=== PATIENT | male | born 1955 | race Caucasian/White ===

== ENCOUNTER 2020-05-07 15:10 | Inpatient (IN) | payer MEDICARE, MEDICAID, SELFPAY ==
--- NOTE | ~2020-05-07 | XR_ITS ---
EXAMINATION: XR chest 1V portable INDICATION: Diabetic foot ulcer, fever TECHNIQUE: Portable AP chest at 1725 hours COMPARISON: 10/14/2009 FINDINGS: The lungs are free of acute opacities. There is no pleural effusion or pneumothorax. The ca rdiomediastinal silhouette is normal. IMPRESSION: 1. No acute cardiopulmonary abnormality. Reviewed, dictated and finalized at location A.
--- NOTE | ~2020-05-07 | US_ITS ---
US arterial ankle brachial ind INDICATION: Diabetic foot wound. Peripheral arterial disease. TECHNIQUE: Segmental pressures and plethysmographic and Doppler waveforms of the brachial and lower e xtremity arteries were obtained. COMPARISON: 06/16/2017 FINDINGS: Right and left brachial artery pressures of 124 mm Hg and 140 mm Hg, respectively, are concordant (no rmal difference <= 30 mmHg). The right ankle-brachial index (ROSIE) is 1.21 (normal >= 0.9-1.0). The right great toe-brachial index (TBI) is 0.6 (normal >= 0.60). The left ROSIE is 1.05. The left TBI is 0.6. IMPRESSION: 1. Normal ankle-brachial indices. Reviewed, dictated and finalized at location A.
--- NOTE | ~2020-05-07 | XR_ITS ---
EXAMINATION: XR foot LT min 3V DATE: 05/07/2020 17:33 INDICATION: Left foot pain and ulceration TECHNIQUE: Dorsoplantar, lateral, and 2 oblique views of the left foot were obtained. COMPARISON: None. FINDINGS: A soft tissue ulceration is seen at the plantar aspect of the foot near the fourth and fift h metatarsophalangeal joints. There is a moderate amount of associated soft tissue gas which tracks p roximally in the dorsal/lateral aspect of the foot. There is osteopenia in the medial head of the fif th metatarsal. There also appears to be subtle osteopenia involving the medial base of the fifth prox imal phalanx, the lateral base of the fourth proximal phalanx, and the lateral head of the fourth met atarsal. No fracture is identified. Calcified atherosclerosis is noted. There are dorsal and plantar calcaneal enthesophytes. IMPRESSION: 1. Plantar soft tissue ulceration with soft tissue gas tracking proximally in the lateral foot and fi ndings suggestive of osteomyelitis involving the heads of the fourth and fifth metatarsals and bases of the fourth and fifth proximal phalanges. Reviewed, dictated and finalized at location A. IMPRESSION: 1. Plantar soft tissue ulceration with soft tissue gas tracking proximally in t he lateral foot and findings suggestive of osteomyelitis involving the heads of the fourth and fifth metatarsals and bases of the fourth and fifth proximal ph alanges.
--- NOTE | ~2020-05-07 | MR_ITS ---
EXAMINATION: MR foot LT wo/w con DATE: 05/08/2020 13:48 INDICATION: Left foot osteomyelitis. TECHNIQUE: Magnetic resonance imaging (MRI) of the left foot was performed without and with 18 mL Mul tiHance intravenous contrast. Sequences included sagittal STIR FSE and T1-weighted FSE and short-axis and long-axis T1-weighted FSE and T2-weighted FS FSE. Postcontrast sequences included short-axis and long-axis T1-weighted FS FSE. COMPARISON: Left foot radiographs 06/06/2020 FINDINGS: Bone alignment is normal. No fracture. There is mild osteoarthritis of first metatarsophala ngeal joint and some of the interphalangeal joints and midfoot joints. There is no decreased T1-weigh colin signal intensity in the bone marrow to suggest osteomyelitis. Lisfranc ligament is intact. There is widespread edema in the left foot soft tissues. There is soft tissue gas involving the third, four th, and fifth rays. There is widespread edema of the musculature, likely some combination of subacute denervation and myositis. There is widespread mild fatty atrophy of the musculature. There is an ulc er plantar to the heads of second and third metatarsals. IMPRESSION: 1. No evidence of osteomyelitis. 2. Cellulitis of the foot. Soft tissue gas may be from the plantar ulcer. Necrotizing fasciitis canno t be excluded. Reviewed, dictated and finalized at location A. IMPRESSION: 1. No evidence of osteomyelitis. 2. Cellulitis of the foot. Soft tissue gas may be from the plantar ulcer. Necro tizing fasciitis cannot be excluded.
[2020-05-07 15:16] VITALS: BP 127/61; PULSE 128; RESP 18; TEMP 37.9; O2SAT 98
[2020-05-07 15:28] LABS: Glucose Point of Care 433 (65-105)
[2020-05-07 15:50] LABS: Basophils Percent Auto 0.3 % (0.2-1.2); Eosinophils Percent Auto 0.1 % (0-4.4); Hematocrit 42.2 % (42.0-52.0); Hemoglobin 14.6 g/dL (14.0-18.0); Immature Granulocyte Percent A 2.1 % (0-0.5); Lymphocytes Absolute Auto 0.71 K/mm3 (0.9-3.2); Lymphocytes Percent Auto 4.9 % (18.3-44.2); Mean Corpuscular HGB Conc 34.6 g/dl (32-36); Mean Corpuscular Hemoglobin 29.9 pg (26-34); Mean Corpuscular Volume 86.3 fl (80-100); Mean Platelet Volume 11.6 fl (7.4-10.4); Monocytes Absolute Auto 0.8 K/mm3 (0.1-0.6); Monocytes Percent Auto 5.5 % (2.6-8.5); Neutrophils Absolute Auto 12.7 K/mm3 (1.3-6.7); Neutrophils Percent Auto 87.1 % (45.5-73.1); Platelet Count Result 155 k/mm3 (150-375); Red Blood Count 4.89 M/mm3 (4.6-6.20); Red Cell Distribution Width 12.5 % (11.5-14.5); White Blood Count 14.6 K/mm3 (4.5-10.0)
[2020-05-07 15:59] LABS: INR 1.1; Prothrombin Time 14.1 Seconds (11.1-14.7)
[2020-05-07 16:00] LABS: Partial Thromboplastin Time 30.9 SECONDS (22.3-36.8)
[2020-05-07 16:07] LABS: Lactic Acid Reflex 3.1 mmol/L (0.7-2.1)
[2020-05-07 16:11] LABS: Alanine Aminotransferase 14 U/L (4-50); Albumin Level 3.9 g/dL (3.5-5.1); Alkaline Phosphatase 108 U/L (38-126); Anion Gap 12 mmol/L (8-16); Aspartate Amino Transferase 16 U/L (17-59); Blood Urea Nitrogen 14 mg/dL (9-20); Calcium 9.3 mg/dL (8.4-10.2); Carbon Dioxide 26 mmol/L (22-30); Chloride 93 mmol/L (98-107); Estimated CRCL calculation 68 ml/min; Estimated Glomerular Filt Rate > 60; Glucose 496 mg/dL (75-110); Potassium 4.1 mmol/L (3.4-5.0); Sodium 131 mmol/L (137-145)
--- NOTE | 2020-05-07 16:35 | ECG_ITS ---
Measurements Intervals [place] Rate: 107 P: 23 SD: 151 QRS: 49 QRSD: 104 T: 17 QT: 314 QTc: 419 Interpretive Statements SINUS TACHYCARDIA NONSPECIFIC T-WAVE ABNORMALITY- INFERIOR LEADS BASELINE ARTIFACT- III, AVR, AVL, AVF ABNORMAL ECG Electronically Signed On 05-07-2020 17:46:19 CDT by Jesús Gomez D.O.
[2020-05-07 16:43] LABS: CRP 37.6 mg/dL (<1.0)
[2020-05-07 16:55] VITALS: BP 116/66; PULSE 112; RESP 19; O2SAT 98
[2020-05-07 17:12] LABS: Magnesium 1.8 mg/dL (1.6-2.3); Phosphorus 2.6 mg/dL (2.5-4.5)
[2020-05-07 17:16] LABS: Beta-Hydroxybutyrate/Acetoacetate 0.11 mmol/L (0.02-0.27)
[2020-05-07] MEDS: LACTATED RINGERS 1,000 ML 999 ML IV CONT (17:59)
[2020-05-07] MEDS: SODIUM CHLORIDE 0.9% IV 1,000 ML 999 ML IV CONT (17:59)
--- NOTE | 2020-05-07 18:23 | PCRCNOTE ---
Addendum entered by Nell Kim, [employer] 05/07/20 18:25: SEAN SUMNER NOTIFIED OF REFUSAL Original Note: PT. REFUSED ABG FIORELLA SUMNER NOTIFIED.
--- NOTE | 2020-05-07 18:31 | ED.GENADULT ---
HPI - General Adult General Chief complaint: Wound/Laceration <Yvan Walton PA-C - Last Filed: 05/07/20 18:40> Stated complaint: foot wound x 2 months/non compliant <Yvan Walton PA-C - Last Filed: 05/07/20 18:40> Time Seen by Provider: 05/07/20 16:34 <Yvan Walton PA-C - Last Filed: 05/07/20 18:40> Source: patient <Yvan Walton PA-C - Last Filed: 05/07/20 18:40> Mode of arrival: ambulatory <Yvan Walton PA-C - Last Filed: 05/07/20 18:40> Limitations: no limitations <Yvan Walton PA-C - Last Filed: 05/07/20 18:40> History of Present Illness HPI narrative: Patient is a 64-year-old male who presents to emergency department for evaluation of infection to the left foot patient notes ulceration to the forefoot that he has been managing himself with history of noncompliance with his diabetes hypertension has not seen primary care in 3 years patient notes aching pain worse with weightbearing and activity no subjective fever with chills sweats. Denies any vomiting diarrhea URI symptoms <Yvan Walton PA-C - Last Filed: 05/07/20 18:40> Related Data Home medications: Home Medications Medication Instructions Recorded Confirmed No Home Medications 05/08/20 05/08/20 <Yvan Walton PA-C - Last Filed: 05/07/20 18:40> Allergies/adverse reactions: Allergies Allergy/AdvReac Type Severity Reaction Status Date / Time Dust Allergy Mild Uncoded 10/31/17 11:40 <Yvan Walton PA-C - Last Filed: 05/07/20 18:40> Review of Systems Review of Systems: All systems reviewed & are unremarkable except as noted in HPI and below <Yvan Walton PA-C - Last Filed: 05/07/20 18:40> [facility] Past Medical History Medical History: Medical History (Updated 05/08/20 @ 16:57 by Lety Figueroa PA-C) Chronic constipation Diabetes mellitus Diabetic peripheral neuropathy Hypertension Impotence Noncompliance with medication regimen Peripheral artery disease <BENJA Montalvo Last Filed: 05/07/20 18:40> Surgical History Surgical History: Surgical History H/O arthroscopy of right knee <Yvan Walton PA-C - Last Filed: 05/07/20 18:40> Family History Family History: Family History (Updated 05/08/20 @ 09:53 by Mel Machado DO) Father , age 62 Myocardial infarct Lung disease Mother , age 73 Lung disease Sibling , age 67 Lung disease <Yvan Walton PA-C - Last Filed: 05/07/20 18:40> Social History Social History: Social History (Updated 05/08/20 @ 10:05 by Mel Machado DO) Social History: The patient currently lives at home with his significant other. 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 He has since not been working. Smoking status: Never smoker Second hand tobacco smoke exposure: Yes Alcohol intake: current Drinks per week: 3 Alcohol use details: The patient reports that he used to be a very heavy drinker drinking approximately 10 beers and 10 shots in 1 day. He has since became a social drinker. Specifically since the beginning of COVID- he occasionally has 1-3 beers while out with his significant other. Substance use: never Substance use type: does not use Living arrangements: with family Additional living arrangements comments: He currently lives with his significant other in [place], [place]. he is not Occupation/Education: retired Additional occupation/education comments: see above Gender identity (if verbalized by the patient): Male Spiritual care concerns: No Agree to blood products: Yes <Yvan Walton PA-C - Last Filed: 05/07/20 18:40> Exam Narrative: Exam Narrative: GENERAL: Well-appearing, well-nourished, and in no acute distress. HEAD: Normocephalic,
[2020-05-07 18:47] LABS: Reflex Lactic Acid Yes or No Add Lactic
[2020-05-07 18:48] LABS: Glucose Point of Care 347 (65-105)
[2020-05-07] MEDS: INSULIN HUMAN REGULAR (*BKC) 100 UNITS/ML 8 UNITS IV PUSH (18:56)
[2020-05-07 18:58] VITALS: BP 95/59; PULSE 104; RESP 18; O2SAT 97
[2020-05-07 19:13] VITALS: BP 95/59; PULSE 103; RESP 20; O2SAT 97
[2020-05-07 19:22] LABS: Lactic Acid 1.7 mmol/L (0.7-2.1)
[2020-05-07 19:36] VITALS: BP 96/68; PULSE 100; RESP 18; O2SAT 98
[2020-05-07 19:57] VITALS: BMI 29.7
[2020-05-07 19:58] VITALS: BP 117/58; PULSE 94; RESP 18; TEMP 36.6; O2SAT 98
--- NOTE | 2020-05-07 20:10 | ADMGEN ---
This patient, Rhett Spann, was admitted to Medical Room 340-01. Patient/family oriented to hospital policies and general routines including ID bracelet, bed and alarms, visiting hours, pain management, procedures, bathroom and other care routines, personal items, smoking policy, room service/diet, and visiting hours. Valuables list has been completed. Information on how to activate the Rapid Response Team has been discussed. Patient/Family are encouraged to report perceived risks to care and to ask questions if they do not understand what they are told or what they should do.
[2020-05-07] MEDS: LACTATED RINGERS 1,000 ML 100 ML IV CONT (20:57)
[2020-05-07 21:29] LABS: Glucose Point of Care 266 (65-105)
[2020-05-07] MEDS: HYDROcodone/acetaminophen (*CRX) 7.5-325 MG TABLET 1 TAB PO (21:47)
[2020-05-07] MEDS: FAMOTIDINE 20 MG/2 ML VIAL IV PUSH (21:49)
[2020-05-07 23:22] LABS: Add Urine Microscopic? YES; Appearance Urine Clear (Clear); Bacteria Urine Trace /hpf; Bilirubin Urine Negative (Negative); Blood Urine Negative (Negative); Color Urine Yellow (Yellow); Glucose Urine UA 3+ mg/dL (Negative); Ketones Urine Negative (Negative); Leukocyte Esterase Ur Negative LEU/UL (Negative); Nitrate Urine Negative (Negative); Protein Urine Negative (Negative); RBC Urine 0-2 /hpf (0-2); WBC Urine 0-3 /hpf
[2020-05-07 23:26] LABS: Specific Grav Ur 1.036 (1.001-1.035)
[2020-05-07 23:35] LABS: Glucose Point of Care 275 (65-105)
[2020-05-08] MEDS: INSULIN GLARGINE (*BKC) 100 UNITS/ML 10 UNITS SUB-Q (02:00)
[2020-05-08 02:14] LABS: SARS-CoV-2 RNA PCR Negative
[2020-05-08] MEDS: ONDANSETRON INJ 4 MG/2 ML VIAL IV PUSH ×2 (02:48→09:33)
[2020-05-08 05:28] VITALS: BP 129/69; PULSE 87; RESP 18; TEMP 36.1; O2SAT 97
[2020-05-08 05:57] LABS: Estimated CRCL calculation 68 ml/min; Estimated Glomerular Filt Rate > 60
[2020-05-08 08:00] LABS: Glucose Point of Care 215 (65-105)
[2020-05-08] MEDS: FAMOTIDINE 20 MG/2 ML VIAL IV PUSH ×2 (08:45→20:19)
[2020-05-08 08:52] LABS: Basophils Absolute Auto 0.1 K/mm3 (0.0-0.1); Basophils Percent Auto 0.4 % (0.2-1.2); Eosinophils Absolute Auto 0.1 K/mm3 (0-0.3); Eosinophils Percent Auto 0.5 % (0-4.4); Hematocrit 35.8 % (42.0-52.0); Hemoglobin 12.8 g/dL (14.0-18.0); Immature Granulocyte Absolute 0.17 K/mm3 (0.00-0.031); Immature Granulocyte Percent A 1.1 % (0-0.5); Lymphocytes Absolute Auto 0.67 K/mm3 (0.9-3.2); Lymphocytes Percent Auto 4.5 % (18.3-44.2); Mean Corpuscular HGB Conc 35.8 g/dl (32-36); Mean Corpuscular Hemoglobin 30.8 pg (26-34); Mean Corpuscular Volume 86.1 fl (80-100); Mean Platelet Volume 10.9 fl (7.4-10.4); Monocytes Absolute Auto 1.2 K/mm3 (0.1-0.6); Neutrophils Absolute Auto 12.7 K/mm3 (1.3-6.7); Neutrophils Percent Auto 85.5 % (45.5-73.1); Platelet Count Result 144 k/mm3 (150-375); Red Blood Count 4.16 M/mm3 (4.6-6.20); Red Cell Distribution Width 12.4 % (11.5-14.5); White Blood Count 14.9 K/mm3 (4.5-10.0)
[2020-05-08 08:55] VITALS: PULSE 88; RESP 18; O2SAT 98
--- NOTE | 2020-05-08 08:59 | PM.CNOR ---
Assessment and Plan Assessment and plan (1) Acute osteomyelitis of left foot: Code(s): M86.172 - Other acute osteomyelitis, left ankle and foot Status: Acute Assessment and Plan: 64-year-old male with a 3 month history of a left plantar diabetic foot ulcer over the 4th metatarsal head. Plantar ulcer with probing to bone. Surrounding tissue with redness, warmth, swelling which extends to the dorsal forefoot. Ecchymosis noted over the dorsal for foot as well. Patient does not have a primary care physician, does not see a jig worker and does not wear custom orthotics for depth shoes. He has not been managing his diabetes for approximately 3 years. He denies a history of diabetic foot ulcers or previous surgical intervention for diabetic foot ulcers. He has had no prior treatment for the ulcer. Radiographs of the left foot reveal a plantar soft tissue ulceration with soft tissue gas tracking proximally in the lateral foot and findings suggestive of osteomyelitis involving the heads of the fourth and fifth metatarsals and bases of the fourth and fifth proximal phalanges. Patient to remain NPO at this time for further discussion with Dr. Cotton. Will obtain hemoglobin A1c and a diabetic nurse educator consult in the interim. Dressing was placed. Patient to have dressing changes daily in the interim. Nursing notified to keep the wound covered. Elevate the left lower extremity on pillows. Patient may be weight-bearing on heel with a postop shoe. Walker for balance. (2) Acute hyperglycemia: Code(s): R73.9 - Hyperglycemia, unspecified Status: Acute Assessment and Plan: Patient would benefit from a diabetic nurse educator. We will obtain hemoglobin A1c. Patient will need close diabetic control for optimal healing. (3) Sepsis: Code(s): A41.9 - Sepsis, unspecified organism Status: Acute Assessment and Plan: Continue IV antibiotics under the direction of the medicine team. History of Present Illness HPI Consult date: 05/08/20 Requesting physician: Yvan Walton PA-C Consult reason: other (Left DFU ) Chief complaint: Osteomyelitis left foot, hyperglycemia, sepsis Narrative: 64-year-old male admitted from the emergency room for a left plantar diabetic foot ulcer. Patient reports a 3 month history of a left plantar diabetic foot ulcer which he has been self treating. He has not seen his primary care physician in 3 years. He does not have a jig worker that he sees regularly. He does not wear custom orthotics for depth shoes. He does not take anything for his diabetes. He does not take any medications at all. He reports gradual increase in swelling and pain to the left foot which prompted his arrival to the emergency room. Radiographs from the ED revealed a plantar soft tissue ulceration with soft tissue gas tracking proximally in the lateral foot and findings suggestive of osteomyelitis involving the heads of the fourth and fifth metatarsals and bases of the fourth and fifth proximal phalanges. Orthopedic consultation requested by the emergency room physician. Review of Systems Constitutional: Constitutional: Reports as per HPI, Denies chills, Denies fatigue and Denies weakness ENT: Reports Normal hearing present and Denies nasal discharge Cardiovascular: Cardiovascular: Denies chest pain, Reports pedal edema ( Left lower extremity) and Denies lightheadedness Respiratory: Respiratory: Denies cough, Denies dyspnea and Denies wheezing Gastrointestinal: Gastrointestinal: Denies abdominal pain, Denies diarrhea, Reports nausea and Reports vomiting Genitourinary: Genitourinary: Denies dysuria and Denies urinary frequency Musculoskeletal: Musculoskeletal: Reports as per HPI Integumentary/Breasts: Skin/Breast: Reports as per HPI, Reports erythema and Reports unusual bruising ( dorsal foot) Neurologic: Reports abnormal gait ( antalgic left lower extremity) and Reports numbness ( numb
[2020-05-08 09:02] LABS: Alanine Aminotransferase 9 U/L (4-50); Albumin Level 3.2 g/dL (3.5-5.1); Alkaline Phosphatase 88 U/L (38-126); Anion Gap 7 mmol/L (8-16); Aspartate Amino Transferase 12 U/L (17-59); Bilirubin,Total 1.3 mg/dL (0.2-1.3); Blood Urea Nitrogen 14 mg/dL (9-20); Calcium 8.5 mg/dL (8.4-10.2); Carbon Dioxide 26 mmol/L (22-30); Chloride 99 mmol/L (98-107); Estimated CRCL calculation 75 ml/min; Estimated Glomerular Filt Rate > 60; Glucose 232 mg/dL (75-110); Magnesium 1.7 mg/dL (1.6-2.3); Potassium 4.5 mmol/L (3.4-5.0); Sodium 132 mmol/L (137-145)
[2020-05-08 09:26] LABS: Hemoglobin A1C 8.9 % (<5.7)
[2020-05-08] MEDS: SODIUM CHLORIDE 0.9% IV 1,000 ML 100 ML IV CONT (09:33)
--- NOTE | 2020-05-08 09:45 | PM.IMHP ---
H&P: HPI History of Present Illness Date/Time: 05/08/20 06:00 Chief complaint: left foot wound Narrative: Rhett Spann is a 64 year old male with a past medical history of type 2 diabetes mellitus, diabetic peripheral neuropathy, peripheral artery disease and non adherence to medical regimen who presented to the ER with 3 months of a left foot wound. The patient reports that 3 months ago he noticed a small area vomit foot that seemed to be like clear blister. Few days later he developed an area next to it that appear to be a blood blister. Have TURP about a week he pop the blisters and started applying antibiotic ointment. However , instead of getting better the wound continue to get deeper and was developing more drainage. Over the last 5 weeks he has noticed increased swelling and pain in his foot. Five weeks ago he started developing vomiting, chills and generalized fatigue. He reports that over the last 2 weeks his chills and vomiting have improved. However the pain in his foot has worsened and he has developed swelling in the foot with discoloration in his lateral foot. He reports that the pain is a 7/10 in intensity and is unrelieved despite elevation of the foot. The pain is worse with stepping of the foot or with hitting the foot he reports the pain is unbearable at those times. He reports that his feet are always stinging and burning. He has to sleep with his feet hanging off the into the bed to get any relief. He has longstanding history of diabetes for approximately 21 years. About 3 years ago he threw away all of his diabetic medications and has not seen a physician since that time. He reports that he has otherwise healthy and active. He reports that he is enjoying his life. he used to be on Byetta for his diabetes. He has had peripheral neuropathy for many years. In the past he was on Neurontin for his peripheral neuropathy but did not seem to help at that time. Over the recent months he has been using some of his girlfriend's Neurontin. He has been taking 2 of her Neurontin tablets twice a day with improvement in his pain. His girlfriend was running out of Neurontin so he quit taking it for a couple of months and restarted the Neurontin again over the last 3 or 4 days due to his worsening pain. He reports that the Neurontin actually does improve his discomfort now. He also reports peripheral neuropathy in his hands up to his wrists. He has noticed decreased vision. He reports now that he is receiving some insulin in his sugars are going down his vision has improved. He went to an eye doctor about 3 months ago and was told he had some irregularities in the vessels of his eyes. He has a longstanding history of impotence. He denies a history of kidney disease. On arrival to the ER it sounds as if the patient was having rigors. His temperature at that time was 100.3. He denies any chest pain, palpitations or shortness of breath. He reports resolution of his prior nausea and vomiting. He has had a history of chronic constipation and will only have a bowel movement every 7-10 days. He reports that he has tried MiraLax and stool softeners in the past with only minimal relief in his symptoms. He takes was sounds as if the a [id number]-srevlvf Dulcolax and will eventually have a large hard bowel movement. He has never had a colonoscopy. he has multiple teeth that are broken at the gum line and frequently become painful. He reports that he will pull teeth out on his own if they become bad enough. He has several teeth in his mouth that are uncomfortable at this time. he has a history of claudication with ultrasound Dopplers of his lower extremities in June 2017 which demonstrated evidence of bilateral peripheral artery disease left greater than right. Review of Systems Review of Systems: Narrative: 12 systems were reviewed with pertinent positives and negatives per HPI. Except as documented in the HPI, all other systems were r
--- NOTE | 2020-05-08 10:53 | PM.IMPN ---
Progress Note: A&P Assessment and Plan (1) Acute osteomyelitis of left foot: Code(s): M86.172 - Other acute osteomyelitis, left ankle and foot Status: Acute Assessment and Plan: Patient presents with diabetic wound to left foot that began 3 months ago. Orthopedic surgery and infectious disease following - appreciate recommendations. Continue IV Zosyn today. (2) Sepsis: Qualifiers: Sepsis type: sepsis due to unspecified organism Sepsis acute organ dysfunction status: unspecified Qualified Code(s): A41.9 - Sepsis, unspecified organism Code(s): A41.9 - Sepsis, unspecified organism Status: Acute Assessment and Plan: Evident on arrival by leukocytosis, fever and tachycardia. Suspected source is skin, see above. Wound and blood cultures pending. Monitor vital signs and urine output. Continue IV Zosyn. (3) Uncontrolled diabetes mellitus: Qualifiers: Diabetes mellitus type: type 2 Glycemic state: with hyperglycemia Qualified Code(s): E11.65 - Type 2 diabetes mellitus with hyperglycemia Code(s): E11.65 - Type 2 diabetes mellitus with hyperglycemia Status: Acute Assessment and Plan: Patient is historically noncompliant, has not seen a doctor in years and quit taking diabetes medications 3 years ago. Hgb A1c is 8.9%. He has been started on metformin in addition to a basal-bolus insulin regimen for now. Appreciate Diabetes Education consult. Continue to monitor with Accu-Cheks and cover sliding scale insulin. Increase Lantus for this evening. (4) Chronic constipation: Code(s): K59.09 - Other constipation Status: Acute Assessment and Plan: Patient has been started on BID MiraLax and FiberCon. (5) Insomnia: Qualifiers: Insomnia type: unspecified Qualified Code(s): G47.00 - Insomnia, unspecified Code(s): G47.00 - Insomnia, unspecified Status: Acute Assessment and Plan: Melatonin. Subjective Date/time seen: 05/08/20 10:45 Interval history: Mr. Spann is a 64yo M with uncontrolled DM admitted for left foot diabetic ulcer. He reports his pain is controlled at rest but sometimes gets shooting pain with movement. He denies chest pain or shortness of breath. He denies nausea, vomiting, or abdominal pain. Review of Systems Review of Systems: Narrative: Twelve systems were reviewed with pertinent positives and negatives as per HPI. Exam Narrative: Exam Narrative: General: Male resting supine in bed in no acute distress. HEENT: Normocephalic, EOMI, oral mucosa moist. Cardiovascular: Rate and rhythm are regular. Respiratory: Lungs clear to auscultation all barrientos. Non-labored breathing. Abdomen: Soft, non-tender, non-distended, bowel sounds present. Extremities: Peripheral pulses intact. 1+ swelling to left lower extremity. Dressing to left foot is clean/dry/intact and just seen by ortho this morning so not removed for my exam. Neuro: No focal neurological deficits. Speech is clear. Objective Data Vital Signs Vital Signs: Last Vital Signs Temp 97.5 F L 05/08/20 14:00 Pulse 92 05/08/20 14:00 Resp 20 05/08/20 14:00 BP 120/69 05/08/20 14:00 Pulse Ox 100 05/08/20 14:00 Intake/Output Intake/Output: Intake & Output 05/05/20 05/06/20 05/07/20 05/08/20 23:59 23:59 23:59 23:59 Intake Total 1100 1816 Output Total 425 Balance 1100 1391 Meds/Results Medications: Active Medications Generic Name Dose Route Start Last Admin Trade Name Freq PRN Reason Stop Dose Admin Calcium Polycarbophil 1,250 mg 05/08/20 17:00 Fiber Con PO BID KAYCE Enoxaparin Sodium 40 mg 05/08/20 10:30 Lovenox SUB-Q DAILY KAYCE Famo
[2020-05-08 11:30] LABS: Glucose Point of Care 193 (65-105)
[2020-05-08] MEDS: GABAPENTIN 300 MG CAPSULE PO ×2 (13:52→17:15)
[2020-05-08] MEDS: ENOXAPARIN 40 MG/0.4 ML SYRINGE SUB-Q (13:52)
[2020-05-08 14:00] VITALS: BP 120/69; PULSE 92; RESP 20; TEMP 36.4; O2SAT 100
--- NOTE | 2020-05-08 14:04 | WPDINFPN2 ---
Progress Note: A&P Assessment and Plan (1) Acute osteomyelitis of left foot: Code(s): M86.172 - Other acute osteomyelitis, left ankle and foot Status: Acute Assessment and Plan: Acute OM of L 4th and 5th MTs. DM, poor control. ASPVD. REC Arterial dopplers set up. MRI just done for correlation with exam and plain films. PipTazo #1. Will need extended IV therapy and probably surgical resection also. Glycemic control. Subjective Date/time seen: 05/08/20 14:04 Objective Data Vital Signs Vital Signs: Vital Signs - 24 hr 05/07/20 15:16 05/07/20 16:55 05/07/20 18:58 Temperature 37.9 C H Pulse Rate 128 H 112 H 104 H Respiratory Rate 18 19 18 Blood Pressure 127/61 116/66 95/59 L Pulse Oximetry 98 98 97 05/07/20 19:13 05/07/20 19:36 05/07/20 19:58 Temperature 36.6 C Pulse Rate 103 H 100 94 Respiratory Rate 20 18 18 Blood Pressure 95/59 L 96/68 L 117/58 L Pulse Oximetry 97 98 98 05/08/20 05:28 05/08/20 08:55 Temperature 36.1 C L Pulse Rate 87 88 Respiratory Rate 18 18 Blood Pressure 129/69 Pulse Oximetry 97 98 Intake/Output Intake/Output: Intake & Output 05/05/20 05/06/20 05/07/20 05/08/20 23:59 23:59 23:59 23:59 Intake Total 1100 1866 Output Total 425 Balance 1100 1441 Meds/Results Medications: Active Medications Generic Name Dose Route Start Last Admin Trade Name Freq PRN Reason Stop Dose Admin Calcium Polycarbophil 1,250 mg 05/08/20 17:00 Fiber Con PO BID KAYCE Enoxaparin Sodium 40 mg 05/08/20 10:30 05/08/20 13:52 Lovenox SUB-Q 40 mg DAILY KAYCE Administration Famotidine 20 mg 05/07/20 21:00 05/08/20 08:45 Pepcid Iv IV PUSH 20 mg Q12HR KAYCE Administration Gabapentin 300 mg 05/08/20 13:00 05/08/20 13:52 Neurontin PO 300 mg TID KAYCE Administration Piperacillin/Tazobactam/Dextrose 3.375 gm in 50 mls @ 100 mls/hr 05/08/20 00:00 05/08/20 12:10 Zosyn 3.375 Gm/D5w 50ml Pm IVPB Infused Q6HR KAYCE Infusion Acetaminophen 1,000 mg in 100 mls @ 400 mls/hr 05/07/20 18:38 05/08/20 09:50 Ofirmev 1,000 Mg Ivpb IVPB 05/08/20 18:39 Infused Q6H PRN Infusion Mild Pain (1-3) or Fever Vancomycin HCl 1,500 mg in 500 mls @ 333.333 mls/hr 05/08/20 13:00 05/08/20 13:52 Vancomycin 1,500 Mg/D5w 500 Ml IVPB 250 mls/hr Q18H KAYCE Administration Sodium Chloride 1,000 mls @ 100 mls/hr 05/08/20 09:20 05/08/20 12:40 Normal Saline Iv IV CONT 0 mls/hr .Q10H KAYCE Infusion Insulin Aspart 3 - 6 units 05/08/20 12:00 05/08/20 11:37 Novolog SUB-Q Not Given Q6HR [facility] Protocol Insulin Glargine 10 units 05/08/20 21:00 Lantus SUB-Q HS KAYCE Melatonin 5 mg 05/08/20 21:00 Melatonin PO HS [facility] Metformin HCl 500 mg 05/09/20 08:00 Glucophage PO DAILY@0800 [facility] Ondansetron HCl 4 mg 05/07/20 18:38 05/08/20 09:33 Zofran Inj IV PUSH 4 mg Q4H PRN Administration Nausea Polyethylene Glycol 17 gm 05/08/20 17:00 Miralax PO BID [facility] Radiology Results: ITS Impressions Foot X-Ray 05/07/20 17:42 IMPRESSION: 1. Plantar soft tissue ulceration with soft tissue gas tracking proximally in the lateral foot and findings suggestive of osteomyelitis involving the heads of the fourth and fifth metatarsals and bases of the fourth and fifth proximal phalanges. Chest X-Ray 05/07/20 17:47 IMPRESSION: 1. No acute cardiopulmonary abnormality. Labs Labs: Laboratory Results - last 24 hr 05/07/20 05/07/20 05/07/20 15:25 15:31 15:31 WBC RBC Hgb Hct MCV MCH MCHC RDW Plt Count MPV Immature Gran % (Auto) Neut % (Auto) Lymph % (Auto) [place] % (Auto) Eos % (Auto) Baso % (Auto) Lymph # (Auto) [place] # (Auto) Eos # (Auto) Baso # (Auto) Abs Immat Gran (auto) Absolute Neuts (auto) Absolute Nucleated RBC Nucleated RBC % % Immature Plt Fraction PT INR APTT
[2020-05-08 14:53] LABS: Glucose Point of Care 188 (65-105)
--- NOTE | 2020-05-08 15:52 | CONS_ITS ---
DATE OF CONSULTATION: 05/08/2020 REASON FOR CONSULTATION: Osteomyelitis, left foot and toes. HISTORY OF PRESENT ILLNESS: A 64-year-old male with diabetes since about the age of 20. In the last several years, he has not taken his diabetic medications and does not follow his Accu-Cheks. He provides no particular reason for not doing so. He did have arterial Dopplers or at least ankle arm indices performed some 3 years ago, which were abnormal. He was asked to see his primary physician, but apparently did not do so. He has diminished sensation over his feet at baseline. About 3 months prior to admission, he noted a blood blister over the plantar aspect of the left foot area of the 4th metatarsal head. He popped this open about 3 days later. Since then, he has had a progressive ulcer in the same area. He was applying Neosporin underneath the Band-Aid. There was pain in the lateral aspect of the foot and presented to the emergency room last evening and has been started on piperacillin tazobactam today. Consultation requested. Vancomycin has also been given. He was hyperglycemic on arrival. He has had no previous foot or toe surgeries and knows of no major trauma. He knows of no other vascular compromise except as noted above. No symptoms on the right foot. He does have calluses. He does not customarily see a elevator dispatcher. He was febrile earlier, but no rigors nor night sweats. There has been no nausea or vomiting. ALLERGIES: NO KNOWN DRUG ALLERGY. HABITS: Never smoked. He is a social drinker, though formally drank to excess. No illicit drugs. PRESENT MEDICATIONS: List reviewed. No immunosuppressants. PAST MEDICAL HISTORY: In addition to the above, peripheral neuropathy, chronic constipation, hypertension, ED, arthroscopic knee surgery on the right. REVIEW OF SYSTEMS: Poor dentition, not actively seeing a dentist. Hyperglycemia, constipation, declining eyesight. 14-point review otherwise negative. FAMILY HISTORY: Cancer associated with smoking in multiple family members. No diabetes in primary relatives. SOCIAL HISTORY: He is , has a live-in girlfriend. 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 He is planning on not returning to work. PHYSICAL EXAMINATION: GENERAL: This is a middle-aged male who appears his actual age. No acute distress. VITAL SIGNS: T-max 37.9, 88, 18, 129/69. SKIN: No generalized rash. Warm and dry. EENT: The pupils are equal, round, and reactive to light. No conjunctival injection. Poor dentition. Otherwise, oropharynx, oral mucosa normal. No paranasal sinus erythema, edema or tenderness. NECK: No masses, thyromegaly or meningismus. LUNGS: Clear to auscultation and percussion. BACK: No CVAT. CHEST: Equal expansion. Normal AP diameter. CARDIAC: Regular rate and rhythm without murmur or gallop. Popliteal pulses are 2+. Dorsalis pedis on the left is 1+, posterior tibial not palpable. ABDOMEN: He has no abdominal bruits. Abdomen is soft, not nontender. No organomegaly, masses, or distention. He has normal bowel sounds. EXTREMITIES: On the right, no clubbing, cyanosis, or edema. No muscle wasting. No venous varicosities. On the left, he has red purplish discoloration over the dorsum of the foot, lateral aspect, and he has a deep ulcer 1 cm in diameter with surrounding callus. No purulence. No odor. No areas of necrosis. LABORATORY DATA: Blood cultures, no growth after short incubation. Wound culture is in process. This was a superficial swab of the ulcer, gram stain, many mixed bacterial marya. White blood cell count 14.6 initially, now 14.9; hemoglobin 12.8; platelets are 144. His differential shows a mild left shift. Prothrombin time normal. He has hyponatremia, glucose initially 496
[2020-05-08 17:03] LABS: Glucose Point of Care 242 (65-105)
[2020-05-08] MEDS: calcium polycarbophiL 625 MG TABLET 1250 MG PO (17:15)
[2020-05-08] MEDS: polyethylene glycoL 3350 17 GM POWD.PACK PO (17:16)
[2020-05-08] MEDS: INSULIN ASPART (*BKC) 100 UNITS/ML SUB-Q (17:19)
[2020-05-08 19:27] VITALS: BP 143/78; PULSE 112; RESP 20; TEMP 37.2; O2SAT 98
[2020-05-08] MEDS: MELATONIN 5 MG TABLET PO (20:19)
[2020-05-08] MEDS: INSULIN GLARGINE (*BKC) 100 UNITS/ML 15 UNITS SUB-Q (20:31)
[2020-05-08] MEDS: HYDROcodone/acetaminophen (*CRX) 5-325 MG TABLET 1 TAB PO (20:48)
[2020-05-08 22:26] LABS: Glucose Point of Care 260 (65-105)
[2020-05-09] MEDS: INSULIN ASPART (*BKC) 100 UNITS/ML SUB-Q ×4 (00:23→11:33)
[2020-05-09] MEDS: SODIUM CHLORIDE 0.9% IV 1,000 ML 100 ML IV CONT (00:30)
[2020-05-09 00:47] LABS: Glucose Point of Care 222 (65-105)
[2020-05-09 05:40] LABS: Basophils Percent Auto 0.3 % (0.2-1.2); Eosinophils Absolute Auto 0.1 K/mm3 (0-0.3); Eosinophils Percent Auto 0.4 % (0-4.4); Hematocrit 35.1 % (42.0-52.0); Hemoglobin 12.1 g/dL (14.0-18.0); Immature Granulocyte Absolute 0.32 K/mm3 (0.00-0.031); Lymphocytes Absolute Auto 0.82 K/mm3 (0.9-3.2); Lymphocytes Percent Auto 5.1 % (18.3-44.2); Mean Corpuscular HGB Conc 34.5 g/dl (32-36); Mean Corpuscular Hemoglobin 29.4 pg (26-34); Mean Corpuscular Volume 85.2 fl (80-100); Mean Platelet Volume 11.6 fl (7.4-10.4); Monocytes Absolute Auto 1.4 K/mm3 (0.1-0.6); Monocytes Percent Auto 8.5 % (2.6-8.5); Neutrophils Absolute Auto 13.4 K/mm3 (1.3-6.7); Neutrophils Percent Auto 83.7 % (45.5-73.1); Platelet Count Result 158 k/mm3 (150-375); Red Blood Count 4.12 M/mm3 (4.6-6.20); Red Cell Distribution Width 12.4 % (11.5-14.5)
[2020-05-09 05:54] VITALS: BP 112/60; PULSE 100; RESP 16; TEMP 36.8; O2SAT 98
[2020-05-09 06:00] LABS: Anion Gap 9 mmol/L (8-16); Blood Urea Nitrogen 13 mg/dL (9-20); Calcium 8.6 mg/dL (8.4-10.2); Carbon Dioxide 23 mmol/L (22-30); Chloride 99 mmol/L (98-107); Estimated CRCL calculation 75 ml/min; Estimated Glomerular Filt Rate > 60; Glucose 225 mg/dL (75-110); Magnesium 1.7 mg/dL (1.6-2.3); Potassium 3.8 mmol/L (3.4-5.0); Sodium 131 mmol/L (137-145)
[2020-05-09 06:18] LABS: Glucose Point of Care 203 (65-105)
[2020-05-09] MEDS: ENOXAPARIN 40 MG/0.4 ML SYRINGE SUB-Q (08:37)
[2020-05-09] MEDS: FAMOTIDINE 20 MG/2 ML VIAL IV PUSH ×2 (08:37→20:00)
[2020-05-09] MEDS: GABAPENTIN 300 MG CAPSULE PO ×3 (08:37→16:31)
[2020-05-09] MEDS: polyethylene glycoL 3350 17 GM POWD.PACK PO ×2 (08:37→16:32)
[2020-05-09] MEDS: HYDROcodone/acetaminophen (*CRX) 5-325 MG TABLET 1 TAB PO (08:54)
[2020-05-09 09:40] VITALS: BMI 29.7
[2020-05-09] MEDS: calcium polycarbophiL 625 MG TABLET 1250 MG PO ×2 (10:29→16:32)
--- NOTE | 2020-05-09 10:38 | PM.PNORT ---
Progress Note: A&P Assessment and Plan (1) Cellulitis of left foot: Code(s): L03.116 - Cellulitis of left lower limb Status: Acute Assessment and Plan: MRI reviewed left foot. No evidence of osteomyelitis on imaging. Ulcer does probe to the plantar 4th metatarsal. Cultures showing strep B. planned continue with IV antibiotics and follow progress. If continues to improve may only require superficial ulcer debridement. If he does not show signs of improvement may require debridement or resection metatarsal bone. Patient on the OR schedule for Tuesday depending on progress over the weekend. Appreciate Infectious Disease. 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: Code(s): E08.621 - Diabetes mellitus due to underlying condition with foot ulcer; L97.509 - Non-pressure chronic ulcer of other part of unspecified foot with unspecified severity Status: Acute Assessment and Plan: Continue with daily dressing changes and wound packing with Nu Gauze Subjective Subjective Date/Time Seen: 05/09/20 10:38 No new complaints, mri lt foot yesterday Exam Const: General: comfortable and no acute distress HENMT: Mouth: Yes moist mucous membranes Eyes: General: appearance normal, both eyes and all related structures Sclera: sclerae normal Pupils: Equal, round and reactive pupils present Neck: Neck: supple and no JVD Resp: Effort & Inspection: normal respiratory effort Auscultation: clear to auscultation bilaterally Cardio: Rate: regular rate Rhythm: regular rhythm GI: Inspection: non-distended GI Palp: Yes Soft to palpation and No Tenderness to palpation present (GI) Skin: Other: Left plantar diabetic foot ulcer over the 4th metatarsal head measures 1.0 cm in width x 1.6 cm in length with 1.4 cm in depth which probes to the metatarsal head. Necrotic tissue at the base of the ulcer. Callus surrounding ulceration. No drainage noted. Surrounding tissue with redness, warmth, swelling. Swelling extends to the dorsal aspect of the foot. Erythema and ecchymosis to the dorsal lateral aspect of the left foot as well. Erythema more consolidated. No active drainage Neuro: General: No gait normal ( Antalgic left lower extremity.) Cognition (Neuro): normal cognition Sensory Exam: No normal sensation Other: Patient is insensate from toes to the baker of the left lower extremity. Sensation intact to the right ankle, midfoot and forefoot. Extrem: Right lower extremity: normal to inspection, full ROM, normal capillary refill and foot ( No ulcers noted.) Left lower extremity: lower leg, ankle ( positive ankle dorsiflexion/ plantar flexion) and foot Psych: Mental Status: mental status grossly normal Affect: normal affect Objective Data Vital Signs Vital Signs: Vital Signs - 24 hr 05/08/20 14:00 05/08/20 19:27 05/09/20 05:54 Temperature 97.5 F L 99 F 98.3 F Pulse Rate 92 112 H 100 Respiratory Rate 20 20 16 Blood Pressure 120/69 143/78 H 112/60 Pulse Oximetry 100 98 98 Intake/Output Intake/Output: Intake & Output 05/06/20 05/07/20 05/08/20 05/09/20 23:59 23:59 23:59 23:59 Intake Total 1100 2896 2580 Output Total 925 625 Balance 1100 1971 1954 Meds/Results Medications: Active Medications Generic Name Dose Route Start Last Admin Trade Name Freq PRN Reason Stop Dose Admin Hydrocodone Bitart/Acetaminophen 1 tab 05/08/20 20:38 05/09/20 08:54 [place] 5-325 Mg PO 1 tab Q4H PRN Administration Pain Rated 4-6 Calcium Polycarbophil 1,250 mg 05/08/20 17:00 05/09/20 10:29 Fiber Con PO 1,250 mg BID KAYCE Administration Enoxaparin Sodium 40 mg 05/08/20 10:30 05/09/20 08:37 Lovenox SUB-Q 40 mg DAILY KAYCE Administration Famotidine 20 mg 05/07/20 21:00 05/09/20 08:37 Pepcid Iv IV PUSH 20 mg Q12HR KAYCE Administration Gabapentin 300 mg 05/08/20 13:00 05/09/20 08:37 Neurontin PO 300 mg TID SC
--- NOTE | 2020-05-09 11:17 | PM.IMPN ---
Progress Note: A&P Assessment and Plan (1) Acute osteomyelitis of left foot: Code(s): M86.172 - Other acute osteomyelitis, left ankle and foot Status: Acute Assessment and Plan: Patient presents with diabetic wound to left plantar 4th and 5th metatarsals that began 3 months ago. Orthopedic surgery and infectious disease following - appreciate recommendations. Continue IV Zosyn today. Anticipate need for long-term antibiotics per Dr Moore's recommendations. Noted Dr Cotton's plan to monitor his progress over the weekend and keep his slot on the OR schedule for Tuesday in the event he does not make much improvement; may require debridement or resection of bone pending progress. (2) Sepsis: Qualifiers: Sepsis acute organ dysfunction status: unspecified Sepsis type: sepsis due to unspecified organism Qualified Code(s): A41.9 - Sepsis, unspecified organism Code(s): A41.9 - Sepsis, unspecified organism Status: Acute Assessment and Plan: Evident on arrival by leukocytosis, fever and tachycardia. Suspected source is skin, see above. Wound culture growing Group B Strep. Blood cultures are pending with no growth to date. Monitor vital signs and urine output. Continue IV Zosyn. (3) Uncontrolled diabetes mellitus: Qualifiers: Diabetes mellitus type: type 2 Glycemic state: with hyperglycemia Qualified Code(s): E11.65 - Type 2 diabetes mellitus with hyperglycemia Code(s): E11.65 - Type 2 diabetes mellitus with hyperglycemia Status: Acute Assessment and Plan: Patient is historically noncompliant, has not seen a doctor in years and quit taking diabetes medications 3 years ago. Hgb A1c is 8.9%. He has been started on metformin. Seen by DM educator today. Lantus will be too expensive for him. We will start him on Novolin 70/30 which he can get cheaper at [facility]; start this regimen and monitor response. Continue to monitor with Accu-Cheks and cover sliding scale insulin. (4) Chronic constipation: Code(s): K59.09 - Other constipation Status: Acute Assessment and Plan: Patient has been started on BID MiraLax and FiberCon. (5) Insomnia: Qualifiers: Insomnia type: unspecified Qualified Code(s): G47.00 - Insomnia, unspecified Code(s): G47.00 - Insomnia, unspecified Status: Acute Assessment and Plan: Melatonin. Subjective Date/time seen: 05/09/20 1045 Interval history: Mr. Spann is a 64yo M with uncontrolled DM admitted for left foot diabetic ulcer. He reports his pain is controlled at present while he is resting, some shooting pain to left leg/foot with movement. Otherwise offers no complaints at time of my encounter. I am notified by nursing later this afternoon that he had a brief episode of diaphoresis and shortness of breath that resolved quickly, during which his vital signs were normal. Review of Systems Review of Systems: Narrative: Twelve systems were reviewed with pertinent positives and negatives as per HPI. Exam Narrative: Exam Narrative: General: Male resting supine in bed in no acute distress. HEENT: Normocephalic, EOMI, oral mucosa moist. Cardiovascular: Rate and rhythm are regular. Respiratory: Lungs clear to auscultation all barrientos. Non-labored breathing. Abdomen: Soft, non-tender, non-distended, bowel sounds present. Extremities: Peripheral pulses intact. 1+ swelling to left lower extremity. Dressing to left foot is clean/dry/intact. Neuro: No focal neurological deficits. Speech is clear. Objective Data Vital Signs Vital Signs: Last Vital Signs Temp 98.3 F 05/09/20 15:03 Pulse 97 05/09/20 15:03 Resp 18 05/09/20 15:03 BP 112/76
[2020-05-09 11:55] LABS: Glucose Point of Care 162 (65-105)
--- NOTE | 2020-05-09 14:31 | WPDINFPN2 ---
Progress Note: A&P Assessment and Plan (1) Acute osteomyelitis of left foot: Code(s): M86.172 - Other acute osteomyelitis, left ankle and foot Status: Acute Assessment and Plan: 1. Acute OM of L 4th and 5th MTs clinically, although MRI more suggestive of severe soft tissue infection. In terms of his choice and duration of antibiotic therapy, the distinction is less important 2. DM, poor control. 3. ASPVD, with borderline normal ROSIE on left. REC PipTazo #2, 6 weeks anticipated through 06/17. Glycemic control. Possible surgical debridement in 3 days Subjective Date/time seen: 05/09/20 14:31 Interval history: no complaints, other than episode of diaphoresis overnight Exam Narrative: Exam Narrative: afebrile Const: General: no acute distress Resp: Effort & Inspection: normal respiratory effort Auscultation: clear to auscultation bilaterally Cardio: Rate: regular rate Rhythm: regular rhythm Heart sounds: no gallops and no murmurs GI: Inspection: non-distended GI Palp: Yes Soft to palpation and No Tenderness to palpation present (GI) Skin: General skin exam: normal color Extrem: General: edema Objective Data Vital Signs Vital Signs: Vital Signs - 24 hr 05/08/20 19:27 05/09/20 05:54 Temperature 37.2 C 36.8 C Pulse Rate 112 H 100 Respiratory Rate 20 16 Blood Pressure 143/78 H 112/60 Pulse Oximetry 98 98 Intake/Output Intake/Output: Intake & Output 05/06/20 05/07/20 05/08/20 05/09/20 23:59 23:59 23:59 23:59 Intake Total 1100 2896 2630 Output Total 925 923 Balance 1100 1971 2004 Meds/Results Medications: Active Medications Generic Name Dose Route Start Last Admin Trade Name Freq PRN Reason Stop Dose Admin Hydrocodone Bitart/Acetaminophen 1 tab 05/08/20 20:38 05/09/20 08:54 [place] 5-325 Mg PO 1 tab Q4H PRN Administration Pain Rated 4-6 Calcium Polycarbophil 1,250 mg 05/08/20 17:00 05/09/20 10:29 Fiber Con PO 1,250 mg BID KAYCE Administration Enoxaparin Sodium 40 mg 05/08/20 10:30 05/09/20 08:37 Lovenox SUB-Q 40 mg DAILY KAYCE Administration Famotidine 20 mg 05/07/20 21:00 05/09/20 08:37 Pepcid Iv IV PUSH 20 mg Q12HR KAYCE Administration Gabapentin 300 mg 05/08/20 13:00 05/09/20 13:23 Neurontin PO 300 mg TID KAYCE Administration Piperacillin/Tazobactam/Dextrose 3.375 gm in 50 mls @ 100 mls/hr 05/08/20 00:00 05/09/20 12:15 Zosyn 3.375 Gm/D5w 50ml Pm IVPB Infused Q6HR KAYCE Infusion Insulin Aspart 3 - 6 units 05/09/20 08:20 05/09/20 11:32 Novolog SUB-Q Not Given TIDWM [facility] Protocol Insulin Aspart 5 units 05/09/20 08:20 05/09/20 11:33 Novolog SUB-Q 5 units TIDWM KAYCE Administration Insulin Glargine 15 units 05/08/20 21:00 05/08/20 20:31 Lantus SUB-Q 15 units HS KAYCE Administration Melatonin 5 mg 05/08/20 21:00 05/08/20 20:19 Melatonin PO 5 mg HS KAYCE Administration Metformin HCl 500 mg 05/09/20 17:00 Glucophage PO BIDWM KAYCE Ondansetron HCl 4 mg 05/07/20 18:38 05/08/20 09:33 Zofran Inj IV PUSH 4 mg Q4H PRN Administration Nausea Polyethylene Glycol 17 gm 05/08/20 17:00 05/09/20 08:37 Miralax PO 17 gm BID KAYCE Administration Radiology Results: ITS Impressions Foot X-Ray 05/07/20 17:42 IMPRESSION: 1. Plantar soft tissue ulceration with soft tissue gas tracking proximally in the lateral foot and findings suggestive of osteomyelitis involving the heads of the fourth and fifth metatarsals and bases of the fourth and fifth proximal phalanges. Chest X-Ray 05/07/20 17:47 IMPRESSION: 1. No acute cardiopulmonary abnormality. Foot MRI 05/08/20 14:02 IMPRESSION: 1. No evidence of osteomyelitis. 2. Cellulitis of the foot. Soft tissue gas may be from the plantar ulcer. Necrotizing fasciitis cannot be excluded. Ankle Brachial Index 05/08/20 15:50 IMPRESSION: 1. Normal ankle-brachial indices.
[2020-05-09 15:03] VITALS: BP 112/76; PULSE 97; RESP 18; TEMP 36.8; O2SAT 94
[2020-05-09 16:03] VITALS: TEMP 37.9
[2020-05-09 16:31] VITALS: TEMP 37.9
[2020-05-09] MEDS: ACETAMINOPHEN 325 MG TABLET 650 MG PO (16:31)
[2020-05-09] MEDS: metFORMIN HCL 500 MG TABLET PO (16:32)
[2020-05-09 17:05] LABS: Glucose Point of Care 108 (65-105)
[2020-05-09 17:16] VITALS: TEMP 37.2
[2020-05-09] MEDS: ONDANSETRON INJ 4 MG/2 ML VIAL IV PUSH (17:53)
[2020-05-09] MEDS: MELATONIN 5 MG TABLET PO (20:00)
[2020-05-09 20:41] VITALS: BP 105/64; PULSE 99; RESP 16; TEMP 36.8; O2SAT 98
[2020-05-09 23:47] LABS: Glucose Point of Care 111 (65-105)
[2020-05-10 05:14] VITALS: BP 121/69; PULSE 97; RESP 16; TEMP 36.7; O2SAT 94
[2020-05-10] MEDS: INSULIN HUMAN ISOPHAN/REGULAR 70/30 (*BKC) 100 UNITS/ML 10 UNITS SUB-Q ×2 (05:34→16:57)
[2020-05-10 05:46] LABS: Basophils Absolute Auto 0.1 K/mm3 (0.0-0.1); Basophils Percent Auto 0.6 % (0.2-1.2); Eosinophils Percent Auto 0.3 % (0-4.4); Hematocrit 33.4 % (42.0-52.0); Hemoglobin 11.6 g/dL (14.0-18.0); Immature Granulocyte Absolute 0.14 K/mm3 (0.00-0.031); Lymphocytes Absolute Auto 0.89 K/mm3 (0.9-3.2); Lymphocytes Percent Auto 6.3 % (18.3-44.2); Mean Corpuscular HGB Conc 34.7 g/dl (32-36); Mean Corpuscular Hemoglobin 30.2 pg (26-34); Mean Platelet Volume 11.5 fl (7.4-10.4); Monocytes Percent Auto 6.7 % (2.6-8.5); Neutrophils Absolute Auto 12.1 K/mm3 (1.3-6.7); Neutrophils Percent Auto 85.1 % (45.5-73.1); Platelet Count Result 159 k/mm3 (150-375); Red Blood Count 3.84 M/mm3 (4.6-6.20); Red Cell Distribution Width 12.9 % (11.5-14.5); White Blood Count 14.2 K/mm3 (4.5-10.0)
[2020-05-10 06:02] LABS: Anion Gap 11 mmol/L (8-16); Blood Urea Nitrogen 17 mg/dL (9-20); Calcium 8.8 mg/dL (8.4-10.2); Carbon Dioxide 24 mmol/L (22-30); Chloride 97 mmol/L (98-107); Estimated CRCL calculation 68 ml/min; Estimated Glomerular Filt Rate > 60; Glucose 132 mg/dL (75-110); Magnesium 1.9 mg/dL (1.6-2.3); Potassium 4.2 mmol/L (3.4-5.0); Sodium 132 mmol/L (137-145)
[2020-05-10 08:06] LABS: Glucose Point of Care 178 (65-105)
[2020-05-10 08:17] LABS: Glucose Point of Care 120 (65-105)
[2020-05-10] MEDS: HYDROcodone/acetaminophen (*CRX) 5-325 MG TABLET 1 TAB PO ×2 (09:26→20:30)
[2020-05-10] MEDS: metFORMIN HCL 500 MG TABLET PO ×2 (09:26→16:56)
[2020-05-10] MEDS: calcium polycarbophiL 625 MG TABLET 1250 MG PO ×2 (09:26→16:56)
[2020-05-10] MEDS: FAMOTIDINE 20 MG/2 ML VIAL IV PUSH ×2 (09:27→20:30)
[2020-05-10] MEDS: GABAPENTIN 300 MG CAPSULE PO ×3 (09:27→16:56)
[2020-05-10] MEDS: ENOXAPARIN 40 MG/0.4 ML SYRINGE SUB-Q (09:27)
[2020-05-10] MEDS: polyethylene glycoL 3350 17 GM POWD.PACK PO ×2 (09:27→16:57)
--- NOTE | 2020-05-10 12:31 | PM.IMPN ---
Progress Note: A&P Assessment and Plan (1) Acute osteomyelitis of left foot: Code(s): M86.172 - Other acute osteomyelitis, left ankle and foot Status: Acute Assessment and Plan: Patient presents with diabetic wound to left plantar 4th and 5th metatarsals that began 3 months ago. Orthopedic surgery and infectious disease following - appreciate recommendations. Continue IV Zosyn today. Anticipate need for long-term antibiotics per Dr Moore's recommendations. Noted Dr Cotton's plan to monitor his progress over the weekend and keep his slot on the OR schedule for Tuesday in the event he does not make much improvement; may require debridement or resection of bone pending progress. (2) Sepsis: Qualifiers: Sepsis acute organ dysfunction status: unspecified Sepsis type: sepsis due to unspecified organism Qualified Code(s): A41.9 - Sepsis, unspecified organism Code(s): A41.9 - Sepsis, unspecified organism Status: Acute Assessment and Plan: Evident on arrival by leukocytosis, fever and tachycardia. Suspected source is skin, see above. Wound culture growing Group B Strep. Blood cultures are pending with no growth to date. Monitor vital signs and urine output. Continue IV Zosyn. (3) Uncontrolled diabetes mellitus: Qualifiers: Diabetes mellitus type: type 2 Glycemic state: with hyperglycemia Qualified Code(s): E11.65 - Type 2 diabetes mellitus with hyperglycemia Code(s): E11.65 - Type 2 diabetes mellitus with hyperglycemia Status: Acute Assessment and Plan: Patient is historically noncompliant, has not seen a doctor in years and quit taking diabetes medications 3 years ago. Hgb A1c is 8.9%. He has been started on metformin. Seen by DM educator today. Lantus will be too expensive for him. We have started Novolin 70/30 which he can get cheaper at [facility]. Blood sugars are better controlled today, not eating much though. Continue to monitor with Accu-Cheks and cover sliding scale insulin. (4) Chronic constipation: Code(s): K59.09 - Other constipation Status: Acute Assessment and Plan: Patient has been started on BID MiraLax and FiberCon. (5) Insomnia: Qualifiers: Insomnia type: unspecified Qualified Code(s): G47.00 - Insomnia, unspecified Code(s): G47.00 - Insomnia, unspecified Status: Acute Assessment and Plan: Melatonin. Subjective Date/time seen: 05/10/20 12:00 Interval history: Mr. Spann is a 64yo M with uncontrolled DM admitted for left foot diabetic ulcer. He is experiencing worse pain to left leg and foot today. He slept okay. Denies chest pain or shortness of breath. He is tolerating some oral intake nausea or vomiting but has a poor appetite, not eating very much. Review of Systems Review of Systems: Narrative: Twelve systems were reviewed with pertinent positives and negatives as per HPI. Exam Narrative: Exam Narrative: General: Male resting supine in bed in no acute distress. HEENT: Normocephalic, EOMI, oral mucosa moist. Cardiovascular: Rate and rhythm are regular. Respiratory: Lungs clear to auscultation all barrientos. Non-labored breathing. Abdomen: Soft, non-tender, non-distended, bowel sounds present. Extremities: Peripheral pulses intact. 1+ swelling to left lower extremity. Left foot: Wound to plantar aspect over 4th and 5th metatarsals, dorsum of foot over 4th and 5th metatarsals is erythematous and violaceous, left 4th toe is dusky purple, entire left foot is markedly edematous and painful to touch. Neuro: No focal neurological deficits. Speech is clear. Objective Data Vital Signs Vital Signs: Last Vital Signs Temp 97.7 F 05/10/20 14
[2020-05-10 12:35] LABS: Glucose Point of Care 176 (65-105)
[2020-05-10 14:00] VITALS: BP 116/74; PULSE 86; RESP 14; TEMP 36.5; O2SAT 97
[2020-05-10 16:32] LABS: Glucose Point of Care 149 (65-105)
[2020-05-10 17:49] LABS: SARS-CoV-2 RNA PCR Negative
[2020-05-10] MEDS: MELATONIN 5 MG TABLET PO (20:30)
[2020-05-10 20:51] VITALS: BP 128/70; PULSE 94; RESP 16; TEMP 37.4; O2SAT 100
[2020-05-11 01:26] LABS: Glucose Point of Care 144 (65-105)
[2020-05-11] MEDS: INSULIN HUMAN ISOPHAN/REGULAR 70/30 (*BKC) 100 UNITS/ML 10 UNITS SUB-Q (05:56)
[2020-05-11 06:00] VITALS: BP 124/77; PULSE 89; RESP 16; TEMP 37.3; O2SAT 96
[2020-05-11] MEDS: HYDROcodone/acetaminophen (*CRX) 5-325 MG TABLET 1 TAB PO ×4 (06:16→20:14)
[2020-05-11 06:26] LABS: Glucose Point of Care 127 (65-105)
[2020-05-11 06:35] LABS: Basophils Percent Auto 0.3 % (0.2-1.2); Eosinophils Absolute Auto 0.1 K/mm3 (0-0.3); Eosinophils Percent Auto 0.6 % (0-4.4); Hematocrit 32.5 % (42.0-52.0); Hemoglobin 11.5 g/dL (14.0-18.0); Immature Granulocyte Absolute 0.05 K/mm3 (0.00-0.031); Immature Granulocyte Percent A 0.5 % (0-0.5); Lymphocytes Absolute Auto 0.85 K/mm3 (0.9-3.2); Lymphocytes Percent Auto 8.4 % (18.3-44.2); Mean Corpuscular HGB Conc 35.4 g/dl (32-36); Mean Corpuscular Volume 84.9 fl (80-100); Mean Platelet Volume 10.8 fl (7.4-10.4); Monocytes Absolute Auto 0.9 K/mm3 (0.1-0.6); Monocytes Percent Auto 9.1 % (2.6-8.5); Neutrophils Absolute Auto 8.2 K/mm3 (1.3-6.7); Neutrophils Percent Auto 81.1 % (45.5-73.1); Platelet Count Result 187 k/mm3 (150-375); Red Blood Count 3.83 M/mm3 (4.6-6.20); White Blood Count 10.1 K/mm3 (4.5-10.0)
[2020-05-11 06:46] LABS: Anion Gap 9 mmol/L (8-16); Blood Urea Nitrogen 16 mg/dL (9-20); Carbon Dioxide 28 mmol/L (22-30); Chloride 96 mmol/L (98-107); Estimated CRCL calculation 84 ml/min; Estimated Glomerular Filt Rate > 60; Glucose 127 mg/dL (75-110); Magnesium 1.9 mg/dL (1.6-2.3); Potassium 3.7 mmol/L (3.4-5.0); Sodium 133 mmol/L (137-145)
[2020-05-11] MEDS: GABAPENTIN 300 MG CAPSULE PO ×3 (08:37→16:44)
[2020-05-11] MEDS: polyethylene glycoL 3350 17 GM POWD.PACK PO ×2 (08:37→16:45)
[2020-05-11] MEDS: calcium polycarbophiL 625 MG TABLET 1250 MG PO ×2 (08:37→16:44)
[2020-05-11] MEDS: metFORMIN HCL 500 MG TABLET PO ×2 (08:38→16:45)
[2020-05-11] MEDS: ENOXAPARIN 40 MG/0.4 ML SYRINGE SUB-Q (08:38)
[2020-05-11] MEDS: FAMOTIDINE 20 MG/2 ML VIAL IV PUSH ×2 (08:38→20:15)
--- NOTE | 2020-05-11 12:33 | PM.IMPN ---
Progress Note: A&P Assessment and Plan (1) Acute osteomyelitis of left foot: Code(s): M86.172 - Other acute osteomyelitis, left ankle and foot Status: Acute Assessment and Plan: Patient presents with diabetic wound to left plantar 4th and 5th metatarsals that began 3 months ago. Orthopedic surgery and infectious disease following - appreciate recommendations. Continue IV Zosyn today. Anticipate need for long-term antibiotics per Dr Moore's recommendations. Noted Dr Cotton's plan to monitor his progress over the weekend and keep his slot on the OR schedule for tomorrow in the event he does not make much improvement; may require debridement or resection of bone pending his progress. (2) Sepsis: Qualifiers: Sepsis acute organ dysfunction status: unspecified Sepsis type: sepsis due to unspecified organism Qualified Code(s): A41.9 - Sepsis, unspecified organism Code(s): A41.9 - Sepsis, unspecified organism Status: Acute Assessment and Plan: Evident on arrival by leukocytosis, fever and tachycardia. Suspected source is skin, see above. Wound culture growing Group B Strep. Blood cultures are pending with no growth to date. Monitor vital signs and urine output. Continue IV Zosyn. (3) Uncontrolled diabetes mellitus: Qualifiers: Diabetes mellitus type: type 2 Glycemic state: with hyperglycemia Qualified Code(s): E11.65 - Type 2 diabetes mellitus with hyperglycemia Code(s): E11.65 - Type 2 diabetes mellitus with hyperglycemia Status: Acute Assessment and Plan: Patient is historically noncompliant, has not seen a doctor in years and quit taking diabetes medications 3 years ago. Hgb A1c is 8.9%. He has been started on metformin. Seen by DM educator. Lantus will be too expensive for him. We have started Novolin 70/30 which he can get cheaper at [facility]. Blood sugars are better controlled now, not eating much though. Continue to monitor with Accu-Cheks and cover sliding scale insulin. (4) Chronic constipation: Code(s): K59.09 - Other constipation Status: Acute Assessment and Plan: Patient has been started on BID MiraLax and FiberCon. (5) Insomnia: Qualifiers: Insomnia type: unspecified Qualified Code(s): G47.00 - Insomnia, unspecified Code(s): G47.00 - Insomnia, unspecified Status: Acute Assessment and Plan: Melatonin. Subjective Date/time seen: 05/11/20 1045 Interval history: Mr. Spann is a 64yo M with uncontrolled DM admitted for left foot diabetic ulcer. No events overnight. L foot pain with movement. Sleeping a lot. Tolerated some breakfast this morning without nausea, vomiting, or abdominal pain. Poor appetite. Denies chest pain or shortness of breath. Review of Systems Review of Systems: Narrative: Twelve systems were reviewed with pertinent positives and negatives as per HPI. Exam Narrative: Exam Narrative: General: Male resting supine in bed in no acute distress. HEENT: Normocephalic, EOMI, oral mucosa moist. Cardiovascular: Rate and rhythm are regular. Respiratory: Lungs clear to auscultation all barrientos. Non-labored breathing. Abdomen: Soft, non-tender, non-distended, bowel sounds present. Extremities: Peripheral pulses intact. 1+ swelling to left lower extremity below the knee. Left foot: Wound to plantar aspect over 4th and 5th metatarsals, dorsum of foot over 4th and 5th metatarsals is erythematous and violaceous, left 4th toe is dusky purple, entire left foot is markedly edematous and painful to touch. Neuro: No focal neurological deficits. Speech is clear. Objective Data Vital Signs Vital Signs: Last Vital Signs Temp 99.1 F 05/11/20 06:00
--- NOTE | 2020-05-11 13:00 | PM.PNORT ---
Progress Note: A&P Additional Plan S/P LEFT FOOT ULCER AND TYPE 2 DM. WILL MOST LIKELY WILL REQUIRE DEBRIDEMENT. WILL DISCUSS WITH DR BETANCOURT. NPO AFTER 12 AM. Time Spent With Patient Time with patient: 15 - 25 minutes Subjective Subjective Date/Time Seen: 05/11/20 13:00 LEFT FOOT PLANTAR ULCER AND DORAL CELLULITIS. NO FEVER OR CHILLS. NO CALF PAIN Exam Extrem: Other: LEFT FOOT DORSAL ULCER WITH NO ERYTHEMA OR DRAINAGE. DORSUM OF FOOT WITH CELLULITIS AND BLISTERING. SEROUS DISCHARGE NOTICED. NO PURULENCE. 4TH DIGIT WITH SOME DISCOLORATION. SENSATION INTACT. DP 1+ Objective Data Vital Signs Vital Signs: Vital Signs - 24 hr 05/10/20 14:00 05/10/20 20:51 05/11/20 06:00 Temperature 36.5 C 37.4 C 37.3 C Pulse Rate 86 94 89 Respiratory Rate 14 16 16 Blood Pressure 116/74 128/70 124/77 Pulse Oximetry 97 100 96 Intake/Output Intake/Output: Intake & Output 05/08/20 05/09/20 05/10/20 05/11/20 23:59 23:59 23:59 23:59 Intake Total 2896 2920 1140 170 Output Total 925 875 650 350 Balance 1971 2045 490 -180 Meds/Results Medications: Active Medications Generic Name Dose Route Start Last Admin Trade Name Freq PRN Reason Stop Dose Admin Acetaminophen 650 mg 05/09/20 16:13 05/09/20 16:31 Tylenol Tablet PO 650 mg Q4H PRN Administration Mild Pain (1-3) or Fever Hydrocodone Bitart/Acetaminophen 1 tab 05/08/20 20:38 05/11/20 12:26 [place] 5-325 Mg PO 1 tab Q4H PRN Administration Pain Rated 4-6 Calcium Polycarbophil 1,250 mg 05/08/20 17:00 05/11/20 08:37 Fiber Con PO 1,250 mg BID KAYCE Administration Enoxaparin Sodium 40 mg 05/08/20 10:30 05/11/20 08:38 Lovenox SUB-Q 40 mg DAILY KAYCE Administration Famotidine 20 mg 05/07/20 21:00 05/11/20 08:38 Pepcid Iv IV PUSH 20 mg Q12HR KAYCE Administration Gabapentin 300 mg 05/08/20 13:00 05/11/20 12:22 Neurontin PO 300 mg TID KAYCE Administration Piperacillin/Tazobactam/Dextrose 3.375 gm in 50 mls @ 100 mls/hr 05/08/20 00:00 05/11/20 12:21 Zosyn 3.375 Gm/D5w 50ml Pm IVPB 100 mls/hr Q6HR KAYCE Administration Insulin Aspart 3 - 6 units 05/09/20 08:20 05/11/20 12:21 Novolog SUB-Q Not Given TIDWM [facility] Protocol Insulin Human Isoph/Insulin Regular 10 units 05/09/20 16:30 05/11/20 05:56 SUB-Q 10 units BIDAC KAYCE Administration Melatonin 5 mg 05/08/20 21:00 05/10/20 20:30 Melatonin PO 5 mg HS KAYCE Administration Metformin HCl 500 mg 05/09/20 17:00 05/11/20 08:38 Glucophage PO 500 mg BIDWM KAYCE Administration Ondansetron HCl 4 mg 05/07/20 18:38 05/09/20 17:53 Zofran Inj IV PUSH 4 mg Q4H PRN Administration Nausea Polyethylene Glycol 17 gm 05/08/20 17:00 05/11/20 08:37 Miralax PO 17 gm BID KAYCE Administration Radiology Results: ITS Impressions Foot X-Ray 05/07/20 17:42 IMPRESSION: 1. Plantar soft tissue ulceration with soft tissue gas tracking proximally in the lateral foot and findings suggestive of osteomyelitis involving the heads of the fourth and fifth metatarsals and bases of the fourth and fifth proximal phalanges. Chest X-Ray 05/07/20 17:47 IMPRESSION: 1. No acute cardiopulmonary abnormality. Foot MRI 05/08/20 14:02 IMPRESSION: 1. No evidence of osteomyelitis. 2. Cellulitis of the foot. Soft tissue gas may be from the plantar ulcer. Necrotizing fasciitis cannot be excluded. Ankle Brachial Index 05/08/20 15:50 IMPRESSION: 1. Normal ankle-brachial indices. Labs Labs: Laboratory Results - last 24 hr 05/10/20 05/10/20 05/10/20 09:38 16:23 20:35 WBC RBC Hgb Hct MCV MCH MCHC RDW Plt Count MPV Immature Gran % (Auto) Neut % (Auto) Lymph % (Auto) Christian % (Auto) Eos % (Auto) Baso % (Auto) Lymph # (Auto) Christian # (Auto) Eos # (Auto) Baso # (Auto) Abs Immat Gran (auto) Absolute Neuts (auto) Absolute Nu
[2020-05-11 14:00] VITALS: BP 126/75; PULSE 79; RESP 18; TEMP 37.2; O2SAT 97
[2020-05-11 14:08] LABS: Glucose Point of Care 178 (65-105)
[2020-05-11 17:18] LABS: Glucose Point of Care 115 (65-105)
[2020-05-11 19:32] VITALS: BP 137/78; PULSE 90; RESP 16; TEMP 37.5; O2SAT 98
[2020-05-11 22:19] LABS: Glucose Point of Care 191 (65-105)
[2020-05-11] MEDS: MELATONIN 5 MG TABLET PO (22:57)
[2020-05-11] MEDS: MORPHINE SULFATE (*CRX) 2 MG/ML INJ IV PUSH (22:58)
[2020-05-12] VITALS (13 sets, daily range): BP systolic 101–144; BP diastolic 56–77; PULSE 70–91; RESP 15–20; TEMP 35.8–37.4; O2SAT 91–100
[2020-05-12] MEDS: MORPHINE SULFATE (*CRX) 2 MG/ML INJ IV PUSH (05:28)
[2020-05-12 06:03] LABS: Glucose Point of Care 173 (65-105)
[2020-05-12 06:03] LABS: Basophils Absolute Auto 0.1 K/mm3 (0.0-0.1); Basophils Percent Auto 0.5 % (0.2-1.2); Eosinophils Absolute Auto 0.1 K/mm3 (0-0.3); Eosinophils Percent Auto 0.9 % (0-4.4); Hematocrit 34.9 % (42.0-52.0); Hemoglobin 11.9 g/dL (14.0-18.0); Immature Granulocyte Absolute 0.07 K/mm3 (0.00-0.031); Immature Granulocyte Percent A 0.7 % (0-0.5); Lymphocytes Percent Auto 11.3 % (18.3-44.2); Mean Corpuscular HGB Conc 34.1 g/dl (32-36); Mean Corpuscular Hemoglobin 29.5 pg (26-34); Mean Corpuscular Volume 86.6 fl (80-100); Mean Platelet Volume 10.9 fl (7.4-10.4); Monocytes Absolute Auto 1.3 K/mm3 (0.1-0.6); Monocytes Percent Auto 12.4 % (2.6-8.5); Neutrophils Absolute Auto 7.9 K/mm3 (1.3-6.7); Neutrophils Percent Auto 74.2 % (45.5-73.1); Platelet Count Result 201 k/mm3 (150-375); Red Blood Count 4.03 M/mm3 (4.6-6.20); Red Cell Distribution Width 13.2 % (11.5-14.5); White Blood Count 10.6 K/mm3 (4.5-10.0)
[2020-05-12 06:17] LABS: Alanine Aminotransferase 20 U/L (4-50); Albumin Level 2.9 g/dL (3.5-5.1); Alkaline Phosphatase 131 U/L (38-126); Anion Gap 8 mmol/L (8-16); Aspartate Amino Transferase 29 U/L (17-59); Bilirubin,Total 0.7 mg/dL (0.2-1.3); Blood Urea Nitrogen 12 mg/dL (9-20); Carbon Dioxide 31 mmol/L (22-30); Chloride 93 mmol/L (98-107); Estimated CRCL calculation 75 ml/min; Estimated Glomerular Filt Rate > 60; Glucose 179 mg/dL (75-110); Magnesium 1.9 mg/dL (1.6-2.3); Potassium 3.9 mmol/L (3.4-5.0); Sodium 132 mmol/L (137-145)
--- NOTE | 2020-05-12 07:19 | WPDHPUPDATE1 ---
History and Physical Update Update Date/Time: 05/12/20 07:19 History and Physical has been reviewed, including an updated exam of the patient. There are NO changes in the patient's condition. COVID test negative. Risks, benefits, and alternatives have been discussed and questions answered. Patient agrees to proceed with procedure. Plan: Debridement left diabetic foot ulcer, excision osteomyelitis.
--- NOTE | 2020-05-12 08:08 | PM.IMPN ---
Progress Note: A&P Assessment and Plan (1) Acute osteomyelitis of left foot: Code(s): M86.172 - Other acute osteomyelitis, left ankle and foot Status: Acute Assessment and Plan: Patient presents with diabetic wound to left plantar 4th and 5th metatarsals that began 3 months ago. Orthopedic surgery and infectious disease following - appreciate recommendations. Continue IV Zosyn today. Anticipate need for long-term antibiotics per Dr Moore's recommendations. Noted Dr Cotton's plan for OR today for likely debridement of this wound. (2) Sepsis: Qualifiers: Sepsis acute organ dysfunction status: unspecified Sepsis type: sepsis due to unspecified organism Qualified Code(s): A41.9 - Sepsis, unspecified organism Code(s): A41.9 - Sepsis, unspecified organism Status: Acute Assessment and Plan: Evident on arrival by leukocytosis, fever and tachycardia. Suspected source is skin, see above. Wound culture growing Group B Strep. Blood cultures are pending with no growth to date. Monitor vital signs and urine output. Continue IV Zosyn. (3) Uncontrolled diabetes mellitus: Qualifiers: Diabetes mellitus type: type 2 Glycemic state: with hyperglycemia Qualified Code(s): E11.65 - Type 2 diabetes mellitus with hyperglycemia Code(s): E11.65 - Type 2 diabetes mellitus with hyperglycemia Status: Acute Assessment and Plan: Patient is historically noncompliant, has not seen a doctor in years and quit taking diabetes medications 3 years ago. Hgb A1c is 8.9%. He has been started on metformin. Seen by DM educator. Lantus will be too expensive for him. We have started Novolin 70/30 which he can get cheaper at [facility]. Blood sugars are better controlled now. Continue to monitor with Accu-Cheks, will hold off on SSI for now since he is not eating much. (4) Chronic constipation: Code(s): K59.09 - Other constipation Status: Acute Assessment and Plan: Patient has been started on BID MiraLax and FiberCon. (5) Insomnia: Qualifiers: Insomnia type: unspecified Qualified Code(s): G47.00 - Insomnia, unspecified Code(s): G47.00 - Insomnia, unspecified Status: Acute Assessment and Plan: Melatonin. Subjective Date/time seen: 05/12/20 08:00 Interval history: Mr. Spann is a 64yo M with uncontrolled DM admitted for left foot diabetic ulcer. No events overnight. L foot pain with movement. He is seen in follow up just prior to going to the OR with Dr Cotton this morning. He feels nervous but otherwise offers no complaints. Denies chest pain, shortness of breath, nausea, or vomiting. Review of Systems Review of Systems: Narrative: Twelve systems were reviewed with pertinent positives and negatives as per HPI. Exam Narrative: Exam Narrative: General: Male resting sitting up on edge of bed in no acute distress. HEENT: Normocephalic, EOMI, oral mucosa moist. Cardiovascular: Rate and rhythm are regular. Respiratory: Lungs clear to auscultation all barrientos. Non-labored breathing. Abdomen: Soft, non-tender, non-distended, bowel sounds present. Extremities: Peripheral pulses intact. 1+ swelling to left lower extremity below the knee. Left foot: Wound to plantar aspect over 4th and 5th metatarsals, dorsum of foot over 4th and 5th metatarsals is erythematous and violaceous draining serous fluid, left 4th toe is dusky purple, entire left foot is markedly edematous and painful to touch. Neuro: No focal neurological deficits. Speech is clear. Objective Data Vital Signs Vital Signs: Last Vital Signs Temp 96.8 F L 05/12/20 13:10 Pulse 70 05/12/20 13:10 Resp 18 05/12/20 13:10 BP 142/72 H 05/12/20
--- NOTE | 2020-05-12 08:24 | WPDANESEPPF ---
Anes - Initial Pre Proc Eval Procedure: Operation Date: 05/12/20 09:30 Proposed Procedures p Excision Osteomyelitis Left Foot, Debridement Left Diabetic Foot Ulcer(Left) - Liam Cotton MD Date/Time: 05/12/20 08:24 Surgeon: SARABJIT Fernandez Pre Op Diagnosis: left foot wound Patient Data Age: 64 Gender: M Height: 5 ft 10 in Weight: 94.2 kg Last Vital Signs Temp 36.6 C 05/12/20 05:36 Pulse 91 05/12/20 05:36 Resp 20 05/12/20 05:36 BP 127/72 05/12/20 05:36 Pulse Ox 98 05/12/20 05:36 Allergies Allergy/AdvReac Type Severity Reaction Status Date / Time Dust Allergy Mild Uncoded 10/31/17 11:40 Home Medications Medication Instructions Recorded Confirmed Type No Home Medications 05/08/20 05/08/20 History Laboratory Tests 05/11/20 05/11/20 05/11/20 12:20 16:38 22:16 WBC RBC Hgb Hct MCV MCH MCHC RDW Plt Count MPV Immature Gran % (Auto) Neut % (Auto) Lymph % (Auto) [place] % (Auto) Eos % (Auto) Baso % (Auto) Lymph # (Auto) [place] # (Auto) Eos # (Auto) Baso # (Auto) Abs Immat Gran (auto) Absolute Neuts (auto) Absolute Nucleated RBC Nucleated RBC % Sodium Potassium Chloride Carbon Dioxide Anion Gap BUN Creatinine Estim Creat Clear Calc Estimated GFR Glucose POC Capillary Glucose 178 mg/dl H mg/dl 115 mg/dl H mg/dl 191 mg/dl H mg/dl (65-105) (65-105) (65-105) Calcium Magnesium Total Bilirubin AST ALT Alkaline Phosphatase Total Protein Albumin 05/12/20 05/12/20 05/12/20 05:12 05:12 05:35 WBC 10.6 K/mm3 H K/mm3 (4.5-10.0) RBC 4.03 M/mm3 L M/mm3 (4.6-6.20) Hgb 11.9 g/dL L g/dL (14.0-18.0) Hct 34.9 % L % (42.0-52.0) MCV 86.6 fl fl (80-100) MCH 29.5 pg pg (26-34) MCHC 34.1 g/dl g/dl (32-36) RDW 13.2 % % (11.5-14.5) Plt Count 201 k/mm3 k/mm3 (150-375) MPV 10.9 fl H fl (7.4-10.4) Immature Gran % (Auto) 0.7 % H % (0-0.5) Neut % (Auto) 74.2 % H % (45.5-73.1) Lymph % (Auto) 11.3 % L % (18.3-44.2) Divide % (Auto) 12.4 % H % (2.6-8.5) Eos % (Auto) 0.9 % % (0-4.4) Baso % (Auto) 0.5 % % (0.2-1.2) Lymph # (Auto) 1.20 K/mm3 K/mm3 (0.9-3.2) Divide # (Auto) 1.3 K/mm3 H K/mm3 (0.1-0.6) Eos # (Auto) 0.1 K/mm3 K/mm3 (0-0.3) Baso # (Auto) 0.1 K/mm3 K/mm3 (0.0-0.1) Abs Immat Gran (auto) 0.07 K/mm3 H K/mm3 (0.00-0.031) Absolute Neuts (auto) 7.9 K/mm3 H K/mm3 (1.3-6.7) Absolute Nucleated RBC 0.0 K/mm3 K/mm3 (0.0-0.012) Nucleated RBC % 0.0 % % (0.0-0.2) Sodium 132 mmol/L L mmol/L (137-145) Potassium 3.9 mmol/L mmol/L (3.4-5.0) Chloride 93 mmol/L L mmol/L (98-107) Carbon Dioxide 31 mmol/L H mmol/L (22-30) Anion Gap 8 mmol/L mmol/L (8-16) BUN 12 mg/dL mg/dL (9-20) Creatinine 0.90 mg/dL mg/dL (0.7-1.3) Estim Creat Clear Calc 75 ml/min ml/min Estimated GFR > 60 (59 - ) Glucose 179 mg/dL H mg/dL (75-110) POC Capillary Glucose 173 mg/dl H mg/dl (65-105) Calcium 8.0 mg/dL L mg/dL (8.4-10.2) Magnesium 1.9 mg/dL mg/dL (1.6-2.3) Total Bilirubin 0.7 mg/dL mg/dL (0.2-1.3) AST 29 U/L U/L (17-59) ALT 20 U/L U/L (4-50) Alkaline
[2020-05-12] MEDS: LACTATED RINGERS 1,000 ML 30 ML IV CONT (08:25)
[2020-05-12] MEDS: MORPHINE SULFATE INJ (*CRX) 10 MG/ML AMP 2 MG IV PUSH (08:32)
--- NOTE | 2020-05-12 08:49 | SUR.PREOP ---
[id number] GREBING HERE TO SEE PATIENT, DRESSING REMOVED AND REPLACE BY DR. BETANCOURT
--- NOTE | 2020-05-12 10:13 | PM.PROC ---
Procedure Note - Detailed Date of procedure: 05/12/20 Pre-op diagnosis: left foot wound Left diabetic foot ulcer, cellulitis Post-op diagnosis: other ( left diabetic foot ulcer with dorsal necrotizing fasciitis) Procedure performed: incision and debridement of necrotizing fasciitis left foot. Debridement left diabetic foot ulcer Description of procedure: Indications: Patient is a 64-year-old gentleman with uncontrolled diabetes and peripheral neuropathy as well as mild arterial disease of the lower extremities who was admitted with diabetic foot ulcer and left foot cellulitis. Culture from the diabetic foot ulcer positive for group B strep pansensitive to antibiotic. Patient has been on intravenous Zosyn since admission. MRI of the left foot showed soft tissue infection and cellulitis but no osteomyelitis. Left foot noted to have increased swelling and necrotic appearing skin as well as discoloration of the 4th toe. Patient brought to the operating room for debridement of suspected worsening infection left foot. What was done: Patient identified in the preoperative holding. Informed consent given. Operative extremity marked. Patient receiving intravenous antibiotics. Patient brought to the operating room where underwent general anesthetic by anesthesia team. Positioned supine on operating room table. Time-out performed confirming the patient, site of the surgery and the plan. Left foot prepped and draped usual sterile surgical fashion using Betadine prep solution. Dorsal longitudinal incision was made from the base of the 4th toe proximally along the 4th ray. Purulent drainage noted in the subdermal area. Necrotic fascia deep to this extending over the medial and lateral mid and forefoot. Fifteen blade knife used to sharply excise the necrotic fascia and tissue. Extensor tendons to the 4th and 5th toes were also involved and sharply excised. Debridement was followed into the 4th and 5th intermetatarsal space where the intermetatarsal ligament and tissue were necrotic. This was all sharply excised. Any loose tissue was removed with a rongeur. the skin was noted to be dusky but did not appear infected. Was decided to leave the skin as a soft tissue covering. The wound was thoroughly irrigated with antibiotic solution. Vancomycin powder was spread over the soft tissue and wound was packed with a Betadine-soaked gauze. Plantar diabetic foot ulcer beneath the 4th metatarsal head measured approximately 1 cm x 1 cm. Fifteen blade knife was used to sharply excise skin, subcutaneous tissue, muscle from the ulcer area. This was noted to communicate with the intermetatarsal space. Any remaining necrotic tissue was sharply excised. Wound was thoroughly irrigated with antibiotic solution and vancomycin powder was packed into the soft tissue. Incision was then closed with 0 Prolene interrupted suture. Local anesthetic, 0.5% Marcaine plain injected into the ankle area. Sterile dressing applied. The patient was then woken from anesthesia, extubated and taken to the recovery room in stable condition. All sponge, needle, instrument counts were correct at the end of the case. Implants: None Anesthesia: GLMA Surgeon: Liam Cotton MD Business Banking Representative: 1st licensed nursing assistant Estimated blood loss (mL): 50 Tourniquet time (min): 0 Drains: No Packing: Yes ( Betadine gauze packing to the dorsal foot wound) Pathology: other ( deep fascial culture of purulence material) Complications: No immediate complications Condition: critical Disposition: PACU Findings: necrotic tissue along the fascial planes dorsal foot extending to the transverse tarsal level from the 4th ray. Extending laterally around the 5th metatarsal. Extending medially across the dorsum of the 2nd metatarsal neck. Cloudy nichole purulent discharge fluid consistent with necrotizing fasciitis. Dorsal infection tracking to the 4 to 5 intermetatarsal space communicating with the plantar foot ulcer. Necrotic tissue
[2020-05-12 10:19] LABS: Glucose Point of Care 181 (65-105)
--- NOTE | 2020-05-12 11:18 | PC.NURSE ---
Pt returned from OR.
[2020-05-12] MEDS: polyethylene glycoL 3350 17 GM POWD.PACK PO (11:32)
[2020-05-12] MEDS: calcium polycarbophiL 625 MG TABLET 1250 MG PO ×2 (11:32→17:14)
[2020-05-12] MEDS: metFORMIN HCL 500 MG TABLET PO ×2 (11:32→17:14)
[2020-05-12] MEDS: FAMOTIDINE 20 MG/2 ML VIAL IV PUSH ×2 (11:33→20:08)
[2020-05-12] MEDS: HYDROcodone/acetaminophen (*CRX) 5-325 MG TABLET 1 TAB PO ×2 (11:40→18:08)
[2020-05-12] MEDS: KCL 20MEQ/0.9% SOD CHL 1,000 ML 80 ML IV CONT (12:10)
[2020-05-12] MEDS: ENOXAPARIN 40 MG/0.4 ML SYRINGE SUB-Q (12:13)
[2020-05-12] MEDS: GABAPENTIN 300 MG CAPSULE PO ×2 (12:13→17:14)
[2020-05-12] MEDS: ONDANSETRON INJ 4 MG/2 ML VIAL IV PUSH (12:28)
[2020-05-12 13:28] LABS: Glucose Point of Care 205 (65-105)
--- NOTE | 2020-05-12 14:14 | WPDINFPN2 ---
Progress Note: A&P Assessment and Plan (1) Acute osteomyelitis of left foot: Code(s): M86.172 - Other acute osteomyelitis, left ankle and foot Status: Acute Assessment and Plan: 1. Acute OM of L 4th and 5th MTs clinically, although MRI more suggestive of severe soft tissue infection. 2. Necrotizing fasciitis of foot, POD # 0 3. DM, poor control. 3. ASPVD, with borderline normal ROSIE on left. REC PipTazo #5, continue. He has no financial coverage for IV or oral antibiotics as an outpatient. Thus will plan on short term IV therapy here, followed by a relatively inexpensive med such as Augmentin after discharge. Glycemic control. Subjective Date/time seen: 05/12/20 14:14 Interval history: no complaints Exam Narrative: Exam Narrative: afebrile Const: General: no acute distress Eyes: General: appearance normal, both eyes and all related structures Resp: Effort & Inspection: normal respiratory effort Auscultation: clear to auscultation bilaterally Cardio: Rate: regular rate Rhythm: regular rhythm Heart sounds: no gallops and no murmurs GI: Inspection: non-distended GI Palp: Yes Soft to palpation and No Tenderness to palpation present (GI) Skin: General skin exam: no rashes or lesions noted Other: cyanotic L 4th toe, OR dressing not removed Objective Data Vital Signs Vital Signs: Vital Signs - 24 hr 05/11/20 19:32 05/12/20 05:36 05/12/20 08:28 Temperature 37.5 C 36.6 C 37.4 C Pulse Rate 90 91 79 Respiratory Rate 16 20 18 Blood Pressure 137/78 127/72 132/73 Pulse Oximetry 98 98 98 05/12/20 10:01 05/12/20 10:10 05/12/20 10:15 Temperature 36.8 C Pulse Rate 82 82 78 Respiratory Rate 16 18 15 Blood Pressure 105/67 101/68 111/70 Pulse Oximetry 95 97 99 05/12/20 10:30 05/12/20 10:45 05/12/20 10:55 Temperature Pulse Rate 79 77 76 Respiratory Rate 16 16 16 Blood Pressure 121/69 110/70 117/70 Pulse Oximetry 91 98 99 05/12/20 11:25 05/12/20 11:40 05/12/20 12:10 Temperature 36.3 C L 35.8 C L 36.0 C L Pulse Rate 73 71 72 Respiratory Rate 16 18 18 Blood Pressure 141/68 H 144/71 H 143/77 H Pulse Oximetry 96 100 100 05/12/20 13:10 Temperature 36.0 C L Pulse Rate 70 Respiratory Rate 18 Blood Pressure 142/72 H Pulse Oximetry 98 Intake/Output Intake/Output: Intake & Output 05/09/20 05/10/20 05/11/20 05/12/20 23:59 23:59 23:59 23:59 Intake Total 2920 1140 840 300 Output Total 875 650 851 900 Balance 5808 156 -65 -730 Meds/Results Medications: Active Medications Generic Name Dose Route Start Last Admin Trade Name Freq PRN Reason Stop Dose Admin Acetaminophen 650 mg 05/09/20 16:13 05/09/20 16:31 Tylenol Tablet PO 650 mg Q4H PRN Administration Mild Pain (1-3) or Fever Hydrocodone Bitart/Acetaminophen 1 tab 05/08/20 20:38 05/12/20 11:40 [place] 5-325 Mg PO 1 tab Q4H PRN Administration Pain Rated 4-6 Calcium Polycarbophil 1,250 mg 05/08/20 17:00 05/12/20 11:32 Fiber Con PO 1,250 mg BID KAYCE Administration Docusate Sodium 100 mg 05/12/20 17:00 Colace Capsule PO BID KAYCE Enoxaparin Sodium 40 mg 05/08/20 10:30 05/12/20 12:13 Lovenox SUB-Q 40 mg DAILY KAYCE Administration Famotidine 20 mg 05/07/20 21:00 05/12/20 11:33 Pepcid Iv IV PUSH 20 mg Q12HR KAYCE Administration Gabapentin 300 mg 05/08/20 13:00 05/12/20 12:13 Neurontin PO 300 mg TID KAYCE Administration Piperacillin/Tazobactam/Dextrose 3.375 gm in 50 mls @ 100 mls/hr 05/08/20 00:00 05/12/20 11:57 Zosyn 3.375 Gm/D5w 50ml Pm IVPB Infused Q6HR KAYCE Infusion Potassium Chloride/Sodium Chloride 1,000 mls @ 80 mls/hr 05/12/20 12:00 05/12/20 12:10 Kcl 20 Meq/Ns IV CONT 80 mls/hr .[id number] KAYCE Administration Insulin Human Isoph/Insulin Regular 10 units 05/09/20 16:30 05/11/20 16:41 SUB-Q Not Given BIDAC [facility] Magnesium Hydroxide 30 ml 05/12/20 10:59 Milk Of Magnesia PO BID PRN Constipation
[2020-05-12 17:07] LABS: Glucose Point of Care 187 (65-105)
[2020-05-12] MEDS: INSULIN HUMAN ISOPHAN/REGULAR 70/30 (*BKC) 100 UNITS/ML 10 UNITS SUB-Q (17:14)
[2020-05-12] MEDS: MELATONIN 5 MG TABLET PO (20:08)
[2020-05-12 21:00] LABS: Glucose Point of Care 203 (65-105)
[2020-05-13 01:38] VITALS: BP 133/71; PULSE 71; RESP 16; TEMP 36.1; O2SAT 99
[2020-05-13 04:29] VITALS: BP 122/66; PULSE 69; RESP 16; TEMP 36.7; O2SAT 98
[2020-05-13] MEDS: MORPHINE SULFATE (*CRX) 2 MG/ML INJ IV PUSH ×3 (04:40→15:39)
[2020-05-13 05:41] LABS: Basophils Percent Auto 0.3 % (0.2-1.2); Eosinophils Absolute Auto 0.1 K/mm3 (0-0.3); Eosinophils Percent Auto 0.5 % (0-4.4); Hematocrit 39.9 % (42.0-52.0); Hemoglobin 13.5 g/dL (14.0-18.0); Immature Granulocyte Absolute 0.09 K/mm3 (0.00-0.031); Immature Granulocyte Percent A 0.9 % (0-0.5); Lymphocytes Absolute Auto 1.32 K/mm3 (0.9-3.2); Lymphocytes Percent Auto 13.1 % (18.3-44.2); Mean Corpuscular HGB Conc 33.8 g/dl (32-36); Mean Corpuscular Hemoglobin 29.9 pg (26-34); Mean Corpuscular Volume 88.5 fl (80-100); Mean Platelet Volume 10.8 fl (7.4-10.4); Monocytes Percent Auto 9.6 % (2.6-8.5); Neutrophils Absolute Auto 7.6 K/mm3 (1.3-6.7); Neutrophils Percent Auto 75.6 % (45.5-73.1); Platelet Count Result 224 k/mm3 (150-375); Red Blood Count 4.51 M/mm3 (4.6-6.20)
[2020-05-13 05:53] LABS: Anion Gap 5 mmol/L (8-16); Blood Urea Nitrogen 15 mg/dL (9-20); Calcium 8.7 mg/dL (8.4-10.2); Carbon Dioxide 32 mmol/L (22-30); Chloride 97 mmol/L (98-107); Estimated CRCL calculation 75 ml/min; Estimated Glomerular Filt Rate > 60; Glucose 191 mg/dL (75-110); Magnesium 2.2 mg/dL (1.6-2.3); Potassium 4.1 mmol/L (3.4-5.0); Sodium 134 mmol/L (137-145)
[2020-05-13] MEDS: INSULIN HUMAN ISOPHAN/REGULAR 70/30 (*BKC) 100 UNITS/ML 10 UNITS SUB-Q ×2 (06:04→17:45)
[2020-05-13 08:06] LABS: Glucose Point of Care 176 (65-105)
--- NOTE | 2020-05-13 08:21 | PM.PNORT ---
Progress Note: A&P Assessment and Plan (1) Necrotizing fasciitis of ankle and foot: Code(s): M72.6 - Necrotizing fasciitis Status: Acute Assessment and Plan: postop day 1 left foot debridement from necrotizing fasciitis. Discussed operative findings with the patient and concern for loss of limb. Intraoperative cultures pending. Dressing changed today with plan for wound VAC dressing to the left foot. Will hopefully allow foot and wound bed to stabilize and granulate. Will most likely need further debridement of any non viable skin and most likely 4th toe or 4th ray. Will need soft tissue reconstruction once stable. 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: Qualifiers: Diabetic foot ulcer location: other Laterality: left Non-pressure ulcer stage: with necrosis of muscle Qualified Code(s): E08.621 - Diabetes mellitus due to underlying condition with foot ulcer; L97.523 - Non-pressure chronic ulcer of other part of left foot with necrosis of muscle Code(s): E08.621 - Diabetes mellitus due to underlying condition with foot ulcer; L97.509 - Non-pressure chronic ulcer of other part of unspecified foot with unspecified severity Status: Acute (3) Cellulitis of left foot: Code(s): L03.116 - Cellulitis of left lower limb Status: Acute Subjective Subjective Date/Time Seen: 05/13/20 08:21 Patient awake and alert. Mild left foot pain. Denies fever or chills, nausea or vomiting. Eating breakfast. Exam Const: General: healthy appearing; No in distress or confusion Orientation/consciousness: patient oriented x3 and No confusion HENMT: Head: normal to inspection, normocephalic and atraumatic Eyes: Conjunctivae: conjunctivae normal Sclera: sclerae normal Resp: Effort & Inspection: normal respiratory effort and no audible wheezes Neuro: General: patient oriented x3 and No confusion Extrem: Other: He left foot dressing saturated with Betadine/ serosanguineous drainage. Hallux, 2nd, 3rd and 5th toes with good capillary refill. Fourth toe dusky with sluggish to absent refill. No extension of erythema, ecchymosis or skin changes above the ankle. Leg and knee benign. Psych: Affect: normal affect Objective Data Vital Signs Vital Signs: Vital Signs - 24 hr 05/12/20 08:28 05/12/20 10:01 05/12/20 10:10 Temperature 99.4 F 98.3 F Pulse Rate 79 82 82 Respiratory Rate 18 16 18 Blood Pressure 132/73 105/67 101/68 Pulse Oximetry 98 95 97 05/12/20 10:15 05/12/20 10:30 05/12/20 10:45 Temperature Pulse Rate 78 79 77 Respiratory Rate 15 16 16 Blood Pressure 111/70 121/69 110/70 Pulse Oximetry 99 91 98 05/12/20 10:55 05/12/20 11:25 05/12/20 11:40 Temperature 97.3 F L 96.5 F L Pulse Rate 76 73 71 Respiratory Rate 16 16 18 Blood Pressure 117/70 141/68 H 144/71 H Pulse Oximetry 99 96 100 05/12/20 12:10 05/12/20 13:10 05/12/20 19:26 Temperature 96.8 F L 96.8 F L 97.5 F L Pulse Rate 72 70 77 Respiratory Rate 18 18 16 Blood Pressure 143/77 H 142/72 H 120/56 L Pulse Oximetry 100 98 99 05/13/20 01:38 05/13/20 04:29 Temperature 97 F L 98.1 F Pulse Rate 71 69 Respiratory Rate 16 16 Blood Pressure 133/71 122/66 Pulse Oximetry 99 98 Intake/Output Intake/Output: Intake & Output 05/10/20 05/11/20 05/12/20 05/13/20 23:59 23:59 23:59 23:59 Intake Total 7535 654 2019 550 Output Total 409 362 4217 1300 Balance 512 -52 -275 -336 Meds/Results Medications: Active Medications Generic Name Dose Route Start Last Admin Trade Name Freq PRN Reason Stop Dose Admin Acetaminophen 650 mg 05/09/20 16:13 05/09/20 16:31 Tylenol Tablet PO 650 mg Q4H PRN Administration Mild Pain (1-3) or Fever Hydrocodone Bitart/Acetaminophen 1 tab 05/08/20 20:38 05/12/20 18:08 [place] 5-325 Mg PO 1 tab Q4H PRN Administration Pain Rated 4-6 Calcium Polycarbophil 1,250 mg 05/08/20 17:00 05/12
[2020-05-13] MEDS: calcium polycarbophiL 625 MG TABLET 1250 MG PO ×2 (08:24→17:44)
[2020-05-13] MEDS: ENOXAPARIN 40 MG/0.4 ML SYRINGE SUB-Q (08:24)
[2020-05-13] MEDS: metFORMIN HCL 500 MG TABLET PO ×2 (08:24→17:44)
[2020-05-13] MEDS: GABAPENTIN 300 MG CAPSULE PO ×3 (08:24→17:44)
[2020-05-13] MEDS: FAMOTIDINE 20 MG/2 ML VIAL IV PUSH ×2 (08:25→20:52)
[2020-05-13 09:16] VITALS: BP 134/73; PULSE 83; RESP 18; TEMP 36.4; O2SAT 99
--- NOTE | 2020-05-13 12:46 | WPDINFPN2 ---
Progress Note: A&P Assessment and Plan (1) Acute osteomyelitis of left foot: Code(s): M86.172 - Other acute osteomyelitis, left ankle and foot Status: Acute Assessment and Plan: 1. Acute OM of L 4th and 5th MTs clinically, though not by operative findings. 2. Necrotizing fasciitis of foot, POD # 1. Preop wound culture noted. 3. DM, poor control. 3. ASPVD, with borderline normal ROSIE on left. REC PipTazo #6, continue. Recheck CRp to help define length of IV therapy Subjective Date/time seen: 05/13/20 12:46 Interval history: no complaints Exam Narrative: Exam Narrative: afebrile Const: General: no acute distress Resp: Auscultation: clear to auscultation bilaterally Extrem: Other: foot dressed, erythema over baker is less marked Objective Data Vital Signs Vital Signs: Vital Signs - 24 hr 05/12/20 13:10 05/12/20 19:26 05/13/20 01:38 Temperature 36.0 C L 36.4 C L 36.1 C L Pulse Rate 70 77 71 Respiratory Rate 18 16 16 Blood Pressure 142/72 H 120/56 L 133/71 Pulse Oximetry 98 99 99 05/13/20 04:29 05/13/20 09:16 Temperature 36.7 C 36.4 C L Pulse Rate 69 83 Respiratory Rate 16 18 Blood Pressure 122/66 134/73 Pulse Oximetry 98 99 Intake/Output Intake/Output: Intake & Output 05/10/20 05/11/20 05/12/20 05/13/20 23:59 23:59 23:59 23:59 Intake Total 9708 272 5918 830 Output Total 638 238 2239 2300 Balance 949 -11 -653 -6099 Meds/Results Medications: Active Medications Generic Name Dose Route Start Last Admin Trade Name Freq PRN Reason Stop Dose Admin Acetaminophen 650 mg 05/09/20 16:13 05/09/20 16:31 Tylenol Tablet PO 650 mg Q4H PRN Administration Mild Pain (1-3) or Fever Hydrocodone Bitart/Acetaminophen 1 tab 05/08/20 20:38 05/12/20 18:08 [place] 5-325 Mg PO 1 tab Q4H PRN Administration Pain Rated 4-6 Calcium Polycarbophil 1,250 mg 05/08/20 17:00 05/13/20 08:24 Fiber Con PO 1,250 mg BID KAYCE Administration Docusate Sodium 100 mg 05/13/20 11:25 Colace Capsule PO BID PRN Constipation Enoxaparin Sodium 40 mg 05/08/20 10:30 05/13/20 08:24 Lovenox SUB-Q 40 mg DAILY KAYCE Administration Famotidine 20 mg 05/07/20 21:00 05/13/20 08:25 Pepcid Iv IV PUSH 20 mg Q12HR KAYCE Administration Gabapentin 300 mg 05/08/20 13:00 05/13/20 12:32 Neurontin PO 300 mg TID KAYCE Administration Piperacillin/Tazobactam/Dextrose 3.375 gm in 50 mls @ 100 mls/hr 05/08/20 00:00 05/13/20 12:13 Zosyn 3.375 Gm/D5w 50ml Pm IVPB Infused Q6HR KAYCE Infusion Insulin Human Isoph/Insulin Regular 10 units 05/09/20 16:30 05/13/20 06:04 SUB-Q 10 units BIDAC KAYCE Administration Magnesium Hydroxide 30 ml 05/12/20 10:59 Milk Of Magnesia PO BID PRN Constipation Melatonin 5 mg 05/08/20 21:00 05/12/20 20:08 Melatonin PO 5 mg HS KAYEC Administration Metformin HCl 500 mg 05/09/20 17:00 05/13/20 08:24 Glucophage PO 500 mg BIDWM KAYCE Administration Morphine Sulfate 2 mg 05/11/20 14:42 05/13/20 11:38 Morphine Sulfate Inj (*Crx) IV PUSH 2 mg Q4H PRN Administration Pain Rated 7-10 Ondansetron HCl 4 mg 05/07/20 18:38 05/12/20 12:28 Zofran Inj IV PUSH 4 mg Q4H PRN Administration Nausea Polyethylene Glycol 17 gm 05/13/20 11:25 Miralax PO BID PRN Constipation Radiology Results: ITS Impressions Foot X-Ray 05/07/20 17:42 IMPRESSION: 1. Plantar soft tissue ulceration with soft tissue gas tracking proximally in the lateral foot and findings suggestive of osteomyelitis involving the heads of the fourth and fifth metatarsals and bases of the fourth and fifth proximal phalanges. Chest X-Ray 05/07/20 17:47 IMPRESSION: 1. No acute cardiopulmonary abnormality. Foot MRI 05/08/20 14:02 IMPRESSION: 1. No evidence of osteomyelitis. 2. Cellulitis of the foot. Soft tissue gas may be from the plantar ulcer. Necrotizing fasciiti
[2020-05-13 12:49] LABS: Glucose Point of Care 177 (65-105)
[2020-05-13 13:47] VITALS: BP 120/69; PULSE 86; RESP 18; TEMP 36.6; O2SAT 99
[2020-05-13] MEDS: HYDROcodone/acetaminophen (*CRX) 5-325 MG TABLET 1 TAB PO ×2 (14:14→20:52)
--- NOTE | 2020-05-13 15:43 | PM.IMPN ---
Progress Note: A&P Assessment and Plan (1) Acute osteomyelitis of left foot: Code(s): M86.172 - Other acute osteomyelitis, left ankle and foot Status: Acute Assessment and Plan: -----s/p incision and debridement of necrotizing fasciitis day 1. patient is doing well although does have some pain on exam. Currently on Zosyn in the plan is to have continue a few more days with this. Patient is unable to afford IV antibiotics outpatient, infectious disease on board and I appreciate his further recommendations. Per patient, he plans to get a wound VAC to the area (2) Sepsis: Qualifiers: Sepsis acute organ dysfunction status: unspecified Sepsis type: sepsis due to unspecified organism Qualified Code(s): A41.9 - Sepsis, unspecified organism Code(s): A41.9 - Sepsis, unspecified organism Status: Acute Assessment and Plan: ------ resolved.Evident on arrival by leukocytosis, fever and tachycardia. Secondary to osteomyelitis. Wound cultures growing group B strep, Staph aureus, and prevotella bivia. New cx from surgery have been sent. (3) Uncontrolled diabetes mellitus: Qualifiers: Diabetes mellitus type: type 2 Glycemic state: with hyperglycemia Qualified Code(s): E11.65 - Type 2 diabetes mellitus with hyperglycemia Code(s): E11.65 - Type 2 diabetes mellitus with hyperglycemia Status: Acute Assessment and Plan: -----Patient is historically noncompliant, has not seen a doctor in years and quit taking diabetes medications 3 years ago. Hgb A1c is 8.9%. He has been started on metformin and humulin 70/30 at 10u BID. Pt is doing well withthis and has been seen by DM educator. (4) Chronic constipation: Code(s): K59.09 - Other constipation Status: Acute Assessment and Plan: ------Patient has been started on BID MiraLax and FiberCon. Last BM 2 days ago. (5) Insomnia: Qualifiers: Insomnia type: unspecified Qualified Code(s): G47.00 - Insomnia, unspecified Code(s): G47.00 - Insomnia, unspecified Status: Acute Assessment and Plan: -----Continue Melatonin. Time Spent With Patient Time with patient: 25 - 35 minutes Subjective Date/time seen: 05/13/20 15:43 Interval history: Pt is a 64-year-old male here for osteomyelitis. Patient was seen today and really wants to go home. he has some pain in his foot after surgery but overall doing okay. Pt denies nausea, vomiting, fevers, chills, constipation, diarrhea, chest pain, sob, or abdominal pain. Review of Systems Review of Systems: All systems reviewed & are unremarkable except as noted in HPI and below Exam Narrative: Exam Narrative: General: Well developed well nourished patient in NAD HEENT: normocephalic Neck: supple Neuro: Alert and oriented x4 CV:RRR Resp:CTA Abd: Soft, non distended. No pain to palpation. Positive bowel sounds Extremities: Left leg bandaged which was not removed since he had just been seen prior and they plan to put a wound VAC on him. sensation intact Objective Data Vital Signs Vital Signs: Vital Signs - 24 hr 05/12/20 19:26 05/13/20 01:38 05/13/20 04:29 Temperature 97.5 F L 97 F L 98.1 F Pulse Rate 77 71 69 Respiratory Rate 16 16 16 Blood Pressure 120/56 L 133/71 122/66 Pulse Oximetry 99 99 98 05/13/20 09:16 05/13/20 13:47 Temperature 97.5 F L 97.9 F Pulse Rate 83 86 Respiratory Rate 18 18 Blood Pressure 134/73 120/69 Pulse Oximetry 99 99 Intake/Output Intake/Output: Intake & Output 05/10/20 05/11/20 05/12/20 05/13/20 23:59 23:59 23:59 23:59 Intake Total 4600 637 9331 1070 Output Total 479 938 4771 2650 Balance 913 -11 -658 -1580 Meds/Results Medications: Active Medications Generic Name Dose Route Start Last Admin Trade Name Freq PRN Reason Stop Dose Admin Acetaminophen 650 mg 05/09/20 16:13 05/09/20 16:31 Tylenol Tablet PO 650 mg Q4H PRN
[2020-05-13 17:59] LABS: Glucose Point of Care 224 (65-105)
[2020-05-13 20:17] VITALS: BP 140/74; PULSE 79; RESP 15; TEMP 36.8; O2SAT 98
[2020-05-13] MEDS: MELATONIN 5 MG TABLET PO (20:52)
[2020-05-13 21:03] LABS: Glucose Point of Care 149 (65-105)
[2020-05-14] MEDS: HYDROcodone/acetaminophen (*CRX) 5-325 MG TABLET 1 TAB PO ×3 (05:30→17:04)
[2020-05-14] MEDS: INSULIN HUMAN ISOPHAN/REGULAR 70/30 (*BKC) 100 UNITS/ML 10 UNITS SUB-Q ×2 (05:36→17:01)
[2020-05-14 05:55] LABS: Hematocrit 38.1 % (42.0-52.0); Hemoglobin 12.9 g/dL (14.0-18.0); Mean Corpuscular HGB Conc 33.9 g/dl (32-36); Mean Corpuscular Volume 88.6 fl (80-100); Mean Platelet Volume 10.4 fl (7.4-10.4); Platelet Count Result 243 k/mm3 (150-375); Red Cell Distribution Width 13.2 % (11.5-14.5); White Blood Count 9.3 K/mm3 (4.5-10.0)
[2020-05-14 06:11] LABS: Alanine Aminotransferase 26 U/L (4-50); Albumin Level 2.7 g/dL (3.5-5.1); Alkaline Phosphatase 91 U/L (38-126); Anion Gap 5 mmol/L (8-16); Aspartate Amino Transferase 41 U/L (17-59); Bilirubin,Total 0.6 mg/dL (0.2-1.3); Blood Urea Nitrogen 12 mg/dL (9-20); CRP 7.6 mg/dL (<1.0); Calcium 8.3 mg/dL (8.4-10.2); Carbon Dioxide 34 mmol/L (22-30); Chloride 96 mmol/L (98-107); Estimated CRCL calculation 68 ml/min; Estimated Glomerular Filt Rate > 60; Glucose 149 mg/dL (75-110); Potassium 4.2 mmol/L (3.4-5.0); Sodium 135 mmol/L (137-145)
[2020-05-14 06:34] VITALS: BP 145/75; PULSE 69; RESP 16; TEMP 36.6; O2SAT 98
[2020-05-14 06:42] LABS: Glucose Point of Care 138 (65-105)
--- NOTE | 2020-05-14 08:19 | PM.PNORT ---
Progress Note: A&P Assessment and Plan (1) Necrotizing fasciitis of ankle and foot: Code(s): M72.6 - Necrotizing fasciitis Status: Acute Assessment and Plan: postop day 2 left foot debridement from necrotizing fasciitis. wound VAC dressing to the left foot. Will hopefully allow foot and wound bed to stabilize and granulate. Will most likely need further debridement of any non viable skin and most likely 4th toe or 4th ray. Will need soft tissue reconstruction once stable. 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 No new complaint. Wound VAC placed yesterday. Exam Const: General: healthy appearing; No in distress or confusion Orientation/consciousness: patient oriented x3 and No confusion HENMT: Head: normal to inspection, normocephalic and atraumatic Eyes: Conjunctivae: conjunctivae normal Sclera: sclerae normal Resp: Effort & Inspection: normal respiratory effort and no audible wheezes Neuro: General: patient oriented x3 and No confusion Extrem: Other: left foot Wound VAC in place. Hallux, 2nd, 3rd and 5th toes with good capillary refill. Fourth toe dusky with sluggish to absent refill worse than yesterday. No extension of erythema, ecchymosis or skin changes above the ankle. Leg and knee benign. Psych: Affect: normal affect Objective Data Vital Signs Vital Signs: Vital Signs - 24 hr 05/13/20 09:16 05/13/20 13:47 05/13/20 20:17 Temperature 97.5 F L 97.9 F 98.3 F Pulse Rate 83 86 79 Respiratory Rate 18 18 15 Blood Pressure 134/73 120/69 140/74 Pulse Oximetry 99 99 98 05/14/20 06:34 Temperature 97.8 F Pulse Rate 69 Respiratory Rate 16 Blood Pressure 145/75 H Pulse Oximetry 98 Intake/Output Intake/Output: Intake & Output 05/11/20 05/12/20 05/13/20 05/14/20 23:59 23:59 23:59 23:59 Intake Total 840 1242 1670 100 Output Total 851 1900 9840 [address] [place] [address] -658 -980 -1175 Meds/Results Medications: Active Medications Generic Name Dose Route Start Last Admin Trade Name Freq PRN Reason Stop Dose Admin Acetaminophen 650 mg 05/09/20 16:13 05/09/20 16:31 Tylenol Tablet PO 650 mg Q4H PRN Administration Mild Pain (1-3) or Fever Hydrocodone Bitart/Acetaminophen 1 tab 05/08/20 20:38 05/14/20 05:30 [place] 5-325 Mg PO 1 tab Q4H PRN Administration Pain Rated 4-6 Calcium Polycarbophil 1,250 mg 05/08/20 17:00 05/13/20 17:44 Fiber Con PO 1,250 mg BID KAYCE Administration Docusate Sodium 100 mg 05/13/20 11:25 Colace Capsule PO BID PRN Constipation Enoxaparin Sodium 40 mg 05/08/20 10:30 05/13/20 08:24 Lovenox SUB-Q 40 mg DAILY KAYCE Administration Famotidine 20 mg 05/07/20 21:00 05/13/20 20:52 Pepcid Iv IV PUSH 20 mg Q12HR KAYCE Administration Gabapentin 300 mg 05/08/20 13:00 05/13/20 17:44 Neurontin PO 300 mg TID KAYCE Administration Piperacillin/Tazobactam/Dextrose 3.375 gm in 50 mls @ 100 mls/hr 05/08/20 00:00 05/14/20 06:06 Zosyn 3.375 Gm/D5w 50ml Pm IVPB Infused Q6HR KAYCE Infusion Insulin Human Isoph/Insulin Regular 10 units 05/09/20 16:30 05/14/20 05:36 SUB-Q 10 units BIDAC KAYCE Administration Magnesium Hydroxide 30 ml 0
[2020-05-14 08:48] LABS: Glucose Point of Care 135 (65-105)
[2020-05-14] MEDS: FAMOTIDINE 20 MG/2 ML VIAL IV PUSH ×2 (08:53→20:28)
[2020-05-14] MEDS: calcium polycarbophiL 625 MG TABLET 1250 MG PO ×2 (08:53→17:02)
[2020-05-14] MEDS: ENOXAPARIN 40 MG/0.4 ML SYRINGE SUB-Q (08:53)
[2020-05-14] MEDS: metFORMIN HCL 500 MG TABLET PO ×2 (08:53→17:02)
[2020-05-14] MEDS: GABAPENTIN 300 MG CAPSULE PO ×3 (08:53→17:02)
[2020-05-14] MEDS: MORPHINE SULFATE (*CRX) 2 MG/ML INJ IV PUSH ×3 (09:00→20:28)
[2020-05-14 09:05] VITALS: RESP 16; O2SAT 98
--- NOTE | 2020-05-14 11:16 | PCNWS ---
Weekly nutritional screen. Patient is tolerating current diet with adequate intake. No weight loss reported. No nutritional needs at this time.
--- NOTE | 2020-05-14 12:16 | PM.IMPN ---
Progress Note: A&P Assessment and Plan (1) Acute osteomyelitis of left foot: Code(s): M86.172 - Other acute osteomyelitis, left ankle and foot Status: Acute Assessment and Plan: -----s/p debridement of necrotizing fasciitis day 2. patient is doing well although does have some pain on exam. Currently on Zosyn in the plan is to have continue a few more days with this. Patient is unable to afford IV antibiotics outpatient, infectious disease on board and I appreciate his further recommendations. Wound vac intact but I suspect he will need further debridement. 3rd toe is purple with some black at the dorsal aspect--will need to watch closely. (2) Sepsis: Qualifiers: Sepsis acute organ dysfunction status: unspecified Sepsis type: sepsis due to unspecified organism Qualified Code(s): A41.9 - Sepsis, unspecified organism Code(s): A41.9 - Sepsis, unspecified organism Status: Acute Assessment and Plan: ------ resolved.Evident on arrival by leukocytosis, fever and tachycardia. Secondary to osteomyelitis. Wound cultures growing group B strep, Staph aureus, and prevotella bivia. New cx from surgery have been sent and so far growing group b strep. (3) Uncontrolled diabetes mellitus: Qualifiers: Diabetes mellitus type: type 2 Glycemic state: with hyperglycemia Qualified Code(s): E11.65 - Type 2 diabetes mellitus with hyperglycemia Code(s): E11.65 - Type 2 diabetes mellitus with hyperglycemia Status: Acute Assessment and Plan: -----Last glucose 135. Patient is historically noncompliant, has not seen a doctor in years and quit taking diabetes medications 3 years ago. Hgb A1c is 8.9%. He has been started on metformin and humulin 70/30 at 10u BID. Pt is doing well witht his and has been seen by DM educator. (4) Chronic constipation: Code(s): K59.09 - Other constipation Status: Acute Assessment and Plan: ------Patient has been started on BID MiraLax and FiberCon. Last BM today (5) Insomnia: Qualifiers: Insomnia type: unspecified Qualified Code(s): G47.00 - Insomnia, unspecified Code(s): G47.00 - Insomnia, unspecified Status: Acute Assessment and Plan: -----Continue Melatonin. Subjective Date/time seen: 05/14/20 12:16 Interval history: Pt is a 64-year-old male here for osteomyelitis. Patient was seen today and states his pain is better if he is still. Pt denies nausea, vomiting, fevers, chills, constipation, diarrhea, chest pain, sob, or abdominal pain. He had a small BM today. He had questions about his wound vac and f/u which i defered to Dr. Logan. We did discuss his diabetes treatment plan and how important good control is for healing. Exam Narrative: Exam Narrative: General: Well developed well nourished patient in NAD HEENT: normocephalic Neck: supple Neuro: Alert and oriented x4 CV:RRR Resp:CTA Abd: Soft, non distended. No pain to palpation. Positive bowel sounds Extremities: Left foot with wound vac intact. Some extensive brusing and dark purple 3rd toe. Objective Data Vital Signs Vital Signs: Vital Signs - 24 hr 05/13/20 13:47 05/13/20 20:17 05/14/20 06:34 Temperature 97.9 F 98.3 F 97.8 F Pulse Rate 86 79 69 Respiratory Rate 18 15 16 Blood Pressure 120/69 140/74 145/75 H Pulse Oximetry 99 98 98 05/14/20 09:05 Temperature Pulse Rate Respiratory Rate 16 Blood Pressure Pulse Oximetry 98 Intake/Output Intake/Output: Intake & Output 05/11/20 05/12/20 05/13/20 05/14/20 23:59 23:59 23:59 23:59 Intake Total 840 1242 1670 460 Output Total 851 1900 2650 1275 [facility]11 -658 -980 -815 Meds/Results Medications: Active Medications Generic Name Dose Route Start Last Admin Trade Name Freq PRN Reason Stop Dose Admin Acetaminophen 650 mg 05/09/20 16:13 05/09/20 16:31 Tylenol Tablet PO 650 mg Q4H PRN Administration
[2020-05-14 12:38] LABS: Glucose Point of Care 202 (65-105)
--- NOTE | 2020-05-14 12:55 | WPDINFPN2 ---
Progress Note: A&P Assessment and Plan (1) Acute osteomyelitis of left foot: Code(s): M86.172 - Other acute osteomyelitis, left ankle and foot Status: Acute Assessment and Plan: 1. Acute OM of L 4th and 5th MTs clinically, though not by operative findings. 2. Necrotizing fasciitis of foot, POD #2. Due to Grp B Strep., Prevotella, and YAHIR. 3. DM, poor control. 3. ASPVD, with borderline normal ROSIE on left. REC PipTazo #7, continue. CRP declining, I would continue inpatient IV therapy for another 2-4 days, guided by exam and repeat CRP in 2 days. He has no insurance benefits for outpatient medication including IV. Subjective Date/time seen: 05/14/20 12:55 Interval history: offers no new complaints, sleepy Exam Narrative: Exam Narrative: afebrile Const: General: no acute distress Resp: Effort & Inspection: normal respiratory effort Auscultation: clear to auscultation bilaterally Cardio: Rate: regular rate Rhythm: regular rhythm Skin: General skin exam: normal color and no rashes or lesions noted Extrem: Other: vac on. Cyanotic 4th toe. Ecchymosis dorsal foot Objective Data Vital Signs Vital Signs: Vital Signs - 24 hr 05/13/20 13:47 05/13/20 20:17 05/14/20 06:34 Temperature 36.6 C 36.8 C 36.6 C Pulse Rate 86 79 69 Respiratory Rate 18 15 16 Blood Pressure 120/69 140/74 145/75 H Pulse Oximetry 99 98 98 05/14/20 09:05 Temperature Pulse Rate Respiratory Rate 16 Blood Pressure Pulse Oximetry 98 Intake/Output Intake/Output: Intake & Output 05/11/20 05/12/20 05/13/20 05/14/20 23:59 23:59 23:59 23:59 Intake Total 840 1242 1670 460 Output Total 851 3920 7443 2649 [facility]11 -658 -980 -815 Meds/Results Medications: Active Medications Generic Name Dose Route Start Last Admin Trade Name Freq PRN Reason Stop Dose Admin Acetaminophen 650 mg 05/09/20 16:13 05/09/20 16:31 Tylenol Tablet PO 650 mg Q4H PRN Administration Mild Pain (1-3) or Fever Hydrocodone Bitart/Acetaminophen 1 tab 05/08/20 20:38 05/14/20 10:51 [place] 5-325 Mg PO 1 tab Q4H PRN Administration Pain Rated 4-6 Calcium Polycarbophil 1,250 mg 05/08/20 17:00 05/14/20 08:53 Fiber Con PO 1,250 mg BID KAYCE Administration Docusate Sodium 100 mg 05/13/20 11:25 Colace Capsule PO BID PRN Constipation Enoxaparin Sodium 40 mg 05/08/20 10:30 05/14/20 08:53 Lovenox SUB-Q 40 mg DAILY KAYCE Administration Famotidine 20 mg 05/07/20 21:00 05/14/20 08:53 Pepcid Iv IV PUSH 20 mg Q12HR KAYCE Administration Gabapentin 300 mg 05/08/20 13:00 05/14/20 12:29 Neurontin PO 300 mg TID KAYCE Administration Piperacillin/Tazobactam/Dextrose 3.375 gm in 50 mls @ 100 mls/hr 05/08/20 00:00 05/14/20 11:14 Zosyn 3.375 Gm/D5w 50ml Pm IVPB 100 mls/hr Q6HR KAYCE Administration Insulin Human Isoph/Insulin Regular 10 units 05/09/20 16:30 05/14/20 05:36 SUB-Q 10 units BIDAC KAYCE Administration Magnesium Hydroxide 30 ml 05/12/20 10:59 Milk Of Magnesia PO BID PRN Constipation Melatonin 5 mg 05/08/20 21:00 05/13/20 20:52 Melatonin PO 5 mg HS KAYCE Administration Metformin HCl 500 mg 05/09/20 17:00 05/14/20 08:53 Glucophage PO 500 mg BIDWM KAYCE Administration Morphine Sulfate 2 mg 05/11/20 14:42 05/14/20 09:00 Morphine Sulfate Inj (*Crx) IV PUSH 2 mg Q4H PRN Administration Pain Rated 7-10 Ondansetron HCl 4 mg 05/07/20 18:38 05/12/20 12:28 Zofran Inj IV PUSH 4 mg Q4H PRN Administration Nausea Polyethylene Glycol 17 gm 05/13/20 11:25 Miralax PO BID PRN Constipation Radiology Results: ITS Impressions Foot X-Ray 05/07/20 17:42 IMPRESSION: 1. Plantar soft tissue ulceration with soft tissue gas tracking proximally in the lateral foot and findings suggestive of osteomyelitis involving the heads of the fourth and fifth metatarsals and bases of the fourth and fif
[2020-05-14 14:00] VITALS: BP 143/70; PULSE 70; RESP 16; TEMP 36.7; O2SAT 99
[2020-05-14 16:55] LABS: Glucose Point of Care 133 (65-105)
[2020-05-14 20:24] VITALS: BP 138/69; PULSE 79; RESP 12; TEMP 36.9; O2SAT 100
[2020-05-14] MEDS: MELATONIN 5 MG TABLET PO (20:28)
[2020-05-14 21:13] LABS: Glucose Point of Care 149 (65-105)
[2020-05-15] MEDS: HYDROcodone/acetaminophen (*CRX) 5-325 MG TABLET 1 TAB PO ×3 (01:03→16:21)
[2020-05-15] MEDS: MORPHINE SULFATE (*CRX) 2 MG/ML INJ IV PUSH ×2 (03:41→20:40)
[2020-05-15] MEDS: INSULIN HUMAN ISOPHAN/REGULAR 70/30 (*BKC) 100 UNITS/ML 10 UNITS SUB-Q ×2 (05:46→16:27)
[2020-05-15 05:48] LABS: Glucose Point of Care 190 (65-105)
[2020-05-15 06:22] LABS: Hematocrit 36.4 % (42.0-52.0); Hemoglobin 12.2 g/dL (14.0-18.0); Mean Corpuscular HGB Conc 33.5 g/dl (32-36); Mean Corpuscular Hemoglobin 29.5 pg (26-34); Mean Corpuscular Volume 88.1 fl (80-100); Mean Platelet Volume 10.2 fl (7.4-10.4); Platelet Count Result 251 k/mm3 (150-375); Red Blood Count 4.13 M/mm3 (4.6-6.20); Red Cell Distribution Width 12.8 % (11.5-14.5); White Blood Count 11.5 K/mm3 (4.5-10.0)
[2020-05-15] MEDS: GABAPENTIN 300 MG CAPSULE PO ×3 (08:42→16:22)
[2020-05-15] MEDS: metFORMIN HCL 500 MG TABLET PO ×2 (08:42→16:22)
[2020-05-15] MEDS: calcium polycarbophiL 625 MG TABLET 1250 MG PO ×2 (08:42→16:22)
[2020-05-15] MEDS: ENOXAPARIN 40 MG/0.4 ML SYRINGE SUB-Q (08:42)
[2020-05-15 08:43] VITALS: RESP 16; O2SAT 99
[2020-05-15] MEDS: FAMOTIDINE 20 MG/2 ML VIAL IV PUSH ×2 (08:43→20:41)
--- NOTE | 2020-05-15 11:02 | PM.IMPN ---
Progress Note: A&P Assessment and Plan (1) Acute osteomyelitis of left foot: Code(s): M86.172 - Other acute osteomyelitis, left ankle and foot Status: Acute Assessment and Plan: -----s/p debridement of necrotizing fasciitis day 3. patient is doing well although does have some pain on exam. Currently on Zosyn and the plan is to continue a few more days with this. Patient is unable to afford IV antibiotics outpatient, infectious disease on board and I appreciate his further recommendations. Wound vac intact but I suspect he will need further debridement. 3rd toe is purple with some black at the dorsal aspect--will need to watch closely. Pt wanting to leave AMA today, advised him of the risks of that. (2) Sepsis: Qualifiers: Sepsis acute organ dysfunction status: unspecified Sepsis type: sepsis due to unspecified organism Qualified Code(s): A41.9 - Sepsis, unspecified organism Code(s): A41.9 - Sepsis, unspecified organism Status: Acute Assessment and Plan: ------ resolved.Evident on arrival by leukocytosis, fever and tachycardia. Secondary to osteomyelitis. Wound cultures growing group B strep, Staph aureus, and prevotella bivia. New cx from surgery have been sent and so far growing group b strep. (3) Uncontrolled diabetes mellitus: Qualifiers: Diabetes mellitus type: type 2 Glycemic state: with hyperglycemia Qualified Code(s): E11.65 - Type 2 diabetes mellitus with hyperglycemia Code(s): E11.65 - Type 2 diabetes mellitus with hyperglycemia Status: Acute Assessment and Plan: -----Last glucose 190. Patient is historically noncompliant, has not seen a doctor in years and quit taking diabetes medications 3 years ago. Hgb A1c is 8.9%. He has been started on metformin and humulin 70/30 at 10u BID. Pt is doing well with this and has been seen by DM educator. (4) Chronic constipation: Code(s): K59.09 - Other constipation Status: Acute Assessment and Plan: ------Patient has been started on BID MiraLax and FiberCon now PRN as he was having too many stools prior. (5) Insomnia: Qualifiers: Insomnia type: unspecified Qualified Code(s): G47.00 - Insomnia, unspecified Code(s): G47.00 - Insomnia, unspecified Status: Acute Assessment and Plan: -----Continue Melatonin. Subjective Date/time seen: 05/15/20 11:02 Interval history: Pt is a 64-year-old male here for osteomyelitis. Patient was seen today and states he is doing okay. He discloses to me that his girlfriend has left him and that he needs to get home to his cat and house. I explained to him about the severity of his illness and that he cannot go home due to his infection and need for IV antibiotics. He talked about leaving AMA in which I told him he may lose his foot, or worse, and he understands this. Pt denies nausea, vomiting, fevers, chills, constipation, diarrhea, chest pain, sob, or abdominal pain. Exam Narrative: Exam Narrative: General: Well developed well nourished patient in NAD HEENT: normocephalic Neck: supple Neuro: Alert and oriented x4 CV:RRR Resp:CTA Abd: Soft, non distended. No pain to palpation. Positive bowel sounds Extremities: Left foot with wound vac intact. Some extensive brusing, necrosis and dark purple 3rd toe. Objective Data Vital Signs Vital Signs: Vital Signs - 24 hr 05/14/20 14:00 05/14/20 20:24 Temperature 98.0 F 98.5 F Pulse Rate 70 79 Respiratory Rate 16 12 Blood Pressure 143/70 H 138/69 Pulse Oximetry 99 100 Intake/Output Intake/Output: Intake & Output 05/12/20 05/13/20 05/14/20 05/15/20 23:59 23:59 23:59 23:59 Intake Total 1242 1670 1600 340 Output Total 1900 5750 2705 1600 [facility] -658 -980 [phone] -1260 Meds/Results Medications: Active Medications Generic Name Dose Route Start Last Admin Trade Name Freq PRN Reason Stop Dose Admin Acetami
[2020-05-15 12:14] LABS: Glucose Point of Care 213 (65-105)
--- NOTE | 2020-05-15 13:27 | PM.PNORT ---
Progress Note: A&P Assessment and Plan (1) Necrotizing fasciitis of ankle and foot: Code(s): M72.6 - Necrotizing fasciitis Status: Acute Assessment and Plan: POD #3: left foot debridement from necrotizing fasciitis Continue WOUND VAC at this time. Continue IV antibiotics. NWPatricia LLE. Plan for change to wound VAC tomorrow. Hopeful for foot/wound bed to stabilize and granulate. Will likely need further debridement and 4th ray amputation in the near future by Dr. Cotton. Future need for soft tissue reconstruction pending stabilization of current infection/wound. 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 Wants to leave today, advised against given current situation with his foot. No other complaints. Review of Systems Review of Systems: All systems reviewed & are unremarkable except as noted in HPI and below Constitutional: Constitutional: Reports as per HPI Cardiovascular: Cardiovascular: Reports as per HPI, Denies chest pain and Denies lightheadedness Respiratory: Respiratory: Denies cough, Denies dyspnea and Denies wheezing Musculoskeletal: Musculoskeletal: Reports arthralgias (left foot ), Reports joint swelling (left foot ), Reports numbness (b/l feet ) and Reports tingling (b/l feet ) Exam Const: General: healthy appearing; No in distress or confusion Orientation/consciousness: patient oriented x3 and No confusion HENMT: Head: normal to inspection, normocephalic and atraumatic Eyes: Conjunctivae: conjunctivae normal Sclera: sclerae normal Resp: Effort & Inspection: normal respiratory effort and no audible wheezes Neuro: General: patient oriented x3 and No confusion Extrem: Other: left foot Wound VAC in place. Hallux, 2nd, 3rd and 5th toes with good capillary refill. Fourth toe remains dusky with sluggish to absent refill, continued to worsen from previous exam. No extension of erythema, ecchymosis or skin changes above the ankle. Leg and knee benign. Psych: Affect: normal affect Objective Data Vital Signs Vital Signs: Vital Signs - 24 hr 05/14/20 14:00 05/14/20 20:24 05/15/20 08:43 Temperature 36.7 C 36.9 C Pulse Rate 70 79 Respiratory Rate 16 12 16 Blood Pressure 143/70 H 138/69 Pulse Oximetry 99 100 99 Intake/Output Intake/Output: Intake & Output 05/12/20 05/13/20 05/14/20 05/15/20 23:59 23:59 23:59 23:59 Intake Total 1242 1670 1600 340 Output Total 1900 2650 3475 1600 [facility], [place] 658 -980 -1875 -1260 Meds/Results Medications: Active Medications Generic Name Dose Route Start Last Admin Trade Name Freq PRN Reason Stop Dose Admin Acetaminophen 650 mg 05/09/20 16:13 05/09/20 16:31 Tylenol Tablet PO 650 mg Q4H PRN Administration Mild Pain (1-3) or Fever Hydrocodone Bitart/Acetaminophen 1 tab 05/08/20 20:38 05/15/20 08:43 [place] 5-325 Mg PO 1 tab Q4H PRN Administration Pain Rated 4-6 Calcium Polycarbophil 1,250 mg 05/08/20 17:00 05/15/20 08:42 Fiber Con PO 1,250 mg BID KAYCE Administration Docusate Sodium 100 mg 05/13/20 11:25 Colace Capsule PO BID PRN Constipation Enoxaparin Sodium 40 mg 05/08/20 10:30 05/15/20 08:42 Lovenox SUB-Q 40 mg
--- NOTE | 2020-05-15 14:07 | PC.NURSE ---
On 05/15/20, the student, [ Catherine Guzman], provided care and [email or web address] on this [facility]. I have reviewed the student's documentation and agree with the findings.
[2020-05-15 16:27] LABS: Glucose Point of Care 153 (65-105)
[2020-05-15 20:27] VITALS: BP 146/81; PULSE 74; RESP 12; TEMP 37.2; O2SAT 98
[2020-05-15] MEDS: MELATONIN 5 MG TABLET PO (20:41)
[2020-05-15 21:43] LABS: Glucose Point of Care 173 (65-105)
[2020-05-16 05:15] VITALS: BP 116/77; PULSE 73; RESP 12; TEMP 37.9; O2SAT 98
[2020-05-16] MEDS: HYDROcodone/acetaminophen (*CRX) 5-325 MG TABLET 1 TAB PO ×2 (05:28→15:29)
[2020-05-16] MEDS: INSULIN HUMAN ISOPHAN/REGULAR 70/30 (*BKC) 100 UNITS/ML 10 UNITS SUB-Q ×2 (05:34→17:22)
[2020-05-16 05:49] LABS: Glucose Point of Care 188 (65-105)
[2020-05-16 06:41] LABS: Basophils Percent Auto 0.4 % (0.2-1.2); Eosinophils Absolute Auto 0.2 K/mm3 (0-0.3); Eosinophils Percent Auto 1.5 % (0-4.4); Hematocrit 39.9 % (42.0-52.0); Hemoglobin 13.4 g/dL (14.0-18.0); Immature Granulocyte Absolute 0.08 K/mm3 (0.00-0.031); Immature Granulocyte Percent A 0.7 % (0-0.5); Lymphocytes Absolute Auto 1.33 K/mm3 (0.9-3.2); Lymphocytes Percent Auto 12.2 % (18.3-44.2); Mean Corpuscular HGB Conc 33.6 g/dl (32-36); Mean Corpuscular Volume 86.4 fl (80-100); Mean Platelet Volume 9.6 fl (7.4-10.4); Monocytes Absolute Auto 0.7 K/mm3 (0.1-0.6); Monocytes Percent Auto 6.8 % (2.6-8.5); Neutrophils Absolute Auto 8.5 K/mm3 (1.3-6.7); Neutrophils Percent Auto 78.4 % (45.5-73.1); Platelet Count Result 283 k/mm3 (150-375); Red Blood Count 4.62 M/mm3 (4.6-6.20); Red Cell Distribution Width 12.7 % (11.5-14.5); White Blood Count 10.9 K/mm3 (4.5-10.0)
[2020-05-16 06:50] VITALS: TEMP 36.9
[2020-05-16 07:59] LABS: Glucose Point of Care 170 (65-105)
[2020-05-16 08:15] LABS: Anion Gap 8 mmol/L (8-16); Carbon Dioxide 31 mmol/L (22-30); Chloride 95 mmol/L (98-107); Estimated CRCL calculation 62 ml/min; Estimated Glomerular Filt Rate > 60; Potassium 4.4 mmol/L (3.4-5.0); Sodium 134 mmol/L (137-145)
[2020-05-16] MEDS: ENOXAPARIN 40 MG/0.4 ML SYRINGE SUB-Q (08:59)
[2020-05-16] MEDS: calcium polycarbophiL 625 MG TABLET 1250 MG PO ×2 (08:59→17:16)
[2020-05-16] MEDS: metFORMIN HCL 500 MG TABLET PO ×2 (08:59→17:16)
[2020-05-16] MEDS: GABAPENTIN 300 MG CAPSULE PO ×3 (08:59→17:16)
[2020-05-16] MEDS: FAMOTIDINE 20 MG/2 ML VIAL IV PUSH ×2 (08:59→20:03)
[2020-05-16 10:06] LABS: Blood Urea Nitrogen 11 mg/dL (9-20); Calcium 8.9 mg/dL (8.4-10.2); Glucose 189 mg/dL (75-110)
[2020-05-16 10:53] LABS: CRP 11.9 mg/dL (<1.0)
--- NOTE | 2020-05-16 10:53 | PM.IMPN ---
Progress Note: A&P Assessment and Plan (1) Acute osteomyelitis of left foot: Code(s): M86.172 - Other acute osteomyelitis, left ankle and foot Status: Acute Assessment and Plan: -----s/p debridement of necrotizing fasciitis day 4. The patient had a fever overnight and white blood cell count is up. Blood cultures were drawn today and I will ask Ortho their thoughts on this. At this time, continue Zosyn and the plan is to continue a few more days with this. Patient is unable to afford IV antibiotics outpatient, infectious disease on board and I appreciate his further recommendations. Wound vac intact but I suspect he will need further debridement. 4th toe is purple with some black at the dorsal aspect--will need to watch closely. (2) Sepsis: Qualifiers: Sepsis acute organ dysfunction status: unspecified Sepsis type: sepsis due to unspecified organism Qualified Code(s): A41.9 - Sepsis, unspecified organism Code(s): A41.9 - Sepsis, unspecified organism Status: Acute Assessment and Plan: ------ resolved.Evident on arrival by leukocytosis, fever and tachycardia. Secondary to osteomyelitis. Wound cultures growing group B strep, Staph aureus, and prevotella bivia. New cx from surgery have been sent and so far growing group b strep and peptostreptococcus. (3) Uncontrolled diabetes mellitus: Qualifiers: Diabetes mellitus type: type 2 Glycemic state: with hyperglycemia Qualified Code(s): E11.65 - Type 2 diabetes mellitus with hyperglycemia Code(s): E11.65 - Type 2 diabetes mellitus with hyperglycemia Status: Acute Assessment and Plan: -----Last glucose 170. Patient is historically noncompliant, has not seen a doctor in years and quit taking diabetes medications 3 years ago. Hgb A1c is 8.9%. He has been started on metformin and humulin 70/30 at 10u BID. Pt is doing well with this and has been seen by DM educator. (4) Chronic constipation: Code(s): K59.09 - Other constipation Status: Acute Assessment and Plan: ------Patient has been started on BID MiraLax and FiberCon now PRN as he was having too many stools prior. (5) Insomnia: Qualifiers: Insomnia type: unspecified Qualified Code(s): G47.00 - Insomnia, unspecified Code(s): G47.00 - Insomnia, unspecified Status: Acute Assessment and Plan: -----Continue Melatonin. Subjective Date/time seen: 05/16/20 10:53 Interval history: Pt is a 64-year-old male here for osteomyelitis. Patient was seen today and states he did not sleep very well because he is going through a lot and he had some pain. He continues to have bowel movements and thinks they are a little soft. He had a fever overnight but no chills. Pt denies nausea, vomiting, chest pain, sob, or abdominal pain. Exam Narrative: Exam Narrative: General: Well developed well nourished patient in NAD HEENT: normocephalic Neck: supple Neuro: Alert and oriented x4 CV:RRR Resp:CTA Abd: Soft, non distended. No pain to palpation. Positive bowel sounds Extremities: Left foot with wound vac intact. Some extensive brusing, necrosis and dark purple 4th toe. Objective Data Vital Signs Vital Signs: Vital Signs - 24 hr 05/15/20 20:27 05/16/20 05:15 05/16/20 06:50 Temperature 99 F 100.3 F H 98.5 F Pulse Rate 74 73 Respiratory Rate 12 12 Blood Pressure 146/81 H 116/77 Pulse Oximetry 98 98 Intake/Output Intake/Output: Intake & Output 05/13/20 05/14/20 05/15/20 05/16/20 23:59 23:59 23:59 23:59 Intake Total 1670 1600 2570 790 Output Total 2650 3475 1051 1775 Balance -980 -1875 -2430 -985 Meds/Results Medications: Active Medications Generic Name Dose Route Start Last Admin Trade Name Freq PRN Reason Stop Dose Admin Acetaminophen 650 mg 05/09/20 16:13 05/09/20 16:31 Tylenol Tablet PO 650 mg Q4H PRN Administration Mild Pain (1-3) o
[2020-05-16 11:39] LABS: Glucose Point of Care 206 (65-105)
[2020-05-16] MEDS: MORPHINE SULFATE (*CRX) 2 MG/ML INJ IV PUSH ×2 (11:54→20:04)
--- NOTE | 2020-05-16 13:07 | PM.PNORT ---
Progress Note: A&P Assessment and Plan (1) Necrotizing fasciitis of ankle and foot: Code(s): M72.6 - Necrotizing fasciitis Status: Acute Assessment and Plan: POD #4: left foot debridement from necrotizing fasciitis Wound VAC dressing change today. Fourth ray remains dusky in appearance. Stable in comparison to yesterday. Discussed need for further conservative treatment with wound VAC at this time pending stabilization of the wound to allow it to declare itself. Patient aware of potential need for 4th ray amputation further debridement. Continue wound VAC dressing at this time. Plan for wound VAC change on Tuesday. Continue IV antibiotics per medicine team. Nonweightbearing of the left lower extremity. Elevated on pillows. We will continue monitor. 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 (3) Cellulitis of left foot: Code(s): L03.116 - Cellulitis of left lower limb Status: Acute Subjective Subjective Date/Time Seen: 05/16/20 13:07 Continued complaints of left foot pain. Concerns about future of foot and extensiveness of wound care/prolonged outcome. No other complaints. Review of Systems Review of Systems: All systems reviewed & are unremarkable except as noted in HPI and below Constitutional: Constitutional: Reports as per HPI, Reports difficulty sleeping, Reports fever(s) and Reports night sweats Cardiovascular: Cardiovascular: Reports as per HPI, Denies chest pain and Denies lightheadedness Respiratory: Respiratory: Denies cough, Denies dyspnea and Denies wheezing Musculoskeletal: Musculoskeletal: Reports arthralgias (left foot ), Reports joint swelling (left foot ), Reports numbness (b/l feet ) and Reports tingling (b/l feet ) Psychiatric: Psychiatric: Reports anxiety Objective Data Vital Signs Vital Signs: Vital Signs - 24 hr 05/15/20 20:27 05/16/20 05:15 05/16/20 06:50 Temperature 37.2 C 37.9 C H 36.9 C Pulse Rate 74 73 Respiratory Rate 12 12 Blood Pressure 146/81 H 116/77 Pulse Oximetry 98 98 Intake/Output Intake/Output: Intake & Output 05/13/20 05/14/20 05/15/20 05/16/20 23:59 23:59 23:59 23:59 Intake Total 1670 1600 2570 840 Output Total 2650 3059 1001 3205 [facility] -980 -1875 -2430 -1285 Meds/Results Medications: Active Medications Generic Name Dose Route Start Last Admin Trade Name Freq PRN Reason Stop Dose Admin Acetaminophen 650 mg 05/09/20 16:13 05/09/20 16:31 Tylenol Tablet PO 650 mg Q4H PRN Administration Mild Pain (1-3) or Fever Hydrocodone Bitart/Acetaminophen 1 tab 05/08/20 20:38 05/16/20 05:28 [place] 5-325 Mg PO 1 tab Q4H PRN Administration Pain Rated 4-6 Calcium Polycarbophil 1,250 mg 05/08/20 17:00 05/16/20 08:59 Fiber Con PO 1,250 mg BID KAYCE Administration Docusate Sodium 100 mg 05/13/20 11:25 Colace Capsule PO BID PRN Constipation Enoxaparin Sodium 40 mg 05/08/20 10:30 05/16/20 08:59 Lovenox SUB-Q 40 mg DAILY KAYCE Administration Famotidine 20 mg 05/07/20 21:00 05/16/20 08:59 Pepcid Iv IV PUSH 20 mg Q12HR KAYCE Administration Gabapentin 300 mg 05/08/20 13:00 05/16/20 12:15 Neurontin PO 300 mg TID KAYCE Administration Piperacillin/Tazobactam/Dextrose 3.375 gm in 50 mls @ 100
[2020-05-16 15:47] VITALS: BP 131/69; PULSE 100; RESP 18; TEMP 36.2; O2SAT 100
--- NOTE | 2020-05-16 15:59 | WPDINFPN2 ---
Progress Note: A&P Assessment and Plan (1) Acute osteomyelitis of left foot: Code(s): M86.172 - Other acute osteomyelitis, left ankle and foot Status: Acute Assessment and Plan: 1. Acute OM of L 4th and 5th MTs clinically, though not by operative findings. 2. Necrotizing fasciitis of foot, POD #4. Due to Grp B Strep., Prevotella, and YAHIR. 3. DM, poor control. 3. ASPVD, with borderline normal ROSIE on left. REC PipTazo #9, continue. CRP back up, and due to this result and his exam, I would not switch to po until at least AM 10/. He has no insurance benefits for outpatient medication including po/IV. Subjective Date/time seen: 05/16/20 15:59 Interval history: no new complaints Exam Narrative: Exam Narrative: afebrile Const: General: no acute distress Eyes: General: appearance normal, both eyes and all related structures Resp: Effort & Inspection: normal respiratory effort Auscultation: clear to auscultation bilaterally Cardio: Rate: regular rate Rhythm: regular rhythm Heart sounds: no murmurs Skin: General skin exam: no rashes or lesions noted Extrem: Other: 4th toe still cyanotic. Mild erythema over dorsal foot. Non tender. Objective Data Vital Signs Vital Signs: Vital Signs - 24 hr 05/15/20 20:27 05/16/20 05:15 05/16/20 06:50 Temperature 37.2 C 37.9 C H 36.9 C Pulse Rate 74 73 Respiratory Rate 12 12 Blood Pressure 146/81 H 116/77 Pulse Oximetry 98 98 05/16/20 15:47 Temperature 36.2 C L Pulse Rate 100 Respiratory Rate 18 Blood Pressure 131/69 Pulse Oximetry 100 Intake/Output Intake/Output: Intake & Output 05/13/20 05/14/20 05/15/20 05/16/20 23:59 23:59 23:59 23:59 Intake Total 1670 1600 2570 840 Output Total 2650 7963 0330 5136 Balance -980 -1875 -2430 -1285 Meds/Results Medications: Active Medications Generic Name Dose Route Start Last Admin Trade Name Freq PRN Reason Stop Dose Admin Acetaminophen 650 mg 05/09/20 16:13 05/09/20 16:31 Tylenol Tablet PO 650 mg Q4H PRN Administration Mild Pain (1-3) or Fever Hydrocodone Bitart/Acetaminophen 1 tab 05/08/20 20:38 05/16/20 15:29 [place] 5-325 Mg PO 1 tab Q4H PRN Administration Pain Rated 4-6 Calcium Polycarbophil 1,250 mg 05/08/20 17:00 05/16/20 08:59 Fiber Con PO 1,250 mg BID KAYCE Administration Docusate Sodium 100 mg 05/13/20 11:25 Colace Capsule PO BID PRN Constipation Enoxaparin Sodium 40 mg 05/08/20 10:30 05/16/20 08:59 Lovenox SUB-Q 40 mg DAILY KAYCE Administration Famotidine 20 mg 05/07/20 21:00 05/16/20 08:59 Pepcid Iv IV PUSH 20 mg Q12HR KAYCE Administration Gabapentin 300 mg 05/08/20 13:00 05/16/20 12:15 Neurontin PO 300 mg TID KAYCE Administration Piperacillin/Tazobactam/Dextrose 3.375 gm in 50 mls @ 100 mls/hr 05/08/20 00:00 05/16/20 12:46 Zosyn 3.375 Gm/D5w 50ml Pm IVPB Infused Q6HR [facility] Infusion Insulin Human Isoph/Insulin Regular 10 units 05/09/20 16:30 05/16/20 05:34 SUB-Q 10 units BIDAC KAYCE Administration Magnesium Hydroxide 30 ml 05/12/20 10:59 Milk Of Magnesia PO BID PRN Constipation Melatonin 5 mg 05/08/20 21:00 05/15/20 20:41 Melatonin PO 5 mg HS KAYCE Administration Metformin HCl 500 mg 05/09/20 17:00 05/16/20 08:59 Glucophage PO 500 mg BIDWM KAYCE Administration Morphine Sulfate 2 mg 05/11/20 14:42 05/16/20 11:54 Morphine Sulfate Inj (*Crx) IV PUSH 2 mg Q4H PRN Administration Pain Rated 7-10 Ondansetron HCl 4 mg 05/07/20 18:38 05/12/20 12:28 Zofran Inj IV PUSH 4 mg Q4H PRN Administration Nausea Polyethylene Glycol 17 gm 05/13/20 11:25 Miralax PO BID PRN Constipation Radiology Results: ITS Impressions Foot X-Ray 05/07/20 17:42 IMPRESSION: 1. Plantar soft tissue ulceration with soft tissue gas tracking proximally in the lateral foot and findings suggestive of osteomyelitis involving
[2020-05-16 16:30] LABS: Glucose Point of Care 172 (65-105)
[2020-05-16 20:03] LABS: Glucose Point of Care 200 (65-105)
[2020-05-16] MEDS: MELATONIN 5 MG TABLET PO (20:03)
[2020-05-16 20:54] VITALS: BP 119/64; PULSE 80; RESP 16; TEMP 36.5; O2SAT 97
[2020-05-17] MEDS: HYDROcodone/acetaminophen (*CRX) 5-325 MG TABLET 1 TAB PO
[2020-05-17] MEDS: INSULIN HUMAN ISOPHAN/REGULAR 70/30 (*BKC) 100 UNITS/ML 10 UNITS SUB-Q ×2 (05:44→18:32)
[2020-05-17 05:50] LABS: Glucose Point of Care 156 (65-105)
[2020-05-17] MEDS: MORPHINE SULFATE (*CRX) 2 MG/ML INJ IV PUSH ×2 (05:50→10:06)
[2020-05-17 06:13] LABS: Basophils Absolute Auto 0.1 K/mm3 (0.0-0.1); Basophils Percent Auto 0.7 % (0.2-1.2); Eosinophils Absolute Auto 0.2 K/mm3 (0-0.3); Hematocrit 42.1 % (42.0-52.0); Hemoglobin 14.3 g/dL (14.0-18.0); Immature Granulocyte Absolute 0.07 K/mm3 (0.00-0.031); Immature Granulocyte Percent A 0.7 % (0-0.5); Lymphocytes Absolute Auto 1.81 K/mm3 (0.9-3.2); Lymphocytes Percent Auto 18.1 % (18.3-44.2); Mean Corpuscular Volume 88.3 fl (80-100); Mean Platelet Volume 10.4 fl (7.4-10.4); Monocytes Absolute Auto 0.7 K/mm3 (0.1-0.6); Monocytes Percent Auto 7.4 % (2.6-8.5); Neutrophils Absolute Auto 7.1 K/mm3 (1.3-6.7); Neutrophils Percent Auto 71.1 % (45.5-73.1); Platelet Count Result 280 k/mm3 (150-375); Red Blood Count 4.77 M/mm3 (4.6-6.20); Red Cell Distribution Width 12.6 % (11.5-14.5)
[2020-05-17 06:23] LABS: Alanine Aminotransferase 29 U/L (4-50); Albumin Level 3.2 g/dL (3.5-5.1); Alkaline Phosphatase 93 U/L (38-126); Anion Gap 7 mmol/L (8-16); Aspartate Amino Transferase 31 U/L (17-59); Bilirubin,Total 0.6 mg/dL (0.2-1.3); Blood Urea Nitrogen 14 mg/dL (9-20); CRP 7.4 mg/dL (<1.0); Carbon Dioxide 28 mmol/L (22-30); Chloride 98 mmol/L (98-107); Estimated CRCL calculation 68 ml/min; Estimated Glomerular Filt Rate > 60; Glucose 177 mg/dL (75-110); Potassium 4.3 mmol/L (3.4-5.0); Sodium 133 mmol/L (137-145)
[2020-05-17 07:55] LABS: Glucose Point of Care 145 (65-105)
[2020-05-17 08:00] VITALS: PULSE 80; RESP 16; O2SAT 97
[2020-05-17] MEDS: calcium polycarbophiL 625 MG TABLET 1250 MG PO ×2 (09:59→18:37)
[2020-05-17] MEDS: metFORMIN HCL 500 MG TABLET PO ×2 (09:59→18:36)
[2020-05-17] MEDS: ENOXAPARIN 40 MG/0.4 ML SYRINGE SUB-Q (10:09)
[2020-05-17] MEDS: FAMOTIDINE 20 MG/2 ML VIAL IV PUSH ×2 (10:10→20:38)
[2020-05-17] MEDS: GABAPENTIN 300 MG CAPSULE PO ×3 (10:26→18:37)
--- NOTE | 2020-05-17 12:53 | PM.PNORT ---
Progress Note: A&P Assessment and Plan (1) Necrotizing fasciitis of ankle and foot: Code(s): M72.6 - Necrotizing fasciitis Status: Acute Assessment and Plan: Postoperative day 5. Left foot debridement. Wound VAC dressing yesterday. No new changes with the foot. Fourth toe still with venous stasis and poor arterial flow. Continued pain. We will try to adjust pain Medication regimen. plan for wound VAC dressing change 05/19. Plan for continued IV antibiotics until then. 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 Worse with movement. Exam Const: General: healthy appearing; No in distress or confusion Orientation/consciousness: patient oriented x3 and No confusion HENMT: Head: normal to inspection, normocephalic and atraumatic Eyes: Conjunctivae: conjunctivae normal Sclera: sclerae normal Resp: Effort & Inspection: normal respiratory effort and no audible wheezes Neuro: General: patient oriented x3 and No confusion Extrem: Other: left foot Wound VAC in place. Hallux, 2nd, 3rd and 5th toes with good capillary refill. Fourth toe remains dusky with sluggish to absent refill, continued to worsen from previous exam. No extension of erythema, ecchymosis or skin changes above the ankle. Leg and knee benign. Psych: Affect: normal affect Objective Data Vital Signs Vital Signs: Vital Signs - 24 hr 05/16/20 15:47 05/16/20 20:54 Temperature 97.2 F L 97.7 F Pulse Rate 100 80 Respiratory Rate 18 16 Blood Pressure 131/69 119/64 Pulse Oximetry 100 97 Intake/Output Intake/Output: Intake & Output 09/30/20 10/01/20 10/02/20 10/03/20 23:59 23:59 23:59 23:59 Intake Total 1600 2570 1680 440 Output Total 8454 4745 9893 25 Balance -5619 -9707 -9338 415 Meds/Results Medications: Active Medications Generic Name Dose Route Start Last Admin Trade Name Freq PRN Reason Stop Dose Admin Acetaminophen 650 mg 05/09/20 16:13 05/09/20 16:31 Tylenol Tablet PO 650 mg Q4H PRN Administration Mild Pain (1-3) or Fever Hydrocodone Bitart/Acetaminophen 1 tab 05/08/20 20:38 05/17/20 00:00 [place] 5-325 Mg PO 1 tab Q4H PRN Administration Pain Rated 4-6 Calcium Polycarbophil 1,250 mg 05/08/20 17:00 05/17/20 09:59 Fiber Con PO 1,250 mg BID KAYCE Administration Docusate Sodium 100 mg 05/13/20 11:25 Colace Capsule PO BID PRN Constipation Enoxaparin Sodium 40 mg 05/08/20 10:30 05/17/20 10:09 Lovenox SUB-Q 40 mg DAILY KAYCE Administration Famotidine 20 mg 05/07/20 21:00 05/17/20 10:10 Pepcid Iv IV PUSH 20 mg Q12HR KAYCE Administration Gabapentin 300 mg 05/08/20 13:00 05/17/20 10:26 Neurontin PO 300 mg TID KAYCE Administration Piperacillin/Tazobactam/Dextrose 3.375 gm in 50 mls @ 100 mls/hr 05/08/20 00:00 05/17/20 12:36 Zosyn 3.375 Gm/D5w 50ml Pm IVPB 100 mls/hr Q6HR KAYCE Administration Insulin Human Isoph/Insulin Regular 10 units 05/09/20 16:30 05/17/20 05:44 SUB-Q 10 units BIDAC KAYCE Administration Magnesium Hydroxide 30 ml 05/12/20 10:59 Milk Of Magnesia PO BID PRN Constipation Melatonin 5 mg 05/08/20 21:00 05/16/20 20:03 Melatonin
--- NOTE | 2020-05-17 13:40 | PM.IMPN ---
Progress Note: A&P Assessment and Plan (1) Acute osteomyelitis of left foot: Code(s): M86.172 - Other acute osteomyelitis, left ankle and foot Status: Acute Assessment and Plan: -----s/p debridement of necrotizing fasciitis day 5. Pt blood cultures are negative so far and no additional fever has been noted. At this time, continue Zosyn and the plan is to continue a few more days with this. Patient is unable to afford IV antibiotics outpatient, infectious disease on board and I appreciate his further recommendations. Wound vac intact but I suspect he will need further debridement. 4th toe is purple with some black at the dorsal aspect--will need to watch closely. (2) Sepsis: Qualifiers: Sepsis acute organ dysfunction status: unspecified Sepsis type: sepsis due to unspecified organism Qualified Code(s): A41.9 - Sepsis, unspecified organism Code(s): A41.9 - Sepsis, unspecified organism Status: Acute Assessment and Plan: ------ resolved .Evident on arrival by leukocytosis, fever and tachycardia. Secondary to osteomyelitis. Wound cultures growing group B strep, Staph aureus, and prevotella bivia. New cx from surgery have been sent and so far growing group b strep and peptostreptococcus. (3) Uncontrolled diabetes mellitus: Qualifiers: Diabetes mellitus type: type 2 Glycemic state: with hyperglycemia Qualified Code(s): E11.65 - Type 2 diabetes mellitus with hyperglycemia Code(s): E11.65 - Type 2 diabetes mellitus with hyperglycemia Status: Acute Assessment and Plan: -----Last glucose 145. Patient is historically noncompliant, has not seen a doctor in years and quit taking diabetes medications 3 years ago. Hgb A1c is 8.9%. He has been started on metformin and humulin 70/30 at 10u BID. Pt is doing well with this and has been seen by DM educator. (4) Chronic constipation: Code(s): K59.09 - Other constipation Status: Acute Assessment and Plan: ------Patient has been started on BID MiraLax and FiberCon now PRN as he was having too many stools prior. (5) Insomnia: Qualifiers: Insomnia type: unspecified Qualified Code(s): G47.00 - Insomnia, unspecified Code(s): G47.00 - Insomnia, unspecified Status: Acute Assessment and Plan: -----Continue Melatonin. Subjective Date/time seen: 05/17/20 13:40 Interval history: Pt is a 64-year-old male here for osteomyelitis. Patient was seen today and in better spirits. He thinks he is feeling better and has no complaints. Pt denies nausea, vomiting, fevers, chills, constipation, diarrhea, chest pain, sob, or abdominal pain. Exam Narrative: Exam Narrative: General: Well developed well nourished patient in NAD HEENT: normocephalic Neck: supple Neuro: Alert and oriented x4 CV:RRR Resp:CTA Abd: Soft, non distended. No pain to palpation. Positive bowel sounds Extremities: Left foot with wound vac intact. Some extensive brusing, necrosis and dark purple 4th toe. Objective Data Vital Signs Vital Signs: Vital Signs - 24 hr 05/16/20 15:47 05/16/20 20:54 Temperature 97.2 F L 97.7 F Pulse Rate 100 80 Respiratory Rate 18 16 Blood Pressure 131/69 119/64 Pulse Oximetry 100 97 Intake/Output Intake/Output: Intake & Output 05/14/20 05/15/20 05/16/20 05/17/20 23:59 23:59 23:59 23:59 Intake Total 1600 2570 1680 440 Output Total 3475 5000 3125 25 Balance -9135 -8371 -9112 415 Meds/Results Medications: Active Medications Generic Name Dose Route Start Last Admin Trade Name Freq PRN Reason Stop Dose Admin Acetaminophen 650 mg 05/09/20 16:13 05/09/20 16:31 Tylenol Tablet PO 650 mg Q4H PRN Administration Mild Pain (1-3) or Fever Hydrocodone Bitart/Acetaminophen 1 tab 05/17/20 13:00 [place] 10-325 Mg PO Q4H PRN Pain Rated 4-6 Calcium Polycarbophil 1,250 mg 05/08/20 17:00 05/17/20 09:59
[2020-05-17] MEDS: HYDROmorphone HCL (*CRX) 2 MG TABLET PO ×2 (14:46→20:47)
[2020-05-17 16:24] LABS: Glucose Point of Care 203 (65-105)
[2020-05-17 18:28] LABS: Glucose Point of Care 196 (65-105)
[2020-05-17] MEDS: MELATONIN 5 MG TABLET PO (20:38)
[2020-05-17 21:28] VITALS: BP 119/71; PULSE 74; RESP 16; TEMP 37.3; O2SAT 99
[2020-05-17 22:44] LABS: Glucose Point of Care 211 (65-105)
[2020-05-18 05:36] LABS: Basophils Percent Auto 0.4 % (0.2-1.2); Eosinophils Absolute Auto 0.2 K/mm3 (0-0.3); Eosinophils Percent Auto 1.7 % (0-4.4); Hematocrit 39.4 % (42.0-52.0); Hemoglobin 13.5 g/dL (14.0-18.0); Immature Granulocyte Absolute 0.08 K/mm3 (0.00-0.031); Immature Granulocyte Percent A 0.9 % (0-0.5); Lymphocytes Absolute Auto 1.65 K/mm3 (0.9-3.2); Lymphocytes Percent Auto 18.2 % (18.3-44.2); Mean Corpuscular HGB Conc 34.3 g/dl (32-36); Mean Corpuscular Hemoglobin 29.5 pg (26-34); Mean Platelet Volume 9.7 fl (7.4-10.4); Monocytes Absolute Auto 0.6 K/mm3 (0.1-0.6); Monocytes Percent Auto 6.9 % (2.6-8.5); Neutrophils Absolute Auto 6.5 K/mm3 (1.3-6.7); Neutrophils Percent Auto 71.9 % (45.5-73.1); Platelet Count Result 308 k/mm3 (150-375); Red Blood Count 4.58 M/mm3 (4.6-6.20); Red Cell Distribution Width 12.3 % (11.5-14.5); White Blood Count 9.1 K/mm3 (4.5-10.0)
[2020-05-18] MEDS: HYDROmorphone HCL (*CRX) 2 MG TABLET PO ×3 (05:42→17:40)
[2020-05-18] MEDS: INSULIN HUMAN ISOPHAN/REGULAR 70/30 (*BKC) 100 UNITS/ML 10 UNITS SUB-Q ×2 (05:43→17:53)
[2020-05-18 05:48] LABS: Glucose Point of Care 186 (65-105)
[2020-05-18 06:01] LABS: Anion Gap 8 mmol/L (8-16); Blood Urea Nitrogen 17 mg/dL (9-20); Calcium 8.9 mg/dL (8.4-10.2); Carbon Dioxide 28 mmol/L (22-30); Chloride 98 mmol/L (98-107); Estimated CRCL calculation 68 ml/min; Estimated Glomerular Filt Rate > 60; Glucose 174 mg/dL (75-110); Potassium 4.3 mmol/L (3.4-5.0); Sodium 134 mmol/L (137-145)
[2020-05-18 07:50] LABS: Glucose Point of Care 157 (65-105)
[2020-05-18 08:00] VITALS: PULSE 74; RESP 16; O2SAT 97
--- NOTE | 2020-05-18 09:25 | PM.PNORT ---
Progress Note: A&P Assessment and Plan (1) Necrotizing fasciitis of ankle and foot: Code(s): M72.6 - Necrotizing fasciitis Status: Acute Assessment and Plan: Postoperative day 6. Left foot debridement. Wound VAC dressing yesterday. No new changes with the foot. Fourth toe still with venous stasis and poor arterial flow. Continued pain Left foot. Better with adjustment medication. We will continue to monitor. plan for wound VAC dressing change Tomorrow. definitive treatment plans after wound VAC change. Plan for continued IV antibiotics until then. 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 No new complaints. Exam Const: General: healthy appearing; No in distress or confusion Orientation/consciousness: patient oriented x3 and No confusion HENMT: Head: normal to inspection, normocephalic and atraumatic Eyes: Conjunctivae: conjunctivae normal Sclera: sclerae normal Resp: Effort & Inspection: normal respiratory effort and no audible wheezes Neuro: General: patient oriented x3 and No confusion Extrem: Other: left foot Wound VAC in place. Hallux, 2nd, 3rd and 5th toes with good capillary refill. Fourth toe remains dusky with sluggish to absent refill, continued to worsen from previous exam. No extension of erythema, ecchymosis or skin changes above the ankle. Leg and knee benign. Psych: Affect: normal affect Objective Data Vital Signs Vital Signs: Vital Signs - 24 hr 05/17/20 21:28 Temperature 99.1 F Pulse Rate 74 Respiratory Rate 16 Blood Pressure 119/71 Pulse Oximetry 99 Intake/Output Intake/Output: Intake & Output 1005/16/20 05/17/20 05/18/20 23:59 23:59 23:59 23:59 Intake Total 2570 1680 1330 100 Output Total 6103 8841 4757 067 [place] -0973 -1445 -120 -128 Meds/Results Medications: Active Medications Generic Name Dose Route Start Last Admin Trade Name Freq PRN Reason Stop Dose Admin Acetaminophen 650 mg 05/09/20 16:13 05/09/20 16:31 Tylenol Tablet PO 650 mg Q4H PRN Administration Mild Pain (1-3) or Fever Hydrocodone Bitart/Acetaminophen 1 tab 05/17/20 13:00 [place] 10-325 Mg PO Q4H PRN Pain Rated 4-6 Calcium Polycarbophil 1,250 mg 05/08/20 17:00 05/17/20 18:37 Fiber Con PO 1,250 mg BID KAYCE Administration Docusate Sodium 100 mg 05/13/20 11:25 Colace Capsule PO BID PRN Constipation Enoxaparin Sodium 40 mg 05/08/20 10:30 05/17/20 10:09 Lovenox SUB-Q 40 mg DAILY KAYCE Administration Famotidine 20 mg 05/07/20 21:00 05/17/20 20:38 Pepcid Iv IV PUSH 20 mg Q12HR KAYCE Administration Gabapentin 300 mg 05/08/20 13:00 05/17/20 18:37 Neurontin PO 300 mg TID KAYCE Administration Hydromorphone HCl 2 mg 05/17/20 12:59 05/18/20 05:42 Dilaudid Tablet PO 2 mg Q4H PRN Administration Pain Rated 7-10 Piperacillin/Tazobactam/Dextrose 3.375 gm in 50 mls @ 100 mls/hr 05/08/20 00:00 05/18/20 06:17 Zosyn 3.375 Gm/D5w 50ml Pm IVPB Infused Q6HR KAYCE Infusion Insulin Human Isoph/Insulin Regular 10 units 05/09/20 16:30 05/18/20 05:43 SUB-Q 10 units BIDAC KAYCE Administration Magnesium Hydroxide 30 ml 05/12/20 10:59 Mi
[2020-05-18] MEDS: ENOXAPARIN 40 MG/0.4 ML SYRINGE SUB-Q (09:51)
[2020-05-18] MEDS: metFORMIN HCL 500 MG TABLET PO ×2 (09:51→19:39)
[2020-05-18] MEDS: GABAPENTIN 300 MG CAPSULE PO ×3 (09:51→17:35)
[2020-05-18] MEDS: calcium polycarbophiL 625 MG TABLET 1250 MG PO ×2 (09:52→17:35)
[2020-05-18] MEDS: FAMOTIDINE 20 MG/2 ML VIAL IV PUSH ×2 (09:53→20:19)
[2020-05-18 10:36] VITALS: O2SAT 97
--- NOTE | 2020-05-18 10:49 | PM.IMPN ---
Progress Note: A&P Assessment and Plan (1) Acute osteomyelitis of left foot: Code(s): M86.172 - Other acute osteomyelitis, left ankle and foot Status: Acute Assessment and Plan: -----s/p debridement of necrotizing fasciitis day 6. Pt blood cultures are negative so far and no additional fever has been noted. At this time, continue Zosyn and the plan is to continue this until tomorrow. Likely change to oral tomorrow. Pt is worried about affording them but will look on [employer] for financial help. Patient is unable to afford IV antibiotics outpatient, infectious disease on board and I appreciate his further recommendations. Wound vac intact and Dr. Logan plans to change it tomorrow. (2) Sepsis: Qualifiers: Sepsis acute organ dysfunction status: unspecified Sepsis type: sepsis due to unspecified organism Qualified Code(s): A41.9 - Sepsis, unspecified organism Code(s): A41.9 - Sepsis, unspecified organism Status: Acute Assessment and Plan: ------ resolved .Evident on arrival by leukocytosis, fever and tachycardia. Secondary to osteomyelitis. Wound cultures growing group B strep, Staph aureus, and prevotella bivia. New cx from surgery have been sent and so far growing group b strep and peptostreptococcus. (3) Uncontrolled diabetes mellitus: Qualifiers: Diabetes mellitus type: type 2 Glycemic state: with hyperglycemia Qualified Code(s): E11.65 - Type 2 diabetes mellitus with hyperglycemia Code(s): E11.65 - Type 2 diabetes mellitus with hyperglycemia Status: Acute Assessment and Plan: -----Last glucose 157. Patient is historically noncompliant, has not seen a doctor in years and quit taking diabetes medications 3 years ago. Hgb A1c is 8.9%. He has been started on metformin and humulin 70/30 at 10u BID. Pt is doing well with this and has been seen by DM educator. (4) Chronic constipation: Code(s): K59.09 - Other constipation Status: Acute Assessment and Plan: ------Patient has been started on BID MiraLax and FiberCon now PRN as he was having too many stools prior. (5) Insomnia: Qualifiers: Insomnia type: unspecified Qualified Code(s): G47.00 - Insomnia, unspecified Code(s): G47.00 - Insomnia, unspecified Status: Acute Assessment and Plan: -----Continue Melatonin. Subjective Date/time seen: 05/18/20 10:49 Interval history: Pt is a 64-year-old male here for osteomyelitis. Patient was seen today and we discussed the game plan so far. He is agreeable. He thinks he is feeling better and has no complaints. Pt denies nausea, vomiting, fevers, chills, constipation, diarrhea, chest pain, sob, or abdominal pain. Eating and drinking well. Exam Narrative: Exam Narrative: General: Well developed well nourished patient in NAD HEENT: normocephalic Neck: supple Neuro: Alert and oriented x4 CV:RRR Resp:CTA Abd: Soft, non distended. No pain to palpation. Positive bowel sounds Extremities: Left foot with wound vac intact. Some extensive bruising, necrosis and dark purple 4th toe. Objective Data Vital Signs Vital Signs: Vital Signs - 24 hr 05/17/20 21:28 05/18/20 10:36 Temperature 99.1 F Pulse Rate 74 Respiratory Rate 16 Blood Pressure 119/71 Pulse Oximetry 99 97 Intake/Output Intake/Output: Intake & Output 05/15/20 05/16/20 05/17/20 05/18/20 23:59 23:59 23:59 23:59 Intake Total 2570 1680 1330 100 Output Total 5000 3125 1450 510 Balance -2430 -1445 -120 -410 Meds/Results Medications: Active Medications Generic Name Dose Route Start Last Admin Trade Name Freq PRN Reason Stop Dose Admin Acetaminophen 650 mg 05/09/20 16:13 05/09/20 16:31 Tylenol Tablet PO 650 mg Q4H PRN Administration Mild Pain (1-3) or Fever Hydrocodone Bitart/Acetaminophen 1 tab 05/17/20 13:00 [place] 10-325 Mg PO Q4H PRN Pain Rated 4-6 C
--- NOTE | 2020-05-18 16:09 | PC.NURSE ---
1045 added tape to patient s left foot wound vac dressing. To obtain seal.
--- NOTE | 2020-05-18 16:11 | PC.NURSE ---
1100 wound vac continues to alarm. Complete seal not obtained. Turned wound vac off and clamped wound vac tubing. Wrapped left foot with kerlix. Informed patient that Dr. Cotton voiced that it will be redressed tomorrow. Patient acknowledged understanding.
[2020-05-18 18:01] LABS: Glucose Point of Care 189 (65-105)
[2020-05-18 18:19] LABS: Glucose Point of Care 192 (65-105)
[2020-05-18 19:58] VITALS: BP 131/68; PULSE 83; RESP 14; TEMP 36.4; O2SAT 100
[2020-05-18] MEDS: MELATONIN 5 MG TABLET PO (20:19)
[2020-05-18] MEDS: HYDROcodone/acetaminophen (*CRX) 10-325 MG TABLET 1 TAB PO (20:19)
[2020-05-18 22:38] LABS: Glucose Point of Care 193 (65-105)
[2020-05-19] MEDS: INSULIN HUMAN ISOPHAN/REGULAR 70/30 (*BKC) 100 UNITS/ML 10 UNITS SUB-Q (05:42)
[2020-05-19] MEDS: HYDROmorphone HCL (*CRX) 2 MG TABLET PO ×2 (05:45→10:29)
[2020-05-19 05:48] LABS: Hematocrit 37.4 % (42.0-52.0); Hemoglobin 12.7 g/dL (14.0-18.0); Mean Corpuscular Hemoglobin 29.4 pg (26-34); Mean Corpuscular Volume 86.6 fl (80-100); Mean Platelet Volume 9.7 fl (7.4-10.4); Platelet Count Result 348 k/mm3 (150-375); Red Blood Count 4.32 M/mm3 (4.6-6.20); Red Cell Distribution Width 12.2 % (11.5-14.5); White Blood Count 8.2 K/mm3 (4.5-10.0)
[2020-05-19 06:01] VITALS: BP 128/66; PULSE 67; RESP 12; TEMP 36.5; O2SAT 99
[2020-05-19 06:02] LABS: Anion Gap 4 mmol/L (8-16); Blood Urea Nitrogen 17 mg/dL (9-20); Carbon Dioxide 33 mmol/L (22-30); Chloride 98 mmol/L (98-107); Estimated CRCL calculation 57 ml/min; Estimated Glomerular Filt Rate > 60; Glucose 200 mg/dL (75-110); Potassium 4.4 mmol/L (3.4-5.0); Sodium 135 mmol/L (137-145)
[2020-05-19 06:16] LABS: Glucose Point of Care 171 (65-105)
--- NOTE | 2020-05-19 07:38 | PC.NURSE ---
Spoke with Susanne in the wound clinic in regards to the wound vac and it not being on, foot only wrapped in gauze kerlex. Susanne stated she would have stoney look into what needs to be done.
[2020-05-19 07:47] LABS: Glucose Point of Care 176 (65-105)
[2020-05-19] MEDS: ENOXAPARIN 40 MG/0.4 ML SYRINGE SUB-Q (08:26)
[2020-05-19] MEDS: metFORMIN HCL 500 MG TABLET PO (08:26)
[2020-05-19] MEDS: calcium polycarbophiL 625 MG TABLET 1250 MG PO (08:26)
[2020-05-19] MEDS: GABAPENTIN 300 MG CAPSULE PO ×2 (08:27→12:22)
[2020-05-19] MEDS: FAMOTIDINE 20 MG/2 ML VIAL IV PUSH (08:27)
[2020-05-19 11:44] LABS: Glucose Point of Care 109 (65-105)
--- NOTE | 2020-05-19 12:15 | WPDINFPN2 ---
Subjective Date/time seen: 05/19/20 12:15 Interval history: unavailable to be seen, in or Objective Data Vital Signs Vital Signs: Vital Signs - 24 hr 05/18/20 19:58 05/19/20 06:01 Temperature 36.4 C 36.5 C Pulse Rate 83 67 Respiratory Rate 14 12 Blood Pressure 131/68 128/66 Pulse Oximetry 100 99 Intake/Output Intake/Output: Intake & Output 05/16/20 05/17/20 05/18/20 05/19/20 23:59 23:59 23:59 23:59 Intake Total 1680 1330 1280 550 Output Total 3125 1450 2110 1670 [facility] -1445 -120 -830 -1120 Meds/Results Medications: Active Medications Generic Name Dose Route Start Last Admin Trade Name Freq PRN Reason Stop Dose Admin Acetaminophen 650 mg 05/09/20 16:13 05/09/20 16:31 Tylenol Tablet PO 650 mg Q4H PRN Administration Mild Pain (1-3) or Fever Hydrocodone Bitart/Acetaminophen 1 tab 05/17/20 13:00 05/18/20 20:19 [place] 10-325 Mg PO 1 tab Q4H PRN Administration Pain Rated 4-6 Calcium Polycarbophil 1,250 mg 05/08/20 17:00 05/19/20 08:26 Fiber Con PO 1,250 mg BID KAYCE Administration Docusate Sodium 100 mg 05/13/20 11:25 Colace Capsule PO BID PRN Constipation Enoxaparin Sodium 40 mg 05/08/20 10:30 05/19/20 08:26 Lovenox SUB-Q 40 mg DAILY KAYCE Administration Famotidine 20 mg 05/07/20 21:00 05/19/20 08:27 Pepcid Iv IV PUSH 20 mg Q12HR KAYCE Administration Gabapentin 300 mg 05/08/20 13:00 05/19/20 08:27 Neurontin PO 300 mg TID KAYCE Administration Hydromorphone HCl 2 mg 05/17/20 12:59 05/19/20 10:29 Dilaudid Tablet PO 2 mg Q4H PRN Administration Pain Rated 7-10 Piperacillin/Tazobactam/Dextrose 3.375 gm in 50 mls @ 100 mls/hr 05/08/20 00:00 05/19/20 06:18 Zosyn 3.375 Gm/D5w 50ml Pm IVPB Infused Q6HR KAYCE Infusion Insulin Human Isoph/Insulin Regular 10 units 05/09/20 16:30 05/19/20 05:42 SUB-Q 10 units BIDAC KAYCE Administration Magnesium Hydroxide 30 ml 05/12/20 10:59 Milk Of Magnesia PO BID PRN Constipation Melatonin 5 mg 05/08/20 21:00 05/18/20 20:19 Melatonin PO 5 mg HS KAYCE Administration Metformin HCl 500 mg 05/09/20 17:00 05/19/20 08:26 Glucophage PO 500 mg BIDWM KAYCE Administration Ondansetron HCl 4 mg 05/07/20 18:38 05/12/20 12:28 Zofran Inj IV PUSH 4 mg Q4H PRN Administration Nausea Polyethylene Glycol 17 gm 05/13/20 11:25 Miralax PO BID PRN Constipation Radiology Results: ITS Impressions Foot X-Ray 05/07/20 17:42 IMPRESSION: 1. Plantar soft tissue ulceration with soft tissue gas tracking proximally in the lateral foot and findings suggestive of osteomyelitis involving the heads of the fourth and fifth metatarsals and bases of the fourth and fifth proximal phalanges. Chest X-Ray 05/07/20 17:47 IMPRESSION: 1. No acute cardiopulmonary abnormality. Foot MRI 05/08/20 14:02 IMPRESSION: 1. No evidence of osteomyelitis. 2. Cellulitis of the foot. Soft tissue gas may be from the plantar ulcer. Necrotizing fasciitis cannot be excluded. Ankle Brachial Index 05/08/20 15:50 IMPRESSION: 1. Normal ankle-brachial indices. Labs Labs: Laboratory Results - last 24 hr 05/18/20 05/18/20 05/18/20 17:47 18:17 20:14 WBC RBC Hgb Hct MCV MCH MCHC RDW Plt Count MPV Sodium Potassium Chloride Carbon Dioxide Anion Gap BUN Creatinine Estim Creat Clear Calc Estimated GFR Glucose POC Capillary Glucose 189 H 192 H 193 H Calcium 05/19/20 05/19/20 05/19/20 05:23 05:23 05:40 WBC 8.2 RBC 4.32 L Hgb 12.7 L Hct 37.4 L MCV 86.6 MCH 29.4 MCHC 34.0 RDW 12.2 Plt Count 348 MPV 9.7 Sodium 135 L Potassium 4.4 Chloride 98 Carbon Dioxide 33 H Anion Gap 4 L BUN 17 Creatinine 1.20 Estim Creat Clear Calc 57 Estimated GFR > 60 Glucose 200 H P
--- NOTE | 2020-05-19 12:25 | WPDINFPN2 ---
Progress Note: A&P Assessment and Plan (1) Acute osteomyelitis of left foot: Code(s): M86.172 - Other acute osteomyelitis, left ankle and foot Status: Acute Assessment and Plan: 1. Acute OM of L 4th and 5th MTs clinically, though not by operative findings. 2. Necrotizing fasciitis of foot, POD #7. Due to Grp B Strep., Prevotella, and YAHIR. 3. DM, poor control. 3. ASPVD, with borderline normal ROSIE on left. REC PipTazo #12, stop and place on Augmentin through 06/17. Ok discharge. 4th toe may not be salvageable. He has no insurance benefits for outpatient medication including po/IV. Subjective Date/time seen: 05/19/20 12:25 Interval history: no new complaints Exam Narrative: Exam Narrative: afebrile Const: General: no acute distress Resp: Effort & Inspection: normal respiratory effort Auscultation: clear to auscultation bilaterally Cardio: Rate: regular rate Rhythm: regular rhythm Heart sounds: no murmurs GI: Inspection: non-distended GI Palp: Yes Soft to palpation and No Tenderness to palpation present (GI) Skin: General skin exam: normal color and no rashes or lesions noted Extrem: Other: 4th toe Left with cyanosis, early gangrene at distal phalanx Objective Data Vital Signs Vital Signs: Vital Signs - 24 hr 05/18/20 19:58 05/19/20 06:01 Temperature 36.4 C 36.5 C Pulse Rate 83 67 Respiratory Rate 14 12 Blood Pressure 131/68 128/66 Pulse Oximetry 100 99 Intake/Output Intake/Output: Intake & Output 05/16/20 05/17/20 05/18/20 05/19/20 23:59 23:59 23:59 23:59 Intake Total 1680 1330 1280 550 Output Total 3125 1450 2110 1670 [facility] -1445 -120 -830 -1120 Meds/Results Medications: Active Medications Generic Name Dose Route Start Last Admin Trade Name Freq PRN Reason Stop Dose Admin Acetaminophen 650 mg 05/09/20 16:13 05/09/20 16:31 Tylenol Tablet PO 650 mg Q4H PRN Administration Mild Pain (1-3) or Fever Hydrocodone Bitart/Acetaminophen 1 tab 05/17/20 13:00 05/18/20 20:19 [place] 10-325 Mg PO 1 tab Q4H PRN Administration Pain Rated 4-6 Calcium Polycarbophil 1,250 mg 05/08/20 17:00 05/19/20 08:26 Fiber Con PO 1,250 mg BID KAYCE Administration Docusate Sodium 100 mg 05/13/20 11:25 Colace Capsule PO BID PRN Constipation Enoxaparin Sodium 40 mg 05/08/20 10:30 05/19/20 08:26 Lovenox SUB-Q 40 mg DAILY KAYCE Administration Famotidine 20 mg 05/07/20 21:00 05/19/20 08:27 Pepcid Iv IV PUSH 20 mg Q12HR KAYCE Administration Gabapentin 300 mg 05/08/20 13:00 05/19/20 12:22 Neurontin PO 300 mg TID KAYCE Administration Hydromorphone HCl 2 mg 05/17/20 12:59 05/19/20 10:29 Dilaudid Tablet PO 2 mg Q4H PRN Administration Pain Rated 7-10 Piperacillin/Tazobactam/Dextrose 3.375 gm in 50 mls @ 100 mls/hr 05/08/20 00:00 05/19/20 12:22 Zosyn 3.375 Gm/D5w 50ml Pm IVPB 100 mls/hr Q6HR KAYCE Administration Insulin Human Isoph/Insulin Regular 10 units 05/09/20 16:30 05/19/20 05:42 SUB-Q 10 units BIDAC KAYCE Administration Magnesium Hydroxide 30 ml 05/12/20 10:59 Milk Of Magnesia PO BID PRN Constipation Melatonin 5 mg 05/08/20 21:00 05/18/20 20:19 Melatonin PO 5 mg HS KAYCE Administration Metformin HCl 500 mg 05/09/20 17:00 05/19/20 08:26 Glucophage PO 500 mg BIDWM KAYCE Administration Ondansetron HCl 4 mg 05/07/20 18:38 05/12/20 12:28 Zofran Inj IV PUSH 4 mg Q4H PRN Administration Nausea Polyethylene Glycol 17 gm 05/13/20 11:25 Miralax PO BID PRN Constipation Radiology Results: ITS Impressions Foot X-Ray 05/07/20 17:42 IMPRESSION: 1. Plantar soft tissue ulceration with soft tissue gas tracking proximally in the lateral foot and findings suggestive of osteomyelitis involving the heads of the fourth and fifth metatarsals and bases of the fourth and fifth proximal phalanges. Chest X-Ray 05/07/20 17:
--- NOTE | 2020-05-19 13:19 | PM.DS ---
DS: Admitting Diagnosis Admitting Diagnosis Admitting Diagnosis: left foot wound DS: Discharge Diagnosis Discharge Diagnosis (1) Acute osteomyelitis of left foot: Code(s): M86.172 - Other acute osteomyelitis, left ankle and foot Status: Acute Assessment and Plan: ----- underwent debridement 05/12 and wound cultures grew peptostreptococcus and group B strep. Blood cultures negative. Patient received 7 days worth of Zosyn and is going home on a month's worth of Augmentin. Wound vac intact and she plans to follow-up with the wound center (2) Sepsis: Qualifiers: Sepsis acute organ dysfunction status: unspecified Sepsis type: sepsis due to unspecified organism Qualified Code(s): A41.9 - Sepsis, unspecified organism Code(s): A41.9 - Sepsis, unspecified organism Status: Acute Assessment and Plan: ------ resolved .Evident on arrival by leukocytosis, fever and tachycardia. Secondary to osteomyelitis. Wound cultures growing group B strep, Staph aureus, and prevotella bivia on initial swab. (3) Uncontrolled diabetes mellitus: Qualifiers: Diabetes mellitus type: type 2 Glycemic state: with hyperglycemia Qualified Code(s): E11.65 - Type 2 diabetes mellitus with hyperglycemia Code(s): E11.65 - Type 2 diabetes mellitus with hyperglycemia Status: Acute Assessment and Plan: -----Last glucose 109. Patient is historically noncompliant, has not seen a doctor in years and quit taking diabetes medications 3 years ago. Hgb A1c is 8.9%. He has been started on metformin and humulin 70/30 at 10u BID. He was given a glucometer and orders for new supplies. Pt is doing well with this and has been seen by DM educator. (4) Chronic constipation: Code(s): K59.09 - Other constipation Status: Acute Assessment and Plan: ------continue outpatient treatment as needed (5) Insomnia: Qualifiers: Insomnia type: unspecified Qualified Code(s): G47.00 - Insomnia, unspecified Code(s): G47.00 - Insomnia, unspecified Status: Acute DS: Summary Hospital Course Reason for hospitalization: Diabetic foot wound Hospital Course: Patient is a 64-year-old male who has uncontrolled diabetes who presented emergency room for a foot wound. Vitals in the ER were temperature 37.9? C, pulse 128, respiratory rate 18, blood pressure 127/61, pulse ox 98 on room air. His white blood cell count was 14.9 and the patient met sepsis criteria. X-ray in the ER showed plantar soft tissue ulceration with soft tissue gas tracking proximally with findings suggestive osteomyelitis. He was started on vancomycin and Zosyn and was admitted to the hospitalist service. He underwent a debridement on 05/12/20 and did well. His blood cultures were negative x2. Infectious disease was consulted and recommended 7 days worth of IV Zosyn and 1 month's worth of Augmentin on discharge since the patient did not have insurance. A wound VAC was applied and wound care was set up. The patient was also given insulin and diabetic supplies. Overall, the patient had improvement in his stay and was ready for discharge. He was educated about the worrisome signs and symptoms to come back to emergency room for and was discharged in stable condition. Please see above for further details of his stay. Status at Discharge Functional status at discharge: independent ambulation Overall status at discharge: patient is progressing back to baseline Time Spent with Patient Time attestation: Total time spent providing and/or coordinating discharge services:35 min Time spent: Greater than 30 minutes Exam Narrative: Exam Narrative: General: Well developed well nourished patient in NAD HEENT: normocephalic Neck: supple Neuro: Alert and oriented x4 CV:RRR Resp:CTA Abd: Soft, non distended. No pain to palpation. Positive bowel sounds Extremities: Left foot with wound vac intact
--- NOTE | 2020-05-19 13:19 | PM.PNORT ---
Progress Note: A&P Assessment and Plan (1) Necrotizing fasciitis of ankle and foot: Code(s): M72.6 - Necrotizing fasciitis Status: Acute Assessment and Plan: POD #7: Left foot debridement Wound VAC dressing changed today. No worsening of dimensions. 4th ray dusky, no capillary refill. Continue NWB LLE. Wound VAC. Changes 2x weekly in the [facility] wound clinic. Home on oral antibiotics per ID. Pain control. Follow up Tuesday as an outpatient. Patient aware of likely need for further surgical intervention which will be determine as an outpatient by Dr. Cotton. 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 (3) Cellulitis of left foot: Code(s): L03.116 - Cellulitis of left lower limb Status: Acute Subjective Subjective Date/Time Seen: 05/19/20 13:19 Post Op day: 7 Interval history: No new complaints. Wants to go home. Review of Systems Review of Systems: All systems reviewed & are unremarkable except as noted in HPI and below Constitutional: Constitutional: Reports as per HPI, Reports difficulty sleeping, Reports fever(s) and Reports night sweats Cardiovascular: Cardiovascular: Reports as per HPI, Denies chest pain and Denies lightheadedness Respiratory: Respiratory: Denies cough, Denies dyspnea and Denies wheezing Musculoskeletal: Musculoskeletal: Reports arthralgias (left foot ), Reports joint swelling (left foot ), Reports numbness (b/l feet ) and Reports tingling (b/l feet ) Psychiatric: Psychiatric: Reports anxiety Exam Const: General: healthy appearing; No in distress or confusion Orientation/consciousness: patient oriented x3 and No confusion HENMT: Head: normal to inspection, normocephalic and atraumatic Eyes: Conjunctivae: conjunctivae normal Sclera: sclerae normal Resp: Effort & Inspection: normal respiratory effort and no audible wheezes Neuro: General: patient oriented x3 and No confusion Extrem: Other: Left foot with dusky/purple toe, no refill. Hallux, 2nd, 3rd and 5th toes with good capillary refill. Large wound on the dorsal lateral aspect of the left foot. See wound nurse notes for dimensions. No extension of erythema, ecchymosis or skin changes above the ankle. Leg and knee benign. Psych: Affect: normal affect Objective Data Vital Signs Vital Signs: Vital Signs - 24 hr 05/18/20 19:58 05/19/20 06:01 Temperature 36.4 C 36.5 C Pulse Rate 83 67 Respiratory Rate 14 12 Blood Pressure 131/68 128/66 Pulse Oximetry 100 99 Intake/Output Intake/Output: Intake & Output 05/16/20 05/17/20 05/18/20 05/19/20 23:59 23:59 23:59 23:59 Intake Total 1680 1330 1280 791 Output Total 3125 1450 2110 1670 [facility] -1445 -120 -830 -879 Meds/Results Medications: Active Medications Generic Name Dose Route Start Last Admin Trade Name Freq PRN Reason Stop Dose Admin Acetaminophen 650 mg 05/09/20 16:13 05/09/20 16:31 Tylenol Tablet PO 650 mg Q4H PRN Administration Mild Pain (1-3) or Fever Hydrocodone Bitart/Acetaminophen 1 tab 05/17/20 13:00 05/18/20 20:19 [place] 10-325 Mg PO 1 tab Q4H PRN Administration Pain Rated 4-6 Amoxicillin/Clavulanate Potassium 1 tablet 05/19/20 21:00 Augmentin 500-125 Mg Tab PO 06/17/20 21:01 Q8HR KAYCE Calcium Polycarbophil 1,250 mg 0
--- NOTE | 2020-06-05 08:40 | PC.NURSE ---
Blood cx are negative.
== END 2020-05-19 14:48 | disposition home or self-care (01) | DRG 853 ==
LOC: ANHED 18:43 → ANH3MED 19:48
PROVIDERS: Emergency Medicine; Emergency Medicine Emergency Medical Services; Nurse Practitioner Family; Orthopaedic Surgery; Physician Assistant; Admitting Provider Family Medicine; Emergency Provider Emergency Medicine; PCP Family Medicine Adolescent Medicine; Visit Provider Physician Assistant
PROC: 0KBW0ZZ Excision of Left Foot Muscle, Open Approach (ICD-10-PCS; principal; 2020-05-12 09:30)
DX: A41.9 Sepsis, unspecified organism (principal); M72.6 Necrotizing fasciitis; M86.172 Other acute osteomyelitis, left ankle and foot; L03.116 Cellulitis of left lower limb; L97.523 Non-pressure chronic ulcer of other part of left foot with necrosis of muscle; D69.6 Thrombocytopenia, unspecified; E11.69 Type 2 diabetes mellitus with other specified complication; E11.621 Type 2 diabetes mellitus with foot ulcer; E11.65 Type 2 diabetes mellitus with hyperglycemia; E11.42 Type 2 diabetes mellitus with diabetic polyneuropathy; E11.51 Type 2 diabetes mellitus with diabetic peripheral angiopathy without gangrene; I70.209 Unspecified atherosclerosis of native arteries of extremities, unspecified extremity; I10 Essential (primary) hypertension; K59.09 Other constipation; G47.00 Insomnia, unspecified; N52.9 Male erectile dysfunction, unspecified; Z28.21 Immunization not carried out because of patient refusal; Z91.14 Patient's other noncompliance with medication regimen
CPT/HCPCS: 36415; 71045; 73630; 73720; 80048; 80053; 80076; 81001; 82010; 82565; 82948; 83036; 83605; 83735; 84100; 85025; 85027; 85055; 85610; 85730; 86140; 87040; 87070; 87075; 87076; 87147; 87185; 87186; 87205; 87635; 93005; 93922; 96365; 96375; 99285; A9270; A9577; C9803; J0131; J1100; J1650; J1815; J2250; J2270; J2370; J2405; J2543; J2704; J3010; J3370; J3480; J7030; J7120; U0003

== ENCOUNTER 2020-06-13 02:45 | Outpatient (CLI) | payer MEDICARE, SELFPAY ==
[2020-06-13 18:02] LABS: SARS-CoV-2 RNA PCR Negative
== END 2020-06-13 02:46 | disposition home or self-care (01) ==
LOC: ANHCOVIDDT 02:45
PROVIDERS: PCP Family Medicine Adolescent Medicine; Visit Provider Orthopaedic Surgery
DX: Z01.812 Encounter for preprocedural laboratory examination (principal); Z20.828 Contact with and (suspected) exposure to other viral communicable diseases
CPT/HCPCS: 87635; C9803; U0003

== ENCOUNTER 2020-06-16 01:30 | Day surgery (SDC) | payer MEDICARE, SELFPAY ==
[2020-06-10 08:43] VITALS: BMI 29.4
--- NOTE | 2020-06-13 15:31 | WPDANESEPPF ---
Anes - Initial Pre Proc Eval Procedure: Operation Date: 06/16/20 13:00 Proposed Procedures p Debridement Left Foot Ulcer - Liam Cotton MD s Left Fourth Toe Ray Amputation with Graft Application - Liam Cotton MD Date/Time: 06/13/20 15:31 Surgeon: Liam Cotton MD Pre Op Diagnosis: left foot necrotic 4th ray, necrotizing wound, Patient Data Age: 64 Gender: M Height: 1.78 m Weight: 92.99 kg Allergies Allergy/AdvReac Type Severity Reaction Status Date / Time Dust Allergy Mild ALLERGY Uncoded 06/16/20 09:09 SYMPTOMS Home Medications Medication Instructions Recorded Confirmed Type amoxicillin-pot clavulanate 1 tablet PO Q8HR 29 Days #87 tablet 05/19/20 06/16/20 Rx [Augmentin] blood sugar diagnostic [OneTouch #30 each NS 05/19/20 Rx Verio test strips] blood-glucose meter [OneTouch #1 each NS 05/19/20 Rx Verio Flex meter] insulin NPH and regular human 10 units SUBCUT BIDAC 30 Days #3 ml 05/19/20 06/16/20 Rx [Novolin 70/30 U-100 Insulin] insulin syringe,safetyneedle #30 each NS 05/19/20 Rx lancets [OneTouch Delica Plus #30 each NS 05/19/20 Rx Lancet] hydrocodone 5 mg-acetaminophen 325 1 - 2 tablet PO Q6H PRN #30 tablet 05/30/20 06/16/20 Rx mg tablet metformin 500 mg tablet 500 mg PO BIDWM #30 tablet 05/30/20 06/16/20 Rx gabapentin [Neurontin] 600 mg PO TID 06/10/20 06/16/20 History Patient hx anesthesia problems: none Family hx anesthesia problems: none PMFSH Past Medical History Medical History (Updated 06/13/20 @ 15:32 by Reed Webb MD) Cellulitis of left foot Chronic constipation Diabetes mellitus Diabetic foot ulcer associated with diabetes mellitus due to underlying condition Diabetic peripheral neuropathy Group beta Strep positive Hypertension Impotence Necrotizing fasciitis of ankle and foot Noncompliance with medication regimen Overweight (BMI 25.0-29.9) Peripheral artery disease Uncontrolled diabetes mellitus Surgical History Surgical History H/O arthroscopy of right knee Family History Family History Father , age 62 Myocardial infarct Lung disease Mother , age 73 Lung disease Sibling , age 67 Lung disease Social History Social History Social History: The patient currently lives at home with his significant other. 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 He has since not been working. Smoking status: Never smoker Second hand tobacco smoke exposure: Yes Alcohol intake: current Drinks per week: 3 Substance use: never Substance use type: does not use Additional living arrangements comments: He currently lives with his significant other in [place], [place]. he is not Additional occupation/education comments: see above Gender identity (if verbalized by the patient): Male Spiritual care concerns: No Agree to blood products: Yes Anes - Eval Final PreProcedure Day of Procedure 06/13/20 15:31 Patient weight: overweight Heart: regular rate and rhythm Lungs: clear to auscultation and normal air movement Airway: Mallampati scale class II Neurological: alert and oriented Last oral intake: >/= 8 hours ASA classification: III Emergent: no Anesthetic plan: proceed Anesthesia type and monitoring: general GIVS and LMA Informed Consent: The patient's anesthetic plan and its attendant risks and benefits were discussed with the patient/family/POA. Questions were solicited and answers provided to the satisfaction of the patient/family/POA.
[2020-06-16] VITALS (9 sets, daily range): BP systolic 115–141; BP diastolic 66–85; PULSE 84–108; RESP 12–18; TEMP 36.1–36.3; O2SAT 97–100; BMI 28.1
--- NOTE | 2020-06-16 07:17 | WPDHPUPDATE1 ---
History and Physical Update Update Date/Time: 06/16/20 07:17 History and Physical has been reviewed, including an updated exam of the patient. There are NO changes in the patient's condition.Covid test negative Risks, benefits, and alternatives have been discussed and questions answered. Patient agrees to proceed with procedure.
[2020-06-16 09:10] LABS: Glucose Point of Care 136 (65-105)
[2020-06-16] MEDS: LACTATED RINGERS 1,000 ML 30 ML IV CONT ×2 (09:20→12:25)
[2020-06-16] MEDS: KETOROLAC 15 MG/ML VIAL (*BKC) IV PUSH (09:20)
[2020-06-16] MEDS: ACETAMINOPHEN 500 MG TABLET 1000 MG PO (09:20)
--- NOTE | 2020-06-16 09:38 | SUR.PREOP ---
UNABLE TO ASSESS PULSE AND CAP REFILL ON LT FOOT. ENTIRE FOOT COVERED WITH DRESSING. LT HOBBS HAS WOUND VAC
[2020-06-16] MEDS: ceFAZolin 2 GM/D5W 50 ML 2 GM/50 ML BAG IVPB (11:08)
[2020-06-16] MEDS: BUPIVACAINE HCL 0.5% PF 30 ML VIAL INFILTRATE (11:42)
--- NOTE | 2020-06-16 12:41 | PM.PROC ---
Procedure Note - Detailed Date of procedure: 06/16/20 Pre-op diagnosis: left foot necrotic 4th ray, necrotizing wound, Post-op diagnosis: same Procedure performed: excisional debridement of left foot wound 10 x 10 cm, 4th ray amputation left foot, application of skin graft Description of procedure: Indications: Patient is a 64-year-old gentleman with insulin-dependent diabetes and peripheral neuropathy who is 1 month status post necrotizing fasciitis of the left foot. Patient underwent debridement and initial urgent treatment. He has gone on to have gangrene of the 4th toe but now has granulated the open wound in his ready for application graft. What was done: Patient identified in the preoperative holding. Informed consent given. Operative extremity marked. Patient received intravenous antibiotics. Patient brought to the operating room where underwent general anesthetic by anesthesia team. Positioned supine on operating room table. Time-out performed confirming the patient, site of the surgery and the plan. Foot and ankle prepped and draped usual sterile surgical fashion using a Betadine prep solution. No tourniquet was utilized. We addressed the 4th toe 1st. Vascularity was checked and no viable tissue was noted in the toe extending to the metatarsophalangeal joint level. Fifteen blade knife was then used to ellipse at the base of the 4th toe the soft tissue around the proximal phalanx and metatarsophalangeal joint. Soft tissues elevated off the neck of the metatarsal sharply. Bone cutter was used to transect the metatarsal and the distal 4th metatarsal metatarsophalangeal joint and the toe were removed and passed off as specimen. Any other loose necrotic tissue was removed. Wound was thoroughly irrigated with antibiotic solution and the distal skin was closed with 0 Prolene interrupted suture. Fifteen blade knife and rongeur were then used to perform excisional debridement of the wound and the necrotic skin edges including skin,, subcutaneous tissue, fascia. Final wound dimensions were 10 x 10 cm with 1.8 cm depth. Wound was thoroughly irrigated antibiotic solution. All remaining tissue was noted to be healthy bleeding and appeared viable. We then proceeded with grafting. 6 x 6 cm prime matrix collagen graft was shaped and filled into the areas of increased depth. Good incorporation with blood noted. 3 cc of amnion matrix was then prepared on the back table and injected around the wound. The 4 x 4 cm amnio-excel was then placed onto the open granulating tissue. Omnigraft Skin substitute was then opened and applied directly to the open wound and stapled into place around the periphery. Sterile dressing applied. total contact cast applied. The patient was then woken from anesthesia, extubated and taken to the recovery room in stable condition. All sponge, needle, instrument counts were correct at the end of the case. Anesthesia: GLMA Surgeon: Liam Cotton MD Printing Table Worker: healthcare administrative assistant Estimated blood loss (mL): 15 Drains: No Packing: No Pathology: yes ( left foot 4th ray) Complications: None Condition: stable Disposition: PACU Findings: dry gangrene of the 4th toe extending to the proximal phalanx metatarsophalangeal joint. Good granulation of 80% of the wound.
[2020-06-16 12:57] LABS: Glucose Point of Care 150 (65-105)
--- NOTE | 2020-06-16 13:56 | SUR.PHASEII ---
REPORT GIVEN TO ELIZA BROTHERS
== END 2020-06-16 14:40 | disposition home or self-care (01) ==
PROVIDERS: PCP Family Medicine Adolescent Medicine; Visit Provider Orthopaedic Surgery
PROC: (CPT 28810; principal; 2020-06-16 13:00)
PROC: (CPT 28810; 2020-06-16 13:00)
DX: I96 Gangrene, not elsewhere classified (principal); E11.621 Type 2 diabetes mellitus with foot ulcer; L97.529 Non-pressure chronic ulcer of other part of left foot with unspecified severity; E11.42 Type 2 diabetes mellitus with diabetic polyneuropathy; I10 Essential (primary) hypertension; E11.51 Type 2 diabetes mellitus with diabetic peripheral angiopathy without gangrene; K59.09 Other constipation; Z79.4 Long term (current) use of insulin; Z79.84 Long term (current) use of oral hypoglycemic drugs
CPT/HCPCS: 28810; 88305; 88311; A9270; J0690; J1100; J1885; J2250; J2405; J2704; J3010; J7120; Q4105; Q4110; Q4137; Q4139

== ENCOUNTER 2020-08-01 01:46 | Outpatient (CLI) | payer MEDICARE, SELFPAY ==
[2020-08-01 20:00] LABS: SARS-CoV-2 RNA PCR Negative
== END 2020-08-01 01:47 | disposition home or self-care (01) ==
LOC: ANHCOVIDDT 01:46
PROVIDERS: PCP Family Medicine Adolescent Medicine; Visit Provider Orthopaedic Surgery
DX: Z01.818 Encounter for other preprocedural examination (principal); Z20.828 Contact with and (suspected) exposure to other viral communicable diseases
CPT/HCPCS: 87635; C9803; U0003

== ENCOUNTER 2020-08-04 02:03 | Day surgery (SDC) | payer MEDICARE, SELFPAY ==
[2020-08-01 09:56] VITALS: BMI 27.5
--- NOTE | 2020-08-01 10:31 | HP_ITS ---
This report was moved to the correct visit, [id number] on 08/06/2020. Original report was signed by Laim Cotton MD on 08/01/20 1037. H&P: HPI History of Present Illness Date/Time: 08/01/20 10:31 Chief Complaint: necrotizing fasciitis left foot Narrative: Rhett Spann is a 64 year old male presents for follow-up [facility] outpatient wound clinic for left foot necrotizing fasciitis. 7 weeks status post initial debridement and 5 weeks status post follow-up debridement. He has been treated with a wound VAC dressing with 3 times per week dressing change. He denies fever or chills or other new complaints. Weight-bearing fas been protected with postop shoe. Review of Systems Constitutional: Constitutional: Reports as per HPI, Denies chills, Denies fatigue and Denies weakness ENT: Reports Normal hearing present and Denies nasal discharge Cardiovascular: Cardiovascular: Denies chest pain, Reports pedal edema ( Left lower extremity) and Denies lightheadedness Respiratory: Respiratory: Denies cough, Denies dyspnea and Denies wheezing Gastrointestinal: Gastrointestinal: Denies abdominal pain, Denies diarrhea, Reports nausea and Reports vomiting Genitourinary: Genitourinary: Denies dysuria and Denies urinary frequency Musculoskeletal: Musculoskeletal: Reports as per HPI Integumentary/Breasts: Skin/Breast: Reports as per HPI, Reports erythema and Reports unusual bruising ( dorsal foot) Neurologic: Reports abnormal gait ( antalgic left lower extremity) and Reports numbness ( numbness left foot) Psychiatric: Psychiatric: Reports as per HPI Endocrine: Endocrine: Reports cold intolerance Hematologic/Lymphatic: Hematologic/Lymphatic: Denies easy bleeding Allergic/Immunologic: Allergic/Immunologic: Reports no additional allergic/immunologic complaints ON LICENSE OF [facility] Past Medical History Medical History Cellulitis of left foot Chronic constipation Diabetes mellitus Diabetic foot ulcer associated with diabetes mellitus due to underlying condition Diabetic peripheral neuropathy Encounter for postoperative care Group beta Strep positive Hypertension Impotence Necrotizing fasciitis of ankle and foot Noncompliance with medication regimen Overweight (BMI 25.0-29.9) Peripheral artery disease Uncontrolled diabetes mellitus Surgical History Surgical History H/O arthroscopy of right knee Family History Family History Father , age 62 Myocardial infarct Lung disease Mother , age 73 Lung disease Sibling , age 67 Lung disease Social History Social History Social History: The patient currently lives at home with his significant other. 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 He has since not been working. Smoking status: Never smoker Second hand tobacco smoke exposure: Yes Alcohol intake: current Drinks per week: 3 Substance use: current Substance use type: marijuana Last use: ONCE A MONTH Additional living arrangements comments: He currently lives with his significant other in [place], [place]. he is not Additional occupation/education comments: see above Gender identity (if verbalized by the patient): Male Spiritual care concerns: No Agree to blood products: Yes Meds Home Medications and Allergies Home Medications Medication Instructions
--- NOTE | 2020-08-01 14:15 | WPDANESEPPF ---
Anes - Initial Pre Proc Eval Procedure: Operation Date: 08/04/20 09:30 Proposed Procedures p Left Foot Debridement, Graft Application And Wound Vac - Liam Cotton MD Date/Time: 08/01/20 14:15 Surgeon: Liam Cotton MD Pre Op Diagnosis: Left Diabetic Foot Ulcer Patient Data Age: 64 Gender: M Height: 1.78 m Weight: 87.1 kg Allergies Allergy/AdvReac Type Severity Reaction Status Date / Time No Known Allergies Allergy Verified 08/04/20 08:01 Home Medications Medication Instructions Recorded Confirmed Type OneTouch Verio test strips #30 each NS 05/19/20 Rx blood-glucose meter [OneTouch #1 each NS 05/19/20 Rx Verio Flex meter] insulin syringe,safetyneedle #30 each NS 05/19/20 Rx lancets [OneTouch Delica Plus #30 each NS 05/19/20 Rx Lancet] gabapentin [Neurontin] 300 mg PO TID 06/10/20 08/04/20 History oxycodone-acetaminophen [Percocet] 1 tablet PO Q4H PRN #30 tablet 06/16/20 08/04/20 Rx escitalopram oxalate 10 mg PO QAM 08/01/20 08/04/20 History glimepiride 1 mg PO QAM 08/01/20 08/04/20 History metformin [Glucophage] 1,000 mg PO BID 08/01/20 08/04/20 History Patient hx anesthesia problems: none Family hx anesthesia problems: none PMFSH Past Medical History Medical History Cellulitis of left foot Chronic constipation Diabetes mellitus Diabetic foot ulcer associated with diabetes mellitus due to underlying condition Diabetic peripheral neuropathy Encounter for postoperative care Group beta Strep positive Hypertension Impotence Necrotizing fasciitis of ankle and foot Noncompliance with medication regimen Overweight (BMI 25.0-29.9) Peripheral artery disease Uncontrolled diabetes mellitus Surgical History Surgical History H/O arthroscopy of right knee Family History Family History Father , age 62 Myocardial infarct Lung disease Mother , age 73 Lung disease Sibling , age 67 Lung disease Social History Social History Social History: The patient currently lives at home with his significant other. 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 He has since not been working. Smoking status: Never smoker Second hand tobacco smoke exposure: Yes Alcohol intake: current Drinks per week: 3 Substance use: current Substance use type: marijuana Last use: ONCE A MONTH Living arrangements: alone Additional living arrangements comments: He currently lives with his significant other in [place], [place]. he is not Additional occupation/education comments: see above Gender identity (if verbalized by the patient): Male Spiritual care concerns: No Agree to blood products: Yes Anes - Eval Final PreProcedure Day of Procedure 08/01/20 14:15 Patient weight: overweight Heart: regular rate and rhythm Lungs: clear to auscultation and normal air movement Airway: Mallampati scale class II Neurological: alert and oriented Last oral intake: >/= 8 hours ASA classification: III Emergent: no Anesthetic plan: proceed Anesthesia type and monitoring: general GIVS and standard monitoring Informed Consent: The patient's anesthetic plan and its attendant risks and benefits were discussed with the patient/family/POA. Questions were solicited and answers provided to the satisfaction of the patient/family/POA.
--- NOTE | 2020-08-04 06:55 | WPDHPUPDATE1 ---
History and Physical Update Update Date/Time: 08/04/20 06:55 History and Physical has been reviewed, including an updated exam of the patient. There are NO changes in the patient's condition. Covid test negative Risks, benefits, and alternatives have been discussed and questions answered. Patient agrees to proceed with procedure.
[2020-08-04 08:12] VITALS: BP 120/69; PULSE 86; RESP 20; TEMP 37.1; O2SAT 100
[2020-08-04 08:13] VITALS: BMI 28.3
[2020-08-04] MEDS: LACTATED RINGERS 1,000 ML 30 ML IV CONT (08:37)
[2020-08-04] MEDS: ACETAMINOPHEN 500 MG TABLET 1000 MG PO (08:40)
[2020-08-04] MEDS: KETOROLAC 15 MG/ML VIAL (*BKC) IV PUSH (08:42)
[2020-08-04 08:44] LABS: Glucose Point of Care 125 (65-105)
[2020-08-04 08:48] LABS: Anion Gap 8 mmol/L (8-16); Blood Urea Nitrogen 14 mg/dL (9-20); Calcium 9.3 mg/dL (8.4-10.2); Carbon Dioxide 29 mmol/L (22-30); Chloride 103 mmol/L (98-107); Estimated CRCL calculation 75 ml/min; Estimated Glomerular Filt Rate > 60; Glucose 140 mg/dL (75-110); Potassium 4.4 mmol/L (3.4-5.0); Sodium 140 mmol/L (137-145)
[2020-08-04] MEDS: ceFAZolin 2 GM/D5W 50 ML 2 GM/50 ML BAG IVPB (09:33)
[2020-08-04 10:24] VITALS: BP 107/65; PULSE 78; RESP 16
[2020-08-04 10:40] LABS: Glucose Point of Care 104 (65-105)
--- NOTE | 2020-08-04 10:42 | P.OP_ITS ---
Procedure Note - Detailed Date of procedure: 08/04/20 Pre-op diagnosis: Left Diabetic Foot Ulcer Post-op diagnosis: same Procedure performed: Debridement left foot diabetic ulcer, application of graft Description of procedure: Indications: Patient is a 64-year-old gentleman with insulin-dependent diabetes and peripheral neuropathy. He developed a ulcer of the left foot which was complicated by necrotizing fasciitis. He has undergone previous debridement. His wound healing has plateaued and he presents now for debridement with application of graft. What was done: Patient identified in the preoperative holding. Informed consent given. Operative extremity marked. Patient received intravenous antibiotics. Patient brought to the operating room where underwent intravenous conscious sedation by anesthesia team. Positioned supine on operating room table. Time- out performed confirming the patient, site of the surgery and the plan. Left foot prepped with Betadine prep solution. Fifteen blade knife used to sharply excise devitalized skin, subcutaneous tissue and muscle from the left foot ulcer wound. Wound measured approximately 9.5 cm in width and 8 cm in length with 1.5 cm of depth. Wound was thoroughly irrigated with saline. Amniotic injectable tissue as well as a membrane was then applied to the wound. Prime matrix collagen regenerative graft then applied to the areas of the wound with depth. The entire wound was then covered with omnigraft and stapled into place. Mepitel covering placed followed by wound VAC dressing. Sterile dressing applied. The patient was then woken from anesthesia, extubated and taken to the recovery room in stable condition. All sponge, needle, instrument counts were correct at the end of the case. Implants: Integra omnigraft, primatrix, amnioexcel, amniomatrix Anesthesia: MAC Surgeon: Liam Cotton MD Estimated blood loss (mL): 5 Tourniquet time (min): 0 Drains: No Packing: No Pathology: none sent Complications: None Condition: stable Disposition: PACU
[2020-08-04 10:55] VITALS: BP 127/67; PULSE 71; RESP 16; O2SAT 100
[2020-08-04 11:25] VITALS: BP 145/81; PULSE 72; RESP 16
[2020-08-04] MEDS: ONDANSETRON INJ 4 MG/2 ML VIAL IV PUSH (11:28)
== END 2020-08-04 12:10 | disposition home or self-care (01) ==
PROVIDERS: Anesthesiology; PCP Family Medicine Adolescent Medicine; Visit Provider Orthopaedic Surgery
PROC: (CPT 15275; principal; 2020-08-04 09:30)
DX: E11.621 Type 2 diabetes mellitus with foot ulcer (principal); L97.523 Non-pressure chronic ulcer of other part of left foot with necrosis of muscle; M72.6 Necrotizing fasciitis; B95.1 Streptococcus, group B, as the cause of diseases classified elsewhere; E11.42 Type 2 diabetes mellitus with diabetic polyneuropathy; E11.51 Type 2 diabetes mellitus with diabetic peripheral angiopathy without gangrene; I10 Essential (primary) hypertension; K59.09 Other constipation; Z79.4 Long term (current) use of insulin
CPT/HCPCS: 15275; 15276 ×3; 15004; 36415; 80048; Q4137; A9270; J0690; J1885; J2250; J2405; J2704; J3010; J3370; J7120; Q4105; Q4110; Q4139

== ENCOUNTER 2020-08-20 07:26 | Outpatient (RCR) | payer MEDICARE, SELFPAY ==
[2020-05-23 08:30] VITALS: BMI 29.2
--- NOTE | 2020-05-26 09:24 | PM.PNORT ---
Progress Note: A&P Assessment and Plan (1) Necrotizing fasciitis of ankle and foot: Code(s): M72.6 - Necrotizing fasciitis Status: Acute Assessment and Plan: 1 week, 5 days s/p left foot debridement and wound VAC application. Patient follows up in [facility] wound clinic today for wound VAC dressing change. Per patient, wound VAC was malfunctioning and he turned it off independently. He did not contact the wound clinic or our office for recommendations and currently does not have home lee for wound VAC dressing changes. Patient also noncompliant with post op shoe, in regular tennis shoes on exam today. Surrounding necrotic/devitalized tissue removed under sterile conditions today with #15 blade knife. Underlying ulcer measures 10x7x1.5cm, 100% red/pink wound bed underlying. Tendon exposure. No bone visible. Wound VAC reapplied. Wound VAC dressing changes 3x weekly in the [facility] wound clinic. Will follow weekly. Continue antibiotics. Suture removal from plantar foot 2weeks post op planned. Patient aware of grim outlook for 4th ray and need for further debridement. Follow up in [facility] wound clinic 3x weekly. We will see him in 1 week. Patient fit with fracture boot today as well. Continue use of walker. 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 (3) Cellulitis of left foot: Code(s): L03.116 - Cellulitis of left lower limb Status: Acute Subjective Subjective Date/Time Seen: 05/23/20 0830 64-year-old male returns to the [place] wound clinic today 1 week, 5 days status post left foot debridement. Wound VAC no longer functioning upon exam. Patient did not contact our office or wound clinic with failed wound VAC. Wound VAC dressing removed. Underlying tissue with increased maceration due to failed VAC seal. He denies fever, chills, night sweats, nausea, vomiting or diarrhea. He reports compliance with oral antibiotics. He has not been wearing his post op shoe, he is currently in tennis shoes. Using walker. Review of Systems Review of Systems: All systems reviewed & are unremarkable except as noted in HPI and below Constitutional: Constitutional: Reports as per HPI, Reports difficulty sleeping, Reports fever(s) and Reports night sweats Cardiovascular: Cardiovascular: Reports as per HPI, Denies chest pain and Denies lightheadedness Respiratory: Respiratory: Denies cough, Denies dyspnea and Denies wheezing Musculoskeletal: Musculoskeletal: Reports arthralgias (left foot ), Reports joint swelling (left foot ), Reports numbness (b/l feet ) and Reports tingling (b/l feet ) Psychiatric: Psychiatric: Reports anxiety Exam Const: General: healthy appearing; No in distress or confusion Orientation/consciousness: patient oriented x3 and No confusion HENMT: Head: normal to inspection, normocephalic and atraumatic Eyes: Conjunctivae: conjunctivae normal Sclera: sclerae normal Resp: Effort & Inspection: normal respiratory effort and no audible wheezes Neuro: General: patient oriented x3 and No confusion Extrem: Other: Left foot with 4th ray dry necrosis, no refill. Hallux, 2nd, 3rd and 5th toes with good capillary refill. Large wound on the dorsal lateral aspect of the left foot measures 10x7x1.5cm. All devitalized tissue debrided under sterile conditions today. Und
--- NOTE | 2020-05-26 11:09 | PM.PROC ---
Procedure Note - Detailed Date of procedure: 05/23/20 Pre-op diagnosis: WOUND VAC CHANGE FOR FOOT ULCER Necrotizing fasciitis foot Post-op diagnosis: same Procedure performed: excisional debridement left foot Description of procedure: patient identified and consent given. Foot prepped with alcohol prep solution. Fifteen blade knife used to excise skin subcutaneous tissue and muscle from the dorsal foot wound. Approximately 7 cm wound. Dressed with wound VAC dressing. Patient tolerated without incident. Anesthesia: none Surgeon: Liam Cotton MD Estimated blood loss (mL): 1 Drains: No Packing: Yes Pathology: none sent Complications: None Condition: stable Disposition: other ( Home after wound VAC dressing applied)
--- NOTE | 2020-05-30 09:21 | PM.PNORT ---
Progress Note: A&P Assessment and Plan (1) Necrotizing fasciitis of ankle and foot: Code(s): M72.6 - Necrotizing fasciitis Status: Acute Assessment and Plan: 2 weeks, 4 days s/p left foot debridement and wound VAC application. Patient follows up in [facility] wound clinic today for wound VAC dressing change. Ulcer measures 10x7x1.5cm, 40% granulation. Tendon exposure. No bone visible. Wound VAC reapplied. Wound VAC dressing changes 3x weekly in the [facility] wound clinic. Will follow weekly. Continue antibiotics. Suture removal from plantar foot today. Patient aware of grim outlook for 4th ray and need for further debridement. Follow up in [facility] wound clinic 3x weekly. We will see him in 1 week. Continue fracture boot. Continue use of walker. Pain medicine refilled. Discussed plan for weaning off. Metformin refilled due to risk of uncontrolled diabetes without medication. He discussed in detail the absolute need for patient follow-up with his primary care physician for further evaluation and diabetic control. Patient verbalizes understanding. 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 (3) Cellulitis of left foot: Code(s): L03.116 - Cellulitis of left lower limb Status: Acute Subjective Subjective Date/Time Seen: 05/30/20 09:21 Patient presents to [facility] wound clinic for follow-up of left foot necrotizing fasciitis. Wound VAC has been in place. Fracture boot for protected weight-bearing. He reports no new problems. He denies fever. He states that he is running low on his diabetes medicine and pain medicine. Exam Const: General: healthy appearing; No in distress or confusion Orientation/consciousness: patient oriented x3 and No confusion HENMT: Head: normal to inspection, normocephalic and atraumatic Eyes: Conjunctivae: conjunctivae normal Sclera: sclerae normal Resp: Effort & Inspection: normal respiratory effort and no audible wheezes Neuro: General: patient oriented x3 and No confusion Extrem: Other: Left foot with 4th ray dry necrosis, no cap refill. Hallux, 2nd, 3rd and 5th toes with good capillary refill. Large wound on the dorsal lateral aspect of the left foot measures 10x7x1.5cm. Underlying tissue 40% red/pink wound bed With good granulation. approximately 60% slough wound. Surrounding skin with mild necrosis. No extension of erythema, ecchymosis or skin changes above the ankle. Leg and knee remain benign. Psych: Affect: normal affect Objective Data Meds/Results Medications: Active Medications Generic Name Dose Route Start Last Admin Trade Name Freq PRN Reason Stop Dose Admin Tolnaftate 1 applic 05/28/20 09:51 Tolnaftate 1% Powder 45 Gm Btl TOPICAL 08/28/20 23:55 PRN PRN Wound Care
--- NOTE | 2020-06-06 13:05 | PM.PNORT ---
Progress Note: A&P Assessment and Plan (1) Necrotizing fasciitis of ankle and foot: Code(s): M72.6 - Necrotizing fasciitis Status: Acute Assessment and Plan: 3 weeks, 4 days s/p left foot debridement and wound VAC application. Patient follows up in [facility] wound clinic today for wound VAC dressing change. See skin assessment for dimensions of wound. Tendon exposure. No bone visible. Wound VAC reapplied. Wound VAC dressing changes 3x weekly in the [facility] wound clinic. Will follow weekly. Continue antibiotics. Patient aware of grim outlook for 4th ray and need for further debridement. Follow up in [facility] wound clinic 3x weekly. We will see him in 1 week. Continue fracture boot. Continue use of walker. Plan for surgical intervention on June 16. At that point we will likely do a 4th ray amputation and debridement of the wound as well as graft application. Risks of surgery including but not limited to neurovascular damage, wound complications, blood clot, pulmonary embolus, stroke, myocardial infarction, anesthetic risks up to and including were reviewed. Continued pain and possible dysfunction were explained. No guarantees were offered. The patient understands and wishes to proceed. Plan: Debridement of left foot wound, graft application and 4th ray amputation by Dr. Cotton. Continue wound VAC dressing changes at this time. Reviewed signs and symptoms of infection which would require immediate intervention the emergency room. Patient verbalized understanding and agrees with plan of care. 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 (3) Cellulitis of left foot: Code(s): L03.116 - Cellulitis of left lower limb Status: Acute Subjective Subjective Date/Time Seen: 06/06/20 13:05 Patient presents to [facility] wound clinic for follow-up of left foot necrotizing fasciitis. Wound VAC has been in place. Fracture boot for protected weight-bearing. He reports no new problems. He denies fever. He does have an upcoming appointment with his primary care physician on June 11 to get refills of his diabetic medications. Review of Systems Review of Systems: All systems reviewed & are unremarkable except as noted in HPI and below Constitutional: Constitutional: Reports as per HPI, Reports difficulty sleeping, Reports fever(s) and Reports night sweats Cardiovascular: Cardiovascular: Reports as per HPI, Denies chest pain and Denies lightheadedness Respiratory: Respiratory: Denies cough, Denies dyspnea and Denies wheezing Musculoskeletal: Musculoskeletal: Reports arthralgias (left foot ), Reports joint swelling (left foot ), Reports numbness (b/l feet ) and Reports tingling (b/l feet ) Psychiatric: Psychiatric: Reports anxiety Exam Const: General: healthy appearing; No in distress or confusion Orientation/consciousness: patient oriented x3 and No confusion HENMT: Head: normal to inspection, normocephalic and atraumatic Eyes: Conjunctivae: conjunctivae normal Sclera: sclerae normal Resp: Effort & Inspection: normal respiratory effort and no audible wheezes Neuro: General: patient oriented x3 and No confusion Extrem: Other: Left foot with 4th ray dry necrosis, no cap refill. Hallux, 2nd, 3rd and 5th toes with good capillary refill. Lar
--- NOTE | 2020-06-13 09:23 | PM.IMHP ---
H&P: HPI History of Present Illness Date/Time: 06/13/20 09:23 Chief complaint: WOUND VAC CHANGE FOR FOOT ULCER Narrative: Rhett Spann is a 64 year old male Presents for follow-up [facility] outpatient wound clinic for left foot necrotizing fasciitis. One month status post initial debridement in 2 weeks status post follow-up debridement. He is been treated with a wound VAC dressing with 3 times per week dressing change. He denies fever or chills or other new complaints. Weight-bearing as been with protected fracture boot. Review of Systems Constitutional: Constitutional: Reports as per HPI, Denies chills, Denies fatigue and Denies weakness ENT: Reports Normal hearing present and Denies nasal discharge Cardiovascular: Cardiovascular: Denies chest pain, Reports pedal edema ( Left lower extremity) and Denies lightheadedness Respiratory: Respiratory: Denies cough, Denies dyspnea and Denies wheezing Gastrointestinal: Gastrointestinal: Denies abdominal pain, Denies diarrhea, Reports nausea and Reports vomiting Genitourinary: Genitourinary: Denies dysuria and Denies urinary frequency Musculoskeletal: Musculoskeletal: Reports as per HPI Integumentary/Breasts: Skin/Breast: Reports as per HPI, Reports erythema and Reports unusual bruising ( dorsal foot) Neurologic: Reports abnormal gait ( antalgic left lower extremity) and Reports numbness ( numbness left foot) Psychiatric: Psychiatric: Reports as per HPI Endocrine: Endocrine: Reports cold intolerance Hematologic/Lymphatic: Hematologic/Lymphatic: Denies easy bleeding Allergic/Immunologic: Allergic/Immunologic: Reports no additional allergic/immunologic complaints PMFSH Past Medical History Medical History Cellulitis of left foot Chronic constipation Diabetes mellitus Diabetic foot ulcer associated with diabetes mellitus due to underlying condition Diabetic peripheral neuropathy Group beta Strep positive Hypertension Impotence Necrotizing fasciitis of ankle and foot Noncompliance with medication regimen Peripheral artery disease Surgical History Surgical History H/O arthroscopy of right knee Family History Family History Father , age 62 Myocardial infarct Lung disease Mother , age 73 Lung disease Sibling , age 67 Lung disease Social History Social History Social History: The patient currently lives at home with his significant other. 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 He has since not been working. Smoking status: Never smoker Second hand tobacco smoke exposure: Yes Alcohol intake: current Drinks per week: 3 Substance use: never Substance use type: does not use Additional living arrangements comments: He currently lives with his significant other in [place], [place]. he is not Additional occupation/education comments: see above Gender identity (if verbalized by the patient): Male Spiritual care concerns: No Agree to blood products: Yes Meds Home Medications and Allergies Home Medications Medication Instructions Recorded Confirmed Type amoxicillin-pot clavulanate 1 tablet PO Q8HR 29 Days #87 tablet 05/19/20 06/10/20 Rx [Augmentin] blood sugar diagnostic [OneTouch #30 each NS 05/19/20 Rx Verio test strips] blood-glucose meter [OneTouch #1 each NS 05/19/20 Rx Verio Flex meter] insulin NPH and regular human 10 units SUBCUT BIDAC 30 Days #3 ml 05/19/20 06/10/20 Rx [Novolin 70/30 U-100 Insulin] insulin syringe,safetyneedle #30 each NS 05/19/20 Rx lancets [OneTouch Delica Plus #30 each NS 05/19/20 Rx Lancet] hydrocodone 5 mg-acetaminophen 325 1 - 2 t
--- NOTE | 2020-06-20 08:37 | PM.PNORT ---
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 New total contact cast applied today. Graft appears to be taking well. Continue oral antibiotics. Continue with diabetes and blood sugar control. Follow-up in 1 week for cast change. 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 Four days status post left foot debridement, 4th ray amputation application graft. Patient without any interim complaints. Pain under control. Denies fever or chills. No problems with the cast Exam Const: General: healthy appearing; No in distress or confusion Orientation/consciousness: patient oriented x3 and No confusion HENMT: Head: normal to inspection, normocephalic and atraumatic Eyes: Conjunctivae: conjunctivae normal Sclera: sclerae normal Neck: Neck: supple and nontender Resp: Effort & Inspection: normal respiratory effort and no audible wheezes Cardio: Rate: regular rate Rhythm: regular rhythm Skin: General skin exam: no rashes or lesions noted Neuro: General: patient oriented x3 and No confusion Extrem: Right upper extremity: normal to inspection Left upper extremity: normal to inspection Other: cast removal left leg. Large wound on the dorsal lateral aspect of the left foot measures [id number]. Skin graft in place and appears to be taking well. Incision site from 4th ray amputation well approximated. Minimal serous drainage. no Surrounding necrosis. No extension of erythema, ecchymosis or skin changes above the ankle. Leg and knee remain benign. Negative Homans sign Psych: Affect: normal affect Objective Data Meds/Results Medications: Active Medications Generic Name Dose Route Start Last Admin Trade Name Freq PRN Reason Stop Dose Admin Tolnaftate 1 applic 05/28/20 09:51 Tolnaftate 1% Powder 45 Gm Btl TOPICAL 08/28/20 23:55 PRN PRN Wound Care Wound Care/Dressing Products 1 patch 06/04/20 14:27 Mepilex Transfer Drsg 6x8 TOPICAL 09/04/20 23:55 PRN PRN Wound Care Fracture/Casting/Strapping Pre Procedure Consent was obtained, Procedures/risks were explained, Questions were answered, Correct patient identified and Correct side and site confirmed Episode of Care Return Visit ( left foot) Casting Cast: Total Contact Leg Cast ( left) Modification and Status: Diabetic Application Exam of Affected Area: Color: Normal, Temp: Normal, Pulse: Normal, Blanching: Normal, Capillary Refill: Normal and Sensory Exam: Abnormal ( neuropathy) Swelling: No and Tenderness: No Skin Apperance: Clean and Dry and Open Care: Alcohol Wipes Patient Tolerated Procedure Well: Yes
--- NOTE | 2020-06-27 12:58 | PM.PNORT ---
Progress Note: A&P Assessment and Plan (1) Encounter for postoperative care: Code(s): Z48.89 - Encounter for other specified surgical aftercare Status: Acute Assessment and Plan: One week, 4 days status post left foot debridement, 4th ray amputation and application of graft. TCC removed. Moderate amount of drainage. Recommended repeat application of TCC at this time for PWB and graft protection. Plan to keep graft in place x3 weeks total. Will have patient follow up in 5 days for cast change due to increased drainage. Will also apply Lotrisone to the toes due to some irritation of the surrounding skin due to moderate drainage. (2) Group beta Strep positive: Code(s): B95.1 - Streptococcus, group B, as the cause of diseases classified elsewhere Status: Acute Assessment and Plan: patient has completed his dose of oral antibiotics. We will continue to monitor at this time. 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 - Non-pressure chronic ulcer of other part of left foot with necrosis of muscle Code(s): E08.621 - Diabetes mellitus due to underlying condition with foot ulcer; L97.509 - Non-pressure chronic ulcer of other part of unspecified foot with unspecified severity Status: Acute Assessment and Plan: Discussed importance of continued diabetic diet and medication compliance Subjective Subjective Date/Time Seen: 06/27/20 12:58 64-year-old male returns [facility] wound clinic today for re-evaluation left foot 1 week, 4 days status post 4th ray amputation and graft placement. Patient denies fever, chills, night sweats, nausea, vomiting or diarrhea. He has finished his course of oral antibiotics. He does endorse having been on his foot more frequently and did ride a motorcycle as well. no new complaints. Tolerating contact cast well. Review of Systems Constitutional: Constitutional: Reports as per HPI, Denies chills, Denies fatigue and Denies weakness ENT: Reports Normal hearing present and Denies nasal discharge Cardiovascular: Cardiovascular: Denies chest pain, Reports pedal edema ( Left lower extremity) and Denies lightheadedness Respiratory: Respiratory: Denies cough, Denies dyspnea and Denies wheezing Gastrointestinal: Gastrointestinal: Denies abdominal pain, Denies diarrhea, Reports nausea and Reports vomiting Genitourinary: Genitourinary: Denies dysuria and Denies urinary frequency Musculoskeletal: Musculoskeletal: Reports as per HPI Integumentary/Breasts: Skin/Breast: Reports as per HPI, Reports erythema and Reports unusual bruising ( dorsal foot) Neurologic: Reports abnormal gait ( antalgic left lower extremity) and Reports numbness ( numbness left foot) Psychiatric: Psychiatric: Reports as per HPI Endocrine: Endocrine: Reports cold intolerance Hematologic/Lymphatic: Hematologic/Lymphatic: Denies easy bleeding Allergic/Immunologic: Allergic/Immunologic: Reports no additional allergic/immunologic complaints Exam Const: General: healthy appearing; No in distress or confusion Orientation/consciousness: patient oriented x3 and No confusion HENMT: Head: normal to inspection, normocephalic and atraumatic Eyes: Conjunctivae: conjunctivae normal Sclera: sclerae normal Neck: Neck: supple and nontender Resp: Effort & Inspection: normal respiratory effort and no audible wheezes Cardio: Rate: regular rate Rhythm: regular rhythm Skin: General skin exam: no rashes or lesions noted Neuro: General: patient oriented x3 and No confusion Extrem: Right upper extremity: normal to
--- NOTE | 2020-07-01 10:51 | PM.PNORT ---
Progress Note: A&P Assessment and Plan (1) Encounter for postoperative care: Code(s): Z48.89 - Encounter for other specified surgical aftercare Status: Acute Assessment and Plan: Patient is now 2 weeks, 1 day status post left foot debridement 4th ray amputation with the application of an Omni graft. Total contact cast removed today status post application on Tuesday of last week. He has a moderate amount of drainage and the surrounding tissue was macerated. Redness consistent with yeast. Redness completely relieved with elevation. No warmth. No malodor. No purulence drainage. Patient denies fever, chills, night sweats, nausea, vomiting or diarrhea. He reports well-maintained blood glucose levels. Given copious amount of drainage with the total contact cast despite frequent contact cast changes, recommended re-application of the wound VAC at this time. Wound duct applied, tolerated well. Surrounding skin treated with antifungal powder. Patient will be fit with a postop shoe to return home today but then should transition to his fracture boot which he has at home. Recommended protected weight-bearing of the left lower extremity with a walker. Graft was protected with a Mepitel ONE dressing prior to wound VAC application. Patient to return to the [facility] on Tuesday for wound VAC dressing change. Discussed importance of protected weight-bearing of the left lower extremity with a walker. Elevate. Monitor output into the wound VAC. Signs symptoms of infection reviewed with the patient. Verbalized understanding. Patient understands went to report to the emergency room. Discussed importance of well-maintained blood glucose levels for optimal healing. (2) Group beta Strep positive: Code(s): B95.1 - Streptococcus, group B, as the cause of diseases classified elsewhere Status: Acute Assessment and Plan: Patient has completed his dose of oral antibiotics. We will continue to monitor at this time. (3) Necrotizing fasciitis of ankle and foot: Code(s): M72.6 - Necrotizing fasciitis Status: Acute Assessment and Plan: Wound VAC application performed today. 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 - Non-pressure chronic ulcer of other part of left foot with necrosis of muscle Code(s): E08.621 - Diabetes mellitus due to underlying condition with foot ulcer; L97.509 - Non-pressure chronic ulcer of other part of unspecified foot with unspecified severity Status: Acute Assessment and Plan: Discussed importance of continued diabetic diet and medication compliance Subjective Subjective Date/Time Seen: 07/01/20 10:51 64-year-old male returns [place] wound clinic today for re-evaluation left foot 2 weeks, 1 day s/p 4th ray amputation and graft placement for large dorsal ulcer from necrotizing fasciitis. Patient denies fever, chills, night sweats, nausea, vomiting or diarrhea. He has finished his course of oral antibiotics. He follows up today for total contact cast change status post total contact cast application on Tuesday of last week. He had a large amount of fluid after is cast removal on Tuesday prompting 2 times per week dressing changes and cast applications. He is here today for re-evaluation. He has a large amount of drainage on the dressing of the left foot. He denies increased activity but has been riding his motorcycle and going to [place]. He reports well control blood glucose levels. Review of Systems Constitutional: Constitutional: Reports as per HPI, Denies chills, Denies fatigue and Denies weakness ENT: Reports Normal hearing present and Denies nasal discharge Cardiovascular
--- NOTE | 2020-07-04 09:12 | PM.PNORT ---
Progress Note: A&P Assessment and Plan (1) Encounter for postoperative care: Code(s): Z48.89 - Encounter for other specified surgical aftercare Status: Acute Assessment and Plan: Patient is now 2 weeks, 4 days s/p left foot debridement 4th ray amputation with the application of an Omni graft. Wound VAC applied on Tuesday of this week. Overall, good improvement in control of drainage. Omnigraft covering removed, que removed, sutures removed from 4th Ray. Continue wound VAC dressing changes three times per week in the wound clinic. Continue antifungal powder to surrounding tissue. Encourage patient to elevate the LLE above the level of the heart. Monitor for redness. Reviewed signs and symptoms of infection to report to ED. Will follow up with patient in 2 weeks but he will continue dressing changes with WOUND nurses in the interim. (2) Group beta Strep positive: Code(s): B95.1 - Streptococcus, group B, as the cause of diseases classified elsewhere Status: Acute Assessment and Plan: Patient has completed his dose of oral antibiotics. We will continue to monitor at this time. (3) Necrotizing fasciitis of ankle and foot: Code(s): M72.6 - Necrotizing fasciitis Status: Acute Assessment and Plan: Wound VAC application performed today. 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 - Non-pressure chronic ulcer of other part of left foot with necrosis of muscle Code(s): E08.621 - Diabetes mellitus due to underlying condition with foot ulcer; L97.509 - Non-pressure chronic ulcer of other part of unspecified foot with unspecified severity Status: Acute Assessment and Plan: Discussed importance of continued diabetic diet and medication compliance Subjective Subjective Date/Time Seen: 07/04/20 09:12 64-year-old male returns [place] wound clinic today for re-evaluation left foot 2 weeks, 4 days s/p 4th ray amputation and graft placement for large dorsal ulcer from necrotizing fasciitis. Patient denies fever, chills, night sweats, nausea, vomiting or diarrhea. He is no longer on oral antibiotics. He follows up today for WOUND VAC dressing change s/p re-initiation of wound VAC on Tuesday. Wound VAC with some malfunctioning but overall better drainage control than TCC. Omnigraft covering removed with wound VAC change. Que removed. Sutures removed from 4th Ray. No new complaints. Review of Systems Constitutional: Constitutional: Reports as per HPI, Denies chills, Denies fatigue and Denies weakness ENT: Reports Normal hearing present and Denies nasal discharge Cardiovascular: Cardiovascular: Denies chest pain, Reports pedal edema ( Left lower extremity) and Denies lightheadedness Respiratory: Respiratory: Denies cough, Denies dyspnea and Denies wheezing Gastrointestinal: Gastrointestinal: Denies abdominal pain, Denies diarrhea, Reports nausea and Reports vomiting Genitourinary: Genitourinary: Denies dysuria and Denies urinary frequency Musculoskeletal: Musculoskeletal: Reports as per HPI Integumentary/Breasts: Skin/Breast: Reports as per HPI, Reports erythema and Reports unusual bruising ( dorsal foot) Neurologic: Reports abnormal gait ( antalgic left lower extremity) and Reports numbness ( numbness left foot) Psychiatric: Psychiatric: Reports as per HPI Endocrine: Endocrine: Reports cold intolerance Hematologic/Lymphatic: Hematologic/Lymphatic: Denies easy bleeding Allergic/Immunologic: Allergic/Immunologic: Reports no additional allergic/immunologic complaints Exam Const: General: healthy appearing; No in distress or confusion Orientation/consciousness: patient oriented x3 an
--- NOTE | 2020-07-18 08:58 | PM.PNORT ---
Progress Note: A&P Assessment and Plan (1) Encounter for postoperative care: Code(s): Z48.89 - Encounter for other specified surgical aftercare Status: Acute Assessment and Plan: Patient is now 4 weeks, 4 days s/p left foot debridement 4th ray amputation with the application of an Omni graft. Wound VAC applied 2 weeks ago. Overall, good improvement in control of drainage. wound bed granulating well Continue wound VAC dressing changes three times per week in the wound clinic. Continue antifungal powder to surrounding tissue. Encourage patient to elevate the LLE above the level of the heart. Monitor for redness. Reviewed signs and symptoms of infection to report to ED. Will follow up with patient in 2 weeks but he will continue dressing changes with WOUND nurses in the interim. may use postoperative shoe for weight-bearing instead of fracture boot to reduce pressure on the lateral foot. We will re-evaluate in wound clinic for wound VAC dressing change. Indicated for graft application to assist with epithelialization. Indicated for omnigraft with primatrix to assist in healing. (2) Group beta Strep positive: Code(s): B95.1 - Streptococcus, group B, as the cause of diseases classified elsewhere Status: Acute Assessment and Plan: Patient has completed his dose of oral antibiotics. We will continue to monitor at this time. (3) Necrotizing fasciitis of ankle and foot: Code(s): M72.6 - Necrotizing fasciitis Status: Acute Assessment and Plan: Wound VAC application performed today. 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 He currently has wound VAC in place. Using a fracture boot for ambulation. Denies fever or chills. States little bit of lateral foot pain and pressure with the use of the boot. Otherwise no new pain. Exam Const: General: healthy appearing; No in distress or confusion Orientation/consciousness: patient oriented x3 and No confusion HENMT: Head: normal to inspection, normocephalic and atraumatic Eyes: Conjunctivae: conjunctivae normal Sclera: sclerae normal Neck: Neck: supple and nontender Resp: Effort & Inspection: normal respiratory effort and no audible wheezes Cardio: Rate: regular rate Rhythm: regular rhythm Skin: General skin exam: no rashes or lesions noted Neuro: General: patient oriented x3 and No confusion Extrem: Right upper extremity: normal to inspection Left upper extremity: normal to inspection Other: Large wound on the dorsal lateral aspect of the left foot measures 9x10.5x1.0cm, skin graft took well. 100% red/pink wound bed. Minimal tendon exposure. Incision site of the 4th ray with mild wound dehiscence measuring 0.2cm in width But overall improved healing. Moderate serous drainage from entire wound bed. Surrounding tissue with marked improvement in redness. Still with swelling. Yeast like appearance improved. Leg/knee benign. Incision site from 4th ray amputation well approximated. Negative Homans sign Psych: Affect: normal affect Objective Data Meds/Results Medications: Active Medications Generic Name Dose Route Start Last
--- NOTE | 2020-07-25 09:55 | PM.PNORT ---
Progress Note: A&P Assessment and Plan (1) Necrotizing fasciitis of ankle and foot: Code(s): M72.6 - Necrotizing fasciitis Status: Acute Assessment and Plan: 5.5 weeks status post debridement of left foot and application of graft. Wound now with 100% granulation. Still with large size. Improved with use of antifungal powder. Patient indicated for graft application to assist with epithelialization. Wound VAC reapplied today. Continue with activity precautions. We will arrange for graft procedure. Discussed nonoperative and operative treatment options with the patient. Risks and benefits of each as well as alternatives were reviewed. All of the patient's questions were answered. The risks of surgery reviewed including but not limited to: Neurovascular damage, wound complication, infection, blood clot, pulmonary embolus, stroke, myocardial infarction, and anesthetic risks up to and including . Continued pain and possible dysfunction were explained. Specific risks of the procedure including later recurrence of deformity. No guarantees were offered. Patient verbalizes understanding and wishes to proceed. PLAN: Excision all debridement left foot with application of skin graft. 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 Patient reports no new complaints. Wound VAC in place. Review of Systems Constitutional: Constitutional: Reports as per HPI, Denies chills, Denies fatigue and Denies weakness ENT: Reports Normal hearing present and Denies nasal discharge Cardiovascular: Cardiovascular: Denies chest pain, Reports pedal edema ( Left lower extremity) and Denies lightheadedness Respiratory: Respiratory: Denies cough, Denies dyspnea and Denies wheezing Gastrointestinal: Gastrointestinal: Denies abdominal pain, Denies diarrhea, Reports nausea and Reports vomiting Genitourinary: Genitourinary: Denies dysuria and Denies urinary frequency Musculoskeletal: Musculoskeletal: Reports as per HPI Integumentary/Breasts: Skin/Breast: Reports as per HPI, Reports erythema and Reports unusual bruising ( dorsal foot) Neurologic: Reports abnormal gait ( antalgic left lower extremity) and Reports numbness ( numbness left foot) Psychiatric: Psychiatric: Reports as per HPI Endocrine: Endocrine: Reports cold intolerance Hematologic/Lymphatic: Hematologic/Lymphatic: Denies easy bleeding Allergic/Immunologic: Allergic/Immunologic: Reports no additional allergic/immunologic complaints Exam Const: General: healthy appearing; No in distress or confusion Orientation/consciousness: patient oriented x3 and No confusion HENMT: Head: normal to inspection, normocephalic and atraumatic Eyes: Conjunctivae: conjunctivae normal Sclera: sclerae normal Neck: Neck: supple and nontender Resp: Effort & Inspection: normal respiratory effort and no audible wheezes Cardio: Rate: regular rate Rhythm: regular rhythm Skin: General skin exam: no rashes or lesions noted Neuro: General: patient oriented x3 and No confusion Extrem: Right upper extremity: normal to inspection Left upper extremity: normal to inspection
--- NOTE | 2020-08-01 10:31 | PM.IMHP ---
H&P: HPI History of Present Illness Date/Time: 08/01/20 10:31 Chief Complaint: necrotizing fasciitis left foot Narrative: Rhett Spann is a 64 year old male presents for follow-up [facility] outpatient wound clinic for left foot necrotizing fasciitis. 7 weeks status post initial debridement and 5 weeks status post follow-up debridement. He has been treated with a wound VAC dressing with 3 times per week dressing change. He denies fever or chills or other new complaints. Weight-bearing fas been protected with postop shoe. Review of Systems Constitutional: Constitutional: Reports as per HPI, Denies chills, Denies fatigue and Denies weakness ENT: Reports Normal hearing present and Denies nasal discharge Cardiovascular: Cardiovascular: Denies chest pain, Reports pedal edema ( Left lower extremity) and Denies lightheadedness Respiratory: Respiratory: Denies cough, Denies dyspnea and Denies wheezing Gastrointestinal: Gastrointestinal: Denies abdominal pain, Denies diarrhea, Reports nausea and Reports vomiting Genitourinary: Genitourinary: Denies dysuria and Denies urinary frequency Musculoskeletal: Musculoskeletal: Reports as per HPI Integumentary/Breasts: Skin/Breast: Reports as per HPI, Reports erythema and Reports unusual bruising ( dorsal foot) Neurologic: Reports abnormal gait ( antalgic left lower extremity) and Reports numbness ( numbness left foot) Psychiatric: Psychiatric: Reports as per HPI Endocrine: Endocrine: Reports cold intolerance Hematologic/Lymphatic: Hematologic/Lymphatic: Denies easy bleeding Allergic/Immunologic: Allergic/Immunologic: Reports no additional allergic/immunologic complaints PMFSH Past Medical History Medical History Cellulitis of left foot Chronic constipation Diabetes mellitus Diabetic foot ulcer associated with diabetes mellitus due to underlying condition Diabetic peripheral neuropathy Encounter for postoperative care Group beta Strep positive Hypertension Impotence Necrotizing fasciitis of ankle and foot Noncompliance with medication regimen Overweight (BMI 25.0-29.9) Peripheral artery disease Uncontrolled diabetes mellitus Surgical History Surgical History H/O arthroscopy of right knee Family History Family History Father , age 62 Myocardial infarct Lung disease Mother , age 73 Lung disease Sibling , age 67 Lung disease Social History Social History Social History: The patient currently lives at home with his significant other. 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 He has since not been working. Smoking status: Never smoker Second hand tobacco smoke exposure: Yes Alcohol intake: current Drinks per week: 3 Substance use: current Substance use type: marijuana Last use: ONCE A MONTH Additional living arrangements comments: He currently lives with his significant other in [place], [place]. he is not Additional occupation/education comments: see above Gender identity (if verbalized by the patient): Male Spiritual care concerns: No Agree to blood products: Yes Meds Home Medications and Allergies Home Medications Medication Instructions Recorded Confirmed Type OneTouch Verio test strips #30 each NS 05/19/20 Rx blood-glucose meter [OneTouch #1 each NS 05/19/20 Rx Verio Flex meter] insulin syringe,safetyneedle #30 each NS 05/19/20 Rx lancets [OneTouch Delica Plus #30 each NS 05/19/20 Rx Lancet] gabapentin [Neurontin] 300 mg PO TID 06/10/20 08/01/20 History oxycodone-acetaminophen [Percocet] 1 tablet PO Q4H PRN #30 tablet 06/16/20 08/01/20 Rx escitalopram oxalate 10 mg PO
--- NOTE | 2020-08-06 21:08 | PM.PNORT ---
Progress Note: A&P Assessment and Plan (1) Diabetic foot ulcer associated with diabetes mellitus due to underlying condition: Qualifiers: Diabetic foot ulcer location: other Laterality: left Non-pressure ulcer stage: with necrosis of muscle Qualified Code(s): E08.621 - Diabetes mellitus due to underlying condition with foot ulcer; L97.523 - Non-pressure chronic ulcer of other part of left foot with necrosis of muscle Code(s): E08.621 - Diabetes mellitus due to underlying condition with foot ulcer; L97.509 - Non-pressure chronic ulcer of other part of unspecified foot with unspecified severity Status: Acute Assessment and Plan: 2 days s/p lt foot debridement, application of graft reapplication wound vac today, overall stable. Postop shoe BS/ diabetic control. F/U 5 days wound clinic for wound vac change. F/U 08/22/19, for ortho re eval, remove que in wound clinic. (2) Necrotizing fasciitis of ankle and foot: Code(s): M72.6 - Necrotizing fasciitis Status: Acute Subjective Subjective Date/Time Seen: 08/06/20 21:08 F/U lt foot debride and graft on 08/04. No complaints, doing well, wound vac on Exam Const: General: healthy appearing; No in distress or confusion Orientation/consciousness: patient oriented x3 and No confusion HENMT: Head: normal to inspection, normocephalic and atraumatic Eyes: Conjunctivae: conjunctivae normal Sclera: sclerae normal Neck: Neck: supple and nontender Resp: Effort & Inspection: normal respiratory effort and no audible wheezes Cardio: Rate: regular rate Rhythm: regular rhythm Skin: General skin exam: no rashes or lesions noted Neuro: General: patient oriented x3 and No confusion Extrem: Right upper extremity: normal to inspection Left upper extremity: normal to inspection Other: Large wound on the dorsal lateral aspect of the left foot measures 8.1x9.0x1.0cm, skin graft on. Incision site of the 4th ray well healed. Wound vac dressing replaced. Negative Homans sign Psych: Affect: normal affect Objective Data Meds/Results Medications: Active Medications Generic Name Dose Route Start Last Admin Trade Name Freq PRN Reason Stop Dose Admin Metronidazole 250 mg 07/23/20 09:05 Metronidazole 250 Mg Tablet PO 10/21/20 23:59 PRN PRN Wound Care Silver 1 each 06/27/20 09:13 Silver Foam Band (Mepilex Ag 4x4) Bandage TOPICAL 09/27/20 23:59 PRN PRN Wound Care Tolnaftate 1 applic 05/28/20 09:51 Tolnaftate 1% Powder 45 Gm Btl TOPICAL 08/28/20 23:55 PRN PRN Wound Care Wound Care/Dressing Products 1 patch 06/04/20 14:27 Mepilex Transfer Drsg 6x8 TOPICAL 09/04/20 23:55 PRN PRN Wound Care Wound Care/Dressing Products 1 each 06/20/20 15:32 Foam Bandage (Mepilex 4x4) Bandage TOPICAL 09/20/20 23:55 PRN PRN Wound Care
== END 2020-08-21 23:59 | disposition home or self-care (01) ==
LOC: ANHWOC 07:26
PROVIDERS: PCP Family Medicine Adolescent Medicine; Visit Provider Nurse Practitioner Family
DX: E11.621 Type 2 diabetes mellitus with foot ulcer (principal); L97.529 Non-pressure chronic ulcer of other part of left foot with unspecified severity; M72.6 Necrotizing fasciitis
CPT/HCPCS: 29445; 97605; 97606; 99212; A9270; C9803; G0463; J3370; U0003

== ENCOUNTER 2020-11-07 07:21 | Outpatient (RCR) | payer MEDICARE, SELFPAY ==
[2020-08-22 00:03] VITALS: BMI 29.2
--- NOTE | 2020-08-22 09:10 | PM.PNORT ---
Progress Note: A&P Assessment and Plan (1) Diabetic foot ulcer associated with diabetes mellitus due to underlying condition: Qualifiers: Diabetic foot ulcer location: other Laterality: left Non-pressure ulcer stage: with necrosis of muscle Qualified Code(s): E08.621 - Diabetes mellitus due to underlying condition with foot ulcer; L97.523 - Non-pressure chronic ulcer of other part of left foot with necrosis of muscle Code(s): E08.621 - Diabetes mellitus due to underlying condition with foot ulcer; L97.509 - Non-pressure chronic ulcer of other part of unspecified foot with unspecified severity Status: Acute Assessment and Plan: 18 days s/p lt foot debridement, application of graft reapplication wound vac today, overall stable. Postop shoe BS/ diabetic control. F/U 3 days wound clinic for wound vac change. F/U 08/29/19, for ortho re eval, Wound VAC change. (2) Necrotizing fasciitis of ankle and foot: Code(s): M72.6 - Necrotizing fasciitis Status: Acute Subjective Subjective Date/Time Seen: 08/22/20 09:10 Patient returns to [facility] outpatient wound clinic for follow-up of left foot necrotizing fasciitis. Ten weeks status post 4th ray amputation and debridement, 2.5 weeks status post debridement and application of graft. Patient with wound VAC in place. Exam Const: General: healthy appearing; No in distress or confusion Orientation/consciousness: patient oriented x3 and No confusion HENMT: Head: normal to inspection, normocephalic and atraumatic Eyes: Conjunctivae: conjunctivae normal Sclera: sclerae normal Neck: Neck: supple and nontender Resp: Effort & Inspection: normal respiratory effort and no audible wheezes Cardio: Rate: regular rate Rhythm: regular rhythm Skin: General skin exam: no rashes or lesions noted Neuro: General: patient oriented x3 and No confusion Extrem: Right upper extremity: normal to inspection Left upper extremity: normal to inspection Other: Wound on the dorsal lateral aspect of the left foot measures 6.0x4.8x0.3cm. 99% granulation. Mild serous drainage. Incision site of the 4th ray well healed. Wound vac dressing replaced. Negative Homans sign Psych: Affect: normal affect
--- NOTE | 2020-08-29 10:49 | PM.PNORT ---
Progress Note: A&P Assessment and Plan (1) Diabetic foot ulcer associated with diabetes mellitus due to underlying condition: Qualifiers: Diabetic foot ulcer location: other Laterality: left Non-pressure ulcer stage: with necrosis of muscle Qualified Code(s): E08.621 - Diabetes mellitus due to underlying condition with foot ulcer; L97.523 - Non-pressure chronic ulcer of other part of left foot with necrosis of muscle Code(s): E08.621 - Diabetes mellitus due to underlying condition with foot ulcer; L97.509 - Non-pressure chronic ulcer of other part of unspecified foot with unspecified severity Status: Acute Assessment and Plan: 3 weeks, 4 days s/p lt foot debridement and application of graft Wound with continued improvement in dimensions today, no signs of infection. Recommended reapplication wound vac three times weekly. Continue Postop shoe Reviewed importance of BG control and proper nutrition. Follow up in 1 week with ortho. Continue three times weekly dressing changes. (2) Necrotizing fasciitis of ankle and foot: Code(s): M72.6 - Necrotizing fasciitis Status: Acute Subjective Subjective Date/Time Seen: 08/29/20 10:49 Interval history: 64 year old male returns to [facility] outpatient clinic for follow up of left foot necrotizing fasciitis. 12 weeks s/p 4th ray amp and 3.5 weeks s/p debridement/application of graft. Patient tolerating wound VAC dressing changes well. No new complaints. Denies fever, chills, night sweats, nausea, vomiting or diarrhea. Review of Systems Constitutional: Constitutional: Reports as per HPI, Denies chills, Denies fatigue and Denies weakness ENT: Reports Normal hearing present and Denies nasal discharge Cardiovascular: Cardiovascular: Denies chest pain, Reports pedal edema ( Left lower extremity) and Denies lightheadedness Respiratory: Respiratory: Denies cough, Denies dyspnea and Denies wheezing Gastrointestinal: Gastrointestinal: Denies abdominal pain, Denies diarrhea, Reports nausea and Reports vomiting Genitourinary: Genitourinary: Denies dysuria and Denies urinary frequency Musculoskeletal: Musculoskeletal: Reports as per HPI Integumentary/Breasts: Skin/Breast: Reports as per HPI, Reports erythema and Reports unusual bruising ( dorsal foot) Neurologic: Reports abnormal gait ( antalgic left lower extremity) and Reports numbness ( numbness left foot) Psychiatric: Psychiatric: Reports as per HPI Endocrine: Endocrine: Reports cold intolerance Hematologic/Lymphatic: Hematologic/Lymphatic: Denies easy bleeding Allergic/Immunologic: Allergic/Immunologic: Reports no additional allergic/immunologic complaints Exam Const: General: healthy appearing; No in distress or confusion Orientation/consciousness: patient oriented x3 and No confusion HENMT: Head: normal to inspection, normocephalic and atraumatic Eyes: Conjunctivae: conjunctivae normal Sclera: sclerae normal Neck: Neck: supple and nontender Resp: Effort & Inspection: normal respiratory effort and no audible wheezes Cardio: Rate: regular rate Rhythm: regular rhythm Skin: General skin exam: no rashes or lesions noted Neuro: General: patient oriented x3 and No confusion Extrem: Right upper extremity: normal to inspection Left upper extremity: normal to inspection Other: Wound on the dorsal lateral aspect of the left foot measures 5.8x4.4x0.3cm. 99% granulation. Mild serous drainage. Incision site of the 4th ray well healed. Wound vac dressing replaced. Negative Homans sign Psych: Affect: normal affect
--- NOTE | 2020-09-05 15:33 | PM.IMHP ---
H&P: HPI History of Present Illness Date/Time: 09/05/20 15:33 Chief Complaint: Left foot necrotizing fasciitis Narrative: Rhett Spann is a 64 year old male returns for follow-up to [facility] outpatient wound clinic for left foot necrotizing fasciitis. He has continued with the wound VAC dressing. He reports no new complaints. Denies fever or chills. Review of Systems Constitutional: Constitutional: Reports as per HPI, Denies chills, Denies fatigue and Denies weakness ENT: Reports Normal hearing present and Denies nasal discharge Cardiovascular: Cardiovascular: Denies chest pain, Reports pedal edema ( Left lower extremity) and Denies lightheadedness Respiratory: Respiratory: Denies cough, Denies dyspnea and Denies wheezing Gastrointestinal: Gastrointestinal: Denies abdominal pain, Denies diarrhea, Reports nausea and Reports vomiting Genitourinary: Genitourinary: Denies dysuria and Denies urinary frequency Musculoskeletal: Musculoskeletal: Reports as per HPI Integumentary/Breasts: Skin/Breast: Reports as per HPI, Reports erythema and Reports unusual bruising ( dorsal foot) Neurologic: Reports abnormal gait ( antalgic left lower extremity) and Reports numbness ( numbness left foot) Psychiatric: Psychiatric: Reports as per HPI Endocrine: Endocrine: Reports cold intolerance Hematologic/Lymphatic: Hematologic/Lymphatic: Denies easy bleeding Allergic/Immunologic: Allergic/Immunologic: Reports no additional allergic/immunologic complaints PMF[facility] Past Medical History Medical History Cellulitis of left foot Chronic constipation Diabetes mellitus Diabetic foot ulcer associated with diabetes mellitus due to underlying condition Diabetic peripheral neuropathy Encounter for postoperative care Group beta Strep positive Hypertension Impotence Necrotizing fasciitis of ankle and foot Noncompliance with medication regimen Overweight (BMI 25.0-29.9) Peripheral artery disease Uncontrolled diabetes mellitus Surgical History Surgical History H/O arthroscopy of right knee Family History Family History Father , age 62 Myocardial infarct Lung disease Mother , age 73 Lung disease Sibling , age 67 Lung disease Social History Social History Social History: The patient currently lives at home with his significant other. 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 He has since not been working. Smoking status: Never smoker Second hand tobacco smoke exposure: Yes Alcohol intake: current Drinks per week: 3 Substance use: current Substance use type: marijuana Last use: ONCE A MONTH Additional living arrangements comments: He currently lives with his significant other in [place], [place]. he is not Additional occupation/education comments: see above Gender identity (if verbalized by the patient): Male Spiritual care concerns: No Agree to blood products: Yes Meds Home Medications and Allergies Home Medications Medication Instructions Recorded Confirmed Type OneTouch Verio test strips #30 each NS 05/19/20 Rx blood-glucose meter [OneTouch #1 each NS 05/19/20 Rx Verio Flex meter] insulin syringe,safetyneedle #30 each NS 05/19/20 Rx lancets [OneTouch Delica Plus #30 each NS 05/19/20 Rx Lancet] gabapentin [Neurontin] 300 mg PO TID 06/10/20 08/04/20 History oxycodone-acetaminophen [Percocet] 1 tablet PO Q4H PRN #30 tablet 06/16/20 08/04/20 Rx escitalopram oxalate 10 mg PO QAM 08/01/20 08/04/20 History glimepiride 1 mg PO QAM 08/01/20 08/04/20 History metformin [Glucophage] 1,000 mg PO BID 08/01/20 08/04/20 History Allergies Allerg
--- NOTE | 2020-09-08 09:40 | PCWOUND ---
WOCN NOTE Patient left message to cancel due to illness. called back to reschedule.
--- NOTE | 2020-09-12 08:40 | PM.PNORT ---
Progress Note: A&P Assessment and Plan (1) Diabetic foot ulcer associated with diabetes mellitus due to underlying condition: Qualifiers: Diabetic foot ulcer location: other Laterality: left Non-pressure ulcer stage: with necrosis of muscle Qualified Code(s): E08.621 - Diabetes mellitus due to underlying condition with foot ulcer; L97.523 - Non-pressure chronic ulcer of other part of left foot with necrosis of muscle Code(s): E08.621 - Diabetes mellitus due to underlying condition with foot ulcer; L97.509 - Non-pressure chronic ulcer of other part of unspecified foot with unspecified severity Status: Acute Assessment and Plan: 12 weeks s/p ray amp/ debride. Wound with continued improvement in dimensions today, no signs of infection. Continue daily dressing changes with Ashely. Discontinue wound VAC completely. Patient may wash. Continue Postop shoe Follow up in 1 week for re-evaluation. Reviewed importance of BG control and proper nutrition. (2) Necrotizing fasciitis of ankle and foot: Code(s): M72.6 - Necrotizing fasciitis Status: Acute Subjective Subjective Date/Time Seen: 09/12/20 08:40 Patient returns for follow-up of left foot wound [facility] outpatient wound clinic. No new complaints. Patient has been able to shower. He is using a postoperative shoe. Wound VAC was stopped a week ago. Exam Const: General: healthy appearing; No in distress or confusion Orientation/consciousness: patient oriented x3 and No confusion HENMT: Head: normal to inspection, normocephalic and atraumatic Eyes: Conjunctivae: conjunctivae normal Sclera: sclerae normal Neck: Neck: supple and nontender Resp: Effort & Inspection: normal respiratory effort and no audible wheezes Cardio: Rate: regular rate Rhythm: regular rhythm Skin: General skin exam: no rashes or lesions noted Neuro: General: patient oriented x3 and No confusion Extrem: Right upper extremity: normal to inspection Left upper extremity: normal to inspection Other: Wound dorsal aspect of the left foot measures 5.3x4.0x0.2cm. 99% granulation. Mild serous drainage. Incision site of the 4th ray well healed. Incision extending to the anterior ankle well-healed. Negative Homans sign Psych: Affect: normal affect
--- NOTE | 2020-09-19 08:42 | PM.IMHP ---
H&P: HPI History of Present Illness Date/Time: 09/19/20 08:42 Chief Complaint: Left foot infection Narrative: Rhett Spann is a 64 year old maleWho returns to [facility] for follow-up left foot necrotizing fasciitis wound. 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 Performing daily dressing changes at home and twice weekly in the wound clinic. Denies fever chills. Denies pain. Denies any new problems. Review of Systems Constitutional: Constitutional: Reports as per HPI, Denies chills, Denies fatigue and Denies weakness ENT: Reports Normal hearing present and Denies nasal discharge Cardiovascular: Cardiovascular: Denies chest pain, Reports pedal edema ( Left lower extremity) and Denies lightheadedness Respiratory: Respiratory: Denies cough, Denies dyspnea and Denies wheezing Gastrointestinal: Gastrointestinal: Denies abdominal pain, Denies diarrhea, Reports nausea and Reports vomiting Genitourinary: Genitourinary: Denies dysuria and Denies urinary frequency Musculoskeletal: Musculoskeletal: Reports as per HPI Integumentary/Breasts: Skin/Breast: Reports as per HPI, Reports erythema and Reports unusual bruising ( dorsal foot) Neurologic: Reports abnormal gait ( antalgic left lower extremity) and Reports numbness ( numbness left foot) Psychiatric: Psychiatric: Reports as per HPI Endocrine: Endocrine: Reports cold intolerance Hematologic/Lymphatic: Hematologic/Lymphatic: Denies easy bleeding Allergic/Immunologic: Allergic/Immunologic: Reports no additional allergic/immunologic complaints [facility] Past Medical History Medical History Cellulitis of left foot Chronic constipation Diabetes mellitus Diabetic foot ulcer associated with diabetes mellitus due to underlying condition Diabetic peripheral neuropathy Encounter for postoperative care Group beta Strep positive Hypertension Impotence Necrotizing fasciitis of ankle and foot Noncompliance with medication regimen Overweight (BMI 25.0-29.9) Peripheral artery disease Uncontrolled diabetes mellitus Surgical History Surgical History H/O arthroscopy of right knee Family History Family History Father , age 62 Myocardial infarct Lung disease Mother , age 73 Lung disease Sibling , age 67 Lung disease Social History Social History Social History: The patient currently lives at home with his significant other. 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 He has since not been working. Smoking status: Never smoker Second hand tobacco smoke exposure: Yes Alcohol intake: current Drinks per week: 3 Substance use: current Substance use type: marijuana Last use: ONCE A MONTH Additional living arrangements comments: He currently lives with his significant other in [place], [place]. he is not Additional occupation/education comments: see above Gender identity (if verbalized by the patient): Male Spiritual care concerns: No Agree to blood products: Yes Meds Home Medications and Allergies Home Medications Medication Instructions Recorded Confirmed Type OneTouch Verio test strips #30 each NS 05/19/20 Rx blood-glucose meter [OneTouch #1 each NS 05/19/20 Rx Verio Flex meter] insulin syringe,safetyneedle #30 each NS 05/19/20 Rx lancets [OneTouch Delica Plus #30 each NS 05/19/20 Rx Lancet] gabapentin [Neurontin] 300 mg PO TID 06/10/20 08/04/20 History oxycodone-acetaminophen [Percocet] 1 tablet PO Q4H PRN #30 tablet 06/16/20 08/04/20 Rx escitalopram oxalate 10 mg PO QAM 08/01/20 08/04/20 History glimepiride 1 mg PO QAM 08/01/20 08/04/20 History metformin [Glucophage]
--- NOTE | 2020-09-26 09:38 | PM.IMHP ---
H&P: HPI History of Present Illness Date/Time: 09/26/20 09:38 Chief Complaint: left necrotizing fasciitis wound Narrative: Rhett Spann is a 64 year old male Who follows up in [place] wound clinic today for re-evaluation of left dorsal forefoot wound status post necrotizing fasciitis and 4th ray amputation. The patient denies signs or symptoms of worsening infection at this time. He denies fever, chills, night sweats, nausea, vomiting or diarrhea. He is changing his dressing changes daily at home independently and then followed up in [place] wound clinic on Mondays and Fridays for evaluation. No new concerns today. Review of Systems Constitutional: Constitutional: Reports as per HPI, Denies chills, Denies fatigue and Denies weakness ENT: Reports Normal hearing present and Denies nasal discharge Cardiovascular: Cardiovascular: Denies chest pain, Reports pedal edema ( Left lower extremity) and Denies lightheadedness Respiratory: Respiratory: Denies cough, Denies dyspnea and Denies wheezing Gastrointestinal: Gastrointestinal: Denies abdominal pain, Denies diarrhea, Reports nausea and Reports vomiting Genitourinary: Genitourinary: Denies dysuria and Denies urinary frequency Musculoskeletal: Musculoskeletal: Reports as per HPI Integumentary/Breasts: Skin/Breast: Reports as per HPI, Reports erythema and Reports unusual bruising ( dorsal foot) Neurologic: Reports abnormal gait ( antalgic left lower extremity) and Reports numbness ( numbness left foot) Psychiatric: Psychiatric: Reports as per HPI Endocrine: Endocrine: Reports cold intolerance Hematologic/Lymphatic: Hematologic/Lymphatic: Denies easy bleeding Allergic/Immunologic: Allergic/Immunologic: Reports no additional allergic/immunologic complaints [facility] Past Medical History Medical History Cellulitis of left foot Chronic constipation Diabetes mellitus Diabetic foot ulcer associated with diabetes mellitus due to underlying condition Diabetic peripheral neuropathy Encounter for postoperative care Group beta Strep positive Hypertension Impotence Necrotizing fasciitis of ankle and foot Noncompliance with medication regimen Overweight (BMI 25.0-29.9) Peripheral artery disease Uncontrolled diabetes mellitus Surgical History Surgical History H/O arthroscopy of right knee Family History Family History Father , age 62 Myocardial infarct Lung disease Mother , age 73 Lung disease Sibling , age 67 Lung disease Social History Social History Social History: The patient currently lives at home with his significant other. 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 He has since not been working. Smoking status: Never smoker Second hand tobacco smoke exposure: Yes Alcohol intake: current Drinks per week: 3 Substance use: current Substance use type: marijuana Last use: ONCE A MONTH Additional living arrangements comments: He currently lives with his significant other in [place], [place]. he is not Additional occupation/education comments: see above Gender identity (if verbalized by the patient): Male Spiritual care concerns: No Agree to blood products: Yes Meds Home Medications and Allergies Home Medications Medication Instructions Recorded Confirmed Type OneTouch Verio test strips #30 each NS 05/19/20 Rx blood-glucose meter [OneTouch #1 each NS 05/19/20 Rx Verio Flex meter] insulin syringe,safetyneedle #30 each NS 05/19/20 Rx lancets [OneTouch Delica Plus #30 each NS 05/19/20 Rx Lancet] gabapentin [Neurontin] 300 mg PO TID 06/10/20 08/04/20 History oxycodone-acetaminophen [P
--- NOTE | 2020-10-03 10:24 | PM.PNORT ---
Progress Note: A&P Assessment and Plan (1) Diabetic foot ulcer associated with diabetes mellitus due to underlying condition: Qualifiers: Diabetic foot ulcer location: other Laterality: left Non-pressure ulcer stage: with necrosis of muscle Qualified Code(s): E08.621 - Diabetes mellitus due to underlying condition with foot ulcer; L97.523 - Non-pressure chronic ulcer of other part of left foot with necrosis of muscle Code(s): E08.621 - Diabetes mellitus due to underlying condition with foot ulcer; L97.509 - Non-pressure chronic ulcer of other part of unspecified foot with unspecified severity Status: Acute Assessment and Plan: 15 weeks s/p ray amp/ debride. Eight weeks status post debridement with graft placement. Wound with continued improvement in dimensions today, no signs of infection. Endoform and Ashely applied today with sterile dressing. Continue daily dressing changes with Ashely. Patient may wash. Continue Postop shoe Follow up in 1 week for re-evaluation. Reviewed importance of BG control and proper nutrition. (2) Necrotizing fasciitis of ankle and foot: Code(s): M72.6 - Necrotizing fasciitis Status: Acute Subjective Subjective Date/Time Seen: 10/03/20 10:24 Post Op day: 8 wks Principal diagnosis: Left foot necrotizing fasciitis Interval history: patient returns to [facility] outpatient wound clinic for re-evaluation left foot. He has continued with twice weekly dressing changes. He has no interim complaints. No fever or chills. Exam Const: General: healthy appearing; No in distress or confusion Orientation/consciousness: patient oriented x3 and No confusion HENMT: Head: normal to inspection, normocephalic and atraumatic Eyes: Conjunctivae: conjunctivae normal Sclera: sclerae normal Neck: Neck: supple and nontender Resp: Effort & Inspection: normal respiratory effort and no audible wheezes Cardio: Rate: regular rate Rhythm: regular rhythm Neuro: General: patient oriented x3 and No confusion Extrem: Right upper extremity: normal to inspection Left upper extremity: normal to inspection Other: Wound on the dorsal aspect of the left forefoot measures 4.5 x 3.0 x 0.2 cm. 100% granulation tissue. Mild serous drainage. No purulence, no malodor. No visible tendon exposure. Incision site of the 4th ray amputation is well healed. Incision which extended into the anterior proximal ankle is also well healed. Negative Homans sign. Patient does have new maceration on the medial midfoot which is consistent with yeast. Psych: Affect: normal affect Objective Data Meds/Results Medications: Active Medications Generic Name Dose Route Start Last Admin Trade Name Freq PRN Reason Stop Dose Admin Clotrimazole 1 applic 09/26/20 09:00 Betamethasone/Clotrimazole Cr 15 Gm Tube TOPICAL 12/24/20 23:55 PRN PRN Wound Care Wound Care/Dressing Products 1 patch 09/12/20 09:33 Mepilex Transfer Drsg 6x8 TOPICAL 12/11/20 23:55 PRN PRN Wound Care COUNT INCLUDES THE [facility] Medical History Cellulitis of left foot Chronic constipation Diabetes mellitus Diabetic foot ulcer associated with diabetes mellitus due to underlying condition Diabetic peripheral neuropathy Encounter for postoperative care Group beta Strep positive Hypertension Impotence Necrotizing fasciitis of ankle and foot Noncompliance with medication regimen Overweight (BMI 25.0-29.9) Peripheral artery disease Uncontrolled diabetes mellitus Surgical History H/O arthroscopy of right knee Family History Father , age 62 Myocardial infarct Lung disease Mother , age 73 Lung disease Sibling , age 67 Lung disease Social History Social History (Reviewed 10/03/20 @ 10:28 by Liam Salazar Gr
--- NOTE | 2020-10-10 09:20 | PM.IMHP ---
H&P: HPI History of Present Illness Date/Time: 10/10/20 09:20 Chief Complaint: Left foot necrotizing fasciitis wound Narrative: Rhett Spann is a 64 year old male follows up in [place] wound clinic today for re-evaluation of left dorsal forefoot wound status post necrotizing fasciitis and 4th ray amputation. The patient denies signs or symptoms of worsening infection at this time. He denies fever, chills, night sweats, nausea, vomiting or diarrhea. He is changing his dressing changes daily at home independently and then followed up in [place] wound clinic on Mondays and Fridays for evaluation. No new concerns today. Review of Systems Constitutional: Constitutional: Reports as per HPI, Denies chills, Denies fatigue and Denies weakness ENT: Reports Normal hearing present and Denies nasal discharge Cardiovascular: Cardiovascular: Denies chest pain, Reports pedal edema ( Left lower extremity) and Denies lightheadedness Respiratory: Respiratory: Denies cough, Denies dyspnea and Denies wheezing Gastrointestinal: Gastrointestinal: Denies abdominal pain, Denies diarrhea, Reports nausea and Reports vomiting Genitourinary: Genitourinary: Denies dysuria and Denies urinary frequency Musculoskeletal: Musculoskeletal: Reports as per HPI Integumentary/Breasts: Skin/Breast: Reports as per HPI, Reports erythema and Reports unusual bruising ( dorsal foot) Neurologic: Reports abnormal gait ( antalgic left lower extremity) and Reports numbness ( numbness left foot) Psychiatric: Psychiatric: Reports as per HPI Endocrine: Endocrine: Reports cold intolerance Hematologic/Lymphatic: Hematologic/Lymphatic: Denies easy bleeding Allergic/Immunologic: Allergic/Immunologic: Reports no additional allergic/immunologic complaints [facility] Past Medical History Medical History Cellulitis of left foot Chronic constipation Diabetes mellitus Diabetic foot ulcer associated with diabetes mellitus due to underlying condition Diabetic peripheral neuropathy Encounter for postoperative care Group beta Strep positive Hypertension Impotence Necrotizing fasciitis of ankle and foot Noncompliance with medication regimen Overweight (BMI 25.0-29.9) Peripheral artery disease Uncontrolled diabetes mellitus Surgical History Surgical History H/O arthroscopy of right knee Family History Family History Father , age 62 Myocardial infarct Lung disease Mother , age 73 Lung disease Sibling , age 67 Lung disease Social History Social History Social History: The patient currently lives at home with his significant other. 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 He has since not been working. Smoking status: Never smoker Second hand tobacco smoke exposure: Yes Alcohol intake: current Drinks per week: 3 Substance use: current Substance use type: marijuana Last use: ONCE A MONTH Additional living arrangements comments: He currently lives with his significant other in [place], [place]. he is not Additional occupation/education comments: see above Gender identity (if verbalized by the patient): Male Spiritual care concerns: No Agree to blood products: Yes Meds Home Medications and Allergies Home Medications Medication Instructions Recorded Confirmed Type OneTouch Verio test strips #30 each NS 05/19/20 Rx blood-glucose meter [OneTouch #1 each NS 05/19/20 Rx Verio Flex meter] insulin syringe,safetyneedle #30 each NS 05/19/20 Rx lancets [OneTouch Delica Plus #30 each NS 05/19/20 Rx Lancet] gabapentin [Neurontin] 300 mg PO TID 06/10/20 08/04/20 History oxycodone-acetaminophe
--- NOTE | 2020-10-17 09:17 | PM.IMHP ---
H&P: HPI History of Present Illness Date/Time: 10/17/20 09:17 Follow-up [facility] outpatient wound clinic for left foot from necrotizing fasciitis. 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 Patient notes no interval problems. There was increased swelling 4 days ago which he states now has improved. Chief Complaint: Left foot necrotizing fasciitis Narrative: Rhett Spann is a 64 year old male [facility] Past Medical History Medical History Cellulitis of left foot Chronic constipation Diabetes mellitus Diabetic foot ulcer associated with diabetes mellitus due to underlying condition Diabetic peripheral neuropathy Encounter for postoperative care Group beta Strep positive Hypertension Impotence Necrotizing fasciitis of ankle and foot Noncompliance with medication regimen Overweight (BMI 25.0-29.9) Peripheral artery disease Uncontrolled diabetes mellitus Surgical History Surgical History H/O arthroscopy of right knee Family History Family History Father , age 62 Myocardial infarct Lung disease Mother , age 73 Lung disease Sibling , age 67 Lung disease Social History Social History Social History: The patient currently lives at home with his significant other. 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 He has since not been working. Smoking status: Never smoker Second hand tobacco smoke exposure: Yes Alcohol intake: current Drinks per week: 3 Substance use: current Substance use type: marijuana Last use: ONCE A MONTH Additional living arrangements comments: He currently lives with his significant other in [place], [place]. he is not Additional occupation/education comments: see above Gender identity (if verbalized by the patient): Male Spiritual care concerns: No Agree to blood products: Yes Meds Home Medications and Allergies Home Medications Medication Instructions Recorded Confirmed Type OneTouch Verio test strips #30 each NS 05/19/20 Rx blood-glucose meter [OneTouch #1 each NS 05/19/20 Rx Verio Flex meter] insulin syringe,safetyneedle #30 each NS 05/19/20 Rx lancets [OneTouch Delica Plus #30 each NS 05/19/20 Rx Lancet] gabapentin [Neurontin] 300 mg PO TID 06/10/20 08/04/20 History oxycodone-acetaminophen [Percocet] 1 tablet PO Q4H PRN #30 tablet 06/16/20 08/04/20 Rx escitalopram oxalate 10 mg PO QAM 08/01/20 08/04/20 History glimepiride 1 mg PO QAM 08/01/20 08/04/20 History metformin [Glucophage] 1,000 mg PO BID 08/01/20 08/04/20 History Allergies Allergy/AdvReac Type Severity Reaction Status Date / Time No Known Allergies Allergy Verified 08/04/20 08:01 Exam Const: General: healthy appearing; No in distress or confusion Orientation/consciousness: patient oriented x3 and No confusion HENMT: Head: normal to inspection, normocephalic and atraumatic Eyes: Conjunctivae: conjunctivae normal Sclera: sclerae normal Neck: Neck: supple and nontender Resp: Effort & Inspection: normal respiratory effort and no audible wheezes Cardio: Rate: regular rate Rhythm: regular rhythm Neuro: General: patient oriented x3 and No confusion Extrem: Right upper extremity: normal to inspection Left upper extremity: normal to inspection Other: Wound on the dorsal aspect of the left forefoot measures 4.3 x 2.5 x 0.2 cm. 100% granulation tissue. Mild serous drainage. No purulence, no malodor. No visible tendon exposure. Incision site of the 4th ray amputation is well healed. Incision which extended into the anterior proximal ankle is also well healed. Negative Homans sign.
--- NOTE | 2020-10-24 09:10 | PM.IMHP ---
H&P: HPI History of Present Illness Date/Time: 10/24/20 09:10 Chief Complaint: left foot necrotizing fasciitis Narrative: Follow-up [facility] outpatient wound clinic for left foot necrotizing fasciitis. 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 Patient notes no interval problems. There was increased swelling he states now has improved. Review of Systems Constitutional: Constitutional: Reports as per HPI, Denies chills, Denies fatigue and Denies weakness ENT: Reports Normal hearing present and Denies nasal discharge Cardiovascular: Cardiovascular: Denies chest pain, Reports pedal edema ( Left lower extremity) and Denies lightheadedness Respiratory: Respiratory: Denies cough, Denies dyspnea and Denies wheezing Gastrointestinal: Gastrointestinal: Denies abdominal pain, Denies diarrhea, Reports nausea and Reports vomiting Genitourinary: Genitourinary: Denies dysuria and Denies urinary frequency Musculoskeletal: Musculoskeletal: Reports as per HPI Integumentary/Breasts: Skin/Breast: Reports as per HPI, Reports erythema and Reports unusual bruising ( dorsal foot) Neurologic: Reports abnormal gait ( antalgic left lower extremity) and Reports numbness ( numbness left foot) Psychiatric: Psychiatric: Reports as per HPI Endocrine: Endocrine: Reports cold intolerance Hematologic/Lymphatic: Hematologic/Lymphatic: Denies easy bleeding Allergic/Immunologic: Allergic/Immunologic: Reports no additional allergic/immunologic complaints [facility] Past Medical History Medical History Cellulitis of left foot Chronic constipation Diabetes mellitus Diabetic foot ulcer associated with diabetes mellitus due to underlying condition Diabetic peripheral neuropathy Encounter for postoperative care Group beta Strep positive Hypertension Impotence Necrotizing fasciitis of ankle and foot Noncompliance with medication regimen Overweight (BMI 25.0-29.9) Peripheral artery disease Uncontrolled diabetes mellitus Surgical History Surgical History H/O arthroscopy of right knee Family History Family History Father , age 62 Myocardial infarct Lung disease Mother , age 73 Lung disease Sibling , age 67 Lung disease Social History Social History Social History: The patient currently lives at home with his significant other. 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 He has since not been working. Smoking status: Never smoker Second hand tobacco smoke exposure: Yes Alcohol intake: current Drinks per week: 3 Substance use: current Substance use type: marijuana Last use: ONCE A MONTH Additional living arrangements comments: He currently lives with his significant other in [place], [place]. he is not Additional occupation/education comments: see above Gender identity (if verbalized by the patient): Male Spiritual care concerns: No Agree to blood products: Yes Meds Home Medications and Allergies Home Medications Medication Instructions Recorded Confirmed Type OneTouch Verio test strips #30 each NS 05/19/20 Rx blood-glucose meter [OneTouch #1 each NS 05/19/20 Rx Verio Flex meter] insulin syringe,safetyneedle #30 each NS 05/19/20 Rx lancets [OneTouch Delica Plus #30 each NS 05/19/20 Rx Lancet] gabapentin [Neurontin] 300 mg PO TID 06/10/20 08/04/20 History oxycodone-acetaminophen [Percocet] 1 tablet PO Q4H PRN #30 tablet 06/16/20 08/04/20 Rx escitalopram oxalate 10 mg PO QAM 08/01/20 08/04/20 History glimepiride 1 mg PO QAM 08/01/20 08/04/20 History metformin [Glucophage] 1,000 mg PO BID 08/01/20 08/04/20 History
--- NOTE | 2020-10-31 12:37 | PM.IMHP ---
H&P: HPI History of Present Illness Date/Time: 10/31/20 12:37 64-year-old male follows up in [place] wound clinic today 12 weeks, 4 days status post I&D and graft application of the left necrotizing fasciitis wound. Patient has been performing daily dressing changes. He has decreased his visits with [facility] to 2 times per week. He denies fever, chills, night sweats, nausea, vomiting or diarrhea. No new concerns. Chief Complaint: Left dorsal necrotizing fasciitis wound Review of Systems Constitutional: Constitutional: Reports as per HPI, Denies chills, Denies fatigue and Denies weakness ENT: Reports Normal hearing present and Denies nasal discharge Cardiovascular: Cardiovascular: Denies chest pain, Reports pedal edema ( Left lower extremity) and Denies lightheadedness Respiratory: Respiratory: Denies cough, Denies dyspnea and Denies wheezing Gastrointestinal: Gastrointestinal: Denies abdominal pain, Denies diarrhea, Reports nausea and Reports vomiting Genitourinary: Genitourinary: Denies dysuria and Denies urinary frequency Musculoskeletal: Musculoskeletal: Reports as per HPI Integumentary/Breasts: Skin/Breast: Reports as per HPI, Reports erythema and Reports unusual bruising ( dorsal foot) Neurologic: Reports abnormal gait ( antalgic left lower extremity) and Reports numbness ( numbness left foot) Psychiatric: Psychiatric: Reports as per HPI Endocrine: Endocrine: Reports cold intolerance Hematologic/Lymphatic: Hematologic/Lymphatic: Denies easy bleeding Allergic/Immunologic: Allergic/Immunologic: Reports no additional allergic/immunologic complaints [facility] Past Medical History Medical History Cellulitis of left foot Chronic constipation Diabetes mellitus Diabetic foot ulcer associated with diabetes mellitus due to underlying condition Diabetic peripheral neuropathy Encounter for postoperative care Group beta Strep positive Hypertension Impotence Necrotizing fasciitis of ankle and foot Noncompliance with medication regimen Overweight (BMI 25.0-29.9) Peripheral artery disease Uncontrolled diabetes mellitus Surgical History Surgical History H/O arthroscopy of right knee Family History Family History Father , age 62 Myocardial infarct Lung disease Mother , age 73 Lung disease Sibling , age 67 Lung disease Social History Social History Social History: The patient currently lives at home with his significant other. 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 He has since not been working. Smoking status: Never smoker Second hand tobacco smoke exposure: Yes Alcohol intake: current Drinks per week: 3 Substance use: current Substance use type: marijuana Last use: ONCE A MONTH Additional living arrangements comments: He currently lives with his significant other in [place], [place]. he is not Additional occupation/education comments: see above Gender identity (if verbalized by the patient): Male Spiritual care concerns: No Agree to blood products: Yes Meds Home Medications and Allergies Home Medications Medication Instructions Recorded Confirmed Type OneTouch Verio test strips #30 each NS 05/19/20 Rx blood-glucose meter [OneTouch #1 each NS 05/19/20 Rx Verio Flex meter] insulin syringe,safetyneedle #30 each NS 05/19/20 Rx lancets [OneTouch Delica Plus #30 each NS 05/19/20 Rx Lancet] gabapentin [Neurontin] 300 mg PO TID 06/10/20 08/04/20 History oxycodone-acetaminophen [Percocet] 1 tablet PO Q4H PRN #30 tablet 06/16/20 08/04/20 Rx escitalopram oxalate 10 mg PO QAM 08/01/20 08/04/20 History glimepirid
--- NOTE | 2020-11-07 11:59 | PM.IMHP ---
H&P: HPI History of Present Illness Date/Time: 11/07/20 11:59 follow-up visit [facility] outpatient wound clinic for left foot necrotizing fasciitis. Patient reports little bit of swelling noted in the interim. He has been little bit more active. No systemic complaints. Chief Complaint: left foot necrotizing fasciitis Review of Systems Constitutional: Constitutional: Reports as per HPI, Denies chills, Denies fatigue and Denies weakness ENT: Reports Normal hearing present and Denies nasal discharge Cardiovascular: Cardiovascular: Denies chest pain, Reports pedal edema ( Left lower extremity) and Denies lightheadedness Respiratory: Respiratory: Denies cough, Denies dyspnea and Denies wheezing Gastrointestinal: Gastrointestinal: Denies abdominal pain, Denies diarrhea, Reports nausea and Reports vomiting Genitourinary: Genitourinary: Denies dysuria and Denies urinary frequency Musculoskeletal: Musculoskeletal: Reports as per HPI Integumentary/Breasts: Skin/Breast: Reports as per HPI, Reports erythema and Reports unusual bruising ( dorsal foot) Neurologic: Reports abnormal gait ( antalgic left lower extremity) and Reports numbness ( numbness left foot) Psychiatric: Psychiatric: Reports as per HPI Endocrine: Endocrine: Reports cold intolerance Hematologic/Lymphatic: Hematologic/Lymphatic: Denies easy bleeding Allergic/Immunologic: Allergic/Immunologic: Reports no additional allergic/immunologic complaints [facility] Past Medical History Medical History Cellulitis of left foot Chronic constipation Diabetes mellitus Diabetic foot ulcer associated with diabetes mellitus due to underlying condition Diabetic peripheral neuropathy Encounter for postoperative care Group beta Strep positive Hypertension Impotence Necrotizing fasciitis of ankle and foot Noncompliance with medication regimen Overweight (BMI 25.0-29.9) Peripheral artery disease Uncontrolled diabetes mellitus Surgical History Surgical History H/O arthroscopy of right knee Family History Family History Father , age 62 Myocardial infarct Lung disease Mother , age 73 Lung disease Sibling , age 67 Lung disease Social History Social History Social History: The patient currently lives at home with his significant other. 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 He has since not been working. Smoking status: Never smoker Second hand tobacco smoke exposure: Yes Alcohol intake: current Drinks per week: 3 Substance use: current Substance use type: marijuana Last use: ONCE A MONTH Additional living arrangements comments: He currently lives with his significant other in [place], [place]. he is not Additional occupation/education comments: see above Gender identity (if verbalized by the patient): Male Spiritual care concerns: No Agree to blood products: Yes Meds Home Medications and Allergies Home Medications Medication Instructions Recorded Confirmed Type OneTouch Verio test strips #30 each NS 05/19/20 Rx blood-glucose meter [OneTouch #1 each NS 05/19/20 Rx Verio Flex meter] insulin syringe,safetyneedle #30 each NS 05/19/20 Rx lancets [OneTouch Delica Plus #30 each NS 05/19/20 Rx Lancet] gabapentin [Neurontin] 300 mg PO TID 06/10/20 08/04/20 History oxycodone-acetaminophen [Percocet] 1 tablet PO Q4H PRN #30 tablet 06/16/20 08/04/20 Rx escitalopram oxalate 10 mg PO QAM 08/01/20 08/04/20 History glimepiride 1 mg PO QAM 08/01/20 08/04/20 History metformin [Glucophage] 1,000 mg PO BID 08/01/20 08/04/20 History Allergies Allergy/AdvReac Type Severity Reaction Status Date
== END 2020-11-20 23:59 | disposition home or self-care (01) ==
LOC: ANHWOC 07:21
PROVIDERS: PCP Family Medicine Adolescent Medicine; Visit Provider Nurse Practitioner Family
DX: E11.621 Type 2 diabetes mellitus with foot ulcer (principal); L97.529 Non-pressure chronic ulcer of other part of left foot with unspecified severity; M72.6 Necrotizing fasciitis
CPT/HCPCS: 97605; 99211; 99212; A9270; G0463

== ENCOUNTER 2021-01-30 07:41 | Outpatient (RCR) | payer MEDICARE, SELFPAY ==
[2020-11-21 00:04] VITALS: BMI 29.2
--- NOTE | 2020-11-21 09:33 | PM.IMHP ---
H&P: HPI History of Present Illness Date/Time: 11/21/20 09:33 Chief Complaint: Necrotizing fasciitis left foot Narrative: patient returns for follow-up [facility] outpatient wound clinic for left foot necrotizing fasciitis. Continues with dressing changes. No interval complaints. No fever or chills. Review of Systems Constitutional: Constitutional: Reports as per HPI, Denies chills, Denies fatigue and Denies weakness ENT: Reports Normal hearing present and Denies nasal discharge Cardiovascular: Cardiovascular: Denies chest pain, Reports pedal edema ( Left lower extremity) and Denies lightheadedness Respiratory: Respiratory: Denies cough, Denies dyspnea and Denies wheezing Gastrointestinal: Gastrointestinal: Denies abdominal pain, Denies diarrhea, Reports nausea and Reports vomiting Genitourinary: Genitourinary: Denies dysuria and Denies urinary frequency Musculoskeletal: Musculoskeletal: Reports as per HPI Integumentary/Breasts: Skin/Breast: Reports as per HPI, Reports erythema and Reports unusual bruising ( dorsal foot) Neurologic: Reports abnormal gait ( antalgic left lower extremity) and Reports numbness ( numbness left foot) Psychiatric: Psychiatric: Reports as per HPI Endocrine: Endocrine: Reports cold intolerance Hematologic/Lymphatic: Hematologic/Lymphatic: Denies easy bleeding Allergic/Immunologic: Allergic/Immunologic: Reports no additional allergic/immunologic complaints [facility] Past Medical History Medical History Cellulitis of left foot Chronic constipation Diabetes mellitus Diabetic foot ulcer associated with diabetes mellitus due to underlying condition Diabetic peripheral neuropathy Encounter for postoperative care Group beta Strep positive Hypertension Impotence Necrotizing fasciitis of ankle and foot Noncompliance with medication regimen Overweight (BMI 25.0-29.9) Peripheral artery disease Uncontrolled diabetes mellitus Surgical History Surgical History H/O arthroscopy of right knee Family History Family History Father , age 62 Myocardial infarct Lung disease Mother , age 73 Lung disease Sibling , age 67 Lung disease Social History Social History Social History: The patient currently lives at home with his significant other. 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 He has since not been working. Smoking status: Never smoker Second hand tobacco smoke exposure: Yes Alcohol intake: current Drinks per week: 3 Substance use: current Substance use type: marijuana Last use: ONCE A MONTH Additional living arrangements comments: He currently lives with his significant other in [place], [place]. he is not Additional occupation/education comments: see above Gender identity (if verbalized by the patient): Male Spiritual care concerns: No Agree to blood products: Yes Meds Home Medications and Allergies Home Medications Medication Instructions Recorded Confirmed Type OneTouch Verio test strips #30 each NS 05/19/20 Rx blood-glucose meter [OneTouch #1 each NS 05/19/20 Rx Verio Flex meter] insulin syringe,safetyneedle #30 each NS 05/19/20 Rx lancets [OneTouch Delica Plus #30 each NS 05/19/20 Rx Lancet] gabapentin [Neurontin] 300 mg PO TID 06/10/20 08/04/20 History oxycodone-acetaminophen [Percocet] 1 tablet PO Q4H PRN #30 tablet 06/16/20 08/04/20 Rx escitalopram oxalate 10 mg PO QAM 08/01/20 08/04/20 History glimepiride 1 mg PO QAM 08/01/20 08/04/20 History metformin [Glucophage] 1,000 mg PO BID 08/01/20 08/04/20 History Allergies Allergy/AdvReac Type Severity Reaction Status Date / Time No Know
--- NOTE | 2020-12-05 09:10 | PM.IMHP ---
H&P: HPI History of Present Illness Date/Time: 12/05/20 09:10 Re-evaluation [facility] outpatient wound clinic for left foot necrotizing fasciitis. Patient continues with dressing changes at home with silver gel [place]. No interim complaints. Chief Complaint: Left foot necrotizing fasciitis Review of Systems Constitutional: Constitutional: Reports as per HPI, Denies chills, Denies fatigue and Denies weakness ENT: Reports Normal hearing present and Denies nasal discharge Cardiovascular: Cardiovascular: Denies chest pain, Reports pedal edema ( Left lower extremity) and Denies lightheadedness Respiratory: Respiratory: Denies cough, Denies dyspnea and Denies wheezing Gastrointestinal: Gastrointestinal: Denies abdominal pain, Denies diarrhea, Reports nausea and Reports vomiting Genitourinary: Genitourinary: Denies dysuria and Denies urinary frequency Musculoskeletal: Musculoskeletal: Reports as per HPI Integumentary/Breasts: Skin/Breast: Reports as per HPI, Reports erythema and Reports unusual bruising ( dorsal foot) Neurologic: Reports abnormal gait ( antalgic left lower extremity) and Reports numbness ( numbness left foot) Psychiatric: Psychiatric: Reports as per HPI Endocrine: Endocrine: Reports cold intolerance Hematologic/Lymphatic: Hematologic/Lymphatic: Denies easy bleeding Allergic/Immunologic: Allergic/Immunologic: Reports no additional allergic/immunologic complaints [facility] Past Medical History Medical History Cellulitis of left foot Chronic constipation Diabetes mellitus Diabetic foot ulcer associated with diabetes mellitus due to underlying condition Diabetic peripheral neuropathy Encounter for postoperative care Group beta Strep positive Hypertension Impotence Necrotizing fasciitis of ankle and foot Noncompliance with medication regimen Overweight (BMI 25.0-29.9) Peripheral artery disease Uncontrolled diabetes mellitus Surgical History Surgical History H/O arthroscopy of right knee Family History Family History Father , age 62 Myocardial infarct Lung disease Mother , age 73 Lung disease Sibling , age 67 Lung disease Social History Social History Social History: The patient currently lives at home with his significant other. 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 He has since not been working. Smoking status: Never smoker Second hand tobacco smoke exposure: Yes Alcohol intake: current Drinks per week: 3 Substance use: current Substance use type: marijuana Last use: ONCE A MONTH Additional living arrangements comments: He currently lives with his significant other in [place], [place]. he is not Additional occupation/education comments: see above Gender identity (if verbalized by the patient): Male Spiritual care concerns: No Agree to blood products: Yes Meds Home Medications and Allergies Home Medications Medication Instructions Recorded Confirmed Type OneTouch Verio test strips #30 each NS 05/19/20 11/21/20 Rx blood-glucose meter [OneTouch #1 each NS 05/19/20 11/21/20 Rx Verio Flex meter] insulin syringe,safetyneedle #30 each NS 05/19/20 11/21/20 Rx lancets [OneTouch Delica Plus #30 each NS 05/19/20 11/21/20 Rx Lancet] gabapentin [Neurontin] 300 mg PO TID 06/10/20 11/21/20 History oxycodone-acetaminophen [Percocet] 1 tablet PO Q4H PRN #30 tablet 06/16/20 11/21/20 Rx escitalopram oxalate 10 mg PO QAM 08/01/20 11/21/20 History glimepiride 1 mg PO QAM 08/01/20 11/21/20 History metformin [Glucophage] 1,000 mg PO BID 08/01/20 11/21/20 History Allergies Allergy/AdvReac Type Severity Reaction Status
--- NOTE | 2020-12-19 08:39 | PM.IMHP ---
H&P: HPI History of Present Illness Date/Time: 12/19/20 08:39 Chief Complaint: left foot necrotizing fasciitis Narrative: Patient returns for re-evaluation [facility] outpatient wound clinic for left foot necrotizing fasciitis. Patient states 1 episode in the interim where he injured the and of the 2nd and 3rd toe. Noted some bruising which is now resolved but still has some swelling. Otherwise no new complaints. Review of Systems Constitutional: Constitutional: Reports as per HPI, Denies chills, Denies fatigue and Denies weakness ENT: Reports Normal hearing present and Denies nasal discharge Cardiovascular: Cardiovascular: Denies chest pain, Reports pedal edema ( Left lower extremity) and Denies lightheadedness Respiratory: Respiratory: Denies cough, Denies dyspnea and Denies wheezing Gastrointestinal: Gastrointestinal: Denies abdominal pain, Denies diarrhea, Reports nausea and Reports vomiting Genitourinary: Genitourinary: Denies dysuria and Denies urinary frequency Musculoskeletal: Musculoskeletal: Reports as per HPI Integumentary/Breasts: Skin/Breast: Reports as per HPI, Reports erythema and Reports unusual bruising ( dorsal foot) Neurologic: Reports abnormal gait ( antalgic left lower extremity) and Reports numbness ( numbness left foot) Psychiatric: Psychiatric: Reports as per HPI Endocrine: Endocrine: Reports cold intolerance Hematologic/Lymphatic: Hematologic/Lymphatic: Denies easy bleeding Allergic/Immunologic: Allergic/Immunologic: Reports no additional allergic/immunologic complaints PMFSH Past Medical History Medical History Cellulitis of left foot Chronic constipation Diabetes mellitus Diabetic foot ulcer associated with diabetes mellitus due to underlying condition Diabetic peripheral neuropathy Encounter for postoperative care Group beta Strep positive Hypertension Impotence Necrotizing fasciitis of ankle and foot Noncompliance with medication regimen Overweight (BMI 25.0-29.9) Peripheral artery disease Uncontrolled diabetes mellitus Surgical History Surgical History H/O arthroscopy of right knee Family History Family History Father , age 62 Myocardial infarct Lung disease Mother , age 73 Lung disease Sibling , age 67 Lung disease Social History Social History Social History: The patient currently lives at home with his significant other. 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 He has since not been working. Smoking status: Never smoker Second hand tobacco smoke exposure: Yes Alcohol intake: current Drinks per week: 3 Substance use: current Substance use type: marijuana Last use: ONCE A MONTH Additional living arrangements comments: He currently lives with his significant other in [place], [place]. he is not Additional occupation/education comments: see above Gender identity (if verbalized by the patient): Male Spiritual care concerns: No Agree to blood products: Yes Meds Home Medications and Allergies Home Medications Medication Instructions Recorded Confirmed Type OneTouch Verio test strips #30 each NS 05/19/20 11/21/20 Rx blood-glucose meter [OneTouch #1 each NS 05/19/20 11/21/20 Rx Verio Flex meter] insulin syringe,safetyneedle #30 each NS 05/19/20 11/21/20 Rx lancets [OneTouch Delica Plus #30 each NS 05/19/20 11/21/20 Rx Lancet] gabapentin [Neurontin] 300 mg PO TID 06/10/20 11/21/20 History oxycodone-acetaminophen [Percocet] 1 tablet PO Q4H PRN #30 tablet 06/16/20 11/21/20 Rx escitalopram oxalate 10 mg PO QAM 08/01/20 11/21/20 History glimepiride 1 mg PO QAM 08/01/20 11/21/20 History m
--- NOTE | 2021-01-02 09:00 | PM.IMHP ---
H&P: HPI History of Present Illness Date/Time: 01/02/21 09:00 Chief Complaint: Left Dorsal Foot Wound Narrative: Patient returns to [facility] outpatient wound clinic for reevaluation of left foot necrotizing fasciitis. No new complaints. Denies fever, chills, night sweats, nausea, vomiting or diarrhea. No signs of infection. Tolerating dressing changes well. Review of Systems Constitutional: Constitutional: Reports as per HPI, Denies chills, Denies fatigue and Denies weakness ENT: Reports Normal hearing present and Denies nasal discharge Cardiovascular: Cardiovascular: Denies chest pain, Reports pedal edema ( Left lower extremity) and Denies lightheadedness Respiratory: Respiratory: Denies cough, Denies dyspnea and Denies wheezing Gastrointestinal: Gastrointestinal: Denies abdominal pain, Denies diarrhea, Reports nausea and Reports vomiting Genitourinary: Genitourinary: Denies dysuria and Denies urinary frequency Musculoskeletal: Musculoskeletal: Reports as per HPI Integumentary/Breasts: Skin/Breast: Reports as per HPI, Reports erythema and Reports unusual bruising ( dorsal foot) Neurologic: Reports abnormal gait ( antalgic left lower extremity) and Reports numbness ( numbness left foot) Psychiatric: Psychiatric: Reports as per HPI Endocrine: Endocrine: Reports cold intolerance Hematologic/Lymphatic: Hematologic/Lymphatic: Denies easy bleeding Allergic/Immunologic: Allergic/Immunologic: Reports no additional allergic/immunologic complaints [facility] Past Medical History Medical History Cellulitis of left foot Chronic constipation Diabetes mellitus Diabetic foot ulcer associated with diabetes mellitus due to underlying condition Diabetic peripheral neuropathy Encounter for postoperative care Group beta Strep positive Hypertension Impotence Necrotizing fasciitis of ankle and foot Noncompliance with medication regimen Overweight (BMI 25.0-29.9) Peripheral artery disease Uncontrolled diabetes mellitus Surgical History Surgical History H/O arthroscopy of right knee Family History Family History Father , age 62 Myocardial infarct Lung disease Mother , age 73 Lung disease Sibling , age 67 Lung disease Social History Social History Social History: The patient currently lives at home with his significant other. 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 He has since not been working. Smoking status: Never smoker Second hand tobacco smoke exposure: Yes Alcohol intake: current Drinks per week: 3 Substance use: current Substance use type: marijuana Last use: ONCE A MONTH Additional living arrangements comments: He currently lives with his significant other in [place], [place]. he is not Additional occupation/education comments: see above Gender identity (if verbalized by the patient): Male Spiritual care concerns: No Agree to blood products: Yes Meds Home Medications and Allergies Home Medications Medication Instructions Recorded Confirmed Type OneTouch Verio test strips #30 each NS 05/19/20 11/21/20 Rx blood-glucose meter [OneTouch #1 each NS 05/19/20 11/21/20 Rx Verio Flex meter] insulin syringe,safetyneedle #30 each NS 05/19/20 11/21/20 Rx lancets [OneTouch Delica Plus #30 each NS 05/19/20 11/21/20 Rx Lancet] gabapentin [Neurontin] 300 mg PO TID 06/10/20 11/21/20 History oxycodone-acetaminophen [Percocet] 1 tablet PO Q4H PRN #30 tablet 06/16/20 11/21/20 Rx escitalopram oxalate 10 mg PO QAM 08/01/20 11/21/20 History glimepiride 1 mg PO QAM 08/01/20 11/21/20 History metformin [Glucophage] 1,000 mg PO BID 08/01/20 11/21/20 Histor
--- NOTE | 2021-01-16 13:06 | PM.IMHP ---
H&P: HPI History of Present Illness Date/Time: 01/16/21 13:06 Chief Complaint: Left Dorsal Foot Wound Narrative: Patient returns to [facility] outpatient wound clinic for reevaluation of left foot necrotizing fasciitis. No new complaints. Denies fever, chills, night sweats, nausea, vomiting or diarrhea. No signs of infection. Tolerating dressing changes well. Had difficulty with initiation of Medi-Honey. He reports worsening of wound bed dimensions with Medi-honey and switched himself back to silver gel/transfer and covering dry. Review of Systems Constitutional: Constitutional: Reports as per HPI, Denies chills, Denies fatigue and Denies weakness ENT: Reports Normal hearing present and Denies nasal discharge Cardiovascular: Cardiovascular: Denies chest pain, Reports pedal edema ( Left lower extremity) and Denies lightheadedness Respiratory: Respiratory: Denies cough, Denies dyspnea and Denies wheezing Gastrointestinal: Gastrointestinal: Denies abdominal pain, Denies diarrhea, Reports nausea and Reports vomiting Genitourinary: Genitourinary: Denies dysuria and Denies urinary frequency Musculoskeletal: Musculoskeletal: Reports as per HPI Integumentary/Breasts: Skin/Breast: Reports as per HPI, Reports erythema and Reports unusual bruising ( dorsal foot) Neurologic: Reports abnormal gait ( antalgic left lower extremity) and Reports numbness ( numbness left foot) Psychiatric: Psychiatric: Reports as per HPI Endocrine: Endocrine: Reports cold intolerance Hematologic/Lymphatic: Hematologic/Lymphatic: Denies easy bleeding Allergic/Immunologic: Allergic/Immunologic: Reports no additional allergic/immunologic complaints [facility] Past Medical History Medical History Cellulitis of left foot Chronic constipation Diabetes mellitus Diabetic foot ulcer associated with diabetes mellitus due to underlying condition Diabetic peripheral neuropathy Encounter for postoperative care Group beta Strep positive Hypertension Impotence Necrotizing fasciitis of ankle and foot Noncompliance with medication regimen Overweight (BMI 25.0-29.9) Peripheral artery disease Uncontrolled diabetes mellitus Surgical History Surgical History H/O arthroscopy of right knee Family History Family History Father , age 62 Myocardial infarct Lung disease Mother , age 73 Lung disease Sibling , age 67 Lung disease Social History Social History Social History: The patient currently lives at home with his significant other. 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 He has since not been working. Smoking status: Never smoker Second hand tobacco smoke exposure: Yes Alcohol intake: current Drinks per week: 3 Substance use: current Substance use type: marijuana Last use: ONCE A MONTH Additional living arrangements comments: He currently lives with his significant other in [place], [place]. he is not Additional occupation/education comments: see above Gender identity (if verbalized by the patient): Male Spiritual care concerns: No Agree to blood products: Yes Meds Home Medications and Allergies Home Medications Medication Instructions Recorded Confirmed Type OneTouch Verio test strips #30 each NS 05/19/20 11/21/20 Rx blood-glucose meter [OneTouch #1 each NS 05/19/20 11/21/20 Rx Verio Flex meter] insulin syringe,safetyneedle #30 each NS 05/19/20 11/21/20 Rx lancets [OneTouch Delica Plus #30 each NS 05/19/20 11/21/20 Rx Lancet] gabapentin [Neurontin] 300 mg PO TID 06/10/20 11/21/20 History oxycodone-acetaminophen [Percocet] 1 tablet PO Q4H PRN #30 tablet 06/16/20 11/21/20 Rx
--- NOTE | 2021-01-30 08:53 | PM.IMHP ---
H&P: HPI History of Present Illness Date/Time: 01/30/21 08:53 Chief Complaint: Left foot necrotizing fasciitis. Narrative: Patient returns to [facility] outpatient wound clinic for reevaluation of left foot necrotizing fasciitis. No new complaints. Denies fever, chills, night sweats, nausea, vomiting or diarrhea. No signs of infection. Tolerating dressing changes well. Review of Systems Constitutional: Constitutional: Reports as per HPI, Denies chills, Denies fatigue and Denies weakness ENT: Reports Normal hearing present and Denies nasal discharge Cardiovascular: Cardiovascular: Denies chest pain, Reports pedal edema ( Left lower extremity) and Denies lightheadedness Respiratory: Respiratory: Denies cough, Denies dyspnea and Denies wheezing Gastrointestinal: Gastrointestinal: Denies abdominal pain, Denies diarrhea, Reports nausea and Reports vomiting Genitourinary: Genitourinary: Denies dysuria and Denies urinary frequency Musculoskeletal: Musculoskeletal: Reports as per HPI Integumentary/Breasts: Skin/Breast: Reports as per HPI, Reports erythema and Reports unusual bruising ( dorsal foot) Neurologic: Reports abnormal gait ( antalgic left lower extremity) and Reports numbness ( numbness left foot) Psychiatric: Psychiatric: Reports as per HPI Endocrine: Endocrine: Reports cold intolerance Hematologic/Lymphatic: Hematologic/Lymphatic: Denies easy bleeding Allergic/Immunologic: Allergic/Immunologic: Reports no additional allergic/immunologic complaints [facility] Past Medical History Medical History Cellulitis of left foot Chronic constipation Diabetes mellitus Diabetic foot ulcer associated with diabetes mellitus due to underlying condition Diabetic peripheral neuropathy Encounter for postoperative care Group beta Strep positive Hypertension Impotence Necrotizing fasciitis of ankle and foot Noncompliance with medication regimen Overweight (BMI 25.0-29.9) Peripheral artery disease Uncontrolled diabetes mellitus Surgical History Surgical History H/O arthroscopy of right knee Family History Family History Father , age 62 Myocardial infarct Lung disease Mother , age 73 Lung disease Sibling , age 67 Lung disease Social History Social History Social History: The patient currently lives at home with his significant other. 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 He has since not been working. Smoking status: Never smoker Second hand tobacco smoke exposure: Yes Alcohol intake: current Drinks per week: 3 Substance use: current Substance use type: marijuana Last use: ONCE A MONTH Additional living arrangements comments: He currently lives with his significant other in [place], [place]. he is not Additional occupation/education comments: see above Gender identity (if verbalized by the patient): Male Spiritual care concerns: No Agree to blood products: Yes Meds Home Medications and Allergies Home Medications Medication Instructions Recorded Confirmed Type OneTouch Verio test strips #30 each NS 05/19/20 11/21/20 Rx blood-glucose meter [OneTouch #1 each NS 05/19/20 11/21/20 Rx Verio Flex meter] insulin syringe,safetyneedle #30 each NS 05/19/20 11/21/20 Rx lancets [OneTouch Delica Plus #30 each NS 05/19/20 11/21/20 Rx Lancet] gabapentin [Neurontin] 300 mg PO TID 06/10/20 11/21/20 History oxycodone-acetaminophen [Percocet] 1 tablet PO Q4H PRN #30 tablet 06/16/20 11/21/20 Rx escitalopram oxalate 10 mg PO QAM 08/01/20 11/21/20 History glimepiride 1 mg PO QAM 08/01/20 11/21/20 History metformin [Glucophage] 1,000 mg PO BID 08/01/2011/21
== END 2021-02-19 23:59 | disposition home or self-care (01) ==
LOC: ANHWOC 07:41
PROVIDERS: PCP Family Medicine Adolescent Medicine; Visit Provider Nurse Practitioner Family
DX: E11.621 Type 2 diabetes mellitus with foot ulcer (principal); L97.523 Non-pressure chronic ulcer of other part of left foot with necrosis of muscle; M72.6 Necrotizing fasciitis
CPT/HCPCS: 99212; G0463

== ENCOUNTER 2021-02-27 07:47 | Outpatient (RCR) | payer MEDICARE, SELFPAY ==
[2021-02-20 00:03] VITALS: BMI 29.2
--- NOTE | 2021-02-27 09:22 | PM.IMHP ---
H&P: HPI History of Present Illness Date/Time: 02/27/21 09:22 Chief Complaint: Left foot necrotizing fasciitis Narrative: follow-up evaluation [facility] outpatient wound clinic for left foot ulceration with necrotizing fasciitis and osteomyelitis of the 4th toe. Patient states he noted complete healing of the ulcer in the interim. He has not had any drainage or signs of infection. He has not gotten his inserts yet. He is using an [id number] cushion insert. Minimal complaints of pain. Review of Systems Constitutional: Constitutional: Reports as per HPI, Denies chills, Denies fatigue and Denies weakness ENT: Reports Normal hearing present and Denies nasal discharge Cardiovascular: Cardiovascular: Denies chest pain, Reports pedal edema ( Left lower extremity) and Denies lightheadedness Respiratory: Respiratory: Denies cough, Denies dyspnea and Denies wheezing Gastrointestinal: Gastrointestinal: Denies abdominal pain, Denies diarrhea, Reports nausea and Reports vomiting Genitourinary: Genitourinary: Denies dysuria and Denies urinary frequency Musculoskeletal: Musculoskeletal: Reports as per HPI Integumentary/Breasts: Skin/Breast: Reports as per HPI, Reports erythema and Reports unusual bruising ( dorsal foot) Neurologic: Reports abnormal gait ( antalgic left lower extremity) and Reports numbness ( numbness left foot) Psychiatric: Psychiatric: Reports as per HPI Endocrine: Endocrine: Reports cold intolerance Hematologic/Lymphatic: Hematologic/Lymphatic: Denies easy bleeding Allergic/Immunologic: Allergic/Immunologic: Reports no additional allergic/immunologic complaints PMFSH Past Medical History Medical History Cellulitis of left foot Chronic constipation Diabetes mellitus Diabetic foot ulcer associated with diabetes mellitus due to underlying condition Diabetic peripheral neuropathy Encounter for postoperative care Group beta Strep positive Hypertension Impotence Necrotizing fasciitis of ankle and foot Noncompliance with medication regimen Overweight (BMI 25.0-29.9) Peripheral artery disease Uncontrolled diabetes mellitus Surgical History Surgical History H/O arthroscopy of right knee Family History Family History Father , age 62 Myocardial infarct Lung disease Mother , age 73 Lung disease Sibling , age 67 Lung disease Social History Social History Social History: The patient currently lives at home with his significant other. 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 He has since not been working. Smoking status: Never smoker Second hand tobacco smoke exposure: Yes Alcohol intake: current Drinks per week: 3 Alcohol use details: The patient reports that he used to be a very heavy drinker drinking approximately 10 beers and 10 shots in 1 day. He has since became a social drinker. Specifically since the beginning of COVID- he occasionally has 1-3 beers while out with his significant other. Substance use: current Substance use type: marijuana Last use: ONCE A MONTH Additional living arrangements comments: He currently lives with his significant other in [place], [place]. he is not Additional occupation/education comments: see above Gender identity (if verbalized by the patient): Male Spiritual care concerns: No Agree to blood products: Yes Meds Home Medications and Allergies Home Medications Medication Instructions Recorded Confirmed Type OneTouch Verio test strips #30 each NS 05/19/20 11/21/20 Rx blood-glucose meter [OneTouch #1 each NS 05/19/20 11/21/20 Rx Verio Flex meter] insulin syringe,safetyneedl
== END 2021-04-07 12:08 | disposition home or self-care (01) ==
LOC: ANHWOC 07:47
PROVIDERS: PCP Family Medicine Adolescent Medicine; Visit Provider Nurse Practitioner Family
DX: E11.621 Type 2 diabetes mellitus with foot ulcer (principal); L97.523 Non-pressure chronic ulcer of other part of left foot with necrosis of muscle; M72.6 Necrotizing fasciitis
CPT/HCPCS: 99212; G0463

== ENCOUNTER 2021-09-10 13:05 | Inpatient (IN) | payer MEDICARE, SELFPAY ==
--- NOTE | ~2021-09-10 | XR_ITS ---
EXAMINATION: XR chest 2V DATE: 09/10/2021 13:47 INDICATION: Chest pain and cough. TECHNIQUE: Frontal and lateral views of the chest were obtained. COMPARISON: Chest single view 05/07/2020, CT abdomen and pelvis 10/31/2017 FINDINGS: A calcified right lung nodule and calcified right hilar lymph nodes are consistent with old granulomatous disease. There are mild airspace opacities in the perihilar regions and lower lung zon es. No pleural effusion or pneumothorax. The heart size is normal. IMPRESSION: 1. Mild airspace opacities in the perihilar regions and lower lung zones, consistent with atelectasis versus pneumonia. Reviewed, dictated and finalized at location A. WELDER IMPRESSION: 1. Mild airspace opacities in the perihilar regions and lower lung zones, consi stent with atelectasis versus pneumonia.
--- NOTE | 2021-09-10 13:07 | ECG_ITS ---
Measurements Intervals [place] Rate: 94 P: 41 SC: 153 QRS: 28 QRSD: 102 T: 85 QT: 331 QTc: 416 Interpretive Statements SINUS RHYTHM BORDERLINE ST-T WAVE ABNORMALITY- HIGH LATERAL LEADS BASELINE ARTIFACT- II, III, V2 BORDERLINE ECG Electronically Signed On 09-10-2021 13:38:25 [employer] by Jesús Gomez D.O.
[2021-09-10 13:33] VITALS: BP 154/82; PULSE 97; RESP 18; TEMP 37.2; O2SAT 98
[2021-09-10 13:46] LABS: Basophils Percent Auto 0.3 % (0.2-1.2); Hematocrit 47.1 % (42.0-52.0); Hemoglobin 16.4 g/dL (14.0-18.0); Immature Granulocyte Absolute 0.01 K/mm3 (0.00-0.031); Immature Granulocyte Percent A 0.3 % (0-0.5); Lymphocytes Absolute Auto 0.74 K/mm3 (0.9-3.2); Lymphocytes Percent Auto 22.6 % (18.3-44.2); Mean Corpuscular HGB Conc 34.8 g/dl (32-36); Mean Corpuscular Hemoglobin 30.6 pg (26-34); Mean Corpuscular Volume 87.9 fl (80-100); Mean Platelet Volume 11.4 fl (7.4-10.4); Monocytes Absolute Auto 0.3 K/mm3 (0.1-0.6); Monocytes Percent Auto 8.5 % (2.6-8.5); Neutrophils Absolute Auto 2.2 K/mm3 (1.3-6.7); Neutrophils Percent Auto 68.3 % (45.5-73.1); Platelet Count Result 86 k/mm3 (150-375); Red Blood Count 5.36 M/mm3 (4.6-6.20); Red Cell Distribution Width 12.3 % (11.5-14.5); White Blood Count 3.3 K/mm3 (4.5-10.0)
[2021-09-10 14:02] LABS: Alanine Aminotransferase 24 U/L (4-50); Albumin Level 4.5 g/dL (3.5-5.1); Alkaline Phosphatase 63 U/L (38-126); Anion Gap 15 mmol/L (8-16); Aspartate Amino Transferase 39 U/L (17-59); Bilirubin,Total 0.7 mg/dL (0.2-1.3); Blood Urea Nitrogen 22 mg/dL (9-20); Calcium 8.9 mg/dL (8.4-10.2); Carbon Dioxide 23 mmol/L (22-30); Chloride 95 mmol/L (98-107); Estimated CRCL calculation 57 ml/min; Estimated Glomerular Filt Rate 51; Glucose 202 mg/dL (65-110); Lipase 214 U/L (23-300); Potassium 4.3 mmol/L (3.4-5.0); Sodium 133 mmol/L (137-145)
[2021-09-10 14:13] LABS: Partial Thromboplastin Time 32.6 SECONDS (22.3-36.8)
[2021-09-10 14:14] LABS: Troponin I < 0.012 ng/mL (0.000-0.034)
[2021-09-10 16:01] VITALS: BP 136/78; PULSE 86; RESP 25; O2SAT 97
[2021-09-10 17:03] LABS: Troponin I < 0.012 ng/mL (0.000-0.034)
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
[2021-09-10 18:14] LABS: Lactic Acid Reflex 1.7 mmol/L (0.7-2.1)
[2021-09-10 18:22] VITALS: BP 125/82; PULSE 90; RESP 13; O2SAT 97
[2021-09-10] MEDS: DOXYCYCLINE IV 100 MG in SODIUM CHLORIDE 0.9% IV 100 ML IVPB (18:24)
[2021-09-10 18:33] LABS: SARS-CoV-2 RNA PCR Positive
[2021-09-10 19:15] VITALS: BP 119/93; PULSE 85; RESP 23; O2SAT 94
[2021-09-10 19:35] LABS: Troponin I < 0.012 ng/mL (0.000-0.034)
[2021-09-10 21:51] VITALS: BP 135/75; PULSE 84; RESP 26; O2SAT 93
[2021-09-10] MEDS: PANTOPRAZOLE SODIUM IV 40 MG VIAL IV PUSH (22:04)
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
[2021-09-11] VITALS (11 sets, daily range): BP systolic 118–148; BP diastolic 71–95; PULSE 70–87; RESP 17–23; O2SAT 93–100
[2021-09-11] MEDS: GABAPENTIN 300 MG CAPSULE PO ×3 (00:58→13:58)
[2021-09-11 01:03] LABS: Glucose Point of Care 259 mg/dl (65-105)
--- NOTE | 2021-09-11 07:21 | PC.NURSE ---
This nurse ordered a breakfast tray for the pt. Food tray will arrive at approx 0800.
[2021-09-11 07:45] LABS: Glucose Point of Care 229 mg/dl (65-105)
[2021-09-11] MEDS: INSULIN ASPART (*BKC) 100 UNITS/ML SUB-Q ×2 (07:53→11:35)
[2021-09-11] MEDS: guaiFENesin 12 HR 600 MG TABCR 1200 MG PO (08:36)
[2021-09-11] MEDS: PANTOPRAZOLE SODIUM IV 40 MG VIAL IV PUSH (08:36)
--- NOTE | 2021-09-11 08:47 | PC.NURSE ---
Pt ate 80% of his breakfast tray.
[2021-09-11 09:22] LABS: Basophils Percent Auto 0.3 % (0.2-1.2); Hematocrit 45.1 % (42.0-52.0); Hemoglobin 15.4 g/dL (14.0-18.0); Immature Granulocyte Absolute 0.02 K/mm3 (0.00-0.031); Immature Granulocyte Percent A 0.7 % (0-0.5); Immature Platelet Fraction Pct 10.5 % (0.9-11.2); Lymphocytes Absolute Auto 0.93 K/mm3 (0.9-3.2); Mean Corpuscular HGB Conc 34.1 g/dl (32-36); Mean Corpuscular Volume 87.7 fl (80-100); Monocytes Absolute Auto 0.2 K/mm3 (0.1-0.6); Monocytes Percent Auto 7.7 % (2.6-8.5); Neutrophils Absolute Auto 1.8 K/mm3 (1.3-6.7); Neutrophils Percent Auto 60.3 % (45.5-73.1); Platelet Count Result 94 k/mm3 (150-375); Red Blood Count 5.14 M/mm3 (4.6-6.20); Red Cell Distribution Width 12.1 % (11.5-14.5)
[2021-09-11 09:32] LABS: Lactic Acid Reflex 1.6 mmol/L (0.7-2.1)
[2021-09-11 09:50] LABS: Alanine Aminotransferase 23 U/L (4-50); Albumin Level 4.3 g/dL (3.5-5.1); Alkaline Phosphatase 57 U/L (38-126); Anion Gap 11 mmol/L (8-16); Aspartate Amino Transferase 35 U/L (17-59); Bilirubin,Total 0.6 mg/dL (0.2-1.3); Blood Urea Nitrogen 25 mg/dL (9-20); Calcium 8.8 mg/dL (8.4-10.2); Carbon Dioxide 25 mmol/L (22-30); Chloride 98 mmol/L (98-107); Estimated CRCL calculation 66 ml/min; Estimated Glomerular Filt Rate > 60; Glucose 252 mg/dL (65-110); Lactate Dehydrogenase 630 U/L (313-618); Lipase 226 U/L (23-300); Magnesium 1.9 mg/dL (1.6-2.3); Potassium 4.4 mmol/L (3.4-5.0); Sodium 134 mmol/L (137-145)
[2021-09-11 10:09] LABS: Hemoglobin A1C 10.9 % (<5.7)
[2021-09-11 10:29] LABS: Thyroid Stimulating Hormone Reflex 0.633 uIU/mL (0.465-4.68)
--- NOTE | 2021-09-11 10:44 | PC.NURSE ---
This nurse ordered pt lunch tray for 1200.
[2021-09-11 11:20] LABS: Glucose Point of Care 292 mg/dl (65-105)
--- NOTE | 2021-09-11 13:00 | PC.NURSE ---
Pt noted to have eaten 50% of lunch.
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
== END 2021-09-11 16:00 | disposition home or self-care (01) | DRG 177 ==
LOC: ANHED 18:35 → ANH3MEDSUR 20:52
PROVIDERS: Nurse Practitioner; Admitting Provider Internal Medicine; Emergency Provider Emergency Medicine; PCP Family Medicine Adolescent Medicine; Visit Provider Family Medicine
DX: U07.1 COVID-19 (principal); J12.82 Pneumonia due to coronavirus disease 2019; N17.9 Acute kidney failure, unspecified; D69.6 Thrombocytopenia, unspecified; E11.65 Type 2 diabetes mellitus with hyperglycemia; E11.621 Type 2 diabetes mellitus with foot ulcer; L97.523 Non-pressure chronic ulcer of other part of left foot with necrosis of muscle; E11.51 Type 2 diabetes mellitus with diabetic peripheral angiopathy without gangrene; E11.42 Type 2 diabetes mellitus with diabetic polyneuropathy; R13.10 Dysphagia, unspecified; R07.89 Other chest pain; Z28.21 Immunization not carried out because of patient refusal; Z79.4 Long term (current) use of insulin; Z79.84 Long term (current) use of oral hypoglycemic drugs; Z79.899 Other long term (current) drug therapy
CPT/HCPCS: 36415; 71046; 80053; 82728; 82948; 83036; 83605; 83615; 83690; 83735; 84443; 84484; 85025; 85055; 85610; 85730; 87040; 93005; 96365; 96367; 96375; 96376; 99285; A9270; C9113; C9803; G0378; J0696; J1100; J1815; U0003; U0005

== ENCOUNTER 2021-09-19 14:21 | Inpatient (IN) | payer MEDICARE, SELFPAY ==
[2021-09-19] VITALS (31 sets, daily range): BP systolic 111–164; BP diastolic 74–99; PULSE 80–98; RESP 16–38; TEMP 36.4–36.8; O2SAT 85–99; BMI 29.1
--- NOTE | ~2021-09-19 | XR_ITS ---
EXAMINATION: XR chest 1V portable EXAM DATE: 09/19/2021 14:34 INDICATION: hypoxia, COVID + TECHNIQUE: Portable AP frontal chest x-ray was obtained. Comparison is made to prior examination from 09/10/2021. FINDINGS: Significant interval progression in previously seen airspace disease, now diffuse involveme nt. Probably COVID pneumonia given history provided. No pneumothorax or pleural effusion. Cardiomedia stinal silhouette is normal. There are bony degenerative changes. There is moderate right glenohumera l joint primary osteoarthritis. IMPRESSION: Progression of now diffuse pneumonia. Reviewed, dictated and finalized at location G. EL OPENER
--- NOTE | ~2021-09-19 | XR_ITS ---
EXAMINATION: XR chest 1V portable DATE: 09/23/2021 07:56 INDICATION: COVID. Increasing oxygen requirement. TECHNIQUE: frontal view of the chest was obtained. COMPARISON: Chest radiograph dated 09/21/2021 FINDINGS: With no significant change in patchy airspace opacities throughout both lungs. No pleural effusion or pneumothorax. The cardiomediastinal silhouette is normal. IMPRESSION: 1. Unchanged diffuse patchy bilateral airspace opacities consistent with COVID pneumonia. Reviewed, dictated and finalized at location A. ER STRUCTURAL MILL
--- NOTE | ~2021-09-19 | XR_ITS ---
EXAMINATION: XR chest 1V portable DATE: 09/25/2021 06:39 INDICATION: COVID. Increased oxygen requirement. TECHNIQUE: frontal view of the chest was obtained. COMPARISON: Chest radiograph dated 09/23/2021 FINDINGS: No significant change in diffuse patchy airspace opacities throughout both lungs. Large calcified nod ules in the right midlung zone and calcified right hilar and mediastinal lymph nodes consistent with old granulomatous disease. No pleural effusion or pneumothorax. The cardiomediastinal silhouette is w ithin normal limits for AP technique. Severe right glenohumeral osteoarthritis. IMPRESSION: 1. Unchanged diffuse bilateral lung disease consistent with COVID pneumonia. Reviewed, dictated and finalized at location A. ICAL FIRST ASSISTANT
--- NOTE | ~2021-09-19 | XR_ITS ---
EXAMINATION: XR chest 1V portable DATE: 09/21/2021 06:29 INDICATION: COVID TECHNIQUE: frontal view of the chest was obtained. COMPARISON: Chest radiograph dated 09/19/2021 FINDINGS: Small lung volumes particularly greater on the right with elevation of the right hemidiaphragm. Patch y airspace opacities throughout both lungs consistent with COVID pneumonia. No pleural effusion or pn eumothorax. Calcified calcified nodule in the right lung along with calcified right hilar and mediast inal lymph nodes consistent with old granulomatous disease. Severe right glenohumeral osteoarthritis. IMPRESSION: 1. No significant change in diffuse patchy bilateral lung disease consistent with COVID pneumonia. Reviewed, dictated and finalized at location A. LY RESOURCE SPECIALIST IMPRESSION: 1. No significant change in diffuse patchy bilateral lung disease consistent wi th COVID pneumonia.
--- NOTE | ~2021-09-19 | CT_ITS ---
EXAMINATION: CTA chest PE protocol EXAM DATE: 09/19/2021 15:42 INDICATION: Hypoxia COIVD + TECHNIQUE: Spiral CTA of the chest (pulmonary arteries) was performed with 100 cc Omnipaque 350 intr avenous contrast injection. Images were acquired during the pulmonary arterial phase. Coronal maxi mum intensity projection 3D-reconstructions were created by the technologist on dedicated workstation . Axial, coronal and sagittal reformatted images were reviewed. The dose-length product (DLP) for t his examination was 818.21 mGy-cm. The exposure was tailored according to patient size (auto mA exp osure control), and iterative reconstruction (ASIR) was used as additional dose reduction technique. There is no prior study for comparison. FINDINGS: There are no pulmonary emboli in the 1st through 3rd order (central and interlobar) pulmon elias arteries. Some loss of attenuation in the basilar segmental pulmonary from respiratory motion, t hese regions not confidently evaluated. No Intraluminal filling defects identified. No thoracic aor tic dissection. Diffuse bilateral scattered subsolid opacities, appearance is consistent with COVID p neumonia. Right upper lobe calcified granuloma. There are no pleural or pericardial effusions. Trac heobronchial tree is patent. There is no mediastinal, hilar or axillary lymphadenopathy. There is no pneumothorax. Heart normal in size. There is mild to moderate coronary arterial calcification , arterial sclerosis. Upper abdomen is unremarkable. There is thoracic spondylosis without osteobl astic or osteolytic lesions identified. IMPRESSION: 1. Limited segmental evaluation, but no pulmonary emboli are suspected. 2. Diffuse COVID pneumonia. Reviewed, dictated and finalized at location G. AL CHEMIST
--- NOTE | ~2021-09-19 | XR_ITS ---
EXAMINATION: XR chest 1V portable DATE: 09/27/2021 05:29 INDICATION: COVID-19 pneumonia. TECHNIQUE: A single frontal view of the chest was obtained. COMPARISON: Chest single view 09/25/2021 FINDINGS: There are airspace and interstitial opacities throughout the lungs bilaterally. Lung volume s are small. No pleural effusion or pneumothorax. The heart size is normal. IMPRESSION: 1. Stable diffuse lung disease, consistent with COVID-19 pneumonia. Reviewed, dictated and finalized at location A. TRICAL LOGGING OPERATOR
--- NOTE | 2021-09-19 14:24 | ECG_ITS ---
Measurements Intervals H[place]man Rate: 94 P: 39 DE: 143 QRS: 15 QRSD: 104 T: 35 QT: 344 QTc: 432 Interpretive Statements SINUS RHYTHM BASELINE ARTIFACT- I, II, III, AVR, AVL, AVF NORMAL ECG Electronically Signed On 09-19-2021 18:12:58 DEVOPS DEVELOPER by Jesús Gomez D.O.
[2021-09-19 14:58] LABS: Basophils Percent Auto 0.1 % (0.2-1.2); Eosinophils Absolute Auto 0.1 K/mm3 (0-0.3); Eosinophils Percent Auto 1.4 % (0-4.4); Hematocrit 48.8 % (42.0-52.0); Hemoglobin 16.6 g/dL (14.0-18.0); Immature Granulocyte Absolute 0.06 K/mm3 (0.00-0.031); Immature Granulocyte Percent A 0.8 % (0-0.5); Lymphocytes Absolute Auto 0.51 K/mm3 (0.9-3.2); Mean Corpuscular Hemoglobin 30.4 pg (26-34); Mean Corpuscular Volume 89.4 fl (80-100); Monocytes Absolute Auto 0.4 K/mm3 (0.1-0.6); Monocytes Percent Auto 5.6 % (2.6-8.5); Neutrophils Absolute Auto 6.2 K/mm3 (1.3-6.7); Neutrophils Percent Auto 85.1 % (45.5-73.1); Platelet Count Result 216 k/mm3 (150-375); Red Blood Count 5.46 M/mm3 (4.6-6.20); Red Cell Distribution Width 12.4 % (11.5-14.5); White Blood Count 7.3 K/mm3 (4.5-10.0)
[2021-09-19 15:06] LABS: Alveolar/Arterial O2 Gradient 134.5 mmHg; Base Excess ABG -3.4 mEq/l (+/-2.0); Device NASAL CANNULA; Fractional Inspired Oxygen 36 %; HCO3 ABG 18.9 mEq/l (22.0-26.0); Modified Allen's Test Pass; Oxygen Content ABG 22.1 %vol (16.0-22.0); Oxygen Saturation ABG 97.3 % (95.0-100.0); Oxyhemoglobin 95.7 % THb (90.0-100.0); PO2 ABG 89.7 mmHg (80.0-100.0); PO2 FiO2 Ratio Arterial Blood 2.49 %; Site Drawn RIGHT RADIAL; Total Hemoglobin 16.4 g/dL (12.0-18.0); pH ABG 7.447 (7.350-7.450)
[2021-09-19 15:07] LABS: Alanine Aminotransferase 32 U/L (4-50); Alkaline Phosphatase 64 U/L (38-126); Anion Gap 12 mmol/L (8-16); Aspartate Amino Transferase 47 U/L (17-59); Bilirubin,Total 1.2 mg/dL (0.2-1.3); Blood Urea Nitrogen 28 mg/dL (9-20); Calcium 9.2 mg/dL (8.4-10.2); Carbon Dioxide 24 mmol/L (22-30); Chloride 97 mmol/L (98-107); Estimated CRCL calculation 58 ml/min; Estimated Glomerular Filt Rate > 60; Glucose 220 mg/dL (65-110); Potassium 4.6 mmol/L (3.4-5.0); Sodium 133 mmol/L (137-145)
--- NOTE | 2021-09-19 15:20 | ED.WEAKNESS ---
HPI - Weakness General Chief complaint: Weakness Stated complaint: dyspnea, recent COVID+ hospitalization Time Seen by Provider: 09/19/21 14:26 Source: patient History of Present Illness HPI Narrative: Patient presents for weakness for the past 10 days. Patient was recently admitted and noted to have Covid patient was recovering well and discharged home he had no prior oxygen requirement. Persistent dizziness getting worse he is not able to take the medications prescribed due to weakness to return to the ER for evaluation. EMS noted hypoxia and started on oxygen. Patient does report of shortness of breath denies any abdominal pain, nausea, vomiting, fevers Related Data Home Medications Medication Instructions Recorded Confirmed gabapentin [Neurontin] 300 mg PO BID 06/10/20 09/11/21 metformin [Glucophage] 1,000 mg PO BID 08/01/20 09/11/21 Allergies Allergy/AdvReac Type Severity Reaction Status Date / Time No Known Allergies Allergy Verified 09/19/21 15:06 Review of Systems Review of Systems: CONSTITUTIONAL: Denies fever, chills, or sweats. EYES: Denies visual changes, redness, or discharge. ENT: Denies rhinorrhea, congestion, sore throat, or otalgia. CARDIOVASCULAR: Denies chest pain, palpitations, or edema. RESPIRATORY: Does report shortness of breath GASTROINTESTINAL: Denies abdominal pain, nausea, vomiting, or diarrhea. GENITOURINARY: Denies dysuria or hematuria. SKIN: Denies rash or itching. MUSCULOSKELETAL: Denies back pain, joint pain, or myalgia. NEUROLOGIC: Denies headache, numbness, dizziness, or weakness. PSYCHIATRIC: Denies anxiety or depression. All systems reviewed & are unremarkable except as noted in HPI and below PMFSH Past Medical History Medical History Cellulitis of left foot Chronic constipation Diabetes mellitus Diabetic foot ulcer associated with diabetes mellitus due to underlying condition Diabetic peripheral neuropathy Encounter for postoperative care Group beta Strep positive Hypertension Impotence Necrotizing fasciitis of ankle and foot Noncompliance with medication regimen Overweight (BMI 25.0-29.9) Peripheral artery disease Uncontrolled diabetes mellitus Surgical History Surgical History H/O arthroscopy of right knee Status post surgical removal of nail matrix of toe Family History Family History Father , age 62 Myocardial infarct Lung disease Mother , age 73 Lung disease Sibling , age 67 Lung disease Social History Social History Social History: The patient currently lives at home alone 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 He is a lifelong nonsmoker. No alcohol or illicit drugs. The patient stated that he quit drinking after the last visit here at the hospital. Code status full code Smoking status: Never smoker Second hand tobacco smoke exposure: Yes Alcohol intake: former Drinks per week: 3 Alcohol use details: The patient reports that he used to be a very heavy drinker drinking approximately 10 beers and 10 shots in 1 day. He has since became a social drinker. Specifically since the beginning of - he occasionally has 1-3 beers while out with his significant other. Substance use: never Substance use type: does not use Last use: ONCE A MONTH Additional occupation/education comments: see above Gender identity (if verbalized by the patient): Male Spiritual care concerns: No Agree to blood products: Yes Exam Narrative: GENERAL: Well-appearing, well-nourished, and in no acute distress. HEAD: Normocephalic, atraumatic. EYES: PERRLA and EOMI. ENT: Nares clear, no rhinorrhea or epistaxis. Mucous membranes moist. NECK: Supple. No masses. No JVD CHEST: Clear to a
[2021-09-19] MEDS: methylPREDNISolone SOD SUCC 125 MG VIAL IV PUSH (15:24)
[2021-09-19 17:41] LABS: Glucose Point of Care 221 mg/dl (65-105)
--- NOTE | 2021-09-19 18:30 | PM.IMHP ---
H&P: HPI History of Present Illness Date/Time: 09/19/21 18:30 Chief Complaint: Weakness. Narrative: This is a 65-year-old male with type 2 diabetes mellitus who presented to the emergency department via EMS from home for evaluation of weakness. He was noticed with COVID-19 on 09/10/2021 and in fact he was admitted to this hospital overnight on that day. He had no oxygen requirement and he was discharged the following day with a prescription for dexamethasone 6 mg daily for 10 days. He did not take those, however. Unfortunately he has not felt any better since that time and in fact he feels worse. He has not been able to do much due to ongoing fatigue and weakness, and that includes taking his medication. His appetite has been poor and he feels dehydrated. This morning he was feeling short of breath and lightheaded and decided to come in for evaluation. Since arrival to the emergency department he has developed an oxygen requirement and he is now on 2 L nasal cannula with an SPO2 in the mid 90s. Chest CTA showed no obvious pulmonary emboli though evaluation was limited in the segmental arteries as well as diffuse COVID pneumonia. He is being admitted in this setting. He denies fever, chills, sweats, chest pain, pleuritic pain, nausea, vomiting, and diarrhea. Review of Systems Review of Systems: 12 systems were reviewed and are negative except for as per HPI. [facility] Past Medical History Medical History (Updated 09/19/21 @ 21:36 by Rasheeda Potts PA-C) Chronic constipation Diabetic foot ulcer associated with diabetes mellitus due to underlying condition Diabetic peripheral neuropathy Hypertension Impotence Necrotizing fasciitis of ankle and foot Overweight (BMI 25.0-29.9) Peripheral artery disease Type 2 diabetes mellitus Uncontrolled diabetes mellitus Surgical History Surgical History (Updated 09/19/21 @ 21:31 by Rasheeda Potts PA-C) History of arthroscopy of right knee Status post surgical removal of nail matrix of toe Family History Family History Father , age 62 Myocardial infarct Lung disease Mother , age 73 Lung disease Sibling , age 67 Lung disease Social History Social History (Updated 09/19/21 @ 21:32 by Rasheeda Potts PA-C) Social History: The patient lives in his own home in [place] with his cats. He is retired. Lifelong non-smoker. No current alcohol use but he reports drinking heavier in the past. No illicit substance use. Surrogate decision-maker: Mark Nair (friend). CODE STATUS: Full code. Meds Home Medications and Allergies Home Medications Medication Instructions Recorded Confirmed Type OneTouch Verio test strips #30 each NS 05/19/20 09/19/21 Rx blood-glucose meter [OneTouch #1 each NS 05/19/20 09/19/21 Rx Verio Flex meter] insulin syringe,safetyneedle #30 each NS 05/19/20 09/19/21 Rx lancets [OneTouch Delica Plus #30 each NS 05/19/20 09/19/21 Rx Lancet] metformin [Glucophage] 1,000 mg PO BID 08/01/20 09/19/21 History albuterol sulfate [Proventil HFA] 2 puff INHALATION Q6HRT PRN #1 inh 09/11/21 09/19/21 Rx dexamethasone 6 mg PO DAILY #10 tablet 09/11/21 09/19/21 Rx gabapentin [Neurontin] 300 mg PO Q8HR #30 cap 09/11/21 09/19/21 Rx guaifenesin [Mucus Relief ER] 1,200 mg PO Q12HR #30 tablet 09/11/21 09/19/21 Rx Allergies Allergy/AdvReac Type Severity Reaction Status Date / Time No Known Allergies Allergy Verified 09/19/21 15:06 Vital Signs Vital Signs - 24 hr 09/19/21 14:18 09/19/21 14:26 09/19/21 14:30 Temperature 98.3 F Pulse Rate 96 94 98 Respiratory Rate 26 H 33 H 24 H Blood Pressure 164/99 H Pulse Oximetry 92 90 94 09/19/21 14:45 09/19/21 15:00 09/19/21 15:04 Temperature Pulse Rate 95 98 96 Respiratory Rate 28 H 31 H Blood Pressure Pulse Oximetry 96 97 09/19/21 15:15 09/19/21 15:26 09/19/21 15:45 Temperature Pulse Rate 92 97
--- NOTE | 2021-09-19 19:02 | ADMGEN ---
This patient, Rhett Spann, was admitted to [facility] Surg Room 326-01 at 1850. Report per Mark. Patient/family oriented to hospital policies and general routines including ID bracelet, bed and alarms, visiting hours, pain management, procedures, bathroom and other care routines, personal items, smoking policy, room service/diet, and visiting hours. Information on how to activate the Rapid Response Team has been discussed. Patient/Family are encouraged to report perceived risks to care and to ask questions if they do not understand what they are told or what they should do.
[2021-09-19] MEDS: SODIUM CHLORIDE 0.9% IV 1,000 ML 125 ML IV CONT (20:59)
[2021-09-19 22:31] LABS: INR 1.1; Prothrombin Time 14.1 Seconds (11.1-14.7)
[2021-09-19 22:32] LABS: Alanine Aminotransferase 33 U/L (4-50); Estimated CRCL calculation 67 ml/min; Estimated Glomerular Filt Rate > 60
[2021-09-19 22:46] LABS: Hemoglobin A1C 10.9 % (<5.7)
[2021-09-19 22:48] LABS: Glucose Point of Care 279 mg/dl (65-105)
[2021-09-19] MEDS: GABAPENTIN 300 MG CAPSULE PO (23:24)
[2021-09-19] MEDS: REMDESIVIR 200 MG/NS 250 ML 200 MG/250 ML BAG 250 MG IVPB (23:24)
[2021-09-20] VITALS (12 sets, daily range): BP systolic 112–151; BP diastolic 58–101; PULSE 66–81; RESP 18–32; TEMP 36–36.6; O2SAT 93–99
[2021-09-20] MEDS: GABAPENTIN 300 MG CAPSULE PO ×3 (05:16→21:24)
[2021-09-20 06:28] LABS: Hematocrit 46.2 % (42.0-52.0); Hemoglobin 15.3 g/dL (14.0-18.0); Mean Corpuscular HGB Conc 33.1 g/dl (32-36); Mean Corpuscular Hemoglobin 29.8 pg (26-34); Mean Corpuscular Volume 89.9 fl (80-100); Mean Platelet Volume 11.1 fl (7.4-10.4); Platelet Count Result 207 k/mm3 (150-375); Red Blood Count 5.14 M/mm3 (4.6-6.20); Red Cell Distribution Width 12.5 % (11.5-14.5); White Blood Count 4.5 K/mm3 (4.5-10.0)
[2021-09-20 06:37] LABS: INR 1.1; Prothrombin Time 14.5 Seconds (11.1-14.7)
[2021-09-20 07:22] LABS: Alanine Aminotransferase 31 U/L (4-50); Albumin Level 3.7 g/dL (3.5-5.1); Alkaline Phosphatase 59 U/L (38-126); Anion Gap 15 mmol/L (8-16); Aspartate Amino Transferase 31 U/L (17-59); Bilirubin,Total 0.9 mg/dL (0.2-1.3); Blood Urea Nitrogen 33 mg/dL (9-20); CRP 21.1 mg/dL (<1.0); Calcium 8.8 mg/dL (8.4-10.2); Carbon Dioxide 18 mmol/L (22-30); Chloride 101 mmol/L (98-107); Estimated CRCL calculation 61 ml/min; Estimated Glomerular Filt Rate > 60; Glucose 302 mg/dL (65-110); Lactate Dehydrogenase 903 U/L (313-618); Magnesium 2.4 mg/dL (1.6-2.3); Sodium 134 mmol/L (137-145)
[2021-09-20] MEDS: INSULIN ASPART (*BKC) 100 UNITS/ML SUB-Q ×4 (08:17→22:55)
[2021-09-20] MEDS: SODIUM CHLORIDE 0.9% IV 1,000 ML 125 ML IV CONT (08:17)
[2021-09-20] MEDS: ENOXAPARIN 40 MG/0.4 ML SYRINGE SUB-Q (08:19)
[2021-09-20] MEDS: DEXAMETHASONE 2 MG TABLET 6 MG PO (08:19)
[2021-09-20 08:38] LABS: Glucose Point of Care 281 mg/dl (65-105)
[2021-09-20 08:49] LABS: Ferritin > 2000.00 ng/mL (11.1-264)
--- NOTE | 2021-09-20 09:42 | PM.IMPN ---
Progress Note: A&P Assessment and Plan (1) Acute respiratory failure with hypoxia: Code(s): J96.01 - Acute respiratory failure with hypoxia Status: Acute Assessment and Plan: Secondary to diffuse COVID pneumonia. No pulmonary embolism evident on CT. Wean oxygen as tolerated. (2) Pneumonia due to COVID-19 virus: Code(s): U07.1 - COVID-19; J12.82 - Pneumonia due to coronavirus disease 2018 Status: Acute Assessment and Plan: Patient has been started on remdesivir and dexamethasone. Continue isolation. (3) Type 2 diabetes mellitus: Code(s): E11.9 - Type 2 diabetes mellitus without complications Status: Acute Assessment and Plan: Poorly controlled with a recent A1c of around 10%. Initiate sliding scale insulin. Hold metformin as he received IV contrast. Additional Plan 09/20/2021 Will continue with current plan of care and treatment. Monitor oxygen culture report. Would repeat chest x-ray in the morning Subjective Date/time seen: 09/20/21 09:42 Patient was seen during the morning rounds today. Mild shortness of breath no chest pain. No abdominal pain, nausea, no vomiting. Mood stable. Review of Systems Review of Systems: All systems reviewed & are unremarkable except as noted in HPI and below (the history and physical examination.) Exam Narrative: General: Mildly ill-appearing male sitting up in bed. Weight: 92.2 kg. BMI: 29.2. HEENT: PERRL, EOMI. Sclerae anicteric. Oral mucosa moist. Dry mucous membranes. Neck: Supple. No JVD or lymphadenopathy. Respiratory: Respirations are nonlabored. Demonstrates mild conversational dyspnea. Diffuse crackles heard throughout all lung barrientos. Cardiovascular: Regular rate and rhythm with S1-S2. Gastrointestinal: Abdomen is soft, nontender, and nondistended with positive bowel sounds. Skin: Warm and dry. No rash or lesions on limited exam. Extremities: No cyanosis, clubbing, or edema. Radial and pedal pulses intact. Neurological: Alert. Cranial nerves 2-12 are grossly intact. No gross focal deficits to casual conversation. Psychiatric: Appropriate mood and affect. Objective Data Vital Signs Vital Signs: Vital Signs - 24 hr 09/19/21 14:18 09/19/21 14:26 09/19/21 14:30 Temperature 36.8 C Pulse Rate 96 94 98 Respiratory Rate 26 H 33 H 24 H Blood Pressure 164/99 H Pulse Oximetry 92 90 94 09/19/21 14:45 09/19/21 15:00 09/19/21 15:04 Temperature Pulse Rate 95 98 96 Respiratory Rate 28 H 31 H Blood Pressure Pulse Oximetry 96 97 09/19/21 15:15 09/19/21 15:26 09/19/21 15:45 Temperature Pulse Rate 92 97 88 Respiratory Rate 31 H 32 H 30 H Blood Pressure 112/83 138/76 Pulse Oximetry 99 96 97 09/19/21 16:00 09/19/21 16:01 09/19/21 16:15 Temperature Pulse Rate 86 87 87 Respiratory Rate 31 H 33 H 32 H Blood Pressure 138/74 Pulse Oximetry 96 97 92 09/19/21 16:16 09/19/21 16:17 09/19/21 16:30 Temperature Pulse Rate 88 90 86 Respiratory Rate 25 H 33 H 26 H Blood Pressure 146/79 H Pulse Oximetry 93 92 91 09/19/21 16:31 09/19/21 16:45 09/19/21 16:46 Temperature Pulse Rate 86 86 85 Respiratory Rate 32 H 33 H 33 H Blood Pressure 134/83 136/82 Pulse Oximetry 92 90 92 09/19/21 17:00 09/19/21 17:01 09/19/21 17:02 Temperature Pulse Rate 89 88 85 Respiratory Rate 25 H 38 H 32 H Blood Pressure 126/96 H Pulse Oximetry 94 93 93 09/19/21 17:15 09/19/21 17:16 09/19/21 17:30 Temperature Pulse Rate 83 82 82 Respiratory Rate 17 16 27 H Blood Pressure 111/81 130/76 Pulse Oximetry 85 L 09/19/21 17:31 09/19/21 17:45 09/19/21 17:46 Temperature Pulse Rate 83 80 81 Respiratory Rate 35 H 28 H 26 H Blood Pressure 128/89 Pulse Oximetry 87 L 09/19/21 18:00 09/19/21 18:01 09/19/21 19:25 Temperature 36.4 C L Pulse Rate 83 83 81 Respiratory Rate 28 H 20 Blood Pressure 125/85 128/79 Pulse Oximetry 93 92 09/19/21 22:58 02/0
[2021-09-20] MEDS: IPRATROPIUM BR 0.02% INH SOLN 0.5 MG/2.5 ML VIAL INHALATION (09:46)
[2021-09-20] MEDS: ALBUTEROL SULFATE NEB 2.5 MG/0.5 ML INH INHALATION (09:46)
[2021-09-20 10:15] LABS: pH ABG 7.406 (7.350-7.450)
[2021-09-20 10:18] LABS: Base Excess ABG -8.9 mEq/l (+/-2.0); HCO3 ABG 14.4 mEq/l (22.0-26.0); Oxygen Saturation ABG 91.8 % (95.0-100.0); PCO2 ABG 23.5 mmHg (35.0-45.0); PO2 ABG 59.9 mmHg (80.0-100.0); Total Hemoglobin 9.7 g/dL (12.0-18.0)
[2021-09-20 10:20] LABS: Alveolar/Arterial O2 Gradient 61.7 mmHg
[2021-09-20 10:21] LABS: Carboxyhemoglobin 0.2 % THb (0-2.0); Fractional Inspired Oxygen 21 %; Methemoglobin ABG 0.1 %THb (0-1.5); Modified Allen's Test Pass; Oxyhemoglobin 89.4 % THb (90.0-100.0); PO2 FiO2 Ratio Arterial Blood 2.85 %; Reduced Hemoglobin 10.3 %THb (0-5.0); Site Drawn RIGHT RADIAL
[2021-09-20 10:22] LABS: Device ROOM AIR; Oxygen Content ABG 12.2 %vol (16.0-22.0)
[2021-09-20] MEDS: ACETAMINOPHEN 325 MG TABLET 650 MG PO (11:55)
[2021-09-20 12:02] LABS: Glucose Point of Care 299 mg/dl (65-105)
[2021-09-20 16:19] LABS: Glucose Point of Care 425 mg/dl (65-105)
[2021-09-20] MEDS: INSULIN ASPART (*BKC) 100 UNITS/ML 10 UNITS SUB-Q (17:05)
[2021-09-20] MEDS: REMDESIVIR 100 MG/NS 250 ML 100 MG/250 ML BAG 250 MG IVPB (21:24)
[2021-09-20 22:17] LABS: Glucose Point of Care 285 mg/dl (65-105)
[2021-09-20] MEDS: ALPRAZolam (*CRX) 0.25 MG TABLET PO (22:55)
[2021-09-21] VITALS (8 sets, daily range): BP systolic 116–131; BP diastolic 67–97; PULSE 63–89; RESP 18–22; TEMP 36.1–36.5; O2SAT 88–97; BMI 29.4
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
[2021-09-21] MEDS: GABAPENTIN 300 MG CAPSULE PO ×3 (05:08→21:09)
[2021-09-21 07:44] LABS: Alanine Aminotransferase 21 U/L (4-50); Estimated CRCL calculation 74 ml/min; Estimated Glomerular Filt Rate > 60
[2021-09-21 08:09] LABS: Glucose Point of Care 283 mg/dl (65-105)
[2021-09-21 08:37] LABS: INR 1.3; Prothrombin Time 15.6 Seconds (11.1-14.7)
[2021-09-21] MEDS: ENOXAPARIN 40 MG/0.4 ML SYRINGE SUB-Q (08:56)
[2021-09-21] MEDS: DEXAMETHASONE 2 MG TABLET 6 MG PO (08:56)
[2021-09-21] MEDS: INSULIN ASPART (*BKC) 100 UNITS/ML SUB-Q ×4 (08:57→16:57)
[2021-09-21] MEDS: PANTOPRAZOLE 40 MG TABLET PO (08:57)
[2021-09-21 09:29] LABS: Influenza Control Positive
[2021-09-21 12:08] LABS: Glucose Point of Care 392 mg/dl (65-105)
[2021-09-21] MEDS: ALBUTEROL SULFATE NEB 2.5 MG/0.5 ML INH INHALATION (12:41)
[2021-09-21] MEDS: IPRATROPIUM BR 0.02% INH SOLN 0.5 MG/2.5 ML VIAL INHALATION (12:42)
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
[2021-09-21 16:35] LABS: Glucose Point of Care 391 mg/dl (65-105)
[2021-09-21] MEDS: LORazepam (*CRX) 0.5 MG TABLET PO (19:07)
[2021-09-21] MEDS: guaiFENesin 12 HR 600 MG TABCR PO (21:09)
[2021-09-21] MEDS: REMDESIVIR 100 MG/NS 250 ML 100 MG/250 ML BAG 250 MG IVPB (21:09)
[2021-09-21] MEDS: INSULIN GLARGINE (*BKC) 100 UNITS/ML 23 UNITS SUB-Q (21:18)
[2021-09-21 21:35] LABS: Glucose Point of Care 337 mg/dl (65-105)
[2021-09-21] MEDS: INSULIN ASPART (*BKC) 100 UNITS/ML 6 UNITS SUB-Q (23:18)
[2021-09-22] VITALS (8 sets, daily range): BP systolic 120–138; BP diastolic 52–73; PULSE 60–78; RESP 18–20; TEMP 36.1–37.1; O2SAT 91–98
--- NOTE | 2021-09-22 | ECHO_ITS ---
Patient Info Name: Rhett Spann Age: 65 years : 1955 Gender: Male Ht: 70 in Wt: 205 lbs BSA: 2.17 m2 HR: 61 bpm BP: 120 / 52 mmHg Heart Rhythm: Sinus Rhythm Technical Quality: Fair Exam Date: 09/22/2021 10:28 AM Exam Location: [facility] Patient Status: Inpatient Admit Date: 09/19/2021 Staff Ordering Physician: Kelsi Pepe PA-C [employer] Supervisor: Helena Zepeda RDCS Attending Provider: Alicia Rodriguez NP Referring Physician: Cristine ECHEVERRIA Exam Type: CA echo doppler color flow Study Info Indications - covid Complete two-dimensional, color flow and Doppler transthoracic echocardiogram is performed. Summary 1. Complete two-dimensional, color flow and Doppler transthoracic echocardiogram is performed. 2. Left ventricular chamber dimension is normal. 3. Left ventricular systolic function is normal, estimated at 60-65%. 4. Ventricular septum is sigmoid shaped. No LVOT obstruction. 5. There is mildly increased left ventricular wall thickness. 6. The left ventricular diastolic function is grade I diastolic dysfunction. 7. E/e' 8 is minimally elevated. 8. Right ventricular systolic function is reduced based on mildly abnormal TAPSE 1.6 cm. 9. There is trace mitral valve regurgitation. 10. No pulmonary hypertension, estimated pulmonary arterial systolic pressure is 20 mmHg. Left Ventricle Ventricular septum is sigmoid shaped. No LVOT obstruction. E/e' 8 is minimally elevated. Left ventricular chamber dimension is normal. Left ventricular systolic function is normal, estimated at 60-65%. There is mildly increased left ventricular wall thickness. The left ventricular diastolic function is grade I diastolic dysfunction. Right Ventricle Right ventricular chamber dimension is not well visualized. Right ventricular systolic function is reduced based on mildly abnormal TAPSE 1.6 cm. Left Atria Left atrial chamber dimension is normal. Right Atria Right atrial chamber dimension is normal. Aortic Valve The aortic valve is trileaflet. There is no aortic valve stenosis. There is no aortic valve regurgitation. Pulmonic Valve There is no pulmonic regurgitation. Mitral Valve There is no mitral valve stenosis. There is trace mitral valve regurgitation. Tricuspid Valve There is no tricuspid valve regurgitation. No pulmonary hypertension, estimated pulmonary arterial systolic pressure is 20 mmHg. Pericardium/Pleural There is no pericardial effusion. Inferior Vena Cava Normal inferior vena cava with >50% collapse upon inspiration consistent with normal right atrial pressure, 5 mmHg. Aorta The aortic root size at the sinus of Valsalva is normal. Left Ventricular Outflow Tract Name Value Normal LVOT 2D LVOT Diameter 2.1 cm LVOT Doppler LVOT Peak Gradient 5 mmHg LVOT Mean Gradient 3 mmHg LVOT VTI 21 cm LVOT VTI/AV VTI Ratio 1.0 LVOT Stroke Volume 72 ml LVOT CO 5.1 l/min
[2021-09-22] MEDS: GABAPENTIN 300 MG CAPSULE PO ×3 (06:21→21:17)
[2021-09-22 07:53] LABS: Glucose Point of Care 223 mg/dl (65-105)
[2021-09-22 08:23] LABS: Hematocrit 42.5 % (42.0-52.0); Hemoglobin 14.9 g/dL (14.0-18.0); Mean Corpuscular HGB Conc 35.1 g/dl (32-36); Mean Corpuscular Hemoglobin 30.4 pg (26-34); Mean Corpuscular Volume 86.7 fl (80-100); Mean Platelet Volume 10.7 fl (7.4-10.4); Platelet Count Result 212 k/mm3 (150-375); Red Cell Distribution Width 12.2 % (11.5-14.5); White Blood Count 8.4 K/mm3 (4.5-10.0)
[2021-09-22 08:32] LABS: INR 1.1
[2021-09-22 08:37] LABS: Alanine Aminotransferase 19 U/L (4-50); Albumin Level 3.4 g/dL (3.5-5.1); Alkaline Phosphatase 54 U/L (38-126); Anion Gap 3 mmol/L (8-16); Aspartate Amino Transferase 21 U/L (17-59); Bilirubin,Total 0.7 mg/dL (0.2-1.3); Blood Urea Nitrogen 23 mg/dL (9-20); CRP 4.7 mg/dL (<1.0); Calcium 8.6 mg/dL (8.4-10.2); Carbon Dioxide 27 mmol/L (22-30); Chloride 104 mmol/L (98-107); Estimated CRCL calculation 67 ml/min; Estimated Glomerular Filt Rate > 60; Glucose 243 mg/dL (65-110); Lactate Dehydrogenase 730 U/L (313-618); Potassium 4.6 mmol/L (3.4-5.0); Sodium 134 mmol/L (137-145)
[2021-09-22] MEDS: INSULIN ASPART (*BKC) 100 UNITS/ML SUB-Q ×7 (09:16→22:20)
[2021-09-22] MEDS: PANTOPRAZOLE 40 MG TABLET PO (09:17)
[2021-09-22] MEDS: ENOXAPARIN 40 MG/0.4 ML SYRINGE SUB-Q (09:18)
[2021-09-22] MEDS: DEXAMETHASONE 2 MG TABLET 6 MG PO (09:18)
[2021-09-22] MEDS: guaiFENesin 12 HR 600 MG TABCR PO ×2 (09:18→21:17)
--- NOTE | 2021-09-22 09:41 | PM.IMPN ---
Progress Note: A&P Assessment and Plan (1) Acute respiratory failure with hypoxia: Code(s): J96.01 - Acute respiratory failure with hypoxia Status: Acute Assessment and Plan: Secondary to diffuse COVID pneumonia. recently hospitalized for COVID-19 pneumonia who is seen in follow-up again for COVID-19 pneumonia. continues to require supplemental oxygen, was 2 L and now is up to 6 L of oxygen per nasal cannula. started him on baricitinib today, this is his 2nd hospital visit/ admission for COVID pneumonia and oxygen requirements increasing tested negative for influenza. ferritin level improved slightly today from>2000 to 18 60. LDH 730. CRP 4.7. checking serial inflammatory markers and trending. not tolerating using the incentive spirometer, he could only get 1 breath in which was 1 L volume, but it made him severely short of breath. Infrequent cough, nonproductive. complain of a chest heaviness with breathing, this is not new he stated, but has been persistent with his COVID infection. CTA of the chest on the which showed no PEs, on the had a chest x-ray which did not show any improvement in his COVID pneumonia. another chest x-ray for tomorrow morning and serial CXRs. ECHO showed grade 1 diastolic dysfunction with an LVEF of 60-65%, a sigmoid ventricular septum and no pulmonary hypertension. (2) Pneumonia due to COVID-19 virus: Code(s): U07.1 - COVID-19; J12.82 - Pneumonia due to coronavirus disease 2019 Status: Acute Assessment and Plan: COVID positive 09/10/21 Patient admitted 09/10-09/11 but returned with progressive weakness. Continue dexamethasone and remdesivir. Monitor LFTs. Given duration of symptoms, was started on Ceftriaxone and Azithromycin 09/20/21 for concomitant bacterial pneumonia coverage. Continue isolation precautions Supportive care to include bronchodilators, expectorants, incentive spirometry continues to require supplemental oxygen, was 2 L and now is up to 6 L of oxygen per nasal cannula. started him on baricitinib today, this is his 2nd hospital visit/ admission for COVID pneumonia and oxygen requirements increasing ferritin level improved slightly today from>2000 to 18 60. LDH 730. CRP 4.7. checking serial inflammatory markers and trending. not tolerating using the incentive spirometer, he could only get 1 breath in which was 1 L volume, but it made him severely short of breath. Infrequent cough, nonproductive. (3) Type 2 diabetes mellitus: Code(s): E11.9 - Type 2 diabetes mellitus without complications Status: Acute Assessment and Plan: Poorly controlled with a recent A1c of 10.9% Blood sugars elevated especially with IV steroids from to 0 2-302 Continue accuchecks, high dose sliding scale insulin, hypoglycemic protocol Add scheduled novolog 4 units with meals, increase to 6 units with meals today Add lantus 23 units qHS., increased to 25 units of Lantus today Metformin on hold given recent IV contrast Continue diabetic diet (4) Anxiety: Code(s): F41.9 - Anxiety disorder, unspecified Status: Acute Assessment and Plan: Feeling feeling better today and has not even required the p.r.n. Ativan Lorazepam 0.5 mg po q6h PRN Appreciate care coordination to provide counseling resources to the patient Subjective Date/time seen: 09/22/21 09:41 Interval history: Date of service: 09/22/2021 Rhett Spann a 65-year-old male with a history of poorly controlled type 2 diabetes mellitus, hypertension, peripheral artery disease, recently hospitalized for COVID-19 pneumonia who is seen in follow-up again for COVID-19 pneumonia. He feels very poorly again today, may be feeling ever so slightly better. But he continues to require supplemental oxygen, was 2 L and now is up to 6 L of oxygen per nasal cannula. I started him on baricitinib today, this is his 2nd hospital visit/ admission for COVID pneumonia. He tested negat
[2021-09-22 11:23] LABS: Glucose Point of Care 301 mg/dl (65-105)
[2021-09-22 16:26] LABS: Glucose Point of Care 359 mg/dl (65-105)
[2021-09-22 17:06] LABS: Basophils Percent Auto 0.1 % (0.2-1.2); Eosinophils Percent Auto 0.2 % (0-4.4); Hematocrit 40.7 % (42.0-52.0); Hemoglobin 14.5 g/dL (14.0-18.0); Immature Granulocyte Absolute 0.07 K/mm3 (0.00-0.031); Immature Granulocyte Percent A 0.8 % (0-0.5); Lymphocytes Percent Auto 4.5 % (18.3-44.2); Mean Corpuscular HGB Conc 35.6 g/dl (32-36); Mean Corpuscular Volume 84.3 fl (80-100); Mean Platelet Volume 11.1 fl (7.4-10.4); Monocytes Absolute Auto 0.5 K/mm3 (0.1-0.6); Monocytes Percent Auto 5.5 % (2.6-8.5); Neutrophils Absolute Auto 7.9 K/mm3 (1.3-6.7); Neutrophils Percent Auto 88.9 % (45.5-73.1); Platelet Count Result 225 k/mm3 (150-375); Red Blood Count 4.83 M/mm3 (4.6-6.20); Red Cell Distribution Width 12.1 % (11.5-14.5); White Blood Count 8.9 K/mm3 (4.5-10.0)
[2021-09-22 17:35] LABS: Ovalocytes 1+ (NORMAL); Platelet Estimate Adequate (Adequate)
[2021-09-22] MEDS: REMDESIVIR 100 MG/NS 250 ML 100 MG/250 ML BAG 250 MG IVPB (21:17)
[2021-09-22] MEDS: LORazepam (*CRX) 0.5 MG TABLET PO (21:34)
[2021-09-22] MEDS: INSULIN GLARGINE (*BKC) 100 UNITS/ML 25 UNITS SUB-Q (22:04)
[2021-09-22] MEDS: ALBUTEROL SULFATE NEB 2.5 MG/0.5 ML INH INHALATION (22:06)
[2021-09-22] MEDS: IPRATROPIUM BR 0.02% INH SOLN 0.5 MG/2.5 ML VIAL INHALATION (22:07)
[2021-09-22 22:50] LABS: Glucose Point of Care 350 mg/dl (65-105)
[2021-09-23] VITALS (13 sets, daily range): BP systolic 119–136; BP diastolic 53–72; PULSE 61–89; RESP 16–20; TEMP 36.3–36.9; O2SAT 89–97
--- NOTE | 2021-09-23 02:42 | PCRCNOTE ---
Pt stated he did not want to be woken up at this hour for a treatment, that he needs sleep. Pt did not receive 09/23 199 UPD treatment.
[2021-09-23] MEDS: GABAPENTIN 300 MG CAPSULE PO ×3 (05:40→21:17)
[2021-09-23 07:26] LABS: Eosinophils Absolute Auto 0.1 K/mm3 (0-0.3); Eosinophils Percent Auto 1.7 % (0-4.4); Hematocrit 40.4 % (42.0-52.0); Immature Granulocyte Absolute 0.07 K/mm3 (0.00-0.031); Immature Granulocyte Percent A 0.9 % (0-0.5); Lymphocytes Percent Auto 9.3 % (18.3-44.2); Mean Corpuscular HGB Conc 34.7 g/dl (32-36); Mean Corpuscular Hemoglobin 30.4 pg (26-34); Mean Corpuscular Volume 87.6 fl (80-100); Mean Platelet Volume 11.4 fl (7.4-10.4); Monocytes Absolute Auto 0.6 K/mm3 (0.1-0.6); Monocytes Percent Auto 7.3 % (2.6-8.5); Neutrophils Absolute Auto 6.1 K/mm3 (1.3-6.7); Neutrophils Percent Auto 80.8 % (45.5-73.1); Platelet Count Result 204 k/mm3 (150-375); Red Blood Count 4.61 M/mm3 (4.6-6.20); Red Cell Distribution Width 12.3 % (11.5-14.5); White Blood Count 7.5 K/mm3 (4.5-10.0)
[2021-09-23 07:30] LABS: INR 1.2; Prothrombin Time 14.6 Seconds (11.1-14.7)
[2021-09-23 07:35] LABS: Alanine Aminotransferase 15 U/L (4-50); Alkaline Phosphatase 50 U/L (38-126); Anion Gap 3 mmol/L (8-16); Aspartate Amino Transferase 20 U/L (17-59); Bilirubin,Total 0.5 mg/dL (0.2-1.3); Blood Urea Nitrogen 19 mg/dL (9-20); CRP 4.5 mg/dL (<1.0); Calcium 8.3 mg/dL (8.4-10.2); Carbon Dioxide 26 mmol/L (22-30); Chloride 104 mmol/L (98-107); Estimated CRCL calculation 83 ml/min; Estimated Glomerular Filt Rate > 60; Glucose 210 mg/dL (65-110); Lactate Dehydrogenase 662 U/L (313-618); Potassium 4.3 mmol/L (3.4-5.0); Sodium 133 mmol/L (137-145)
[2021-09-23 07:39] LABS: NT Pro B Type Natriuretic Pept 131 pg/mL (5-100)
[2021-09-23] MEDS: IPRATROPIUM BR 0.02% INH SOLN 0.5 MG/2.5 ML VIAL INHALATION ×3 (08:05→21:15)
[2021-09-23] MEDS: ALBUTEROL SULFATE NEB 2.5 MG/0.5 ML INH INHALATION ×3 (08:05→21:15)
[2021-09-23 08:12] LABS: Glucose Point of Care 205 mg/dl (65-105)
[2021-09-23] MEDS: DEXAMETHASONE 2 MG TABLET 6 MG PO (08:31)
[2021-09-23] MEDS: ENOXAPARIN 40 MG/0.4 ML SYRINGE SUB-Q (08:31)
[2021-09-23] MEDS: PANTOPRAZOLE 40 MG TABLET PO (08:31)
[2021-09-23] MEDS: guaiFENesin 12 HR 600 MG TABCR PO ×2 (08:31→21:17)
[2021-09-23] MEDS: INSULIN ASPART (*BKC) 100 UNITS/ML 6 UNITS SUB-Q ×2 (08:32→11:54)
[2021-09-23] MEDS: INSULIN ASPART (*BKC) 100 UNITS/ML SUB-Q ×2 (08:33→17:35)
--- NOTE | 2021-09-23 09:28 | PM.IMPN ---
Progress Note: A&P Assessment and Plan (1) Acute respiratory failure with hypoxia: Code(s): J96.01 - Acute respiratory failure with hypoxia Status: Acute Assessment and Plan: Secondary to diffuse COVID pneumonia. recently hospitalized for COVID-19 pneumonia who is seen in follow-up again for COVID-19 pneumonia. continues to require supplemental oxygen, was 2 L and now is up to 6 L of oxygen per nasal cannula. started him on baricitinib today, this is his 2nd hospital visit/ admission for COVID pneumonia and oxygen requirements increasing tested negative for influenza. ferritin level improved slightly today from>2000 to 18 60. LDH 730. CRP 4.7. checking serial inflammatory markers and trending. not tolerating using the incentive spirometer, he could only get 1 breath in which was 1 L volume, but it made him severely short of breath. Infrequent cough, nonproductive. complain of a chest heaviness with breathing, this is not new he stated, but has been persistent with his COVID infection. CTA of the chest on the which showed no PEs, on the had a chest x-ray which did not show any improvement in his COVID pneumonia. another chest x-ray for tomorrow morning and serial CXRs. ECHO showed grade 1 diastolic dysfunction with an LVEF of 60-65%, a sigmoid ventricular septum and no pulmonary hypertension. (2) Pneumonia due to COVID-19 virus: Code(s): U07.1 - COVID-19; J12.82 - Pneumonia due to coronavirus disease 2019 Status: Acute Assessment and Plan: COVID positive 09/10/21 Patient admitted 09/10-09/11 but returned with progressive weakness. Continue dexamethasone and remdesivir. Monitor LFTs. Given duration of symptoms, was started on Ceftriaxone and Azithromycin 09/20/21 for concomitant bacterial pneumonia coverage. Continue isolation precautions Supportive care to include bronchodilators, expectorants, incentive spirometry continues to require supplemental oxygen, was 2 L and now is up to 6 L of oxygen per nasal cannula. started him on baricitinib yesterday, this is his 2nd hospital visit/ admission for COVID pneumonia and oxygen requirements increasing chest x-ray was unchanged inflammatory markers are all improving now tolerating using the incentive spirometer, no cough noted today (3) Type 2 diabetes mellitus: Code(s): E11.9 - Type 2 diabetes mellitus without complications Status: Acute Assessment and Plan: Poorly controlled with a recent A1c of 10.9% Blood sugars elevated especially with IV steroids Continue accuchecks, high dose sliding scale insulin, hypoglycemic protocol Add scheduled novolog 4 units with meals, increased to 8 units with meals today Add lantus 23 units qHS., increased to 25 units of Lantus today Metformin on hold given recent IV contrast Continue diabetic diet started on Lyrica in addition to Neurontin for neuropathy pain (4) Anxiety: Code(s): F41.9 - Anxiety disorder, unspecified Status: Acute Assessment and Plan: RESOLVED. Feeling feeling better today and has not even required the p.r.n. Ativan Lorazepam 0.5 mg po q6h PRN Appreciate care coordination to provide counseling resources to the patient Subjective Date/time seen: 09/23/21 09:28 Interval history: Date of service: 09/23/2021 Rhett Spann a 65-year-old male with a history of poorly controlled type 2 diabetes mellitus, hypertension, peripheral artery disease, recently hospitalized for COVID-19 pneumonia who is seen in follow-up again for COVID-19 pneumonia. Today he is looking and feeling much better today. He is no longer sitting in the tripod position. He is able to sit upright in the chair or lean back for comfort. He is currently sitting in his recliner, next to his bed. He is increasing his activity slowly. He has been using his incentive spirometer since yesterday's exam and is able to now get 1-1.5 ml volumes on his IS. He continues to
[2021-09-23] MEDS: BARICITINIB 2 MG TABLET 4 MG PO (11:29)
[2021-09-23 12:07] LABS: Glucose Point of Care 196 mg/dl (65-105)
[2021-09-23 17:02] LABS: Glucose Point of Care 338 mg/dl (65-105)
[2021-09-23] MEDS: OMEGA 3 POLYUNSAT FATTY ACIDS 1 GM CAP PO (17:34)
[2021-09-23] MEDS: PSYLLIUM SUGAR FREE POWDER PACKET 1 PACKET PO (17:35)
[2021-09-23] MEDS: REMDESIVIR 100 MG/NS 250 ML 100 MG/250 ML BAG 250 MG IVPB (21:16)
[2021-09-23] MEDS: LIDOCAINE 5% PATCH 2 PATCH TRANSDERM (21:25)
[2021-09-23] MEDS: INSULIN GLARGINE (*BKC) 100 UNITS/ML 25 UNITS SUB-Q (21:27)
[2021-09-23 21:46] LABS: Glucose Point of Care 299 mg/dl (65-105)
[2021-09-23] MEDS: PREGABALIN (*CRX) 75 MG CAPSULE PO (23:26)
[2021-09-24] VITALS (13 sets, daily range): BP systolic 102–132; BP diastolic 55–75; PULSE 60–89; RESP 16–19; TEMP 36.1–36.6; O2SAT 94–100
[2021-09-24] MEDS: ALBUTEROL SULFATE NEB 2.5 MG/0.5 ML INH INHALATION ×4 (02:16→21:11)
[2021-09-24] MEDS: IPRATROPIUM BR 0.02% INH SOLN 0.5 MG/2.5 ML VIAL INHALATION ×4 (02:16→21:11)
[2021-09-24] MEDS: GABAPENTIN 300 MG CAPSULE PO ×3 (06:21→22:16)
[2021-09-24 06:58] LABS: Basophils Percent Auto 0.3 % (0.2-1.2); Eosinophils Absolute Auto 0.1 K/mm3 (0-0.3); Eosinophils Percent Auto 1.5 % (0-4.4); Hematocrit 40.4 % (42.0-52.0); Immature Granulocyte Absolute 0.06 K/mm3 (0.00-0.031); Immature Granulocyte Percent A 0.9 % (0-0.5); Lymphocytes Absolute Auto 0.96 K/mm3 (0.9-3.2); Lymphocytes Percent Auto 14.5 % (18.3-44.2); Mean Corpuscular HGB Conc 34.7 g/dl (32-36); Mean Corpuscular Hemoglobin 30.2 pg (26-34); Mean Corpuscular Volume 87.3 fl (80-100); Mean Platelet Volume 11.2 fl (7.4-10.4); Monocytes Absolute Auto 0.5 K/mm3 (0.1-0.6); Monocytes Percent Auto 7.6 % (2.6-8.5); Neutrophils Percent Auto 75.2 % (45.5-73.1); Platelet Count Result 189 k/mm3 (150-375); Red Blood Count 4.63 M/mm3 (4.6-6.20); Red Cell Distribution Width 12.3 % (11.5-14.5); White Blood Count 6.6 K/mm3 (4.5-10.0)
[2021-09-24 07:07] LABS: Alanine Aminotransferase 19 U/L (4-50); Alkaline Phosphatase 48 U/L (38-126); Anion Gap 3 mmol/L (8-16); Aspartate Amino Transferase 24 U/L (17-59); Bilirubin,Total 0.5 mg/dL (0.2-1.3); Blood Urea Nitrogen 18 mg/dL (9-20); CRP 4.3 mg/dL (<1.0); Calcium 8.5 mg/dL (8.4-10.2); Carbon Dioxide 27 mmol/L (22-30); Chloride 103 mmol/L (98-107); Estimated CRCL calculation 83 ml/min; Estimated Glomerular Filt Rate > 60; Glucose 228 mg/dL (65-110); Lactate Dehydrogenase 608 U/L (313-618); Potassium 4.2 mmol/L (3.4-5.0); Sodium 133 mmol/L (137-145)
[2021-09-24 08:20] LABS: Glucose Point of Care 217 mg/dl (65-105)
[2021-09-24] MEDS: LIDOCAINE 5% PATCH 2 PATCH TRANSDERM (08:45)
[2021-09-24] MEDS: OMEGA 3 POLYUNSAT FATTY ACIDS 1 GM CAP PO ×2 (08:45→17:14)
[2021-09-24] MEDS: PANTOPRAZOLE 40 MG TABLET PO (08:45)
[2021-09-24] MEDS: PSYLLIUM SUGAR FREE POWDER PACKET 1 PACKET PO (08:45)
[2021-09-24] MEDS: PREGABALIN (*CRX) 75 MG CAPSULE PO ×2 (08:45→20:25)
[2021-09-24] MEDS: INSULIN ASPART (*BKC) 100 UNITS/ML SUB-Q ×3 (08:46→17:14)
[2021-09-24] MEDS: guaiFENesin 12 HR 600 MG TABCR PO ×2 (08:46→20:25)
[2021-09-24] MEDS: DEXAMETHASONE 2 MG TABLET 6 MG PO (08:46)
[2021-09-24] MEDS: ENOXAPARIN 40 MG/0.4 ML SYRINGE SUB-Q (08:46)
[2021-09-24] MEDS: INSULIN ASPART (*BKC) 100 UNITS/ML 8 UNITS SUB-Q ×3 (08:47→17:14)
[2021-09-24 09:52] LABS: INR 1.1; Prothrombin Time 13.8 Seconds (11.1-14.7)
[2021-09-24 11:42] LABS: Glucose Point of Care 400 mg/dl (65-105)
[2021-09-24] MEDS: BARICITINIB 2 MG TABLET 4 MG PO (11:52)
[2021-09-24 13:12] LABS: Glucose Point of Care 361 mg/dl (65-105)
[2021-09-24 16:24] LABS: Glucose Point of Care 276 mg/dl (65-105)
--- NOTE | 2021-09-24 17:42 | PM.IMPN ---
Progress Note: A&P Assessment and Plan (1) Acute respiratory failure with hypoxia: Code(s): J96.01 - Acute respiratory failure with hypoxia Status: Acute Assessment and Plan: Secondary to diffuse COVID pneumonia. recently hospitalized for COVID-19 pneumonia who is seen in follow-up again for COVID-19 pneumonia. continues to require supplemental oxygen, was 2 L and now is up to 6 L of oxygen per nasal cannula. started him on baricitinib 09/23 and 09/24 doses, this is his 2nd hospital visit/ admission for COVID pneumonia and oxygen requirements increasing tested negative for influenza. ferritin/CRP/LDH level improved slightly as noted above checking serial inflammatory markers and trending. not tolerating using the incentive spirometer, he could only get 1 breath in which was 1 L volume, but it made him severely short of breath. Infrequent cough, nonproductive. complain of a chest heaviness with breathing, this is not new he stated, but has been persistent with his COVID infection. CTA of the chest on the which showed no PEs, on the had a chest x-ray which did not show any improvement in his COVID pneumonia. another chest x-ray for tomorrow morning and serial CXRs. ECHO showed grade 1 diastolic dysfunction with an LVEF of 60-65%, a sigmoid ventricular septum and no pulmonary hypertension. (2) Pneumonia due to COVID-19 virus: Code(s): U07.1 - COVID-19; J12.82 - Pneumonia due to coronavirus disease 2019 Status: Acute Assessment and Plan: COVID positive 09/10/21 Patient admitted 09/10-09/11 but returned with progressive weakness. Continue dexamethasone and remdesivir. Monitor LFTs. Given duration of symptoms, was started on Ceftriaxone and Azithromycin 09/20/21 for concomitant bacterial pneumonia coverage. Continue isolation precautions Supportive care to include bronchodilators, expectorants, incentive spirometry continues to require supplemental oxygen, was 2 L and now is up to 6 L of oxygen per nasal cannula. started him on baricitinib yesterday, this is his 2nd hospital visit/ admission for COVID pneumonia and oxygen requirements increasing chest x-ray was unchanged inflammatory markers are all improving now tolerating using the incentive spirometer, no cough noted today (3) Type 2 diabetes mellitus: Code(s): E11.9 - Type 2 diabetes mellitus without complications Status: Acute Assessment and Plan: Poorly controlled with a recent A1c of 10.9% Blood sugars elevated especially with IV steroids Continue accuchecks, high dose sliding scale insulin, hypoglycemic protocol Add scheduled novolog 4 units with meals, increased to 8 units with meals Add lantus 23 units qHS., increased to 25 units of Lantus today Metformin on hold given recent IV contrast Continue diabetic diet started on Lyrica in addition to Neurontin for neuropathy pain (4) Anxiety: Code(s): F41.9 - Anxiety disorder, unspecified Status: Acute Assessment and Plan: RESOLVED. Feeling feeling better today and has not even required the p.r.n. Ativan Lorazepam 0.5 mg po q6h PRN Appreciate care coordination to provide counseling resources to the patient (5) Diabetic peripheral neuropathy: Code(s): E11.42 - Type 2 diabetes mellitus with diabetic polyneuropathy Status: Acute Assessment and Plan: Takes 4 doses a day of the 300 mg Neurontin but was prescribed 300 mg t.i.d. Currently on a 300 mg Neurontin t.i.d. Added 75 mg of Lyrica daily on 09/23 No complaints of neuropathy discomfort or pain today. Will revisit if Lyrica is improving his neuropathic s/s tomorrow with the patient. Subjective Date/time seen: 09/24/21 17:42 Interval history: Date of service: 09/24/2021 Rhett Spann a 65-year-old male with a history of poorly controlled type 2 diabetes mellitus, hypertension, peripheral artery disease, recently hospitalized for COVID-19 pneumonia who is see
[2021-09-24] MEDS: INSULIN GLARGINE (*BKC) 100 UNITS/ML 25 UNITS SUB-Q (20:28)
[2021-09-24] MEDS: REMDESIVIR 100 MG/NS 250 ML 100 MG/250 ML BAG 250 MG IVPB (22:16)
[2021-09-24 22:33] LABS: Glucose Point of Care 239 mg/dl (65-105)
[2021-09-25] VITALS (15 sets, daily range): BP systolic 110–128; BP diastolic 62–80; PULSE 65–83; RESP 16–20; TEMP 36.2–36.6; O2SAT 94–97
[2021-09-25] MEDS: ALBUTEROL SULFATE NEB 2.5 MG/0.5 ML INH INHALATION ×4 (02:38→21:17)
[2021-09-25] MEDS: IPRATROPIUM BR 0.02% INH SOLN 0.5 MG/2.5 ML VIAL INHALATION ×4 (02:38→21:17)
[2021-09-25] MEDS: GABAPENTIN 300 MG CAPSULE PO ×3 (06:46→20:28)
[2021-09-25 07:48] LABS: Basophils Percent Auto 0.1 % (0.2-1.2); Eosinophils Absolute Auto 0.1 K/mm3 (0-0.3); Eosinophils Percent Auto 0.7 % (0-4.4); Hematocrit 41.3 % (42.0-52.0); Hemoglobin 14.1 g/dL (14.0-18.0); Immature Granulocyte Percent A 1.2 % (0-0.5); Lymphocytes Absolute Auto 0.91 K/mm3 (0.9-3.2); Lymphocytes Percent Auto 10.7 % (18.3-44.2); Mean Corpuscular HGB Conc 34.1 g/dl (32-36); Mean Corpuscular Volume 87.9 fl (80-100); Mean Platelet Volume 11.1 fl (7.4-10.4); Monocytes Absolute Auto 0.6 K/mm3 (0.1-0.6); Monocytes Percent Auto 6.8 % (2.6-8.5); Neutrophils Absolute Auto 6.9 K/mm3 (1.3-6.7); Neutrophils Percent Auto 80.5 % (45.5-73.1); Platelet Count Result 195 k/mm3 (150-375); Red Cell Distribution Width 12.2 % (11.5-14.5); White Blood Count 8.5 K/mm3 (4.5-10.0)
[2021-09-25 07:50] LABS: Glucose Point of Care 224 mg/dl (65-105)
[2021-09-25 08:00] LABS: Alanine Aminotransferase 22 U/L (4-50); Albumin Level 3.1 g/dL (3.5-5.1); Alkaline Phosphatase 46 U/L (38-126); Anion Gap 5 mmol/L (8-16); Aspartate Amino Transferase 22 U/L (17-59); Bilirubin,Total 0.5 mg/dL (0.2-1.3); Blood Urea Nitrogen 23 mg/dL (9-20); CRP 3.3 mg/dL (<1.0); Calcium 8.8 mg/dL (8.4-10.2); Carbon Dioxide 29 mmol/L (22-30); Chloride 98 mmol/L (98-107); Estimated CRCL calculation 71 ml/min; Estimated Glomerular Filt Rate > 60; Glucose 246 mg/dL (65-110); Lactate Dehydrogenase 556 U/L (313-618); Potassium 4.5 mmol/L (3.4-5.0); Sodium 132 mmol/L (137-145)
[2021-09-25 08:02] LABS: INR 1.1
[2021-09-25] MEDS: INSULIN ASPART (*BKC) 100 UNITS/ML SUB-Q ×3 (08:36→17:26)
[2021-09-25] MEDS: DEXAMETHASONE 2 MG TABLET 6 MG PO (08:37)
[2021-09-25] MEDS: OMEGA 3 POLYUNSAT FATTY ACIDS 1 GM CAP PO ×2 (08:37→17:26)
[2021-09-25] MEDS: guaiFENesin 12 HR 600 MG TABCR PO ×2 (08:37→20:28)
[2021-09-25] MEDS: PANTOPRAZOLE 40 MG TABLET PO (08:37)
[2021-09-25] MEDS: INSULIN ASPART (*BKC) 100 UNITS/ML 8 UNITS SUB-Q (08:37)
[2021-09-25] MEDS: LIDOCAINE 5% PATCH 2 PATCH TRANSDERM (08:38)
[2021-09-25] MEDS: ENOXAPARIN 40 MG/0.4 ML SYRINGE SUB-Q (08:38)
[2021-09-25] MEDS: PSYLLIUM SUGAR FREE POWDER PACKET 1 PACKET PO (08:38)
[2021-09-25] MEDS: DOCUSATE SODIUM 100 MG CAPSULE PO (08:45)
[2021-09-25] MEDS: PREGABALIN (*CRX) 75 MG CAPSULE PO ×2 (08:45→20:27)
--- NOTE | 2021-09-25 09:12 | PM.IMPN ---
Progress Note: A&P Assessment and Plan (1) Acute respiratory failure with hypoxia: Code(s): J96.01 - Acute respiratory failure with hypoxia Status: Acute Assessment and Plan: Secondary to diffuse COVID pneumonia. recently hospitalized for COVID-19 pneumonia who is seen in follow-up again for COVID-19 pneumonia. continues to require supplemental oxygen, required at most 6 L of oxygen per nasal cannula. weaned to 3 L o2 NC today. 09/23 started him on baricitinib doses, this is his 2nd hospital visit/ admission for COVID pneumonia & higher oxygen requirements continue Anti-virals doing regime tested negative for influenza. ferritin/CRP/LDH level improved slightly as noted above checking serial inflammatory markers and mostly trending down. much improved use of the incentive spirometer, now getting 1.5 L Infrequent cough, nonproductive. initially complained of a chest heaviness with breathingwith his COVID infection - no c/o today . CTA of the chest on the which showed no PEs, on the had a chest x-ray which did not show any improvement in his COVID pneumonia. ECHO showed grade 1 diastolic dysfunction with an LVEF of 60-65%, a sigmoid ventricular septum and no pulmonary hypertension. (2) Pneumonia due to COVID-19 virus: Code(s): U07.1 - COVID-19; J12.82 - Pneumonia due to coronavirus disease 2019 Status: Acute Assessment and Plan: COVID positive 09/10/21 Patient admitted 09/10-09/11 but returned 2nd ER visit with admission due to COVID/ O2 required & progressive weakness. Continue dexamethasone and remdesivir and baricitinib. Monitor LFTs. Given duration of symptoms, had Ceftriaxone and Azithromycin 09/20 to 09/25 for concomitant bacterial pneumonia coverage. Continue isolation precautions Supportive care to include bronchodilators, expectorants, incentive spirometry continues to require supplemental oxygen, maxed at 6 L of oxygen per nasal cannula, weaned to 3 L today. chest x-ray was unchanged & inflammatory markers are all improving now tolerating using the incentive spirometer, no cough noted today (3) Type 2 diabetes mellitus: Code(s): E11.9 - Type 2 diabetes mellitus without complications Status: Acute Assessment and Plan: Poorly controlled with a recent A1c of 10.9% Blood sugars elevated especially with IV steroids Continue accuchecks, high dose sliding scale insulin, hypoglycemic protocol Add scheduled novolog 4 units with meals, increased to 10 units with meals Add lantus 23 units qHS., increased to 30 units of Lantus today Metformin on hold given recent IV contrast - restart at prior to discharge. Continue diabetic diet started on Lyrica - tolerating - in addition to Neurontin for neuropathy pain (4) Anxiety: Code(s): F41.9 - Anxiety disorder, unspecified Status: Acute Assessment and Plan: RESOLVED. Feeling feeling better today and has not even required the p.r.n. Ativan Lorazepam 0.5 mg po q6h PRN - needed at times for his anxiety related to his home life. Appreciate care coordination to provide counseling resources to the patient (5) Diabetic peripheral neuropathy: Code(s): E11.42 - Type 2 diabetes mellitus with diabetic polyneuropathy Status: Acute Assessment and Plan: he was taking 4 doses a day of the 300 mg Neurontin at home, but was prescribed 300 mg t.i.d. - WANT to avoid Neurontin toxicity and still wasn't enough anyway for relief per patient. Currently on a 300 mg Neurontin t.i.d. - tolerating well. Added 75 mg of Lyrica daily on 09/23 - tolerating well. No complaints of neuropathy discomfort or pain today. May need to titrate Lyrica to higher dose at discharge if he is tolerating well but still having s/s Subjective Date/time seen: 09/25/21 09:12 Interval history: Date of service: 09/25/2021 Rhett Spann a 65-year-old male with a history of poorly controlled type 2 diabetes mellitus,
[2021-09-25] MEDS: BARICITINIB 2 MG TABLET 4 MG PO (10:16)
--- NOTE | 2021-09-25 10:35 | PCNFU ---
Nutrition Follow-Up Complete: Inadequate oral intake related to COVID 19 as evidenced by reported average intake of 67% and reported decrease appetite Goal: Pt to meet 75% of estimated nutritional needs Pt is progressing towards goal Pt current nutrition is diabetic carb consistent diet and dietary supplements Last recorded weight is 62.6 kg. Bowel Motility: No new BM reported Labs Reviewed: hct 41.3, alb 3.1, Na 132, C-reactive protein 3.3, BUN 23, Glu 224, Ferritin 1370 Meds Noted: olumiant, rocephin, dexamethasone, lovenox, colace, lovaza, gabapentin, mucinex, novlog, ativan, protonix, lyrica, metamucil Skin: left foot diabetic ulcer Additional Notes: Current nutrition is a diabetic carb consistent diet and dietary supplements of Glucerna Shake BID providing an additional 220kcal and 10g of protein to increase caloric intake. Reported intake is 100% x5. Agree with diet orders at this time. Will continue to follow. Will monitor labs, medication, wt, and reported intake every 7 days
[2021-09-25 11:50] LABS: Glucose Point of Care 372 mg/dl (65-105)
[2021-09-25] MEDS: INSULIN ASPART (*BKC) 100 UNITS/ML 10 UNITS SUB-Q ×2 (13:25→17:26)
[2021-09-25 17:15] LABS: Glucose Point of Care 281 mg/dl (65-105)
[2021-09-25] MEDS: REMDESIVIR 100 MG/NS 250 ML 100 MG/250 ML BAG 250 MG IVPB (20:27)
[2021-09-25] MEDS: INSULIN GLARGINE (*BKC) 100 UNITS/ML 30 UNITS SUB-Q (20:28)
[2021-09-25 20:51] LABS: Glucose Point of Care 285 mg/dl (65-105)
[2021-09-26] VITALS (15 sets, daily range): BP systolic 108–119; BP diastolic 62–69; PULSE 66–85; RESP 16–22; TEMP 36.2–36.8; O2SAT 91–99
[2021-09-26] MEDS: ALBUTEROL SULFATE NEB 2.5 MG/0.5 ML INH INHALATION ×3 (02:30→14:51)
[2021-09-26] MEDS: IPRATROPIUM BR 0.02% INH SOLN 0.5 MG/2.5 ML VIAL INHALATION ×3 (02:30→14:51)
[2021-09-26 06:39] LABS: Basophils Percent Auto 0.2 % (0.2-1.2); Eosinophils Absolute Auto 0.1 K/mm3 (0-0.3); Eosinophils Percent Auto 0.7 % (0-4.4); Hematocrit 41.1 % (42.0-52.0); Hemoglobin 14.5 g/dL (14.0-18.0); Immature Granulocyte Absolute 0.07 K/mm3 (0.00-0.031); Immature Granulocyte Percent A 0.8 % (0-0.5); Lymphocytes Absolute Auto 1.16 K/mm3 (0.9-3.2); Lymphocytes Percent Auto 12.7 % (18.3-44.2); Mean Corpuscular HGB Conc 35.3 g/dl (32-36); Mean Corpuscular Hemoglobin 30.1 pg (26-34); Mean Corpuscular Volume 85.3 fl (80-100); Mean Platelet Volume 11.3 fl (7.4-10.4); Monocytes Absolute Auto 0.6 K/mm3 (0.1-0.6); Monocytes Percent Auto 6.7 % (2.6-8.5); Neutrophils Absolute Auto 7.2 K/mm3 (1.3-6.7); Neutrophils Percent Auto 78.9 % (45.5-73.1); Platelet Count Result 197 k/mm3 (150-375); Red Blood Count 4.82 M/mm3 (4.6-6.20); Red Cell Distribution Width 12.1 % (11.5-14.5); White Blood Count 9.1 K/mm3 (4.5-10.0)
[2021-09-26] MEDS: GABAPENTIN 300 MG CAPSULE PO ×3 (06:46→17:43)
[2021-09-26 06:48] LABS: INR 1.1; Prothrombin Time 13.9 Seconds (11.1-14.7)
[2021-09-26 06:52] LABS: Alanine Aminotransferase 28 U/L (4-50); Albumin Level 3.2 g/dL (3.5-5.1); Alkaline Phosphatase 47 U/L (38-126); Anion Gap 9 mmol/L (8-16); Aspartate Amino Transferase 23 U/L (17-59); Bilirubin,Total 0.4 mg/dL (0.2-1.3); Blood Urea Nitrogen 25 mg/dL (9-20); CRP 2.3 mg/dL (<1.0); Carbon Dioxide 27 mmol/L (22-30); Chloride 97 mmol/L (98-107); Estimated CRCL calculation 67 ml/min; Estimated Glomerular Filt Rate > 60; Glucose 264 mg/dL (65-110); Lactate Dehydrogenase 511 U/L (313-618); Potassium 4.8 mmol/L (3.4-5.0); Sodium 133 mmol/L (137-145)
[2021-09-26 07:38] LABS: Glucose Point of Care 236 mg/dl (65-105)
[2021-09-26] MEDS: INSULIN ASPART (*BKC) 100 UNITS/ML 10 UNITS SUB-Q ×3 (08:49→17:44)
[2021-09-26] MEDS: INSULIN ASPART (*BKC) 100 UNITS/ML SUB-Q ×3 (08:49→17:44)
[2021-09-26] MEDS: OMEGA 3 POLYUNSAT FATTY ACIDS 1 GM CAP PO ×2 (08:50→17:44)
[2021-09-26] MEDS: ENOXAPARIN 40 MG/0.4 ML SYRINGE SUB-Q (08:50)
[2021-09-26] MEDS: DEXAMETHASONE 2 MG TABLET 6 MG PO (08:50)
[2021-09-26] MEDS: LIDOCAINE 5% PATCH 2 PATCH TRANSDERM (08:50)
[2021-09-26] MEDS: guaiFENesin 12 HR 600 MG TABCR PO ×2 (08:51→20:30)
[2021-09-26] MEDS: PSYLLIUM SUGAR FREE POWDER PACKET 1 PACKET PO (08:51)
[2021-09-26] MEDS: PANTOPRAZOLE 40 MG TABLET PO (08:51)
[2021-09-26] MEDS: PREGABALIN (*CRX) 75 MG CAPSULE PO (08:53)
[2021-09-26 11:55] LABS: Glucose Point of Care 269 mg/dl (65-105)
[2021-09-26] MEDS: BARICITINIB 2 MG TABLET 4 MG PO (12:14)
--- NOTE | 2021-09-26 15:10 | PM.IMPN ---
Progress Note: A&P Assessment and Plan (1) Acute respiratory failure with hypoxia: Code(s): J96.01 - Acute respiratory failure with hypoxia Status: Acute Assessment and Plan: Secondary to diffuse COVID pneumonia. recently hospitalized for COVID-19 pneumonia who is seen in follow-up again for COVID-19 pneumonia. continues to require supplemental oxygen, required at most 6 L of oxygen per nasal cannula, weaned to 2L as of 09/26 09/20-09/29 Dexamethasone 09/23 started Baricitinib CTA of the chest 09/19 which showed no PE ECHO showed grade 1 diastolic dysfunction with an LVEF of 60-65%, a sigmoid ventricular septum and no pulmonary hypertension CLINICALLY IMPROVING (2) Pneumonia due to COVID-19 virus: Code(s): U07.1 - COVID-19; J12.82 - Pneumonia due to coronavirus disease 2018 Status: Acute Assessment and Plan: COVID positive 09/10/21 (3) Type 2 diabetes mellitus: Code(s): E11.9 - Type 2 diabetes mellitus without complications Status: Acute Assessment and Plan: Recent A1c 10.9% 09/26 Resume metformin as BS 260s-280's (4) Anxiety: Code(s): F41.9 - Anxiety disorder, unspecified Status: Acute Assessment and Plan: RESOLVED (5) Diabetic peripheral neuropathy: Code(s): E11.42 - Type 2 diabetes mellitus with diabetic polyneuropathy Status: Acute Assessment and Plan: Inadequately controlled on gabapentin 300 mg t.i.d. 09/26 increase gabapentin to 300 mg q.i.d. and add capsaicin cream q.i.d. (stopped lidocaine and pregabalin) Subjective Date/time seen: 09/26/21 15:10 Interval history: 09/26 visit. Fatigue and RAMIREZ. Mild cough. Complains of burning in his feet. Hungry. Feels he is not getting enough food. Denied loss of taste or smell. Denied GI or changes. Denied abnormal bleeding. Review of Systems Review of Systems: All systems reviewed & are unremarkable except as noted in HPI and below Exam Narrative: HEENT: PERRL, sclerae nonicteric, pharyngeal mucosa pink and intact NECK: No JVD, adenopathy, or thyromegaly CHEST: Clear to auscultation. Normal effort. HEART: NL S1/S2, regular, no murmur ABDOMEN: BS+, soft, nontender, no mass, no bruits EXTREMITIES: No cyanosis, edema, or clubbing NEUROLOGIC: CN intact and symmetric to inspection. MUSCULOSKELETAL: Tone and strength symmetric. PSYCH: Alert. Oriented to person, place, and time. Objective Data Vital Signs Vital Signs: Vital Signs - 24 hr 09/25/21 16:00 09/25/21 20:00 09/25/21 21:19 Temperature 97.1 F L 98 F Pulse Rate 81 71 73 Respiratory Rate 18 18 18 Blood Pressure 124/80 117/68 Pulse Oximetry 94 94 09/25/21 21:26 09/25/21 21:27 09/26/21 00:00 Temperature 97.2 F L Pulse Rate 71 70 Respiratory Rate 18 18 Blood Pressure 108/62 Pulse Oximetry 94 98 09/26/21 02:30 09/26/21 02:41 09/26/21 04:00 Temperature 97.9 F Pulse Rate 68 66 67 Respiratory Rate 18 18 18 Blood Pressure 119/69 Pulse Oximetry 98 09/26/21 08:00 09/26/21 09:28 09/26/21 09:41 Temperature 98.2 F Pulse Rate 69 72 Respiratory Rate 18 18 Blood Pressure 112/66 Pulse Oximetry 91 95 09/26/21 09:46 Temperature Pulse Rate 69 Respiratory Rate 18 Blood Pressure Pulse Oximetry Intake/Output Intake/Output: Intake & Output 09/23/21 09/24/21 09/25/21 09/26/21 23:59 23:59 23:59 23:59 Intake Total 3330 2490 2780 700 Output Total 2390 2350 3525 1000 Balance 940 689 -327 -300 Meds/Results Medications: Active Medications Generic Name Dose Route Start Last Admin Trade Name Freq PRN Reason Stop Dose Admin Acetaminophen 650 mg 09/20/21 11:12 09/20/21 11:55 Acetaminophen 325 Mg Tablet PO 650 mg Q4H PRN Administration Mild Pain (1-3) or Fever Albuterol 2.5 mg 09/20/21 09:23 09/21/21 12:41 Albuterol Sulfate Neb 2.5 Mg/0.5 Ml Inh INHALATION 2.5 mg Q6HRT PRN Administration Shortness Of Breath Baricitinib 4 m
[2021-09-26 17:20] LABS: Glucose Point of Care 240 mg/dl (65-105)
[2021-09-26] MEDS: CAPSAICIN 0.025% CREAM 60 GM TUBE 1 APPLIC TOPICAL (17:43)
[2021-09-26] MEDS: metFORMIN HCL 500 MG TABLET 1000 MG PO (17:44)
[2021-09-26] MEDS: INSULIN GLARGINE (*BKC) 100 UNITS/ML 30 UNITS SUB-Q (20:17)
[2021-09-26] MEDS: REMDESIVIR 100 MG/NS 250 ML 100 MG/250 ML BAG 250 MG IVPB (20:30)
[2021-09-26 20:53] LABS: Glucose Point of Care 330 mg/dl (65-105)
--- NOTE | 2021-09-26 21:08 | PC.NURSE ---
[facility]ritory reported emptying 850cc out of pt urinal at this time
[2021-09-27] MEDS: GABAPENTIN 300 MG CAPSULE PO ×4 (00:08→17:02)
[2021-09-27] MEDS: CAPSAICIN 0.025% CREAM 60 GM TUBE 1 APPLIC TOPICAL ×4 (00:08→17:03)
[2021-09-27 05:49] VITALS: BP 122/61; PULSE 65; RESP 16; TEMP 36.4; O2SAT 97
[2021-09-27 06:03] LABS: Basophils Percent Auto 0.1 % (0.2-1.2); Eosinophils Percent Auto 0.5 % (0-4.4); Hematocrit 42.6 % (42.0-52.0); Hemoglobin 14.6 g/dL (14.0-18.0); Immature Granulocyte Percent A 1.1 % (0-0.5); Lymphocytes Percent Auto 13.8 % (18.3-44.2); Mean Corpuscular HGB Conc 34.3 g/dl (32-36); Mean Corpuscular Hemoglobin 30.1 pg (26-34); Mean Corpuscular Volume 87.8 fl (80-100); Monocytes Absolute Auto 0.7 K/mm3 (0.1-0.6); Monocytes Percent Auto 7.7 % (2.6-8.5); Neutrophils Absolute Auto 6.7 K/mm3 (1.3-6.7); Neutrophils Percent Auto 76.8 % (45.5-73.1); Platelet Count Result 175 k/mm3 (150-375); Red Blood Count 4.85 M/mm3 (4.6-6.20); Red Cell Distribution Width 12.4 % (11.5-14.5); White Blood Count 8.7 K/mm3 (4.5-10.0)
[2021-09-27 06:11] LABS: INR 1.1; Prothrombin Time 13.9 Seconds (11.1-14.7)
[2021-09-27 06:24] LABS: Alanine Aminotransferase 32 U/L (4-50); Albumin Level 3.3 g/dL (3.5-5.1); Alkaline Phosphatase 46 U/L (38-126); Anion Gap 8 mmol/L (8-16); Aspartate Amino Transferase 26 U/L (17-59); Bilirubin,Total 0.4 mg/dL (0.2-1.3); Blood Urea Nitrogen 24 mg/dL (9-20); CRP 1.8 mg/dL (<1.0); Calcium 8.9 mg/dL (8.4-10.2); Carbon Dioxide 30 mmol/L (22-30); Chloride 96 mmol/L (98-107); Estimated CRCL calculation 83 ml/min; Estimated Glomerular Filt Rate > 60; Glucose 164 mg/dL (65-110); Lactate Dehydrogenase 513 U/L (313-618); Potassium 4.2 mmol/L (3.4-5.0); Sodium 134 mmol/L (137-145)
[2021-09-27 07:51] LABS: Glucose Point of Care 153 mg/dl (65-105)
[2021-09-27 08:00] VITALS: BP 126/79; PULSE 66; RESP 20; TEMP 36.7; O2SAT 97
[2021-09-27] MEDS: PSYLLIUM SUGAR FREE POWDER PACKET 1 PACKET PO (08:18)
[2021-09-27] MEDS: ENOXAPARIN 40 MG/0.4 ML SYRINGE SUB-Q (08:19)
[2021-09-27] MEDS: OMEGA 3 POLYUNSAT FATTY ACIDS 1 GM CAP PO ×2 (08:19→17:02)
[2021-09-27] MEDS: DEXAMETHASONE 2 MG TABLET 6 MG PO (08:19)
[2021-09-27] MEDS: PANTOPRAZOLE 40 MG TABLET PO (08:20)
[2021-09-27] MEDS: metFORMIN HCL 500 MG TABLET 1000 MG PO ×2 (08:20→17:01)
[2021-09-27] MEDS: guaiFENesin 12 HR 600 MG TABCR PO ×2 (08:57→20:53)
--- NOTE | 2021-09-27 10:21 | PM.IMPN ---
Progress Note: A&P Assessment and Plan (1) Acute respiratory failure with hypoxia: Code(s): J96.01 - Acute respiratory failure with hypoxia Status: Acute Assessment and Plan: Secondary to diffuse COVID pneumonia. recently hospitalized for COVID-19 pneumonia who is seen in follow-up again for COVID-19 pneumonia. continues to require supplemental oxygen, required at most 6 L of oxygen per nasal cannula, weaned to 2L as of 09/26 09/20-09/29 Dexamethasone 09/23 started Baricitinib CTA of the chest 09/19 which showed no PE ECHO showed grade 1 diastolic dysfunction with an LVEF of 60-65%, a sigmoid ventricular septum and no pulmonary hypertension CLINICALLY IMPROVING (2) Pneumonia due to COVID-19 virus: Code(s): U07.1 - COVID-19; J12.82 - Pneumonia due to coronavirus disease 2018 Status: Acute Assessment and Plan: COVID positive 09/10/21 (3) Type 2 diabetes mellitus: Code(s): E11.9 - Type 2 diabetes mellitus without complications Status: Acute Assessment and Plan: Recent A1c 10.9% 09/26 Resumed metformin as BS 260s-280's 09/27 FBS 150s, premeal Novolog d/c'd, SSI continued (4) Anxiety: Code(s): F41.9 - Anxiety disorder, unspecified Status: Acute Assessment and Plan: RESOLVED (5) Diabetic peripheral neuropathy: Code(s): E11.42 - Type 2 diabetes mellitus with diabetic polyneuropathy Status: Acute Assessment and Plan: Inadequately controlled on gabapentin 300 mg t.i.d. 09/26 increased gabapentin to 300 mg q.i.d. and added capsaicin cream q.i.d. (stopped lidocaine and pregabalin) Subjective Date/time seen: 09/27/21 10:21 Interval history: 09/27 visit. Fatigue and RAMIREZ. Mild cough. Complains of burning in his feet. Hungry. Feels he is not getting enough food. 09/26 issues: Capsaicin was applied only once but seemed to help. He did not get his snacks as requested. Denied loss of taste or smell. Denied GI or changes. Denied abnormal bleeding. Review of Systems Review of Systems: All systems reviewed & are unremarkable except as noted in HPI and below Exam Narrative: HEENT: PERRL, sclerae nonicteric, pharyngeal mucosa pink and intact NECK: No JVD, adenopathy, or thyromegaly CHEST: Clear to auscultation. Normal effort. HEART: NL S1/S2, regular, no murmur ABDOMEN: BS+, soft, nontender, no mass, no bruits EXTREMITIES: No cyanosis, edema, or clubbing NEUROLOGIC: CN intact and symmetric to inspection. MUSCULOSKELETAL: Tone and strength symmetric. PSYCH: Alert. Oriented to person, place, and time. Objective Data Vital Signs Vital Signs: Vital Signs - 24 hr 09/26/21 12:00 09/26/21 14:50 09/26/21 15:00 Temperature 97.6 F Pulse Rate 85 74 76 Respiratory Rate 18 20 22 H Blood Pressure 110/63 Pulse Oximetry 95 09/26/21 16:00 09/26/21 20:00 09/26/21 21:00 Temperature 97.3 F L Pulse Rate 75 75 Respiratory Rate 20 20 Blood Pressure 115/64 Pulse Oximetry 99 99 95 09/26/21 21:44 09/27/21 05:49 09/27/21 08:00 Temperature 97.3 F L 97.6 F 98.0 F Pulse Rate 67 65 66 Respiratory Rate 16 16 20 Blood Pressure 112/63 122/61 126/79 Pulse Oximetry 98 97 97 Intake/Output Intake/Output: Intake & Output 09/24/21 09/25/21 09/26/21 09/27/21 23:59 23:59 23:59 23:59 Intake Total 2490 3030 1440 1110 Output Total 2350 3525 2850 1300 Balance 140 495 -1410 -190 Meds/Results Medications: Active Medications Generic Name Dose Route Start Last Admin Trade Name Freq PRN Reason Stop Dose Admin Acetaminophen 650 mg 09/20/21 11:12 09/20/21 11:55 Acetaminophen 325 Mg Tablet PO 650 mg Q4H PRN Administration Mild Pain (1-3) or Fever Albuterol 2.5 mg 09/20/21 09:23 09/21/21 12:41 Albuterol Sulfate Neb 2.5 Mg/0.5 Ml Inh INHALATION 2.5 mg Q6HRT PRN Administration Shortness Of Breath Baricitinib 4 mg 09/22/21 11:00 09/26/21 12:14 Baricitinib 2 Mg Tablet PO 10/05/21 11:0
[2021-09-27] MEDS: polyethylene glycoL 3350 17 GM POWD.PACK PO (11:42)
[2021-09-27] MEDS: BARICITINIB 2 MG TABLET 4 MG PO (11:43)
[2021-09-27] MEDS: INSULIN ASPART (*BKC) 100 UNITS/ML SUB-Q ×2 (11:48→17:01)
[2021-09-27 11:50] LABS: Glucose Point of Care 276 mg/dl (65-105)
[2021-09-27 12:00] VITALS: BP 121/70; PULSE 79; RESP 20; TEMP 36.6; O2SAT 94
[2021-09-27 16:00] VITALS: BP 120/63; PULSE 92; RESP 20; TEMP 36.4; O2SAT 94
[2021-09-27 16:26] LABS: Glucose Point of Care 287 mg/dl (65-105)
[2021-09-27 19:31] VITALS: PULSE 92; RESP 20; O2SAT 94
[2021-09-27 20:00] VITALS: BP 126/70; PULSE 78; RESP 18; TEMP 36.2; O2SAT 97
[2021-09-27] MEDS: REMDESIVIR 100 MG/NS 250 ML 100 MG/250 ML BAG 250 MG IVPB (20:52)
[2021-09-27] MEDS: SENNOSIDES 8.6 MG TABLET 17.2 MG PO (20:53)
[2021-09-27 21:10] LABS: Glucose Point of Care 368 mg/dl (65-105)
[2021-09-28] VITALS (8 sets, daily range): BP systolic 118–139; BP diastolic 62–78; PULSE 72–92; RESP 20; TEMP 36.2–36.5; O2SAT 90–98
[2021-09-28] MEDS: GABAPENTIN 300 MG CAPSULE PO ×3 (00:25→11:43)
[2021-09-28] MEDS: CAPSAICIN 0.025% CREAM 60 GM TUBE 1 APPLIC TOPICAL ×3 (00:25→11:43)
[2021-09-28] MEDS: INSULIN GLARGINE (*BKC) 100 UNITS/ML 30 UNITS SUB-Q (06:48)
[2021-09-28 07:28] LABS: Basophils Percent Auto 0.1 % (0.2-1.2); Eosinophils Percent Auto 0.4 % (0-4.4); Hematocrit 39.4 % (42.0-52.0); Hemoglobin 13.7 g/dL (14.0-18.0); Immature Granulocyte Absolute 0.09 K/mm3 (0.00-0.031); Immature Granulocyte Percent A 1.1 % (0-0.5); Lymphocytes Absolute Auto 1.29 K/mm3 (0.9-3.2); Lymphocytes Percent Auto 15.7 % (18.3-44.2); Mean Corpuscular HGB Conc 34.8 g/dl (32-36); Mean Corpuscular Hemoglobin 30.4 pg (26-34); Mean Corpuscular Volume 87.4 fl (80-100); Mean Platelet Volume 11.7 fl (7.4-10.4); Monocytes Absolute Auto 0.7 K/mm3 (0.1-0.6); Monocytes Percent Auto 8.9 % (2.6-8.5); Neutrophils Absolute Auto 6.1 K/mm3 (1.3-6.7); Neutrophils Percent Auto 73.8 % (45.5-73.1); Platelet Count Result 159 k/mm3 (150-375); Red Blood Count 4.51 M/mm3 (4.6-6.20); Red Cell Distribution Width 12.2 % (11.5-14.5); White Blood Count 8.2 K/mm3 (4.5-10.0)
[2021-09-28 07:39] LABS: INR 1.1; Prothrombin Time 13.4 Seconds (11.1-14.7)
[2021-09-28 07:41] LABS: Alanine Aminotransferase 33 U/L (4-50); Albumin Level 2.9 g/dL (3.5-5.1); Alkaline Phosphatase 49 U/L (38-126); Anion Gap 4 mmol/L (8-16); Aspartate Amino Transferase 27 U/L (17-59); Bilirubin,Total 0.3 mg/dL (0.2-1.3); Blood Urea Nitrogen 25 mg/dL (9-20); Calcium 8.4 mg/dL (8.4-10.2); Carbon Dioxide 32 mmol/L (22-30); Chloride 98 mmol/L (98-107); Estimated CRCL calculation 74 ml/min; Estimated Glomerular Filt Rate > 60; Glucose 274 mg/dL (65-110); Potassium 4.4 mmol/L (3.4-5.0); Sodium 134 mmol/L (137-145)
[2021-09-28 07:53] LABS: Glucose Point of Care 229 mg/dl (65-105)
[2021-09-28] MEDS: DEXAMETHASONE 2 MG TABLET 6 MG PO (09:04)
[2021-09-28] MEDS: OMEGA 3 POLYUNSAT FATTY ACIDS 1 GM CAP PO (09:04)
[2021-09-28] MEDS: metFORMIN HCL 500 MG TABLET 1000 MG PO (09:04)
[2021-09-28] MEDS: INSULIN ASPART (*BKC) 100 UNITS/ML SUB-Q ×2 (09:04→11:44)
[2021-09-28] MEDS: PANTOPRAZOLE 40 MG TABLET PO (09:04)
[2021-09-28] MEDS: guaiFENesin 12 HR 600 MG TABCR PO (09:04)
[2021-09-28] MEDS: polyethylene glycoL 3350 17 GM POWD.PACK PO (09:05)
[2021-09-28] MEDS: ENOXAPARIN 40 MG/0.4 ML SYRINGE SUB-Q (09:05)
[2021-09-28 11:23] LABS: Glucose Point of Care 237 mg/dl (65-105)
[2021-09-28] MEDS: BARICITINIB 2 MG TABLET 4 MG PO (11:43)
--- NOTE | 2021-09-28 14:52 | PM.DS ---
DS: Admitting Diagnosis Discharge Date 09/28/2021 Admitting Diagnosis Chief Complaint: Weakness. DS: Discharge Diagnosis Discharge Diagnosis (1) Acute respiratory failure with hypoxia: Code(s): J96.01 - Acute respiratory failure with hypoxia Status: Acute Assessment and Plan: Secondary to diffuse COVID pneumonia. recently hospitalized for COVID-19 pneumonia who is seen in follow-up again for COVID-19 pneumonia. continues to require supplemental oxygen, required at most 6 L of oxygen per nasal cannula, weaned to 2L as of 09/26 09/20-09/29 Dexamethasone 09/23 started Baricitinib CTA of the chest 09/19 which showed no PE ECHO showed grade 1 diastolic dysfunction with an LVEF of 60-65%, a sigmoid ventricular septum and no pulmonary hypertension CLINICALLY IMPROVING (2) Pneumonia due to COVID-19 virus: Code(s): U07.1 - COVID-19; J12.82 - Pneumonia due to coronavirus disease 2018 Status: Acute Assessment and Plan: COVID positive 09/10/21 (3) Type 2 diabetes mellitus: Code(s): E11.9 - Type 2 diabetes mellitus without complications Status: Acute Assessment and Plan: Recent A1c 10.9% 09/26 Resumed metformin as BS 260s-280's 09/27 FBS 150s, premeal Novolog d/c'd, SSI continued (4) Anxiety: Code(s): F41.9 - Anxiety disorder, unspecified Status: Acute Assessment and Plan: RESOLVED (5) Diabetic peripheral neuropathy: Code(s): E11.42 - Type 2 diabetes mellitus with diabetic polyneuropathy Status: Acute Assessment and Plan: Inadequately controlled on gabapentin 300 mg t.i.d. 09/26 increased gabapentin to 300 mg q.i.d. and added capsaicin cream q.i.d. (stopped lidocaine and pregabalin) DS: Summary Hospital Course Reason for hospitalization: Chief Complaint: Weakness. Narrative: This is a 65-year-old male with type 2 diabetes mellitus who presented to the emergency department via EMS from home for evaluation of weakness. He was noticed with COVID-19 on 09/10/2021 and in fact he was admitted to this hospital overnight on that day. He had no oxygen requirement and he was discharged the following day with a prescription for dexamethasone 6 mg daily for 10 days. He did not take those, however. Unfortunately he has not felt any better since that time and in fact he feels worse. He has not been able to do much due to ongoing fatigue and weakness, and that includes taking his medication. His appetite has been poor and he feels dehydrated. This morning he was feeling short of breath and lightheaded and decided to come in for evaluation. Since arrival to the emergency department he has developed an oxygen requirement and he is now on 2 L nasal cannula with an SPO2 in the mid 90s. Chest CTA showed no obvious pulmonary emboli though evaluation was limited in the segmental arteries as well as diffuse COVID pneumonia. He is being admitted in this setting. He denies fever, chills, sweats, chest pain, pleuritic pain, nausea, vomiting, and diarrhea. Hospital Course: Secondary to diffuse COVID pneumonia. recently hospitalized for COVID-19 pneumonia who is seen in follow-up again for COVID-19 pneumonia. continues to require supplemental oxygen, required at most 6 L of oxygen per nasal cannula, weaned to 2L as of 09/26 09/20-09/29 Dexamethasone 09/23 started Baricitinib CTA of the chest 09/19 which showed no PE ECHO showed grade 1 diastolic dysfunction with an LVEF of 60-65%, a sigmoid ventricular septum and no pulmonary hypertension CLINICALLY IMPROVING today patient clinically stable is no new complaint will discharge the patient today Status at Discharge Functional status at discharge: independent ambulation Overall status at discharge: patient is back to baseline Time Spent with Patient Time attestation: Total time spent providing and/or coordinating discharge services: Patient was seen and examined at the time of the discharge Condition at discharge is stable Code status: Fu
--- NOTE | 2021-09-28 16:04 | PCRCNOTE ---
HOME EVALUATION COMPLETED. PATIENT DOES NOT REQUIRE HOME OXYGEN. RN INFORMED.
== END 2021-09-28 15:45 | disposition home or self-care (01) | DRG 177 ==
LOC: ANHED 17:18 → ANH3MEDSUR 17:56
PROVIDERS: Emergency Medicine; Internal Medicine; Internal Medicine Pulmonary Disease; Physician Assistant; Admitting Provider Internal Medicine; Emergency Provider Emergency Medicine; PCP Family Medicine Adolescent Medicine; Visit Provider Nurse Practitioner
DX: U07.1 COVID-19 (principal); J12.82 Pneumonia due to coronavirus disease 2019; J96.01 Acute respiratory failure with hypoxia; F41.9 Anxiety disorder, unspecified; E11.42 Type 2 diabetes mellitus with diabetic polyneuropathy; I73.9 Peripheral vascular disease, unspecified; I10 Essential (primary) hypertension; E86.0 Dehydration
CPT/HCPCS: 36415; 36600; 71045; 71275; 80053; 82375; 82565; 82728; 82805; 82948; 83036; 83050; 83615; 83735; 83880; 84460; 85025; 85027; 85610; 86140; 87804; 93005; 93306; 94618; 94640; 96374; 97110; 97116; 97162; 97165; 97530; 97535; 99285; A9270; G0378; J0456; J0696; J1650; J1815; J2930; J7030; J8540; Q9967

== ENCOUNTER 2022-05-28 13:50 | Inpatient (IN) | payer MEDICARE, MEDICAID, SELFPAY ==
--- NOTE | ~2022-05-28 | MR_ITS ---
EXAMINATION: MR foot LT wo/w con DATE: 05/28/2022 17:08 INDICATION: Left foot diabetic ulcer TECHNIQUE: Magnetic resonance imaging (MRI) of the left fore/mid foot was performed without and with 20 mL Multihance intravenous contrast. Sequences included axial, sagittal and coronal T1-weighted FSE , axial and coronal T2-weighted FS FSE, sagittal fluid sensitive FSE STIR, axial T1-weighted FS FSE, and postcontrast axial, sagittal and coronal T1-weighted FS FSE. COMPARISON: Left foot radiographs dated 05/18/2022 and left foot MR dated 05/08/2020 FINDINGS: There is been prior amputation of the left fourth toe with likely prior resection of the head of the fourth metatarsal. There is osteolysis involving the remaining distal diaphysis of the fourth metatar mei with enhancing tissue replacing the normal T1 hyperintense fat in the more proximal diaphysis. Fi ndings are consistent with osteomyelitis. Additional edema and enhancement at the base of the fourth metatarsal where the fat signal is relatively preserved which could be either reactive or related to relatively early osteomyelitis. There is edema surrounding a likely sinus tract extending dorsally fr om the skin plantar to the distal osteotomy margin of the fourth metatarsal and contiguous with a mul tiloculated peripherally enhancing abscess in the soft tissues dorsal to the osteotomy margin which m easures 3.0 cm proximal to distal, 2.8 cm dorsal plantar and up to 1.3 cm medial to lateral width. Th ere appears be a separate draining sinus tract extending through the skin dorsal to the abscess. Ther e are a few additional small peripherally enhancing fluid collections clustered in the soft tissues d orsal to the base of the fifth metatarsal, the largest measuring 11 x 3 x 5 mm . There is mild edema in the underlying base of the fifth metatarsal without evident cortical erosion or loss of T1 fat sig nal to more specifically suggest osteomyelitis. Otherwise normal marrow signal throughout the forefoo t and visualized portions of the midfoot. No fractures. Mild osteoarthritis at the first metatarsopha langeal and few of the tarsal metatarsal interphalangeal joints. Prominent nonspecific feathery muscular edema throughout the intrinsic musculature of the foot. IMPRESSION: 1. Status post amputation of the fourth toe with likely resection of the head of the fourth metatarsa l. There is osteomyelitis extending proximally to at least the proximal diaphysis of the fourth metat arsal. 2. 3.0 x 2.8 x 1.3 cm associated abscess at the level of the distal osteotomy margin which appears to extend to the skin surface both plantar and dorsally. 3. Cluster of a few additional tiny peripherally enhancing fluid collections also potentially represe nting abscesses in the soft tissues dorsal to the base of the fifth metatarsal. There is mild marrow edema at the base of the fifth metatarsal without evident cortical erosion or loss of T1 fat signal t o more specifically suggest osteomyelitis in this remains equivocal for reactive edema versus early o steomyelitis. Reviewed, dictated and finalized at location B. IMPRESSION: 1. Status post amputation of the fourth toe with likely resection of the head o f the fourth metatarsal. There is osteomyelitis extending proximally to at leas t the proximal diaphysis of the fourth metatarsal. 2. 3.0 x 2.8 x 1.3 cm associated abscess at the level of the distal osteotomy m argin which appears to extend to the skin surface both plantar and dorsally. 3. Cluster of a few additional tiny peripherally enhancing fluid collections al so potentially representing abscesses in the soft tissues dorsal to the base of the fifth metatarsal. There is mild marrow edema at the base of the fifth meta tarsal without evident cortical
--- NOTE | ~2022-05-28 | XR_ITS ---
EXAMINATION: XR chest PICC line Exam Date/Time: 05/30/2022 15:10 CDT HISTORY: PICC PLACEMENT Comparison: None available. RESULT: Lines, tubes, and devices: Initial image demonstrates a right upper extremity rPICC terminating in th e right atrium, with incremental retraction until the tip is near the cavoatrial junction. Lungs and pleura: Low lung volumes.Hazy right upper and lower as well as left lower lung opacities o verlying coarse interstitial changes, with streaky and linear bibasilar opacities. Cardiomediastinal silhouette: Stable. Other: No acute osseous or upper abdominal finding. IMPRESSION: Right upper extremity PICC, terminating near the cavoatrial junction. Bilateral atelectasis/consolida tion, overlying chronic interstitial change. Reviewed, dictated and finalized at location K. IMPRESSION: Right upper extremity PICC, terminating near the cavoatrial junction. Bilateral atelectasis/consolidation, overlying chronic interstitial change.
--- NOTE | 2022-05-28 12:14 | ADMGEN ---
This patient, Rhett Spann, was admitted to [facility] Surg Room 311-01 at 1214. Patient/family oriented to hospital policies and general routines including ID bracelet, bed and alarms, visiting hours, pain management, procedures, bathroom and other care routines, personal items, smoking policy, room service/diet, and visiting hours. Information on how to activate the Rapid Response Team has been discussed. Patient/Family are encouraged to report perceived risks to care and to ask questions if they do not understand what they are told or what they should do.
--- NOTE | 2022-05-28 13:59 | PM.IMHP ---
H&P: HPI History of Present Illness Date/Time: 05/28/22 13:59 Chief Complaint: Left foot bone Narrative: This is a 66-year-old male patient who has had a chronic diabetic foot ulcer to the left foot. He has had a history of having a surgical amputation to the 4th toe on the left foot. The patient has been going to wound care clinic for treatment. The patient stated that it was doing well until this past Tuesday he noticed that there was a blister and it popped open there is a hole noted on the top of the forefoot and on the bottom near the plantar surface. The patient stated that it developed some redness around the area the redness is all the way up to about 2 in before his ankle and it has been draining as serous sanguinous drainage with a malodorous smell. The patient was seeing Dr. Cotton today in his office and his doctor sent him here as a direct admit. The patient has had peptostreptococcus species and group B Streptococcus in the past. He has also had prevotella bivia in that left foot. The patient denies any fever chills. The patient is being admitted to observation status for diabetic foot cellulitis. Date of service 05/28/2022. Review of Systems Review of Systems: See HPI All systems reviewed & are unremarkable except as noted in HPI and below Constitutional: Constitutional: Reports as per HPI and Reports no additional constitutional complaints Eyes: Eyes: Reports as per HPI and Reports no additional eye complaints ENT: Reports system reviewed and no additional complaints, except as documented and Reports Normal hearing present Cardiovascular: Cardiovascular: Reports no additional cardiovascular complaints Respiratory: Respiratory: Reports no additional respiratory complaints and Reports no additional respiratory complaints Gastrointestinal: Gastrointestinal: Reports as per HPI and Reports no additional gastrointestinal complaints Musculoskeletal: Musculoskeletal: Reports no additional musculoskeletal complaints Integumentary/Breasts: Skin/Breast: Reports system reviewed and no additional complaints, except as docu and Reports as per HPI Neurologic: Reports system reviewed and no additional complaints, except as documented, Reports as per HPI and Reports Normal hearing present Psychiatric: Psychiatric: Reports no additional psychiatric complaints and Reports as per HPI Endocrine: Endocrine: Reports no additional endocrine complaints Hematologic/Lymphatic: Hematologic/Lymphatic: Reports no additional hematologic/lymphatic complaints Allergic/Immunologic: Allergic/Immunologic: Reports no additional allergic/immunologic complaints [facility] Past Medical History Medical History (Updated 05/28/22 @ 15:51 by Selina Watts NP) Chronic constipation Diabetic foot ulcer associated with diabetes mellitus due to underlying condition Diabetic peripheral neuropathy Hypertension Impotence Necrotizing fasciitis of ankle and foot Osteomyelitis of foot, left, acute Overweight (BMI 25.0-29.9) Peripheral artery disease Type 2 diabetes mellitus Ulcer of left foot due to type 2 diabetes mellitus Uncontrolled diabetes mellitus Surgical History Surgical History (Updated 05/28/22 @ 15:45 by Selina Watts NP) H/O foot surgery 4th toe on the left removed History of arthroscopy of right knee Status post surgical removal of nail matrix of toe Family History Family History Father , age 62 Myocardial infarct Lung disease Mother , age 73 Lung disease Sibling , age 67 Lung disease Social History Social History (Updated 05/28/22 @ 15:46 by Selina Watts NP) Social History: The patient lives in his own home in [place] with his cats. He is retired. Lifelong non-smoker. No current alcohol use but he reports drinking heavier in the past. No illicit substance use. The patient is . He has no biological children.
--- NOTE | 2022-05-28 14:00 | PCWOUND ---
CWON NOTE Patient was seen in the wound center earlier this morning with Dr. Cotton and Jaylin Miner [employer] SE[employer] TECHNICIAN. Orders placed for left foot wounds.
--- NOTE | 2022-05-28 14:21 | PM.CNOR ---
Assessment and Plan Assessment and plan (1) Ulcer of left foot due to type 2 diabetes mellitus: Code(s): E11.621 - Type 2 diabetes mellitus with foot ulcer; L97.529 - Non-pressure chronic ulcer of other part of left foot with unspecified severity Status: Acute Assessment and Plan: persistent left plantar foot ulcer. Recent radiographs concerning for changes of the remaining distal 4th metatarsal concerning for osteomyelitis. New onset cellulitis on the dorsum and lateral aspect of the foot. Agree with admission for laboratory workup and IV antibiotics. Wound care to the left foot. 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 Risks and benefits of each as well as alternatives were reviewed. All of the patient's questions were answered. The risks of surgery reviewed including but not limited to: Neurovascular damage, wound complication, infection, blood clot, pulmonary embolus, stroke, myocardial infarction, and anesthetic risks up to and including . Continued pain and possible dysfunction were explained. Specific risks of the procedure including later recurrence of deformity. No guarantees were offered. If hardware used, discussed risk of failure/ breakage and possible need for removal. If complications occur, the patient understands the need for further treatment, possible further surgery. Patient verbalizes understanding and wishes to proceed. PLAN: left foot excision osteomyelitis, debridement diabetic foot ulcer History of Present Illness HPI Consult date: 05/28/22 Requesting physician: Selina Watts NP Chief complaint: Cellulitis Narrative: 66-year-old gentleman with diabetes and peripheral neuropathy known to the Orthopedic service for previous left foot necrotizing fasciitis. Multiple surgeries including 4th ray amputation. Presents this morning to the wound clinic for evaluation of persistent plantar ulcer left foot. States that there has been increased swelling and redness to the dorsum and lateral aspect of the foot over the past week. Couple days ago noticed that the top of the foot opened and bloody drainage was noted. Minimal pain secondary to neuropathy. He is in regular shoes. States that he has had chills at home over the past several days. He had an episode where he reportedly passed out and was down for 8 hours. admitted to the hospital for cellulitis and start IV antibiotics. I have been asked to see him for treatment of the left foot. Review of Systems Constitutional: Constitutional: Reports as per HPI, Denies chills, Denies fatigue and Denies weakness ENT: Reports Normal hearing present and Denies nasal discharge Cardiovascular: Cardiovascular: Denies chest pain, Reports pedal edema ( Left lower extremity) and Denies lightheadedness Respiratory: Respiratory: Denies cough, Denies dyspnea and Denies wheezing Gastrointestinal: Gastrointestinal: Denies abdominal pain, Denies diarrhea, Reports nausea and Reports vomiting Genitourinary: Genitourinary: Denies dysuria and Denies urinary frequency Musculoskeletal: Musculoskeletal: Reports as per HPI Integumentary/Breasts: Skin/Breast: Reports as per HPI, Reports erythema and Reports unusual bruising ( dorsal foot) Neurologic: Reports abnormal gait ( antalgic left lower extremi
[2022-05-28 14:42] VITALS: BMI 29.7
[2022-05-28 15:18] LABS: Basophils Percent Auto 0.4 % (0.2-1.2); Eosinophils Absolute Auto 0.1 K/mm3 (0-0.3); Eosinophils Percent Auto 1.4 % (0-4.4); Hematocrit 38.9 % (42.0-52.0); Hemoglobin 13.1 g/dL (14.0-18.0); Immature Granulocyte Absolute 0.04 K/mm3 (0.00-0.031); Immature Granulocyte Percent A 0.4 % (0-0.5); Lymphocytes Absolute Auto 1.42 K/mm3 (0.9-3.2); Lymphocytes Percent Auto 13.8 % (18.3-44.2); Mean Corpuscular HGB Conc 33.7 g/dl (32-36); Mean Corpuscular Hemoglobin 29.2 pg (26-34); Mean Corpuscular Volume 86.8 fl (80-100); Mean Platelet Volume 10.1 fl (7.4-10.4); Monocytes Absolute Auto 0.8 K/mm3 (0.1-0.6); Monocytes Percent Auto 7.6 % (2.6-8.5); Neutrophils Absolute Auto 7.8 K/mm3 (1.3-6.7); Neutrophils Percent Auto 76.4 % (45.5-73.1); Platelet Count Result 241 k/mm3 (150-375); Red Blood Count 4.48 M/mm3 (4.6-6.20); White Blood Count 10.3 K/mm3 (4.5-10.0)
[2022-05-28 15:28] VITALS: BP 104/60; PULSE 91; RESP 17; TEMP 36.6; O2SAT 100
[2022-05-28 15:28] LABS: Anion Gap 14 mmol/L (8-16); Blood Urea Nitrogen 21 mg/dL (9-20); Calcium 9.2 mg/dL (8.4-10.2); Carbon Dioxide 26 mmol/L (22-30); Chloride 97 mmol/L (98-107); Estimated CRCL calculation 47 ml/min; Estimated Glomerular Filt Rate 47; Glucose 152 mg/dL (65-110); Lactic Acid Reflex 1.6 mmol/L (0.7-2.0); Magnesium 1.7 mg/dL (1.6-2.3); Potassium 4.5 mmol/L (3.4-5.0); Sodium 137 mmol/L (137-145)
[2022-05-28] MEDS: SILVERGEL (ELTA) 45 ML 1 APPLIC TOPICAL (15:36)
[2022-05-28] MEDS: GABAPENTIN 300 MG CAPSULE 600 MG PO ×2 (15:38→20:18)
[2022-05-28] MEDS: metroNIDAZOLE 500 MG/ISO 100ML 500 MG/100 ML BAG 100 MG IVPB ×2 (15:45→20:18)
[2022-05-28 16:03] VITALS: BMI 29.7
[2022-05-28 16:27] LABS: Hemoglobin A1C 7.6 % (<5.7)
[2022-05-28 17:20] LABS: Glucose Point of Care 123 mg/dl (65-105)
[2022-05-28] MEDS: HYDROcodone/acetaminophen (*CRX) 5-325 MG TABLET 1 TAB PO (18:53)
[2022-05-28 20:00] VITALS: BP 147/68; PULSE 89; RESP 18; TEMP 37.3; O2SAT 98
[2022-05-28] MEDS: traZODone HCL 50 MG TABLET PO (20:19)
[2022-05-28 21:31] LABS: Glucose Point of Care 229 mg/dl (65-105)
[2022-05-29] VITALS (7 sets, daily range): BP systolic 116–133; BP diastolic 66–85; PULSE 70–83; RESP 16–20; TEMP 36.2–36.9; O2SAT 96–100
[2022-05-29] MEDS: HYDROcodone/acetaminophen (*CRX) 5-325 MG TABLET 1 TAB PO ×3 (06:23→22:09)
[2022-05-29] MEDS: metroNIDAZOLE 500 MG/ISO 100ML 500 MG/100 ML BAG 100 MG IVPB ×3 (06:23→20:59)
[2022-05-29] MEDS: GABAPENTIN 300 MG CAPSULE 600 MG PO ×3 (06:24→20:58)
[2022-05-29] MEDS: ONDANSETRON INJ 4 MG/2 ML VIAL IV PUSH (06:32)
--- NOTE | 2022-05-29 07:36 | PC.NURSE ---
This nurse assumed care of this patient on 05/28/22 at 1900. Any medications administered or charting after 1900 on 05/28/22 was KLL not the previous nurse.
[2022-05-29 08:17] LABS: Glucose Point of Care 178 mg/dl (65-105)
[2022-05-29] MEDS: GLIMEPIRIDE 1 MG TABLET PO (09:26)
[2022-05-29] MEDS: SILVERGEL (ELTA) 45 ML 1 APPLIC TOPICAL (09:26)
[2022-05-29 11:58] LABS: Glucose Point of Care 219 mg/dl (65-105)
[2022-05-29] MEDS: INSULIN ASPART (*BKC) 100 UNITS/ML SUB-Q (12:00)
--- NOTE | 2022-05-29 12:13 | PM.IMPN ---
Progress Note: A&P Assessment and Plan (1) Osteomyelitis of foot, left, acute: Code(s): M86.172 - Other acute osteomyelitis, left ankle and foot Status: Acute Assessment and Plan: -Dr. guan has been following the patient in his office. And sent him to the hospital for direct admission. He will be following the patient in the hospital as well. -as per antibiotic stewardship diabetic cellulitis the patient was started on all 3 antibiotics with cefepime, Flagyl, and vancomycin. Pharmacy to renal dose please -wound and blood cultures are pending. -consult Infectious Disease pharmacist -the patient has been seeing the wound care nurse and we will continue with the treatment plan as per wound care nurse. -analgesics as needed -I did reach out to the infectious disease pharmacist who agrees with the initial treatment, pending cultures. 05/29/2022 interval history: patient with reasonably control DM with A1c of 7.6 was seen by his orthopedic surgeon with left foot ulcer, and recent x-ray of the of remaining distal 4th metatarsal concerning for OM, patient is being treated cefepime, falgyl, and vancomycin, patient was admitted for further evaluation, debridement, biopsy of the bone and culture, patient remains clinically stable has no new complaint, once medically stable will have a PT OT evaluate the patient. (2) Hypertension: Code(s): I10 - Essential (primary) hypertension Status: Acute Assessment and Plan: -hydralazine p.r.n. (3) Diabetic peripheral neuropathy: Code(s): E11.42 - Type 2 diabetes mellitus with diabetic polyneuropathy Status: Acute Assessment and Plan: -continue gabapentin (4) Type 2 diabetes mellitus: Qualifiers: Diabetes mellitus penitentiary insulin use: without dietitian helper use Diabetes mellitus complication status: with neurologic complications Diabetes mellitus complication detail: with polyneuropathy Qualified Code(s): E11.42 - Type 2 diabetes mellitus with diabetic polyneuropathy Code(s): E11.9 - Type 2 diabetes mellitus without complications Status: Acute Assessment and Plan: -Accu-Cheks AC and sliding scale insulin. -continue with glimepiride. -the patient does not take his metformin so were going to hold that anyway. -will check A1c. (5) Anxiety: Code(s): F41.9 - Anxiety disorder, unspecified Status: Acute Assessment and Plan: -continue with trazodone Subjective Date/time seen: 05/29/22 12:13 Left foot bone Narrative: This is a 66-year-old male patient who has had a chronic diabetic foot ulcer to the left foot.? 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 The patient has been going to wound care clinic for treatment.? The patient stated that it was doing well until this past Tuesday he noticed that there was a blister and it popped open there is a hole noted on the top of the forefoot and on the bottom near the plantar surface.? The patient stated that it developed some redness around the area the redness is all the way up to about 2 in before his ankle and it has been draining as serous sanguinous drainage with a malodorous smell.? The patient was seeing Dr. Guan today in his office and his doctor sent him here as a direct admit.? The patient has had peptostreptococcus species and group B Streptococcus in the past.? He has also had? prevotella bivia in that left foot.? The patient denies any fever chills.? The patient is being admitted to observation status for diabetic foot cellulitis.? Date of service 05/28/2022. 05/29/2022 interval history: patient with reasonably control DM with A1c of 7.6 was seen by his orthopedic surgeon with left foot ulcer, and recent x-ray of the of remaining distal 4th metatarsal concerning for OM, patient is being treated cefepime, falgyl, and vancomycin, patient was admitted for further evaluation, debridement, biopsy of the bone and c
[2022-05-29 16:41] LABS: Glucose Point of Care 113 mg/dl (65-105)
[2022-05-29] MEDS: traZODone HCL 50 MG TABLET PO (20:58)
[2022-05-29 21:50] LABS: Glucose Point of Care 153 mg/dl (65-105)
[2022-05-30 04:00] VITALS: BP 125/72; PULSE 70; RESP 18; TEMP 36.9; O2SAT 98
[2022-05-30] MEDS: HYDROcodone/acetaminophen (*CRX) 5-325 MG TABLET 1 TAB PO ×4 (05:56→21:34)
[2022-05-30] MEDS: GABAPENTIN 300 MG CAPSULE 600 MG PO ×3 (05:57→21:22)
[2022-05-30] MEDS: SILVERGEL (ELTA) 45 ML 1 APPLIC TOPICAL (05:58)
[2022-05-30] MEDS: metroNIDAZOLE 500 MG/ISO 100ML 500 MG/100 ML BAG 100 MG IVPB ×3 (06:48→21:26)
[2022-05-30 07:45] LABS: Glucose Point of Care 168 mg/dl (65-105)
[2022-05-30 07:50] LABS: Hematocrit 40.4 % (42.0-52.0); Hemoglobin 13.3 g/dL (14.0-18.0); Mean Corpuscular HGB Conc 32.9 g/dl (32-36); Mean Corpuscular Hemoglobin 29.8 pg (26-34); Mean Corpuscular Volume 90.6 fl (80-100); Mean Platelet Volume 10.6 fl (7.4-10.4); Platelet Count Result 265 k/mm3 (150-375); Red Blood Count 4.46 M/mm3 (4.6-6.20); White Blood Count 7.5 K/mm3 (4.5-10.0)
[2022-05-30] MEDS: GLIMEPIRIDE 1 MG TABLET PO (07:55)
[2022-05-30 07:58] LABS: Anion Gap 12 mmol/L (8-16); Blood Urea Nitrogen 19 mg/dL (9-20); Calcium 9.3 mg/dL (8.4-10.2); Carbon Dioxide 24 mmol/L (22-30); Chloride 99 mmol/L (98-107); Estimated CRCL calculation 62 ml/min; Estimated Glomerular Filt Rate > 60; Glucose 161 mg/dL (65-110); Potassium 4.4 mmol/L (3.4-5.0); Sodium 135 mmol/L (137-145)
[2022-05-30 08:00] VITALS: BP 129/77; PULSE 75; RESP 18; TEMP 36.3; O2SAT 100
--- NOTE | 2022-05-30 08:25 | PM.PNORT ---
Progress Note: A&P Assessment and Plan (1) Osteomyelitis of foot, left, acute: Code(s): M86.172 - Other acute osteomyelitis, left ankle and foot Status: Acute Assessment and Plan: IV antibiotics started. Dressing changed today. Exam essentially unchanged from 05/28. Reviewed surgical plan with patient for left foot excision of osteomyelitis and debridement of ulcer. Questions answered. Patient verbalizes agreement. n.p.o. midnight for surgery 05/31. Subjective Subjective Date/Time Seen: 05/30/22 08:25 Principal diagnosis: Left foot osteomyelitis Interval history: patient seen and examined. Dressing left foot changed. Patient reports no new problems. Exam Const: General: healthy appearing; No in distress or confusion Orientation/consciousness: oriented to person, oriented to place, oriented to time and No confusion Neck: Neck: supple and nontender Resp: Effort & Inspection: normal respiratory effort and no audible wheezes Cardio: Rate: regular rate Rhythm: regular rhythm Neuro: General: oriented to person, oriented to place, oriented to time and No confusion Extrem: Right upper extremity: normal to inspection Left upper extremity: normal to inspection Right lower extremity: ankle Details: normal to inspection, abnormal ROM Details: with range as follows (Ankle dorsiflexion -10 degrees, Plantar flexion 40 degrees, inversion 15 degrees, [id number] degress) and other (Good stability all directions); no tenderness, no swelling and no ecchymosis and foot Details: abnormal to inspection, abnormal ROM of toe (Hallux MTP dorsieflexion 40, planterflexion 20), vascular exam Details: dorsalis pedis pulse present and normal capillary refill, tendon exam Details: active flexion abnormal and active extension abnormal, motor-sensory exam Details: two point discrimination abnormal Location: in all toes and light-touch abnormal Location: in all toes and other (Hallux Metatarsophalangeal motion 20 degrees dorisiflexion 10 degrees, plantar flexion ) Left lower extremity: ankle Details: normal to inspection and abnormal ROM Details: with range as follows (Ankle dorsiflexion -10, planter flexion 40, inversion 15, eversion 15); no tenderness and no swelling and foot Details: normal capillary refill, abnormal to inspection Details: 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 Probes to bone. Sanguinous drainage. 2.8 cm depth. 4 mm x 4 mm dorsal ulceration with surrounding erythema and sanguinous drainage.); no tenderness and no crepitus Other: Palpable DP pulses bilaterally. Psych: Affect: normal affect Objective Data Vital Signs Vital Signs: Vital Signs - 24 hr 05/29/22 12:00 05/29/22 16:00 05/29/22 20:00 Temperature 97.1 F L 97.6 F 98.4 F Pulse Rate 80 83 74 Respiratory Rate 18 20 16 Blood Pressure 119/66 116/77 123/78 Pulse Oximetry 100 99 98 Oxygen Delivery 05/29/22 20:00 05/29/22 23:00 05/30/22 04:00 Temperature 98.5 F 98.5 F Pulse Rate 70 70 Respiratory Rate 18 18 Blood Pressure 125/72 125/72 Pulse Oximetry 98 98 Oxygen Delivery Room Air Intake/Output Intake/Output: Intake & Output 05/27/22 05/28/22 05/29/22 05/30/22 23:59 23:59 23:59 23:59 Intake Total 1090 2717 Output Total 250 3325 350 Balance 840 -608 -350 Meds/Results Medications: Active Medications Generic Name Dose Route Start Last Admin Trade Name Freq PRN Reason Stop Dose Admin Hydrocodone Bitart/Acetaminophen 1 tab 05/28/22 13:49 05/30/22 05:56 Hydrocodone/Acetaminophen (*Crx) 5-325 Mg Tablet PO 1 tab Q4H PRN Administration Moderate Pain (4-6) Al
[2022-05-30 11:32] LABS: Glucose Point of Care 212 mg/dl (65-105)
[2022-05-30] MEDS: INSULIN ASPART (*BKC) 100 UNITS/ML SUB-Q (11:58)
[2022-05-30 12:00] VITALS: BP 124/75; PULSE 74; RESP 18; TEMP 36.6; O2SAT 100
--- NOTE | 2022-05-30 12:18 | PM.IMPN ---
Progress Note: A&P Assessment and Plan (1) Osteomyelitis of foot, left, acute: Code(s): M86.172 - Other acute osteomyelitis, left ankle and foot Status: Acute Assessment and Plan: -Dr. guan has been following the patient in his office. And sent him to the hospital for direct admission. He will be following the patient in the hospital as well. -as per antibiotic stewardship diabetic cellulitis the patient was started on all 3 antibiotics with cefepime, Flagyl, and vancomycin. Pharmacy to renal dose please -wound and blood cultures are pending. -consult Infectious Disease pharmacist -the patient has been seeing the wound care nurse and we will continue with the treatment plan as per wound care nurse. -analgesics as needed -I did reach out to the infectious disease pharmacist who agrees with the initial treatment, pending cultures. 05/30/2022 interval history: patient with reasonably control DM with A1c of 7.6 was seen by his orthopedic surgeon with left foot ulcer, and recent x-ray of the of remaining distal 4th metatarsal concerning for OM, patient is being treated cefepime, falgyl, and vancomycin, patient was admitted for further evaluation, debridement, biopsy of the bone and culture, patient was agian seen by his surgeon and went over with procedure which is scheduled for tomorrow, patient remains clinically stable has no new complaint, once medically stable will have a PT OT evaluate the patient. (2) Hypertension: Code(s): I10 - Essential (primary) hypertension Status: Acute Assessment and Plan: -hydralazine p.r.n. (3) Diabetic peripheral neuropathy: Code(s): E11.42 - Type 2 diabetes mellitus with diabetic polyneuropathy Status: Acute Assessment and Plan: -continue gabapentin (4) Type 2 diabetes mellitus: Qualifiers: Diabetes mellitus long-term insulin use: without exterminator termite use Diabetes mellitus complication status: with neurologic complications Diabetes mellitus complication detail: with polyneuropathy Qualified Code(s): E11.42 - Type 2 diabetes mellitus with diabetic polyneuropathy Code(s): E11.9 - Type 2 diabetes mellitus without complications Status: Acute Assessment and Plan: -Accu-Cheks AC and sliding scale insulin. -continue with glimepiride. -the patient does not take his metformin so were going to hold that anyway. -will check A1c. (5) Anxiety: Code(s): F41.9 - Anxiety disorder, unspecified Status: Acute Assessment and Plan: -continue with trazodone Subjective Date/time seen: 05/30/22 12:18 05/30/2022 interval history: patient with reasonably control DM with A1c of 7.6 was seen by his orthopedic surgeon with left foot ulcer, and recent x-ray of the of remaining distal 4th metatarsal concerning for OM, patient is being treated cefepime, falgyl, and vancomycin, patient was admitted for further evaluation, debridement, biopsy of the bone and culture, patient was agian seen by his surgeon and went over with procedure which is scheduled for tomorrow, patient remains clinically stable has no new complaint, once medically stable will have a PT OT evaluate the patient. Review of Systems Review of Systems: All systems reviewed & are unremarkable except as noted in HPI and below Exam Narrative: Patient is comfortable, NAD HEENT: eyes are clear and none icteric LUNGS: normal respiratory effort ABD: not distended Lower extremities: no edema MS: left foot surgical dressing SKIN: nonjaundiced Neuro: grossly intact. Objective Data Vital Signs Vital Signs: Vital Signs - 24 hr 05/29/22 16:00 05/29/22 20:00 05/29/22 20:00 Temperature 97.6 F 98.4 F Pulse Rate 83 74 Respiratory Rate 20 16 Blood Pressure 116/77 123/78 Pulse Oximetry 99 98 Oxygen Delivery Room Air 05/29/22 23:00 05/30/22 04:00 05/30/22 07:45 Temperature 98.5 F 98.5 F Pulse Rate 70 70 Respiratory Rate 18 18 Blood Pre
[2022-05-30 16:00] VITALS: BP 128/76; PULSE 74; RESP 18; TEMP 36.3; O2SAT 100
[2022-05-30 16:29] LABS: Glucose Point of Care 142 mg/dl (65-105)
[2022-05-30 20:00] VITALS: BP 128/67; PULSE 88; RESP 14; TEMP 36.7; O2SAT 98
[2022-05-30] MEDS: traZODone HCL 50 MG TABLET PO (21:22)
[2022-05-30] MEDS: CENTRAL LINE FLUSH 10 ML IV PUSH (21:24)
[2022-05-31] VITALS (17 sets, daily range): BP systolic 118–153; BP diastolic 57–83; PULSE 78–91; RESP 12–18; TEMP 35.9–37.2; O2SAT 96–100
[2022-05-31 02:07] LABS: Hematocrit 34.9 % (42.0-52.0); Hemoglobin 11.5 g/dL (14.0-18.0); Mean Corpuscular Hemoglobin 29.1 pg (26-34); Mean Corpuscular Volume 88.4 fl (80-100); Mean Platelet Volume 9.8 fl (7.4-10.4); Platelet Count Result 234 k/mm3 (150-375); Red Blood Count 3.95 M/mm3 (4.6-6.20); Red Cell Distribution Width 12.8 % (11.5-14.5); White Blood Count 8.9 K/mm3 (4.5-10.0)
[2022-05-31 02:19] LABS: Anion Gap 8 mmol/L (8-16); Blood Urea Nitrogen 19 mg/dL (9-20); Calcium 8.7 mg/dL (8.4-10.2); Carbon Dioxide 27 mmol/L (22-30); Chloride 98 mmol/L (98-107); Estimated CRCL calculation 58 ml/min; Estimated Glomerular Filt Rate > 60; Glucose 267 mg/dL (65-110); Potassium 4.4 mmol/L (3.4-5.0); Sodium 133 mmol/L (137-145)
--- NOTE | 2022-05-31 06:04 | PC.NURSE ---
Addendum entered by Amaya Prado RN 05/31/22 06:05: Antibiotics for 0600 sent to pre-op with pt. Original Note: pt transported to pre-op. Report to DENEEN Valdes.
[2022-05-31] MEDS: metroNIDAZOLE 500 MG/ISO 100ML 500 MG/100 ML BAG 100 MG IVPB ×3 (06:39→20:49)
[2022-05-31] MEDS: LACTATED RINGERS 1,000 ML 30 ML IV CONT (07:10)
--- NOTE | 2022-05-31 07:11 | WPDANESEPPF ---
Anes - Initial Pre Proc Eval Procedure: Operation Date: 05/31/22 07:30 Proposed Procedures p Excision of Exostosis Left Foot - Liam Cotton MD s Debridement of Diabetic Foot Ulcer with Application Graft and Total Contact Cast - Liam Cotton MD Date/Time: 05/31/22 07:11 Surgeon: Mayo Morocho MD Pre Op Diagnosis: Cellulitis Patient Data Age: 66 Gender: M Height: 1.8 m Weight: 96.7 kg Last Vital Signs Temp 36.4 C L 05/31/22 07:07 Pulse 80 05/31/22 07:07 Resp 16 05/31/22 07:07 BP 150/80 H 05/31/22 07:07 Pulse Ox 100 05/31/22 07:07 O2 Del Method Room Air 05/31/22 07:07 Allergies Allergy/AdvReac Type Severity Reaction Status Date / Time No Known Allergies Allergy Verified 05/27/22 11:29 Home Medications Medication Instructions Recorded Confirmed Type OneTouch Delica Plus Lancet 30 #30 ea 05/19/20 05/28/22 Rx gauge (lancets) OneTouch Verio Flex meter #1 ea 05/19/20 05/28/22 Rx (blood-glucose meter) OneTouch Verio test strips (blood #30 ea 05/19/20 05/28/22 Rx sugar diagnostic) albuterol sulfate 90 mcg/actuation 2 puff inhalation Q6HRT PRN 09/11/21 05/28/22 Rx aerosol inhaler (Proventil HFA) Shortness Of Breath #1 inh hydrocodone 5 mg-acetaminophen 325 1 tablet PO Q6H PRN pain #100 tabs 05/06/22 05/28/22 Rx mg tablet metformin 500 mg tablet,extended 1,000 mg PO BID #120 tabs 05/06/22 05/28/22 Rx release 24 hr gabapentin 300 mg capsule 600 mg PO Q8HR 90 days #540 caps 05/13/22 05/28/22 Rx (Neurontin) glimepiride 1 mg tablet 1 mg PO QAM #90 tabs 05/13/22 05/28/22 Rx linaclotide 72 mcg capsule 72 mcg PO DAILY #30 caps 05/13/22 05/28/22 Rx (Linzess) sildenafil 100 mg tablet 100 mg PO DAILY PRN sexual 05/13/22 05/28/22 Rx activity #6 tabs triamcinolone acetonide 0.1 % 1 applic topical BID #80 grams 05/13/22 05/28/22 Rx topical cream cephalexin 500 mg capsule 500 mg PO Q6H #40 caps 05/25/22 05/28/22 Rx sulfamethoxazole 800 1 tablet PO Q12H #20 tabs 05/25/22 05/28/22 Rx mg-trimethoprim 160 mg tablet (Bactrim DS) ibuprofen 400 mg tablet 400 mg PO Q6H PRN Pain 05/27/22 05/28/22 History trazodone 50 mg tablet 50 mg PO HS 05/28/22 05/28/22 History Laboratory Tests 05/30/22 05/30/22 05/30/22 06:35 06:35 07:33 WBC 7.5 K/mm3 K/mm3 (4.5-10.0) RBC 4.46 M/mm3 L M/mm3 (4.6-6.20) Hgb 13.3 g/dL L g/dL (14.0-18.0) Hct 40.4 % L % (42.0-52.0) MCV 90.6 fl fl (80-100) MCH 29.8 pg pg (26-34) MCHC 32.9 g/dl g/dl (32-36) RDW 13.0 % % (11.5-14.5) Plt Count 265 k/mm3 k/mm3 (150-375) MPV 10.6 fl H fl (7.4-10.4) Sodium 135 mmol/L L mmol/L (137-145) Potassium 4.4 mmol/L mmol/L (3.4-5.0) Chloride 99 mmol/L mmol/L (98-107) Carbon Dioxide 24 mmol/L mmol/L (22-30) Anion Gap 12 mmol/L mmol/L (8-16) BUN 19 mg/dL mg/dL (9-20) Creatinine 1.10 mg/dL mg/dL (0.7-1.3) Estim Creat Clear Calc 62 ml/min ml/min Estimated GFR > 60 (59 - ) Glucose 161 mg/dL H mg/dL (65-110) POC Capillary Glucose 168 mg/dl H mg/dl (65-105) Calcium 9.3 mg/dL mg/dL (8.4-10.2) 05/30/22 05/30/22 05/31/22 11:28 16:18 01:45 WBC 8.9 K/mm3 K/mm3 (4.5-10.0) RBC 3.95 M/mm3 L M/mm3 (4.6-6.20) Hgb 11.5 g/dL L g/dL (14.0-18.0) Hct 34.9 % L % (42.0-52.0) MCV 88.4 fl fl (80-100) MCH 29.1 pg pg (26-34) MCHC 33.0 g/dl g/dl (32-36) RDW 12.8 % % (11.5-14.5) Plt Count 234 k/mm3 k/mm3 (150-375) MPV 9.8 fl fl (7.4-10.4) Sodium Potassium Chloride Carbon Dioxide Anion Gap BUN Creatinine Estim Creat Clear Calc Estimated GFR
--- NOTE | 2022-05-31 07:17 | WPDHPUPDATE1 ---
History and Physical Update Update Date/Time: 05/31/22 07:17 History and Physical has been reviewed, including an updated exam of the patient. There are NO changes in the patient's condition. Risks, benefits, and alternatives have been discussed and questions answered. Patient agrees to proceed with procedure.
[2022-05-31 08:44] LABS: Glucose Point of Care 124 mg/dl (65-105)
--- NOTE | 2022-05-31 08:45 | SUR.OPER ---
0809 DR BETANCOURT NOTIFIED OF LEFT FOOT STAT GRAM STAIN FEW WBC'S, NO ORGANISMS SEEN PER LAB VERIFIED RESULTS X2 WITH LAB
--- NOTE | 2022-05-31 09:13 | W.PM.PROC2 ---
Procedure Note - Detailed Date of Procedure 05/31/22 Pre-op Diagnosis Left foot osteomyelitis Post-op Diagnosis Same Procedure Performed excision of osteomyelitis left foot with excisional debridement of diabetic foot ulcer to muscle layer Surgeon Liam Cotton MD Registered Account Administrator 1st commercial real estate assistant Anesthesia General Indications 66-year-old gentleman with chronic plantar ulcer left foot. Now with cellulitis and radiographs showing evidence of osteomyelitis 4th metatarsal. Presents for operative treatment. Findings Inflammatory changes suspicious of osteomyelitis 4th metatarsal. Surrounding abscess. Plantar ulcer 1 cm by 3 mm. A dorsal ulcer communicating with the osteomyelitis. Description of Procedure Patient identified in the preoperative holding. Informed consent given. Operative extremity marked. Patient received intravenous antibiotics. Patient brought to the operating room where underwent general anesthetic by anesthesia team. Positioned supine on operating room table. Time-out performed confirming the patient, site of the surgery and the plan. Betadine prep solution for the left foot. Foot and ankle exsanguinated and the thigh tourniquet inflated to 250 mmHg. Dorsal longitudinal incision made ellipsing the dorsal ulcer with a 15 blade knife. Incision made over the 4th metatarsal. Dissection carried down. Infected material from the dorsal ulcer and the surrounding soft tissue excised over the distal aspect of the 4th metatarsal bone. Distal metatarsal exposed. Bone cutter used to transect the metatarsal approximately 2 cm proximal to the distal end. This bone was passed off as specimen. Surrounding tissue sharply debrided. Wound cultures taken from the area that appeared to be infected around the metatarsal. Wound thoroughly irrigated with saline. Wound closed with 0 Prolene interrupted suture. Plantar ulcer then addressed. Fifteen blade knife used to ellipse the ulcer as well as debride necrotic and infected skin, subcutaneous tissue and muscle. Wound thoroughly irrigated and closed with 0 Prolene interrupted suture. Sterile dressing applied. The patient was then woken from anesthesia, extubated and taken to the recovery room in stable condition. All sponge, needle, instrument counts were correct at the end of the case. Estimated Blood Loss 5 Tourniquet Time 40 Urine Output 500 Drains No Packing No Pathology Yes ( Culture and Gram stain left foot. Fourth metatarsal bone for tissue) Complications None Condition Stable Disposition PACU
[2022-05-31] MEDS: fentaNYL CITRATE INJ (*CRX) 100 MCG/2 ML VIAL 25 MCG IV PUSH ×2 (09:50→09:55)
--- NOTE | 2022-05-31 10:16 | SUR.PHASEI ---
Patient said he would give friend an update himself when he got back to his room.
[2022-05-31 11:46] LABS: Glucose Point of Care 115 mg/dl (65-105)
--- NOTE | 2022-05-31 12:14 | PM.IMPN ---
Progress Note: A&P Assessment and Plan (1) Osteomyelitis of foot, left, acute: Code(s): M86.172 - Other acute osteomyelitis, left ankle and foot Status: Acute Assessment and Plan: -Dr. guan has been following the patient in his office. And sent him to the hospital for direct admission. He will be following the patient in the hospital as well. -as per antibiotic stewardship diabetic cellulitis the patient was started on all 3 antibiotics with cefepime, Flagyl, and vancomycin. Pharmacy to renal dose please -wound and blood cultures are pending. -consult Infectious Disease pharmacist -the patient has been seeing the wound care nurse and we will continue with the treatment plan as per wound care nurse. -analgesics as needed -I did reach out to the infectious disease pharmacist who agrees with the initial treatment, pending cultures. 05/31/2022 interval history: patient with reasonably control DM with A1c of 7.6 was seen by his orthopedic surgeon with left foot ulcer, and recent x-ray of the of remaining distal 4th metatarsal concerning for OM, patient is being treated cefepime, falgyl, and vancomycin, patient was admitted for further evaluation, debridement, biopsy of the bone and culture, on 05/30 patient was again seen by his surgeon and went over with procedure which is scheduled for today, patient just returned from the surgery wound cultures were collected, Will CPM pending culture report and further recommendation to follow. patient remains clinically stable has no new complaint, once medically stable will have a PT OT evaluate the patient. (2) Hypertension: Code(s): I10 - Essential (primary) hypertension Status: Acute Assessment and Plan: -hydralazine p.r.n. (3) Diabetic peripheral neuropathy: Code(s): E11.42 - Type 2 diabetes mellitus with diabetic polyneuropathy Status: Acute Assessment and Plan: -continue gabapentin (4) Type 2 diabetes mellitus: Qualifiers: Diabetes mellitus long term care administrator insulin use: without longterm use Diabetes mellitus complication status: with neurologic complications Diabetes mellitus complication detail: with polyneuropathy Qualified Code(s): E11.42 - Type 2 diabetes mellitus with diabetic polyneuropathy Code(s): E11.9 - Type 2 diabetes mellitus without complications Status: Acute Assessment and Plan: -Accu-Cheks AC and sliding scale insulin. -continue with glimepiride. -the patient does not take his metformin so were going to hold that anyway. -will check A1c. (5) Anxiety: Code(s): F41.9 - Anxiety disorder, unspecified Status: Acute Assessment and Plan: -continue with trazodone Subjective Date/time seen: 05/31/22 12:14 05/31/2022 interval history: patient with reasonably control DM with A1c of 7.6 was seen by his orthopedic surgeon with left foot ulcer, and recent x-ray of the of remaining distal 4th metatarsal concerning for OM, patient is being treated cefepime, falgyl, and vancomycin, patient was admitted for further evaluation, debridement, biopsy of the bone and culture, on 05/30 patient was again seen by his surgeon and went over with procedure which is scheduled for today, patient just returned from the surgery wound cultures were collected, Will CPM pending culture report and further recommendation to follow. patient remains clinically stable has no new complaint, once medically stable will have a PT OT evaluate the patient. Review of Systems Review of Systems: All systems reviewed & are unremarkable except as noted in HPI and below Exam Narrative: Patient is comfortable, NAD HEENT: eyes are clear and none icteric LUNGS: normal respiratory effort ABD: not distended Lower extremities: no edema MS: left foot surgical dressing SKIN: nonjaundiced Neuro: grossly intact. Objective Data Vital Signs Vital Signs: Vital Signs - 24 hr 05/30/22 16:00 05/30/22 20:00
[2022-05-31] MEDS: GABAPENTIN 300 MG CAPSULE 600 MG PO ×2 (13:47→20:48)
[2022-05-31] MEDS: CENTRAL LINE FLUSH 10 ML IV PUSH ×2 (13:48→20:54)
[2022-05-31] MEDS: HYDROcodone/acetaminophen (*CRX) 5-325 MG TABLET 1 TAB PO ×2 (13:49→20:49)
[2022-05-31 16:30] LABS: Glucose Point of Care 136 mg/dl (65-105)
[2022-05-31] MEDS: SENNA/DOCUSATE SODIUM TABLET 2 TAB PO (17:22)
[2022-05-31 19:00] LABS: Vancomycin Trough 12.7 ug/mL (10.0-20.0)
[2022-05-31] MEDS: traZODone HCL 50 MG TABLET PO (20:48)
[2022-05-31 23:29] LABS: Glucose Point of Care 142 mg/dl (65-105)
[2022-06-01 04:00] VITALS: BP 135/77; PULSE 74; RESP 18; TEMP 36.7; O2SAT 99
[2022-06-01 05:23] LABS: Hematocrit 35.5 % (42.0-52.0); Hemoglobin 11.6 g/dL (14.0-18.0); Mean Corpuscular HGB Conc 32.7 g/dl (32-36); Mean Corpuscular Hemoglobin 29.1 pg (26-34); Mean Corpuscular Volume 89.2 fl (80-100); Mean Platelet Volume 9.8 fl (7.4-10.4); Platelet Count Result 242 k/mm3 (150-375); Red Blood Count 3.98 M/mm3 (4.6-6.20); Red Cell Distribution Width 12.8 % (11.5-14.5); White Blood Count 6.9 K/mm3 (4.5-10.0)
[2022-06-01 05:33] LABS: Anion Gap 10 mmol/L (8-16); Blood Urea Nitrogen 14 mg/dL (9-20); Calcium 8.9 mg/dL (8.4-10.2); Carbon Dioxide 29 mmol/L (22-30); Chloride 99 mmol/L (98-107); Estimated CRCL calculation 58 ml/min; Estimated Glomerular Filt Rate > 60; Glucose 189 mg/dL (65-110); Potassium 4.3 mmol/L (3.4-5.0); Sodium 138 mmol/L (137-145)
[2022-06-01] MEDS: metroNIDAZOLE 500 MG/ISO 100ML 500 MG/100 ML BAG 100 MG IVPB ×3 (05:37→20:49)
[2022-06-01] MEDS: CENTRAL LINE FLUSH 10 ML IV PUSH ×3 (05:39→20:50)
[2022-06-01] MEDS: GABAPENTIN 300 MG CAPSULE 600 MG PO ×3 (05:40→20:49)
[2022-06-01] MEDS: HYDROcodone/acetaminophen (*CRX) 5-325 MG TABLET 1 TAB PO ×2 (05:51→18:12)
[2022-06-01 07:55] LABS: Glucose Point of Care 216 mg/dl (65-105)
[2022-06-01 08:00] VITALS: BP 141/77; PULSE 72; RESP 18; TEMP 36.3; O2SAT 97
[2022-06-01] MEDS: SENNA/DOCUSATE SODIUM TABLET 2 TAB PO ×2 (08:48→17:01)
[2022-06-01] MEDS: GLIMEPIRIDE 1 MG TABLET PO (08:48)
[2022-06-01] MEDS: polyethylene glycoL 3350 17 GM POWD.PACK PO (08:49)
[2022-06-01] MEDS: INSULIN ASPART (*BKC) 100 UNITS/ML SUB-Q (08:49)
--- NOTE | 2022-06-01 09:59 | PM.PNORT ---
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 WB on Heel. Post Op Shoe. Dressing change. Transition to daily dressing changed with adaptic over incision lines, ABD and cover dry. IV antibiotics. Intraoperative cultures and pathology pending to determine need for supervisor intermediates antibiotics. Dispo: Home with Home Health, possible IV infusion pending results as above. (2) Osteomyelitis of foot, left, acute: Code(s): M86.172 - Other acute osteomyelitis, left ankle and foot Status: Acute (3) Type 2 diabetes mellitus: Qualifiers: Diabetes mellitus usp insulin use: without supervisor intermediates use Diabetes mellitus complication status: with neurologic complications Diabetes mellitus complication detail: with polyneuropathy Qualified Code(s): E11.42 - Type 2 diabetes mellitus with diabetic polyneuropathy Code(s): E11.9 - Type 2 diabetes mellitus without complications Status: Acute Assessment and Plan: Patient does not check BG levels at home and refuses to follow DM Diet. Would benefit from DM Nurse Educator before discharge. Subjective Subjective Date/Time Seen: 06/01/22 09:59 Post Op day: 1 Interval history: POD #1: Excision of osteomyelitis left foot with excisional debridement of diabetic foot ulcer to muscle layer Patient doing well. Improvement in overall condition. No new concerns. Review of Systems Review of Systems: All systems reviewed & are unremarkable except as noted in HPI and below (HPI ) Musculoskeletal: Comments: Dressing removed. Dorsal incision well approximated with sutures. Plantar ulcer well approximated as well. Scant sanguinous drainage. Minimal redness/warmth. Improved from previous exam. Exam Const: General: comfortable and no acute distress Resp: Effort & Inspection: normal respiratory effort Cardio: Rate: regular rate Rhythm: regular rhythm GI: Inspection: non-distended GI Palp: Yes Soft to palpation and Yes Firmness to palpation present (GI) Psych: Mental Status: mental status grossly normal Objective Data Vital Signs Vital Signs: Vital Signs - 24 hr 05/31/22 10:00 05/31/22 10:15 05/31/22 10:15 Temperature 36.1 C L Pulse Rate 80 80 Respiratory Rate 14 16 Blood Pressure 119/77 132/72 Pulse Oximetry 100 100 Oxygen Delivery Room Air Room Air 05/31/22 10:30 05/31/22 11:00 05/31/22 11:20 Temperature 36.2 C L 36.2 C L 35.9 C L Pulse Rate 79 79 81 Respiratory Rate 14 16 16 Blood Pressure 134/70 137/77 133/73 Pulse Oximetry 100 100 99 Oxygen Delivery 05/31/22 14:00 05/31/22 16:00 05/31/22 17:23 Temperature 36.5 C 36.5 C Pulse Rate 91 91 Respiratory Rate 18 18 Blood Pressure 135/57 L 135/57 L Pulse Oximetry 100 100 Oxygen Delivery Room Air 05/31/22 20:00 05/31/22 20:00 05/31/22 23:29 Temperature 36.8 C 37.2 C Pulse Rate 90 87 Respiratory Rate 18 17 Blood Pressure 118/83 153/79 H Pulse Oximetry 100 96 Oxygen Delivery Room Air 06/01/22 04:00 06/01/22 08:00 Temperature 36.7 C 36.3 C L Pulse Rate 74 72 Respiratory Rate 18 18 Blood Pressure 135/77 141/77 H Pulse Oximetry 99 97 Oxygen Delivery Intake/Output Intake/Output: Intake & Output 05/29/22 05/30/22 05/31/22 06/01/22 23:59 23:59 23:59 23:59 Intake Total 9407 7500 2877 1030 Output Total 3322 1970 1600
--- NOTE | 2022-06-01 10:30 | WPDANESPN ---
Anes - Prog Note Post-Op Date/Time: 06/01/22 09:12 Cardiovascular status: normal Respiratory status: normal Airway patency: baseline Mental status: baseline Post-Op hydration status: normal Vital Signs: Last Vital Signs Temp 97.3 F L 06/01/22 08:00 Pulse 72 06/01/22 08:00 Resp 18 06/01/22 08:00 BP 141/77 H 06/01/22 08:00 Pulse Ox 97 06/01/22 08:00 O2 Del Method Room Air 05/31/22 20:00 O2 Flow Rate 8 05/31/22 09:00 Pain Score (VAS): 0 I/O: Intake & Output 05/31/22 06/01/22 06/01/22 23:59 07:59 15:59 Intake Total 937 550 480 Output Total 1100 1200 Balance -163 -650 480 Laboratory Tests 06/01/22 05:17 06/01/22 05:17 05/31/22 05/31/22 05/31/22 11:32 16:21 18:27 WBC RBC Hgb Hct MCV MCH MCHC RDW Plt Count MPV Sodium Potassium Chloride Carbon Dioxide Anion Gap BUN Creatinine Estim Creat Clear Calc Estimated GFR Glucose POC Capillary Glucose 115 H 136 H Calcium Vancomycin Trough 12.7 05/31/22 06/01/22 06/01/22 19:47 05:17 05:17 WBC 6.9 RBC 3.98 L Hgb 11.6 L Hct 35.5 L MCV 89.2 MCH 29.1 MCHC 32.7 RDW 12.8 Plt Count 242 MPV 9.8 Sodium 138 Potassium 4.3 Chloride 99 Carbon Dioxide 29 Anion Gap 10 BUN 14 D Creatinine 1.20 Estim Creat Clear Calc 58 Estimated GFR > 60 Glucose 189 H POC Capillary Glucose 142 H Calcium 8.9 Vancomycin Trough 06/01/22 07:47 WBC RBC Hgb Hct MCV MCH MCHC RDW Plt Count MPV Sodium Potassium Chloride Carbon Dioxide Anion Gap BUN Creatinine Estim Creat Clear Calc Estimated GFR Glucose POC Capillary Glucose 216 H Calcium Vancomycin Trough Microbiology 05/31/22 07:58 Foot Left Gram Stain - Final Post-procedural complaints: none Patient Feedback: Patient satisfied with anesthetic care.
[2022-06-01 11:35] LABS: Glucose Point of Care 186 mg/dl (65-105)
[2022-06-01 11:55] VITALS: BP 133/74; PULSE 84; RESP 18; TEMP 36.3; O2SAT 97
--- NOTE | 2022-06-01 15:27 | PM.IMPN ---
Progress Note: A&P Assessment and Plan (1) Osteomyelitis of foot, left, acute: Code(s): M86.172 - Other acute osteomyelitis, left ankle and foot Status: Acute Assessment and Plan: -Dr. guan has been following the patient in his office. And sent him to the hospital for direct admission. He will be following the patient in the hospital as well. -as per antibiotic stewardship diabetic cellulitis the patient was started on all 3 antibiotics with cefepime, Flagyl, and vancomycin. Pharmacy to renal dose please -wound and blood cultures are pending. -consult Infectious Disease pharmacist -the patient has been seeing the wound care nurse and we will continue with the treatment plan as per wound care nurse. -analgesics as needed -I did reach out to the infectious disease pharmacist who agrees with the initial treatment, pending cultures. 06/01/2022 interval history: patient with reasonably control DM with A1c of 7.6 was seen by his orthopedic surgeon with left foot ulcer, and recent x-ray of the of remaining distal 4th metatarsal concerning for OM, patient is being treated cefepime, falgyl, and vancomycin, patient was admitted for further evaluation, debridement, biopsy of the bone and culture, on 05/30 patient was again seen by his surgeon and went over with procedure and patient had debriedment of the wound, and sample collected of culture on 05/31. Will CPM pending culture report and further recommendation to follow. today patient was seen orthopedic service and wound dressing was changed instructed weight-bearing on heel and postop shoe patient remains clinically stable has no new complaint, once medically stable will have a PT OT evaluate the patient. (2) Hypertension: Code(s): I10 - Essential (primary) hypertension Status: Acute Assessment and Plan: -hydralazine p.r.n. 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 -continue with glimepiride. -the patient does not take his metformin so were going to hold that anyway. -will check A1c. (5) Anxiety: Code(s): F41.9 - Anxiety disorder, unspecified Status: Acute Assessment and Plan: -continue with trazodone Subjective Date/time seen: 06/01/22 15:27 06/01/2022 interval history: patient with reasonably control DM with A1c of 7.6 was seen by his orthopedic surgeon with left foot ulcer, and recent x-ray of the of remaining distal 4th metatarsal concerning for OM, patient is being treated cefepime, falgyl, and vancomycin, patient was admitted for further evaluation, debridement, biopsy of the bone and culture, on 05/30 patient was again seen by his surgeon and went over with procedure and patient had debriedment of the wound, and sample collected of culture on 05/31. Will CPM pending culture report and further recommendation to follow. today patient was seen orthopedic service and wound dressing was changed instructed weight-bearing on heel and postop shoe patient remains clinically stable has no new complaint, once medically stable will have a PT OT evaluate the patient. Review of Systems Review of Systems: All systems reviewed & are unremarkable except as noted in HPI and below Exam Narrative: Patient is comfortable, NAD HEENT: eyes are clear and none icteric LUNGS: normal respiratory effort ABD: not distend
[2022-06-01 17:09] LABS: Glucose Point of Care 147 mg/dl (65-105)
[2022-06-01] MEDS: traZODone HCL 50 MG TABLET PO (20:49)
[2022-06-01 23:45] LABS: Glucose Point of Care 209 mg/dl (65-105)
[2022-06-02] MEDS: GABAPENTIN 300 MG CAPSULE 600 MG PO ×3 (05:31→20:33)
[2022-06-02] MEDS: metroNIDAZOLE 500 MG/ISO 100ML 500 MG/100 ML BAG 100 MG IVPB ×3 (05:31→21:11)
[2022-06-02] MEDS: CENTRAL LINE FLUSH 10 ML IV PUSH ×3 (05:31→20:36)
[2022-06-02 05:50] LABS: Hematocrit 35.6 % (42.0-52.0); Hemoglobin 11.8 g/dL (14.0-18.0); Mean Corpuscular HGB Conc 33.1 g/dl (32-36); Mean Corpuscular Volume 87.5 fl (80-100); Platelet Count Result 247 k/mm3 (150-375); Red Blood Count 4.07 M/mm3 (4.6-6.20); Red Cell Distribution Width 12.6 % (11.5-14.5); White Blood Count 6.4 K/mm3 (4.5-10.0)
[2022-06-02 06:06] VITALS: BP 132/71; PULSE 80; TEMP 36.7; O2SAT 98
[2022-06-02 06:11] LABS: Anion Gap 7 mmol/L (8-16); Blood Urea Nitrogen 16 mg/dL (9-20); Calcium 8.8 mg/dL (8.4-10.2); Carbon Dioxide 29 mmol/L (22-30); Chloride 101 mmol/L (98-107); Estimated CRCL calculation 58 ml/min; Estimated Glomerular Filt Rate > 60; Glucose 165 mg/dL (65-110); Potassium 4.6 mmol/L (3.4-5.0); Sodium 137 mmol/L (137-145)
[2022-06-02 07:48] LABS: Glucose Point of Care 151 mg/dl (65-105)
[2022-06-02 08:00] VITALS: PULSE 80; RESP 18; O2SAT 98
--- NOTE | 2022-06-02 08:08 | PM.IMPN ---
Progress Note: A&P Assessment and Plan (1) Osteomyelitis of foot, left, acute: Code(s): M86.172 - Other acute osteomyelitis, left ankle and foot Status: Acute Assessment and Plan: 05/29 wcx with MSSA. POD#2 from excision of osteomyelitis of left foot with excisional debridement of diabetic foot ulcer to muscle layer. 05/31 wcx with gram negative rods and gram positive cocci. Awaiting speciation and sensitivities from operating room wound culture. -If the debridement included removal of all infected bone, antibiotics duration could be two weeks -Appreciate recommendations from Orthopedic Surgery -Continue vancomycin, metronidazole and cefepime for now (2) Hypertension: Code(s): I10 - Essential (primary) hypertension Status: Acute Assessment and Plan: -hydralazine p.r.n. (3) Diabetic peripheral neuropathy: Code(s): E11.42 - Type 2 diabetes mellitus with diabetic polyneuropathy Status: Acute Assessment and Plan: -continue gabapentin (4) Type 2 diabetes mellitus: Qualifiers: Diabetes mellitus longterm insulin use: without longterm use Diabetes mellitus complication status: with neurologic complications Diabetes mellitus complication detail: with polyneuropathy Qualified Code(s): E11.42 - Type 2 diabetes mellitus with diabetic polyneuropathy Code(s): E11.9 - Type 2 diabetes mellitus without complications Status: Acute Assessment and Plan: Hemoglobin a1c 7.6 with BG 150s-200 yesterday. Takes metformin and glimepiride at home. -Continue glimepiride -Holding metformin (5) Anxiety: Code(s): F41.9 - Anxiety disorder, unspecified Status: Acute Assessment and Plan: -continue with trazodone Subjective Date/time seen: 06/02/22 08:08 Patient says he feels great. Walked around the unit twice with physical therapy yesterday. Denies worsening foot pain, fever, chills. Review of Systems Constitutional: Comments: no fever or chills Exam Narrative: GENERAL: NAD, cooperative HEENT: Normocephalic, atraumatic, anicteric, nares clear, oropharynx moist and clear, dentition normal NECK: Supple CV: Normal S1, S2, RRR, No MRG RESP: CTAB, Normal work of breathing. EXTREMITIES: LLE with foot wound dressing c/d/i. SKIN: warm, dry and intact. NEURO: CN 2-12 grossly intact. Objective Data Vital Signs Vital Signs: Vital Signs - 24 hr 06/01/22 11:55 06/01/22 20:00 06/02/22 06:06 Temperature 36.3 C L 36.7 C Pulse Rate 84 80 Respiratory Rate 18 Blood Pressure 133/74 132/71 Pulse Oximetry 97 98 Oxygen Delivery Room Air Intake/Output Intake/Output: Intake & Output 05/30/22 05/31/22 06/01/22 06/02/22 23:59 23:59 23:59 23:59 Intake Total 2220 2877 3210 300 Output Total 1970 1600 1800 1150 Balance 250 1277 1410 -850 Meds/Results Medications: Active Medications Generic Name Dose Route Start Last Admin Trade Name Freq PRN Reason Stop Dose Admin Hydrocodone Bitart/Acetaminophen 1 tab 05/28/22 13:49 06/01/22 18:12 Hydrocodone/Acetaminophen (*Crx) 5-325 Mg Tablet PO 1 tab Q4H PRN Administration Moderate Pain (4-6) Albuterol 2 puff 05/28/22 13:58 Albuterol Sulfate (*Sp) Aerosol 1 Puff INHALATION Q6HRT PRN Shortness Of Breath Dextrose 12.5 gm 05/28/22 13:57 Dextrose 50% 25 Gm/50 Ml Syringe IV PUSH PRN PRN Hypoglycemia Protocol Gabapentin 600 mg 05/28/22 14:00 06/02/22 05:31 Gabapentin 300 Mg Capsule PO 600 mg Q8HR KAYCE Administration Glimepiride 1 mg 05/29/22 08:00 06/01/22 08:48 Glimepiride 1 Mg Tablet PO 1 mg DAILY@0800 KAYCE Administration Glucagon 1 mg 05/28/22 13:57 Glucagon For Inj 1 Mg Vial IM PRN PRN Hypoglycemia Protocol Glucose 15 gm 05/28/22 13:57 Glucose Oral Gel 15 Gm Of Glucse In 37.5 Gm Tube PO PRN PRN Hypoglycemia Protocol Hydral
--- NOTE | 2022-06-02 08:42 | PCOTNOTE ---
Attempted to see patient this am, however patient declined. Pt reported just getting back to bed. I'll maybe do that later, but right now I'm just chillin'.
--- NOTE | 2022-06-02 08:47 | PCNFU ---
Nutrition Follow-Up Complete: Increased protein energy needs related to wound healing as evidenced by wound to foot. Goal: Adequate PO intake at least 75% meals - Goal being met Pt current nutrition is Consistent carb diabetic diet. Nutrition recommendation: Continue current diet and care plan Last recorded weight is 96.7 kg. Bowel Motility: No BM charted Labs Reviewed:Hgb 11.8, Hct 35.6 Meds Noted: Cefepime, vanco, flagyl Skin: Surgical wound to foot from debridement Additional Notes: No weight loss, appetite is good. Drinking some Glucerna. Continue current diet Monitor intakes, weights, wound healing, labs Follow up in 7 days
[2022-06-02] MEDS: SENNA/DOCUSATE SODIUM TABLET 2 TAB PO (09:29)
[2022-06-02] MEDS: GLIMEPIRIDE 1 MG TABLET PO (09:29)
[2022-06-02] MEDS: SILVERGEL (ELTA) 45 ML 1 APPLIC TOPICAL (09:29)
[2022-06-02] MEDS: polyethylene glycoL 3350 17 GM POWD.PACK PO (09:29)
--- NOTE | 2022-06-02 11:41 | PM.PNORT ---
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 WB on Heel. Post Op Shoe. Dressing change. Daily dressing change with adaptic over incision lines, ABD and cover dry. IV antibiotics. Intraoperative cultures and pathology pending to determine need for alf antibiotics. Dispo: Home with Home Health, possible IV infusion pending results as above. (2) Osteomyelitis of foot, left, acute: Code(s): M86.172 - Other acute osteomyelitis, left ankle and foot Status: Acute (3) Type 2 diabetes mellitus: Qualifiers: Diabetes mellitus alf insulin use: without long term care social worker use Diabetes mellitus complication status: with neurologic complications Diabetes mellitus complication detail: with polyneuropathy Qualified Code(s): E11.42 - Type 2 diabetes mellitus with diabetic polyneuropathy Code(s): E11.9 - Type 2 diabetes mellitus without complications Status: Acute Assessment and Plan: Patient does not check BG levels at home and refuses to follow DM Diet. Would benefit from DM Nurse Educator before discharge. Subjective Subjective Date/Time Seen: 06/02/22 11:41 Post Op day: 2 Principal diagnosis: Left foot osteomyelitis with diabetic foot ulcer Interval history: patient awake and alert. States no pain. Overall feeling better. Exam Const: General: comfortable and no acute distress Resp: Effort & Inspection: normal respiratory effort Cardio: Rate: regular rate Rhythm: regular rhythm Extrem: Other: Left foot dressing was changed. Dorsal incision with sanguinous drainage. Erythema improved. Swelling improved. Plantar ulcer well approximated. Negative Homans sign. Remaining toes with good capillary refill. Psych: Mental Status: mental status grossly normal Objective Data Vital Signs Vital Signs: Vital Signs - 24 hr 06/01/22 11:55 06/01/22 20:00 06/02/22 06:06 Temperature 97.3 F L 98.1 F Pulse Rate 84 80 Respiratory Rate 18 Blood Pressure 133/74 132/71 Pulse Oximetry 97 98 Oxygen Delivery Room Air 06/02/22 08:00 Temperature Pulse Rate 80 Respiratory Rate 18 Blood Pressure Pulse Oximetry 98 Oxygen Delivery Room Air Intake/Output Intake/Output: Intake & Output 05/30/22 05/31/22 06/01/22 06/02/22 23:59 23:59 23:59 23:59 Intake Total 2220 2877 3210 800 Output Total 1970 1600 1800 1150 Balance 250 1277 1410 -350 Meds/Results Medications: Active Medications Generic Name Dose Route Start Last Admin Trade Name Freq PRN Reason Stop Dose Admin Hydrocodone Bitart/Acetaminophen 1 tab 05/28/22 13:49 06/01/22 18:12 Hydrocodone/Acetaminophen (*Crx) 5-325 Mg Tablet PO 1 tab Q4H PRN Administration Moderate Pain (4-6) Albuterol 2 puff 05/28/22 13:58 Albuterol Sulfate (*Sp) Aerosol 1 Puff INHALATION Q6HRT PRN Shortness Of Breath Dextrose 12.5 gm 05/28/22 13:57 Dextrose 50% 25 Gm/50 Ml Syringe IV PUSH PRN PRN Hypoglycemia Protocol Gabapentin 600 mg 05/28/22 14:00 06/02/22 05:31 Gabapentin 300 Mg Capsule PO 600 mg Q8HR KAYCE Administration Glimepiride 1 mg 05/29/22 08:00 06/02/22 09:29 Glimepiride 1 Mg Tablet PO 1 mg DAILY@0800 KAYCE Administration Glucagon 1 mg 05/28/22 13:57 Glucagon For Inj 1 Mg Vial IM PRN PRN Hypoglycemia
[2022-06-02 11:44] LABS: Glucose Point of Care 244 mg/dl (65-105)
[2022-06-02] MEDS: INSULIN ASPART (*BKC) 100 UNITS/ML SUB-Q (12:31)
[2022-06-02 14:06] VITALS: BP 156/70; PULSE 81; RESP 22; TEMP 36; O2SAT 100
[2022-06-02 17:03] LABS: Glucose Point of Care 138 mg/dl (65-105)
[2022-06-02] MEDS: traZODone HCL 50 MG TABLET PO (20:32)
[2022-06-02 21:53] VITALS: BP 144/67; PULSE 81; RESP 18; TEMP 36.4; O2SAT 95
[2022-06-03] MEDS: metroNIDAZOLE 500 MG/ISO 100ML 500 MG/100 ML BAG 100 MG IVPB ×3 (05:44→21:39)
[2022-06-03] MEDS: GABAPENTIN 300 MG CAPSULE 600 MG PO ×3 (05:45→21:39)
[2022-06-03] MEDS: CENTRAL LINE FLUSH 10 ML IV PUSH ×2 (05:46→15:37)
[2022-06-03 05:48] VITALS: BP 123/68; PULSE 74; RESP 18; TEMP 36.1; O2SAT 96
[2022-06-03 06:07] LABS: Hematocrit 35.9 % (42.0-52.0); Hemoglobin 11.8 g/dL (14.0-18.0); Mean Corpuscular HGB Conc 32.9 g/dl (32-36); Mean Corpuscular Hemoglobin 29.7 pg (26-34); Mean Corpuscular Volume 90.4 fl (80-100); Mean Platelet Volume 10.2 fl (7.4-10.4); Platelet Count Result 237 k/mm3 (150-375); Red Blood Count 3.97 M/mm3 (4.6-6.20); Red Cell Distribution Width 12.7 % (11.5-14.5); White Blood Count 7.1 K/mm3 (4.5-10.0)
[2022-06-03 06:24] LABS: Anion Gap 8 mmol/L (8-16); Blood Urea Nitrogen 19 mg/dL (9-20); Calcium 8.8 mg/dL (8.4-10.2); Carbon Dioxide 27 mmol/L (22-30); Chloride 102 mmol/L (98-107); Estimated CRCL calculation 58 ml/min; Estimated Glomerular Filt Rate > 60; Glucose 151 mg/dL (65-110); Potassium 4.6 mmol/L (3.4-5.0); Sodium 137 mmol/L (137-145)
[2022-06-03 07:44] LABS: Glucose Point of Care 190 mg/dl (65-105)
--- NOTE | 2022-06-03 07:52 | PM.IMPN ---
Progress Note: A&P Assessment and Plan (1) Osteomyelitis of foot, left, acute: Code(s): M86.172 - Other acute osteomyelitis, left ankle and foot Status: Acute Assessment and Plan: 05/29 wcx with MSSA. POD#2 from excision of osteomyelitis of left foot with excisional debridement of diabetic foot ulcer to muscle layer. 05/31 wcx with gram negative rods and gram positive cocci. Awaiting speciation and sensitivities from operating room wound culture. -If the debridement included removal of all infected bone, antibiotics duration could be two weeks -Appreciate recommendations from Orthopedic Surgery -Continue vancomycin, metronidazole and cefepime for now (2) Hypertension: Code(s): I10 - Essential (primary) hypertension Status: Acute Assessment and Plan: -hydralazine p.r.n. (3) Diabetic peripheral neuropathy: Code(s): E11.42 - Type 2 diabetes mellitus with diabetic polyneuropathy Status: Acute Assessment and Plan: -continue gabapentin (4) Type 2 diabetes mellitus: Qualifiers: Diabetes mellitus custodial insulin use: without custodial use Diabetes mellitus complication status: with neurologic complications Diabetes mellitus complication detail: with polyneuropathy Qualified Code(s): E11.42 - Type 2 diabetes mellitus with diabetic polyneuropathy Code(s): E11.9 - Type 2 diabetes mellitus without complications Status: Acute Assessment and Plan: Hemoglobin a1c 7.6 with BG 150s-200 yesterday. Takes metformin and glimepiride at home. -Continue glimepiride -Holding metformin (5) Anxiety: Code(s): F41.9 - Anxiety disorder, unspecified Status: Acute Assessment and Plan: -continue with trazodone (6) Rash: Code(s): R21 - Rash and other nonspecific skin eruption Status: Acute Assessment and Plan: May be eczema but will trial benadryl cream for now. If this does not work, will try triamcinolone. Does not appear to be fungal. Subjective Date/time seen: 06/03/22 07:52 Patient says his ankle is very itchy. Says prior to hospitalization he was given a cream that started with a T that can be used to treat foot fungus. Says the rash has returned during this hospitalization. Unsure of if this is eczema. Review of Systems Integumentary/Breasts: Skin/Breast: Reports pruritus, Reports rash and Denies skin pain Exam Narrative: GENERAL: NAD, cooperative HEENT: Normocephalic, atraumatic, anicteric, nares clear, oropharynx moist and clear, dentition normal NECK: Supple CV: Normal S1, S2, RRR, No MRG RESP: CTAB, Normal work of breathing. EXTREMITIES: LLE with foot wound dressing c/d/i. Left ankle with maculopapular, erythematous, rough rash just above the kerlix dressing on the foot. No drainage or bleeding. SKIN: warm, dry and intact. NEURO: CN 2-12 grossly intact. Objective Data Vital Signs Vital Signs: Vital Signs - 24 hr 06/02/22 08:00 06/02/22 14:06 06/02/22 20:00 Temperature 36.0 C L Pulse Rate 80 81 Respiratory Rate 18 22 H Blood Pressure 156/70 H Pulse Oximetry 98 100 Oxygen Delivery Room Air Room Air 06/02/22 21:53 06/03/22 05:48 Temperature 36.4 C 36.1 C L Pulse Rate 81 74 Respiratory Rate 18 18 Blood Pressure 144/67 H 123/68 Pulse Oximetry 95 96 Oxygen Delivery Intake/Output Intake/Output: Intake & Output 05/31/22 06/01/22 06/02/22 06/03/22 23:59 23:59 23:59 23:59 Intake Total 2877 3210 2625 400 Output Total 1600 1800 2650 1200 Balance 1277 1410 -25 -800 Meds/Results Medications: Active Medications Generic Name Dose Route Start Last Admin Trade Name Freq PRN Reason Stop Dose Admin Hydrocodone Bitart/Acetaminophen 1 tab 05/28/22 13:49 06/01/22 18:12 Hydrocodone/Acetaminophen (*Crx) 5-325 Mg Tablet PO 1 tab Q4H PRN Administration Moderate Pain (4-6) Albuterol 2 puff 05/28/22 13:58 Albut
[2022-06-03 08:00] VITALS: PULSE 74; RESP 18; O2SAT 95
[2022-06-03] MEDS: GLIMEPIRIDE 1 MG TABLET PO (08:45)
[2022-06-03] MEDS: SENNA/DOCUSATE SODIUM TABLET 2 TAB PO (08:45)
[2022-06-03] MEDS: polyethylene glycoL 3350 17 GM POWD.PACK PO (08:45)
[2022-06-03] MEDS: SILVERGEL (ELTA) 45 ML 1 APPLIC TOPICAL (08:45)
[2022-06-03] MEDS: ENOXAPARIN 40 MG/0.4 ML SYRINGE SUB-Q (08:45)
--- NOTE | 2022-06-03 09:31 | PM.PNORT ---
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 WB on Heel. Post Op Shoe. Dressing change. Daily dressing change with adaptic over incision lines, ABD and cover dry. IV antibiotics. Intraoperative cultures pending. Pathology reveals acute osteomyelitis. Awaiting cultures to determine antibiotic choice for spa concierge IV antibiotics. Appreciate Pharm ID input. Dispo: Home with Home Health, IV infusion pending final results as above. (2) Osteomyelitis of foot, left, acute: Code(s): M86.172 - Other acute osteomyelitis, left ankle and foot Status: Acute (3) Type 2 diabetes mellitus: Qualifiers: Diabetes mellitus group home insulin use: without spa concierge use Diabetes mellitus complication status: with neurologic complications Diabetes mellitus complication detail: with polyneuropathy Qualified Code(s): E11.42 - Type 2 diabetes mellitus with diabetic polyneuropathy Code(s): E11.9 - Type 2 diabetes mellitus without complications Status: Acute Assessment and Plan: Patient does not check BG levels at home and refuses to follow DM Diet. Would benefit from DM Nurse Educator before discharge. Subjective Subjective Date/Time Seen: 06/03/22 09:31 Post Op day: 3 Principal diagnosis: Left foot osteomyelitis with diabetic foot ulcer Interval history: Patient doing well. No new concerns. Pain well controlled. Review of Systems Review of Systems: All systems reviewed & are unremarkable except as noted in HPI and below (HPI ) Exam Const: General: comfortable and no acute distress Resp: Effort & Inspection: normal respiratory effort Cardio: Rate: regular rate Rhythm: regular rhythm Extrem: Other: Left foot dressing was changed. Dorsal incision with sanguinous drainage. Erythema improved. Swelling improved. Plantar ulcer well approximated. Negative Homans sign. Remaining toes with good capillary refill. Psych: Mental Status: mental status grossly normal Objective Data Vital Signs Vital Signs: Vital Signs - 24 hr 06/02/22 14:06 06/02/22 20:00 06/02/22 21:53 Temperature 36.0 C L 36.4 C Pulse Rate 81 81 Respiratory Rate 22 H 18 Blood Pressure 156/70 H 144/67 H Pulse Oximetry 100 95 Oxygen Delivery Room Air 06/03/22 05:48 Temperature 36.1 C L Pulse Rate 74 Respiratory Rate 18 Blood Pressure 123/68 Pulse Oximetry 96 Oxygen Delivery Intake/Output Intake/Output: Intake & Output 05/31/22 06/01/22 06/02/22 06/03/22 23:59 23:59 23:59 23:59 Intake Total 2877 3210 2625 876 Output Total 1600 1800 2650 1525 Balance 1127 0491 -19 -183 Meds/Results Medications: Active Medications Generic Name Dose Route Start Last Admin Trade Name Freq PRN Reason Stop Dose Admin Hydrocodone Bitart/Acetaminophen 1 tab 05/28/22 13:49 06/01/22 18:12 Hydrocodone/Acetaminophen (*Crx) 5-325 Mg Tablet PO 1 tab Q4H PRN Administration Moderate Pain (4-6) Albuterol 2 puff 05/28/22 13:58 Albuterol Sulfate (*Sp) Aerosol 1 Puff INHALATION Q6HRT PRN Shortness Of Breath Dextrose 12.5 gm 05/28/22 13:57 Dextrose 50% 25 Gm/50 Ml Syringe IV PUSH PRN PRN Hypoglycemia Protocol Enoxaparin Sodium 40 mg 06/03/22 09:00 06/03/22 08:45 Enoxaparin 40 Mg/0.4 Ml Syringe SUB-Q 40 mg DAILY KAYCE Admini
--- NOTE | 2022-06-03 09:40 | PCOTNOTE ---
Attempted to see patient this AM, patient stated well I really don't want to get up, they just changed my bandage. Attempted to educate patient on benefits of Occupational Therapy, patient continued to decline services.
[2022-06-03 11:02] VITALS: O2SAT 95
[2022-06-03 11:40] LABS: Glucose Point of Care 206 mg/dl (65-105)
[2022-06-03] MEDS: INSULIN ASPART (*BKC) 100 UNITS/ML SUB-Q (12:52)
--- NOTE | 2022-06-03 13:48 | PCPTNOTE ---
Patient declined treatment this session stating has has no therapy needs at this time. Patient states he is transferring and ambulating independently in the room. I educated patient on the importance of maintaining PWB through L heel with post-op shoe on with transfers, gait and stair climbing.
[2022-06-03 13:51] VITALS: BP 146/82; PULSE 79; RESP 16; TEMP 36.6; O2SAT 98
[2022-06-03 16:24] LABS: Glucose Point of Care 132 mg/dl (65-105)
[2022-06-03] MEDS: DIPHENHYDRAMINE 1%/ZINC 0.1% CREAM 30 GM TUBE 1 APPLIC TOPICAL ×2 (17:45→21:39)
[2022-06-03 19:54] LABS: Glucose Point of Care 192 mg/dl (65-105)
[2022-06-03 21:05] VITALS: BP 126/79; PULSE 79; RESP 16; TEMP 36.6; O2SAT 98
[2022-06-03] MEDS: traZODone HCL 50 MG TABLET PO (21:39)
[2022-06-04] MEDS: GABAPENTIN 300 MG CAPSULE 600 MG PO ×3 (05:41→21:04)
[2022-06-04] MEDS: metroNIDAZOLE 500 MG/ISO 100ML 500 MG/100 ML BAG 100 MG IVPB ×3 (05:41→21:54)
[2022-06-04] MEDS: CENTRAL LINE FLUSH 10 ML IV PUSH ×3 (05:41→21:05)
[2022-06-04 05:56] VITALS: BP 109/78; PULSE 84; RESP 18; TEMP 36.9; O2SAT 100
[2022-06-04 06:08] LABS: Hematocrit 37.4 % (42.0-52.0); Hemoglobin 12.3 g/dL (14.0-18.0); Mean Corpuscular HGB Conc 32.9 g/dl (32-36); Mean Corpuscular Hemoglobin 29.6 pg (26-34); Mean Corpuscular Volume 89.9 fl (80-100); Platelet Count Result 232 k/mm3 (150-375); Red Blood Count 4.16 M/mm3 (4.6-6.20)
[2022-06-04 06:22] LABS: Anion Gap 12 mmol/L (8-16); Blood Urea Nitrogen 20 mg/dL (9-20); Carbon Dioxide 30 mmol/L (22-30); Chloride 99 mmol/L (98-107); Estimated CRCL calculation 58 ml/min; Estimated Glomerular Filt Rate > 60; Glucose 185 mg/dL (65-110); Potassium 4.4 mmol/L (3.4-5.0); Sodium 141 mmol/L (137-145)
[2022-06-04] MEDS: polyethylene glycoL 3350 17 GM POWD.PACK PO (08:20)
[2022-06-04] MEDS: SENNA/DOCUSATE SODIUM TABLET 2 TAB PO ×2 (08:20→17:44)
[2022-06-04] MEDS: GLIMEPIRIDE 1 MG TABLET PO (08:20)
[2022-06-04] MEDS: ENOXAPARIN 40 MG/0.4 ML SYRINGE SUB-Q (08:21)
[2022-06-04] MEDS: DIPHENHYDRAMINE 1%/ZINC 0.1% CREAM 30 GM TUBE 1 APPLIC TOPICAL ×4 (08:22→21:06)
--- NOTE | 2022-06-04 08:55 | PM.IMPN ---
Progress Note: A&P Assessment and Plan (1) Osteomyelitis of foot, left, acute: Code(s): M86.172 - Other acute osteomyelitis, left ankle and foot Status: Acute Assessment and Plan: 05/29 wcx with MSSA. POD#2 from excision of osteomyelitis of left foot with excisional debridement of diabetic foot ulcer to muscle layer. 05/31 wcx with streptococcus anginosus and gram positive cocci. Patient discussed with orthopedic surgery and clean margins without infection were likely not obtained. Patient will need six weeks of antibiotics. -Wound management per Orthopedic Surgery -Continue vancomycin, metronidazole and cefepime for now (2) Hypertension: Code(s): I10 - Essential (primary) hypertension Status: Acute Assessment and Plan: -hydralazine p.r.n. (3) Diabetic peripheral neuropathy: Code(s): E11.42 - Type 2 diabetes mellitus with diabetic polyneuropathy Status: Acute Assessment and Plan: -continue gabapentin (4) Type 2 diabetes mellitus: Qualifiers: Diabetes mellitus fdc insulin use: without ferry terminal agent use Diabetes mellitus complication status: with neurologic complications Diabetes mellitus complication detail: with polyneuropathy Qualified Code(s): E11.42 - Type 2 diabetes mellitus with diabetic polyneuropathy Code(s): E11.9 - Type 2 diabetes mellitus without complications Status: Acute Assessment and Plan: Hemoglobin a1c 7.6. Takes metformin and glimepiride at home. -Continue glimepiride -Holding metformin -SSI with accuchecks (5) Anxiety: Code(s): F41.9 - Anxiety disorder, unspecified Status: Acute Assessment and Plan: -continue with trazodone (6) Rash: Code(s): R21 - Rash and other nonspecific skin eruption Status: Acute Assessment and Plan: May be eczema but will trial benadryl cream for now. If this does not work, will try triamcinolone. Does not appear to be fungal. -Continue benadryl cream Subjective Date/time seen: 06/04/22 08:55 Patient says he feels fine. Says he took his dressing off his foot before showering. Review of Systems Musculoskeletal: Musculoskeletal: Denies arthralgias Exam Narrative: GENERAL: NAD, cooperative HEENT: Normocephalic, atraumatic, anicteric, nares clear, oropharynx moist and clear, dentition normal NECK: Supple CV: Normal S1, S2, RRR, No MRG RESP: CTAB, Normal work of breathing. EXTREMITIES: LLE with foot wound dressing c/d/i. Left ankle with maculopapular, erythematous, rough rash just above the kerlix dressing on the foot. No drainage or bleeding. SKIN: warm, dry and intact. NEURO: CN 2-12 grossly intact. Objective Data Vital Signs Vital Signs: Vital Signs - 24 hr 06/03/22 11:02 06/03/22 13:51 06/03/22 21:05 Temperature 36.6 C 36.6 C Pulse Rate 79 79 Respiratory Rate 16 16 Blood Pressure 146/82 H 126/79 Pulse Oximetry 95 98 98 Oxygen Delivery Room Air 06/03/22 20:00 06/04/22 05:56 Temperature 36.9 C Pulse Rate 84 Respiratory Rate 18 Blood Pressure 109/78 Pulse Oximetry 100 Oxygen Delivery Room Air Intake/Output Intake/Output: Intake & Output 06/01/22 06/02/22 06/03/22 06/04/22 23:59 23:59 23:59 23:59 Intake Total 3210 2625 2656 650 Output Total 1800 2650 3500 1150 Balance 1410 -25 -844 -500 Meds/Results Medications: Active Medications Generic Name Dose Route Start Last Admin Trade Name Freq PRN Reason Stop Dose Admin Hydrocodone Bitart/Acetaminophen 1 tab 05/28/22 13:49 06/01/22 18:12 Hydrocodone/Acetaminophen (*Crx) 5-325 Mg Tablet PO 1 tab Q4H PRN Administration Moderate Pain (4-6) Albuterol 2 puff 05/28/22 13:58 Albuterol Sulfate (*Sp) Aerosol 1 Puff INHALATION Q6HRT PRN Shortness Of Breath Dextrose 12.5 gm 05/28/22 13:57 Dextrose 50% 25 Gm/50 Ml Syringe IV PUSH PRN PRN
--- NOTE | 2022-06-04 10:06 | PM.PNORT ---
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 WB on Heel. Post Op Shoe. Dressing change. Daily dressing change with adaptic over incision lines, ABD and cover dry. IV antibiotics. Intraoperative cultures pending. Pathology reveals acute osteomyelitis. Awaiting cultures to determine antibiotic choice for continuous churn buttermaker IV antibiotics. Appreciate Pharm ID input. Dispo: Home with Home Health, IV infusion pending final results as above. (2) Osteomyelitis of foot, left, acute: Code(s): M86.172 - Other acute osteomyelitis, left ankle and foot Status: Acute (3) Type 2 diabetes mellitus: Qualifiers: Diabetes mellitus usp insulin use: without continuous churn buttermaker use Diabetes mellitus complication status: with neurologic complications Diabetes mellitus complication detail: with polyneuropathy Qualified Code(s): E11.42 - Type 2 diabetes mellitus with diabetic polyneuropathy Code(s): E11.9 - Type 2 diabetes mellitus without complications Status: Acute Assessment and Plan: Patient does not check BG levels at home and refuses to follow DM Diet. Would benefit from DM Nurse Educator before discharge. Subjective Subjective Date/Time Seen: 06/04/22 10:06 Post Op day: 4 Principal diagnosis: Left foot osteomyelitis with diabetic foot ulcer Interval history: Patient doing well. No new concerns. Pain well controlled. Exam Extrem: Right upper extremity: normal to inspection Left upper extremity: normal to inspection Right lower extremity: ankle Details: normal to inspection, abnormal ROM Details: with range as follows (Ankle dorsiflexion -10 degrees, Plantar flexion 40 degrees, inversion 15 degrees, [id number] degress) and other (Good stability all directions); no tenderness, no swelling and no ecchymosis and foot Details: abnormal to inspection, abnormal ROM of toe (Hallux MTP dorsieflexion 40, planterflexion 20), vascular exam Details: dorsalis pedis pulse present and normal capillary refill, tendon exam Details: active flexion abnormal and active extension abnormal, motor-sensory exam Details: two point discrimination abnormal Location: in all toes and light-touch abnormal Location: in all toes and other (Hallux Metatarsophalangeal motion 20 degrees dorisiflexion 10 degrees, plantar flexion ) Left lower extremity: ankle Details: normal to inspection and abnormal ROM Details: with range as follows (Ankle dorsiflexion -10, planter flexion 40, inversion 15, eversion 15); no tenderness and no swelling and foot Details: normal capillary refill, abnormal to inspection Details: 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 Probes to bone. Sanguinous drainage. 2.8 cm depth. 4 mm x 4 mm dorsal ulceration with surrounding erythema and sanguinous drainage.); no tenderness and no crepitus Other: Left foot dressing changed. Dorsal incision with sanguinous drainage. Erythema improved. Swelling improved. Plantar ulcer well approximated. Negative Homans sign. Remaini
[2022-06-04 11:36] LABS: Glucose Point of Care 211 mg/dl (65-105)
--- NOTE | 2022-06-04 11:43 | PCOTNOTE ---
Attempted to see patient, patient refused OT. Patient reports walking in room, maintaining PWB with LLE and wearing post op shoe, and just showering and sees no need for OT. Patient agreeable to d/c from OT.
[2022-06-04] MEDS: INSULIN ASPART (*BKC) 100 UNITS/ML SUB-Q (12:25)
[2022-06-04 14:00] VITALS: BP 151/75; PULSE 86; RESP 20; TEMP 36.5; O2SAT 100
[2022-06-04 16:25] LABS: Glucose Point of Care 127 mg/dl (65-105)
[2022-06-04 18:17] LABS: Vancomycin Trough 16.3 ug/mL (10.0-20.0)
[2022-06-04 20:29] VITALS: BP 131/68; PULSE 84; RESP 20; TEMP 36.5; O2SAT 97
[2022-06-04] MEDS: traZODone HCL 50 MG TABLET PO (21:05)
[2022-06-04 21:33] LABS: Glucose Point of Care 245 mg/dl (65-105)
[2022-06-05] MEDS: GABAPENTIN 300 MG CAPSULE 600 MG PO ×3 (05:20→22:09)
[2022-06-05] MEDS: CENTRAL LINE FLUSH 10 ML IV PUSH ×3 (05:22→22:09)
[2022-06-05 05:29] LABS: Hematocrit 34.8 % (42.0-52.0); Hemoglobin 11.4 g/dL (14.0-18.0); Mean Corpuscular HGB Conc 32.8 g/dl (32-36); Mean Corpuscular Hemoglobin 28.9 pg (26-34); Mean Corpuscular Volume 88.3 fl (80-100); Mean Platelet Volume 10.3 fl (7.4-10.4); Platelet Count Result 200 k/mm3 (150-375); Red Blood Count 3.94 M/mm3 (4.6-6.20); Red Cell Distribution Width 12.7 % (11.5-14.5); White Blood Count 5.3 K/mm3 (4.5-10.0)
[2022-06-05 05:38] LABS: Anion Gap 11 mmol/L (8-16); Blood Urea Nitrogen 20 mg/dL (9-20); Calcium 8.6 mg/dL (8.4-10.2); Carbon Dioxide 28 mmol/L (22-30); Chloride 101 mmol/L (98-107); Estimated CRCL calculation 58 ml/min; Estimated Glomerular Filt Rate > 60; Glucose 175 mg/dL (65-110); Potassium 4.4 mmol/L (3.4-5.0); Sodium 140 mmol/L (137-145)
[2022-06-05 05:52] VITALS: BP 126/78; PULSE 66; RESP 20; TEMP 36.4; O2SAT 100
[2022-06-05] MEDS: metroNIDAZOLE 500 MG/ISO 100ML 500 MG/100 ML BAG 100 MG IVPB ×3 (05:52→22:09)
[2022-06-05 08:03] LABS: Glucose Point of Care 154 mg/dl (65-105)
--- NOTE | 2022-06-05 08:12 | PCOTNOTE ---
D/C pt. from occupational therapy services. Pt. has refused therapy services 3 consecutive days and in independently ambulating in room with nursing approval.
--- NOTE | 2022-06-05 08:21 | PM.IMPN ---
Progress Note: A&P Assessment and Plan (1) Osteomyelitis of foot, left, acute: Code(s): M86.172 - Other acute osteomyelitis, left ankle and foot Status: Acute Assessment and Plan: 05/29 wcx with MSSA. 05/31/22 had excision of osteomyelitis of left foot with excisional debridement of diabetic foot ulcer to muscle layer. 05/31 wcx with streptococcus anginosus and gram positive cocci. Patient discussed with orthopedic surgery and clean margins without infection were likely not obtained. Also orthopedic had concerns about soft tissue infection, so patient will continue intravenous antibiotics through Tuesday, 06/07. Patient will need six weeks of antibiotics. -Wound management per Orthopedic Surgery -Continue vancomycin, metronidazole and cefepime (2) Hypertension: Code(s): I10 - Essential (primary) hypertension Status: Acute Assessment and Plan: -hydralazine p.r.n. (3) Diabetic peripheral neuropathy: Code(s): E11.42 - Type 2 diabetes mellitus with diabetic polyneuropathy Status: Acute Assessment and Plan: -continue gabapentin (4) Type 2 diabetes mellitus: Qualifiers: Diabetes mellitus long-term insulin use: without termination clerk use Diabetes mellitus complication status: with neurologic complications Diabetes mellitus complication detail: with polyneuropathy Qualified Code(s): E11.42 - Type 2 diabetes mellitus with diabetic polyneuropathy Code(s): E11.9 - Type 2 diabetes mellitus without complications Status: Acute Assessment and Plan: Hemoglobin a1c 7.6. Takes metformin and glimepiride at home. -Continue glimepiride -Holding metformin -SSI with accuchecks (5) Anxiety: Code(s): F41.9 - Anxiety disorder, unspecified Status: Acute Assessment and Plan: -continue with trazodone (6) Rash: Code(s): R21 - Rash and other nonspecific skin eruption Status: Acute Assessment and Plan: Itchng improved with benadryl but rash persists. -Triamcinolone 0.1% BID -Continue benadryl cream Subjective Date/time seen: 06/05/22 08:21 Reports benadryl cream relieves the itching, but says the rash has not resolved. Says he needs hydrocortisone. Says at rest he has no foot pain but does have discomfort if pressure is applied to the foot. Review of Systems Integumentary/Breasts: Skin/Breast: Denies pruritus and Reports rash Exam Narrative: GENERAL: NAD, cooperative HEENT: Normocephalic, atraumatic, anicteric, nares clear, oropharynx moist and clear, dentition normal NECK: Supple CV: Normal S1, S2, RRR, No MRG RESP: CTAB, Normal work of breathing. EXTREMITIES: LLE with foot wound dressing c/d/i. Left ankle with maculopapular, erythematous, rough rash just above the kerlix dressing on the foot. No drainage or bleeding. SKIN: warm, dry and intact. NEURO: CN 2-12 grossly intact. Objective Data Vital Signs Vital Signs: Vital Signs - 24 hr 06/04/22 14:00 06/04/22 20:29 06/04/22 20:00 Temperature 36.5 C 36.5 C Pulse Rate 86 84 Respiratory Rate 20 20 Blood Pressure 151/75 H 131/68 Pulse Oximetry 100 97 Oxygen Delivery Room Air 06/05/22 05:52 Temperature 36.4 C L Pulse Rate 66 Respiratory Rate 20 Blood Pressure 126/78 Pulse Oximetry 100 Oxygen Delivery Intake/Output Intake/Output: Intake & Output 06/02/22 06/03/22 06/04/22 06/05/22 23:59 23:59 23:59 23:59 Intake Total 2625 2656 4280 150 Output Total 2650 3500 2400 850 Balance -25 -844 1880 -700 Meds/Results Medications: Active Medications Generic Name Dose Route Start Last Admin Trade Name Freq PRN Reason Stop Dose Admin Hydrocodone Bitart/Acetaminophen 1 tab 05/28/22 13:49 06/01/22 18:12 Hydrocodone/Acetaminophen (*Crx) 5-325 Mg Tablet PO 1 tab Q4H PRN Administration Moderate Pain (4-6) Albuterol 2 puff 05/28/22 13:58 Albuterol Sulf
[2022-06-05] MEDS: INSULIN ASPART (*BKC) 100 UNITS/ML SUB-Q ×4 (08:35→16:52)
[2022-06-05] MEDS: SENNA/DOCUSATE SODIUM TABLET 2 TAB PO ×2 (09:08→16:51)
[2022-06-05] MEDS: polyethylene glycoL 3350 17 GM POWD.PACK PO (09:08)
[2022-06-05] MEDS: DIPHENHYDRAMINE 1%/ZINC 0.1% CREAM 30 GM TUBE 1 APPLIC TOPICAL (09:09)
[2022-06-05] MEDS: GLIMEPIRIDE 1 MG TABLET PO (09:09)
[2022-06-05] MEDS: SILVERGEL (ELTA) 45 ML 1 APPLIC TOPICAL (09:09)
[2022-06-05] MEDS: ENOXAPARIN 40 MG/0.4 ML SYRINGE SUB-Q (09:10)
--- NOTE | 2022-06-05 09:55 | PM.PNORT ---
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 WB on Heel. Post Op Shoe. Dressing change. Daily dressing change with adaptic over incision lines, ABD and cover dry. IV antibiotics. Intraoperative cultures= Sensitive Staph. Pathology reveals acute osteomyelitis. Appreciate Pharm ID input. plan is for a total of 1 week of IV antibiotics following surgery with transition to oral antibiotics if wound appears stable. Plan 3 weeks of oral antibiotics for total of 4 week course. Discussed with patient. Verbalizes understanding. continue IV antibiotics, daily dressing changes and wound care. Dispo: Home on oral antibiotics when stable (2) Osteomyelitis of foot, left, acute: Code(s): M86.172 - Other acute osteomyelitis, left ankle and foot Status: Acute Subjective Subjective Date/Time Seen: 06/05/22 09:55 Post Op day: 5 Principal diagnosis: Left foot osteomyelitis with diabetic foot ulcer Interval history: Patient doing well. No new concerns. Pain well controlled. Exam Extrem: Right upper extremity: normal to inspection Left upper extremity: normal to inspection Right lower extremity: ankle Details: normal to inspection, abnormal ROM Details: with range as follows (Ankle dorsiflexion -10 degrees, Plantar flexion 40 degrees, inversion 15 degrees, [id number] degress) and other (Good stability all directions); no tenderness, no swelling and no ecchymosis and foot Details: abnormal to inspection, abnormal ROM of toe (Hallux MTP dorsieflexion 40, planterflexion 20), vascular exam Details: dorsalis pedis pulse present and normal capillary refill, tendon exam Details: active flexion abnormal and active extension abnormal, motor-sensory exam Details: two point discrimination abnormal Location: in all toes and light-touch abnormal Location: in all toes and other (Hallux Metatarsophalangeal motion 20 degrees dorisiflexion 10 degrees, plantar flexion ) Left lower extremity: ankle Details: normal to inspection and abnormal ROM Details: with range as follows (Ankle dorsiflexion -10, planter flexion 40, inversion 15, eversion 15); no tenderness and no swelling and foot Details: normal capillary refill, abnormal to inspection Details: 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 Probes to bone. Sanguinous drainage. 2.8 cm depth. 4 mm x 4 mm dorsal ulceration with surrounding erythema and sanguinous drainage.); no tenderness and no crepitus Other: Left foot dressing changed. Dorsal incision with sanguinous drainage. Erythema improved. Swelling improved. Plantar ulcer well approximated. Negative Homans sign. Remaining toes with good capillary refill. Objective Data Vital Signs Vital Signs: Vital Signs - 24 hr 06/04/22 14:00 06/04/22 20:29 06/04/22 20:00 Temperature 97.7 F 97.7 F Pulse Rate 86 84 Respiratory Rate 20 20 Blood Pressure 151/75 H 131/68 Pulse Oximetry 100 97 Oxygen Delivery Room Air 06/05/22 05:52 Temperature 97.5 F L Pulse Rate 66 Respirator
[2022-06-05 11:40] LABS: Glucose Point of Care 231 mg/dl (65-105)
[2022-06-05] MEDS: TRIAMCINOLONE ACET 0.1% OINT 15 GM TUBE 1 APPLIC TOPICAL ×2 (12:28→22:08)
[2022-06-05] MEDS: HYDROcodone/acetaminophen (*CRX) 5-325 MG TABLET 1 TAB PO (12:33)
[2022-06-05 14:00] VITALS: BP 138/73; PULSE 79; RESP 20; TEMP 36.5; O2SAT 99
[2022-06-05 16:35] LABS: Glucose Point of Care 161 mg/dl (65-105)
[2022-06-05 19:25] VITALS: BP 136/71; PULSE 79; RESP 18; TEMP 37; O2SAT 99
[2022-06-05] MEDS: traZODone HCL 50 MG TABLET PO (22:10)
[2022-06-05 22:38] LABS: Glucose Point of Care 164 mg/dl (65-105)
[2022-06-06 02:44] LABS: Glucose Point of Care 150 mg/dl (65-105)
[2022-06-06 03:06] VITALS: BP 124/68; PULSE 78; RESP 18; TEMP 36.5; O2SAT 96
[2022-06-06 05:13] LABS: Hematocrit 35.6 % (42.0-52.0); Hemoglobin 11.7 g/dL (14.0-18.0); Mean Corpuscular HGB Conc 32.9 g/dl (32-36); Mean Corpuscular Hemoglobin 29.2 pg (26-34); Mean Corpuscular Volume 88.8 fl (80-100); Mean Platelet Volume 10.2 fl (7.4-10.4); Platelet Count Result 192 k/mm3 (150-375); Red Blood Count 4.01 M/mm3 (4.6-6.20); Red Cell Distribution Width 12.8 % (11.5-14.5); White Blood Count 5.5 K/mm3 (4.5-10.0)
[2022-06-06 05:27] LABS: Anion Gap 7 mmol/L (8-16); Blood Urea Nitrogen 23 mg/dL (9-20); Calcium 8.6 mg/dL (8.4-10.2); Carbon Dioxide 28 mmol/L (22-30); Chloride 101 mmol/L (98-107); Estimated CRCL calculation 62 ml/min; Estimated Glomerular Filt Rate > 60; Glucose 217 mg/dL (65-110); Potassium 4.6 mmol/L (3.4-5.0); Sodium 136 mmol/L (137-145)
[2022-06-06] MEDS: GABAPENTIN 300 MG CAPSULE 600 MG PO ×3 (05:29→21:26)
[2022-06-06] MEDS: CENTRAL LINE FLUSH 10 ML IV PUSH ×3 (05:30→21:27)
[2022-06-06] MEDS: metroNIDAZOLE 500 MG/ISO 100ML 500 MG/100 ML BAG 100 MG IVPB ×3 (05:30→21:23)
--- NOTE | 2022-06-06 07:47 | PM.IMPN ---
Progress Note: A&P Assessment and Plan (1) Osteomyelitis of foot, left, acute: Code(s): M86.172 - Other acute osteomyelitis, left ankle and foot Status: Acute Assessment and Plan: 05/29 wcx with MSSA. 05/31/22 had excision of osteomyelitis of left foot with excisional debridement of diabetic foot ulcer to muscle layer. 05/31 wcx with streptococcus anginosus and gram positive cocci. Patient discussed with orthopedic surgery and clean margins without infection were likely not obtained. Also orthopedic had concerns about soft tissue infection, so patient will continue intravenous antibiotics through Tuesday, 06/07. Patient will need six weeks of antibiotics. -Wound management per Orthopedic Surgery -Continue vancomycin, metronidazole and cefepime (2) Hypertension: Code(s): I10 - Essential (primary) hypertension Status: Acute Assessment and Plan: -Hydralazine PRN (3) Diabetic peripheral neuropathy: Code(s): E11.42 - Type 2 diabetes mellitus with diabetic polyneuropathy Status: Acute Assessment and Plan: -continue gabapentin (4) Type 2 diabetes mellitus: Qualifiers: Diabetes mellitus medical terminologist insulin use: without medical terminologist use Diabetes mellitus complication status: with neurologic complications Diabetes mellitus complication detail: with polyneuropathy Qualified Code(s): E11.42 - Type 2 diabetes mellitus with diabetic polyneuropathy Code(s): E11.9 - Type 2 diabetes mellitus without complications Status: Acute Assessment and Plan: Hemoglobin a1c 7.6. Takes metformin and glimepiride at home. -Continue glimepiride -Holding metformin -SSI with accuchecks (5) Anxiety: Code(s): F41.9 - Anxiety disorder, unspecified Status: Acute Assessment and Plan: -continue with trazodone (6) Rash: Code(s): R21 - Rash and other nonspecific skin eruption Status: Acute Assessment and Plan: Rash improved with triamcinolone. Continue. -Triamcinolone 0.1% BID -Continue benadryl cream Subjective Date/time seen: 06/06/22 07:47 Patient says he feels great. Denies fever, chills. Says his rash is almost gone. Review of Systems Constitutional: Constitutional: Denies chills Integumentary/Breasts: Skin/Breast: Reports rash and Reports wounds Exam Narrative: GENERAL: NAD, cooperative HEENT: Normocephalic, atraumatic, anicteric, nares clear, oropharynx moist and clear, dentition normal NECK: Supple CV: Normal S1, S2, RRR, No MRG RESP: CTAB, Normal work of breathing. EXTREMITIES: LLE with foot wound dressing c/d/i. SKIN: warm, dry and intact. NEURO: CN 2-12 grossly intact. Objective Data Vital Signs Vital Signs: Vital Signs - 24 hr 06/05/22 08:35 06/05/22 14:00 06/05/22 19:25 Temperature 36.5 C 37.0 C Pulse Rate 79 79 Respiratory Rate 20 18 Blood Pressure 138/73 136/71 Pulse Oximetry 99 99 Oxygen Delivery Room Air 06/05/22 20:00 06/06/22 03:06 Temperature 36.5 C Pulse Rate 78 Respiratory Rate 18 Blood Pressure 124/68 Pulse Oximetry 96 Oxygen Delivery Room Air Intake/Output Intake/Output: Intake & Output 06/03/22 06/04/22 06/05/22 06/06/22 23:59 23:59 23:59 23:59 Intake Total 2656 4280 2700 350 Output Total 3500 2400 2125 700 Balance -844 1880 575 -350 Meds/Results Medications: Active Medications Generic Name Dose Route Start Last Admin Trade Name Freq PRN Reason Stop Dose Admin Hydrocodone Bitart/Acetaminophen 1 tab 05/28/22 13:49 06/05/22 12:33 Hydrocodone/Acetaminophen (*Crx) 5-325 Mg Tablet PO 1 tab Q4H PRN Administration Moderate Pain (4-6) Albuterol 2 puff 05/28/22 13:58 Albuterol Sulfate (*Sp) Aerosol 1 Puff INHALATION Q6HRT PRN Shortness Of Breath Dextrose 12.5 gm 05/28/22 13:57 Dextrose 50% 25 Gm/50 Ml Syringe IV PUSH PRN PRN Hypoglyc
[2022-06-06] MEDS: HYDROcodone/acetaminophen (*CRX) 5-325 MG TABLET 1 TAB PO (07:51)
[2022-06-06] MEDS: GLIMEPIRIDE 1 MG TABLET PO (07:52)
[2022-06-06] MEDS: SENNA/DOCUSATE SODIUM TABLET 2 TAB PO ×2 (07:52→17:43)
[2022-06-06] MEDS: polyethylene glycoL 3350 17 GM POWD.PACK PO (07:52)
[2022-06-06] MEDS: TRIAMCINOLONE ACET 0.1% OINT 15 GM TUBE 1 APPLIC TOPICAL ×2 (07:52→21:22)
[2022-06-06] MEDS: ENOXAPARIN 40 MG/0.4 ML SYRINGE SUB-Q (07:52)
[2022-06-06] MEDS: SILVERGEL (ELTA) 45 ML 1 APPLIC TOPICAL (07:53)
[2022-06-06 08:04] LABS: Glucose Point of Care 213 mg/dl (65-105)
[2022-06-06] MEDS: INSULIN ASPART (*BKC) 100 UNITS/ML SUB-Q ×4 (08:49→17:44)
[2022-06-06 11:34] LABS: Glucose Point of Care 156 mg/dl (65-105)
[2022-06-06 14:00] VITALS: BP 122/66; PULSE 82; RESP 20; TEMP 36.4; O2SAT 100
[2022-06-06 16:40] LABS: Glucose Point of Care 140 mg/dl (65-105)
[2022-06-06 20:00] VITALS: PULSE 82; RESP 20; O2SAT 100
[2022-06-06 20:12] LABS: Glucose Point of Care 204 mg/dl (65-105)
[2022-06-06] MEDS: traZODone HCL 50 MG TABLET PO (21:26)
[2022-06-06 21:39] VITALS: BP 141/75; PULSE 85; RESP 21; TEMP 36.4; O2SAT 100
[2022-06-07] MEDS: metroNIDAZOLE 500 MG/ISO 100ML 500 MG/100 ML BAG 100 MG IVPB (05:01)
[2022-06-07] MEDS: CENTRAL LINE FLUSH 10 ML IV PUSH (05:01)
[2022-06-07] MEDS: GABAPENTIN 300 MG CAPSULE 600 MG PO (05:01)
[2022-06-07 05:23] LABS: Hematocrit 36.1 % (42.0-52.0); Hemoglobin 12.1 g/dL (14.0-18.0); Mean Corpuscular HGB Conc 33.5 g/dl (32-36); Mean Corpuscular Hemoglobin 29.2 pg (26-34); Mean Corpuscular Volume 87.2 fl (80-100); Mean Platelet Volume 10.7 fl (7.4-10.4); Platelet Count Result 189 k/mm3 (150-375); Red Blood Count 4.14 M/mm3 (4.6-6.20); Red Cell Distribution Width 12.9 % (11.5-14.5)
[2022-06-07 05:37] LABS: Anion Gap 9 mmol/L (8-16); Blood Urea Nitrogen 21 mg/dL (9-20); Calcium 8.7 mg/dL (8.4-10.2); Carbon Dioxide 28 mmol/L (22-30); Chloride 101 mmol/L (98-107); Estimated CRCL calculation 62 ml/min; Estimated Glomerular Filt Rate > 60; Glucose 171 mg/dL (65-110); Potassium 4.6 mmol/L (3.4-5.0); Sodium 138 mmol/L (137-145)
[2022-06-07 07:57] VITALS: BP 120/71; PULSE 74; RESP 20; TEMP 36.9; O2SAT 98
[2022-06-07] MEDS: polyethylene glycoL 3350 17 GM POWD.PACK PO (09:02)
[2022-06-07] MEDS: TRIAMCINOLONE ACET 0.1% OINT 15 GM TUBE 1 APPLIC TOPICAL (09:02)
[2022-06-07] MEDS: SILVERGEL (ELTA) 45 ML 1 APPLIC TOPICAL (09:02)
[2022-06-07] MEDS: ENOXAPARIN 40 MG/0.4 ML SYRINGE SUB-Q (09:02)
[2022-06-07] MEDS: SENNA/DOCUSATE SODIUM TABLET 2 TAB PO (09:02)
[2022-06-07] MEDS: GLIMEPIRIDE 1 MG TABLET PO (09:02)
[2022-06-07] MEDS: INSULIN ASPART (*BKC) 100 UNITS/ML SUB-Q ×3 (09:03→12:31)
[2022-06-07] MEDS: DIPHENHYDRAMINE 1%/ZINC 0.1% CREAM 30 GM TUBE 1 APPLIC TOPICAL ×2 (09:03→12:25)
[2022-06-07 09:18] LABS: Glucose Point of Care 159 mg/dl (65-105)
--- NOTE | 2022-06-07 11:53 | PM.PNORT ---
Progress Note: A&P Assessment and Plan (1) Diabetic foot ulcer associated with diabetes mellitus due to underlying condition: Qualifiers: Diabetic foot ulcer location: other Laterality: left Non-pressure ulcer stage: with necrosis of muscle Qualified Code(s): E08.621 - Diabetes mellitus due to underlying condition with foot ulcer; L97.523 - Non-pressure chronic ulcer of other part of left foot with necrosis of muscle Code(s): E08.621 - Diabetes mellitus due to underlying condition with foot ulcer; L97.509 - Non-pressure chronic ulcer of other part of unspecified foot with unspecified severity Status: Acute Assessment and Plan: POD #7 PT/OT. WB on Heel. Post Op Shoe. Daily dressing change with adaptic over incision lines, ABD and cover dry. IV antibiotics x 1 week. Intraoperative cultures= Sensitive Staph. Pathology reveals acute osteomyelitis. Appreciate Pharm ID input. Plan to transition to oral antibiotics at this time with a plan for 3 weeks of oral antibiotics for total of 4 week course. Discussed with patient. Verbalizes understanding. Dispo: Home on oral antibiotics when medically cleared. Okay for d/c today from ortho standpoing. (2) Osteomyelitis of foot, left, acute: Code(s): M86.172 - Other acute osteomyelitis, left ankle and foot Status: Acute Subjective Subjective Date/Time Seen: 06/07/22 11:53 Post Op day: 7 Principal diagnosis: Left foot osteomyelitis with diabetic foot ulcer Interval history: Patient doing well. No new concerns. Pain well controlled. Review of Systems Review of Systems: All systems reviewed & are unremarkable except as noted in HPI and below (HPI ) Exam Extrem: Right upper extremity: normal to inspection Left upper extremity: normal to inspection Right lower extremity: ankle Details: normal to inspection, abnormal ROM Details: with range as follows (Ankle dorsiflexion -10 degrees, Plantar flexion 40 degrees, inversion 15 degrees, degress) and other (Good stability all directions); no tenderness, no swelling and no ecchymosis and foot Details: abnormal to inspection, abnormal ROM of toe (Hallux MTP dorsieflexion 40, planterflexion 20), vascular exam Details: dorsalis pedis pulse present and normal capillary refill, tendon exam Details: active flexion abnormal and active extension abnormal, motor-sensory exam Details: two point discrimination abnormal Location: in all toes and light-touch abnormal Location: in all toes and other (Hallux Metatarsophalangeal motion 20 degrees dorisiflexion 10 degrees, plantar flexion ) Left lower extremity: ankle Details: normal to inspection and abnormal ROM Details: with range as follows (Ankle dorsiflexion -10, planter flexion 40, inversion 15, eversion 15); no tenderness and no swelling and foot Details: normal capillary refill, abnormal to inspection Details: 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 Probes to bone. Sanguinous drainage. 2.8 cm depth. 4 mm x 4 mm dorsal ulceration with surrounding erythema and sanguinous drainage.); no tenderness and no crepitus Other: Left foot dressing changed. Dorsal incision with sanguinous drainage. Erythema improved. Swelling improved. Plantar ulcer well approximated. Negative Homans sign. Remaining toes with good capillary refill. Objective Data Vital Signs Vital Signs: Vital Signs - 24 hr 06/06/22 14:00 06/06/22 21:39 06/06/22 20:00 Temperature 36.4 C L 36.4 C Pulse Rate 82 85 82 Respiratory Rate 20 21 H 20 Blood Pressure 122/66 141/75 H Pulse Oximetry 100 100 100 Oxygen Delivery Room Air 06/07/22 07:
[2022-06-07 12:16] LABS: Glucose Point of Care 246 mg/dl (65-105)
--- NOTE | 2022-06-07 13:15 | PM.DS ---
DS: Admitting Diagnosis Discharge Date 06/07/22 Admitting Diagnosis Osteomyelitis DS: Discharge Diagnosis Discharge Diagnosis (1) Osteomyelitis of foot, left, acute: Code(s): M86.172 - Other acute osteomyelitis, left ankle and foot Status: Acute Assessment and Plan: 05/29 wcx with MSSA. 05/31/22 had excision of osteomyelitis of left foot with excisional debridement of diabetic foot ulcer to muscle layer. 05/31 wcx with streptococcus anginosus and gram positive cocci. Patient discussed with orthopedic surgery and clean margins without infection were likely not obtained. Also orthopedic had concerns about soft tissue infection, so patient will continue intravenous antibiotics through Tuesday, 06/07. Patient discussed with infectious disease pharmacist, who recommended cephalexin for the would culture from the operating room and coverage for the 05/29 MSSA. -Cephalexin 500 mg po q6h to be completed 07/09/22 -Wound management per Orthopedic Surgery -Patient advised to follow up with primary care physician within a week of discharge (2) Hypertension: Code(s): I10 - Essential (primary) hypertension Status: Acute Assessment and Plan: -Hydralazine PRN (3) Diabetic peripheral neuropathy: Code(s): E11.42 - Type 2 diabetes mellitus with diabetic polyneuropathy Status: Acute Assessment and Plan: -continue gabapentin (4) Type 2 diabetes mellitus: Qualifiers: Diabetes mellitus skilled nursing insulin use: without aircraft captain use Diabetes mellitus complication status: with neurologic complications Diabetes mellitus complication detail: with polyneuropathy Qualified Code(s): E11.42 - Type 2 diabetes mellitus with diabetic polyneuropathy Code(s): E11.9 - Type 2 diabetes mellitus without complications Status: Acute Assessment and Plan: Hemoglobin a1c 7.6. Takes metformin and glimepiride at home. Will resume home medications for discharge. (5) Anxiety: Code(s): F41.9 - Anxiety disorder, unspecified Status: Acute Assessment and Plan: -continue with trazodone (6) Rash: Code(s): R21 - Rash and other nonspecific skin eruption Status: Acute Assessment and Plan: Rash improved with triamcinolone 0.1%. DS: Summary Hospital Course Reason for hospitalization: Osteomyelitis Hospital Course: 66M with a past medical history of diabetes, anxiety and a chronic diabetic foot ulcer who presented to the emergency department after a blister formed and burst on top of his left foot. A hole was also noted on the bottom of the same foot. MRI of the foot showed osteomyelitis extending proximally to at least the proximal diaphysis of the fourth metatarsal. A 2.0 x 2.8 x 1.3 cm associated abscess at the level of the distal osteotomy margin which appears to extend to the skin surface both plantar and dorsally. Cefepime, vancomycin and metronidazole were started. Orthopedic surgery was consulted and took he patient to the operating room on 05/31/22. Culture from 05/29/22 grew MSSA. Intravenous antibiotics were continued from 05/28/10. Patient was discussed with the infectious disease pharmacist who recommended continuing treatment with cephalexin. Patient was advised to follow up with his primary care physician within a week of discharge. Blood cultures from 05/28/22 were finalized negative at the time of discharge. Time Spent with Patient Time attestation: Total time spent providing and/or coordinating discharge services: Exam Narrative: GENERAL: NAD, cooperative HEENT: Normocephalic, atraumatic, anicteric, nares clear, oropharynx moist and clear, dentition normal NECK: Supple CV: Normal S1, S2, RRR, No MRG RESP: CTAB, Normal work of breathing. EXTREMITIES: LLE with foot wound dressing c/d/i. SKIN: warm, dry and intact. NEURO: CN 2-12 grossly intact. DS: Data Data Com
[2022-06-07 14:43] VITALS: BP 113/66; PULSE 90; RESP 18; TEMP 36.8; O2SAT 98
== END 2022-06-07 15:05 | disposition home or self-care (01) | DRG 623 ==
PROVIDERS: Nurse Practitioner; Orthopaedic Surgery; Admitting Provider Family Medicine; PCP Family Medicine Adolescent Medicine; Visit Provider Family Medicine
PROC: 0KBW0ZZ Excision of Left Foot Muscle, Open Approach (ICD-10-PCS; principal; 2022-05-31 07:30)
PROC: 0KBW0ZZ Excision of Left Foot Muscle, Open Approach (ICD-10-PCS; 2022-05-31 07:30)
DX: E11.69 Type 2 diabetes mellitus with other specified complication (principal); L02.612 Cutaneous abscess of left foot; L03.116 Cellulitis of left lower limb; M86.172 Other acute osteomyelitis, left ankle and foot; L97.423 Non-pressure chronic ulcer of left heel and midfoot with necrosis of muscle; E11.621 Type 2 diabetes mellitus with foot ulcer; E11.42 Type 2 diabetes mellitus with diabetic polyneuropathy; E11.51 Type 2 diabetes mellitus with diabetic peripheral angiopathy without gangrene; E11.628 Type 2 diabetes mellitus with other skin complications; B95.4 Other streptococcus as the cause of diseases classified elsewhere; B95.61 Methicillin susceptible Staphylococcus aureus infection as the cause of diseases classified elsewhere; R21 Rash and other nonspecific skin eruption; I10 Essential (primary) hypertension; F41.9 Anxiety disorder, unspecified; Z28.21 Immunization not carried out because of patient refusal; Z79.84 Long term (current) use of oral hypoglycemic drugs; Z79.899 Other long term (current) drug therapy; Z89.422 Acquired absence of other left toe(s)
CPT/HCPCS: 36415; 36569; 73720; 80048; 80202; 82565; 82948; 83036; 83605; 83735; 85025; 85027; 87040; 87070; 87075; 87076; 87147; 87186; 87205; 88307; 96365; 96366; 96367; 96375; 97110; 97116; 97161; 97165; 97530; 99212; A9270; A9577; C1751; G0378; G0379; G0463; J0330; J0692; J1650; J1815; J2405; J2704; J3010; J3370; J7120

== ENCOUNTER 2022-08-03 07:16 | Outpatient (RCR) | payer MEDICARE, SELFPAY ==
[2022-05-18 10:00] VITALS: BMI 31.3
--- NOTE | 2022-06-15 08:44 | PM.PNORT ---
Progress Note: A&P Assessment and Plan (1) Diabetic foot ulcer associated with diabetes mellitus due to underlying condition: Qualifiers: Diabetic foot ulcer location: other Laterality: left Non-pressure ulcer stage: with necrosis of muscle Qualified Code(s): E08.621 - Diabetes mellitus due to underlying condition with foot ulcer; L97.523 - Non-pressure chronic ulcer of other part of left foot with necrosis of muscle Code(s): E08.621 - Diabetes mellitus due to underlying condition with foot ulcer; L97.509 - Non-pressure chronic ulcer of other part of unspecified foot with unspecified severity Status: Acute Assessment and Plan: 2 weeks, 1 day post op PT/OT. WB on Heel. Post Op Shoe. Daily dressing change, transition to silver gel over dorsal wound dehiscence and cover with transfer, cover dry. Continue oral antibiotics. Follow up in 1 week for suture removal. (2) Osteomyelitis of foot, left, acute: Code(s): M86.172 - Other acute osteomyelitis, left ankle and foot Status: Acute Subjective Subjective Date/Time Seen: 06/15/22 08:44 Principal diagnosis: 2 weeks, 1 day Interval history: 2 weeks, 1 day s/p left foot excision of osteomyelitis with excisional debridement of the left DFU. No new concerns. Pain well controlled. Tolerating daily dressing changes well. Review of Systems Review of Systems: All systems reviewed & are unremarkable except as noted in HPI and below (HPI ) Exam Const: General: comfortable and no acute distress Resp: Effort & Inspection: normal respiratory effort Cardio: Rate: regular rate Rhythm: regular rhythm GI: GI Palp: Yes Soft to palpation and No Tenderness to palpation present (GI) Extrem: Right upper extremity: normal to inspection Left upper extremity: normal to inspection Right lower extremity: ankle Details: normal to inspection, abnormal ROM Details: with range as follows (Ankle dorsiflexion -10 degrees, Plantar flexion 40 degrees, inversion 15 degrees, degress) and other (Good stability all directions); no tenderness, no swelling and no ecchymosis and foot Details: abnormal to inspection, abnormal ROM of toe (Hallux MTP dorsieflexion 40, planterflexion 20), vascular exam Details: dorsalis pedis pulse present and normal capillary refill, tendon exam Details: active flexion abnormal and active extension abnormal, motor-sensory exam Details: two point discrimination abnormal Location: in all toes and light-touch abnormal Location: in all toes and other (Hallux Metatarsophalangeal motion 20 degrees dorisiflexion 10 degrees, plantar flexion ) Left lower extremity: ankle Details: normal to inspection and abnormal ROM Details: with range as follows (Ankle dorsiflexion -10, planter flexion 40, inversion 15, eversion 15); no tenderness and no swelling and foot Details: normal capillary refill, abnormal to inspection Details: 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 Probes to bone. Sanguinous drainage. 2.8 cm depth. 4 mm x 4 mm dorsal ulceration with surrounding erythema and sanguinous drainage.); no tenderness and no crepitus Other: Left foot dressing changed. Dorsal incision with sanguinous drainage. Wound dehiscence measures 1.5x0.5x0.2cm. 100% red/pink. No erythema. Swelling improved. Plantar ulcer well approximated. Negative Homans sign. Remaining toes with good capillary refill. Psych: Affect: normal affect Objective Data Meds/Results Medications: Active Medications Generic Name Dose Route Start Last Admin Trade Name Freq PRN Reason Stop Dose Admin Clotrimazole 1 applic 05/18/22 10:00
--- NOTE | 2022-06-22 09:48 | PM.PNORT ---
Progress Note: A&P Assessment and Plan (1) Diabetic foot ulcer associated with diabetes mellitus due to underlying condition: Qualifiers: Diabetic foot ulcer location: other Laterality: left Non-pressure ulcer stage: with necrosis of muscle Qualified Code(s): E08.621 - Diabetes mellitus due to underlying condition with foot ulcer; L97.523 - Non-pressure chronic ulcer of other part of left foot with necrosis of muscle Code(s): E08.621 - Diabetes mellitus due to underlying condition with foot ulcer; L97.509 - Non-pressure chronic ulcer of other part of unspecified foot with unspecified severity Status: Acute Assessment and Plan: 3 weeks post op PT/OT. WB on Heel. Post Op Shoe. Sutures removed today. Plantar ulcer healed. Daily dressing change, transition to silver gel over dorsal wound dehiscence, ADD drew and cover with transfer, cover dry. Continue oral antibiotics. (2) Osteomyelitis of foot, left, acute: Code(s): M86.172 - Other acute osteomyelitis, left ankle and foot Status: Acute Subjective Subjective Date/Time Seen: 06/22/22 09:48 Principal diagnosis: 3 weeks Interval history: 3 weeks s/p left foot excision of osteomyelitis with excisional debridement of the left DFU. No new concerns. Pain well controlled. Tolerating daily dressing changes well. Review of Systems Review of Systems: All systems reviewed & are unremarkable except as noted in HPI and below (HPI ) Exam Const: General: comfortable and no acute distress Resp: Effort & Inspection: normal respiratory effort Cardio: Rate: regular rate Rhythm: regular rhythm GI: GI Palp: Yes Soft to palpation and No Tenderness to palpation present (GI) Extrem: Right upper extremity: normal to inspection Left upper extremity: normal to inspection Right lower extremity: ankle Details: normal to inspection, abnormal ROM Details: with range as follows (Ankle dorsiflexion -10 degrees, Plantar flexion 40 degrees, inversion 15 degrees, [id number] degress) and other (Good stability all directions); no tenderness, no swelling and no ecchymosis and foot Details: abnormal to inspection, abnormal ROM of toe (Hallux MTP dorsieflexion 40, planterflexion 20), vascular exam Details: dorsalis pedis pulse present and normal capillary refill, tendon exam Details: active flexion abnormal and active extension abnormal, motor-sensory exam Details: two point discrimination abnormal Location: in all toes and light-touch abnormal Location: in all toes and other (Hallux Metatarsophalangeal motion 20 degrees dorisiflexion 10 degrees, plantar flexion ) Left lower extremity: ankle Details: normal to inspection and abnormal ROM Details: with range as follows (Ankle dorsiflexion -10, planter flexion 40, inversion 15, eversion 15); no tenderness and no swelling and foot Details: normal capillary refill, abnormal to inspection Details: 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 Probes to bone. Sanguinous drainage. 2.8 cm depth. 4 mm x 4 mm dorsal ulceration with surrounding erythema and sanguinous drainage.); no tenderness and no crepitus Other: Left foot dressing changed. Dorsal incision with sanguinous drainage. Wound dehiscence measures 1.5x0.5x0.2cm. 100% red/pink. No erythema. Swelling improved. Plantar ulcer healed. Negative Homans sign. Remaining toes with good capillary refill. Psych: Affect: normal affect Objective Data Meds/Results Medications: Active Medications Generic Name Dose Route Start Last Admin Trade Name Freq PRN Reason Stop Dose Admin Clotrimazole 1 applic 05/18/22 10:00 Betamethasone/
--- NOTE | 2022-06-29 09:00 | PM.PNORT ---
Progress Note: A&P Assessment and Plan (1) Diabetic foot ulcer associated with diabetes mellitus due to underlying condition: Qualifiers: Diabetic foot ulcer location: other Laterality: left Non-pressure ulcer stage: with necrosis of muscle Qualified Code(s): E08.621 - Diabetes mellitus due to underlying condition with foot ulcer; L97.523 - Non-pressure chronic ulcer of other part of left foot with necrosis of muscle Code(s): E08.621 - Diabetes mellitus due to underlying condition with foot ulcer; L97.509 - Non-pressure chronic ulcer of other part of unspecified foot with unspecified severity Status: Acute Assessment and Plan: 4 weeks post op PT/OT. WB on Heel. Post Op Shoe. Plantar ulcer remains well healed. Daily dressing change, transition to silver gel over dorsal wound dehiscence, ADD drew and cover with transfer, cover dry. Continue oral antibiotics. Follow up 2 weeks. (2) Osteomyelitis of foot, left, acute: Code(s): M86.172 - Other acute osteomyelitis, left ankle and foot Status: Acute Subjective Subjective Date/Time Seen: 06/29/22 09:00 Interval history: 4 weeks s/p left foot excision of osteomyelitis with excisional debridement of the left DFU. No new concerns. Pain well controlled. Tolerating daily dressing changes well. Review of Systems Review of Systems: All systems reviewed & are unremarkable except as noted in HPI and below (HPI ) Exam Const: General: comfortable and no acute distress Resp: Effort & Inspection: normal respiratory effort Cardio: Rate: regular rate Rhythm: regular rhythm GI: GI Palp: Yes Soft to palpation and No Tenderness to palpation present (GI) Extrem: Right upper extremity: normal to inspection Left upper extremity: normal to inspection Right lower extremity: ankle Details: normal to inspection, abnormal ROM Details: with range as follows (Ankle dorsiflexion -10 degrees, Plantar flexion 40 degrees, inversion 15 degrees, [id number] degress) and other (Good stability all directions); no tenderness, no swelling and no ecchymosis and foot Details: abnormal to inspection, abnormal ROM of toe (Hallux MTP dorsieflexion 40, planterflexion 20), vascular exam Details: dorsalis pedis pulse present and normal capillary refill, tendon exam Details: active flexion abnormal and active extension abnormal, motor-sensory exam Details: two point discrimination abnormal Location: in all toes and light-touch abnormal Location: in all toes and other (Hallux Metatarsophalangeal motion 20 degrees dorisiflexion 10 degrees, plantar flexion ) Left lower extremity: ankle Details: normal to inspection and abnormal ROM Details: with range as follows (Ankle dorsiflexion -10, planter flexion 40, inversion 15, eversion 15); no tenderness and no swelling and foot Details: normal capillary refill, abnormal to inspection Details: 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 Probes to bone. Sanguinous drainage. 2.8 cm depth. 4 mm x 4 mm dorsal ulceration with surrounding erythema and sanguinous drainage.); no tenderness and no crepitus Other: Left foot dressing changed. Dorsal incision with sanguinous drainage. Wound dehiscence measures 3.4x0.5x0.2cm. 100% red/pink. No erythema. Swelling improved. Plantar ulcer healed. Negative Homans sign. Remaining toes with good capillary refill. Psych: Affect: normal affect Objective Data Meds/Results Medications: Active Medications Generic Name Dose Route Start Last Admin Trade Name Freq PRN Reason Stop Dose Admin Clotrimazole 1 applic 05/18/22 10:00 Betamethasone/Clotrimazole Cr 15
--- NOTE | 2022-07-13 09:05 | PM.PNORT ---
Progress Note: A&P Assessment and Plan (1) Diabetic foot ulcer associated with diabetes mellitus due to underlying condition: Qualifiers: Diabetic foot ulcer location: other Laterality: left Non-pressure ulcer stage: with necrosis of muscle Qualified Code(s): E08.621 - Diabetes mellitus due to underlying condition with foot ulcer; L97.523 - Non-pressure chronic ulcer of other part of left foot with necrosis of muscle Code(s): E08.621 - Diabetes mellitus due to underlying condition with foot ulcer; L97.509 - Non-pressure chronic ulcer of other part of unspecified foot with unspecified severity Status: Acute Assessment and Plan: Dorsal incision and plantar wound now closed. No need for continued wound care. Patient does have athlete's foot and we will begin antifungal lotion. Complete full course of oral antibiotics. Patient would benefit from custom orthotics and depth shoes to prevent recurrent infections and open ulcerations. Follow up in 3 weeks. Patient requires custom fabricated orthosis. The patient is unable to be fit with a pre fabricated orthosis. Patient's condition is expected duration of greater than 1 year. Due to the patients orthopedic status with bone and soft tissue deformity, weakness, neurologic involvement custom fabricating is necessary to prevent tissue injury. The patient requires a custom orthosis for the above condition. (2) Osteomyelitis of foot, left, acute: Code(s): M86.172 - Other acute osteomyelitis, left ankle and foot Status: Acute Subjective Subjective Date/Time Seen: 07/13/22 09:05 Interval history: 6 weeks s/p left foot excision of osteomyelitis with excisional debridement of the left DFU. No new concerns. Pain well controlled. Tolerating daily dressing changes well. Review of Systems Review of Systems: All systems reviewed & are unremarkable except as noted in HPI and below (HPI ) Exam Const: General: comfortable and no acute distress Resp: Effort & Inspection: normal respiratory effort Cardio: Rate: regular rate Rhythm: regular rhythm GI: GI Palp: Yes Soft to palpation and No Tenderness to palpation present (GI) Extrem: Right upper extremity: normal to inspection Left upper extremity: normal to inspection Right lower extremity: ankle Details: normal to inspection, abnormal ROM Details: with range as follows (Ankle dorsiflexion -10 degrees, Plantar flexion 40 degrees, inversion 15 degrees, degress) and other (Good stability all directions); no tenderness, no swelling and no ecchymosis and foot Details: abnormal to inspection, abnormal ROM of toe (Hallux MTP dorsieflexion 40, planterflexion 20), vascular exam Details: dorsalis pedis pulse present and normal capillary refill, tendon exam Details: active flexion abnormal and active extension abnormal, motor-sensory exam Details: two point discrimination abnormal Location: in all toes and light-touch abnormal Location: in all toes and other (Hallux Metatarsophalangeal motion 20 degrees dorisiflexion 10 degrees, plantar flexion ) Left lower extremity: ankle Details: normal to inspection and abnormal ROM Details: with range as follows (Ankle dorsiflexion -10, planter flexion 40, inversion 15, eversion 15); no tenderness and no swelling and foot Details: normal capillary refill, abnormal to inspection Details: 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 Probes to bone. Sanguinous drainage. 2.8 cm depth. 4 mm x 4 mm dorsal ulceration with surrounding erythema and sanguinous drainage.); no tenderness and no crepitus Other: Left foot dressing changed. Dorsal wound
--- NOTE | ~2022-08-03 | XR_ITS ---
EXAM: [id number] DATE: 05/18/2022 10:56 HISTORY: erythema, wound PLANTAR SURFACE . COMPARISON: X-ray left foot 05/07/2020. FINDINGS: Normal mineralization. No fracture or dislocation. No lytic or blastic lesion. Achilles an d plantar enthesopathy. Degenerative changes at the first MTP and in the midfoot. Prior partial fourt h metatarsal head resection with marked adjacent soft tissue swelling and subcutaneous gas. Focal ero melissa in the residual metatarsal head seen in the oblique views. IMPRESSION: Findings suspicious for osteomyelitis involving the residual portion of the fourth metata rsal head, with adjacent cellulitis. Results reported telephonically to VIET Garland by Dr. Gaona at 3:30 PM on 05/18/2022. Reviewed, dictated and finalized at location K. IMPRESSION: Findings suspicious for osteomyelitis involving the residual portio n of the fourth metatarsal head, with adjacent cellulitis. Results reported telephonically to VIET Garland by Dr. Gaona at 3:30 PM on 05/18/2022.
--- NOTE | 2022-08-03 08:47 | PM.PNORT ---
Progress Note: A&P Assessment and Plan (1) Diabetic foot ulcer associated with diabetes mellitus due to underlying condition: Qualifiers: Diabetic foot ulcer location: other Laterality: left Non-pressure ulcer stage: with necrosis of muscle Qualified Code(s): E08.621 - Diabetes mellitus due to underlying condition with foot ulcer; L97.523 - Non-pressure chronic ulcer of other part of left foot with necrosis of muscle Code(s): E08.621 - Diabetes mellitus due to underlying condition with foot ulcer; L97.509 - Non-pressure chronic ulcer of other part of unspecified foot with unspecified severity Status: Acute Assessment and Plan: Dorsal incision and plantar wound now closed. Patient does have athlete's foot- Continue antifungal lotion x2 weeks. Completed oral antibiotics course. Patient would benefit from custom orthotics and depth shoes to prevent recurrent infections and open ulcerations. will check with orthotics company for evaluation. Follow up p/r/n. Patient requires custom fabricated orthosis. The patient is unable to be fit with a pre fabricated orthosis. Patient's condition is expected duration of greater than 1 year. Due to the patients orthopedic status with bone and soft tissue deformity, weakness, neurologic involvement custom fabricating is necessary to prevent tissue injury. The patient requires a custom orthosis for the above condition. (2) Osteomyelitis of foot, left, acute: Code(s): M86.172 - Other acute osteomyelitis, left ankle and foot Status: Acute Subjective Subjective Date/Time Seen: 08/03/22 08:47 Post Op day: 9wks Principal diagnosis: Left foot osteomyelitis Interval history: follow-up [facility] for left foot osteomyelitis and ulceration. Patient using antifungal ointment. Has not been evaluate custom orthotics Exam Const: General: comfortable and no acute distress Resp: Effort & Inspection: normal respiratory effort Cardio: Rate: regular rate Rhythm: regular rhythm GI: GI Palp: Yes Soft to palpation and No Tenderness to palpation present (GI) Extrem: Right upper extremity: normal to inspection Left upper extremity: normal to inspection Right lower extremity: ankle Details: normal to inspection, abnormal ROM Details: with range as follows (Ankle dorsiflexion -10 degrees, Plantar flexion 40 degrees, inversion 15 degrees, [id number] degress) and other (Good stability all directions); no tenderness, no swelling and no ecchymosis and foot Details: abnormal to inspection, abnormal ROM of toe (Hallux MTP dorsieflexion 40, planterflexion 20), vascular exam Details: dorsalis pedis pulse present and normal capillary refill, tendon exam Details: active flexion abnormal and active extension abnormal, motor-sensory exam Details: two point discrimination abnormal Location: in all toes and light-touch abnormal Location: in all toes and other (Hallux Metatarsophalangeal motion 20 degrees dorisiflexion 10 degrees, plantar flexion ) Left lower extremity: ankle Details: normal to inspection and abnormal ROM Details: with range as follows (Ankle dorsiflexion -10, planter flexion 40, inversion 15, eversion 15); no tenderness and no swelling and foot Details: normal capillary refill, abnormal to inspection Details: 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 Probes to bone. Sanguinous drainage. 2.8 cm depth. 4 mm x 4 mm dorsal ulceration with surrounding erythema and sanguinous drainage.); no tenderness and no crepitus Other: Left foot evaluation. Dorsal wound dehiscence closed. No erythema. Swelling improved. Plantar
== END 2022-08-16 23:59 | disposition home or self-care (01) ==
LOC: ANHWOC 07:16
PROVIDERS: PCP Family Medicine Adolescent Medicine; Referring Provider Physician Assistant; Visit Provider Nurse Practitioner Family
DX: L97.529 Non-pressure chronic ulcer of other part of left foot with unspecified severity (principal); E11.621 Type 2 diabetes mellitus with foot ulcer
CPT/HCPCS: 73630; 99212; 99213; A9270; G0463

== ENCOUNTER 2023-10-04 16:30 | Outpatient (CLI) | payer MEDICARE, SELFPAY ==
--- NOTE | ~2023-10-04 | XR_ITS ---
EXAMINATION: XR toe 1st LT min 2V DATE: 10/04/2023 16:21 INDICATION: Cellulitis of left great toe. TECHNIQUE: 4 views of left great toe were obtained. COMPARISON: Left foot radiographs 05/07/2020, 05/18/2022 FINDINGS: Bone alignment is normal. No fracture. There is mild osteoarthritis of first interphalangea l joint. IMPRESSION: 1. No evidence of osteomyelitis. Reviewed, dictated and finalized at location E. [employer]
[2023-10-04 17:04] LABS: Basophils Percent Auto 0.4 % (0.2-1.2); Eosinophils Absolute Auto 0.1 K/mm3 (0-0.3); Eosinophils Percent Auto 0.6 % (0-4.4); Hematocrit 42.6 % (42.0-52.0); Immature Granulocyte Absolute 0.08 K/mm3 (0.00-0.031); Immature Granulocyte Percent A 0.7 % (0-0.5); Lymphocytes Absolute Auto 0.92 K/mm3 (0.9-3.2); Lymphocytes Percent Auto 8.1 % (18.3-44.2); Mean Corpuscular HGB Conc 32.9 g/dl (32-36); Mean Corpuscular Hemoglobin 30.5 pg (26-34); Mean Corpuscular Volume 92.8 fl (80-100); Mean Platelet Volume 10.4 fl (7.4-10.4); Monocytes Absolute Auto 0.9 K/mm3 (0.1-0.6); Monocytes Percent Auto 7.8 % (2.6-8.5); Neutrophils Absolute Auto 9.3 K/mm3 (1.3-6.7); Neutrophils Percent Auto 82.4 % (45.5-73.1); Platelet Count Result 251 k/mm3 (150-375); Red Blood Count 4.59 M/mm3 (4.6-6.20); Red Cell Distribution Width 12.5 % (11.5-14.5); White Blood Count 11.3 K/mm3 (4.5-10.0)
[2023-10-04 17:29] LABS: LDL Cholesterol Direct 113 mg/dL
[2023-10-04 17:40] LABS: Alanine Aminotransferase 27 U/L (6-50); Albumin Level 4.2 g/dL (3.5-5.1); Alkaline Phosphatase 70 U/L (38-126); Anion Gap 12 mmol/L (8-16); Aspartate Amino Transferase 34 U/L (17-59); Bilirubin,Total 0.8 mg/dL (0.2-1.3); Blood Urea Nitrogen 26 mg/dL (9-20); Calcium 9.3 mg/dL (8.4-10.2); Carbon Dioxide 25 mmol/L (22-30); Chloride 99 mmol/L (98-107); Cholesterol 182 mg/dL (0-200); Estimated Glomerular Filt Rate 36; Glucose 199 mg/dL (65-110); HDL Direct 22 mg/dL; Potassium 4.8 mmol/L (3.4-5.0); Sodium 136 mmol/L (137-145); Triglycerides 237 mg/dL (<150)
[2023-10-04 18:11] LABS: Creatinine Urine 323.2 mg/dL
[2023-10-04 18:18] LABS: Hemoglobin A1C 7.1 % (<5.7)
[2023-10-04 19:15] LABS: Microalbumin Urine Random 326.3 mg/L (0-16.7)
== END 2023-10-04 16:31 | disposition home or self-care (01) ==
PROVIDERS: PCP Family Medicine Adolescent Medicine; Visit Provider Nurse Practitioner Family
DX: E78.00 Pure hypercholesterolemia, unspecified (principal); L97.523 Non-pressure chronic ulcer of other part of left foot with necrosis of muscle; E11.621 Type 2 diabetes mellitus with foot ulcer; E11.3312 Type 2 diabetes mellitus with moderate nonproliferative diabetic retinopathy with macular edema, left eye; L02.612 Cutaneous abscess of left foot; L03.032 Cellulitis of left toe
CPT/HCPCS: 36415; 73660; 80053; 80061; 82043; 83036; 85025

== ENCOUNTER 2023-10-13 11:53 | Outpatient (CLI) | payer MEDICARE, MEDICAID, SELFPAY ==
[2023-10-13 12:42] LABS: Basophils Percent Auto 0.4 % (0.2-1.2); Eosinophils Absolute Auto 0.2 K/mm3 (0-0.3); Eosinophils Percent Auto 1.5 % (0-4.4); Hematocrit 39.3 % (42.0-52.0); Hemoglobin 12.8 g/dL (14.0-18.0); Immature Granulocyte Absolute 0.04 K/mm3 (0.00-0.031); Immature Granulocyte Percent A 0.4 % (0-0.5); Lymphocytes Absolute Auto 1.63 K/mm3 (0.9-3.2); Lymphocytes Percent Auto 15.7 % (18.3-44.2); Mean Corpuscular HGB Conc 32.6 g/dl (32-36); Mean Corpuscular Hemoglobin 30.3 pg (26-34); Mean Corpuscular Volume 93.1 fl (80-100); Mean Platelet Volume 10.6 fl (7.4-10.4); Monocytes Absolute Auto 0.7 K/mm3 (0.1-0.6); Monocytes Percent Auto 6.3 % (2.6-8.5); Neutrophils Absolute Auto 7.8 K/mm3 (1.3-6.7); Neutrophils Percent Auto 75.7 % (45.5-73.1); Platelet Count Result 287 k/mm3 (150-375); Red Blood Count 4.22 M/mm3 (4.6-6.20); Red Cell Distribution Width 12.5 % (11.5-14.5); White Blood Count 10.4 K/mm3 (4.5-10.0)
[2023-10-13 12:52] LABS: Alanine Aminotransferase 27 U/L (6-50); Albumin Level 4.2 g/dL (3.5-5.1); Alkaline Phosphatase 75 U/L (38-126); Anion Gap 10 mmol/L (8-16); Aspartate Amino Transferase 25 U/L (17-59); Bilirubin,Total 0.5 mg/dL (0.2-1.3); Blood Urea Nitrogen 23 mg/dL (9-20); Calcium 10.1 mg/dL (8.4-10.2); Carbon Dioxide 24 mmol/L (22-30); Chloride 104 mmol/L (98-107); Estimated Glomerular Filt Rate 36; Glucose 142 mg/dL (65-110); Potassium 4.8 mmol/L (3.4-5.0); Sodium 138 mmol/L (137-145)
== END 2023-10-13 11:54 | disposition home or self-care (01) ==
PROVIDERS: PCP Family Medicine Adolescent Medicine; Visit Provider Nurse Practitioner Family
DX: E11.621 Type 2 diabetes mellitus with foot ulcer (principal); L97.529 Non-pressure chronic ulcer of other part of left foot with unspecified severity; L97.509 Non-pressure chronic ulcer of other part of unspecified foot with unspecified severity; L03.032 Cellulitis of left toe; L02.612 Cutaneous abscess of left foot
CPT/HCPCS: 36415; 80053; 85025

== ENCOUNTER 2023-10-17 13:49 | Outpatient (CLI) | payer MEDICARE, MEDICAID, SELFPAY ==
--- NOTE | ~2023-10-17 | US_ITS ---
EXAMINATION: US arterial ankle brachial ind DATE: 10/17/2023 14:53 INDICATION: Peripheral vascular disease. Lower limb claudication. TECHNIQUE: Segmental pressures and plethysmographic and Doppler waveforms of the brachial and lower e xtremity arteries were obtained. COMPARISON: 05/08/2020 FINDINGS: Right and left brachial artery pressures of 127 mm Hg and 136 mm Hg, respectively, are concordant (no rmal difference <= 30 mmHg). The right ankle-brachial index (ROSIE) is 1.55 (normal >= 0.9-1.0). The right great toe-brachial index (TBI) is 0.51 (normal >= 0.65). Arterial Doppler waveforms are triphasic with brisk systolic upstroke s at both right posterior tibial and dorsalis pedis arteries. The left ROSIE is 1.18. The left TBI is unable to be obtained due to bandaging about the left great toe . Arterial Doppler waveforms are triphasic with brisk systolic upstrokes at both left posterior tibia l and dorsalis pedis arteries. IMPRESSION: 1. Mild arterial occlusive disease to the right lower limb with normal right ROSIE but mildly decreased right TBI. 2. Left ROSIE within normal limits but lower than on the left. The left TBI was unable to be obtained d ue to bandaging about the left great toe but was mildly decreased at the time of the prior study in 2 020 Reviewed, dictated and finalized at location A. L [employer] IMPRESSION: 1. Mild arterial occlusive disease to the right lower limb with normal right AB I but mildly decreased right TBI. 2. Left ROSIE within normal limits but lower than on the left. The left TBI was u nable to be obtained due to bandaging about the left great toe but was mildly d ecreased at the time of the prior study in 2019
== END 2023-10-17 13:50 | disposition home or self-care (01) ==
PROVIDERS: PCP Family Medicine Adolescent Medicine; Visit Provider Nurse Practitioner Family
DX: I73.9 Peripheral vascular disease, unspecified (principal); E11.621 Type 2 diabetes mellitus with foot ulcer; L97.509 Non-pressure chronic ulcer of other part of unspecified foot with unspecified severity
CPT/HCPCS: 93922

== ENCOUNTER 2023-10-26 03:31 | Day surgery (SDC) | payer MEDICARE, MEDICAID, SELFPAY ==
[2023-10-25 10:40] VITALS: BMI 31.8
--- NOTE | 2023-10-25 10:47 | PC.NURSE ---
Report to the Outpatient Waiting Room, entrance under the green pavilion located off [facility], at time _1030_ on date _10/26/23_. Planned Procedure Time: _1230_. PACK A SMALL OVERNIGHT BAG AND BRING YOUR WALKER Time changes happen often and if your time is changed the preop area will call you the afternoon before. - You and your visitor will be asked to self-screen and do not enter if you have any COVID symptoms. - A mask is optional within the hospital at this time. Patients may have clear liquids (water, carbonated beverages, clear teas, apple juice) until 3 hours prior to surgery (0930 AM) with a maximum of 20 ounces. - No food from midnight until time of surgery - Infants may have breast milk until 4 hours before surgery, formula 6 hours prior to surgery. - Children will be allowed to drink immediately following surgery. If applicable, please bring a bottle or sippy cup to assist with drinking. Juice, water, soda, and popsicles are readily available. For infants on formula, please bring formula the day of surgery. Pacifiers are allowed. Take the following medications with a SIP of water the morning of surgery: _GABAPENTIN, BACTRIM, & INHALER, PAIN PILL IF NEEDED_ DO NOT STOP ANY OF YOUR OTHER PRESCRIPTION MEDICATIONS PRIOR TO SURGERY ?EXCEPT THE FOLLOWING Medications to discontinue per physician ___PT STATES LAST TAKING IBUPROFEN 10/20/23 Date to take last dose Please no make-up, nail latvian, hairspray, perfume, deodorant, or body powder the day of surgery. No jewelry (including any body piercings) or valuables the day of surgery, leave them at home. Please take a shower or bath the night before, or the morning of, surgery with an antibacterial soap. Wear comfortable, loose fitting clothing. Children are encouraged to wear pajamas. - Jewelry must be removed prior to entering the operating room. Rings and piercings that are not removed may be cut off. - The hospital will not accept responsibility for valuables. - Please leave all valuables, including medications, at home the day of surgery. If you are going home after surgery, a licensed stage driver must drive you home. - NO public transportation without another adult if you receive anesthesia. - We recommend that an adult stay with you for 24 hours following discharge. - We also recommend that you do not drive, make important decision, drink alcoholic beverages, or take any drugs that were not prescribed by your health care provider for at least 24 hours after your discharge time. For Pediatric surgeries, we recommend two adults accompany the child home. Follow any additional instructions given to you from your surgeon. If you or anyone in your household have experienced Covid symptoms in the past week, please notify your surgeon or the nurse liaison at the phone number below for possible testing. Telephone instructions given to ___PT and asked if any additional questions and then verbalized understanding. Patient advised to call surgeon office or pre surgery nurse liaison [phone] if any additional questions.
[2023-10-26] VITALS (12 sets, daily range): BP systolic 117–157; BP diastolic 58–82; PULSE 76–87; RESP 12–21; TEMP 36.3–36.8; O2SAT 97–100; BMI 31.8
--- NOTE | 2023-10-26 08:40 | WPDHPUPDATE1 ---
History and Physical Update Update Date/Time: 10/26/23 08:40 History and Physical has been reviewed, including an updated exam of the patient. There are NO changes in the patient's condition. Underwent debridement of the left hallux last week. Presents now for left hallux amputation. Risks, benefits, and alternatives have been discussed and questions answered. Patient agrees to proceed with procedure.
--- NOTE | 2023-10-26 10:32 | ECG_ITS ---
Measurements Intervals [place] Rate: 82 P: 3 CA: 148 QRS: 17 QRSD: 97 T: 54 QT: 347 QTc: 405 Interpretive Statements SINUS RHYTHM BASELINE ARTIFACT- I, II, III, AVL, AVF, V5 NORMAL ECG COMPARED TO ECG 09/19/2021 14:46:26 NO SIGNIFICANT CHANGES Electronically Signed On 10-26-2023 11:05:28 CDT by Jesús Gomez D.O.
--- NOTE | 2023-10-26 11:15 | SUR.PREOP ---
1115- Patient plans to use walker from home for discharge. Patient denies need for walker training and states he is proficient using walker.
[2023-10-26] MEDS: ACETAMINOPHEN 500 MG TABLET 1000 MG PO (11:48)
[2023-10-26] MEDS: KETOROLAC 15 MG/ML VIAL (*BKC) IV PUSH (11:50)
[2023-10-26 11:56] LABS: Glucose Point of Care 136 mg/dl (65-105)
--- NOTE | 2023-10-26 12:07 | WPDANESEPPF ---
Anes - Initial Pre Proc Eval Procedure: Operation Date: 10/26/23 12:30 Proposed Procedures p Left Hallux Amputation - Liam Cotton MD Date/Time: 10/26/23 12:07 Surgeon: Liam Cotton MD Pre Op Diagnosis: left hallux osteomylitis Patient Data Age: 67 Gender: M Height: 1.78 m Weight: 100.5 kg Last Vital Signs Temp 36.5 C 10/26/23 10:25 Pulse 87 10/26/23 10:25 Resp 16 10/26/23 10:25 BP 142/72 H 10/26/23 10:25 Pulse Ox 100 10/26/23 10:25 O2 Del Method Room Air 10/26/23 10:25 Allergies Allergy/AdvReac Type Severity Reaction Status Date / Time No Known Allergies Allergy Verified 10/26/23 10:48 Home Medications Medication Instructions Recorded Confirmed Type albuterol sulfate 90 mcg/actuation 2 puff inhalation Q6HRT PRN 09/11/21 10/25/23 Rx aerosol inhaler (Proventil HFA) Shortness Of Breath #1 inh sildenafil 100 mg tablet 100 mg PO DAILY PRN sexual 05/13/22 10/25/23 Rx activity #6 tabs ibuprofen 400 mg tablet 400 mg PO Q6H PRN Pain 05/27/22 10/25/23 History metformin 500 mg tablet,extended 1,000 mg PO BID #120 tabs 01/17/23 10/25/23 Rx release 24 hr gabapentin 300 mg capsule 600 mg PO Q8HR 90 days #540 caps 02/21/23 10/25/23 Rx (Neurontin) trazodone 150 mg tablet 150 mg PO QHS #30 tabs 06/13/23 10/25/23 Rx hydrocodone 5 mg-acetaminophen 325 1 tablet PO Q6H PRN pain #100 tabs 09/26/23 10/25/23 Rx mg tablet sulfamethoxazole 800 1 tablet PO Q12H #20 tabs 10/13/23 10/25/23 Rx mg-trimethoprim 160 mg tablet atorvastatin 20 mg tablet 20 mg DAILY 10/25/23 10/25/23 History Laboratory Tests 10/26/23 11:47 POC Capillary Glucose 136 H mg/dl (65-105) Patient hx anesthesia problems: none Family hx anesthesia problems: none Results Review: All pre-operative results and documents have been reviewed as part of the pre-operative evaluation. [facility] Past Medical History Medical History (Updated 10/21/23 @ 11:46 by Liam Cotton MD) Chronic constipation Diabetic foot ulcer associated with diabetes mellitus due to underlying condition Diabetic peripheral neuropathy Hypercholesterolemia Hypertension Impotence Necrotizing fasciitis of ankle and foot Osteomyelitis of foot, left, acute Osteomyelitis of great toe of left foot Overweight (BMI 25.0-29.9) Peripheral artery disease Ulcer of left foot due to type 2 diabetes mellitus Uncontrolled diabetes mellitus Surgical History Surgical History H/O foot surgery 4th toe on the left removed History of amputation of lesser toe of left foot (06/2020) Left 4th toe History of arthroscopy of right knee Status post surgical removal of nail matrix of toe Family History Family History Father , age 62 Myocardial infarct Lung disease Mother , age 73 Lung disease Sibling , age 67 Lung disease Social History Social History Social History: The patient lives in his own home in [place] with his cats. He is retired. Lifelong non-smoker. No current alcohol use but he reports drinking heavier in the past. No illicit substance use. The patient is . He has no biological children. Surrogate decision-maker: Mark Nair (friend). CODE STATUS: Full code. Smoking status: Never smoker Second hand tobacco smoke exposure: No Alcohol intake: current Drinks per week: 1 Substance use: never Substance use type: marijuana Other substance usage details: OCCACIONALLY - NONE FOR PAST COUPLE MONTHS Last use: 2018 Living arrangements: alone Occupation/Education: retired Gender identity (if verbalized by the patient): Male Sexual Orientation (if Verbalized by the Patient): Straight or Heterosexual Spiritual care concerns: No Agree to blood products: Yes Tiaras - Lee Christianson
[2023-10-26] MEDS: ceFAZolin 2 GM/D5W 50 ML 2 GM/50 ML BAG IVPB (12:39)
[2023-10-26] MEDS: BUPivacaine HCL 0.5% 10 ML AMP INFILTRATE (13:30)
[2023-10-26] MEDS: LACTATED RINGERS 1,000 ML 30 ML IV CONT (13:36)
--- NOTE | 2023-10-26 13:51 | P.OP_ITS ---
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 Failed treatment with debridement and antibiotics. Presents now for amputation Findings osteomyelitis involving the distal and proximal phalanx of the left hallux. Description of Procedure Patient identified in the preoperative holding.? Informed consent given.? Operative extremity marked.? Patient received intravenous antibiotics.? Patient brought to the operating room where underwent general anesthetic by anesthesia team.? Positioned supine on operating room table.? Time-out performed confirming the patient, site of the surgery and the plan.? Left foot prepped and draped in usual sterile surgical fashion using Betadine prep solution.? There was an ulcer over the dorsal lateral aspect of the hallux which revealed full-thickness necrosis with exposed bone of the distal phalanx.? No ability to heal the wound and no soft tissue coverage of the bone, amputation of the hallux was indicated.? Fifteen blade knife used to make fishmouth shaped incision at the base of the hallux.? Hemostasis controlled with electrocautery.? ? Interphalangeal Joint incised circumferentially with a 15 blade knife and hallux removed and passed off the table.? Thorough irrigation done.? Articular surface of the? proximal phalanx removed with a rongeur and smoothed.? Wound thoroughly irrigated again.? Wound closed with 2 0 prolene interrupted suture and 4 O nylon interrupted sutures for the skin. Sterile dressings applied.? Patient awoke from anesthesia, extubated and taken to the recovery room in stable condition.? All sponge needle and instrument counts correct at the end the case. Estimated Blood Loss 10 Tourniquet Time Total Tourniquet Time: 5 Drains No Packing No Pathology Yes ( Left hallux) Complications None Condition Stable Disposition PACU [facility] Billing Surgery - Charge Forward: Surgery Billing ([id number])
[2023-10-26 13:52] LABS: Glucose Point of Care 115 mg/dl (65-105)
--- NOTE | 2023-10-26 15:20 | ADMGEN ---
This patient, Rhett Spann, was admitted to Medical Room 254-01. Patient/family oriented to hospital policies and general routines including ID bracelet, bed and alarms, visiting hours, pain management, procedures, bathroom and other care routines, personal items, smoking policy, room service/diet, and visiting hours. Information on how to activate the Rapid Response Team has been discussed. Patient/Family are encouraged to report perceived risks to care and to ask questions if they do not understand what they are told or what they should do.
[2023-10-26 16:11] LABS: Estimated CRCL calculation 35 ml/min; Estimated Glomerular Filt Rate 30
[2023-10-26] MEDS: SENNA/DOCUSATE SODIUM TABLET 2 TAB PO (16:18)
[2023-10-26] MEDS: GABAPENTIN 300 MG CAPSULE 600 MG PO ×2 (16:18→20:49)
[2023-10-26 17:03] LABS: Glucose Point of Care 173 mg/dl (65-105)
[2023-10-26] MEDS: ceFAZolin 1 GM/NS 50 ML 1 GM/50 ML BAG IVPB (20:48)
[2023-10-26] MEDS: traZODone HCL 50 MG TABLET 150 MG PO (20:49)
[2023-10-27 01:34] VITALS: BP 138/60; PULSE 81; RESP 18; TEMP 36.8; O2SAT 96
[2023-10-27] MEDS: HYDROcodone/acetaminophen (*CRX) 5-325 MG TABLET 1 TAB PO ×2 (03:11→09:17)
[2023-10-27 03:12] LABS: Glucose Point of Care 165 mg/dl (65-105)
[2023-10-27 04:45] VITALS: BP 129/66; PULSE 81; RESP 20; TEMP 36.4; O2SAT 98
[2023-10-27] MEDS: ceFAZolin 1 GM/NS 50 ML 1 GM/50 ML BAG IVPB ×2 (05:27→13:04)
[2023-10-27] MEDS: GABAPENTIN 300 MG CAPSULE 600 MG PO ×2 (05:28→13:04)
[2023-10-27 05:42] LABS: Basophils Percent Auto 0.3 % (0.2-1.2); Eosinophils Absolute Auto 0.3 K/mm3 (0-0.3); Eosinophils Percent Auto 4.3 % (0-4.4); Hematocrit 31.9 % (42.0-52.0); Hemoglobin 10.2 g/dL (14.0-18.0); Immature Granulocyte Absolute 0.02 K/mm3 (0.00-0.031); Immature Granulocyte Percent A 0.3 % (0-0.5); Lymphocytes Percent Auto 18.9 % (18.3-44.2); Mean Corpuscular Hemoglobin 30.1 pg (26-34); Mean Corpuscular Volume 94.1 fl (80-100); Mean Platelet Volume 10.1 fl (7.4-10.4); Monocytes Absolute Auto 0.7 K/mm3 (0.1-0.6); Monocytes Percent Auto 11.5 % (2.6-8.5); Neutrophils Absolute Auto 4.1 K/mm3 (1.3-6.7); Neutrophils Percent Auto 64.7 % (45.5-73.1); Platelet Count Result 143 k/mm3 (150-375); Red Blood Count 3.39 M/mm3 (4.6-6.20); Red Cell Distribution Width 12.9 % (11.5-14.5); White Blood Count 6.4 K/mm3 (4.5-10.0)
[2023-10-27 05:56] LABS: Anion Gap 7 mmol/L (8-16); Blood Urea Nitrogen 24 mg/dL (9-20); Calcium 8.7 mg/dL (8.4-10.2); Carbon Dioxide 26 mmol/L (22-30); Chloride 102 mmol/L (98-107); Estimated CRCL calculation 39 ml/min; Estimated Glomerular Filt Rate 33; Glucose 152 mg/dL (65-110); Sodium 135 mmol/L (137-145)
[2023-10-27 06:16] VITALS: O2SAT 97
[2023-10-27 07:26] LABS: Hemoglobin A1C 7.1 % (<5.7)
--- NOTE | 2023-10-27 08:29 | P.PNAN_ITS ---
Anes - Prog Note Post-Op Date/Time: 10/27/23 08:29 Vital Signs: Last Vital Signs Temp 36.4 C 10/27/23 04:45 Pulse 81 10/27/23 04:45 Resp 20 10/27/23 04:45 BP 129/66 10/27/23 04:45 Pulse Ox 97 10/27/23 06:16 O2 Del Method Room Air 10/27/23 06:16 O2 Flow Rate 8 10/26/23 13:36 Pain Score (VAS): 0 I/O: Intake & Output 10/26/23 10/27/23 10/27/23 23:59 07:59 15:59 Intake Total 390 350 Output Total 400 1050 Balance -10 -700 Laboratory Tests 10/27/23 05:32 10/27/23 05:32 10/26/23 10/26/23 10/26/23 11:47 13:40 15:50 WBC RBC Hgb Hct MCV MCH MCHC RDW Plt Count MPV Immature Gran % (Auto) Neut % (Auto) Lymph % (Auto) [place] % (Auto) Eos % (Auto) Baso % (Auto) Lymph # (Auto) [place] # (Auto) Eos # (Auto) Baso # (Auto) Abs Immat Gran (auto) Absolute Neuts (auto) Absolute Nucleated RBC Nucleated RBC % Sodium Potassium Chloride Carbon Dioxide Anion Gap BUN Creatinine 2.20 H Estim Creat Clear Calc 35 Estimated GFR 30 L Glucose POC Capillary Glucose 136 H 115 H Hemoglobin A1c Calcium 10/26/23 10/26/23 10/27/23 17:00 19:46 05:32 WBC 6.4 RBC 3.39 L Hgb 10.2 L Hct 31.9 L MCV 94.1 MCH 30.1 MCHC 32.0 RDW 12.9 Plt Count 143 L D MPV 10.1 Immature Gran % (Auto) 0.3 Neut % (Auto) 64.7 Lymph % (Auto) 18.9 [place] % (Auto) 11.5 H Eos % (Auto) 4.3 Baso % (Auto) 0.3 Lymph # (Auto) 1.20 [place] # (Auto) 0.7 H Eos # (Auto) 0.3 Baso # (Auto) 0.0 Abs Immat Gran (auto) 0.02 Absolute Neuts (auto) 4.1 Absolute Nucleated RBC 0.000 Nucleated RBC % 0.0 Sodium 135 L Potassium 5.0 Chloride 102 Carbon Dioxide 26 Anion Gap 7 L BUN 24 H Creatinine 2.00 H Estim Creat Clear Calc 39 Estimated GFR 33 L Glucose 152 H POC Capillary Glucose 173 H 165 H Hemoglobin A1c 7.1 H Calcium 8.7 Patient Feedback: Patient satisfied with anesthetic care.
[2023-10-27 08:37] LABS: Glucose Point of Care 131 mg/dl (65-105)
[2023-10-27] MEDS: SENNA/DOCUSATE SODIUM TABLET 2 TAB PO (09:17)
[2023-10-27] MEDS: ATORVASTATIN 20 MG TABLET PO (09:17)
[2023-10-27] MEDS: polyethylene glycoL 3350 17 GM POWD.PACK PO (09:18)
[2023-10-27 10:23] VITALS: BP 122/63; PULSE 86; RESP 18; TEMP 36.4; O2SAT 99
--- NOTE | 2023-10-27 10:51 | PM.PNORT ---
Progress Note: A&P Assessment and Plan (1) Osteomyelitis of great toe of left foot: Code(s): M86.9 - Osteomyelitis, unspecified Status: Acute Assessment and Plan: Postoperative day 1 left hallux amputation. Surgical findings reviewed with the patient. Dressing changed today. Finish out the antibiotics and then discharge home. Oral antibiotics at. Daily dressing change. Weightbear with fracture shoe. Follow up in wound clinic in 1 week. Subjective Subjective Date/Time Seen: 10/27/23 10:51 Post Op day: 1 Principal diagnosis: lt hallux ulcer Interval history: States feeling better since surgery. Minimal complaints of pain left foot. Exam Const: General: healthy appearing; No in distress or confusion Orientation/consciousness: patient oriented x3 and No confusion HENMT: Head: normal to inspection, normocephalic and atraumatic Eyes: Conjunctivae: conjunctivae normal Sclera: sclerae normal Resp: Effort & Inspection: normal respiratory effort and no audible wheezes Neuro: General: patient oriented x3 and No confusion Extrem: Other: Dressing changed left foot. Hallux incision clean dry and intact. Skin viable. Swelling and erythema improved. Negative Homans. Psych: Affect: normal affect Objective Data Vital Signs Vital Signs: Vital Signs - 24 hr 10/26/23 13:36 10/26/23 13:50 10/26/23 14:05 Temperature 97.5 F L Pulse Rate 87 83 81 Respiratory Rate 12 14 12 Blood Pressure 146/82 H 141/76 H 154/74 H Pulse Oximetry 100 100 100 Oxygen Delivery Simple Face Mask Room Air Room Air Oxygen Flow Rate 8 10/26/23 14:20 10/26/23 14:35 10/26/23 14:50 Temperature Pulse Rate 82 78 80 Respiratory Rate 14 14 14 Blood Pressure 144/75 H 157/77 H 155/80 H Pulse Oximetry 98 99 99 Oxygen Delivery Room Air Room Air Room Air Oxygen Flow Rate 10/26/23 15:26 10/26/23 15:41 10/26/23 15:20 Temperature 98.2 F 98.1 F Pulse Rate 84 81 Respiratory Rate 16 16 Blood Pressure 140/82 147/80 H Pulse Oximetry 97 99 99 Oxygen Delivery Room Air Oxygen Flow Rate 10/26/23 16:45 10/26/23 20:59 10/27/23 01:34 Temperature 97.6 F 97.4 F L 98.3 F Pulse Rate 76 82 81 Respiratory Rate 16 21 H 18 Blood Pressure 117/64 128/58 L 138/60 Pulse Oximetry 99 100 96 Oxygen Delivery Oxygen Flow Rate 10/27/23 06:16 10/27/23 04:45 10/27/23 09:20 Temperature 97.6 F Pulse Rate 81 Respiratory Rate 20 Blood Pressure 129/66 Pulse Oximetry 97 98 Oxygen Delivery Room Air Room Air Oxygen Flow Rate 10/27/23 10:23 Temperature 97.6 F Pulse Rate 86 Respiratory Rate 18 Blood Pressure 122/63 Pulse Oximetry 99 Oxygen Delivery Oxygen Flow Rate Intake/Output Intake/Output: Intake & Output 10/24/23 10/25/23 10/26/23 10/27/23 23:59 23:59 23:59 23:59 Intake Total 640 590 Output Total 400 1300 Balance 240 -710 Meds/Results Medications: Active Medications Generic Name Dose Route Start Last Admin Trade Name Freq PRN Reason Stop Dose Admin Acetaminophen 650 mg 10/26/23 15:00 Acetaminophen 325 Mg Tablet PO Q6H PRN Pain or Fever Hydrocodone Bitart/Acetaminophen 1 tab 10/26/23 15:00 10/27/23 09:17 Hydrocodone/Acetaminophen (*Crx) 5-325 Mg Tablet PO 1 tab Q6H PRN Administration PAIN RATED 4-6 Albuterol 2 puff 10/26/23 15:00 Albuterol Sulfate (*Sp) Aerosol 1 Puff INHALATION Q6HRT PRN Shortness Of Breath Atorvastatin Calcium 20 mg 10/27/23 09:00 10/27/23 09:17 Atorvastatin 20 Mg Tablet PO 20 mg DAILY KAYCE Administration Dextrose 12.5 gm 10/26/23 15:00 Dextrose 50% 25 Gm/50 Ml Syringe IV PUSH PRN PRN Hypoglycemia Protocol Diazepam 5 mg 10/26/23 15:00 Diazepam (*Crx) 5 Mg Tablet PO Q8H PRN Muscle Spasm Gabapentin 600 mg 10/26/23 15:00 10/27/23 05:28 Gabapentin 300 Mg Capsule PO 600 mg Q8HR KAYCE Administration Glucagon 1 mg 10/26/23 1
--- NOTE | 2023-10-27 11:00 | PCDIET ---
Physician consult for blood sugar education. See Nutritional Teaching Intervention. Thank you for the consult.
--- NOTE | 2023-10-27 11:01 | PM.DS ---
DS: Admitting Diagnosis Discharge Date 10/27/2023 Admitting Diagnosis left hallux osteomyelitis DS: Discharge Diagnosis Discharge Diagnosis (1) Osteomyelitis of great toe of left foot: Code(s): M86.9 - Osteomyelitis, unspecified Status: Acute Assessment and Plan: daily dressing changes. Postoperative shoe when up. Continue oral antibiotics. DS: Summary Hospital Course Reason for hospitalization: Left diabetic toe ulcer with infection, hallux osteomyelitis. Hospital Course: Left diabetic toe infection and ulcer. Treated with oral antibiotics without improvement. Now with exposed bone and osteomyelitis. Presents for operative treatment. Taken to the operating room October 25 and underwent left hallux amputation. Tolerated procedure without incident. Admitted to the floor postoperatively. 24 hours of IV antibiotics. Dressing change on postop day 1. Patient is stable and cleared for discharge. Status at Discharge Cognitive/behavioral status at discharge: Stable Functional status at discharge: independent ambulation Overall status at discharge: patient is back to baseline Time Spent with Patient Time attestation: Total time spent providing and/or coordinating discharge services: Exam Const: General: healthy appearing; No in distress or confusion Orientation/consciousness: patient oriented x3 and No confusion HENMT: Head: normal to inspection, normocephalic and atraumatic Eyes: Conjunctivae: conjunctivae normal Sclera: sclerae normal Resp: Effort & Inspection: normal respiratory effort and no audible wheezes Neuro: General: patient oriented x3 and No confusion Extrem: Other: Dressing changed left foot. Hallux incision clean dry and intact. Skin viable. Swelling and erythema improved. Negative Homans. Psych: Affect: normal affect DS: Data Data Completed and Pending Pending studies at discharge: Pending at discharge 10/26/23 13:20 Surgical [PTH] Routine Labs on day of discharge: Labs from last 24 hours 10/27/23 10/27/23 10/26/23 08:34 05:32 19:46 WBC 6.4 RBC 3.39 L Hgb 10.2 L Hct 31.9 L MCV 94.1 MCH 30.1 MCHC 32.0 RDW 12.9 Plt Count 143 L D MPV 10.1 Immature Gran % (Auto) 0.3 Neut % (Auto) 64.7 Lymph % (Auto) 18.9 [place] % (Auto) 11.5 H Eos % (Auto) 4.3 Baso % (Auto) 0.3 Lymph # (Auto) 1.20 [place] # (Auto) 0.7 H Eos # (Auto) 0.3 Baso # (Auto) 0.0 Abs Immat Gran (auto) 0.02 Absolute Neuts (auto) 4.1 Absolute Nucleated RBC 0.000 Nucleated RBC % 0.0 Sodium 135 L Potassium 5.0 Chloride 102 Carbon Dioxide 26 Anion Gap 7 L BUN 24 H Creatinine 2.00 H Estim Creat Clear Calc 39 Estimated GFR 33 L Glucose 152 H POC Capillary Glucose 131 H 165 H Hemoglobin A1c 7.1 H Calcium 8.7 10/26/23 10/26/23 10/26/23 17:00 15:50 13:40 WBC RBC Hgb Hct MCV MCH MCHC RDW Plt Count MPV Immature Gran % (Auto) Neut % (Auto) Lymph % (Auto) [place] % (Auto) Eos % (Auto) Baso % (Auto) Lymph # (Auto) [place] # (Auto) Eos # (Auto) Baso # (Auto) Abs Immat Gran (auto) Absolute Neuts (auto) Absolute Nucleated RBC Nucleated RBC % Sodium Potassium Chloride Carbon Dioxide Anion Gap BUN Creatinine 2.20 H Estim Creat Clear Calc 35 Estimated GFR 30 L Glucose POC Capillary Glucose 173 H 115 H Hemoglobin A1c Calcium 10/26/23 11:47 WBC RBC Hgb Hct MCV MCH MCHC RDW Plt Count MPV Immature Gran % (Auto) Neut % (Auto) Lymph % (Auto) [place] % (Auto) Eos % (Auto) Baso % (Auto) Lymph # (Auto) [place] # (Auto) Eos # (Auto) Baso # (Auto) Abs Immat Gran (auto) Absolute Neuts (auto) Absolute Nucleated RBC Nucleated RBC % Sodium Potassium Chloride Carbon Dioxide Anion Gap BUN Creatinine Estim Creat
[2023-10-27 11:54] LABS: Glucose Point of Care 263 mg/dl (65-105)
--- NOTE | 2023-10-31 11:05 | PCCDE ---
10/31/23 [facility] did not have the opportunity to see pt during inpatient (>24 hrs). Reached out by phone today (11:05 am ) Message left including direct call back number.
== END 2023-10-27 14:50 | disposition home or self-care (01) ==
LOC: ANHSURGERY 10:13 → ANH2MED 17:50
PROVIDERS: PCP Family Medicine Adolescent Medicine; Visit Provider Orthopaedic Surgery
PROC: (CPT 28825; principal; 2023-10-26 12:30)
DX: E11.69 Type 2 diabetes mellitus with other specified complication (principal); M86.172 Other acute osteomyelitis, left ankle and foot; E11.621 Type 2 diabetes mellitus with foot ulcer; L97.526 Non-pressure chronic ulcer of other part of left foot with bone involvement without evidence of necrosis; E11.42 Type 2 diabetes mellitus with diabetic polyneuropathy; E11.51 Type 2 diabetes mellitus with diabetic peripheral angiopathy without gangrene; E11.3312 Type 2 diabetes mellitus with moderate nonproliferative diabetic retinopathy with macular edema, left eye; I10 Essential (primary) hypertension; E78.00 Pure hypercholesterolemia, unspecified; Z79.4 Long term (current) use of insulin; Z79.51 Long term (current) use of inhaled steroids; Z79.84 Long term (current) use of oral hypoglycemic drugs; E66.9 Obesity, unspecified; Z68.31 Body mass index [BMI] 31.0-31.9, adult
CPT/HCPCS: 28825; 36415; 80048; 82565; 82948; 83036; 85025; 88305; 88311; 93005; A9270; J0690; J1885; J2250; J2371; J2405; J2704; J3010; J7120

== ENCOUNTER 2023-11-15 07:08 | Outpatient (RCR) | payer MEDICARE, MEDICAID, SELFPAY ==
[2023-10-07 10:51] VITALS: BMI 35.6
--- NOTE | 2023-10-21 11:38 | PM.CNOR ---
Assessment and Plan Assessment and plan (1) Diabetic toe ulcer: Qualifiers: Diabetes mellitus type: type 2 Laterality: left Non-pressure ulcer stage: with bone involvement without evidence of necrosis Qualified Code(s): E11.621 - Type 2 diabetes mellitus with foot ulcer; L97.526 - Non-pressure chronic ulcer of other part of left foot with bone involvement without evidence of necrosis Code(s): E11.621 - Type 2 diabetes mellitus with foot ulcer; L97.509 - Non-pressure chronic ulcer of other part of unspecified foot with unspecified severity Status: Acute Assessment and Plan: 1 month left hallux toe ulcer and infection. Not improved with dressing changes and oral antibiotics. Indicated for debridement of necrotic tissue today. continue with oral antibiotics. Daily dressing changes with Betadine and gauze. Foot with postop shoe for protected weight-bearing. Discussed nonoperative and operative treatment options with the patient. Risks and benefits of each as well as alternatives were reviewed. All of the patient's questions were answered. The risks of surgery reviewed including but not limited to: Neurovascular damage, wound complication, infection, blood clot, pulmonary embolus, stroke, myocardial infarction, and anesthetic risks up to and including . Continued pain and possible dysfunction were explained. Specific risks of the procedure including later recurrence of deformity. No guarantees were offered. If hardware used, discussed risk of failure/ breakage and possible need for removal. If complications occur, the patient understands the need for further treatment, possible further surgery. Patient verbalizes understanding and wishes to proceed. PLAN: left hallux excisional debridement to muscle (2) Osteomyelitis of great toe of left foot: Code(s): M86.9 - Osteomyelitis, unspecified Status: Acute Assessment and Plan: left hallux ulcer with exposed distal phalanx. Not improved with conservative measures. Discussed nonoperative and operative treatment options with the patient. Risks and benefits of each as well as alternatives were reviewed. All of the patient's questions were answered. The risks of surgery reviewed including but not limited to: Neurovascular damage, wound complication, infection, blood clot, pulmonary embolus, stroke, myocardial infarction, and anesthetic risks up to and including . Continued pain and possible dysfunction were explained. Specific risks of the procedure including later recurrence of deformity. No guarantees were offered. If hardware used, discussed risk of failure/ breakage and possible need for removal. If complications occur, the patient understands the need for further treatment, possible further surgery. Patient verbalizes understanding and wishes to proceed. PLAN: Left hallux amputation (3) Diabetic peripheral neuropathy: Code(s): E11.42 - Type 2 diabetes mellitus with diabetic polyneuropathy Status: Acute (4) Claudication: Code(s): I73.9 - Peripheral vascular disease, unspecified Status: Acute Assessment and Plan: Patient was referred for blood flow studies. These show elevated ABIs consistent with vascular calcification and decreased TBI his bilaterally. Noted to have bleeding with debridement of hallux which would suggest adequate blood flow to heal amputation. Recommend vascular evaluation to assess for any possible treatment and improvement. (5) Type 2 diabetes mellitus with moderate nonproliferative diabetic retinopathy with macular edema, left eye: Qualifiers: Diabetes mellitus halfway insulin use: with halfway use Qualified Code(s): E11.3312 - Type 2 diabetes mellitus with moderate nonproliferative diabetic retinopathy with macular edema, left eye; Z79.4 - MCC (current) use of insulin Code(s): E11.3312 - Type 2 diabetes mellitus with moderate nonproliferative diabet
--- NOTE | 2023-11-04 09:24 | PM.PNORT ---
Progress Note: A&P Assessment and Plan (1) Diabetic toe ulcer: Qualifiers: Diabetes mellitus type: type 2 Laterality: left Non-pressure ulcer stage: with bone involvement without evidence of necrosis Qualified Code(s): E11.621 - Type 2 diabetes mellitus with foot ulcer; L97.526 - Non-pressure chronic ulcer of other part of left foot with bone involvement without evidence of necrosis Code(s): E11.621 - Type 2 diabetes mellitus with foot ulcer; L97.509 - Non-pressure chronic ulcer of other part of unspecified foot with unspecified severity Status: Acute Assessment and Plan: Patient follow up today in the [facility] wound clinic for reevaluation 1 week, 2 days s/p left 1st ray amputation. Patient doing well. Pain well controlled. Incision well approximated, sutures intact. Patient noncompliant with post op shoe. Wearing normal tennis shoes. Advised against. Follow up in 1.5 weeks for suture removal. 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 Reviewed signs and symptoms of infection including fever, chills, night sweats, nausea, vomiting, diarrhea, changes to the wound bed or purulent drainage to report to the ED immediately. Patient verbalized understanding. Subjective Subjective Date/Time Seen: 11/04/23 09:24 Interval history: 1 week, 2 days s/p LEFT 1st ray amputation by Dr. Cotton. Patient follows up to the [facility] wound clinic today. No new concerns. Pain well controlled. Review of Systems Constitutional: Constitutional: Reports no additional constitutional complaints, Denies chills, Denies fatigue, Denies fever(s), Denies headache(s) and Denies weakness Eyes: Eyes: Denies change in vision ENT: Reports Normal hearing present and Denies headache(s) Cardiovascular: Cardiovascular: Denies chest pain and Denies dyspnea Respiratory: Respiratory: Denies cough, Denies dyspnea and Denies wheezing Gastrointestinal: Gastrointestinal: Denies constipation, Denies diarrhea, Denies nausea and Denies vomiting Genitourinary: Genitourinary: Denies hematuria, Denies dysuria and Denies urinary urgency Musculoskeletal: Musculoskeletal: Reports as per HPI, Denies numbness and Denies tingling Integumentary/Breasts: Skin/Breast: Reports as per HPI Neurologic: Reports as per HPI, Reports Normal hearing present, Denies headache(s), Denies numbness, Denies tingling and Denies weakness Psychiatric: Psychiatric: Reports no additional psychiatric complaints Endocrine: Endocrine: Reports no additional endocrine complaints and Denies fatigue Hematologic/Lymphatic: Hematologic/Lymphatic: Reports no additional hematologic/lymphatic complaints Allergic/Immunologic: Allergic/Immunologic: Reports no additional allergic/immunologic complaints and Denies wheezing Exam Const: General: comfortable Resp: Effort & Inspection: normal respiratory effort Cardio: Rate: regular rate Rhythm: regular rhythm GI: Auscultation: normal bowel sounds Extrem: Left lower extremity: foot (incision well approximated, sutures intact. No signs of infection. ) Details: vascular exam Details: dorsalis pedis pulse present and motor-sensory exam light-touch abnormal [facility] Follow-up [facility]illing [facility] Follow-up Hospital Follow-up: 990
--- NOTE | 2023-11-15 09:10 | PM.PNORT ---
Progress Note: A&P Assessment and Plan (1) Diabetic toe ulcer: Qualifiers: Diabetes mellitus type: type 2 Laterality: left Non-pressure ulcer stage: with bone involvement without evidence of necrosis Qualified Code(s): E11.621 - Type 2 diabetes mellitus with foot ulcer; L97.526 - Non-pressure chronic ulcer of other part of left foot with bone involvement without evidence of necrosis Code(s): E11.621 - Type 2 diabetes mellitus with foot ulcer; L97.509 - Non-pressure chronic ulcer of other part of unspecified foot with unspecified severity Status: Acute Assessment and Plan: Patient follow up today in the [facility] wound clinic for reevaluation 2 weeks, 6 days s/p left 1st ray amputation. Patient doing well. Pain well controlled. Sutures removed today. Incision remains well approximated. New ulcer on the tip of the 2nd toe, claw toe. Does not probe to bone. Begin daily dressing changes with silver gel/foam. Patient requires custom fabricated orthotics. Will send referral. Follow up in the [facility] wound clinic in 4 weeks. (2) Osteomyelitis of great toe of left foot: Code(s): M86.9 - Osteomyelitis, unspecified Status: Acute (3) Type 2 diabetes mellitus with moderate nonproliferative diabetic retinopathy with macular edema, left eye: Qualifiers: Diabetes mellitus director long term care insulin use: with assisted use Qualified Code(s): E11.3312 - Type 2 diabetes mellitus with moderate nonproliferative diabetic retinopathy with macular edema, left eye; Z79.4 - residential (current) use of insulin Code(s): E11.3312 - Type 2 diabetes mellitus with moderate nonproliferative diabetic retinopathy with macular edema, left eye Status: Acute Assessment and Plan: Discussed importance of proper nutrition, diabetic diet and medication compliance for optimal healing. Reviewed signs and symptoms of infection including fever, chills, night sweats, nausea, vomiting, diarrhea, changes to the wound bed or purulent drainage to report to the ED immediately. Patient verbalized understanding. Patient requires custom fabricated orthosis. The patient is unable to be fit with a pre fabricated orthosis. Patient's condition is expected duration of greater than 1 year. Due to the patients orthopedic status with bone and soft tissue deformity, weakness, neurologic involvement custom fabricating is necessary to prevent tissue injury. The patient requires a custom orthosis for the above condition. Subjective Subjective Date/Time Seen: 11/15/23 09:10 Interval history: 2 weeks, 6 days s/p LEFT 1st ray amputation by Dr. Cotton. Patient follows up to the [facility] wound clinic today. No new concerns. Pain well controlled. Review of Systems Constitutional: Constitutional: Reports no additional constitutional complaints, Denies chills, Denies fatigue, Denies fever(s), Denies headache(s) and Denies weakness Eyes: Eyes: Denies change in vision ENT: Reports Normal hearing present and Denies headache(s) Cardiovascular: Cardiovascular: Denies chest pain and Denies dyspnea Respiratory: Respiratory: Denies cough, Denies dyspnea and Denies wheezing Gastrointestinal: Gastrointestinal: Denies constipation, Denies diarrhea, Denies nausea and Denies vomiting Genitourinary: Genitourinary: Denies hematuria, Denies dysuria and Denies urinary urgency Musculoskeletal: Musculoskeletal: Reports as per HPI, Denies numbness and Denies tingling Integumentary/Breasts: Skin/Breast: Reports as per HPI Neurologic: Reports as per HPI, Reports Normal hearing present, Denies headache(s), Denies numbness, Denies tingling and Denies weakness Psychiatric: Psychiatric: Reports no additional psychiatric complaints Endocrine: Endocrine: Reports no additional endocrine complaints and Denies fatigue Hematologic/Lymphatic: Hematologic/Lymphatic: Reports no additional hematologic/lymphatic complaints Allergic/Immunologic: Allergic/Immunologic: Reports
== END 2024-01-05 23:59 | disposition home or self-care (01) ==
LOC: ANHWOC 07:08
PROVIDERS: PCP Family Medicine Adolescent Medicine; Visit Provider Nurse Practitioner Family
DX: E11.621 Type 2 diabetes mellitus with foot ulcer (principal); L97.509 Non-pressure chronic ulcer of other part of unspecified foot with unspecified severity; L03.032 Cellulitis of left toe; L02.612 Cutaneous abscess of left foot
CPT/HCPCS: 11042; 11730; 97597; 99213; A9270; G0463

== ENCOUNTER 2023-12-07 14:02 | Outpatient (CLI) | payer MEDICARE, MEDICAID, SELFPAY ==
--- NOTE | ~2023-12-07 | XR_ITS ---
XR chest 2V 12/07/2023 14:33 Indication: Dyspnea Procedure: 2 view chest Comparison: Comparison to multiple prior studies sequentially, with oldest reviewed study dated 04/2022. Findings: Chronic scarring right mid and lower lung. Calcified granuloma right lower thorax. No pleur al effusion. No pneumothorax. No acute osseous abnormality. Impression: 1: No acute cardiopulmonary disease. Reviewed, dictated and finalized at location B. Impression: 1: No acute cardiopulmonary disease.
[2023-12-07 14:56] LABS: Basophils Absolute Auto 0.1 K/mm3 (0.0-0.1); Basophils Percent Auto 0.5 % (0.2-1.2); Eosinophils Absolute Auto 0.1 K/mm3 (0-0.3); Eosinophils Percent Auto 1.1 % (0-4.4); Hematocrit 36.7 % (42.0-52.0); Hemoglobin 11.8 g/dL (14.0-18.0); Immature Granulocyte Absolute 0.07 K/mm3 (0.00-0.031); Immature Granulocyte Percent A 0.7 % (0-0.5); Lymphocytes Absolute Auto 1.21 K/mm3 (0.9-3.2); Lymphocytes Percent Auto 11.5 % (18.3-44.2); Mean Corpuscular HGB Conc 32.2 g/dl (32-36); Mean Corpuscular Hemoglobin 29.4 pg (26-34); Mean Corpuscular Volume 91.5 fl (80-100); Mean Platelet Volume 10.8 fl (7.4-10.4); Monocytes Absolute Auto 0.7 K/mm3 (0.1-0.6); Neutrophils Absolute Auto 8.3 K/mm3 (1.3-6.7); Neutrophils Percent Auto 79.2 % (45.5-73.1); Platelet Count Result 334 k/mm3 (150-375); Red Blood Count 4.01 M/mm3 (4.6-6.20); Red Cell Distribution Width 13.4 % (11.5-14.5); White Blood Count 10.5 K/mm3 (4.5-10.0)
[2023-12-07 15:07] LABS: Alanine Aminotransferase 35 U/L (6-50); Albumin Level 4.5 g/dL (3.5-5.1); Alkaline Phosphatase 98 U/L (38-126); Anion Gap 11 mmol/L (4-12); Aspartate Amino Transferase 26 U/L (17-59); Bilirubin,Total 0.6 mg/dL (0.2-1.3); Blood Urea Nitrogen 23 mg/dL (9-20); Calcium 10.3 mg/dL (8.4-10.2); Carbon Dioxide 26 mmol/L (22-30); Chloride 101 mmol/L (98-107); Estimated Glomerular Filt Rate 40; Glucose 199 mg/dL (65-110); Potassium 4.5 mmol/L (3.4-5.0); Sodium 138 mmol/L (137-145)
== END 2023-12-07 14:03 | disposition home or self-care (01) ==
LOC: ANHLAB 14:06
PROVIDERS: PCP Family Medicine Adolescent Medicine; Visit Provider Nurse Practitioner Family
DX: R06.09 Other forms of dyspnea (principal); K59.09 Other constipation
CPT/HCPCS: 36415; 71046; 80053; 85025

== ENCOUNTER 2023-12-15 13:50 | Observation (INO) | payer MEDICARE, MEDICAID, SELFPAY ==
[2023-12-15] VITALS (11 sets, daily range): BP systolic 101–153; BP diastolic 53–71; PULSE 80–98; RESP 17–20; TEMP 36.1–36.6; O2SAT 97–100; BMI 30.4
--- NOTE | ~2023-12-15 | XR_ITS ---
XR foot LT min 3V 12/16/2023 09:20 Indication: Osteomyelitis Procedure: 4 views left foot Comparison: 10/04/2023 Findings: Status post amputation of the first digit. There is lytic destruction of the residual aspec t of the first proximal phalanx as well as the metatarsal head, suspicious for underlying osteomyelit is. Moderate soft tissue swelling. Lisfranc joint intact. Status post amputation of the fourth metata rsal. There is atherosclerosis. There is calcaneal enthesophytes. Mild osteoarthritis of the midfoot. Impression: 1: Status post amputation of the left first toe at the proximal phalanx. Lytic defects of the proxima l phalanx and metatarsal head are present. There is also lytic destruction of the sesamoid bones. The se findings are compatible with osteomyelitis. Consider correlation with MRI of the foot with contras t to assess the extent of involvement. Reviewed, dictated and finalized at location B. Impression: 1: Status post amputation of the left first toe at the proximal phalanx. Lytic defects of the proximal phalanx and metatarsal head are present. There is also lytic destruction of the sesamoid bones. These findings are compatible with ost eomyelitis. Consider correlation with MRI of the foot with contrast to assess t he extent of involvement.
--- NOTE | ~2023-12-15 | CT_ITS ---
EXAMINATION: CTA chest PE protocol DATE: 12/15/2023 17:15 INDICATION: Chest pain and shortness of breath TECHNIQUE: Computed tomography (CT) pulmonary angiogram of the chest was performed with 100 mL Omnipa que-350 intravenous contrast. Additional 3D reconstructions utilizing coronal maximum intensity proje ction (MIP) were performed. Automated exposure control and iterative reconstruction technique were em ployed. The dose-length product was 717.23 mGy-cm. COMPARISON: None FINDINGS: There is suboptimal contrast opacification of the pulmonary arteries with the peak of the contrast tor lan having passed into the aorta. No pulmonary emboli identified however sensitivity is decreased in the smaller subsegmental pulmonary arteries. There are scattered groundglass and irregular linear opa cities scattered throughout both lungs, significantly improved since the prior study consistent with chronic lung disease related to what appear to be prior COVID pneumonia. Calcified right middle lobe nodule and calcified right hilar and mediastinal lymph nodes and a few scattered hepatic and splenic calcific lesions, all consistent with old granulomatous disease. No pulmonary edema, pleural effusion or pneumothorax. Heart size is normal. Small amount of atherosclerotic coronary artery calcification . No pericardial effusion. No pathologically enlarged thoracic lymphadenopathy. Multiple small gallst ones the dependent aspect of the otherwise normal-appearing gallbladder. Visual is upper abdomen is o therwise unremarkable. Mild scattered degenerative skeletal changes. IMPRESSION: 1. No evident pulmonary emboli with sensitivity decreased in some of the smaller subsegmental pulmona ry arteries due to primarily to suboptimal timing of the contrast bolus. 2. Diffuse bilateral lung disease significantly improved since the prior study likely residual chroni c scarring related to earlier COVID pneumonia. Reviewed, dictated and finalized at location A. IMPRESSION: 1. No evident pulmonary emboli with sensitivity decreased in some of the smalle r subsegmental pulmonary arteries due to primarily to suboptimal timing of the contrast bolus. 2. Diffuse bilateral lung disease significantly improved since the prior study likely residual chronic scarring related to earlier COVID pneumonia.
--- NOTE | ~2023-12-15 | NM_ITS ---
EXAMINATION: NM kaveh stress w perfusion DATE: 12/16/2023 12:11 CDT INDICATION: Chest pain TECHNIQUE: Rest images were obtained following intravenous administration of 11 mCi Tc99m tetrofosmin (Myoview). The patient was infused intravenously with Lexiscan (regadenoson). Then, 33.7 mCi Tc99m t etrofosmin (Myoview) was administered intravenously, and stress images were obtained. Data was recons tructed into short axis and horizontal and vertical long axis SPECT images. Gated SPECT images were a lso obtained. COMPARISON: None. FINDINGS: There is no definite reversible or fixed perfusion abnormality to suggest ischemia or infar ction. There is no segmental wall motion abnormality. Left ventricular ejection fraction measures 7 2%. IMPRESSION: 1. No definite ischemia or infarct. 2. Normal left ventricular ejection fraction measuring 72%. Reviewed, dictated and finalized at location B.
--- NOTE | ~2023-12-15 | US_ITS ---
EXAMINATION: US renal BI DATE: 12/17/2023 15:22 INDICATION: increased creatinine TECHNIQUE: Multiple grayscale and Doppler ultrasound images of the kidneys were obtained. COMPARISON: CT abdomen pelvis 10/31/2017 FINDINGS: The right kidney measures 11.2 x 6.1 x 5.6 cm. The left kidney measures 11 x 1 x 5.2 x 5.0 cm. The ki dneys demonstrate increased parenchymal echogenicity. 1.7 cm simple upper pole cyst. There is no hydr onephrosis. The bladder is well distended and therefore not well evaluated. IMPRESSION: Medical renal disease. Reviewed, dictated and finalized at location K. IMPRESSION: Medical renal disease.
--- NOTE | ~2023-12-15 | XR_ITS ---
EXAMINATION: XR chest 2V DATE: 12/15/2023 14:03 INDICATION: Worsening centralized chest pain TECHNIQUE: PA and lateral views of the chest were obtained. COMPARISON: Chest radiograph dated 12/07/23 and 05/30/[address] dated 09/19/2021 FINDINGS: Calcified right middle lobe nodule consistent with old granulomatous disease. Unchanged small subtle opacities in the right mid and bilateral lower lung zones which have improved since 05/30/2022 consis tent with chronic atelectasis/scarring. No pulmonary edema, pleural effusion or pneumothorax. Heart s ize is normal. Mild thoracic spondylosis and moderate right-sided and mild left-sided osteoarthritis at the shoulders. IMPRESSION: 1. No acute cardiopulmonary disease. 2. Unchanged subtle opacities at the right mid and bilateral lower lung zones consistent with gradual ly improving chronic atelectasis/scarring. Reviewed, dictated and finalized at location A. IMPRESSION: 1. No acute cardiopulmonary disease. 2. Unchanged subtle opacities at the right mid and bilateral lower lung zones c onsistent with gradually improving chronic atelectasis/scarring.
--- NOTE | 2023-12-15 13:52 | ECG_ITS ---
SEE SCANNED COPY FOR CONFIRMED REPORT MTDD
[2023-12-15 14:06] LABS: Basophils Percent Auto 0.4 % (0.2-1.2); Eosinophils Absolute Auto 0.2 K/mm3 (0-0.3); Eosinophils Percent Auto 1.6 % (0-4.4); Hematocrit 34.1 % (42.0-52.0); Immature Granulocyte Absolute 0.05 K/mm3 (0.00-0.031); Immature Granulocyte Percent A 0.5 % (0-0.5); Lymphocytes Absolute Auto 1.05 K/mm3 (0.9-3.2); Lymphocytes Percent Auto 11.3 % (18.3-44.2); Mean Corpuscular HGB Conc 32.3 g/dl (32-36); Mean Corpuscular Hemoglobin 29.1 pg (26-34); Mean Corpuscular Volume 90.2 fl (80-100); Mean Platelet Volume 10.2 fl (7.4-10.4); Monocytes Absolute Auto 0.6 K/mm3 (0.1-0.6); Monocytes Percent Auto 6.7 % (2.6-8.5); Neutrophils Absolute Auto 7.4 K/mm3 (1.3-6.7); Neutrophils Percent Auto 79.5 % (45.5-73.1); Platelet Count Result 282 k/mm3 (150-375); Red Blood Count 3.78 M/mm3 (4.6-6.20); Red Cell Distribution Width 13.6 % (11.5-14.5); White Blood Count 9.3 K/mm3 (4.5-10.0)
[2023-12-15 14:15] LABS: INR 1.2; Prothrombin Time 15.6 Seconds (11.1-14.7)
[2023-12-15 14:16] LABS: Partial Thromboplastin Time 43.5 Seconds (22.3-36.8)
[2023-12-15 14:17] LABS: Alanine Aminotransferase 25 U/L (6-50); Albumin Level 4.1 g/dL (3.5-5.1); Alkaline Phosphatase 95 U/L (38-126); Anion Gap 14 mmol/L (4-12); Aspartate Amino Transferase 21 U/L (17-59); Bilirubin,Total 0.8 mg/dL (0.2-1.3); Blood Urea Nitrogen 22 mg/dL (9-20); Calcium 9.8 mg/dL (8.4-10.2); Carbon Dioxide 21 mmol/L (22-30); Chloride 101 mmol/L (98-107); Estimated CRCL calculation 44 ml/min; Estimated Glomerular Filt Rate 40; Glucose 266 mg/dL (65-110); Lipase 72 U/L (23-300); Potassium 4.3 mmol/L (3.4-5.0); Sodium 136 mmol/L (137-145)
[2023-12-15 14:28] LABS: Troponin I < 0.012 ng/mL (0.000-0.034)
--- NOTE | 2023-12-15 16:55 | ED.CHESTPAIN ---
HPI - Chest Pain General Chief Complaint: Chest Pain <Gabby Fernandez MD - Last Filed: 12/15/23 17:37> Stated Complaint: SOB, Chest pain, syncope <Gabby Fernandez MD - Last Filed: 12/15/23 17:37> Time Seen by Provider: 12/15/23 16:32 <Gabby Fernandez MD - Last Filed: 12/15/23 17:37> Source: patient, RN notes reviewed and old records reviewed <Gabby Fernandez MD - Last Filed: 12/15/23 17:37> Mode of arrival: ambulatory <Gabby Fernandez MD - Last Filed: 12/15/23 17:37> Limitations: no limitations <Gabby Fernandez MD - Last Filed: 12/15/23 17:37> History of Present Illness HPI narrative: This is a 68 year old male with history of multiple medical problems who presents for evaluation of chest pain. Patient reports dull aching pain across his chest for weeks. He states his pain is getting worse and he feels it is radiating up his neck. He also reports shortness of breath and weakness with walking 10 feet. He reports dry cough for weeks. he also has pain with breathing. PAtient states he has been scheduled for outpatient stress test at the end of the month but his symptoms are getting worsen. He reports his chest pain is 5/10. <Gabby Fernandez MD - Last Filed: 12/15/23 17:37> Related Data Home Medications: Home Medications Medication Instructions Recorded Confirmed atorvastatin 20 mg tablet 20 mg DAILY 10/25/23 12/07/23 <Gabby Fernandez MD - Last Filed: 12/15/23 17:37> Allergies/Adverse Reactions: Allergies Allergy/AdvReac Type Severity Reaction Status Date / Time No Known Allergies Allergy Verified 12/15/23 16:14 <Gabby Fernandez MD - Last Filed: 12/15/23 17:37> Review of Systems Constitutional: Constitutional: Reports weakness <Gabby Fernandez MD - Last Filed: 12/15/23 17:37> Cardiovascular: Cardiovascular: Reports chest pain, Reports chest pain at rest, Denies syncope, Denies rapid heart rate, Denies irregular heart rhythm, Denies leg edema, Reports radiating jaw, neck or arm pain and Reports dyspnea <Gabby Fernandez MD - Last Filed: 12/15/23 17:37> Respiratory: Respiratory: Denies chest congestion, Reports cough, Denies hemoptysis, Denies excessive phlegm production, Reports pain on inspiration, Reports pain with cough and Reports dyspnea <Gabby Fernandez MD - Last Filed: 12/15/23 17:37> Gastrointestinal: Gastrointestinal: Denies abdominal pain, Denies hematochezia, Denies diarrhea and Denies vomiting <Gabby Fernandez MD - Last Filed: 12/15/23 17:37> Genitourinary: Genitourinary: Denies hematuria, Denies dysuria, Denies penile discharge and Denies testicular pain <Gabby Fernandez MD - Last Filed: 12/15/23 17:37> Musculoskeletal: Musculoskeletal: Denies joint swelling, Denies loss of height and Denies muscle weakness <Gabby Fernandez MD - Last Filed: 12/15/23 17:37> Neurologic: Denies syncope, Denies focal weakness and Denies weakness <Gabby Fernandez MD - Last Filed: 12/15/23 17:37> [facility] Past Medical History Medical History: Medical History Chronic constipation Diabetic foot ulcer associated with diabetes mellitus due to underlying condition Diabetic peripheral neuropathy Hypercholesterolemia Hypertension Impotence Necrotizing fasciitis of ankle and foot Osteomyelitis of foot, left, acute Osteomyelitis of great toe of left foot Overweight (BMI 25.0-29.9) Peripheral artery disease Ulcer of left foot due to type 2 diabetes mellitus Uncontrolled diabetes mellitus <Gabby Fernandez MD - Last Filed: 12/15/23 17:37> Surgical History Surgical History: Surgical History H/O foot surgery 4th toe on the left removed History of amputation of lesser toe of left foot (06/2020) Left 4th toe History of arthroscopy of right knee Status post surgical removal of nail matrix of toe <Gabby Fernandez
--- NOTE | 2023-12-15 16:57 | ECG_ITS ---
SEE SCANNED COPY FOR CONFIRMED REPORT MTDD
[2023-12-15 17:29] LABS: Troponin I < 0.012 ng/mL (0.000-0.034)
--- NOTE | 2023-12-15 20:15 | ADMGEN ---
This patient, Rhett Spann, was admitted to IMU Room 203-01 at 2004. Patient/family oriented to hospital policies and general routines including ID bracelet, bed and alarms, visiting hours, pain management, procedures, bathroom and other care routines, personal items, smoking policy, room service/diet, and visiting hours. Information on how to activate the Rapid Response Team has been discussed. Patient/Family are encouraged to report perceived risks to care and to ask questions if they do not understand what they are told or what they should do.
[2023-12-15 20:51] LABS: Troponin I < 0.012 ng/mL (0.000-0.034)
[2023-12-15 20:52] LABS: Glucose Point of Care 147 mg/dl (65-105)
--- NOTE | 2023-12-15 22:20 | PM.IMHP ---
H&P: HPI History of Present Illness Date/Time: 12/15/23 22:20 Chief Complaint: SOB, Chest Pain, Syncope Narrative: 68 y/o M presents here with chest pain, syncope, and shortness of breath with PMH of DM, HTN, HLD, osteomyelitis (L foot and L toe), and PAD. Patient presents here from home for further evaluation of chest pain. He reports that he has had a dull ache across his chest for the past year, within the last month it has worsened, and became more severe in the last 2 weeks. Today the chest pain became so pronounced he elected to seek care in the ED. Patient describes chest pain as dull/pressure, 5/10, intermittent radiation into BUE, constant, intensifies intermittently, aggravated with exertion (ambulation used as example), and alleviated by rest. Chest pain is associated with shortness of breath, fatigue, and general weakness. Symptoms have been limiting, patient is not able to walk more than 10 ft without developing symptoms. Also reporting a dry cough for the past few weeks, congestion, rhinorrhea, and pain with inspiration. Patient denies any cardiac history, has scheduled outpatient stress test at the end of this month but given the worsening chest pain he elected to be evaluated here at [place] today. Also had syncopal episode vs fell asleep on Tuesday evening. Patient reports that he pulled up into his driveway and saw the time was 5pm; when he woke back up still in the truck it was 1 am. No other syncopal episodes or daytime sleeping. Reports intermittent palpitations for the last month. Reports weight loss, unintentional, 15-20 lbs, and lost over 1 month. Patient believes this is secondary to lack of appetite but did have episode last week where a smell made him vomit. No other diaphoresis, nausea, vomiting, chills, fever, or body aches. Last COVID infection/pneumonia - 2021. Does intermittently have night sweats, but this has been ongoing for some years. 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 Reports intermittent dark tarry stools for a few years but has become more constant in the past 1-1.5 months, has never had a colonoscopy. No BRB per rectum. Not on a blood thinner. Initial VS at presentation: 97.9? F, HR 95, RR 18, 148/69, and 100% on RA. ED workup showed: No leukocytosis, hemoglobin 11.0, INR 1.2, creatinine 1.7 and GFR 40 (similar to labs on 12/07/2023), glucose 266, troponin negative x3. CXR showed no acute cardiopulmonary disease and unchanged subtle opacities in the right mid and bilateral lower lung zones consistent with gradually improving chronic atelectasis/scarring. CTA of the chest showed no PE and diffuse bilateral lung disease that is significantly improved compared to prior study, likely residual chronic scarring. Review of Systems Review of Systems: All systems reviewed & are unremarkable except as noted in HPI and below PMFSH Past Medical History Medical History Chronic constipation Diabetic foot ulcer associated with diabetes mellitus due to underlying condition Diabetic peripheral neuropathy DM type 2 (diabetes mellitus, type 2) Hypercholesterolemia Hypertension Impotence Necrotizing fasciitis of ankle and foot Osteomyelitis of foot, left, acute Osteomyelitis of great toe of left foot Overweight (BMI 25.0-29.9) Peripheral artery disease Ulcer of left foot due to type 2 diabetes mellitus Surgical History Surgical History H/O foot surgery 4th toe on the left removed History of amputation of lesser toe of left foot (06/2020) Left 4th toe History of arthroscopy of right knee Status post surgical removal of nail matrix of toe Family History Family History Father , age 62 [place]
[2023-12-16] VITALS (12 sets, daily range): BP systolic 103–137; BP diastolic 52–73; PULSE 68–89; RESP 12–20; TEMP 35.8–36.7; O2SAT 96–100; BMI 29.7
--- NOTE | 2023-12-16 | EST_ITS ---
Patient Info Name: Rhett Spann Age: 68 years : 1955 Gender: Male Ht: 70 in Wt: 206 lbs BSA: 2.17 m2 HR: 74 bpm BP: 119 / 69 mmHg Exam Date: 12/16/2023 10:50 AM Exam Location: [facility] Patient Status: Inpatient Admit Date: 12/16/2023 Staff Ordering Physician: Anisa Perez MD Attending Provider: Anisa Perez MD Exercise Technologist: Helena Zepeda RDCS Nurse: Sandy Gillette APN Exam Type: CA stress kaveh w NM Study Info A regadenoson stress test was performed. Summary 1. Normal electrocardiogram. 2. No ST or T-wave abnormalities seen following Lexiscan infusion. 3. Clinically and electrocardiographically uneventful Lexiscan stress test. 4. Myocardial perfusion imaging exam to be reported by Radiology. Protocol: Lexiscan Stress ECG Details Stage: REST Duration (min): 1 min : 13 sec HR (bpm): 74 SBP (mmHg): 119 DBP (mmHg): 69 Stage: REST Duration (min): 6 min : 48 sec HR (bpm): 75 SBP (mmHg): 119 DBP (mmHg): 69 Stage: STAGE 1 Duration (min): 0 min : 59 sec HR (bpm): 79 SBP (mmHg): 123 DBP (mmHg): 70 Stage: RECOVERY Duration (min): 1 min : 0 sec HR (bpm): 88 SBP (mmHg): 123 DBP (mmHg): 70 Stage: RECOVERY Duration (min): 2 min : 0 sec HR (bpm): 89 SBP (mmHg): 123 DBP (mmHg): 70 Stage: RECOVERY Duration (min): 3 min : 0 sec HR (bpm): 90 SBP (mmHg): 116 DBP (mmHg): 61 Stage: RECOVERY Duration (min): 4 min : 0 sec HR (bpm): 88 SBP (mmHg): 116 DBP (mmHg): 61 Stage: RECOVERY Duration (min): 5 min : 0 sec HR (bpm): 91 SBP (mmHg): 116 DBP (mmHg): 58 Stage: RECOVERY Duration (min): 5 min : 2 sec HR (bpm): 91 SBP (mmHg): 116 DBP (mmHg): 58 Rest HR: 75 bpm Peak HR: 92 bpm Rest Sys BP: 119 mmHg Peak Sys BP: 123 mmHg Max Pred HR: 152 bpm % Max Pred HR: 61 % Target HR: 129 bpm Max RPP: 11,316 bpm*mmHg Cardiac Symptoms: None Total Time: 1 min : 0 sec Rest Anderson BP: 69 mmHg Peak Anderson BP: 70 mmHg Total Dose: 0.4 mg Resting ECG Normal electrocardiogram. Stress ECG No ST or T-wave abnormalities seen following Lexiscan infusion. Report Signatures
[2023-12-16 01:56] LABS: Troponin I < 0.012 ng/mL (0.000-0.034)
[2023-12-16 04:25] LABS: Basophils Percent Auto 0.4 % (0.2-1.2); Eosinophils Absolute Auto 0.2 K/mm3 (0-0.3); Eosinophils Percent Auto 2.9 % (0-4.4); Hematocrit 29.3 % (42.0-52.0); Hemoglobin 9.3 g/dL (14.0-18.0); Immature Granulocyte Absolute 0.03 K/mm3 (0.00-0.031); Immature Granulocyte Percent A 0.4 % (0-0.5); Lymphocytes Percent Auto 15.8 % (18.3-44.2); Mean Corpuscular HGB Conc 31.7 g/dl (32-36); Mean Corpuscular Hemoglobin 28.7 pg (26-34); Mean Corpuscular Volume 90.4 fl (80-100); Mean Platelet Volume 11.1 fl (7.4-10.4); Monocytes Absolute Auto 0.8 K/mm3 (0.1-0.6); Monocytes Percent Auto 9.2 % (2.6-8.5); Neutrophils Absolute Auto 5.9 K/mm3 (1.3-6.7); Neutrophils Percent Auto 71.3 % (45.5-73.1); Platelet Count Result 252 k/mm3 (150-375); Red Blood Count 3.24 M/mm3 (4.6-6.20); Red Cell Distribution Width 13.7 % (11.5-14.5); White Blood Count 8.2 K/mm3 (4.5-10.0)
[2023-12-16 04:38] LABS: Alanine Aminotransferase 24 U/L (6-50); Albumin Level 3.7 g/dL (3.5-5.1); Alkaline Phosphatase 81 U/L (38-126); Anion Gap 10 mmol/L (4-12); Aspartate Amino Transferase 23 U/L (17-59); Bilirubin,Total 0.6 mg/dL (0.2-1.3); Blood Urea Nitrogen 24 mg/dL (9-20); Calcium 9.5 mg/dL (8.4-10.2); Carbon Dioxide 23 mmol/L (22-30); Chloride 102 mmol/L (98-107); Cholesterol 133 mg/dL (0-200); Estimated CRCL calculation 46 ml/min; Estimated Glomerular Filt Rate 43; Glucose 200 mg/dL (65-110); HDL Direct 24 mg/dL; Potassium 4.4 mmol/L (3.4-5.0); Sodium 135 mmol/L (137-145); Triglycerides 147 mg/dL (<150)
[2023-12-16 04:40] LABS: Iron 35 ug/dL (49-181)
[2023-12-16 04:46] LABS: LDL Cholesterol Direct 71 mg/dL
[2023-12-16 04:49] LABS: Percent Iron Saturation 17 % (20-50)
[2023-12-16 05:09] LABS: Thyroid Stimulating Hormone Reflex 0.477 uIU/mL (0.465-4.68)
[2023-12-16 05:39] LABS: Folic Acid 4.9 ng/mL (2.76->20)
[2023-12-16] MEDS: NITROGLYCERIN OINTMENT 1 INCH DOSE TRANSDERM ×2 (06:27)
--- NOTE | 2023-12-16 07:38 | PM.IMPN ---
Progress Note: A&P Assessment and Plan (1) Loss of consciousness: Code(s): R40.20 - Unspecified coma Status: Acute (2) Anemia: Code(s): D64.9 - Anemia, unspecified Status: Acute (3) DM type 2 (diabetes mellitus, type 2): Code(s): E11.9 - Type 2 diabetes mellitus without complications Status: Acute (4) Chest pain: Qualifiers: Chest pain type: unspecified Qualified Code(s): R07.9 - Chest pain, unspecified Code(s): R07.9 - Chest pain, unspecified Status: Acute (5) Exertional angina: Code(s): I20.89 - Other forms of angina pectoris Status: Acute (6) Depression: Qualifiers: Depression Type: reactive depression Qualified Code(s): F32.9 - Major depressive disorder, single episode, unspecified Code(s): F32.A - Depression, unspecified Status: Acute Plan 68 y/o M presents here with chest pain, syncope, and shortness of breath with PMH of [id number] diabetes mellitus, depression, HTN, HLD, osteomyelitis (L foot and L toe), CAD, CKD. Initial H&P via Radha Anderson NP Patient presents here from home for further evaluation of chest pain.? He reports that he has had a dull ache across his chest for the past year, within the last month it has worsened, and became more severe in the last 2 weeks. Today the chest pain became so pronounced he elected to seek care in the ED. Patient describes chest pain as dull/pressure, 5/10, intermittent radiation into BUE, constant, intensifies intermittently, aggravated with exertion (ambulation used as example), and alleviated by rest.? Chest pain is associated with shortness of breath, fatigue, and general weakness.? Symptoms have been limiting, patient is not able to walk more than 10 ft without developing symptoms.? Also reporting a dry cough for the past few weeks, congestion, rhinorrhea, and pain with inspiration.? Patient denies any cardiac history, has scheduled outpatient stress test at the end of this month but given the worsening chest pain he elected to be evaluated here at [place] today. Also had syncopal episode vs fell asleep on Tuesday evening. Patient reports that he pulled up into his driveway and saw the time was 5pm; when he woke back up still in the truck it was 1 am. No other syncopal episodes or daytime sleeping. Reports intermittent palpitations for the last month. Reports weight loss, unintentional, 15-20 lbs, and lost over 1 month. Patient believes this is secondary to lack of appetite but did have episode last week where a smell made him vomit. No other diaphoresis, nausea, vomiting, chills, fever, or body aches. Last COVID infection/pneumonia - 2021. Does intermittently have night sweats, but this has been ongoing for some years. 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 Reports intermittent dark tarry stools for a few years but has become more constant in the past 1-1.5 months, has never had a colonoscopy. No BRB per rectum. Not on a blood thinner. Initial VS at presentation:? 97.9? F, HR 95, RR 18, 148/69, and 100% on RA. ED workup showed:? No leukocytosis, hemoglobin 11.0, INR 1.2, creatinine 1.7 and GFR 40 (similar to labs on 12/07/2023), glucose 266, troponin negative x3.? CXR showed no acute cardiopulmonary disease and unchanged subtle opacities in the right mid and bilateral lower lung zones consistent with gradually improving chronic atelectasis/scarring.? CTA of the chest showed no PE and diffuse bilateral lung disease that is significantly improved compared to prior study, likely residual chronic scarring. On December 15 in the morning patient is asymptomatic. Cardiology has been consulted, pending recommendations. The patient has presented with cardiac chest pain. He has multiple risk factors. Will go ahead and perform Lexiscan stress test now. His
[2023-12-16] MEDS: ASPIRIN 81 MG CHEWABLE TABLET PO (08:44)
[2023-12-16] MEDS: PANTOPRAZOLE SODIUM IV 40 MG VIAL IV PUSH (08:44)
[2023-12-16] MEDS: BENZONATATE 100 MG CAPSULE PO ×4 (08:44→16:47)
[2023-12-16] MEDS: DULoxetine HCL 30 MG CAPSULE.DR PO (08:44)
[2023-12-16] MEDS: HYDROcodone/acetaminophen (*CRX) 5-325 MG TABLET 1 TAB PO ×3 (08:44→22:05)
[2023-12-16] MEDS: FLUTICASONE PROPIONATE 0.05% NA SPR 16 GM BTL (*BKC) 2 SPRAY NASAL (08:45)
[2023-12-16] MEDS: BENZOCAINE/MENTHOL (*BKC) 18 EA LOZENGE 1 LOZENGE PO (09:02)
[2023-12-16 09:48] LABS: Influenza A QL RT-PCR Negative (Negative); Influenza B QL RT-PCR Negative (Negative); RSV RNA, RT-PCR Negative (Negative); SARS-CoV-2 RNA PCR Negative (Negative)
--- NOTE | 2023-12-16 11:22 | PM.CNOR ---
Assessment and Plan Assessment and plan (1) DM type 2 (diabetes mellitus, type 2): Qualifiers: Diabetes mellitus fdc insulin use: without fdc use Diabetes mellitus complication status: with neurologic complications Diabetes mellitus complication detail: with autonomic neuropathy Qualified Code(s): E11.43 - Type 2 diabetes mellitus with diabetic autonomic (poly)neuropathy Code(s): E11.9 - Type 2 diabetes mellitus without complications Status: Acute (2) Cellulitis and abscess of toe of left foot: Code(s): L03.032 - Cellulitis of left toe; L02.612 - Cutaneous abscess of left foot Status: Acute Assessment and Plan: patient known for previous left foot infections. Status post hallux and 4th toe amputation. The more recent history includes superficial wound lateral 2nd toe and left foot swelling. No clear signs of infection at this time. Radiographs show previous surgical changes and no acute changes. More concerning are bilateral lower leg petechiae and patient's overall shortness of breath and decreased energy. No specific recommendations for the left foot at this time. Will continue to monitor. May be weight-bearing as tolerated. History of Present Illness HPI Consult date: 12/16/23 Requesting physician: Anisa Perez MD Chief complaint: Unstable angina Narrative: 68-year-old gentleman well known to the Orthopedic service for left foot infection. Originally with necrotizing fasciitis. Underwent 4th toe amputation. More recently osteomyelitis of the hallux which required amputation. Noticed swelling and wound to the 2nd toe over the past several weeks. States has been riding his motorcycle and may have pulled up on the foot to use the pedal. Was also recently seen by Podiatry and started with a splint for the 2nd toe. States that the strap may have been too tight. Has also been complaining of shortness of breath, low energy for the past 2 months. Admitted through the emergency room yesterday. Review of Systems Constitutional: Constitutional: Reports no additional constitutional complaints, Denies chills, Denies fatigue, Denies fever(s), Denies headache(s) and Denies weakness Eyes: Eyes: Denies change in vision ENT: Reports Normal hearing present and Denies headache(s) Cardiovascular: Cardiovascular: Denies chest pain and Denies dyspnea Respiratory: Respiratory: Denies cough, Denies dyspnea and Denies wheezing Gastrointestinal: Gastrointestinal: Denies constipation, Denies diarrhea, Denies nausea and Denies vomiting Genitourinary: Genitourinary: Denies hematuria, Denies dysuria and Denies urinary urgency Musculoskeletal: Musculoskeletal: Reports as per HPI, Denies numbness and Denies tingling Integumentary/Breasts: Skin/Breast: Reports as per HPI Neurologic: Reports as per HPI, Reports Normal hearing present, Denies headache(s), Denies numbness, Denies tingling and Denies weakness Psychiatric: Psychiatric: Reports no additional psychiatric complaints Endocrine: Endocrine: Reports no additional endocrine complaints and Denies fatigue Hematologic/Lymphatic: Hematologic/Lymphatic: Reports no additional hematologic/lymphatic complaints Allergic/Immunologic: Allergic/Immunologic: Reports no additional allergic/immunologic complaints and Denies wheezing PMFSH Past Medical History Medical History Chronic constipation Diabetic foot ulcer associated with diabetes mellitus due to underlying condition Diabetic peripheral neuropathy DM type 2 (diabetes mellitus, type 2) Hypercholesterolemia Hypertension Impotence Necrotizing fasciitis of ankle and foot Osteomyelitis of foot, left, acute Osteomyelitis of great toe of left foot Overweight (BMI 25.0-29.9) Peripheral artery disease Ulcer of left foot due to type 2 diabetes mellitus Surgical History Surgical History (Reviewed 12/16/23 @ 11:24 by Liam Cotton
--- NOTE | 2023-12-16 12:58 | PM.CNCAR ---
Assessment and Plan Assessment and plan (1) Chest pain: Qualifiers: Chest pain type: unspecified Qualified Code(s): R07.9 - Chest pain, unspecified Code(s): R07.9 - Chest pain, unspecified Status: Acute Plan This is a 68-year-old man with a multitude of symptoms. Regarding his chest pain this has been present for approximately a year or more. It is slowly getting worse but symptoms are not suggestive of all at all of myocardial ischemia. His electrocardiogram is unremarkable and his well troponins/biomarkers are negative. A nuclear Lexiscan stress test done a short time ago is normal showing no perfusion abnormalities and a normal ejection fraction. At this point he does not require further cardiac assessment in my opinion. The rest of his assessment will be deferred to the primary team. Cardiology will sign off at this time Marco A Velez MD [facility] History of Present Illness History of Present Illness Consult date/time: 12/16/23 12:58 Reason For Visit: Unstable angina Narrative: This is a very pleasant 68-year-old man I am seeing at the request of the hospitalist today because of chest pain and exertional shortness of breath. The patient states that he has been having episodes of intermittent chest pain for about 1 year. The symptoms are slowly getting more intense and more frequent but they are occurring intermittently without an exertional relationship. He had worsening symptoms on the last couple of days and finally decided to come to the hospital for further evaluation. He is not known to have a heart disease before this. His electrocardiogram is unremarkable he had 3 sets of normal troponin level since being seen in the emergency room and he had a Lexiscan nuclear stress test done at the hospitalist request which is now completed with normal results. He has no perfusion abnormalities and an ejection fraction of more than 70%. The patient reports that he has noticed a gradual decline in his ability to perform activities a as some will worsening lower extremity muscle weakness as well. He does state that he sees a vascular surgeon in [facility] for evaluation of suspected lower extremity arterial insufficiency. History risk factors include hypertension and non insulin-dependent diabetes. Review of Systems Constitutional: Constitutional: Reports fatigue and Reports lethargy Eyes: Eyes: Reports no additional eye complaints ENT: Reports system reviewed and no additional complaints, except as documented Cardiovascular: Cardiovascular: Reports as per HPI Respiratory: Respiratory: Reports no additional respiratory complaints Gastrointestinal: Gastrointestinal: Reports no additional gastrointestinal complaints Musculoskeletal: Musculoskeletal: Reports back pain and Reports myalgias Integumentary/Breasts: Skin/Breast: Reports system reviewed and no additional complaints, except as docu Psychiatric: Psychiatric: Reports no additional psychiatric complaints Endocrine: Endocrine: Reports no additional endocrine complaints Hematologic/Lymphatic: Hematologic/Lymphatic: Reports no additional hematologic/lymphatic complaints Allergic/Immunologic: Allergic/Immunologic: Reports no additional allergic/immunologic complaints PMFSH Past Medical History Medical History Chronic constipation Diabetic foot ulcer associated with diabetes mellitus due to underlying condition Diabetic peripheral neuropathy DM type 2 (diabetes mellitus, type 2) Hypercholesterolemia Hypertension Impotence Necrotizing fasciitis of ankle and foot Osteomyelitis of foot, left, acute Osteomyelitis of great toe of left foot Overweight (BMI 25.0-29.9) Peripheral artery disease Ulcer of left foot due to type 2 diabetes mellitus Surgical History Surgical History H/O foot surgery 4th toe on the left removed
[2023-12-16] MEDS: GABAPENTIN 300 MG CAPSULE 600 MG PO ×3 (13:14→22:05)
--- NOTE | 2023-12-16 14:55 | PC.NURSE ---
This patient, Rhett Spann, was transferred to [[id number]] on 12/16/23 at 1455. Personal belongings sent with patient. Report given to [Natali BROTHERS]. Appropriate documentation sent with patient.
--- NOTE | 2023-12-16 15:03 | ADMGEN ---
This patient, Rhett Spann, was admitted to [address] [facility] Surg Room 313-01 @ 1503. Patient/family oriented to hospital policies and general routines including ID bracelet, bed and alarms, visiting hours, pain management, procedures, bathroom and other care routines, personal items, smoking policy, room service/diet, and visiting hours. Information on how to activate the Rapid Response Team has been discussed. Patient/Family are encouraged to report perceived risks to care and to ask questions if they do not understand what they are told or what they should do.
[2023-12-16 16:07] LABS: Glucose Point of Care 231 mg/dl (65-105)
--- NOTE | 2023-12-16 16:36 | PDONCCN ---
HPI - Date of Consult Date/Time: 12/16/23 16:36 Requesting Physician: Anisa Perez MD Primary Care Provider: Rogelio Monique MD - Consult Narrative Reason for consult: Normocytic anemia Narrative: Rhett Spann is a 68 year old male with history of osteomyelitis of the left foot and left toe, peripheral arterial disease, hyperlipidemia, hypertension and diabetes came into the hospital with shortness of breath chest discomfort and almost 20 lb weight loss since toe surgery done in October 2023. He has been complaining of excessive tiredness and fatigue that is not able to move around much without getting short of breath and fatigue. He report intermittent dark stool. He denies any previous history of stomach surgery. Patient never had a colonoscopy done in the past. Labs on admission showed hemoglobin of 9.3. Other labs showed iron of 35 saturation 17% with elevated C-reactive protein of 16. Creatinine was 1.6 with GFR of 46. B12 was low at 320. Left foot x-ray showed osteomyelitis of the left 1st toe. Cardiology was consulted due to chest discomfort and shortness of breath. Chest CTA showed no evidence of pulmonary embolism. Diffuse bilateral lung disease significantly improved from the previous study. Review of Systems - Review of Systems All systems reviewed & are unremarkable except as noted in HPI and bel - Neurologic Reports hearing normal, Denies syncope, Denies headache(s), Denies focal weakness, Denies numbness, Denies tingling, Denies weakness [facility] Medical History: Medical History (Last Reviewed 12/16/23 @ 11:24 by Liam Cotton MD) Chronic constipation Diabetic foot ulcer associated with diabetes mellitus due to underlying condition Diabetic peripheral neuropathy DM type 2 (diabetes mellitus, type 2) Hypercholesterolemia Hypertension Impotence Necrotizing fasciitis of ankle and foot Osteomyelitis of foot, left, acute Osteomyelitis of great toe of left foot Overweight (BMI 25.0-29.9) Peripheral artery disease Ulcer of left foot due to type 2 diabetes mellitus Surgical History: Surgical History (Last Reviewed 12/16/23 @ 11:24 by Liam Cotton MD) H/O foot surgery 4th toe on the left removed History of amputation of lesser toe of left foot Onset Date: 06/2020 Left 4th toe History of arthroscopy of right knee Status post surgical removal of nail matrix of toe Family History: Family History (Last Reviewed 12/16/23 @ 11:24 by Liam Cotton MD) Father , age 62 Myocardial infarct Lung disease Mother , age 73 Lung disease Sibling , age 67 Lung disease - Social History Social History: Social History (Last Reviewed 12/16/23 @ 11:24 by Liam Cotton MD) Gender Identity: Gender identity (if verbalized by the patient): Male Sexual Orientation: Sexual Orientation (if Verbalized by the Patient): Straight or Heterosexual Alcohol Use: Alcohol intake: former Drinks per week: 1 Alcohol use details: Substance Use: Substance use: former Substance use type: marijuana Last use: 2018 Others: Spiritual care concerns: No Agree to blood products: Yes Living Arrangements: Living arrangements: alone Oppucation/Education: Occupation/Education: retired Smoking Status: Smoking status: Never smoker Second hand tobacco smoke exposure: No Social Determinants of Health: Do You Feel Safe in your Home?: Yes Has the Lack of Transportation Kept You From Medical Appointments or From Getting Medications?: No Within the Past 12 Months, Were You Worried Whether Your Food Would Run Out Before You Got Money to Buy More?: Never True What is Your Housing Situation Today?: I Have Housing Are You Worried That in the Next 2 Months, You May Not Have Your Own Housing to Live In?: No Do You Have Trouble Paying Your Heating Or Electricity Bill?: No Do You H
[2023-12-16] MEDS: CYANOCOBALAMIN INJ 1,000 MCG/ML VIAL 1000 MCG IM (19:04)
[2023-12-16] MEDS: FERROUS SULFATE DRIED 142 MG TABCR PO (19:05)
[2023-12-16 20:15] LABS: Glucose Point of Care 221 mg/dl (65-105)
[2023-12-16] MEDS: traZODone HCL 50 MG TABLET 150 MG PO ×2 (22:05)
[2023-12-17 04:00] VITALS: BP 116/63; PULSE 70; RESP 12; TEMP 37.1; O2SAT 97
[2023-12-17] MEDS: GABAPENTIN 300 MG CAPSULE 600 MG PO ×3 (05:51→21:34)
[2023-12-17] MEDS: HYDROcodone/acetaminophen (*CRX) 5-325 MG TABLET 1 TAB PO ×2 (05:52→18:05)
[2023-12-17 06:23] LABS: Hematocrit 30.4 % (42.0-52.0); Hemoglobin 9.6 g/dL (14.0-18.0); Mean Corpuscular HGB Conc 31.6 g/dl (32-36); Mean Corpuscular Hemoglobin 28.9 pg (26-34); Mean Corpuscular Volume 91.6 fl (80-100); Mean Platelet Volume 10.8 fl (7.4-10.4); Platelet Count Result 220 k/mm3 (150-375); Red Blood Count 3.32 M/mm3 (4.6-6.20); Red Cell Distribution Width 13.6 % (11.5-14.5); White Blood Count 6.8 K/mm3 (4.5-10.0)
[2023-12-17 06:36] LABS: Anion Gap 7 mmol/L (4-12); Blood Urea Nitrogen 21 mg/dL (9-20); Calcium 9.2 mg/dL (8.4-10.2); Carbon Dioxide 25 mmol/L (22-30); Chloride 104 mmol/L (98-107); Estimated CRCL calculation 37 ml/min; Estimated Glomerular Filt Rate 38; Glucose 227 mg/dL (65-110); Magnesium 1.7 mg/dL (1.6-2.3); Potassium 4.2 mmol/L (3.4-5.0); Sodium 136 mmol/L (137-145)
[2023-12-17 07:30] LABS: Glucose Point of Care 239 mg/dl (65-105)
[2023-12-17 07:32] VITALS: BP 120/67; PULSE 69; RESP 18; TEMP 36.1; O2SAT 97
--- NOTE | 2023-12-17 08:52 | PM.PNORT ---
Progress Note: A&P Assessment and Plan (1) Cellulitis and abscess of toe of left foot: Code(s): L03.032 - Cellulitis of left toe; L02.612 - Cutaneous abscess of left foot Status: Acute Assessment and Plan: Chart reviewed. Cardiology and hematology consultations without further etiology. Exam essentially unchanged. Radiograph left foot shows postsurgical changes of the hallux. Exam benign over the hallux amputation site. Doubt acute infection at this time of the 1st ray. Will continue to follow. Subjective Subjective Date/Time Seen: 12/17/23 08:52 Principal diagnosis: shortness of breath Interval history: hospital day 1. Patient resting comfortably. No new complaints. Exam Const: General: comfortable Resp: Effort & Inspection: normal respiratory effort Cardio: Rate: regular rate Rhythm: regular rhythm GI: Auscultation: normal bowel sounds Skin: General skin exam: petechiae ( Bilateral lower legs) Extrem: Left lower extremity: foot (incision healed) Details: vascular exam Details: dorsalis pedis pulse present (faint ) and motor-sensory exam light-touch abnormal Other: New wound on the lateral 2nd toe, claw toe. Minimal depth. Does not probe. No drainage. Mild erythema over the dorsum of the foot. Psych: Mental Status: mental status grossly normal Objective Data Vital Signs Vital Signs: Vital Signs - 24 hr 12/16/23 10:00 12/16/23 11:48 12/16/23 12:00 Temperature 96.4 F L Pulse Rate 80 89 76 Respiratory Rate 20 Blood Pressure 124/67 Pulse Oximetry 100 Oxygen Delivery 12/16/23 12:00 12/16/23 15:17 12/16/23 16:00 Temperature 97.0 F L Pulse Rate 84 Respiratory Rate 20 Blood Pressure 137/55 L Pulse Oximetry 99 Oxygen Delivery Room Air Room Air 12/16/23 20:00 12/16/23 23:37 12/16/23 22:50 Temperature 97.9 F 97.7 F Pulse Rate 73 68 Respiratory Rate 12 14 Blood Pressure 128/73 130/67 Pulse Oximetry 96 99 96 Oxygen Delivery Room Air 12/17/23 04:00 12/17/23 07:32 Temperature 98.7 F 97.0 F L Pulse Rate 70 69 Respiratory Rate 12 18 Blood Pressure 116/63 120/67 Pulse Oximetry 97 97 Oxygen Delivery Intake/Output Intake/Output: Intake & Output 12/14/23 12/15/23 12/16/23 12/17/23 23:59 23:59 23:59 23:59 Intake Total 830 1000 Output Total 650 500 Balance 180 500 Meds/Results Medications: Active Medications Generic Name Dose Route Start Last Admin Trade Name Freq PRN Reason Stop Dose Admin Acetaminophen 650 mg 12/15/23 19:14 Acetaminophen 325 Mg Tablet PO Q4H PRN Mild Pain (1-3) or Fever Hydrocodone Bitart/Acetaminophen 1 tab 12/15/23 22:29 12/17/23 05:52 Hydrocodone/Acetaminophen (*Crx) 5-325 Mg Tablet PO 1 tab Q6H PRN Administration PAIN RATED 4-6 Albuterol 2 puff 12/15/23 22:29 Albuterol Sulfate (*Sp) Aerosol 1 Puff INHALATION Q6HRT PRN Shortness Of Breath Aspirin 81 mg 12/16/23 08:00 12/16/23 08:44 Aspirin 81 Mg Chewable Tablet PO 81 mg DAILY@0800 KAYCE Administration Benzocaine 1 lozenge 12/16/23 08:41 12/16/23 09:02 Benzocaine/Menthol (*Bkc) 18 Ea Lozenge PO 1 lozenge PRN PRN Administration Sore Throat Benzonatate 100 mg 12/15/23 23:25 12/16/23 16:47 Benzonatate 100 Mg Capsule PO 100 mg TID KAYCE Administration Duloxetine HCl 30 mg 12/16/23 09:00 12/16/23 08:44 Duloxetine Hcl 30 Mg Capsule.Dr PO 30 mg DAILY KAYCE Administration Ferrous Sulfate 142 mg 12/16/23 17:00 12/16/23 19:05 Ferrous Sulfate Dried 142 Mg Tabcr PO 142 mg BIDWM KAYCE Administration Fluticasone Propionate 2 spray 12/16/23 09:00 12/16/23 08:45 Fluticasone Propionate 0.05% Na Spr 16 Gm Btl (*Bkc) NASAL 2 spray QAM KAYCE Administration Gabapentin 600 mg 12/15/23 23:00 12/17/23 05:51 Gabapentin 300 Mg Capsule PO 600 mg Q8HR KAYCE Administration Morphine Sulfate 2 mg 12/15/23 19:14 Morphine Sulfate (
[2023-12-17] MEDS: DULoxetine HCL 30 MG CAPSULE.DR PO (08:54)
[2023-12-17] MEDS: ASPIRIN 81 MG CHEWABLE TABLET PO (08:54)
[2023-12-17] MEDS: BENZONATATE 100 MG CAPSULE PO ×3 (08:54→18:04)
[2023-12-17] MEDS: FLUTICASONE PROPIONATE 0.05% NA SPR 16 GM BTL (*BKC) 2 SPRAY NASAL (08:55)
[2023-12-17] MEDS: BENZOCAINE/MENTHOL (*BKC) 18 EA LOZENGE 1 LOZENGE PO (08:56)
[2023-12-17] MEDS: FERROUS SULFATE DRIED 142 MG TABCR PO ×2 (09:01→18:04)
[2023-12-17] MEDS: PANTOPRAZOLE SODIUM IV 40 MG VIAL IV PUSH (09:01)
[2023-12-17 11:27] LABS: Glucose Point of Care 300 mg/dl (65-105)
[2023-12-17 11:36] VITALS: BP 120/61; PULSE 74; RESP 16; TEMP 36.2; O2SAT 98
--- NOTE | 2023-12-17 12:47 | PM.IMPN ---
Progress Note: A&P Assessment and Plan (1) Cellulitis and abscess of toe of left foot: Code(s): L03.032 - Cellulitis of left toe; L02.612 - Cutaneous abscess of left foot Status: Acute Assessment and Plan: cefazolin IV (2) Diabetic toe ulcer: Qualifiers: Diabetes mellitus type: type 2 Laterality: left Non-pressure ulcer stage: with bone involvement without evidence of necrosis Qualified Code(s): E11.621 - Type 2 diabetes mellitus with foot ulcer; L97.526 - Non-pressure chronic ulcer of other part of left foot with bone involvement without evidence of necrosis Code(s): E11.621 - Type 2 diabetes mellitus with foot ulcer; L97.509 - Non-pressure chronic ulcer of other part of unspecified foot with unspecified severity Status: Acute Assessment and Plan: continue with silver sulfadiazine topically (3) DM type 2 (diabetes mellitus, type 2): Qualifiers: Diabetes mellitus senior living insulin use: without senior living use Diabetes mellitus complication status: with neurologic complications Diabetes mellitus complication detail: with autonomic neuropathy Qualified Code(s): E11.43 - Type 2 diabetes mellitus with diabetic autonomic (poly)neuropathy Code(s): E11.9 - Type 2 diabetes mellitus without complications Status: Acute Assessment and Plan: basal and sliding scale insulin empagliflozin for cardiovascular risk reduction and renal risk reduction discussed importance of testing his sugars at home he will obtain equipment from his primary care physician, Dr. Delcid, after discharge (4) Diabetic peripheral neuropathy: Code(s): E11.42 - Type 2 diabetes mellitus with diabetic polyneuropathy Status: Acute Assessment and Plan: B12 replacement (5) Chronic kidney disease, stage 3b: Code(s): N18.32 - Chronic kidney disease, stage 3b Status: Acute Assessment and Plan: ultrasound kidneys as elevated creatinine his recent possibly due to prior therapy for osteomyelitis (6) Chest pain: Qualifiers: Chest pain type: unspecified Qualified Code(s): R07.9 - Chest pain, unspecified Code(s): R07.9 - Chest pain, unspecified Status: Acute Assessment and Plan: resolved. Noncardiac. (7) Dyspnea on exertion: Code(s): R06.09 - Other forms of dyspnea Status: Acute Assessment and Plan: Likely due to a combination of deconditioning, obesity, age-related decrease in pulmonary function (8) Anemia: Code(s): D64.9 - Anemia, unspecified Status: Acute Assessment and Plan: anemia of chronic disease with B12 deficiency and borderline low iron and vitamin B12 Subjective Date/time seen: 12/17/23 12:47 Interval history: was admitted for evaluation of chest pain fatigue and dyspnea thallium unremarkable with good ejection fraction. CTA chest was negative. Currently not having chest pain. Is feels tired. No 3rd rest. No G has chronic diabetic neuropathy. In October he had right 1st toe amputation in myelitis. He does not check his blood sugars brittle there were 200s to 300s. No hypoglycemia. He is not receiving any antibiotics sliding scale insulin at this time. He has been seen by Orthopedics who feels his x-ray changes are chronic and related to previous surgery and that he does not have current osteomyelitis but does have current cellulitis of the right foot. Review of Systems Review of Systems: All systems reviewed & are unremarkable except as noted in HPI and below Exam Narrative: HEENT: PERRL, sclerae nonicteric, pharyngeal mucosa pink and intact SKIN: Dry scaling skin with fissuring over so medial left foot with erythema in and over the 1st toe stump and 2nd toe. There is fissuring over the 2nd toe at the interphalangeal joint. NECK: No JVD CHEST: Clear to auscultation. Normal effort. HEART: NL S1/S2, regular, no murmur ABDOMEN
[2023-12-17] MEDS: ceFAZolin 1 GM/NS 50 ML 1 GM/50 ML BAG IVPB ×2 (14:31→21:34)
[2023-12-17 15:33] VITALS: BP 122/60; PULSE 73; RESP 18; TEMP 36.4; O2SAT 97
[2023-12-17 16:34] LABS: Glucose Point of Care 209 mg/dl (65-105)
[2023-12-17] MEDS: INSULIN ASPART (*BKC) 100 UNITS/ML SUB-Q (18:04)
[2023-12-17 20:09] LABS: Glucose Point of Care 195 mg/dl (65-105)
[2023-12-17 21:17] VITALS: BP 136/68; PULSE 75; RESP 14; TEMP 36.7; O2SAT 100
[2023-12-17] MEDS: INSULIN GLARGINE (*BKC) 100 UNITS/ML 14 UNITS SUB-Q (21:33)
[2023-12-17] MEDS: SILVER SULFADIAZINE 1% CR 50 GM JAR (*BKC) 1 APPLIC TOPICAL (21:33)
[2023-12-17] MEDS: traZODone HCL 50 MG TABLET 150 MG PO (21:34)
--- NOTE | 2023-12-17 21:46 | PC.NURSE ---
Pt requested narcotic pain med. I explained to him that it is prescribed q6 and his last dose was at 1800 therefore he could not get it again until midnight. Pt complained and began getting loud that he was in pain. I explained again that the med was ordered every 6 hours, that the doctor is the one who ordered it that way, and that I have no control over that. Pt argued that he takes it every 4 hours at home to which I calmly explained a third time that the med is ordered by the doctor for every 6 hours and that midnight is the first available time. Pt stated he understands I have no control over it but he still wants it now. I continued administering the scheduled meds and left the room.
[2023-12-18 05:05] VITALS: BP 130/69; PULSE 76; RESP 13; TEMP 36.4; O2SAT 97
[2023-12-18] MEDS: GABAPENTIN 300 MG CAPSULE 600 MG PO ×2 (05:12→13:39)
[2023-12-18] MEDS: ceFAZolin 1 GM/NS 50 ML 1 GM/50 ML BAG IVPB ×2 (05:12→13:40)
[2023-12-18 05:15] LABS: Hematocrit 29.6 % (42.0-52.0); Hemoglobin 9.5 g/dL (14.0-18.0); Mean Corpuscular HGB Conc 32.1 g/dl (32-36); Mean Corpuscular Hemoglobin 29.2 pg (26-34); Mean Corpuscular Volume 91.1 fl (80-100); Mean Platelet Volume 10.8 fl (7.4-10.4); Platelet Count Result 221 k/mm3 (150-375); Red Blood Count 3.25 M/mm3 (4.6-6.20); Red Cell Distribution Width 13.5 % (11.5-14.5); White Blood Count 9.6 K/mm3 (4.5-10.0)
[2023-12-18 05:29] LABS: Albumin Level 3.5 g/dL (3.5-5.1); Anion Gap 7 mmol/L (4-12); Blood Urea Nitrogen 21 mg/dL (9-20); CRP 6.8 mg/dL (<1.0); Calcium 9.3 mg/dL (8.4-10.2); Carbon Dioxide 26 mmol/L (22-30); Chloride 104 mmol/L (98-107); Estimated CRCL calculation 44 ml/min; Estimated Glomerular Filt Rate 47; Glucose 194 mg/dL (65-110); Phosphorus 3.6 mg/dL (2.5-4.5); Potassium 4.6 mmol/L (3.4-5.0); Sodium 137 mmol/L (137-145)
[2023-12-18 05:35] LABS: Hemoglobin A1C 7.2 % (<5.7)
[2023-12-18 05:55] LABS: Thyroid Stimulating Hormone Reflex 0.326 uIU/mL (0.465-4.68)
[2023-12-18 06:20] LABS: Free T4 Free Thyroxine Reflex 1.36 ng/dL (0.78-2.19)
[2023-12-18 06:59] LABS: Total Triiodothyronine (T3) 0.85 NG/ML (0.97-1.69)
--- NOTE | 2023-12-18 07:27 | PM.PNORT ---
Progress Note: A&P Assessment and Plan (1) Cellulitis and abscess of toe of left foot: Code(s): L03.032 - Cellulitis of left toe; L02.612 - Cutaneous abscess of left foot Status: Acute Assessment and Plan: Exam essentially unchanged. Discussed with Hospitalist team. Plan for abx coverage and bs control. Home with oral abx and f/u when stable Subjective Subjective Date/Time Seen: 12/18/23 07:27 Principal diagnosis: shortness of breath Interval history: hospital day 2. Patient resting comfortably. complaints of fatigue/ achey. Exam Const: General: comfortable Resp: Effort & Inspection: normal respiratory effort Cardio: Rate: regular rate Rhythm: regular rhythm GI: Auscultation: normal bowel sounds Skin: General skin exam: petechiae ( Bilateral lower legs) Extrem: Left lower extremity: foot (incision healed) Details: vascular exam Details: dorsalis pedis pulse present (faint ) and motor-sensory exam light-touch abnormal Other: New wound on the lateral 2nd toe, claw toe. Minimal depth. Does not probe. No drainage. Mild erythema over the dorsum of the foot. Psych: Mental Status: mental status grossly normal Objective Data Vital Signs Vital Signs: Vital Signs - 24 hr 12/17/23 07:32 12/17/23 11:36 12/17/23 09:00 Temperature 97.0 F L 97.2 F L Pulse Rate 69 74 Respiratory Rate 18 16 Blood Pressure 120/67 120/61 Pulse Oximetry 97 98 Oxygen Delivery Room Air 12/17/23 15:33 12/17/23 21:17 12/17/23 20:00 Temperature 97.5 F L 98.0 F Pulse Rate 73 75 Respiratory Rate 18 14 Blood Pressure 122/60 136/68 Pulse Oximetry 97 100 Oxygen Delivery Room Air 12/18/23 05:05 Temperature 97.5 F L Pulse Rate 76 Respiratory Rate 13 Blood Pressure 130/69 Pulse Oximetry 97 Oxygen Delivery Intake/Output Intake/Output: Intake & Output 12/15/23 12/16/23 12/17/23 12/18/23 23:59 23:59 23:59 23:59 Intake Total 830 3074 1050 Output Total 650 800 850 Balance 180 2274 200 Meds/Results Medications: Active Medications Generic Name Dose Route Start Last Admin Trade Name Freq PRN Reason Stop Dose Admin Acetaminophen 650 mg 12/15/23 19:14 Acetaminophen 325 Mg Tablet PO Q4H PRN Mild Pain (1-3) or Fever Hydrocodone Bitart/Acetaminophen 1 tab 12/15/23 22:29 12/17/23 18:05 Hydrocodone/Acetaminophen (*Crx) 5-325 Mg Tablet PO 1 tab Q6H PRN Administration PAIN RATED 4-6 Albuterol 2 puff 12/15/23 22:29 Albuterol Sulfate (*Sp) Aerosol 1 Puff INHALATION Q6HRT PRN Shortness Of Breath Aspirin 81 mg 12/16/23 08:00 12/17/23 08:54 Aspirin 81 Mg Chewable Tablet PO 81 mg DAILY@0800 KAYCE Administration Atorvastatin Calcium 20 mg 12/18/23 09:00 Atorvastatin 20 Mg Tablet PO DAILY KAYCE Benzocaine 1 lozenge 12/16/23 08:41 12/17/23 08:56 Benzocaine/Menthol (*Bkc) 18 Ea Lozenge PO 1 lozenge PRN PRN Administration Sore Throat Benzonatate 100 mg 12/15/23 23:25 12/17/23 18:04 Benzonatate 100 Mg Capsule PO 100 mg TID KAYCE Administration Cyanocobalamin 1,000 mcg 12/18/23 09:00 Cyanocobalamin 1,000 Mcg Tablet PO QAM [facility] Dextrose 12.5 gm 12/17/23 13:10 Dextrose 50% 25 Gm/50 Ml Syringe IV PUSH PRN PRN Hypoglycemia Protocol Duloxetine HCl 30 mg 12/16/23 09:00 12/17/23 08:54 Duloxetine Hcl 30 Mg Capsule.Dr PO 30 mg DAILY KAYCE Administration Empagliflozin 10 mg 12/18/23 09:00 Empagliflozin 10 Mg Tablet PO DAILY [facility] Ferrous Sulfate 142 mg 12/16/23 17:00 12/17/23 18:04 Ferrous Sulfate Dried 142 Mg Tabcr PO 142 mg BIDWM KAYCE Administration Fluticasone Propionate 2 spray 12/16/23 09:00 12/17/23 08:55 Fluticasone Propionate 0.05% Na Spr 16 Gm Btl (*Bkc) NASAL 2 spray QAM KAYCE Administration Gabapentin 600 mg 12/15/23 23:00 12/18/23 05:12 Gabapentin 300 Mg Capsule PO 600 mg Q8HR KAYCE Administration Glucagon
[2023-12-18 08:04] LABS: Glucose Point of Care 195 mg/dl (65-105)
[2023-12-18] MEDS: EMPAGLIFLOZIN 10 MG TABLET PO (08:49)
[2023-12-18] MEDS: FLUTICASONE PROPIONATE 0.05% NA SPR 16 GM BTL (*BKC) 2 SPRAY NASAL (08:49)
[2023-12-18] MEDS: CYANOCOBALAMIN 1,000 MCG TABLET 1000 MCG PO (08:49)
[2023-12-18] MEDS: BENZONATATE 100 MG CAPSULE PO ×2 (08:49→12:00)
[2023-12-18] MEDS: ASPIRIN 81 MG CHEWABLE TABLET PO (08:49)
[2023-12-18] MEDS: ATORVASTATIN 20 MG TABLET PO (08:50)
[2023-12-18] MEDS: FERROUS SULFATE DRIED 142 MG TABCR PO (08:50)
[2023-12-18] MEDS: DULoxetine HCL 30 MG CAPSULE.DR PO (08:50)
[2023-12-18] MEDS: SILVER SULFADIAZINE 1% CR 50 GM JAR (*BKC) 1 APPLIC TOPICAL (08:50)
[2023-12-18 09:46] LABS: Appearance Urine Cloudy (Clear); Bacteria Urine None Seen /hpf; Bilirubin Urine Negative (Negative); Blood Urine 3+ (Negative); Color Urine Yellow (Yellow); Glucose Urine UA 2+ mg/dL (Negative); Ketones Urine Negative (Negative); Leukocyte Esterase Ur 1+ LEU/UL (Negative); Nitrate Urine Negative (Negative); Non Pathogenic Casts 0-2; Protein Urine 2+ mg/dL (Negative); RBC Urine >100 /hpf (0-2); Specific Grav Ur 1.021 (1.001-1.035); Squamous Epithelial Cell Urine Occasional /hpf (Few); WBC Urine 51-100 /hpf (0-3); pH Urine 5.5 (5.0-9.0)
[2023-12-18 09:52] LABS: Add Urine Microscopic? YES
[2023-12-18 11:50] LABS: Glucose Point of Care 265 mg/dl (65-105)
[2023-12-18] MEDS: INSULIN ASPART (*BKC) 100 UNITS/ML SUB-Q (11:59)
[2023-12-18 14:00] VITALS: BP 149/68; PULSE 83; RESP 18; TEMP 35.9; O2SAT 100
--- NOTE | 2023-12-18 15:05 | P.DS_ITS ---
DS: Admitting Diagnosis Discharge Date 12/18/2023 Admitting Diagnosis Chest pain DS: Discharge Diagnosis Discharge Diagnosis (1) Cellulitis and abscess of toe of left foot: Code(s): L03.032 - Cellulitis of left toe; L02.612 - Cutaneous abscess of left foot Status: Acute Assessment and Plan: * cefazolin IV (2) Diabetic toe ulcer: Qualifiers: Diabetes mellitus type: type 2 Laterality: left Non-pressure ulcer stage: with bone involvement without evidence of necrosis Qualified Code(s): E11.621 - Type 2 diabetes mellitus with foot ulcer; L97.526 - Non-pressure chronic ulcer of other part of left foot with bone involvement without evidence of necrosis Code(s): E11.621 - Type 2 diabetes mellitus with foot ulcer; L97.509 - Non-pressure chronic ulcer of other part of unspecified foot with unspecified severity Status: Acute Assessment and Plan: * continue with silver sulfadiazine topically (3) DM type 2 (diabetes mellitus, type 2): Qualifiers: Diabetes mellitus complication detail: with autonomic neuropathy Diabetes mellitus complication status: with neurologic complications 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 Delcid, a fter discharge (4) Diabetic peripheral neuropathy: Code(s): E11.42 - Type 2 diabetes mellitus with diabetic polyneuropathy Status: Acute Assessment and Plan: * B12 replacement * Low level possible due to chronic metformin use (5) Chronic kidney disease, stage 3b: Code(s): N18.32 - Chronic kidney disease, stage 3b Status: Acute Assessment and Plan: * ultrasound kidneys c/w chronic kidney disease * discussed avoiding NSAIDs (previously utilized otc ibuprofen) (6) Chest pain: Qualifiers: Chest pain type: unspecified Qualified Code(s): R07.9 - Chest pain, unspecified Code(s): R07.9 - Chest pain, unspecified Status: Acute Assessment and Plan: * resolved. Noncardiac. (7) Dyspnea on exertion: Code(s): R06.09 - Other forms of dyspnea Status: Acute Assessment and Plan: * Likely due to a combination of deconditioning, obesity, post-COVID decrease in pulmonary function (although CT chest was improving) (8) Anemia: Code(s): D64.9 - Anemia, unspecified Status: Acute Assessment and Plan: * anemia of chronic disease with B12 deficiency and borderline low iron (9) Sleep apnea: Code(s): G47.30 - Sleep apnea, unspecified Status: Acute Assessment and Plan: * likely obstructive * need full sleep lab evaluation as outpatient (10) Chronic fatigue: Code(s): R53.82 - Chronic fatigue, unspecified Status: Acute Assessment and Plan: * likely a combination of post COVID syndrome, anemia with low iron and low B12, obstructive sleep apnea, and possible testosterone deficiency (11) Microscopic hematuria: Code(s): R31.29 - Other microscopic hematuria Status: Acute Assessment and Plan:
--- NOTE | 2023-12-18 15:05 | PM.DS ---
DS: Admitting Diagnosis Discharge Date 12/18/2023 Admitting Diagnosis Chest pain DS: Discharge Diagnosis Discharge Diagnosis (1) Cellulitis and abscess of toe of left foot: Code(s): L03.032 - Cellulitis of left toe; L02.612 - Cutaneous abscess of left foot Status: Acute Assessment and Plan: cefazolin IV (2) Diabetic toe ulcer: Qualifiers: Diabetes mellitus type: type 2 Laterality: left Non-pressure ulcer stage: with bone involvement without evidence of necrosis Qualified Code(s): E11.621 - Type 2 diabetes mellitus with foot ulcer; L97.526 - Non-pressure chronic ulcer of other part of left foot with bone involvement without evidence of necrosis Code(s): E11.621 - Type 2 diabetes mellitus with foot ulcer; L97.509 - Non-pressure chronic ulcer of other part of unspecified foot with unspecified severity Status: Acute Assessment and Plan: continue with silver sulfadiazine topically (3) DM type 2 (diabetes mellitus, type 2): Qualifiers: Diabetes mellitus complication detail: with autonomic neuropathy Diabetes mellitus complication status: with neurologic complications 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 Delcid, after discharge (4) Diabetic peripheral neuropathy: Code(s): E11.42 - Type 2 diabetes mellitus with diabetic polyneuropathy Status: Acute Assessment and Plan: B12 replacement Low level possible due to chronic metformin use (5) Chronic kidney disease, stage 3b: Code(s): N18.32 - Chronic kidney disease, stage 3b Status: Acute Assessment and Plan: ultrasound kidneys c/w chronic kidney disease discussed avoiding NSAIDs (previously utilized otc ibuprofen) (6) Chest pain: Qualifiers: Chest pain type: unspecified Qualified Code(s): R07.9 - Chest pain, unspecified Code(s): R07.9 - Chest pain, unspecified Status: Acute Assessment and Plan: resolved. Noncardiac. (7) Dyspnea on exertion: Code(s): R06.09 - Other forms of dyspnea Status: Acute Assessment and Plan: Likely due to a combination of deconditioning, obesity, post-COVID decrease in pulmonary function (although CT chest was improving) (8) Anemia: Code(s): D64.9 - Anemia, unspecified Status: Acute Assessment and Plan: anemia of chronic disease with B12 deficiency and borderline low iron (9) Sleep apnea: Code(s): G47.30 - Sleep apnea, unspecified Status: Acute Assessment and Plan: likely obstructive need full sleep lab evaluation as outpatient (10) Chronic fatigue: Code(s): R53.82 - Chronic fatigue, unspecified Status: Acute Assessment and Plan: likely a combination of post COVID syndrome, anemia with low iron and low B12, obstructive sleep apnea, and possible testosterone deficiency (11) Microscopic hematuria: Code(s): R31.29 - Other microscopic hematuria Status: Acute Assessment and Plan: imaging of upper urinary tract remarkable only for chronic kidney disease need Urology evaluation of lower urinary tract DS: Summary Hospital Course Hospital Course: 60-year-old gentleman was admitted for evaluation of chest pain. CT of the chest was remarkable only for improving some interstitial lung disease thought secondary to prior COVID-19. EKG showed sinus rhythm. Lexiscan thalli
[2023-12-21 09:29] LABS: Soluble Transferrin Receptor 1.52 mg/L (0.76-1.76)
== END 2023-12-18 16:42 | disposition home or self-care (01) ==
LOC: ANHED 18:24 → ANHIMU 23:26 → ANH3MEDSUR 12-18 15:22 → ANHIMU 12-20 07:48
PROVIDERS: Emergency Medicine; Internal Medicine Hematology & Oncology; Student in an Organized Health Care Education/Training Program; Admitting Provider General Practice; Emergency Provider Family Medicine; PCP Family Medicine Adolescent Medicine; Visit Provider Internal Medicine
DX: R07.9 Chest pain, unspecified (principal); E11.621 Type 2 diabetes mellitus with foot ulcer; L97.526 Non-pressure chronic ulcer of other part of left foot with bone involvement without evidence of necrosis; L03.032 Cellulitis of left toe; L02.612 Cutaneous abscess of left foot; R55 Syncope and collapse; R06.09 Other forms of dyspnea; D64.9 Anemia, unspecified; G47.30 Sleep apnea, unspecified; R53.82 Chronic fatigue, unspecified; R31.29 Other microscopic hematuria; I12.9 Hypertensive chronic kidney disease with stage 1 through stage 4 chronic kidney disease, or unspecified chronic kidney disease; E11.22 Type 2 diabetes mellitus with diabetic chronic kidney disease; N18.32 Chronic kidney disease, stage 3b; E11.42 Type 2 diabetes mellitus with diabetic polyneuropathy; E11.51 Type 2 diabetes mellitus with diabetic peripheral angiopathy without gangrene; F32.9 Major depressive disorder, single episode, unspecified; E11.43 Type 2 diabetes mellitus with diabetic autonomic (poly)neuropathy; Z20.822 Contact with and (suspected) exposure to COVID-19; Z79.84 Long term (current) use of oral hypoglycemic drugs; Z79.51 Long term (current) use of inhaled steroids; Z79.891 Long term (current) use of opiate analgesic
CPT/HCPCS: 36415; 71046; 71275; 73630; 76775; 78452; 80048; 80053; 80061; 80069; 81001; 82607; 82728; 82746; 82948; 83036; 83540; 83550; 83690; 83735; 84238; 84439; 84443; 84480; 84484; 85025; 85027; 85610; 85730; 86140; 87637; 93005; 93017; 94762; 96365; 96372; 99285; A9270; A9502; C9113; G0378; J0690; J1815; J2785; J3420; Q9967

== ENCOUNTER 2024-02-25 10:25 | Outpatient (CLI) | payer MEDICARE, MEDICAID, SELFPAY ==
--- NOTE | ~2024-02-25 | MR_ITS ---
MRI of the left foot CLINICAL HISTORY: Cellulitis TECHNIQUE: Sagittal T1-weighted and STIR images, coronal T1-weighted and T2 fat-sat images, and axial T1-weighted and T2 fat-sat images were performed. Following intravenous administration of 17 cc Mult iHance gadolinium, T1-weighted fat-sat imaging was performed in the axial, coronal, and sagittal plan es. FINDINGS: Status post prior amputation of the great toe at the level of the proximal portion of the p roximal phalanx. There is diffuse hypointense T1 marrow signal and destructive change involving the f irst proximal phalangeal remnant and most of the first metatarsal, compatible with osteomyelitis exte nsively involving these osseous structures. There is additional extensive destructive change involvin g the second middle and distal phalanges, compatible with osteomyelitis. Remaining osseous structures demonstrate normal marrow signal. Prior transmetatarsal amputation of the fourth digit. There is nonspecific edema of the plantar musculature of the foot. There is a peripheral enhancing fl uid collection surrounding the proximal phalangeal remnant of the great toe, measuring 1.8 cm in maxi mum diameter. There is additional fluid collection at the region of the second DIP joint, compatible with abscess/septic arthritis, with this fluid collection measuring up to 1.5 cm in maximum diameter. There is mild diffuse soft tissue edema at the great toe and distal aspect of the second digit. No o ther abscess evident. Probable focal soft tissue ulcer at the dorsal aspect of the foot. IMPRESSION: Extensive osteomyelitis and bony destructive change involving the first proximal phalangeal remnant, first metatarsal, and second middle and distal phalanges. Abscess/infected fluid collection surrounding the first proximal phalangeal remnant, as detailed abov e. Additional abscess/septic arthritis, with 1.5 cm fluid collection at the second DIP joint region. These collections are best visualized on axial fat sat postcontrast images. Soft tissue edema at the first and second digits could reflect reactive edema and/or soft tissue infe ction. No other abscess evident. Prior transmetatarsal amputation of the fourth digit. Prior amputation of the great toe, as detailed above. Reviewed, dictated and finalized at location M. IMPRESSION: Extensive osteomyelitis and bony destructive change involving the first proxima l phalangeal remnant, first metatarsal, and second middle and distal phalanges. Abscess/infected fluid collection surrounding the first proximal phalangeal rem nant, as detailed above. Additional abscess/septic arthritis, with 1.5 cm fluid collection at the second DIP joint region. These collections are best visualiz ed on axial fat sat postcontrast images. Soft tissue edema at the first and second digits could reflect reactive edema a nd/or soft tissue infection. No other abscess evident. Prior transmetatarsal amputation of the fourth digit. Prior amputation of the g reat toe, as detailed above.
== END 2024-02-25 10:26 | disposition home or self-care (01) ==
LOC: ANHIMG 10:27
PROVIDERS: PCP Family Medicine Adolescent Medicine; Visit Provider Nurse Practitioner Family
DX: S98.132A Complete traumatic amputation of one left lesser toe, initial encounter (principal); L03.112 Cellulitis of left axilla; L02.612 Cutaneous abscess of left foot; E11.42 Type 2 diabetes mellitus with diabetic polyneuropathy; X58.XXXA Exposure to other specified factors, initial encounter
CPT/HCPCS: 73720; A9577

== ENCOUNTER 2024-03-07 12:03 | Inpatient (IN) | payer MEDICARE, MEDICAID, SELFPAY ==
[2024-03-07] VITALS (8 sets, daily range): BP systolic 110–161; BP diastolic 44–85; PULSE 71–82; RESP 16–20; TEMP 36.3–36.9; O2SAT 99–100; BMI 31.9
--- NOTE | ~2024-03-07 | XR_ITS ---
XR foot LT min 3V 03/07/2024 15:23 Indication: Infection of the left foot Procedure: 4 views left foot Comparison: Comparison to multiple prior studies sequentially, with oldest reviewed study dated 10/2023. Findings: There are changes of prior fourth metatarsal amputation and partial amputation of the first toe. There is extensive deformity of the distal aspect of the first metatarsal with erosive changes and periosteal reaction. There is erosive destruction of the second middle and distal phalanges. Mode rate soft tissue swelling of the first and second digits. Impression: 1: Erosive destruction of the first and second toes, consistent with osteomyelitis. Reviewed, dictated and finalized at location B. Impression: 1: Erosive destruction of the first and second toes, consistent with osteomyeli tis.
[2024-03-07 14:08] LABS: Basophils Absolute Auto 0.1 K/mm3 (0.0-0.1); Basophils Percent Auto 0.9 % (0.2-1.2); Eosinophils Absolute Auto 0.3 K/mm3 (0-0.3); Eosinophils Percent Auto 4.5 % (0-4.4); Hemoglobin 12.3 g/dL (14.0-18.0); Immature Granulocyte Absolute 0.01 K/mm3 (0.00-0.031); Immature Granulocyte Percent A 0.2 % (0-0.5); Lymphocytes Absolute Auto 1.53 K/mm3 (0.9-3.2); Lymphocytes Percent Auto 27.8 % (18.3-44.2); Mean Corpuscular HGB Conc 32.4 g/dl (32-36); Mean Corpuscular Hemoglobin 28.7 pg (26-34); Mean Corpuscular Volume 88.8 fl (80-100); Monocytes Absolute Auto 0.5 K/mm3 (0.1-0.6); Monocytes Percent Auto 8.5 % (2.6-8.5); Neutrophils Absolute Auto 3.2 K/mm3 (1.3-6.7); Neutrophils Percent Auto 58.1 % (45.5-73.1); Platelet Count Result 125 k/mm3 (150-375); Red Blood Count 4.28 M/mm3 (4.6-6.20); Red Cell Distribution Width 14.2 % (11.5-14.5); White Blood Count 5.5 K/mm3 (4.5-10.0)
[2024-03-07] MEDS: PIPERACILLIN/TAZ 4.5G/NS 100ML 4.5 GM/100 ML BAG IVPB ×2 (14:11→18:23)
[2024-03-07 14:17] LABS: Prothrombin Time 13.8 Seconds (11.1-14.7)
[2024-03-07 14:18] LABS: Partial Thromboplastin Time 31.5 Seconds (22.3-36.8)
[2024-03-07 14:20] LABS: Anion Gap 9 mmol/L (4-12); Blood Urea Nitrogen 20 mg/dL (9-20); CRP < 0.5 mg/dL (<1.0); Carbon Dioxide 28 mmol/L (22-30); Chloride 100 mmol/L (98-107); Estimated CRCL calculation 51 ml/min; Estimated Glomerular Filt Rate 47; Glucose 206 mg/dL (65-110); Potassium 4.6 mmol/L (3.4-5.0); Sodium 137 mmol/L (137-145)
[2024-03-07] MEDS: DOXYCYCLINE 100 MG/NS 100 ML 100 MG/100 ML BAG IVPB ×2 (14:49→22:03)
--- NOTE | 2024-03-07 17:55 | ED.WOUNDLAC ---
HPI - Wound/Laceration General Chief Complaint: Wound/Laceration Stated Complaint: sent by grebing Time Seen by Provider: 03/07/24 13:23 History of Present Illness HPI narrative: This is a 68-year-old male with a past medical history significant for hypertension, diabetes, CKD. Patient has a history of left foot ulcerations and previous amputations for diabetic foot ulcerations from diabetes. Patient was seen on an outpatient visit with orthopedic surgeon on the 16 of this month and after evaluation with x-ray images that were concerning for persistent osteomyelitis he was instructed to proceed to the emergency department for admission, IV antibiotics and stabilization. Patient did not seek medical attention during that visit and now presents almost 10 days later for evaluation. According to the patient he was told by his orthopedic surgeon come in today for procedure tomorrow morning. He is describing no pain at this time and has no symptoms other than some scabbing over of a wound of his left lower extremity on the dorsal aspect. He has been taking oral antibiotics but is not sure what doses or what the names of his medications are. Denies any constitutional symptoms such as fever, chills, chest pain shortness Scottie breath, nausea, vomiting, weakness, fatigue. He is able to ambulate. Related Data Allergies Allergy/AdvReac Type Severity Reaction Status Date / Time No Known Allergies Allergy Verified 03/07/24 18:13 Review of Systems Review of Systems: ROS as described above in the HPI [facility] Past Medical History Medical History Chronic anemia Chronic constipation Chronic fatigue Chronic kidney disease, stage 3b Diabetic peripheral neuropathy Hypercholesterolemia Hypertension Obstructive sleep apnea Peripheral artery disease Type 2 diabetes mellitus Surgical History Surgical History History of amputation of lesser toe of left foot (06/2020) Left 4th toe History of arthroscopy of right knee Status post surgical removal of nail matrix of toe Family History Family History Father , age 62 Myocardial infarct Lung disease Mother , age 73 Lung disease Sibling , age 67 Lung disease Social History Social History Social History: Surrogate decision-maker: Mark Nair (friend). Code status: Full code. Smoking status: Never smoker Second hand tobacco smoke exposure: No Alcohol intake: former Drinks per week: 1 Substance use: never Substance use type: marijuana Last use: 2018 Do You Feel Safe in your Home?: Yes Lack of Transportation: No Lack of Food: Sometimes True Current Housing: I Have Housing Concerned About Future Housing: No Difficulty Paying Gas/Electric Bills: YES Difficulty Paying for Meds: No Currently Unemployed: No Education: Decline to Answer Difficulty w/ Childcare or Family Care: No Living arrangements: alone Additional living arrangements comments: . He has no biological children. He lives in his own home in [place] with his cats. Occupation/Education: retired Spiritual care concerns: No Agree to blood products: Yes Exam Narrative: GENERAL: [Well-appearing, well-nourished, and in no acute distress.] HEAD: [Normocephalic, atraumatic.] EYES: [PERRLA and EOMI.] ENT: Nares clear, no rhinorrhea or epistaxis. Mucous membranes moist. NECK: Supple. CHEST: [Clear to auscultation. No respiratory distress.] HEART: [Regular rate and rhythm]. No murmur heard. [Normal peripheral pulses.] ABDOMEN: [Soft, nondistended], [nontender], [No rigidity or guarding] EXTREMITIES: Status post left great toe amputation, overlying scabbing on the dorsal aspect without obvious
--- NOTE | 2024-03-07 18:00 | PM.IMHP ---
H&P: HPI History of Present Illness Date/Time: 03/07/24 18:00 Chief Complaint: Osteomyelitis left foot. Narrative: This is a pleasant 68-year-old male with type 2 diabetes mellitus, chronic kidney disease, and chronic anemia who presented to the emergency department via private vehicle for evaluation of a left foot wound and infection. The patient provides the following history. He has had a wound on the dorsal aspect of his left foot for some time and a recent MRI showed extensive osteomyelitis and evidence of abscessed fluid collection and septic arthritis throughout the foot. He has been on cephalexin and doxycycline reports improvement in a blistered area on the foot though he continued to have a constant aching pain in the foot. He otherwise feels just fine and denies fever, chills, sweats, nausea, and vomiting. He reports that his sugars have been running under 200. In the ED: He was afebrile on arrival with stable vital signs. Labs were significant for WBC count of 5.5, hemoglobin 12.3, platelet 125, creatinine 1.50, glucose 206. Foot x-ray showed erosive destruction of the 1st and 2nd toes consistent with osteomyelitis. He is being admitted in this setting for IV antibiotics and orthopedic consultation. Review of Systems Review of Systems: 12 systems were reviewed and are negative except for as per HPI. [facility] Past Medical History Medical History (Updated 03/07/24 @ 22:26 by Rasheeda Potts PA-C) Chronic anemia Chronic constipation Chronic fatigue Chronic kidney disease, stage 3b Diabetic peripheral neuropathy Hypercholesterolemia Hypertension Obstructive sleep apnea Peripheral artery disease Type 2 diabetes mellitus Surgical History Surgical History (Updated 03/07/24 @ 22:23 by Rasheeda Potts PA-C) History of amputation of lesser toe of left foot (06/2020) Left 4th toe History of arthroscopy of right knee Status post surgical removal of nail matrix of toe Family History Family History Father , age 62 Myocardial infarct Lung disease Mother , age 73 Lung disease Sibling , age 67 Lung disease Social History Social History (Updated 03/07/24 @ 22:24 by Rasheeda Potts PA-C) Social History: Surrogate decision-maker: Mark Nair (friend). Code status: Full code. Smoking status: Never smoker Second hand tobacco smoke exposure: No Alcohol intake: former Drinks per week: 1 Substance use: never Substance use type: marijuana Last use: 2018 Do You Feel Safe in your Home?: Yes Lack of Transportation: No Lack of Food: Sometimes True Current Housing: I Have Housing Concerned About Future Housing: No Difficulty Paying Gas/Electric Bills: YES Difficulty Paying for Meds: No Currently Unemployed: No Education: Decline to Answer Difficulty w/ Childcare or Family Care: No Living arrangements: alone Additional living arrangements comments: . He has no biological children. He lives in his own home in [place] with his cats. Occupation/Education: retired Spiritual care concerns: No Agree to blood products: Yes Meds Home Medications and Allergies Home Medications Medication Instructions Recorded Confirmed Type duloxetine 30 mg capsule,delayed 30 mg PO DAILY #60 caps 12/07/23 03/07/24 Rx release acetaminophen 325 mg tablet 650 mg PO Q4H PRN Mild Pain (1-3) 12/18/23 03/07/24 Rx Or Fever #90 tabs cyanocobalamin (vitamin B-12) 1,000 mcg PO QAM #30 tabs 12/18/23 03/07/24 Rx 1,000 mcg tablet (Vitamin B-12) ferrous sulfate 142 mg (45 mg 142 mg PO BIDWM #60 tabs 12/18/23 03/07/24 Rx iron) tablet,extended release (Slow Release Iron) blood sugar diagnostic (Accu-Chek #100 ea 12/20/23 03/07/24 Rx Guide test strips) blood-glucose meter (Accu-Chek #1 ea 12/20/23 03/07/24 Rx Guide Glucose Meter) lancets (Accu-Chek Softclix #100 e
--- NOTE | 2024-03-07 18:08 | PC.NURSE ---
This patient, Rhett Spann, was admitted to [facility] Surg Room 310-01 at 17:45. Patient/family oriented to hospital policies and general routines including ID bracelet, bed and alarms, visiting hours, pain management, procedures, bathroom and other care routines, personal items, smoking policy, room service/diet, and visiting hours. Information on how to activate the Rapid Response Team has been discussed. Patient/Family are encouraged to report perceived risks to care and to ask questions if they do not understand what they are told or what they should do.
[2024-03-07 22:13] LABS: Glucose Point of Care 222 mg/dl (65-105)
--- NOTE | 2024-03-07 22:16 | PM.CNOR ---
Assessment and Plan Assessment and plan (1) Diabetic infection of left foot: Code(s): E11.628 - Type 2 diabetes mellitus with other skin complications; L08.9 - Local infection of the skin and subcutaneous tissue, unspecified Status: Acute (2) Osteomyelitis of left foot: Qualifiers: Osteomyelitis type: other acute Qualified Code(s): M86.172 - Other acute osteomyelitis, left ankle and foot Code(s): M86.9 - Osteomyelitis, unspecified Status: Acute Assessment and Plan: Continued problems with the left foot with swelling and redness. Now with open ulcer on the dorsum with purulent drainage. No improvement with oral antibiotics. Swelling and redness going back to December 2023. Now with MRI showing changes consistent with osteomyelitis distal 1st metatarsal and distal 2nd toe with abscess formation. Discussed with patient. Option for transmetatarsal amputation versus debridement discussed in detail. Risks, benefits and alternatives reviewed. Patient's questions answered. We recommend he be admitted to the hospital for further workup and laboratory testing with medical stabilization. Start on IV antibiotics. Patient has declined transmetatarsal amputation at this time. He has elected for debridement of the foot including the 1st metatarsal and distal aspect of the 2nd toe with possible salvage. he verbalized understanding of need for possible further surgery. Plan for surgical debridement left foot. Discussed nonoperative and operative treatment options with the patient. Risks and benefits of each as well as alternatives were reviewed. All of the patient's questions were answered. The risks of surgery reviewed including but not limited to: Neurovascular damage, wound complication, infection, blood clot, pulmonary embolus, stroke, myocardial infarction, and anesthetic risks up to and including . Continued pain and possible dysfunction were explained. Specific risks of the procedure including later recurrence of deformity. No guarantees were offered. If hardware used, discussed risk of failure/ breakage and possible need for removal. If complications occur, the patient understands the need for further treatment, possible further surgery. Patient verbalizes understanding and wishes to proceed. PLAN: Left foot debridement, 2nd ray amputation. (3) Amputated toe of left foot: Code(s): S98.132A - Complete traumatic amputation of one left lesser toe, initial encounter Status: Acute (4) Type 2 diabetes mellitus: Qualifiers: Diabetes mellitus complication detail: with polyneuropathy Diabetes mellitus complication status: with neurologic complications Diabetes mellitus buttermaker continuous churn insulin use: without buttermaker continuous churn use Qualified Code(s): E11.42 - Type 2 diabetes mellitus with diabetic polyneuropathy Code(s): E11.9 - Type 2 diabetes mellitus without complications Status: Acute History of Present Illness HPI Consult date: 03/08/24 Requesting physician: Remy Valenzuela MD Chief complaint: Osteomyelitis L great toe Narrative: 68yo known to ortho service for left foot infections. Presented to ER yesterday for left foot swelling and and redness. Has been progressing over the past few weeks. Tried oral antibiotics without improvement. He has had recent fatigue and some shortness of breath. Was evaluated in wound clinic last week and recommended debridement but patient declined and opted for trial of oral antibiotic. Review of Systems Constitutional: Constitutional: Reports no additional constitutional complaints, Denies chills, Denies fatigue, Denies fever(s), Denies headache(s) and Denies weakness Eyes: Eyes: Denies change in vision ENT: Reports Normal hearing present and Denies headache(s) Cardiovascular: Cardiovascular: Denies chest pain and Denies dyspnea Respiratory: Respiratory: Denies cough, Denies dyspnea and Denies wheezing Gastrointestina
--- NOTE | 2024-03-07 22:47 | PCRCNOTE ---
RT spoke with patient regarding a hospital CPAP machine on 03/07/24. Patient states he does not have a CPAP at home and does not want one for his hospital stay. Pt states he has never worn a CPAP machine before. Therefore, CPAP was not brought into patient room.
[2024-03-07] MEDS: CEFEPIME 2 GM/NS 50 ML 2 GM/50 ML BAG IVPB (23:56)
[2024-03-07] MEDS: VANCOMYCIN 1,250 MG/NS 250 ML 1,250 MG/250 ML BAG 166.67 MG IVPB (23:57)
[2024-03-08] VITALS (10 sets, daily range): BP systolic 130–174; BP diastolic 69–88; PULSE 70–80; RESP 12–18; TEMP 36.4–36.9; O2SAT 96–100
[2024-03-08] MEDS: VANCOMYCIN 1,250 MG/NS 250 ML 1,250 MG/250 ML BAG 166.67 MG IVPB (01:58)
[2024-03-08] MEDS: metroNIDAZOLE 500 MG/ISO 100ML 500 MG/100 ML BAG 100 MG IVPB ×2 (02:13→10:10)
[2024-03-08 07:03] LABS: Hemoglobin 11.8 g/dL (14.0-18.0); Mean Corpuscular HGB Conc 32.8 g/dl (32-36); Mean Corpuscular Volume 88.5 fl (80-100); Mean Platelet Volume 12.5 fl (7.4-10.4); Platelet Count Result 124 k/mm3 (150-375); Red Blood Count 4.07 M/mm3 (4.6-6.20); Red Cell Distribution Width 14.1 % (11.5-14.5); White Blood Count 6.3 K/mm3 (4.5-10.0)
--- NOTE | 2024-03-08 07:10 | PC.NURSE ---
To OR per wheelchair.
[2024-03-08 07:17] LABS: Anion Gap 8 mmol/L (4-12); Blood Urea Nitrogen 24 mg/dL (9-20); CRP < 0.5 mg/dL (<1.0); Calcium 8.9 mg/dL (8.4-10.2); Carbon Dioxide 25 mmol/L (22-30); Chloride 104 mmol/L (98-107); Estimated CRCL calculation 38 ml/min; Estimated Glomerular Filt Rate 33; Glucose 163 mg/dL (65-110); Potassium 4.5 mmol/L (3.4-5.0); Sodium 137 mmol/L (137-145)
--- NOTE | 2024-03-08 07:24 | PM.IMPN ---
Progress Note: A&P Assessment and Plan (1) Osteomyelitis of left foot: Qualifiers: Osteomyelitis type: other acute Qualified Code(s): M86.172 - Other acute osteomyelitis, left ankle and foot Code(s): M86.9 - Osteomyelitis, unspecified Status: Acute Assessment and Plan: Left diabetic foot wound with concerns for osteomyelitis on imaging. Patient had been instructed by Ortho on 02/27 to be admitted to the hospital for IV antibiotics and possible amputation but he declined treatment at that time. IV antibiotics with vancomycin, cefepime, metronidazole---de-escalate to zosyn and PO doxycycline. Discussed with ID. Blood cultures ordered Wound cultures sent from OR [facility] [place] for pain Orthopedic consulted, recs appreciated (2) Diabetic infection of left foot: Code(s): E11.628 - Type 2 diabetes mellitus with other skin complications; L08.9 - Local infection of the skin and subcutaneous tissue, unspecified Status: Acute Assessment and Plan: Chronic wound to left foot with previous amputation. Imaging is concerning for osteomyelitis and septic arthritis. Hemoglobin A1C 8.2%. Was 7.2% in 12/2023 Patient is on moderate corrective SSI while inpatient. On Farxiga 5 mg at home which was started in 12/2023, can increase to 10 mg daily. On empagliflozin 10 mg here as Farxiga is non-formulary. A.c. HS Accu-Cheks Hypoglycemia protocol ordered Maintain tight glycemic control for wound healing diabetes educator consulted (3) Chronic kidney disease, stage 3b: Code(s): N18.32 - Chronic kidney disease, stage 3b Status: Acute Assessment and Plan: Baseline creatinine tends to range 1.5 to 2.0, BUN 20-24 Creatinine on admission was 1.5, BUN 20. Creatinine today 2.0, BUN 24 Patient NPO for possible surgery. Started on LR at 100 an hour Trend daily BMP Avoid nephrotoxin agents, renally dose medications (4) Obstructive sleep apnea: Code(s): G47.33 - Obstructive sleep apnea (adult) (pediatric) Status: Acute Assessment and Plan: Home CPAP auto titration orders placed Plan Feeding: NPO for surgery Analgesia: Tylenol versus [place] Thromboembolic prophylaxis: SCDs, Lovenox after surgery Glycemic control: Sliding scale insulin, Accu-Cheks, hypoglycemia protocol. Hemoglobin A1c pending Antibiotics: Cefepime, vanc, Flagyl Disposition: Patient arrives from home with chronic diabetic left foot wound. He is being admitted for IV antibiotics and orthopedic consultation for possible amputation. Patient lives at home alone. PT OT will see him after surgery to assist in disposition. Advance Care Plan I have confirmed that the patient's Advanced Care Plan is present, code status is documented, or surrogate decision maker is listed in patient medical record.: Yes Medication Reconciliation I have utilized all available resources to obtain, update and review the patients current medications (includes all prescriptions, OTC, herbals, cannabis, and nutritional supplements).: Yes Subjective Date/time seen: 03/08/24 07:24 Interval history: This is a pleasant 68-year-old male with type 2 diabetes mellitus, chronic kidney disease, and chronic anemia who presented to the emergency department via private vehicle for evaluation of a left foot wound and infection. 02/26: Patient seen resting in bed in no acute distress. He just returned to his room from surgery. He denies any pain currently. No nausea. He is thirsty and tired. He says that he did not sleep overnight given all the IV antibiotics. Review of Systems Review of Systems: All systems reviewed & are unremarkable except as noted in HPI and below Exam Narrative: General: well appearing, appears stated age. HEENT: normocephalic, atraumatic. Mucous membranes moist. EOMI, PERRLA, bilateral sclera anicteric, no conjunctival injection. Neck supple without JVD, lymphadenopathy, or bruit
--- NOTE | 2024-03-08 07:37 | WPDHPUPDATE1 ---
History and Physical Update Update Date/Time: 03/08/24 07:37 History and Physical has been reviewed, including an updated exam of the patient. There are NO changes in the patient's condition. Risks, benefits, and alternatives have been discussed and questions answered. Patient agrees to proceed with procedure.
[2024-03-08 08:08] LABS: Glucose Point of Care 171 mg/dl (65-105)
--- NOTE | 2024-03-08 08:14 | WPDANESEPPF ---
Anes - Initial Pre Proc Eval Procedure: Operation Date: 03/08/24 08:30 Proposed Procedures p Incision and Drainage Left Diabetic Foot Ulcer, Second Ray Amputation - Liam Cotton MD Date/Time: 03/08/24 08:14 Surgeon: Johana Archibald APRN Pre Op Diagnosis: Osteomyelitis L great toe Patient Data Age: 68 Gender: M Height: 1.78 m Weight: 100.8 kg Last Vital Signs Temp 97.6 F 03/08/24 06:00 Pulse 73 03/08/24 06:00 Resp 18 03/08/24 06:00 BP 148/73 H 03/08/24 06:00 Pulse Ox 98 03/08/24 06:00 O2 Del Method Room Air 03/07/24 20:00 Allergies Allergy/AdvReac Type Severity Reaction Status Date / Time No Known Allergies Allergy Verified 03/07/24 18:13 Home Medications Medication Instructions Recorded Confirmed Type duloxetine 30 mg capsule,delayed 30 mg PO DAILY #60 caps 12/07/23 03/07/24 Rx release acetaminophen 325 mg tablet 650 mg PO Q4H PRN Mild Pain (1-3) 12/18/23 03/07/24 Rx Or Fever #90 tabs cyanocobalamin (vitamin B-12) 1,000 mcg PO QAM #30 tabs 12/18/23 03/07/24 Rx 1,000 mcg tablet (Vitamin B-12) ferrous sulfate 142 mg (45 mg 142 mg PO BIDWM #60 tabs 12/18/23 03/07/24 Rx iron) tablet,extended release (Slow Release Iron) blood sugar diagnostic (Accu-Chek #100 ea 12/20/23 03/07/24 Rx Guide test strips) blood-glucose meter (Accu-Chek #1 ea 12/20/23 03/07/24 Rx Guide Glucose Meter) lancets (Accu-Chek Softclix #100 ea 12/20/23 03/07/24 Rx Lancets) hydrocodone 5 mg-acetaminophen 325 1 tablet PO Q6H PRN PAIN RATED 4-6 01/24/24 03/07/24 Rx mg tablet #50 tabs trazodone 150 mg tablet 150 mg PO QHS #90 tabs 01/24/24 03/07/24 Rx cephalexin 500 mg capsule 500 mg PO Q8H 10 days #30 caps 02/29/24 03/07/24 Rx doxycycline hyclate 100 mg tablet 100 mg PO BID #20 tabs 02/29/24 03/07/24 Rx Laboratory Tests 03/07/24 03/07/24 03/08/24 13:51 22:02 06:19 WBC 5.5 K/mm3 6.3 K/mm3 (4.5-10.0) (4.5-10.0) RBC 4.28 L M/mm3 4.07 L M/mm3 (4.6-6.20) (4.6-6.20) Hgb 12.3 L g/dL 11.8 L g/dL (14.0-18.0) (14.0-18.0) Hct 38.0 L % 36.0 L % (42.0-52.0) (42.0-52.0) MCV 88.8 fl 88.5 fl (80-100) (80-100) MCH 28.7 pg 29.0 pg (26-34) (26-34) MCHC 32.4 g/dl 32.8 g/dl (32-36) (32-36) RDW 14.2 % 14.1 % (11.5-14.5) (11.5-14.5) Plt Count 125 L k/mm3 124 L k/mm3 (150-375) (150-375) MPV 12.0 H fl 12.5 H fl (7.4-10.4) (7.4-10.4) Immature Gran % (Auto) 0.2 % (0-0.5) Neut % (Auto) 58.1 % (45.5-73.1) Lymph % (Auto) 27.8 % (18.3-44.2) Bradley % (Auto) 8.5 % (2.6-8.5) Eos % (Auto) 4.5 H % (0-4.4) Baso % (Auto) 0.9 % (0.2-1.2) Lymph # (Auto) 1.53 K/mm3 (0.9-3.2) Bradley # (Auto) 0.5 K/mm3 (0.1-0.6) Eos # (Auto) 0.3 K/mm3 (0-0.3) Baso # (Auto) 0.1 K/mm3 (0.0-0.1) Abs Immat Gran (auto) 0.01 K/mm3 (0.00-0.031) Absolute Neuts (auto) 3.2 K/mm3 (1.3-6.7) Absolute Nucleated RBC 0.000 K/mm3 (0.0-0.012) Nucleated RBC % 0.0 % (0.0-0.2) PT 13.8 Seconds (11.1-14.7) INR 1.0 APTT 31.5 Seconds (22.3-36.8) Sodium 137 mmol/L 137 mmol/L (137-145) (137-145) Potassium 4.6 mmol/L 4.5 mmol/L (3.4-5.0) (3.4-5.0) Chloride 100 mmol/L 104 mmol/L (98-107) (98-107) Carbon Dioxide 28 mmol/L 25 mmol/L (22-30) (22-30) Anion Gap 9 mmol/L 8 mmol/L (4-12) (4-12) BUN 20 mg/dL 24 H mg/dL (9-20) (9-20) Creatinine 1.50 H mg/dL 2.00 H mg/dL (0.7-1.3) (0.7-1.3) Estim Creat Clear Calc 51 ml/min 38 ml/min Estimated GFR 47 L 33 L (59 - ) (59 - ) Glucose 206 H mg/dL 163 H mg/dL (65-110) (65-110) POC Capillary Glucose 222 H mg/dl (65-105) Hemoglobin A1c Pending Calcium 9.0 mg/dL 8.9 mg/dL
[2024-03-08] MEDS: ACETAMINOPHEN 500 MG TABLET 1000 MG PO (08:19)
[2024-03-08] MEDS: BUPivacaine HCL 0.5% 10 ML AMP 30 ML INFILTRATE (09:09)
[2024-03-08] MEDS: ceFAZolin SODIUM 1 GM VIAL IRRIGATION (09:16)
[2024-03-08] MEDS: LACTATED RINGERS 1,000 ML 30 ML IV CONT ×2 (10:07)
[2024-03-08 10:12] LABS: Glucose Point of Care 143 mg/dl (65-105)
--- NOTE | 2024-03-08 10:26 | W.PM.PROC2 ---
Procedure Note - Detailed Date of Procedure 03/08/24 Pre-op Diagnosis Osteomyelitis L great toe Post-op Diagnosis Same Procedure Performed Left foot transmetatarsal amputation, debridement of diabetic foot ulcer. Surgeon Liam Cotton MD Gis Coordinator 1St trust administrative assistant Anesthesia General Indications 68-year-old gentleman with diabetes and peripheral neuropathy with ongoing left foot problems. Status post hallux amputation for osteomyelitis. Recent MRI demonstrates osteomyelitis of the 1st metatarsal and the 2nd toe. Indicated for debridement. Findings Changes consistent with osteomyelitis of the distal 1st metatarsal and the 2nd toe middle phalanx. Deep abscess over the 1st metatarsal. 1 cm ulcer dorsum of the left foot with tracking to the metatarsal bone. Description of Procedure Patient identified in the preoperative holding. Informed consent given. Operative extremity marked. Patient received intravenous antibiotics. Patient brought to the operating room where underwent general anesthetic by anesthesia team. Positioned supine on operating room table. Time-out performed confirming the patient, site of the surgery and the plan. Left foot prepped draped usual sterile surgical fashion using a ChloraPrep skin solution. Foot and ankle exsanguinated and calf tourniquet inflated to 250 mmHg. Local anesthetic with 0.5% Marcaine plain around the midportion of the foot. Dorsal 1 cm ulcer noted. This communicated with an abscess deep in the dorsal soft tissue over the 2nd and 1st metatarsals. 15 blade knife used to sharply excise the skin, subcutaneous tissue and muscle from the ulcer and any necrotic tissue. Rongeur used to debride any nonviable tissue. Wound thoroughly irrigated and closed with 0 Prolene interrupted suture. The previous incision from the hallux amputation was utilized. 15 blade knife used to incise through the skin. This allowed visualization of the amputation stump which was grossly infected. Culture was taken from this area and passed off. Soft tissue was then dissected around the distal 1st metatarsal. Sagittal saw used to remove the distal 1st metatarsal and any surrounding infected tissue was sharply excised with 15 blade knife. Surgeon carried over to the 2nd toe. Middle phalanx grossly infected. End of the 3rd toe also had changes consistent with infection. Patient with previous 4th ray and hallux amputation now with 2nd toe amputation and changes in the 3rd. It was decided that from a functional standpoint and for healing as well as wound coverage that a transmetatarsal amputation was indicated. 15 blade knife used to make elliptical incision the base of all of the toes. Soft tissue dissected from the metatarsophalangeal joints in all the toes were then passed office specimen. Sagittal saw used to resect the end of the 2nd 3rd and 5th metatarsal heads. The ends were smoothed with a rongeur. Any tendon material was sharply excised. Wound thoroughly irrigated with saline. Tourniquet was released and bleeding points were coagulated. Wound then closed with 2 Vicryl interrupted suture for the subcutaneous tissue and 0 Prolene interrupted suture for the skin. Sterile dressing applied. The patient was then woken from anesthesia, extubated and taken to the recovery room in stable condition. All sponge, needle, instrument counts were correct at the end of the case. Implants None Estimated Blood Loss 50 Tourniquet Time Total Tourniquet Time: 45 Drains No Packing No Pathology Yes ( wound culture and transmetatarsal toe specimen) Complications None Condition Stable Disposition PACU [facility] Billing Surgery - Charge Forward: Surgery Billing ([id number]= LT, [id number])
[2024-03-08 10:29] LABS: Hemoglobin A1C 8.2 % (<5.7)
--- NOTE | 2024-03-08 11:05 | PC.NURSE ---
Return from OR per stretcher.
[2024-03-08] MEDS: LACTATED RINGERS 1,000 ML 100 ML IV CONT (11:14)
[2024-03-08] MEDS: CEFEPIME 1 GM/NS 50 ML 1 GM/50 ML BAG IVPB (11:14)
[2024-03-08] MEDS: FERROUS SULFATE DRIED 142 MG TABCR PO ×2 (11:15→16:19)
[2024-03-08] MEDS: CYANOCOBALAMIN 1,000 MCG TABLET 1000 MCG PO (11:15)
[2024-03-08] MEDS: DULoxetine HCL 30 MG CAPSULE.DR PO (11:15)
[2024-03-08 11:27] LABS: Glucose Point of Care 155 mg/dl (65-105)
[2024-03-08] MEDS: DOXYCYCLINE HYCLATE 100 MG TABLET PO ×2 (12:43→20:44)
[2024-03-08] MEDS: EMPAGLIFLOZIN 10 MG TABLET PO (14:19)
--- NOTE | 2024-03-08 14:24 | PM.PNORT ---
Progress Note: A&P Assessment and Plan (1) Osteomyelitis of left foot: Qualifiers: Osteomyelitis type: other acute Qualified Code(s): M86.172 - Other acute osteomyelitis, left ankle and foot Code(s): M86.9 - Osteomyelitis, unspecified Status: Acute Assessment and Plan: Postop left foot TMA Pt comfortable, Splint in place. PT/OT NWB lt leg Pain control D/c home when medically stable. PO abx regimen ok Subjective Subjective Date/Time Seen: 03/08/24 14:24 Principal diagnosis: lt foot osteo Interval history: Postop check. LT foot surgery. Pt comfortable Exam Const: General: comfortable; No acute distress Resp: Effort & Inspection: normal respiratory effort and no audible wheezes Extrem: Right lower extremity: lower leg ( Negative Homans sign), ankle Details: normal ROM ( dorsiflexion and plantar flexion intact) and foot Details: vascular exam Details: dorsalis pedis pulse present and normal capillary refill, tendon exam Details: active flexion normal and active extension normal and motor-sensory exam Details: light-touch normal Location: in all toes; no edema Other: LT foot splint in place, clean and dry Objective Data Vital Signs Vital Signs: Vital Signs - 24 hr 03/07/24 14:30 03/07/24 15:30 03/07/24 16:00 Temperature Pulse Rate 73 71 79 Respiratory Rate 18 18 18 Blood Pressure 148/75 H 149/82 H 154/83 H Pulse Oximetry 100 100 100 Oxygen Delivery Oxygen Flow Rate 03/07/24 16:40 03/07/24 18:30 03/07/24 21:01 Temperature 98.4 F 97.6 F Pulse Rate 79 82 75 Respiratory Rate 20 16 16 Blood Pressure 134/74 110/44 L 161/85 H Pulse Oximetry 100 100 100 Oxygen Delivery Oxygen Flow Rate 03/07/24 20:00 03/08/24 06:00 03/08/24 10:07 Temperature 97.6 F 98.4 F Pulse Rate 73 73 Respiratory Rate 18 13 Blood Pressure 148/73 H 130/82 Pulse Oximetry 98 100 Oxygen Delivery Room Air Simple Face Mask Oxygen Flow Rate 8 03/08/24 10:20 03/08/24 10:35 03/08/24 10:50 Temperature Pulse Rate 77 75 70 Respiratory Rate 12 14 12 Blood Pressure 149/69 H 149/88 H 164/84 H Pulse Oximetry 99 100 99 Oxygen Delivery Room Air Room Air Room Air Oxygen Flow Rate 03/08/24 10:56 03/08/24 11:27 03/08/24 11:45 Temperature 97.7 F 98 F Pulse Rate 70 70 70 Respiratory Rate 14 14 14 Blood Pressure 155/80 H 138/78 164/73 H Pulse Oximetry 98 100 100 Oxygen Delivery Room Air Oxygen Flow Rate 03/08/24 13:40 Temperature 98.3 F Pulse Rate 80 Respiratory Rate 14 Blood Pressure 174/72 H Pulse Oximetry 100 Oxygen Delivery Oxygen Flow Rate Intake/Output Intake/Output: Intake & Output 03/05/24 03/06/24 03/07/24 03/08/24 23:59 23:59 23:59 23:59 Intake Total 440 960 Output Total 500 Balance 440 460 Meds/Results Medications: Active Medications Generic Name Dose Route Start Last Admin Trade Name Freq PRN Reason Stop Dose Admin Acetaminophen 650 mg 03/07/24 16:08 Acetaminophen 325 Mg Tablet PO Q4H PRN Mild Pain (1-3) or Fever Hydrocodone Bitart/Acetaminophen 1 tab 03/07/24 22:31 Hydrocodone/Acetaminophen (*Crx) 5-325 Mg Tablet PO Q6H PRN Pain Rated 4-6 Cyanocobalamin 1,000 mcg 03/08/24 09:00 03/08/24 11:15 Cyanocobalamin 1,000 Mcg Tablet PO 1,000 mcg QAM KAYCE Administration Dextrose 12.5 gm 03/07/24 18:05 Dextrose 50% 25 Gm/50 Ml Syringe IV PUSH PRN PRN Hypoglycemia Protocol Doxycycline Hyclate 100 mg 03/08/24 12:15 03/08/24 12:43 Doxycycline Hyclate 100 Mg Tablet PO 100 mg Q12HR KAYCE Administration Duloxetine HCl 30 mg 03/08/24 09:00 03/08/24 11:15 Duloxetine Hcl 30 Mg Capsule.Dr PO 30 mg DAILY KAYCE Administration Empagliflozin 10 mg 03/08/24 13:30 03/08/24 14:19 Empagliflozin 10 Mg Tablet PO 10 mg DAILY KAYCE Administration Ferrous Sulfate 142 mg 03/08/24 08:00 03/08/24 11:15 Ferrous Sulfate Dried 142 Mg Tabcr PO
[2024-03-08] MEDS: ONDANSETRON INJ 4 MG/2 ML VIAL IV PUSH (14:27)
[2024-03-08 16:29] LABS: Glucose Point of Care 161 mg/dl (65-105)
[2024-03-08] MEDS: HYDROcodone/acetaminophen (*CRX) 5-325 MG TABLET 1 TAB PO (20:44)
[2024-03-08] MEDS: AMOXICILLIN/CLAVULANATE K 875-125 MG TAB 1 TABLET PO (20:44)
[2024-03-08] MEDS: traZODone HCL 50 MG TABLET 150 MG PO (20:44)
[2024-03-08 21:25] LABS: Glucose Point of Care 124 mg/dl (65-105)
[2024-03-09 01:00] VITALS: BP 156/68; PULSE 80; RESP 20; TEMP 36.2; O2SAT 96
[2024-03-09 05:00] VITALS: BP 132/77; PULSE 72; RESP 18; TEMP 36.5; O2SAT 96
[2024-03-09 06:48] LABS: Basophils Absolute Auto 0.1 K/mm3 (0.0-0.1); Basophils Percent Auto 0.8 % (0.2-1.2); Eosinophils Absolute Auto 0.3 K/mm3 (0-0.3); Eosinophils Percent Auto 4.5 % (0-4.4); Hematocrit 35.2 % (42.0-52.0); Hemoglobin 11.2 g/dL (14.0-18.0); Immature Granulocyte Absolute 0.01 K/mm3 (0.00-0.031); Immature Granulocyte Percent A 0.2 % (0-0.5); Lymphocytes Absolute Auto 1.19 K/mm3 (0.9-3.2); Mean Corpuscular HGB Conc 31.8 g/dl (32-36); Mean Corpuscular Hemoglobin 28.6 pg (26-34); Mean Platelet Volume 12.3 fl (7.4-10.4); Monocytes Absolute Auto 0.6 K/mm3 (0.1-0.6); Monocytes Percent Auto 10.8 % (2.6-8.5); Neutrophils Absolute Auto 3.8 K/mm3 (1.3-6.7); Neutrophils Percent Auto 63.7 % (45.5-73.1); Platelet Count Result 108 k/mm3 (150-375); Red Blood Count 3.91 M/mm3 (4.6-6.20); Red Cell Distribution Width 14.1 % (11.5-14.5); White Blood Count 5.9 K/mm3 (4.5-10.0)
[2024-03-09 06:56] LABS: Alanine Aminotransferase 11 U/L (6-50); Albumin Level 3.4 g/dL (3.5-5.1); Alkaline Phosphatase 60 U/L (38-126); Anion Gap 8 mmol/L (4-12); Aspartate Amino Transferase 19 U/L (17-59); Bilirubin,Total 0.4 mg/dL (0.2-1.3); Blood Urea Nitrogen 20 mg/dL (9-20); Calcium 8.4 mg/dL (8.4-10.2); Carbon Dioxide 24 mmol/L (22-30); Chloride 104 mmol/L (98-107); Estimated CRCL calculation 48 ml/min; Estimated Glomerular Filt Rate 43; Glucose 126 mg/dL (65-110); Magnesium 1.9 mg/dL (1.6-2.3); Potassium 4.4 mmol/L (3.4-5.0); Sodium 136 mmol/L (137-145)
--- NOTE | 2024-03-09 07:29 | PM.DS ---
DS: Admitting Diagnosis Discharge Date 03/09 Admitting Diagnosis diabetic foot ulcer DS: Discharge Diagnosis Discharge Diagnosis (1) Osteomyelitis of left foot: Qualifiers: Osteomyelitis type: other acute Qualified Code(s): M86.172 - Other acute osteomyelitis, left ankle and foot Code(s): M86.9 - Osteomyelitis, unspecified Status: Acute Assessment and Plan: Left diabetic foot wound with concerns for osteomyelitis on imaging. Patient had been instructed by Ortho on 02/27 to be admitted to the hospital for IV antibiotics and possible amputation but he declined treatment at that time. IV antibiotics with vancomycin, cefepime, metronidazole---de-escalate to zosyn and PO doxycycline. Discussed with ID. Blood cultures ordered Wound cultures sent from OR [facility] for pain Orthopedic consulted, recs appreciated (2) Diabetic infection of left foot: Code(s): E11.628 - Type 2 diabetes mellitus with other skin complications; L08.9 - Local infection of the skin and subcutaneous tissue, unspecified Status: Acute Assessment and Plan: Chronic wound to left foot with previous amputation. Imaging is concerning for osteomyelitis and septic arthritis. Hemoglobin A1C 8.2%. Was 7.2% in 12/2023 Patient is on moderate corrective SSI while inpatient. On Farxiga 5 mg at home which was started in 12/2023, can increase to 10 mg daily. On empagliflozin 10 mg here as Farxiga is non-formulary. A.c. HS Accu-Cheks Hypoglycemia protocol ordered Maintain tight glycemic control for wound healing art educator consulted (3) Chronic kidney disease, stage 3b: Code(s): N18.32 - Chronic kidney disease, stage 3b Status: Acute Assessment and Plan: Baseline creatinine tends to range 1.5 to 2.0, BUN 20-24 Creatinine on admission was 1.5, BUN 20. Creatinine today 2.0, BUN 24 Patient NPO for possible surgery. Started on LR at 100 an hour Trend daily BMP Avoid nephrotoxin agents, renally dose medications (4) Obstructive sleep apnea: Code(s): G47.33 - Obstructive sleep apnea (adult) (pediatric) Status: Acute Assessment and Plan: Home CPAP auto titration orders placed Plan Feeding: NPO for surgery Analgesia: Tylenol versus [place] Thromboembolic prophylaxis: SCDs, Lovenox after surgery Glycemic control: Sliding scale insulin, Accu-Cheks, hypoglycemia protocol. Hemoglobin A1c pending Antibiotics: Cefepime, vanc, Flagyl Disposition: Patient arrives from home with chronic diabetic left foot wound. He is being admitted for IV antibiotics and orthopedic consultation for possible amputation. Patient lives at home alone. PT OT will see him after surgery to assist in disposition. Advance Care Plan I have confirmed that the patient's Advanced Care Plan is present, code status is documented, or surrogate decision maker is listed in patient medical record.: Yes Medication Reconciliation I have utilized all available resources to obtain, update and review the patients current medications (includes all prescriptions, OTC, herbals, cannabis, and nutritional supplements).: Yes DS: Summary Hospital Course Reason for hospitalization: osteomyelitis, diabetic foot ulcer Hospital Course: This is a pleasant 68-year-old male with type 2 diabetes mellitus, chronic kidney disease, and chronic anemia who presented to the emergency department via private vehicle for evaluation of a left foot wound and infection. Imaging was concerning for osteomyelitis and orthopedics was consulted and he was placed on IV antibiotics. He underwent left foot transmetatarsal amputation and debridement of diabetic foot ulcer with Dr Cotton on 03/08. He initially had a bump in his creatinine from his baseline CKD for which he responded well to IV fluids. His blood glucose was monitored. Hemoglobin A1C was 8.2%, up from 7.2% in October of this year. His Farxiga was continued. He was not i
[2024-03-09 07:54] VITALS: O2SAT 96
[2024-03-09 08:16] LABS: Glucose Point of Care 135 mg/dl (65-105)
[2024-03-09] MEDS: DULoxetine HCL 30 MG CAPSULE.DR PO (08:27)
[2024-03-09] MEDS: DOXYCYCLINE HYCLATE 100 MG TABLET PO (08:27)
[2024-03-09] MEDS: FERROUS SULFATE DRIED 142 MG TABCR PO (08:27)
[2024-03-09] MEDS: AMOXICILLIN/CLAVULANATE K 875-125 MG TAB 1 TABLET PO (08:27)
[2024-03-09] MEDS: CYANOCOBALAMIN 1,000 MCG TABLET 1000 MCG PO (08:27)
[2024-03-09] MEDS: EMPAGLIFLOZIN 10 MG TABLET PO (08:27)
[2024-03-09] MEDS: HYDROcodone/acetaminophen (*CRX) 5-325 MG TABLET 1 TAB PO (08:33)
--- NOTE | 2024-03-09 09:38 | WPDANESPN ---
Anes - Prog Note Post-Op Date/Time: 03/09/24 09:38 Cardiovascular status: normal Respiratory status: normal Airway patency: baseline Mental status: baseline Post-Op hydration status: normal Vital Signs: Last Vital Signs Temp 36.5 C 03/09/24 05:00 Pulse 72 03/09/24 05:00 Resp 18 03/09/24 05:00 BP 132/77 03/09/24 05:00 Pulse Ox 96 03/09/24 07:54 O2 Del Method Room Air 03/09/24 08:00 O2 Flow Rate 8 03/08/24 10:07 FiO2 21 03/09/24 07:54 Pain Score (VAS): 0 I/O: Intake & Output 03/08/24 03/09/24 03/09/24 23:59 07:59 15:59 Intake Total 540 300 Output Total 200 650 Balance 340 -350 Laboratory Tests 03/09/24 05:50 03/09/24 05:50 03/08/24 03/08/24 03/08/24 06:19 10:10 11:13 WBC RBC Hgb Hct MCV MCH MCHC RDW Plt Count MPV Immature Gran % (Auto) Neut % (Auto) Lymph % (Auto) [place] % (Auto) Eos % (Auto) Baso % (Auto) Lymph # (Auto) [place] # (Auto) Eos # (Auto) Baso # (Auto) Abs Immat Gran (auto) Absolute Neuts (auto) Absolute Nucleated RBC Nucleated RBC % Sodium Potassium Chloride Carbon Dioxide Anion Gap BUN Creatinine Estim Creat Clear Calc Estimated GFR Glucose POC Capillary Glucose 143 H 155 H Hemoglobin A1c 8.2 H Calcium Magnesium Total Bilirubin AST ALT Alkaline Phosphatase Total Protein Albumin 03/08/24 03/08/24 03/09/24 16:23 21:20 05:50 WBC 5.9 RBC 3.91 L Hgb 11.2 L Hct 35.2 L MCV 90.0 MCH 28.6 MCHC 31.8 L RDW 14.1 Plt Count 108 L MPV 12.3 H Immature Gran % (Auto) 0.2 Neut % (Auto) 63.7 Lymph % (Auto) 20.0 [place] % (Auto) 10.8 H Eos % (Auto) 4.5 H Baso % (Auto) 0.8 Lymph # (Auto) 1.19 [place] # (Auto) 0.6 Eos # (Auto) 0.3 Baso # (Auto) 0.1 Abs Immat Gran (auto) 0.01 Absolute Neuts (auto) 3.8 Absolute Nucleated RBC 0.000 Nucleated RBC % 0.0 Sodium 136 L Potassium 4.4 Chloride 104 Carbon Dioxide 24 Anion Gap 8 BUN 20 Creatinine 1.60 H Estim Creat Clear Calc 48 Estimated GFR 43 L Glucose 126 H POC Capillary Glucose 161 H 124 H Hemoglobin A1c Calcium 8.4 Magnesium 1.9 Total Bilirubin 0.4 AST 19 ALT 11 Alkaline Phosphatase 60 Total Protein 6.0 L Albumin 3.4 L 03/09/24 08:01 WBC RBC Hgb Hct MCV MCH MCHC RDW Plt Count MPV Immature Gran % (Auto) Neut % (Auto) Lymph % (Auto) [place] % (Auto) Eos % (Auto) Baso % (Auto) Lymph # (Auto) [place] # (Auto) Eos # (Auto) Baso # (Auto) Abs Immat Gran (auto) Absolute Neuts (auto) Absolute Nucleated RBC Nucleated RBC % Sodium Potassium Chloride Carbon Dioxide Anion Gap BUN Creatinine Estim Creat Clear Calc Estimated GFR Glucose POC Capillary Glucose 135 H Hemoglobin A1c Calcium Magnesium Total Bilirubin AST ALT Alkaline Phosphatase Total Protein Albumin Post-procedural complaints: none Patient Feedback: Patient satisfied with anesthetic care.
[2024-03-09 11:20] VITALS: BMI 31.6
[2024-03-09 12:13] LABS: Glucose Point of Care 156 mg/dl (65-105)
== END 2024-03-09 12:54 | disposition home or self-care (01) | DRG 617 ==
LOC: ANHED 16:08 → ANH3MEDSUR 16:59
PROVIDERS: Orthopaedic Surgery; Physician Assistant; Admitting Provider General Practice; Emergency Provider Student in an Organized Health Care Education/Training Program; PCP Family Medicine Adolescent Medicine; Visit Provider Nurse Practitioner Acute Care
PROC: 0Y6N0Z9 Detachment at Left Foot, Partial 1st Ray, Open Approach (ICD-10-PCS; principal; 2024-03-08 08:30)
DX: E11.69 Type 2 diabetes mellitus with other specified complication (principal); M86.172 Other acute osteomyelitis, left ankle and foot; E11.22 Type 2 diabetes mellitus with diabetic chronic kidney disease; I12.9 Hypertensive chronic kidney disease with stage 1 through stage 4 chronic kidney disease, or unspecified chronic kidney disease; N18.32 Chronic kidney disease, stage 3b; G47.33 Obstructive sleep apnea (adult) (pediatric); D64.9 Anemia, unspecified; E11.621 Type 2 diabetes mellitus with foot ulcer; L97.529 Non-pressure chronic ulcer of other part of left foot with unspecified severity; E11.42 Type 2 diabetes mellitus with diabetic polyneuropathy; I73.9 Peripheral vascular disease, unspecified; Z89.422 Acquired absence of other left toe(s); E66.9 Obesity, unspecified; Z68.31 Body mass index [BMI] 31.0-31.9, adult
CPT/HCPCS: 36415; 73630; 80048; 80053; 82948; 83036; 83735; 85025; 85027; 85610; 85730; 86140; 86850; 86900; 86901; 87040; 87070; 87075; 87205; 88305; 88311; 96365; 97116; 97161; 97166; 97530; 97535; 99285; A9270; J0690; J0692; J1836; J2250; J2405; J2543; J2704; J3010; J3370; J7120

== ENCOUNTER 2024-03-30 02:06 | Day surgery (SDC) | payer MEDICARE, MEDICAID, SELFPAY ==
[2024-03-29 10:20] VITALS: BMI 30.9
--- NOTE | 2024-03-29 10:40 | PC.NURSE ---
Report to the Outpatient Waiting Room, entrance under the green pavilion located off [facility], at time __0830 on date __03/30/24 . Planned Procedure Time: _10:30am . Time changes happen often and if your time is changed the preop area will call you the afternoon before. - You and your visitor will be asked to self-screen and do not enter if you have any COVID symptoms. - A mask is optional within the hospital at this time. Patients may have clear liquids (water, carbonated beverages, clear teas, apple juice) until 3 hours prior to surgery with a maximum of 20 ounces. - No food from midnight until time of surgery Take the following medications with a SIP of water the morning of surgery: ____Take Hydrocodone if needed for pain DO NOT STOP ANY OF YOUR OTHER PRESCRIPTION MEDICATIONS PRIOR TO SURGERY ?EXCEPT THE FOLLOWING Medications to discontinue per physician None Date to take last dose Please no make-up, nail arabic, hairspray, perfume, deodorant, or body powder the day of surgery. No jewelry (including any body piercings) or valuables the day of surgery, leave them at home. Please take a shower or bath the night before, or the morning of, surgery with an antibacterial soap. Wear comfortable, loose fitting clothing. Children are encouraged to wear pajamas. - Jewelry must be removed prior to entering the operating room. Rings and piercings that are not removed may be cut off. - The hospital will not accept responsibility for valuables. - Please leave all valuables, including medications, at home the day of surgery. If you are going home after surgery, a licensed electric lift truck driver must drive you home. Pt will bring the phone numbers of his Friend Apoorva with him as they are his contact and his Ride home. - NO public transportation without another adult if you receive anesthesia. - We recommend that an adult stay with you for 24 hours following discharge. - We also recommend that you do not drive, make important decision, drink alcoholic beverages, or take any drugs that were not prescribed by your health care provider for at least 24 hours after your discharge time. Follow any additional instructions given to you from your surgeon. If you or anyone in your household have experienced Covid symptoms in the past week, please notify your surgeon or the nurse liaison at the phone number below for possible testing. Telephone instructions given to ___patient and asked if any additional questions and then verbalized understanding. Patient advised to call surgeon office or pre surgery nurse liaison [phone] if any additional questions.
[2024-03-30] VITALS (9 sets, daily range): BP systolic 132–155; BP diastolic 66–89; PULSE 64–79; RESP 12–20; TEMP 36.1–36.3; O2SAT 99–100
--- NOTE | ~2024-03-30 | XR_ITS ---
EXAMINATION: XR surgery orthopedic DATE: 03/30/2024 11:12 INDICATION: Left transmetatarsal amputation revision. TECHNIQUE: 3 intraoperative fluoroscopic views of left foot were obtained. I was not present. Fluoros copy exposure time was 4 seconds. COMPARISON: Left foot radiographs 07/14/2024 FINDINGS: There are changes of transmetatarsal amputation of the left foot with revision at the secon d and third metatarsals. IMPRESSION: 1. Left foot transmetatarsal amputation revision. Reviewed, dictated and finalized at location A.
--- NOTE | 2024-03-30 07:25 | WPDHPUPDATE1 ---
History and Physical Update Update Date/Time: 03/30/24 07:25 History and Physical has been reviewed, including an updated exam of the patient. There are NO changes in the patient's condition. Risks, benefits, and alternatives have been discussed and questions answered. Patient agrees to proceed with procedure.
--- NOTE | 2024-03-30 07:28 | WPDHPUPDATE1 ---
History and Physical Update Update Date/Time: 03/30/24 07:28 History and Physical has been reviewed, including an updated exam of the patient. There are NO changes in the patient's condition. Risks, benefits, and alternatives have been discussed and questions answered. Patient agrees to proceed with procedure.
[2024-03-30] MEDS: LACTATED RINGERS 1,000 ML 30 ML IV CONT (09:30)
[2024-03-30] MEDS: KETOROLAC 15 MG/ML VIAL (*BKC) IV PUSH (09:35)
[2024-03-30 09:47] LABS: Glucose Point of Care 170 mg/dl (65-105)
--- NOTE | 2024-03-30 09:54 | WPDANESEPPF ---
Anes - Initial Pre Proc Eval Procedure: Operation Date: 03/30/24 10:00 Proposed Procedures p Left Foot Debridement with Revision Transmetatarsal Amputation - Liam Cotton MD Date/Time: 03/30/24 09:54 Surgeon: Liam Cotton MD Pre Op Diagnosis: left foot diabetic ulcers, exostosis Patient Data Age: 68 Gender: M Height: 1.79 m Weight: 99 kg Allergies Allergy/AdvReac Type Severity Reaction Status Date / Time No Known Allergies Allergy Verified 03/30/24 09:01 Home Medications Medication Instructions Recorded Confirmed Type cyanocobalamin (vitamin B-12) 1,000 mcg PO QAM #30 tabs 12/18/23 03/30/24 Rx 1,000 mcg tablet (Vitamin B-12) blood sugar diagnostic (Accu-Chek #100 ea 12/20/23 03/07/24 Rx Guide test strips) blood-glucose meter (Accu-Chek #1 ea 12/20/23 03/07/24 Rx Guide Glucose Meter) lancets (Accu-Chek Softclix #100 ea 12/20/23 03/07/24 Rx Lancets) trazodone 150 mg tablet 150 mg PO QHS #90 tabs 01/24/24 03/30/24 Rx dapagliflozin propanediol 10 mg 10 mg PO DAILY #90 tabs 03/27/24 03/30/24 Rx tablet (Farxiga) ferrous sulfate 142 mg (45 mg 142 mg PO DAILY 03/29/24 03/30/24 History iron) tablet,extended release (Slow Release Iron) gabapentin 300 mg capsule 300 mg PO TID 03/30/24 03/30/24 History hydrocodone 5 mg-acetaminophen 325 1 tablet PO Q6H PRN PAIN RATED 4-6 03/30/24 Rx mg tablet #50 tabs Laboratory Tests 03/30/24 09:39 POC Capillary Glucose 170 H mg/dl (65-105) Patient hx anesthesia problems: none Family hx anesthesia problems: none Results Review: All pre-operative results and documents have been reviewed as part of the pre-operative evaluation. [facility] Past Medical History Medical History Chronic anemia Chronic constipation Chronic fatigue Chronic kidney disease, stage 3b Diabetic peripheral neuropathy Hypercholesterolemia Hypertension Obstructive sleep apnea Peripheral artery disease Type 2 diabetes mellitus Surgical History Surgical History History of amputation of lesser toe of left foot (06/2020) Left 4th toe History of arthroscopy of right knee Status post surgical removal of nail matrix of toe Family History Family History Father , age 62 Myocardial infarct Lung disease Mother , age 73 Lung disease Sibling , age 67 Lung disease Social History Social History Social History: Surrogate decision-maker: Mark Nair (friend). Code status: Full code. Smoking status: Never smoker Second hand tobacco smoke exposure: No Additional smoking assessment comments: no form of nicotine use Alcohol intake: never Drinks per week: 1 Substance use: never Substance use type: marijuana Last use: 2019 Do You Feel Safe in your Home?: Yes Lack of Transportation: No Lack of Food: Sometimes True Current Housing: I Have Housing Concerned About Future Housing: No Difficulty Paying Gas/Electric Bills: YES Difficulty Paying for Meds: No Currently Unemployed: No Education: Decline to Answer Difficulty w/ Childcare or Family Care: No Living arrangements: alone Additional living arrangements comments: . He has no biological children. He lives in his own home in [place] with his cats. Occupation/Education: retired Spiritual care concerns: No Agree to blood products: Yes Anes - Eval Final PreProcedure Day of Procedure 03/30/24 09:54 Patient weight: obese Heart: regular rate and rhythm Lungs: clear to auscultation Airway: Mallampati scale class II Neurological: alert and oriented Last oral intake: >/= 8 hours ASA classification: IV Emergent: no Anesthetic plan: proceed Anesthesia type and monitoring: general LMA and prasanna
[2024-03-30] MEDS: ceFAZolin 2 GM/D5W 50 ML 2 GM/50 ML BAG IVPB (10:18)
[2024-03-30] MEDS: BUPivacaine HCL 0.5% PF 30 ML VIAL INFILTRATE (10:49)
[2024-03-30 11:33] LABS: Glucose Point of Care 167 mg/dl (65-105)
--- NOTE | 2024-03-30 11:58 | P.OP_ITS ---
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 Subsequently went on to a 4th ray amputation secondary to the infection. Since then he has had multiple ulcerations and infections of the left foot that necessitated further amputation in 3 weeks ago he underwent transmetatarsal amputation for osteomyelitis. He has been weight-bearing on the foot and due to exostosis of the metatarsals that has formed since surgery he has excess pressure which is now caused ulceration of the plantar aspect of the left foot. He is at risk for further ulceration, infection and loss of limb. He presents for operative treatment. Findings 12 mm x 10 mm ulceration plantar left foot. No signs of infection. Exostosis amputation stump of the 2nd and 3rd metatarsal. Description of Procedure Patient identified in the preoperative holding. Informed consent given. Operative extremity marked. Patient received intravenous antibiotics. Patient brought to the operating room where underwent general anesthetic by anesthesia team. Positioned supine on operating room table. Time-out performed confirming the patient, site of the surgery and the plan. Left foot prepped draped usual sterile surgical fashion using a ChloraPrep skin solution. Foot and ankle exsanguinated With Esmarch bandage which was wrapped at the ankle as a tourniquet. Local anesthetic with 0.5% Marcaine plain around the midportion of the foot. Plantar 1.2 cm ulcer noted. This communicated with plantar soft tissue and musculature of the left foot. 15 blade knife used to sharply excise the skin, subcutaneous tissue and muscle from the ulcer and any necrotic tissue. Rongeur used to debride any nonviable tissue. Wound thoroughly irrigated and closed with 00 Prolene interrupted suture. The previous incision from the Transmetatarsal amputation was utilized. 15 blade knife used to incise through the skin at the midportion over the 2nd and 3rd metatarsals. This allowed visualization of the amputation stump of the 2nd and 3rd metatarsal. exostosis from the end of the metatarsals noted. Soft tissue was dissected off of the metatarsals. Image intensification was then brought in to help confirm the resection level of the end of the 2nd and 3rd metatarsal exostosis. Bone cutter and rongeur were used to transect the metatarsal and removed the exostosis which was passed off. Fluoroscopic views confirmed resection level of the metatarsals. Wound thoroughly irrigated with saline. Tourniquet was released and bleeding points were coagulated. Wound th en closed with 2 0 Prolene interrupted suture for the skin. Sterile dressing applied. The patient was then woken from anesthesia, extubated and taken to the recovery room in stable condition. All sponge, needle, instrument counts were correct at the end of the case. Implants None Estimated Blood Loss 5 Tourniquet Time Total Tourniquet Time: 35 Drains No Packing No Pathology None sent Complications None Condition Stable Disposition PACU [facility] Billing Surgery - Charge Forward: Surgery Billing ([id number], [id number])
== END 2024-03-30 13:40 | disposition home or self-care (01) ==
PROVIDERS: PCP Family Medicine Adolescent Medicine; Visit Provider Orthopaedic Surgery
PROC: (CPT 28805; principal; 2024-03-30 10:00)
DX: E11.621 Type 2 diabetes mellitus with foot ulcer (principal); L08.9 Local infection of the skin and subcutaneous tissue, unspecified; M86.9 Osteomyelitis, unspecified; M89.9 Disorder of bone, unspecified; E11.42 Type 2 diabetes mellitus with diabetic polyneuropathy; G47.33 Obstructive sleep apnea (adult) (pediatric); E78.00 Pure hypercholesterolemia, unspecified; N18.32 Chronic kidney disease, stage 3b; I12.9 Hypertensive chronic kidney disease with stage 1 through stage 4 chronic kidney disease, or unspecified chronic kidney disease; E11.22 Type 2 diabetes mellitus with diabetic chronic kidney disease
CPT/HCPCS: 11043; 28122; 82948; 99199; J0690; J1885; J2250; J3010; J7120

== ENCOUNTER 2024-04-12 05:37 | Emergency (ER) | payer MEDICARE, MEDICAID, SELFPAY ==
--- NOTE | ~2024-04-12 | CT_ITS ---
Non-contrast CT scan of the Abdomen and Pelvis Clinical indication: Hematuria Technique: 2.5 mm axial scans were obtained through the abdomen and pelvis without intravenous or or al contrast. Dose reduction technique was used on this scan by utilizing automated exposure control a nd iterative reconstruction technique. The dose-length product (DLP) was 842.47 mGy-cm. Findings: Images through the lung bases reveal chronic interstitial changes in the visualized lungs. Calcified subcarinal and right hilar lymph nodes are present. Punctate nonobstructing bilateral renal stones are present. No ureteral stone or hydronephrosis. The liver, spleen, pancreas, and adrenals appear normal. Distended gallbladder with small layering st ones/sludge. No gallbladder wall thickening. There is no aortic aneurysm. There is no evidence of bowel obstruction. Images through the pelvis were performed. There is no evidence of ascites or lymphadenopathy. Urinary bladder unremarkable. Prostate gland enlarged. No ascites. Impression: Punctate bilateral nonobstructing renal stones. Cholelithiasis/gallbladder sludge. Scattered chronic interstitial disease in the lungs. Enlarged prostate gland. Reviewed, dictated and finalized at [facility]. Impression: Punctate bilateral nonobstructing renal stones. Cholelithiasis/gallbladder sludge. Scattered chronic interstitial disease in the lungs. Enlarged prostate gland.
--- NOTE | ~2024-04-12 | XR_ITS ---
Left foot Technique: AP, oblique, and lateral views were obtained. Clinical History: Pain COMPARISON: 03/13/2024 Findings: Status post transmetatarsal amputation of the foot. No definite evidence of osteomyelitis. No acute fracture or dislocation evident. Soft tissues are grossly unremarkable. Impression: Status post transmetatarsal amputation of the foot. No definite evidence for acute osteomyelitis. Cor relate clinically. Consider MR for further imaging for osteitis, as indicated. No acute fracture or dislocation. Reviewed, dictated and finalized at location . Impression: Status post transmetatarsal amputation of the foot. No definite evidence for ac alex osteomyelitis. Correlate clinically. Consider MR for further imaging for os teitis, as indicated. No acute fracture or dislocation.
[2024-04-12 05:39] VITALS: BP 141/64; PULSE 84; RESP 14; O2SAT 99
[2024-04-12 06:29] LABS: Basophils Absolute Auto 0.1 K/mm3 (0.0-0.1); Basophils Percent Auto 0.4 % (0.2-1.2); Eosinophils Percent Auto 0.2 % (0-4.4); Hematocrit 36.8 % (42.0-52.0); Hemoglobin 12.1 g/dL (14.0-18.0); Immature Granulocyte Absolute 0.14 K/mm3 (0.00-0.031); Immature Granulocyte Percent A 0.8 % (0-0.5); Lymphocytes Absolute Auto 0.54 K/mm3 (0.9-3.2); Lymphocytes Percent Auto 3.1 % (18.3-44.2); Mean Corpuscular HGB Conc 32.9 g/dl (32-36); Mean Corpuscular Hemoglobin 28.5 pg (26-34); Mean Corpuscular Volume 86.8 fl (80-100); Monocytes Absolute Auto 1.3 K/mm3 (0.1-0.6); Monocytes Percent Auto 7.3 % (2.6-8.5); Neutrophils Absolute Auto 15.5 K/mm3 (1.3-6.7); Neutrophils Percent Auto 88.2 % (45.5-73.1); Platelet Count Result 198 k/mm3 (150-375); Red Blood Count 4.24 M/mm3 (4.6-6.20); Red Cell Distribution Width 14.3 % (11.5-14.5); White Blood Count 17.6 K/mm3 (4.5-10.0)
[2024-04-12 06:39] LABS: Alanine Aminotransferase 29 U/L (6-50); Albumin Level 3.3 g/dL (3.5-5.1); Alkaline Phosphatase 129 U/L (38-126); Anion Gap 13 mmol/L (4-12); Aspartate Amino Transferase 29 U/L (17-59); Bilirubin,Total 0.5 mg/dL (0.2-1.3); Blood Urea Nitrogen 51 mg/dL (9-20); Calcium 8.6 mg/dL (8.4-10.2); Carbon Dioxide 25 mmol/L (22-30); Chloride 92 mmol/L (98-107); Estimated Glomerular Filt Rate 32; Glucose 294 mg/dL (65-110); Sodium 130 mmol/L (137-145)
--- NOTE | 2024-04-12 07:16 | PC.NURSE ---
tcc cast has to be cut down the front per wound care.
--- NOTE | 2024-04-12 07:20 | ED.FALL ---
HPI - Fall General Chief Complaint: Fall Stated Complaint: GLF, no thinners, weakness Time Seen by Provider: 04/12/24 06:53 History of Present Illness HPI Narrative: 68-year-old male present to the emergency department for evaluation for cast removal. Had surgery on 04/03. Patient missed his cast changed on Tuesday and presented to the emergency department today for evaluation. Patient states he has been having frequent falls due to tripping mechanically due to the cast. Patient also reports that he had loss of bladder control into the cast. Related Data Home Medications Medication Instructions Recorded Confirmed ferrous sulfate 142 mg (45 mg 142 mg PO DAILY 03/29/24 04/03/24 iron) tablet,extended release (Slow Release Iron) gabapentin 300 mg capsule 300 mg PO TID 03/30/24 04/03/24 Allergies Allergy/AdvReac Type Severity Reaction Status Date / Time No Known Allergies Allergy Verified 04/03/24 12:48 Review of Systems Review of Systems: All systems reviewed & are unremarkable except as noted in HPI and below PMFSH Past Medical History Medical History (Updated 04/12/24 @ 10:43 by VIET Harper) Chronic anemia Chronic constipation Chronic fatigue Chronic kidney disease, stage 3b Diabetic peripheral neuropathy Diarrhea Hypercholesterolemia Hypertension Obstructive sleep apnea Peripheral artery disease Type 2 diabetes mellitus Surgical History Surgical History (Updated 04/12/24 @ 10:44 by VIET Harper) History of amputation of lesser toe of left foot (06/2020) Left 4th toe History of arthroscopy of right knee S/P transmetatarsal amputation of foot Status post surgical removal of nail matrix of toe Family History Family History Father , age 62 Myocardial infarct Lung disease Mother , age 73 Lung disease Sibling , age 67 Lung disease Social History Social History Social History: Surrogate decision-maker: Mark Nair (friend). Code status: Full code. Smoking status: Never smoker Second hand tobacco smoke exposure: No Additional smoking assessment comments: no form of nicotine use Alcohol intake: never Drinks per week: 1 Substance use: never Substance use type: marijuana Last use: 2019 Do You Feel Safe in your Home?: Yes Lack of Transportation: No Lack of Food: Sometimes True Current Housing: I Have Housing Concerned About Future Housing: No Difficulty Paying Gas/Electric Bills: YES Difficulty Paying for Meds: No Currently Unemployed: No Education: Decline to Answer Difficulty w/ Childcare or Family Care: No Living arrangements: alone Additional living arrangements comments: . He has no biological children. He lives in his own home in [place] with his cats. Occupation/Education: retired Spiritual care concerns: No Agree to blood products: Yes Exam Narrative: APPEARANCE: Well appearing, no pain, no distress, well-nourished. HEAD: normocephalic, atraumatic. EYES: PERRLA/EOMI, conjunctivae clear. NOSE: Normal no drainage EARS:TMS clear with good light reflex. THROAT: Pharynx clear, no exudate. NECK: Supple. No adenopathy, no masses. RESPIRATORY: Airway patent, respirations nonlabored. Clear to auscultation bilaterally, no rales, rhonchi, wheezing. CARDIOVASCULAR: Regular rate and rhythm without murmurs rubs or gallops. ABDOMINAL: Soft, nontender, nondistended, normal bowel sounds MUSCULOSKELETAL: Moves all extremities. Strength/ROM intact, No edema, No calf tenderness. NEURO: Alert. Cranial nerves II through XII intact. Good gait. Good coordination SKIN: cast was removed and left foot is well-appearing with all incisions closed and intact, no underlying evidence cellulitis. Course Vital Signs Vital signs: Vital Signs Pulse Rate 84 08/24 0
[2024-04-12 08:18] VITALS: BP 115/67; PULSE 73; RESP 14; O2SAT 95
[2024-04-12 08:24] LABS: Add Urine Microscopic? YES; Appearance Urine Cloudy (Clear); Bacteria Urine None Seen /hpf; Bilirubin Urine Negative (Negative); Blood Urine 3+ (Negative); Color Urine Yellow (Yellow); Glucose Urine UA 3+ mg/dL (Negative); Ketones Urine Trace mg/dL (Negative); Leukocyte Esterase Ur Negative LEU/UL (Negative); Need Manual Microscopic Reviewed; Nitrate Urine Negative (Negative); Protein Urine 1+ mg/dL (Negative); RBC Urine 51-100 /hpf (0-2); Specific Grav Ur 1.025 (1.001-1.035); Squamous Epithelial Cell Urine Occasional /hpf (Few); Urobilinogen Urine 0.2 mg/dL (<2.0); WBC Urine 0-5 /hpf (0-3)
[2024-04-12 08:54] VITALS: BP 97/72; PULSE 73; RESP 14; TEMP 36.9; O2SAT 100
--- NOTE | 2024-04-12 09:30 | PC.NURSE ---
Jaylin from Ortho and Yesica from wound care here consulting with pt at this time
--- NOTE | 2024-04-12 10:37 | PM.CNOR ---
Assessment and Plan Assessment and plan (1) Diarrhea: Code(s): R19.7 - Diarrhea, unspecified Status: Acute Assessment and Plan: Patient failed to follow-up in the [facility] wound clinic for cast change on Tuesday due to generally feeling unwell, weakness, diarrhea. New complaints of recent falls. He presents to the emergency room today for further evaluation. Elevated WBC, BUN, Creatinine, BG levels. Hyponatremic. Cast removed by ED staff. See below for further details regarding TMA postoperative course and casting recommendations. (2) S/P transmetatarsal amputation of foot: Qualifiers: Laterality: left Qualified Code(s): Z89.432 - Acquired absence of left foot Code(s): Z89.439 - Acquired absence of unspecified foot Status: Acute Assessment and Plan: 5 weeks status post initial TMA complicated by postoperative plantar wound. Patient returned to the OR 1 week, 7 days ago for revision of the left TMA. He then presented to our office for follow-up postoperatively and underwent total contact cast application. He was set to follow up in an wound clinic for total contact cast removal and re-application on Tuesday but failed to present to clinic due to feeling unwell and having diarrhea and weakness. We followed up with the patient the following day and requested that he come to our office for further evaluation and contact cast change but the patient refused. He now presents the emergency room for complaints of diarrhea and weakness as well as a fall. Total contact cast removed by the emergency room physician. On exam today, incision well approximated of the left TMA as side from a small area in the middle of the incision which appears to be consistent with a stitch abscess. Surrounding tissue without redness, warmth or swelling. Mild purulence drainage expelled from the opening of the incision. Stat Gram stain and culture of the wound obtained. Given patient's failure to improve status post initial TMA due to noncompliance with nonweightbearing, patient would benefit from repeat total contact cast application today. Plan for I would of formed strip gauze to be tipped in to the area of poor approximation of the incision and TCC reapplied. Will follow wound cultures as an outpatient and patient will follow up upon d/c from the ER in the wound clinic for TCC change. Plan for suture removal 3 weeks postop due to poor wound healing history and DM. Further workup for cause of diarrhea and weakness deferred to ER. Plan Reviewed history, exam, radiographs and current labs with attending MD and covering surgeon, Dr. Cotton, who agrees with current plan as indicated above. No further recommendations from Dr. Cotton at this time. History of Present Illness HPI Consult date: 04/12/24 Chief complaint: GLF, no thinners, weakness Narrative: Orthopedic consult for this 68-year-old male well known to the Orthopedic Service. Patient is 1 week, 6 days status post revision of left TMA. He was scheduled to follow up in the Wound Clinic on Tuesday of this week but did not make it due to feeling unwell. at that time, he reported weakness and diarrhea. He was contacted again the following day and requested that he arrived to the office for an appointment but he refused due to feeling unwell. He was advised at that time to seek care in the emergency room or to come in to the office for evaluation of the cast but he refused. Total contact cast removed by emergency room physician. Orthopedic consult requested to evaluate the left foot and recast if appropriate. Review of Systems Review of Systems: Patient does report chills and diarrhea. He reports weakness and frequent falls. He denies fever. [facility] Past Medical History Medical History (Updated 04/12/24 @ 10:43 by VIET Harper) Chronic anemia Chronic constipation Chronic fatigue Chronic kidney disease, stage 3b Diabetic peripheral neuropat
== END 2024-04-12 10:16 | disposition home or self-care (01) ==
PROVIDERS: Emergency Medicine; Emergency Provider Emergency Medicine; PCP Family Medicine Adolescent Medicine
DX: Z47.81 Encounter for orthopedic aftercare following surgical amputation (principal); R19.7 Diarrhea, unspecified; Z89.432 Acquired absence of left foot; Z91.198 Patient's noncompliance with other medical treatment and regimen for other reason; E11.22 Type 2 diabetes mellitus with diabetic chronic kidney disease; I12.9 Hypertensive chronic kidney disease with stage 1 through stage 4 chronic kidney disease, or unspecified chronic kidney disease; N18.32 Chronic kidney disease, stage 3b; E11.42 Type 2 diabetes mellitus with diabetic polyneuropathy; E11.51 Type 2 diabetes mellitus with diabetic peripheral angiopathy without gangrene; I73.9 Peripheral vascular disease, unspecified; D64.9 Anemia, unspecified; G47.33 Obstructive sleep apnea (adult) (pediatric); R53.82 Chronic fatigue, unspecified; Z79.899 Other long term (current) drug therapy; N20.0 Calculus of kidney; K80.20 Calculus of gallbladder without cholecystitis without obstruction; R93.2 Abnormal findings on diagnostic imaging of liver and biliary tract; J84.9 Interstitial pulmonary disease, unspecified; N40.0 Benign prostatic hyperplasia without lower urinary tract symptoms
CPT/HCPCS: 29445; 36415; 73630; 74176; 80053; 81001; 85025; 87070; 87077; 87147; 87181; 87186; 87205; 99284

== ENCOUNTER 2024-04-13 12:05 | Inpatient (IN) | payer MEDICARE, MEDICAID, SELFPAY ==
[2024-04-13] VITALS (9 sets, daily range): BP systolic 90–134; BP diastolic 52–75; PULSE 72–87; RESP 18–20; TEMP 36.5–37.1; O2SAT 94–98
--- NOTE | ~2024-04-13 | XR_ITS ---
EXAMINATION: XR shoulder RT min 2V DATE: 04/13/2024 13:28 INDICATION: Right shoulder pain post fall TECHNIQUE: AP internally and externally rotated, AP oblique externally rotated and transscapular Y vi ews of the right shoulder were obtained. COMPARISON: None FINDINGS: Normal alignment. No fracture. Humeral osteoarthritis with severe nonuniform joint space narrowing a nd with large marginal osteophytes along the humeral head. Moderate acromioclavicular osteoarthritis. Small focus of dystrophic calcific lesion along the greater tuberosity consistent with rotator cuff calcific tendinitis. Soft tissues are unremarkable. Small right lung along with calcified nodule in t he right lower lung zone and calcified right hilar lymph nodes consistent with old granulomatous dise ase. IMPRESSION: 1. Severe right glenohumeral and moderate acromioclavicular osteoarthritis. No acute osseous abnormal ity. 2. Small focus of right rotator cuff calcific tendinitis. Reviewed, dictated and finalized at location A. IMPRESSION: 1. Severe right glenohumeral and moderate acromioclavicular osteoarthritis. No acute osseous abnormality. 2. Small focus of right rotator cuff calcific tendinitis.
--- NOTE | ~2024-04-13 | US_ITS ---
EXAMINATION: US arterial ankle brachial ind DATE: 04/20/2024 13:57 INDICATION: Diabetic with hypertension presenting with left foot wound/ulceration. TECHNIQUE: Segmental pressures and plethysmographic and Doppler waveforms of the brachial and lower e xtremity arteries were obtained. COMPARISON: None. FINDINGS: Right and left brachial artery pressures of 138 mm Hg and 143 mm Hg, respectively, are concordant (no rmal difference <= 30 mmHg). The right ankle-brachial index (ROSIE) is 1.35 (normal >= 0.9-1.0) based upon the right posterior tibia l artery pressure. The right process pedis artery was unable to be occluded. The right great toe-brac hial index (TBI) is 0.67 (normal >= 0.65). Arterial Doppler waveforms are triphasic with brisk systol ic upstrokes at both right posterior tibial and dorsalis pedis arteries. The left ROSIE is 1.00. The left TBI is unable to be obtained as patient has had amputations of all of the toes on the left foot. Arterial Doppler waveforms are triphasic with brisk systolic upstrokes at both left posterior tibial and dorsalis pedis arteries. IMPRESSION: 1. No significant arterial occlusive disease to the right lower limb with normal right ROSIE and TBI. 2. Borderline low normal left ROSIE. Left TBI is unable to be obtained due to prior toe amputations at the left foot. Reviewed, dictated and finalized at location A. IMPRESSION: 1. No significant arterial occlusive disease to the right lower limb with nneka l right ROSIE and TBI. 2. Borderline low normal left ROSIE. Left TBI is unable to be obtained due to karo or toe amputations at the left foot.
--- NOTE | ~2024-04-13 | XR_ITS ---
XR hip RT min 2V 04/13/2024 13:30 Indication: Right hip pain after recent falls Procedure: 2 views right hip Comparison: 06/16/2017 Findings: There is moderate osteoarthritis of the right hip. No fracture, subluxation or dislocation. No significant soft tissue abnormality. No foreign bodies. Impression: 1: Moderate osteoarthritis of the right hip. Reviewed, dictated and finalized at location B. Impression: 1: Moderate osteoarthritis of the right hip.
--- NOTE | ~2024-04-13 | XR_ITS ---
XR foot LT min 3V Ordering provider: Liam Salazar which was History: . ulcer . Comparison: April 12, 2024 FINDINGS: BONES: Status post amputation. Sclerotic changes seen in the residual portion of the metatarsal bones . Destructive changes are also seen in the distal end to the bones. JOINT SPACES: Normal. No tarsal coalition. SOFT TISSUES: Soft tissue swelling is seen in the anterior portion of the residual portion of the nemesio t. Areas also seen in the mid area of the soft tissue. Ulcer or infection cannot be excluded. Clinica l correlation advised. IMPRESSION: Mammography pneumonia. She markings remotely Highly suggestive of osteomyelitis residual metatarsal bones. No Air in the soft tissues which may indicate ulcer or infection. Reviewed, dictated and finalized at location A.
--- NOTE | ~2024-04-13 | XR_ITS ---
Right Forearm AP and lateral views of the right forearm were performed. Clinical History: Status post fall Findings: No fracture or dislocation is seen. Osseous alignment in anatomic. Joint spaces are prese rved. Soft tissues are unremarkable. Impression: Unremarkable exam. Reviewed, dictated and finalized at location . Impression: Unremarkable exam.
--- NOTE | ~2024-04-13 | MR_ITS ---
EXAMINATION: MR cervical spine wo/w con DATE: 04/18/2024 08:22 INDICATION: Neck pain. Epidural abscess. TECHNIQUE: Magnetic resonance imaging (MRI) of the cervical spine was performed without intravenous c ontrast. Sequences included sagittal T2-weighted FSE, sagittal T2-weighted FS FSE, sagittal T1-weight ed FSE, axial MERGE and axial T2-weighted FSE. COMPARISON: CT dated 04/13/2024 FINDINGS: There is straightening of the normal lordosis in the lower cervical spine. No spondylolisthesis or fa cet subluxation. Vertebral body heights are normal. No fracture. There is normal bone marrow signal t hroughout. Severe disc height loss at C5-C6, moderate disc height loss at C6-C7 and mild disc height loss at C3-C4. Cord signal intensity is normal. There is soft tissue edema and minimal non masslike e nhancement in the posterior paraspinal musculature at the lower cervical spine which could be related to low-grade muscle strain given the reported history of neck pain post fall. There is also mild lik ayden synovial enhancement associated with severe facet osteoarthritis on the left at C3-C4 and on the right at C7-T1. No other abnormally enhancing lesions identified. No abnormal fluid collections in th e central canal to suggest epidural hematoma or abscess. The following disc levels are specifically d iscussed: C2-C3: The disc does not extend beyond the endplate margin. There is mild bilateral uncovertebral christiano nt osteoarthritis. There is mild right and severe left facet joint osteoarthritis. There is mild left neural foraminal stenosis. There is no central canal stenosis. C3-C4: Annular fissure and small left subarticular zone disc protrusion. There is moderate right and severe left uncovertebral joint osteoarthritis. There is severe bilateral facet joint osteoarthritis. There is mild right and moderate left neural foraminal stenosis. There is mild central canal stenosi s. C4-C5: Disc is bulging. There is mild bilateral uncovertebral joint osteoarthritis. There is moderate left and severe right facet joint osteoarthritis. There is mild bilateral neural foraminal stenosis. There is mild central canal stenosis with mild indentation of the ventral surface of the cord. C5-C6: Disc is bulging. There is severe bilateral uncovertebral joint osteoarthritis. There is modera te left and mild right facet joint osteoarthritis. There is moderate bilateral neural foraminal steno sis. There is mild central canal stenosis with flattening of the ventral surface of the cord. C6-C7: Disc is bulging. There is severe bilateral uncovertebral joint osteoarthritis. There is mild b ilateral facet joint osteoarthritis. There is moderate bilateral neural foraminal stenosis. There is moderate central canal stenosis with the formation of the cord and effacement of the majority of the surrounding CSF signal. C7-T1: The disc does not extend beyond the endplate margin. There is no uncovertebral joint osteoarth ritis. There is severe bilateral facet joint osteoarthritis. There is moderate bilateral, right great er than left neural foraminal stenosis. There is no central canal stenosis. IMPRESSION: 1. Severe cervical spondylosis with no acute osseous abnormality or epidural abscess or hematoma. 2. Edema and non masslike enhancement in the posterior paraspinal musculature which given the history of trauma could be related to muscle strain. Reviewed, dictated and finalized at location A. IMPRESSION: 1. Severe cervical spondylosis with no acute osseous abnormality or epidural ab scess or hematoma. 2. Edema and non masslike enhancement in the posterior paraspinal musculature w hich given the history of trauma could be related to muscle strain.
--- NOTE | ~2024-04-13 | CT_ITS ---
EXAMINATION: CT chest abdomen w con DATE: 04/17/2024 16:53 INDICATION: Hypotension. C. difficile colitis. TECHNIQUE: Computed tomography (CT) of the chest and abdomen was performed with 100 mL Omnipaque 350 intravenous contrast. Automated exposure control and iterative reconstruction technique were employed . The dose-length product was 1219.46 mGy-cm. COMPARISON: CT abdomen and pelvis 04/12/2024 FINDINGS: CHEST CT: Calcified pulmonary nodules and calcified hilar mediastinal lymph nodes are consistent with old granu lomatous disease. There is septal thickening in all lobes with groundglass opacities and volume loss and architectural distortion. No bronchiectasis or honeycombing. There are trace pleural effusions. T he heart size is normal. There are coronary artery calcifications. There is a small pericardial effus ion. There is mild thoracic spondylosis. ABDOMEN CT: There is a 2.2 cm mass in right left hepatic lobe with interrupted peripheral puddling of contrast, c onsistent with a hemangioma. The spleen is normal. The gallstone is distended gallbladder is distende d and contains gallstones. The pancreas and adrenal glands are normal. There are cysts in the kidneys measuring up to 9 mm on the left. There is a 18 mm hemorrhagic cyst in left kidney. There is wall th ickening of the colon with mucosal hyperemia, consistent with colitis. There is a small volume of asc ites. There is mild lumbar spondylosis. IMPRESSION: 1. Pancolitis, worsened from 04/12/2024. 2. Cholelithiasis. Gallbladder distention may be secondary to fasting. Correlate with physical exam. 3. Small volume of ascites. 4. Small pericardial effusion, new from 04/12/2024. 5. Stable mild chronic lung disease. Reviewed, dictated and finalized at location A. IMPRESSION: 1. Pancolitis, worsened from 04/12/2024. 2. Cholelithiasis. Gallbladder distention may be secondary to fasting. Correlat e with physical exam. 3. Small volume of ascites. 4. Small pericardial effusion, new from 04/12/2024. 5. Stable mild chronic lung disease.
--- NOTE | ~2024-04-13 | XR_ITS ---
Portable chest x-ray Comparison: 04/15/2024 Clinical History: Hypotension Findings: Stable calcified right midlung granuloma. Probable chronic scarring right upper lobe. Stab le retrocardiac opacity. Cardiomediastinal silhouette is stable. Bones and soft tissues are unremark able. Impression: No interval change. Stable retrocardiac opacity. Stable probable chronic scarring upper lobe. Reviewed, dictated and finalized at [facility]. Impression: No interval change. Stable retrocardiac opacity. Stable probable chronic scarri ng upper lobe.
--- NOTE | ~2024-04-13 | MR_ITS ---
EXAMINATION: MR foot LT wo/w con DATE: 04/19/2024 12:20 INDICATION: Osteomyelitis at the left forefoot with persistent bacteremia TECHNIQUE: Magnetic resonance imaging (MRI) of the left fore/mid foot was performed without and with 19 mL Multihance intravenous contrast. Sequences included axial, sagittal and coronal T1-weighted FSE , sagittal fluid sensitive FSE STIR, axial and coronal T2-weighted FS FSE, axial T1-weighted FS FSE a nd postcontrast axial, sagittal and coronal T1-weighted FS FSE. COMPARISON: Left foot radiographs dated 04/12/2024 and MRI dated 02/25/2024 FINDINGS: There are transmetatarsal amputations across the first-fifth toes. There is a rim-enhancing fluid col lection consistent with abscess which extends proximally 4.4 cm medial collateral across the first-th ird metatarsal osteotomy margins. There are draining sinus tracts extending to skin ulcerations at th e dorsal and plantar margins of the forefoot stump. There is geographic loss of T1 fat signal with pr ominent marrow edema and enhancement in the remainder of the proximal first-third metatarsals. Low s ignal intensity smoothly corticated osteotomy margin at the fourth metatarsal without loss of T1 fat signal or enhancement at the osteotomy margin to suggest recurrent osteomyelitis. There is prominent marrow edema and enhancement extending distally throughout the diaphysis from the osteotomy margin at the neck of the fifth metatarsal also suspicious for osteomyelitis with a 9 x 8 x 3 mm peripheral en hancing likely abscess along the lateral osteotomy margin. There is new marrow edema and enhancement without geographic loss of T1 marrow fat signal at both ramone es of the second and third tarsal metatarsal joints and to lesser degree at the bases of the fourth a nd fifth metatarsals. There a couple small peripheral enhancing fluid collections along the dorsal ma rgins of the second and third tarsal metatarsal joints. The prominent inflammatory changes which have developed in the relatively short interval since the prior study raise concern for additional septic arthritis and potentially developing osteomyelitis along the central Lisfranc joint. There is fatty atrophy and feathery muscular edema throughout the intrinsic musculature of the foot c onsistent with likely acute on chronic denervation changes consisting the setting of diabetic neuropa thy. Physiologic amount of fluid in the joint space at the left hindfoot and ankle. Chronic mild like ly degenerative subarticular edema-like signal changes along the distal margin of the navicula which was present at the time of the prior MRI. No other lesions suspicious for osteomyelitis in the hindfo ot. IMPRESSION: 1. First second fifth distal transmetatarsal osteotomies with osteomyelitis extending proximally in t he remaining first-third and fifth metatarsals with large draining abscess extending across the first -third osteotomy margins and small abscess along the lateral posterior margin of the fifth metatarsal . 2. Prominent marrow edema and enhancement at both sides of the second and third tarsal metatarsal christiano nts without loss of T1 fat signal suspicious for septic arthritis on the Lisfranc joint with associat ed and reactive marrow changes versus early osteomyelitis. Reviewed, dictated and finalized at location A. IMPRESSION: 1. First second fifth distal transmetatarsal osteotomies with osteomyelitis ext ending proximally in the remaining first-third and fifth metatarsals with large draining abscess extending across the first-third osteotomy margins and small abscess along the lateral posterior margin of the fifth metatarsal. 2. Prominent marrow edema and enhancement at both sides of the second and third tarsal metatarsal joints without loss of T1 fat signal suspicious for
--- NOTE | ~2024-04-13 | XR_ITS ---
EXAMINATION: XR chest PICC line DATE: 04/27/2024 13:32 INDICATION: PICC line placement TECHNIQUE: frontal view of the chest was obtained. COMPARISON: Chest radiograph and CT dated 04/17/2024 FINDINGS: Right upper extremity peripherally inserted central venous catheter (PICC) tip at the superior cavoa trial junction. Calcified nodules in the right lower lung zone along with calcified right hilar and mediastinal lymph nodes consistent with old granulomatous disease. Persistent mild linear discoid atelectasis/scarring at the right midlung zone. No other airspace opacities, pulmonary edema, pleural effusion or pneumot horax. The cardiomediastinal silhouette is normal. Severe right glenohumeral osteoarthritis. IMPRESSION: 1. Right upper extremity PICC line tip at the superior cavoatrial junction. 2. No acute cardiopulmonary disease. Reviewed, dictated and finalized at location B.
--- NOTE | ~2024-04-13 | CT_ITS ---
EXAMINATION: CT brain wo con DATE: 04/13/2024 20:45 INDICATION: Syncope. Fall. TECHNIQUE: Computed tomography (CT) of the head was performed without intravenous contrast. The mA wa s adjusted according to patient size. Iterative reconstruction technique was employed. The dose-lengt h product was 605.33 mGy-cm. COMPARISON: None FINDINGS: There are scattered areas of low attenuation in the cerebral white matter, which is within normal limits for the patient's age. There is no intracranial hemorrhage, acute infarction, or abnorm al intracranial mass lesion. The ventricles are normal in size. There is mild mucosal thickening in t he paranasal sinuses. The mastoid air cells are normal. The orbits are normal. IMPRESSION: 1. Normal aging brain. Reviewed, dictated and finalized at location A. IMPRESSION: 1. Normal aging brain.
--- NOTE | ~2024-04-13 | XR_ITS ---
EXAMINATION: XR chest 1V portable DATE: 04/15/2024 14:27 INDICATION: Febrile. Lethargy. TECHNIQUE: frontal view of the chest was obtained. COMPARISON: Chest radiograph and CT dated 12/15/2023 FINDINGS: Lung volumes are decreased due to lordotic positioning. Retrocardiac airspace opacities in the left l ower lung zone likely reflecting the infrahilar pulmonary vasculature with differential including ate lectasis or pneumonia. More subtle opacity extending obliquely band superolaterally from the right hi lum and favor atelectasis over pneumonia. Calcified right middle lobe nodule consistent with old gran ulomatous disease. No pulmonary edema, pleural effusion or pneumothorax. Heart size is within normal limits for AP technique. IMPRESSION: 1. Retrocardiac opacities most likely related to pulmonary vasculature but differential includes atel ectasis or pneumonia. 2. Additional subtle oblique bandlike opacity in the right midlung zone and favor atelectasis over pn eumonia. Reviewed, dictated and finalized at location A. IMPRESSION: 1. Retrocardiac opacities most likely related to pulmonary vasculature but diff erential includes atelectasis or pneumonia. 2. Additional subtle oblique bandlike opacity in the right midlung zone and fav or atelectasis over pneumonia.
--- NOTE | ~2024-04-13 | CT_ITS ---
EXAMINATION: CT cervical spine wo con DATE: 04/13/2024 20:45 INDICATION: Neck pain. Fall. TECHNIQUE: Computed tomography (CT) of the cervical spine was performed without intravenous contrast. Automated exposure control and iterative reconstruction technique were employed. The dose-length pro duct was 474.72 mGy-cm. COMPARISON: None FINDINGS: There is mild kyphosis of lower cervical spine. There is 5 degrees dextrocurvature of cervi sveta spine. Vertebral body heights are normal. There is mildly decreased disc height at C3-C4, severel y decreased disc height at C5-C6, and moderately decreased disc height at C6-C7. The following disc l evels are specifically discussed: C2-C3: There is mild bilateral uncovertebral joint osteoarthritis. There is mild right and severe lef t facet joint osteoarthritis. There is mild left neural foraminal stenosis. There is mild central can al stenosis. C3-C4: There is moderate right and severe left uncovertebral joint osteoarthritis. There is severe bi lateral facet joint osteoarthritis. There is mild bilateral neural foraminal stenosis. There is mild central canal stenosis. C4-C5: There is mild bilateral uncovertebral joint osteoarthritis. There is severe right and moderate left facet joint osteoarthritis. There is mild bilateral neural foraminal stenosis. There is mild ce ntral canal stenosis. C5-C6: There is severe bilateral uncovertebral joint osteoarthritis. There is mild right and moderate left facet joint osteoarthritis. There is moderate bilateral neural foraminal stenosis. There is mil d central canal stenosis. C6-C7: There is severe bilateral uncovertebral joint osteoarthritis. There is mild bilateral facet kimo int osteoarthritis. There is mild right and moderate left neural foraminal stenosis. There is moderat e central canal stenosis. C7-T1: There is no uncovertebral joint osteoarthritis. There is severe bilateral facet joint osteoart hritis. There is moderate bilateral neural foraminal stenosis. There is no central canal stenosis. IMPRESSION: 1. No fracture. 2. Severe cervical spondylosis. Reviewed, dictated and finalized at location A.
--- NOTE | ~2024-04-13 | XR_ITS ---
EXAMINATION: XR humerus RT DATE: 04/13/2024 13:29 INDICATION: Right upper arm pain post fall TECHNIQUE: AP and lateral views of the right humerus were obtained. COMPARISON: None. FINDINGS: Bone alignment is normal. Linear lucency projecting over the right humeral head on the AP projection extends beyond the margins of bone consistent with either a skin fold or artifact of material externa l to the patient. No fractures identified. Moderate right jeronimo clavicular osteophytes and moderate to severe glenohumeral osteoarthritis. Mild osteoarthritis at the right elbow. Soft tissues are unrem arkable. IMPRESSION: 1. Moderate to severe right glenohumeral and moderate acromioclavicular osteoarthritis. No acute osse ous adenopathy. Reviewed, dictated and finalized at location A. IMPRESSION: 1. Moderate to severe right glenohumeral and moderate acromioclavicular osteoar thritis. No acute osseous adenopathy.
[2024-04-13] MEDS: SODIUM CHLORIDE 0.9% IV 1,000 ML 150 ML IV CONT (12:44)
[2024-04-13] MEDS: MORPHINE SULFATE (*CRX) 4 MG/ML INJ IV PUSH ×2 (12:47→13:51)
[2024-04-13] MEDS: ONDANSETRON INJ 4 MG/2 ML VIAL IV PUSH (12:47)
[2024-04-13 13:51] LABS: Basophils Absolute Auto 0.1 K/mm3 (0.0-0.1); Basophils Percent Auto 0.3 % (0.2-1.2); Eosinophils Percent Auto 0.1 % (0-4.4); Hematocrit 40.1 % (42.0-52.0); Hemoglobin 12.9 g/dL (14.0-18.0); Immature Granulocyte Absolute 0.18 K/mm3 (0.00-0.031); Lymphocytes Absolute Auto 0.58 K/mm3 (0.9-3.2); Lymphocytes Percent Auto 3.1 % (18.3-44.2); Mean Corpuscular HGB Conc 32.2 g/dl (32-36); Mean Corpuscular Hemoglobin 27.9 pg (26-34); Mean Corpuscular Volume 86.8 fl (80-100); Mean Platelet Volume 11.2 fl (7.4-10.4); Monocytes Absolute Auto 1.5 K/mm3 (0.1-0.6); Monocytes Percent Auto 7.8 % (2.6-8.5); Neutrophils Absolute Auto 16.6 K/mm3 (1.3-6.7); Neutrophils Percent Auto 87.7 % (45.5-73.1); Platelet Count Result 202 k/mm3 (150-375); Red Blood Count 4.62 M/mm3 (4.6-6.20); Red Cell Distribution Width 14.7 % (11.5-14.5); White Blood Count 18.9 K/mm3 (4.5-10.0)
[2024-04-13 14:04] LABS: Anion Gap 16 mmol/L (4-12); Blood Urea Nitrogen 50 mg/dL (9-20); Calcium 8.7 mg/dL (8.4-10.2); Carbon Dioxide 18 mmol/L (22-30); Chloride 98 mmol/L (98-107); Estimated CRCL calculation 45 ml/min; Estimated Glomerular Filt Rate 40; Glucose 199 mg/dL (65-110); Potassium 4.3 mmol/L (3.4-5.0); Sodium 132 mmol/L (137-145)
--- NOTE | 2024-04-13 14:58 | ED.GENADULT ---
HPI - General Adult General Chief complaint: Fall Stated complaint: fall Time Seen by Provider: 04/13/24 12:10 Source: patient Mode of arrival: EMS Limitations: no limitations History of Present Illness HPI narrative: 68-year-old with history of hypertension diabetes, recent left foot surgery brought in from home with multiple falls. Patient states that he was here in the ER last night after a fall. Patient was discharged home he woke up this morning and again fell. He denies head and neck injuries. No loss of consciousness. Patient also states that he has been having diarrhea for last few days. No history of fever or chills. Onset (ago): week(s) Location: right and upper extremity Radiation: non-radiation Severity: moderate Pain Consistency: constant Relieving factors: none Exacerbating factors: none Associated symptoms: denies other symptoms Related Data Home Medications Medication Instructions Recorded Confirmed ferrous sulfate 142 mg (45 mg 142 mg PO DAILY 03/29/24 04/03/24 iron) tablet,extended release (Slow Release Iron) gabapentin 300 mg capsule 300 mg PO TID 03/30/24 04/03/24 Allergies Allergy/AdvReac Type Severity Reaction Status Date / Time No Known Allergies Allergy Verified 04/03/24 12:48 Review of Systems Review of Systems: All systems reviewed & are unremarkable except as noted in HPI and below Constitutional: Constitutional: Reports no additional constitutional complaints Eyes: Eyes: Reports no additional eye complaints ENT: Reports system reviewed and no additional complaints, except as documented Cardiovascular: Cardiovascular: Reports no additional cardiovascular complaints Respiratory: Respiratory: Reports no additional respiratory complaints Gastrointestinal: Gastrointestinal: Reports no additional gastrointestinal complaints Musculoskeletal: Musculoskeletal: Reports as per HPI Neurologic: Reports system reviewed and no additional complaints, except as documented Psychiatric: Psychiatric: Reports no additional psychiatric complaints [facility] Past Medical History Medical History (Updated 04/13/24 @ 15:02 by Rusty Regalado MD) Chronic anemia Chronic constipation Chronic fatigue Chronic kidney disease, stage 3b Diabetic peripheral neuropathy Diarrhea Hypercholesterolemia Hypertension Obstructive sleep apnea Peripheral artery disease Type 2 diabetes mellitus Surgical History Surgical History (Updated 04/12/24 @ 10:44 by VIET Harper) History of amputation of lesser toe of left foot (06/2020) Left 4th toe History of arthroscopy of right knee S/P transmetatarsal amputation of foot Status post surgical removal of nail matrix of toe Family History Family History Father , age 62 Myocardial infarct Lung disease Mother , age 73 Lung disease Sibling , age 67 Lung disease Social History Social History Social History: Surrogate decision-maker: Mark Joanie (friend). Code status: Full code. Smoking status: Never smoker Second hand tobacco smoke exposure: No Additional smoking assessment comments: no form of nicotine use Alcohol intake: never Drinks per week: 1 Substance use: never Substance use type: marijuana Last use: 2018 Do You Feel Safe in your Home?: Yes Lack of Transportation: No Lack of Food: Sometimes True Current Housing: I Have Housing Concerned About Future Housing: No Difficulty Paying Gas/Electric Bills: YES Difficulty Paying for Meds: No Currently Unemployed: No Education: Decline to Answer Difficulty w/ Childcare or Family Care: No Living arrangements: alone Additional living arrangements comments: . He has no biological children. He lives in his own home in [place] with his cats. Occupation/Education: retired Spiritual care concerns:
--- NOTE | 2024-04-13 16:17 | ADMGEN ---
This patient, Rhett Spann, was admitted to Medical Room 342-01. Patient/family oriented to hospital policies and general routines including ID bracelet, bed and alarms, visiting hours, pain management, procedures, bathroom and other care routines, personal items, smoking policy, room service/diet, and visiting hours. Information on how to activate the Rapid Response Team has been discussed. Patient/Family are encouraged to report perceived risks to care and to ask questions if they do not understand what they are told or what they should do.
--- NOTE | 2024-04-13 16:57 | PM.IMHP ---
H&P: HPI History of Present Illness Date/Time: 04/13/24 16:30 Chief Complaint: Right arm and shoulder pain after fall. Narrative: This is a pleasant 68-year-old male with type 2 diabetes mellitus, chronic kidney disease, and chronic anemia who presented to the emergency department via private vehicle for evaluation of right arm and shoulder pain after a fall. The patient provides the following history. He was admitted to the hospital about 6 weeks ago with osteomyelitis of the left foot. Dr. Cotton performed left foot transmetatarsal amputation with debridement of a diabetic foot ulcer on 03/08/2024 and excisional debridement the ulcer to muscle as well as excision of exostosis of the metatarsals on 03/30/2024. He was placed in a total contact cast which was supposed to be changed the following week however he missed that appointment due to diarrhea, malaise, and weakness. He went to the ED yesterday for cast removal and was seen by Jaylin Llanes NP with Dr. Cotton. On exam she noted a small area in the middle of the incision consistent with stitch abscess; the surrounding tissue was reportedly without redness, warmth, or swelling. A small amount of drainage from the area was sent for Gram stain (WBCs noted as well as many Gram-positive cocci in clusters) and culture. He was discharged home with plans to follow-up with Dr. Cotton next week. He returned again today complaining of right arm and shoulder pain from a fall he had several days ago. With further questioning he admits that he has had multiple falls since discharge from hospital, stating that his cast is slippery and large which makes it difficult for him to ambulate with the walker. He goes on to say that he has not felt well for almost 10 days with generalized malaise, weakness, and diarrhea of which is quite frequent. His appetite has not been great and he feels as though he is dehydrated. Prior to 1 of the falls he was feeling extremely lightheaded and dizzy before he woke up on the floor on his right side. He believes that he briefly passed out. Since then he has had pain in the right arm and shoulder which has been nearly constant and is much worse with any range of motion. He also complains of pain across the back of the neck. He is unsure if there was any head trauma. He denies fever, headache, vertigo, focal weakness, paresthesias, sinus congestion, sore throat, cough, chest pain, pleuritic pain, vomiting, and dysuria. He denies recent travel and has no known history of C diff. Of note, per protocol RN performed the [place] suicide severity rating scale and the patient admitted that at times he has brief thoughts of suicide, mainly when he is in pain. He goes on to say that he likes life too much to ever commit suicide. He is not actively suicidal and has no plans. In the ED: He was afebrile on arrival with a blood pressure as low as 90/56. Labs were significant for WBC count of 18.9, hemoglobin 12.9, sodium 132, carbon dioxide 18, anion gap 16, BUN 50, creatinine 1.70, glucose 199. Right shoulder x-ray showed severe right glenohumeral and moderate acromioclavicular osteoarthritis and a small focus of right rotator cuff calcific tendinitis; no acute osseous abnormalities were seen. Right forearm and humerus x-rays did not show any acute findings. Right hip x-ray showed moderate osteoarthritis. Review of Systems Review of Systems: 12 systems were reviewed and are negative except for as per HPI. [facility] Past Medical History Medical History (Updated 04/13/24 @ 18:48 by Rasheeda Potts PA-C) Chronic anemia Chronic constipation Chronic fatigue Chronic kidney disease, stage 3b Diabetic peripheral neuropathy Hypercholesterolemia Hypertension Obstructive sleep apnea Peripheral artery disease Type 2 diabetes mellitus Surgical History Surgical History (Updated 04/13/24 @ 18:35 by Rasheeda Potts PA-C) History of amputation of lesser toe of left foot (06/2020) Left 4th toe History
[2024-04-13] MEDS: SODIUM CHLORIDE 0.9% IV 1,000 ML 75 ML IV CONT (16:59)
[2024-04-13 17:22] LABS: Glucose Point of Care 189 mg/dl (65-105)
[2024-04-13] MEDS: MORPHINE SULFATE (*CRX) 2 MG/ML INJ IV PUSH ×2 (17:43→21:38)
--- NOTE | 2024-04-13 17:49 | PCCCNOTE ---
CC called to the ED for placement of pt for PT/OT. Unable to be placed at this time due to insurance authorizations. Pt was given the options for rehab and he would like [facility] or [facility] if possible. I have not sent the referrals, d/t the physicians notes not being in. PASRR is completed. Pt does have a positive wound culture on preliminary report and has a 18.9 WBC.
[2024-04-13 20:08] LABS: Glucose Point of Care 177 mg/dl (65-105)
[2024-04-13] MEDS: SODIUM CHLORIDE 0.9% IV 1,000 ML 100 ML IV CONT (21:10)
[2024-04-13] MEDS: MENTHOL 10% / METHYL SALICYLATE 15% 57 GM TUBE 1 APPLIC TOPICAL (21:10)
--- NOTE | 2024-04-13 22:57 | PCRCNOTE ---
Pt does not have CPAP at home, had sleep study and states it wasn't recommended or ordered, and doesn't want one here
[2024-04-14] VITALS (15 sets, daily range): BP systolic 123–140; BP diastolic 47–73; PULSE 82–109; RESP 16–20; TEMP 36.3–38.1; O2SAT 90–96; BMI 30.6; BMI 10.0
[2024-04-14 05:52] LABS: Hematocrit 36.3 % (42.0-52.0); Hemoglobin 11.8 g/dL (14.0-18.0); Mean Corpuscular HGB Conc 32.5 g/dl (32-36); Mean Corpuscular Hemoglobin 28.1 pg (26-34); Mean Corpuscular Volume 86.4 fl (80-100); Platelet Count Result 224 k/mm3 (150-375); Red Cell Distribution Width 14.8 % (11.5-14.5); White Blood Count 15.3 K/mm3 (4.5-10.0)
[2024-04-14 06:03] LABS: Alanine Aminotransferase 20 U/L (6-50); Albumin Level 2.8 g/dL (3.5-5.1); Alkaline Phosphatase 124 U/L (38-126); Anion Gap 13 mmol/L (4-12); Aspartate Amino Transferase 25 U/L (17-59); Bilirubin,Total 0.7 mg/dL (0.2-1.3); Blood Urea Nitrogen 50 mg/dL (9-20); Calcium 8.2 mg/dL (8.4-10.2); Carbon Dioxide 22 mmol/L (22-30); Chloride 97 mmol/L (98-107); Estimated CRCL calculation 46 ml/min; Estimated Glomerular Filt Rate 43; Glucose 178 mg/dL (65-110); Magnesium 2.3 mg/dL (1.6-2.3); Potassium 4.4 mmol/L (3.4-5.0); Sodium 132 mmol/L (137-145)
[2024-04-14] MEDS: MORPHINE SULFATE (*CRX) 2 MG/ML INJ IV PUSH ×2 (06:11→09:42)
--- NOTE | 2024-04-14 07:24 | PM.IMPN ---
Progress Note: A&P Assessment and Plan (1) Multiple falls: Code(s): R29.6 - Repeated falls Status: Acute (2) Weakness: Code(s): R53.1 - Weakness Status: Acute (3) Diarrhea: Code(s): R19.7 - Diarrhea, unspecified Status: Acute (4) Diabetic foot ulcer: Code(s): E11.621 - Type 2 diabetes mellitus with foot ulcer; L97.509 - Non-pressure chronic ulcer of other part of unspecified foot with unspecified severity Status: Acute (5) Obstructive sleep apnea: Code(s): G47.33 - Obstructive sleep apnea (adult) (pediatric) Status: Acute (6) Type 2 diabetes mellitus: Qualifiers: Diabetes mellitus complication detail: with polyneuropathy Diabetes mellitus complication status: with neurologic complications Diabetes mellitus alf insulin use: without long filler cigar roller machine use Qualified Code(s): E11.42 - Type 2 diabetes mellitus with diabetic polyneuropathy Code(s): E11.9 - Type 2 diabetes mellitus without complications Status: Acute Plan # Ulcer of left foot due to type 2 diabetes mellitus #S/P transmetatarsal amputation of foot - Dr. Cotton performed left foot transmetatarsal amputation with debridement of a diabetic foot ulcer on 03/08/2024 and excisional debridement the ulcer to muscle as well as excision of exostosis of the metatarsals on 03/30/2024. -5 weeks status post initial TMA complicated by postoperative plantar wound. Patient returned to the OR 1 week, 7 days ago for revision of the left TMA. - He then presented to office for follow-up postoperatively and underwent total contact cast application. He was set to follow up in an H wound clinic for total contact cast removal and re-application on Tuesday but failed to present to clinic due to feeling unwell and having diarrhea and weakness -04/12 : In the ED Total contact cast removed by the emergency room physician and ortho was consulted . Ortho reports incision well approximated of the left TMA as side from a small area in the middle of the incision which appears to be consistent with a stitch abscess and small amount of drainage from the area was sent for Gram stain (WBCs noted as well as many Gram-positive cocci in clusters) and culture -Ortho recommended :Given patient's failure to improve status post initial TMA due to noncompliance with nonweightbearing, patient would benefit from repeat total contact cast application today. Plan for would of formed strip gauze to be tipped in to the area of poor approximation of the incision and TCC reapplied. Will follow wound cultures as an outpatient and patient will follow up upon d/c from the ER in the wound clinic for TCC change. Plan for suture removal 3 weeks postop due to poor wound healing history and DM. -04/13 : Patient again returned to ER due to right arm and shoulder pain after a fall. - 04/14 :Pending surgery consult. Patient wound culture returned back which shows Staph aureus and Pseudomonas aeruginosa. Patient is started on cefepime and vancomycin. # Multiple fall 2/2 fall due to cast vs Dehydration due diarrhea -EKG ordered -Labs reviewed -CT Cervical Spine,Brain CT,Humerus Xray,HIp xray, forearm xray, shoulder xray-no fractures -Pt reports bulky cast makes him to fall -C.diff ordered Subjective Date/time seen: 04/14/24 07:24 Interval history: 68-year-old male with type 2 diabetes mellitus, chronic kidney disease, and chronic anemia who presented to the emergency department via private vehicle for evaluation of right arm and shoulder pain after a fall.He was admitted to the hospital about 6 weeks ago with osteomyelitis of the left foot. Dr. Cotton performed left foot transmetatarsal amputation with debridement of a diabetic foot ulcer on 03/08/2024 and excisional debridement the ulcer to muscle as well as excision of exostosis of the metatarsals on 03/30/2024. 04/12: He went to the ED yesterday for cast removal and was seen by Jaylin Mello
--- NOTE | 2024-04-14 07:49 | ECG_ITS ---
Test Date: 2024-04-14 10:03:07 Measurements Intervals [place] Rate: 89 P: -3 AL: 142 QRS: 34 QRSD: 106 T: 38 QT: 351 QTc: 428 Interpretive Statements SINUS RHYTHM No previous ECG available for comparison Electronically Signed On 04-14-2024 14:45:45 CDT by Parker Call M.D.
[2024-04-14 09:24] LABS: Glucose Point of Care 193 mg/dl (65-105)
[2024-04-14] MEDS: ENOXAPARIN 40 MG/0.4 ML SYRINGE SUB-Q (09:24)
[2024-04-14] MEDS: CYANOCOBALAMIN 1,000 MCG TABLET 1000 MCG PO (09:24)
[2024-04-14] MEDS: EMPAGLIFLOZIN 25 MG TABLET PO (09:24)
[2024-04-14] MEDS: GABAPENTIN 300 MG CAPSULE PO ×3 (09:24→17:49)
[2024-04-14] MEDS: FERROUS SULFATE DRIED 142 MG TABCR PO (10:13)
[2024-04-14 12:04] LABS: Glucose Point of Care 213 mg/dl (65-105)
[2024-04-14] MEDS: HYDROmorphone HCL INJ (*CRX) 1 MG/ML SYR 0.5 MG IV PUSH ×2 (12:24→20:34)
[2024-04-14] MEDS: INSULIN ASPART (*BKC) 100 UNITS/ML SUB-Q (12:33)
[2024-04-14] MEDS: CEFEPIME 2 GM/NS 50 ML 2 GM/50 ML BAG IVPB ×2 (15:15→21:45)
[2024-04-14] MEDS: SODIUM CHLORIDE 0.9% IV 1,000 ML 100 ML IV CONT (15:15)
[2024-04-14] MEDS: VANCOMYCIN 1,250 MG/NS 250 ML 1,250 MG/250 ML BAG 166.67 MG IVPB ×2 (16:05→17:50)
[2024-04-14 17:23] LABS: Glucose Point of Care 151 mg/dl (65-105)
[2024-04-14] MEDS: ACETAMINOPHEN 325 MG TABLET 650 MG PO (17:50)
[2024-04-14 19:52] LABS: Glucose Point of Care 154 mg/dl (65-105)
[2024-04-15] VITALS (21 sets, daily range): BP systolic 93–159; BP diastolic 62–77; PULSE 73–108; RESP 18–30; TEMP 36.8–39.6; O2SAT 94–98
[2024-04-15] MEDS: SODIUM CHLORIDE 0.9% IV 1,000 ML 100 ML IV CONT (05:36)
[2024-04-15 05:57] LABS: Hematocrit 37.4 % (42.0-52.0); Hemoglobin 12.1 g/dL (14.0-18.0); Mean Corpuscular HGB Conc 32.4 g/dl (32-36); Mean Corpuscular Hemoglobin 27.9 pg (26-34); Mean Corpuscular Volume 86.2 fl (80-100); Mean Platelet Volume 10.7 fl (7.4-10.4); Platelet Count Result 245 k/mm3 (150-375); Red Blood Count 4.34 M/mm3 (4.6-6.20); White Blood Count 17.8 K/mm3 (4.5-10.0)
[2024-04-15 06:05] LABS: Alanine Aminotransferase 18 U/L (6-50); Albumin Level 2.7 g/dL (3.5-5.1); Alkaline Phosphatase 126 U/L (38-126); Anion Gap 13 mmol/L (4-12); Aspartate Amino Transferase 29 U/L (17-59); Bilirubin,Total 0.7 mg/dL (0.2-1.3); Blood Urea Nitrogen 40 mg/dL (9-20); Calcium 8.1 mg/dL (8.4-10.2); Carbon Dioxide 17 mmol/L (22-30); Chloride 102 mmol/L (98-107); Estimated CRCL calculation 53 ml/min; Estimated Glomerular Filt Rate 50; Glucose 122 mg/dL (65-110); Potassium 4.5 mmol/L (3.4-5.0); Sodium 132 mmol/L (137-145)
[2024-04-15] MEDS: CEFEPIME 2 GM/NS 50 ML 2 GM/50 ML BAG IVPB ×2 (08:09→20:31)
[2024-04-15] MEDS: ENOXAPARIN 40 MG/0.4 ML SYRINGE SUB-Q (08:10)
[2024-04-15] MEDS: CYANOCOBALAMIN 1,000 MCG TABLET 1000 MCG PO (08:10)
[2024-04-15] MEDS: EMPAGLIFLOZIN 25 MG TABLET PO (08:10)
[2024-04-15] MEDS: GABAPENTIN 300 MG CAPSULE PO ×3 (08:10→17:38)
[2024-04-15] MEDS: FERROUS SULFATE DRIED 142 MG TABCR PO (08:10)
[2024-04-15 08:24] LABS: Glucose Point of Care 113 mg/dl (65-105)
[2024-04-15] MEDS: HYDROmorphone HCL INJ (*CRX) 1 MG/ML SYR 0.5 MG IV PUSH (08:26)
--- NOTE | 2024-04-15 08:50 | PM.IMPN ---
Progress Note: A&P Assessment and Plan (1) Multiple falls: Code(s): R29.6 - Repeated falls Status: Acute (2) Weakness: Code(s): R53.1 - Weakness Status: Acute (3) Diarrhea: Code(s): R19.7 - Diarrhea, unspecified Status: Acute (4) Diabetic foot ulcer: Code(s): E11.621 - Type 2 diabetes mellitus with foot ulcer; L97.509 - Non-pressure chronic ulcer of other part of unspecified foot with unspecified severity Status: Acute (5) Obstructive sleep apnea: Code(s): G47.33 - Obstructive sleep apnea (adult) (pediatric) Status: Acute (6) Type 2 diabetes mellitus: Qualifiers: Diabetes mellitus complication detail: with polyneuropathy Diabetes mellitus complication status: with neurologic complications Diabetes mellitus intermediate manager insulin use: without intermediate manager use Qualified Code(s): E11.42 - Type 2 diabetes mellitus with diabetic polyneuropathy Code(s): E11.9 - Type 2 diabetes mellitus without complications Status: Acute Plan Ulcer of left foot due to type 2 diabetes mellitus #S/P transmetatarsal amputation of foot - Dr. Cotton performed left foot transmetatarsal amputation with debridement of a diabetic foot ulcer on 03/08/2024 and excisional debridement the ulcer to muscle as well as excision of exostosis of the metatarsals on 03/30/2024. -5 weeks status post initial TMA complicated by postoperative plantar wound. Patient returned to the OR 1 week, 7 days ago for revision of the left TMA. - He then presented to office for follow-up postoperatively and underwent total contact cast application. He was set to follow up in an H wound clinic for total contact cast removal and re-application on Tuesday but failed to present to clinic due to feeling unwell and having diarrhea and weakness -04/12 : In the ED Total contact cast removed by the emergency room physician and ortho was consulted . Ortho reports incision well approximated of the left TMA as side from a small area in the middle of the incision which appears to be consistent with a stitch abscess and small amount of drainage from the area was sent for Gram stain (WBCs noted as well as many Gram-positive cocci in clusters) and culture -Ortho recommended :Given patient's failure to improve status post initial TMA due to noncompliance with nonweightbearing, patient would benefit from repeat total contact cast application today. Plan for would of formed strip gauze to be tipped in to the area of poor approximation of the incision and TCC reapplied. Will follow wound cultures as an outpatient and patient will follow up upon d/c from the ER in the wound clinic for TCC change. Plan for suture removal 3 weeks postop due to poor wound healing history and DM. -04/13 : Patient again returned to ER due to right arm and shoulder pain after a fall. - 04/14 :Pending surgery consult. Patient wound culture returned back which shows Staph aureus and Pseudomonas aeruginosa. Patient is started on cefepime and vancomycin. 04/15 continue current antibiotics, patient is afebrile, older records Pseudomonas hours and Pseudomonas aeruginosa Pending susceptibility add Flagyl to cover anaerobic infection, follow-up wound culture, procalcitonins deescalate UTI Urinalysis cloudy urine, hematuria, white blood cell 5 Patient has dysuria, urinary urgency Patient is on antibiotics Follow urine culture Right blood cell Likely secondary to acute cystitis # Multiple fall 2/2 fall due to cast vs Dehydration due diarrhea Consult PT OT home health care respiratory therapist for evaluation and assisting placement -EKG ordered -Labs reviewed -CT Cervical Spine,Brain CT,Humerus Xray,HIp xray, forearm xray, shoulder xray-no fractures -Pt reports bulky cast makes him to fall -C.diff ordered Subjective Date/time seen: 04/15/24 08:50 Exam Narrative: GENERAL: Pleasant, in no acute distress. Well-nourished. - EYES: EOMI. Anicteric. - HENT: Moist m
--- NOTE | 2024-04-15 11:18 | PM.CNOR ---
Assessment and Plan Assessment and plan (1) Diabetic foot ulcer: Code(s): E11.621 - Type 2 diabetes mellitus with foot ulcer; L97.509 - Non-pressure chronic ulcer of other part of unspecified foot with unspecified severity Status: Acute Assessment and Plan: S/P LEFT FOOT AMPUTATION AT TRANS MET LEVEL NOW IN A CONTACT CAST. HE HAS A HISTORY OF OSTEOMYELITIS WELL. HISTORY, EXAM AND RADIOGRAPHS REVIEWED WITH THE PATIENT. REFERRING PHYSICIAN RECORDS AND IMAGES REVIEWED. CONDITION, NATURE, ETIOLOGY AND COURSE OF NATURAL HISTORY REVIEWED. CONSERVATIVE AND OPERATIVE TREATMENT OPTIONS REVIEWED WELL THE RISKS AND BENEFITS OF EACH. RECOMMEND CONTINUE CURRENT ANTIBIOTIC REGIMEN. HE WILL F/U WITH DR BETANCOURT FOR REMOVAL OF CAST AND EVALUATION OF HIS WOUND. HIS ELEVATED WBC COUNT MAY BE EXPLAINED BY HIS UTI WELL. RECOMMEND UP TO CHAIR AND AMBULATION WELL WITH PT ASSISTANCE. WE WILL CONTINUE TO FOLLOW. (2) S/P transmetatarsal amputation of foot: Qualifiers: Laterality: left Qualified Code(s): Z89.432 - Acquired absence of left foot Code(s): Z89.439 - Acquired absence of unspecified foot Status: Acute History of Present Illness HPI Consult date: 04/15/24 Chief complaint: Frequent Falls Narrative: SCOTT IS HERE FOR F/U OF HIS LEFT FOOT TRANSMETATARSAL AMPUTATION AND FOOT ULCER. HE WAS SEEN IN THE ED THIS PAST TUESDAY 4 DAYS AGO AND HAD A CONTACT CAST PLACED. AT THAT TIME ACCORDING TO THE CONSULT THE WOUND APPEARED TO BE HEALING WELL WITH SOME DRAINAGE. HE DID HAVE CULTURES TAKEN AT THE TIME WHICH HAS GROWN STAPH AUREUS AND PSEUDOMONAS. A CONTACT CAST WAS PLACED. THE PATIENT WAS TOLD TO F/U IN THE OFFICE. HE THEN SUSTAINED A FALL TO HIS RIGHT SHOULDER AND HAD PAIN AND WAS SEEN IN THE ED. HE WAS RULED OUT FOR A RIGHT UPPER EXTREMITY FRACTURE. HE CURRENTLY HAS A URINE FUNGAL INFECTION AND UTI AND IS BEING TREATED FOR SUCH WELL FOR HIS FOOT ACCORDING TO MEDICINE. HE DENIES ANY FOOT PAIN. HE HAS AN ELEVATED WBC COUNT AND NO SIGNIFICANT FEVER. HE DENIES ANY OTHER PROBLEMS. Review of Systems Review of Systems: All systems reviewed & are unremarkable except as noted in HPI and below PMFSH Past Medical History Medical History Chronic anemia Chronic constipation Chronic fatigue Chronic kidney disease, stage 3b Diabetic peripheral neuropathy Hypercholesterolemia Hypertension Obstructive sleep apnea Peripheral artery disease Type 2 diabetes mellitus Surgical History Surgical History History of amputation of lesser toe of left foot (06/2020) Left 4th toe History of arthroscopy of right knee History of transmetatarsal amputation of left foot (02/2024) Status post surgical removal of nail matrix of toe Family History Family History Father , age 62 Myocardial infarct Lung disease Mother , age 73 Lung disease Sibling , age 67 Lung disease Social History Social History Social History: Surrogate decision-maker: Mark Nair (friend). Code status: Full code. Smoking status: Never smoker Second hand tobacco smoke exposure: No Alcohol intake: never Substance use: never Do You Feel Safe in your Home?: Yes Lack of Transportation: No Lack of Food: Sometimes True Current Housing: I Have Housing Concerned About Future Housing: No Difficulty Paying Gas/Electric Bills: YES Difficulty Paying for Meds: No Currently Unemployed: No Education: Decline to Answer Difficulty w/ Childcare or Family Care: No Living arrangements: alone Additional living arrangements comments: . He has no biological children. He lives in his own home in [place] with his cats. Occupation/Education: retired [employer]
[2024-04-15 11:25] LABS: Procalcitonin 0.3 ng/mL
[2024-04-15 12:02] LABS: Glucose Point of Care 179 mg/dl (65-105)
[2024-04-15] MEDS: metroNIDAZOLE 500 MG/ISO 100ML 500 MG/100 ML BAG 100 MG IVPB ×2 (12:20→20:30)
[2024-04-15] MEDS: ACETAMINOPHEN 325 MG TABLET 650 MG PO ×2 (14:00→17:38)
[2024-04-15] MEDS: VANCOMYCIN 1,500 MG/NS 500 ML 1,500 MG/500 ML BAG 250 MG IVPB (14:46)
[2024-04-15] MEDS: IBUPROFEN 400 MG TABLET PO (15:23)
[2024-04-15 15:27] LABS: Bacteria Urine None Seen /hpf; Non Pathogenic Casts 0-2; RBC Urine 51-100 /hpf (0-2); Squamous Epithelial Cell Urine None Seen /hpf (Few)
[2024-04-15 15:37] LABS: Appearance Urine Sl Cloudy (Clear); Color Urine Yellow (Yellow); Glucose Urine UA 3+ mg/dL (Negative); Protein Urine 1+ mg/dL (Negative); pH Urine 5.5 (5.0-9.0)
[2024-04-15 15:38] LABS: Add Urine Microscopic? YES; Bilirubin Urine Negative (Negative); Blood Urine 3+ (Negative); Ketones Urine 2+ mg/dL (Negative); Leukocyte Esterase Ur Negative LEU/UL (Negative); Nitrate Urine Negative (Negative); Urobilinogen Urine 0.2 mg/dL (<2.0)
[2024-04-15] MEDS: SODIUM CHLORIDE 0.9% IV 1,000 ML 150 ML IV CONT (16:05)
[2024-04-15 16:23] LABS: Lactic Acid Reflex 0.8 mmol/L (0.7-2.0)
[2024-04-15 16:30] LABS: Glucose Point of Care 175 mg/dl (65-105)
[2024-04-15 20:10] LABS: Glucose Point of Care 203 mg/dl (65-105)
[2024-04-16] VITALS (11 sets, daily range): BP systolic 120–148; BP diastolic 61–87; PULSE 73–94; RESP 18–22; TEMP 36.5–37.6; O2SAT 96–100
[2024-04-16] MEDS: HYDROmorphone HCL INJ (*CRX) 1 MG/ML SYR 0.5 MG IV PUSH ×2 (04:17→23:02)
[2024-04-16] MEDS: metroNIDAZOLE 500 MG/ISO 100ML 500 MG/100 ML BAG 100 MG IVPB ×3 (04:17→19:59)
[2024-04-16] MEDS: SODIUM CHLORIDE 0.9% IV 1,000 ML 150 ML IV CONT ×3 (04:18→17:39)
[2024-04-16 05:28] LABS: Estimated CRCL calculation 61 ml/min; Estimated Glomerular Filt Rate 60
[2024-04-16 08:32] LABS: Glucose Point of Care 148 mg/dl (65-105)
--- NOTE | 2024-04-16 08:45 | PM.IMPN ---
Progress Note: A&P Assessment and Plan (1) Multiple falls: Code(s): R29.6 - Repeated falls Status: Acute (2) Weakness: Code(s): R53.1 - Weakness Status: Acute (3) Diarrhea: Code(s): R19.7 - Diarrhea, unspecified Status: Acute (4) Diabetic foot ulcer: Code(s): E11.621 - Type 2 diabetes mellitus with foot ulcer; L97.509 - Non-pressure chronic ulcer of other part of unspecified foot with unspecified severity Status: Acute (5) Obstructive sleep apnea: Code(s): G47.33 - Obstructive sleep apnea (adult) (pediatric) Status: Acute (6) Type 2 diabetes mellitus: Qualifiers: Diabetes mellitus complication detail: with polyneuropathy Diabetes mellitus complication status: with neurologic complications Diabetes mellitus buttermaker insulin use: without buttermaker use Qualified Code(s): E11.42 - Type 2 diabetes mellitus with diabetic polyneuropathy Code(s): E11.9 - Type 2 diabetes mellitus without complications Status: Acute Plan Ulcer of left foot due to type 2 diabetes mellitus #S/P transmetatarsal amputation of foot - Dr. Cotton performed left foot transmetatarsal amputation with debridement of a diabetic foot ulcer on 03/08/2024 and excisional debridement the ulcer to muscle as well as excision of exostosis of the metatarsals on 03/30/2024. -5 weeks status post initial TMA complicated by postoperative plantar wound. Patient returned to the OR 1 week, 7 days ago for revision of the left TMA. - He then presented to office for follow-up postoperatively and underwent total contact cast application. He was set to follow up in an H wound clinic for total contact cast removal and re-application on Tuesday but failed to present to clinic due to feeling unwell and having diarrhea and weakness -04/12 : In the ED Total contact cast removed by the emergency room physician and ortho was consulted . Ortho reports incision well approximated of the left TMA as side from a small area in the middle of the incision which appears to be consistent with a stitch abscess and small amount of drainage from the area was sent for Gram stain (WBCs noted as well as many Gram-positive cocci in clusters) and culture -Ortho recommended :Given patient's failure to improve status post initial TMA due to noncompliance with nonweightbearing, patient would benefit from repeat total contact cast application today. Plan for would of formed strip gauze to be tipped in to the area of poor approximation of the incision and TCC reapplied. Will follow wound cultures as an outpatient and patient will follow up upon d/c from the ER in the wound clinic for TCC change. Plan for suture removal 3 weeks postop due to poor wound healing history and DM. -04/13 : Patient again returned to ER due to right arm and shoulder pain after a fall. - 04/14 :Pending surgery consult. Patient wound culture returned back which shows Staph aureus and Pseudomonas aeruginosa. Patient is started on cefepime and vancomycin. 04/15 continue current antibiotics, patient is afebrile, older records Pseudomonas hours and Pseudomonas aeruginosa Pending susceptibility add Flagyl to cover anaerobic infection, follow-up wound culture, procalcitonins deescalate 04/16: sepsis Likely resulting from 1) multifocal pneumonia Patient had had fever yesterday, leukocytosis, chest x-ray showed multifocal pneumonia involving right middle lobe, and also showed consolidation in the left lung 2) foot ulcer, wound culture grows Pseudomonas aeruginosa and MSSA Pending blood culture and urine culture 3): UTI, repeat urinalysis showed pyuria Continue cefepime and Flagyl IV, DC vancomycin today, MRSA negative c/w NS iv UTI Urinalysis cloudy urine, hematuria, white blood cell 5 Patient has dysuria, urinary urgency Patient is on antibiotics Follow urine culture Right blood cell Likely secondary to acute cystitis # Multiple fall 2/2 fall due to cast
[2024-04-16] MEDS: CEFEPIME 2 GM/NS 50 ML 2 GM/50 ML BAG IVPB ×2 (08:50→21:09)
[2024-04-16] MEDS: ENOXAPARIN 40 MG/0.4 ML SYRINGE SUB-Q (08:52)
[2024-04-16] MEDS: GABAPENTIN 300 MG CAPSULE PO ×3 (08:53→16:05)
[2024-04-16] MEDS: CYANOCOBALAMIN 1,000 MCG TABLET 1000 MCG PO (08:53)
[2024-04-16] MEDS: EMPAGLIFLOZIN 25 MG TABLET PO (08:53)
[2024-04-16] MEDS: FERROUS SULFATE DRIED 142 MG TABCR PO (08:53)
[2024-04-16] MEDS: HYDROcodone/acetaminophen (*CRX) 5-325 MG TABLET 1 TAB PO ×2 (08:57→17:34)
[2024-04-16 09:34] LABS: Basophils Absolute Auto 0.1 K/mm3 (0.0-0.1); Basophils Percent Auto 0.7 % (0.2-1.2); Eosinophils Absolute Auto 0.3 K/mm3 (0-0.3); Eosinophils Percent Auto 1.4 % (0-4.4); Hematocrit 44.8 % (42.0-52.0); Hemoglobin 13.6 g/dL (14.0-18.0); Immature Granulocyte Absolute 0.16 K/mm3 (0.00-0.031); Immature Granulocyte Percent A 0.9 % (0-0.5); Immature Platelet Fraction Pct 3.6 % (0.9-11.2); Lymphocytes Absolute Auto 0.67 K/mm3 (0.9-3.2); Lymphocytes Percent Auto 3.9 % (18.3-44.2); Mean Corpuscular HGB Conc 30.4 g/dl (32-36); Mean Corpuscular Hemoglobin 28.2 pg (26-34); Mean Corpuscular Volume 92.8 fl (80-100); Mean Platelet Volume 11.3 fl (7.4-10.4); Monocytes Absolute Auto 1.6 K/mm3 (0.1-0.6); Monocytes Percent Auto 9.2 % (2.6-8.5); Neutrophils Absolute Auto 14.5 K/mm3 (1.3-6.7); Neutrophils Percent Auto 83.9 % (45.5-73.1); Platelet Count Result 190 k/mm3 (150-375); Red Blood Count 4.83 M/mm3 (4.6-6.20); Red Cell Distribution Width 15.7 % (11.5-14.5); White Blood Count 17.3 K/mm3 (4.5-10.0)
[2024-04-16 09:46] LABS: Anion Gap 12 mmol/L (4-12); Blood Urea Nitrogen 46 mg/dL (9-20); Calcium 8.3 mg/dL (8.4-10.2); Carbon Dioxide 14 mmol/L (22-30); Chloride 108 mmol/L (98-107); Estimated CRCL calculation 61 ml/min; Estimated Glomerular Filt Rate 60; Glucose 154 mg/dL (65-110); Potassium 4.2 mmol/L (3.4-5.0); Sodium 134 mmol/L (137-145)
[2024-04-16 12:23] LABS: Glucose Point of Care 176 mg/dl (65-105)
[2024-04-16] MEDS: VANCOMYCIN 1,500 MG/NS 500 ML 1,500 MG/500 ML BAG 250 MG IVPB (16:05)
[2024-04-16 17:33] LABS: Glucose Point of Care 130 mg/dl (65-105)
[2024-04-16] MEDS: MENTHOL 10% / METHYL SALICYLATE 15% 57 GM TUBE 1 APPLIC TOPICAL (23:15)
[2024-04-17] VITALS (12 sets, daily range): BP systolic 69–147; BP diastolic 46–77; PULSE 73–89; RESP 16–22; TEMP 36.5–37.2; O2SAT 98–100
[2024-04-17] LABS: Toxigenic C. Diff POSITIVE (NEGATIVE)
[2024-04-17 01:25] LABS: Glucose Point of Care 192 mg/dl (65-105)
[2024-04-17] MEDS: SODIUM CHLORIDE 0.9% IV 1,000 ML 150 ML IV CONT ×2 (02:29→10:39)
[2024-04-17] MEDS: metroNIDAZOLE 500 MG/ISO 100ML 500 MG/100 ML BAG 100 MG IVPB ×2 (04:06→12:20)
[2024-04-17] MEDS: HYDROcodone/acetaminophen (*CRX) 5-325 MG TABLET 1 TAB PO ×2 (04:08→20:27)
[2024-04-17 06:45] LABS: Basophils Absolute Auto 0.1 K/mm3 (0.0-0.1); Basophils Percent Auto 0.4 % (0.2-1.2); Eosinophils Absolute Auto 0.5 K/mm3 (0-0.3); Eosinophils Percent Auto 2.6 % (0-4.4); Hematocrit 35.4 % (42.0-52.0); Hemoglobin 11.1 g/dL (14.0-18.0); Immature Granulocyte Absolute 0.18 K/mm3 (0.00-0.031); Lymphocytes Absolute Auto 1.15 K/mm3 (0.9-3.2); Lymphocytes Percent Auto 6.3 % (18.3-44.2); Mean Corpuscular HGB Conc 31.4 g/dl (32-36); Mean Corpuscular Hemoglobin 27.6 pg (26-34); Mean Corpuscular Volume 88.1 fl (80-100); Mean Platelet Volume 11.5 fl (7.4-10.4); Monocytes Absolute Auto 1.5 K/mm3 (0.1-0.6); Monocytes Percent Auto 8.1 % (2.6-8.5); Neutrophils Percent Auto 81.6 % (45.5-73.1); Platelet Count Result 238 k/mm3 (150-375); Red Blood Count 4.02 M/mm3 (4.6-6.20); Red Cell Distribution Width 15.7 % (11.5-14.5); White Blood Count 18.4 K/mm3 (4.5-10.0)
[2024-04-17 06:52] LABS: Anion Gap 8 mmol/L (4-12); Blood Urea Nitrogen 38 mg/dL (9-20); Calcium 7.4 mg/dL (8.4-10.2); Carbon Dioxide 16 mmol/L (22-30); Chloride 106 mmol/L (98-107); Estimated CRCL calculation 68 ml/min; Estimated Glomerular Filt Rate > 60; Glucose 140 mg/dL (65-110); Sodium 130 mmol/L (137-145)
[2024-04-17 07:10] LABS: Procalcitonin 0.5 ng/mL
[2024-04-17] MEDS: HYDROmorphone HCL INJ (*CRX) 1 MG/ML SYR 0.5 MG IV PUSH (07:52)
[2024-04-17] MEDS: FIDAXOMICIN 200 MG TABLET PO ×2 (08:22→20:28)
[2024-04-17] MEDS: GABAPENTIN 300 MG CAPSULE PO ×3 (08:22→17:02)
[2024-04-17] MEDS: CYANOCOBALAMIN 1,000 MCG TABLET 1000 MCG PO (08:22)
[2024-04-17] MEDS: FERROUS SULFATE DRIED 142 MG TABCR PO (08:22)
[2024-04-17] MEDS: EMPAGLIFLOZIN 25 MG TABLET PO (08:22)
[2024-04-17] MEDS: ENOXAPARIN 40 MG/0.4 ML SYRINGE SUB-Q (08:22)
[2024-04-17] MEDS: CEFEPIME 2 GM/NS 50 ML 2 GM/50 ML BAG IVPB (08:23)
[2024-04-17] MEDS: IBUPROFEN 400 MG TABLET PO ×2 (08:24→23:13)
[2024-04-17 08:38] LABS: Glucose Point of Care 116 mg/dl (65-105)
[2024-04-17] MEDS: SODIUM CHLORIDE 0.9% IV 1,000 ML 999 ML IV CONT (08:48)
[2024-04-17 09:16] LABS: Hematocrit 39.1 % (42.0-52.0); Hemoglobin 12.3 g/dL (14.0-18.0); Mean Corpuscular HGB Conc 31.5 g/dl (32-36); Mean Corpuscular Hemoglobin 27.9 pg (26-34); Mean Corpuscular Volume 88.7 fl (80-100); Platelet Count Result 303 k/mm3 (150-375); Red Blood Count 4.41 M/mm3 (4.6-6.20); Red Cell Distribution Width 15.5 % (11.5-14.5); White Blood Count 22.1 K/mm3 (4.5-10.0)
[2024-04-17 09:20] LABS: Lactic Acid Reflex 1.5 mmol/L (0.7-2.0)
--- NOTE | 2024-04-17 09:37 | PM.CNOR ---
Assessment and Plan Assessment and plan (1) Bacteremia: Code(s): R78.81 - Bacteremia Status: Acute Assessment and Plan: Blood cultures with preliminary results revealing Gram-positive cocci in clusters. Final cultures pending. (2) C. difficile diarrhea: Code(s): A04.72 - Enterocolitis due to Clostridium difficile, not specified as recurrent Status: Acute Assessment and Plan: Patient with reported 2 week history of diarrhea. Tested positive for C diff today. Defer treatment to hospitalist service. Patient is on isolation precautions. (3) UTI (urinary tract infection): Code(s): N39.0 - Urinary tract infection, site not specified Status: Acute Assessment and Plan: UTI. Patient is on cefepime and Flagyl IV. Urine culture pending. (4) S/P transmetatarsal amputation of foot: Qualifiers: Laterality: left Qualified Code(s): Z89.432 - Acquired absence of left foot Code(s): Z89.439 - Acquired absence of unspecified foot Status: Acute Assessment and Plan: 2 weeks, 4 days status post revision of left TMA. Cast removed today. Sutures removed as well. Incision remains well approximated aside from wound at the mid substance of the incision line which communicates to the plantar foot wound which was present prior to 2nd surgery for TMA revision. Mild sanguinous drainage. No malodor. Surrounding tissue without significant redness, warmth or swelling. Wound cultures from initial ED our visit on 04/12 resulted with Staphylococcus aureus and pseudomonas aeruginosa. Patient is currently on IV antibiotics for UTI, PNA and C. diff. No acute indication for return to operating room for debridement of the left foot at this time. Begin daily dressing changes with silver gel, strip gauze and covered dry. Continue to monitor for worsening wound changes. Would not recommend repeat total contact cast application at this time in order to have a closer assessment of the wound and perform daily dressing changes. We will continue to monitor. (5) Multiple falls: Code(s): R29.6 - Repeated falls Status: Acute (6) Weakness: Code(s): R53.1 - Weakness Status: Acute Assessment and Plan: Likely due to dehydration and current medical complications. Fall risk. Total contact cast removed today. Weightbearing on the heel of the left foot when able to work with PT and OT. Up to the chair as tolerated. (7) Diarrhea: Code(s): R19.7 - Diarrhea, unspecified Status: Acute Assessment and Plan: Patient with reported 1.5 week history of diarrhea. Tested positive for C diff. Defer treatment to hospitalist service. Patient is on isolation precautions. (8) Pneumonia: Code(s): J18.9 - Pneumonia, unspecified organism Status: Resolved Assessment and Plan: Patient with fevers and leukocytosis. Chest x-ray from 04/15 reads multifocal pneumonia involving the right and middle lobe. Consolidation also noted on the left lobe. Plan Reviewed history, exam, radiographs and current labs with attending MD and covering surgeon, Dr. Cotton, who agrees with current plan as indicated above. No further recommendations from Dr. Cotton at this time. History of Present Illness HPI Consult date: 04/17/24 Chief complaint: Frequent Falls Narrative: Orthopedic consult for this 68-year-old male well known to the Orthopedic Service. Patient is 5 weeks status post initial TMA complicated by postoperative plantar wound. Patient returned to the OR 2 weeks, 4 days ago for revision of the left TMA. Initially, the patient was scheduled to follow up in the Wound Clinic on Tuesday 04/10 for a 2nd cast change but did not make it due to feeling unwell. At that time, he reported weakness and diarrhea when called upon for his missed appointment. He was contacted again the following day and requested that he arrived to the office for an appointment
[2024-04-17 10:22] LABS: Troponin I < 0.012 ng/mL (0.000-0.034)
[2024-04-17 10:28] LABS: Procalcitonin 0.5 ng/mL
[2024-04-17 12:27] LABS: Glucose Point of Care 125 mg/dl (65-105)
[2024-04-17 12:51] LABS: Troponin I < 0.012 ng/mL (0.000-0.034)
[2024-04-17 13:28] LABS: Alanine Aminotransferase 15 U/L (6-50); Albumin Level 2.2 g/dL (3.5-5.1); Alkaline Phosphatase 93 U/L (38-126); Anion Gap 11 mmol/L (4-12); Aspartate Amino Transferase 35 U/L (17-59); Bilirubin,Total 0.4 mg/dL (0.2-1.3); Blood Urea Nitrogen 37 mg/dL (9-20); Calcium 7.5 mg/dL (8.4-10.2); Carbon Dioxide 16 mmol/L (22-30); Chloride 104 mmol/L (98-107); Estimated CRCL calculation 62 ml/min; Estimated Glomerular Filt Rate 60; Glucose 130 mg/dL (65-110); Potassium 4.2 mmol/L (3.4-5.0); Sodium 131 mmol/L (137-145)
--- NOTE | 2024-04-17 14:21 | PCPTNOTE ---
Attempted to see patient for PT, however patient declined due to not feeling well. Patient was a rapid this morning.
--- NOTE | 2024-04-17 14:26 | PCOTNOTE ---
Per RN, Patient had a Rapid Response called this A.M. due to decrease in blood pressures. Patient is able to perform activity in the bed for this P.M. Patient having low blood pressures. Patient attempted and refused to participate this session. Will try back tomorrow.
--- NOTE | 2024-04-17 15:25 | PCRCNOTE ---
Patient refused ABG. RN is aware.
--- NOTE | 2024-04-17 15:30 | PM.IMPN ---
Progress Note: A&P Assessment and Plan (1) Multiple falls: Code(s): R29.6 - Repeated falls Status: Acute (2) Weakness: Code(s): R53.1 - Weakness Status: Acute (3) Diarrhea: Code(s): R19.7 - Diarrhea, unspecified Status: Acute (4) Diabetic foot ulcer: Code(s): E11.621 - Type 2 diabetes mellitus with foot ulcer; L97.509 - Non-pressure chronic ulcer of other part of unspecified foot with unspecified severity Status: Acute (5) Obstructive sleep apnea: Code(s): G47.33 - Obstructive sleep apnea (adult) (pediatric) Status: Acute (6) Type 2 diabetes mellitus: Qualifiers: Diabetes mellitus parts counterman insulin use: without parts counterman use Diabetes mellitus complication status: with neurologic complications Diabetes mellitus complication detail: with polyneuropathy Qualified Code(s): E11.42 - Type 2 diabetes mellitus with diabetic polyneuropathy Code(s): E11.9 - Type 2 diabetes mellitus without complications Status: Acute Plan Ulcer of left foot due to type 2 diabetes mellitus #S/P transmetatarsal amputation of foot - Dr. Cotton performed left foot transmetatarsal amputation with debridement of a diabetic foot ulcer on 03/08/2024 and excisional debridement the ulcer to muscle as well as excision of exostosis of the metatarsals on 03/30/2024. -5 weeks status post initial TMA complicated by postoperative plantar wound. Patient returned to the OR 1 week, 7 days ago for revision of the left TMA. - He then presented to office for follow-up postoperatively and underwent total contact cast application. He was set to follow up in an H wound clinic for total contact cast removal and re-application on Tuesday but failed to present to clinic due to feeling unwell and having diarrhea and weakness -04/12 : In the ED Total contact cast removed by the emergency room physician and ortho was consulted . Ortho reports incision well approximated of the left TMA as side from a small area in the middle of the incision which appears to be consistent with a stitch abscess and small amount of drainage from the area was sent for Gram stain (WBCs noted as well as many Gram-positive cocci in clusters) and culture -Ortho recommended :Given patient's failure to improve status post initial TMA due to noncompliance with nonweightbearing, patient would benefit from repeat total contact cast application today. Plan for would of formed strip gauze to be tipped in to the area of poor approximation of the incision and TCC reapplied. Will follow wound cultures as an outpatient and patient will follow up upon d/c from the ER in the wound clinic for TCC change. Plan for suture removal 3 weeks postop due to poor wound healing history and DM. -04/13 : Patient again returned to ER due to right arm and shoulder pain after a fall. - 04/14 :Pending surgery consult. Patient wound culture returned back which shows Staph aureus and Pseudomonas aeruginosa. Patient is started on cefepime and vancomycin. 04/15 continue current antibiotics, patient is afebrile, older records Pseudomonas hours and Pseudomonas aeruginosa Pending susceptibility add Flagyl to cover anaerobic infection, follow-up wound culture, procalcitonins deescalate 04/16: sepsis Likely resulting from 1) multifocal pneumonia Patient had had fever yesterday, leukocytosis, chest x-ray showed multifocal pneumonia involving right middle lobe, and also showed consolidation in the left lung 2) foot ulcer, wound culture grows Pseudomonas aeruginosa and MSSA Pending blood culture and urine culture 3): UTI, repeat urinalysis showed pyuria 4): C diff colitis Patient was hupotensive this mornign and CXR was unremarkable, thus CT Chest and AP, with MRi cervical ordered Abx changed to Meropenem, Doxycycline and Vanc Continue NS at 75/hr monitor closely UTI Urinalysis cloudy urine, hematuria, white blood cell 5 Patient has dysuria, urinary urgency Pa
[2024-04-17 15:32] LABS: Vancomycin Trough 12.7 ug/mL (10.0-20.0)
[2024-04-17 17:05] LABS: Glucose Point of Care 116 mg/dl (65-105)
[2024-04-17] MEDS: VANCOMYCIN 1,500 MG/NS 500 ML 1,500 MG/500 ML BAG 250 MG IVPB (17:06)
[2024-04-17] MEDS: MEROPENEM 1 GM/NS 100 ML 1 GM/100 ML BAG IVPB (19:14)
[2024-04-17] MEDS: DOXYCYCLINE 100 MG/NS 100 ML 100 MG/100 ML BAG IVPB (20:21)
[2024-04-17 21:30] LABS: Glucose Point of Care 92 mg/dl (65-105)
[2024-04-17] MEDS: traZODone HCL 50 MG TABLET 150 MG PO (23:13)
[2024-04-17] MEDS: SODIUM CHLORIDE 0.9% IV 1,000 ML 75 ML IV CONT (23:14)
[2024-04-18] VITALS (11 sets, daily range): BP systolic 112–133; BP diastolic 54–96; PULSE 78–98; RESP 16–20; TEMP 36.3–36.8; O2SAT 95–100
--- NOTE | 2024-04-18 | ECHO_ITS ---
Patient Info Name: Rhett Spann Age: 68 years : 1955 Gender: Male Ht: 70 in Wt: 221 lbs BSA: 2.25 m2 HR: 85 bpm BP: 125 / 61 mmHg Heart Rhythm: Sinus Rhythm Technical Quality: Good Exam Date: 04/18/2024 9:58 AM Exam Location: Echo Lab Patient Status: Inpatient Admit Date: 04/15/2024 Staff Ordering Physician: Leticia Sanchez MD Paper Sample Clerk: Helena Zepeda RDCS Attending Provider: Jeremiah Turner MD Exam Type: CA echo doppler color flow Study Info Indications - pericardial effusion Complete two-dimensional, color flow and Doppler transthoracic echocardiogram is performed. Summary 1. Left ventricular chamber dimension is normal. 2. Left ventricular systolic function is normal, estimated at 65-70%. 3. There is moderate asymmetric septal increased left ventricular wall thickness. 4. The left ventricular diastolic function is grade I diastolic dysfunction. 5. Right ventricular systolic function is normal. 6. There is mild tricuspid valve regurgitation. 7. There is trivial pericardial effusion. Left Ventricle Left ventricular chamber dimension is normal. Left ventricular systolic function is normal, estimated at 65-70%. There is moderate asymmetric septal increased left ventricular wall thickness. The left ventricular diastolic function is grade I diastolic dysfunction. Right Ventricle Right ventricular chamber dimension is normal. Right ventricular systolic function is normal. Left Atria Left atrial chamber dimension is normal. Right Atria Right atrial chamber dimension is normal. Atrial Septum Intact interatrial septum visualized by color flow imaging. Aortic Valve The aortic valve is trileaflet. There is no aortic valve stenosis. There is no aortic valve regurgitation. There is mild aortic valve calcification. Pulmonic Valve The pulmonic valve is not well visualized. There is no pulmonic regurgitation. Mitral Valve There is trace mitral valve regurgitation. Tricuspid Valve There is mild tricuspid valve regurgitation. Pericardium/Pleural There is trivial pericardial effusion. Inferior Vena Cava Normal inferior vena cava with >50% collapse upon inspiration consistent with normal right atrial pressure, 3 mmHg. Aorta The aortic root size at the sinus of Valsalva is normal. Left Ventricular Outflow Tract Name Value Normal LVOT 2D LVOT Diameter 2.1 cm LVOT Doppler LVOT Peak Gradient 8 mmHg LVOT Mean Gradient 4 mmHg LVOT VTI 29 cm LVOT VTI/AV VTI Ratio 0.8 LVOT Stroke Volume 103 ml LVOT CO 8.2 l/min LVOT CI 3.6 l/min/m2 Pulmonic Valve Name Value Normal RVOT Doppler RVOT Peak Gradient 4 mmHg PV Doppler
[2024-04-18] MEDS: MEROPENEM 1 GM/NS 100 ML 1 GM/100 ML BAG IVPB ×2 (02:30→10:38)
[2024-04-18] MEDS: HYDROcodone/acetaminophen (*CRX) 5-325 MG TABLET 1 TAB PO ×3 (04:54→23:49)
[2024-04-18 05:43] LABS: Basophils Absolute Auto 0.1 K/mm3 (0.0-0.1); Basophils Percent Auto 0.4 % (0.2-1.2); Eosinophils Absolute Auto 0.3 K/mm3 (0-0.3); Eosinophils Percent Auto 2.5 % (0-4.4); Hematocrit 33.4 % (42.0-52.0); Hemoglobin 10.6 g/dL (14.0-18.0); Immature Granulocyte Absolute 0.16 K/mm3 (0.00-0.031); Immature Granulocyte Percent A 1.2 % (0-0.5); Lymphocytes Absolute Auto 1.04 K/mm3 (0.9-3.2); Lymphocytes Percent Auto 7.5 % (18.3-44.2); Mean Corpuscular HGB Conc 31.7 g/dl (32-36); Mean Corpuscular Hemoglobin 27.4 pg (26-34); Mean Corpuscular Volume 86.3 fl (80-100); Mean Platelet Volume 10.5 fl (7.4-10.4); Monocytes Percent Auto 6.9 % (2.6-8.5); Neutrophils Absolute Auto 11.2 K/mm3 (1.3-6.7); Neutrophils Percent Auto 81.5 % (45.5-73.1); Platelet Count Result 228 k/mm3 (150-375); Red Blood Count 3.87 M/mm3 (4.6-6.20); Red Cell Distribution Width 15.8 % (11.5-14.5); White Blood Count 13.8 K/mm3 (4.5-10.0)
[2024-04-18 05:54] LABS: Anion Gap 10 mmol/L (4-12); Blood Urea Nitrogen 31 mg/dL (9-20); Calcium 7.4 mg/dL (8.4-10.2); Carbon Dioxide 14 mmol/L (22-30); Chloride 105 mmol/L (98-107); Estimated CRCL calculation 68 ml/min; Estimated Glomerular Filt Rate > 60; Glucose 109 mg/dL (65-110); Potassium 3.8 mmol/L (3.4-5.0); Sodium 129 mmol/L (137-145)
[2024-04-18] MEDS: DOXYCYCLINE 100 MG/NS 100 ML 100 MG/100 ML BAG IVPB ×2 (08:42→20:09)
[2024-04-18] MEDS: GABAPENTIN 300 MG CAPSULE PO ×3 (08:44→17:22)
[2024-04-18] MEDS: ENOXAPARIN 40 MG/0.4 ML SYRINGE SUB-Q (08:44)
[2024-04-18] MEDS: CYANOCOBALAMIN 1,000 MCG TABLET 1000 MCG PO (08:44)
[2024-04-18] MEDS: FIDAXOMICIN 200 MG TABLET PO ×2 (08:44→20:10)
[2024-04-18] MEDS: FERROUS SULFATE DRIED 142 MG TABCR PO (08:44)
[2024-04-18] MEDS: EMPAGLIFLOZIN 25 MG TABLET PO (08:44)
[2024-04-18] MEDS: IBUPROFEN 400 MG TABLET PO ×2 (09:00→20:10)
[2024-04-18 09:18] LABS: Glucose Point of Care 113 mg/dl (65-105)
[2024-04-18] MEDS: VANCOMYCIN 1,500 MG/NS 500 ML 1,500 MG/500 ML BAG 250 MG IVPB (10:35)
[2024-04-18 12:14] LABS: Glucose Point of Care 146 mg/dl (65-105)
--- NOTE | 2024-04-18 14:26 | PM.PNORT ---
Progress Note: A&P Assessment and Plan (1) Ulcer of left foot due to type 2 diabetes mellitus: Code(s): E11.621 - Type 2 diabetes mellitus with foot ulcer; L97.529 - Non-pressure chronic ulcer of other part of left foot with unspecified severity Status: Acute Assessment and Plan: dressing change left foot. Small area of central wound dehiscence and plantar ulcer. No signs of infection. No signs of osteomyelitis. No further surgical indication at this time. Will leave total contact cast off while patient is in hospital. Continue with daily dressing changes with wound packing. Agree with IV antibiotics for his bacteremia and other infectious etiologies. (2) S/P transmetatarsal amputation of foot: Qualifiers: Laterality: left Qualified Code(s): Z89.432 - Acquired absence of left foot Code(s): Z89.439 - Acquired absence of unspecified foot Status: Acute (3) Cervical muscle strain: Qualifiers: Encounter type: subsequent encounter Qualified Code(s): S16.1XXD - Strain of muscle, fascia and tendon at neck level, subsequent encounter Code(s): S16.1XXA - Strain of muscle, fascia and tendon at neck level, initial encounter Status: Acute Assessment and Plan: MRI cervical spine shows acute cervical strain without fracture. Continue with conservative care. (4) Lumbar stenosis: Qualifiers: Neurogenic claudication status: with neurogenic claudication Qualified Code(s): M48.062 - Spinal stenosis, lumbar region with neurogenic claudication Code(s): M48.061 - Spinal stenosis, lumbar region without neurogenic claudication Status: Acute Assessment and Plan: Complains of neck and low back pain today as well as right shoulder. History of several falls and strain of the neck and low back. Cervical spine MRI negative for fracture. Okay to mobilize with therapy. Discussed with patient. Agree with conservative treatment. Subjective Subjective Date/Time Seen: 04/18/24 14:26 Post Op day: 19 Principal diagnosis: left diabetic foot ulcer Interval history: patient in bed. Complains of neck and low back pain right shoulder pain. History of several falls over the past several days. Denies left foot pain. Exam Const: General: comfortable; No acute distress Resp: Effort & Inspection: normal respiratory effort and no audible wheezes Extrem: Right lower extremity: lower leg ( Negative Homans sign), ankle Details: normal ROM ( dorsiflexion and plantar flexion intact) and foot Details: vascular exam Details: dorsalis pedis pulse present and normal capillary refill, tendon exam Details: active flexion normal and active extension normal and motor-sensory exam Details: light-touch normal Location: in all toes; no edema Other: LT foot Dressing removed. Transmetatarsal amputation incision well healed except for the central 1 cm with opening. Gauze packing in place. Minimal serous drainage. No purulence. No erythema. Mild swelling. Plantar ulcer [address] Mild serous drainage without purulence Or erythema. Objective Data Vital Signs Vital Signs: Vital Signs - 24 hr 04/17/24 16:00 04/17/24 16:00 04/17/24 20:33 Temperature 97.7 F 98.6 F Pulse Rate 73 73 84 Respiratory Rate 20 20 Blood Pressure 124/63 147/77 H Pulse Oximetry 100 100 04/17/24 20:00 04/17/24 23:47 04/18/24 00:00 Temperature 98.2 F Pulse Rate 79 79 79 Respiratory Rate 18 Blood Pressure 123/59 L Pulse Oximetry 98 04/18/24 04:00 04/18/24 04:00 04/18/24 09:13 Temperature 98.0 F Pulse Rate 87 88 85 Respiratory Rate 18 Blood Pressure 125/61 Pulse Oximetry 100 04/18/24 08:00 04/18/24 12:00 04/18/24 12:00 Temperature 97.3 F L 97.5 F L Pulse Rate 78 84 84 Respiratory Rate 20 20 Blood Pressure 123/57 L 133/65 Pulse Oximetry 98 98 Intake/Output Intake/Output: Intake & Output 04/15/24 04/16/24
--- NOTE | 2024-04-18 15:00 | PM.IMPN ---
Progress Note: A&P Assessment and Plan (1) Multiple falls: Code(s): R29.6 - Repeated falls Status: Acute (2) Weakness: Code(s): R53.1 - Weakness Status: Acute (3) Diarrhea: Code(s): R19.7 - Diarrhea, unspecified Status: Acute (4) Diabetic foot ulcer: Code(s): E11.621 - Type 2 diabetes mellitus with foot ulcer; L97.509 - Non-pressure chronic ulcer of other part of unspecified foot with unspecified severity Status: Acute (5) Obstructive sleep apnea: Code(s): G47.33 - Obstructive sleep apnea (adult) (pediatric) Status: Acute (6) Type 2 diabetes mellitus: Qualifiers: Diabetes mellitus termite technician insulin use: without termite technician use Diabetes mellitus complication status: with neurologic complications Diabetes mellitus complication detail: with polyneuropathy Qualified Code(s): E11.42 - Type 2 diabetes mellitus with diabetic polyneuropathy Code(s): E11.9 - Type 2 diabetes mellitus without complications Status: Acute Plan Ulcer of left foot due to type 2 diabetes mellitus #S/P transmetatarsal amputation of foot - Dr. Cotton performed left foot transmetatarsal amputation with debridement of a diabetic foot ulcer on 03/08/2024 and excisional debridement the ulcer to muscle as well as excision of exostosis of the metatarsals on 03/30/2024. -5 weeks status post initial TMA complicated by postoperative plantar wound. Patient returned to the OR 1 week, 7 days ago for revision of the left TMA. - He then presented to office for follow-up postoperatively and underwent total contact cast application. He was set to follow up in an H wound clinic for total contact cast removal and re-application on Tuesday but failed to present to clinic due to feeling unwell and having diarrhea and weakness -04/12 : In the ED Total contact cast removed by the emergency room physician and ortho was consulted . Ortho reports incision well approximated of the left TMA as side from a small area in the middle of the incision which appears to be consistent with a stitch abscess and small amount of drainage from the area was sent for Gram stain (WBCs noted as well as many Gram-positive cocci in clusters) and culture -Ortho recommended :Given patient's failure to improve status post initial TMA due to noncompliance with nonweightbearing, patient would benefit from repeat total contact cast application today. Plan for would of formed strip gauze to be tipped in to the area of poor approximation of the incision and TCC reapplied. Will follow wound cultures as an outpatient and patient will follow up upon d/c from the ER in the wound clinic for TCC change. Plan for suture removal 3 weeks postop due to poor wound healing history and DM. -04/13 : Patient again returned to ER due to right arm and shoulder pain after a fall. - 04/14 :Pending surgery consult. Patient wound culture returned back which shows Staph aureus and Pseudomonas aeruginosa. Patient is started on cefepime and vancomycin. 04/15 continue current antibiotics, patient is afebrile, older records Pseudomonas hours and Pseudomonas aeruginosa Pending susceptibility add Flagyl to cover anaerobic infection, follow-up wound culture, procalcitonin deescalate 04/16: sepsis with Staph aureus bacteremia Likely resulting from wound infection 1) multifocal pneumonia Patient had had fever yesterday, leukocytosis, chest x-ray showed multifocal pneumonia involving right middle lobe, and also showed consolidation in the left lung 2) foot ulcer, wound culture grows Pseudomonas aeruginosa and MSSA Pending blood culture and urine culture 3): UTI, repeat urinalysis showed pyuria 4): C diff colitis hypotension resolved, leukocytosis improving, MRI cervical spine no acute changes. Abx changed to Cefepime , Doxycycline and Vanc ECHO no significant valvular abnormalities Continue Fidaxomicin Continue NS at 75/hr monitor closely Will discuss MRI fo
--- NOTE | 2024-04-18 15:21 | PCPTNOTE ---
Patient refused treatment this session due to not feeling well. Educated patient on the importance of therapy and gave encouragement, patient had friend on phone giving encouragement to participate as well, patient continued to refuse.
[2024-04-18 17:00] LABS: Glucose Point of Care 162 mg/dl (65-105)
[2024-04-18] MEDS: SODIUM CHLORIDE 0.9% IV 1,000 ML 75 ML IV CONT (17:51)
[2024-04-18] MEDS: HYDROmorphone HCL INJ (*CRX) 1 MG/ML SYR 0.5 MG IV PUSH (18:42)
[2024-04-18] MEDS: CEFEPIME 2 GM/NS 50 ML 2 GM/50 ML BAG IVPB (20:11)
[2024-04-18 20:47] LABS: Glucose Point of Care 191 mg/dl (65-105)
[2024-04-18] MEDS: traZODone HCL 50 MG TABLET 150 MG PO (23:51)
[2024-04-19] VITALS (7 sets, daily range): BP systolic 115–156; BP diastolic 44–74; PULSE 77–95; RESP 17–18; TEMP 36.1–36.9; O2SAT 96–100
[2024-04-19] MEDS: VANCOMYCIN 1,500 MG/NS 500 ML 1,500 MG/500 ML BAG 250 MG IVPB (03:54)
[2024-04-19] MEDS: IBUPROFEN 400 MG TABLET PO (03:56)
[2024-04-19 05:33] LABS: Basophils Absolute Auto 0.1 K/mm3 (0.0-0.1); Basophils Percent Auto 0.5 % (0.2-1.2); Eosinophils Absolute Auto 0.4 K/mm3 (0-0.3); Eosinophils Percent Auto 4.3 % (0-4.4); Hematocrit 33.3 % (42.0-52.0); Hemoglobin 10.8 g/dL (14.0-18.0); Immature Granulocyte Absolute 0.15 K/mm3 (0.00-0.031); Immature Granulocyte Percent A 1.5 % (0-0.5); Lymphocytes Absolute Auto 1.22 K/mm3 (0.9-3.2); Lymphocytes Percent Auto 12.3 % (18.3-44.2); Mean Corpuscular HGB Conc 32.4 g/dl (32-36); Mean Corpuscular Hemoglobin 28.3 pg (26-34); Mean Corpuscular Volume 87.2 fl (80-100); Mean Platelet Volume 10.4 fl (7.4-10.4); Monocytes Absolute Auto 0.9 K/mm3 (0.1-0.6); Monocytes Percent Auto 8.8 % (2.6-8.5); Neutrophils Absolute Auto 7.2 K/mm3 (1.3-6.7); Neutrophils Percent Auto 72.6 % (45.5-73.1); Platelet Count Result 220 k/mm3 (150-375); Red Blood Count 3.82 M/mm3 (4.6-6.20); Red Cell Distribution Width 15.8 % (11.5-14.5); White Blood Count 9.9 K/mm3 (4.5-10.0)
[2024-04-19 05:46] LABS: Alanine Aminotransferase 19 U/L (6-50); Alkaline Phosphatase 78 U/L (38-126); Anion Gap 6 mmol/L (4-12); Aspartate Amino Transferase 32 U/L (17-59); Bilirubin,Total 0.2 mg/dL (0.2-1.3); Blood Urea Nitrogen 24 mg/dL (9-20); Calcium 7.8 mg/dL (8.4-10.2); Carbon Dioxide 19 mmol/L (22-30); Chloride 109 mmol/L (98-107); Estimated CRCL calculation 62 ml/min; Estimated Glomerular Filt Rate 60; Glucose 129 mg/dL (65-110); Magnesium 2.1 mg/dL (1.6-2.3); Potassium 4.4 mmol/L (3.4-5.0); Sodium 134 mmol/L (137-145)
[2024-04-19 05:51] LABS: Lactic Acid Reflex < 0.5 mmol/L (0.7-2.0)
[2024-04-19 08:53] LABS: Glucose Point of Care 138 mg/dl (65-105)
[2024-04-19] MEDS: GABAPENTIN 300 MG CAPSULE PO ×3 (09:15→18:13)
[2024-04-19] MEDS: FERROUS SULFATE DRIED 142 MG TABCR PO (09:15)
[2024-04-19] MEDS: FIDAXOMICIN 200 MG TABLET PO ×2 (09:15→22:02)
[2024-04-19] MEDS: CYANOCOBALAMIN 1,000 MCG TABLET 1000 MCG PO (09:15)
[2024-04-19] MEDS: HYDROcodone/acetaminophen (*CRX) 5-325 MG TABLET 1 TAB PO ×2 (09:16→18:13)
[2024-04-19] MEDS: EMPAGLIFLOZIN 25 MG TABLET PO (09:16)
[2024-04-19] MEDS: ALBUMIN HUMAN 25% 25 GM/100 ML 100 ML IVPB (09:16)
[2024-04-19] MEDS: CEFEPIME 2 GM/NS 50 ML 2 GM/50 ML BAG IVPB (09:16)
[2024-04-19] MEDS: DOXYCYCLINE 100 MG/NS 100 ML 100 MG/100 ML BAG IVPB (09:17)
[2024-04-19] MEDS: ENOXAPARIN 40 MG/0.4 ML SYRINGE SUB-Q (09:28)
--- NOTE | 2024-04-19 12:07 | PM.IMPN ---
Progress Note: A&P Assessment and Plan (1) Multiple falls: Code(s): R29.6 - Repeated falls Status: Acute (2) Weakness: Code(s): R53.1 - Weakness Status: Acute (3) Diarrhea: Code(s): R19.7 - Diarrhea, unspecified Status: Acute (4) Diabetic foot ulcer: Code(s): E11.621 - Type 2 diabetes mellitus with foot ulcer; L97.509 - Non-pressure chronic ulcer of other part of unspecified foot with unspecified severity Status: Acute (5) Obstructive sleep apnea: Code(s): G47.33 - Obstructive sleep apnea (adult) (pediatric) Status: Acute (6) Type 2 diabetes mellitus: Qualifiers: Diabetes mellitus intermediate designer insulin use: without intermediate designer use Diabetes mellitus complication status: with neurologic complications Diabetes mellitus complication detail: with polyneuropathy Qualified Code(s): E11.42 - Type 2 diabetes mellitus with diabetic polyneuropathy Code(s): E11.9 - Type 2 diabetes mellitus without complications Status: Acute Plan Ulcer of left foot due to type 2 diabetes mellitus #S/P transmetatarsal amputation of foot - Dr. Cotton performed left foot transmetatarsal amputation with debridement of a diabetic foot ulcer on 03/08/2024 and excisional debridement the ulcer to muscle as well as excision of exostosis of the metatarsals on 03/30/2024. -5 weeks status post initial TMA complicated by postoperative plantar wound. Patient returned to the OR 1 week, 7 days ago for revision of the left TMA. - He then presented to office for follow-up postoperatively and underwent total contact cast application. He was set to follow up in an H wound clinic for total contact cast removal and re-application on Tuesday but failed to present to clinic due to feeling unwell and having diarrhea and weakness -04/12 : In the ED Total contact cast removed by the emergency room physician and ortho was consulted . Ortho reports incision well approximated of the left TMA as side from a small area in the middle of the incision which appears to be consistent with a stitch abscess and small amount of drainage from the area was sent for Gram stain (WBCs noted as well as many Gram-positive cocci in clusters) and culture -Ortho recommended :Given patient's failure to improve status post initial TMA due to noncompliance with nonweightbearing, patient would benefit from repeat total contact cast application today. Plan for would of formed strip gauze to be tipped in to the area of poor approximation of the incision and TCC reapplied. Will follow wound cultures as an outpatient and patient will follow up upon d/c from the ER in the wound clinic for TCC change. Plan for suture removal 3 weeks postop due to poor wound healing history and DM. -04/13 : Patient again returned to ER due to right arm and shoulder pain after a fall. - 04/14 :Pending surgery consult. Patient wound culture returned back which shows Staph aureus and Pseudomonas aeruginosa. Patient is started on cefepime and vancomycin. 04/15 continue current antibiotics, patient is afebrile, older records Pseudomonas hours and Pseudomonas aeruginosa Pending susceptibility add Flagyl to cover anaerobic infection, follow-up wound culture, procalcitonin deescalate 04/16: sepsis with Staph aureus bacteremia Likely resulting from wound infection 1) multifocal pneumonia Patient had had fever yesterday, leukocytosis, chest x-ray showed multifocal pneumonia involving right middle lobe, and also showed consolidation in the left lung 2) foot ulcer, wound culture grows Pseudomonas aeruginosa and MSSA Pending blood culture and urine culture 3): UTI, repeat urinalysis showed pyuria 4): C diff colitis hypotension resolved, leukocytosis improving, MRI cervical spine no acute changes. Abx changed to Levaquin and Ancef ECHO no significant valvular abnormalities Continue Fidaxomicin monitor closely MRI foot pending repeat blood culture UTI, ruled
--- NOTE | 2024-04-19 12:34 | PCNFU ---
Nutrition Follow-Up Complete: Potential for inadequate oral intake related to loss of appetite, increased protein needs from wounds as evidenced by recent weight loss, report of decreased appetite Goal:Adequate PO intake at least 75% meals and supplements Pt progressing towards goal. Continue with same goal. Pt current nutrition is Diabetic consistent carb, RASHAD BID, Glucerna shakes BID. Nutrition recommendation: continue with current plan of care Last recorded weight is 100.4 kg. Bowel Motility: +BM 04/18 Labs Reviewed: Hgb:10.8, HCT:33.3, Alb:2.0, NA:134, BUN:24, Glu:129 Meds Noted: jardiance, lovenox, novolog, zofran Skin: DM ulcer to foot Additional Notes: Pt continues on a diabetic diet, intake 50% at this time. RASHAD and Glucerna shakes in place BID. Agree with orders, encourage po intake of meals and supplements. Monitoring intakes, weights, labs, supplement tolerance, wounds, plan of care Follow up in 5 days
[2024-04-19 12:57] LABS: Glucose Point of Care 181 mg/dl (65-105)
[2024-04-19] MEDS: SODIUM CHLORIDE 0.9% IV 1,000 ML 75 ML IV CONT (13:39)
[2024-04-19] MEDS: ceFAZolin 2 GM/D5W 50 ML 2 GM/50 ML BAG IVPB ×2 (13:39→22:04)
[2024-04-19 17:40] LABS: Glucose Point of Care 170 mg/dl (65-105)
[2024-04-19 20:43] LABS: Glucose Point of Care 158 mg/dl (65-105)
[2024-04-19] MEDS: traZODone HCL 50 MG TABLET 150 MG PO (22:02)
[2024-04-19] MEDS: levoFLOXacin 750 MG/D5W 150 ML 750 MG/150 ML BAG 100 MG IVPB (22:03)
[2024-04-20] VITALS (11 sets, daily range): BP systolic 129–178; BP diastolic 69–83; PULSE 85–96; RESP 18; TEMP 36.7–37.1; O2SAT 95–100
[2024-04-20] MEDS: ceFAZolin 2 GM/D5W 50 ML 2 GM/50 ML BAG IVPB ×3 (05:22→22:13)
[2024-04-20 05:41] LABS: Basophils Percent Auto 0.4 % (0.2-1.2); Eosinophils Absolute Auto 0.3 K/mm3 (0-0.3); Eosinophils Percent Auto 3.1 % (0-4.4); Hematocrit 34.7 % (42.0-52.0); Hemoglobin 11.1 g/dL (14.0-18.0); Immature Granulocyte Absolute 0.22 K/mm3 (0.00-0.031); Immature Granulocyte Percent A 2.2 % (0-0.5); Lymphocytes Absolute Auto 0.95 K/mm3 (0.9-3.2); Lymphocytes Percent Auto 9.5 % (18.3-44.2); Mean Corpuscular Hemoglobin 27.2 pg (26-34); Mean Platelet Volume 10.4 fl (7.4-10.4); Monocytes Absolute Auto 0.9 K/mm3 (0.1-0.6); Monocytes Percent Auto 8.8 % (2.6-8.5); Neutrophils Absolute Auto 7.6 K/mm3 (1.3-6.7); Platelet Count Result 275 k/mm3 (150-375); Red Blood Count 4.08 M/mm3 (4.6-6.20); Red Cell Distribution Width 15.4 % (11.5-14.5)
[2024-04-20 05:53] LABS: Alanine Aminotransferase 19 U/L (6-50); Albumin Level 2.5 g/dL (3.5-5.1); Alkaline Phosphatase 81 U/L (38-126); Anion Gap 10 mmol/L (4-12); Aspartate Amino Transferase 34 U/L (17-59); Bilirubin,Total 0.4 mg/dL (0.2-1.3); Blood Urea Nitrogen 20 mg/dL (9-20); Carbon Dioxide 17 mmol/L (22-30); Chloride 103 mmol/L (98-107); Estimated CRCL calculation 74 ml/min; Estimated Glomerular Filt Rate > 60; Glucose 144 mg/dL (65-110); Lactic Acid Reflex 0.7 mmol/L (0.7-2.0); Magnesium 1.9 mg/dL (1.6-2.3); Potassium 4.1 mmol/L (3.4-5.0); Sodium 130 mmol/L (137-145)
[2024-04-20] MEDS: FIDAXOMICIN 200 MG TABLET PO ×2 (09:01→22:13)
[2024-04-20] MEDS: FERROUS SULFATE DRIED 142 MG TABCR PO (09:01)
[2024-04-20] MEDS: CYANOCOBALAMIN 1,000 MCG TABLET 1000 MCG PO (09:01)
[2024-04-20] MEDS: EMPAGLIFLOZIN 25 MG TABLET PO (09:01)
[2024-04-20] MEDS: GABAPENTIN 300 MG CAPSULE PO ×3 (09:01→18:09)
[2024-04-20] MEDS: ENOXAPARIN 40 MG/0.4 ML SYRINGE SUB-Q (09:02)
[2024-04-20] MEDS: HYDROcodone/acetaminophen (*CRX) 5-325 MG TABLET 1 TAB PO ×3 (09:02→23:43)
[2024-04-20] MEDS: SODIUM CHLORIDE 0.9% IV 1,000 ML 75 ML IV CONT (09:04)
[2024-04-20 09:12] LABS: Glucose Point of Care 162 mg/dl (65-105)
[2024-04-20 12:17] LABS: Glucose Point of Care 209 mg/dl (65-105)
--- NOTE | 2024-04-20 12:31 | PM.PNORT ---
Progress Note: A&P Assessment and Plan (1) Ulcer of left foot due to type 2 diabetes mellitus: Code(s): E11.621 - Type 2 diabetes mellitus with foot ulcer; L97.529 - Non-pressure chronic ulcer of other part of left foot with unspecified severity Status: Acute Assessment and Plan: Dressing change left foot. Small area of central wound dehiscence and plantar ulcer. No purulence, no malodor. Left foot MRI reviewed. MRI was performed with packing gauze still in place. Discussed with Dr. George. MRI reveals first, second, fifth distal transmetatarsal osteotomies with osteomyelitis extending proximally in the remaining first-third and fifth metatarsals with a draining abscess extending across the first-third osteotomy margins and small abscess along the lateral posterior margin of the fifth metatarsal. Continue daily dressing changes and IV antibiotics for bacteremia, pneumonia and foot wound. WBC showing improvement. Wound able to actively drain with wound openings on the dorsum and plantar forefoot. Continue strip gauze/packing. No erythema or malodor. Once improvement in overall medical stability, may need to further consider repeat debridement of TMA vs. BKA. Will discuss with Dr. Cotton to determine definitive treatment plan from a surgical standpoint. Will order new ABIs in the interim. (2) S/P transmetatarsal amputation of foot: Qualifiers: Laterality: left Qualified Code(s): Z89.432 - Acquired absence of left foot Code(s): Z89.439 - Acquired absence of unspecified foot Status: Acute (3) Cervical muscle strain: Qualifiers: Encounter type: subsequent encounter Qualified Code(s): S16.1XXD - Strain of muscle, fascia and tendon at neck level, subsequent encounter Code(s): S16.1XXA - Strain of muscle, fascia and tendon at neck level, initial encounter Status: Acute Assessment and Plan: MRI cervical spine shows acute cervical strain without fracture. Continue with conservative care. (4) Lumbar stenosis: Qualifiers: Neurogenic claudication status: with neurogenic claudication Qualified Code(s): M48.062 - Spinal stenosis, lumbar region with neurogenic claudication Code(s): M48.061 - Spinal stenosis, lumbar region without neurogenic claudication Status: Acute Assessment and Plan: Complains of neck and low back pain today as well as right shoulder. History of several falls and strain of the neck and low back. Cervical spine MRI negative for fracture. Okay to mobilize with therapy. Discussed with patient. Agree with conservative treatment. Subjective Subjective Date/Time Seen: 04/20/24 12:31 Post Op day: 21 Principal diagnosis: left diabetic foot ulcer Interval history: Patient alert and oriented, laying in bed. Complains of right shoulder pain and intermittent chest pain with shortness of breath. History of several falls over the past several days. Denies left foot pain. Review of Systems Review of Systems: 12 systems were reviewed and are negative except for as per HPI. Exam Const: General: comfortable; No acute distress Resp: Effort & Inspection: normal respiratory effort and no audible wheezes Extrem: Right lower extremity: lower leg ( Negative Homans sign), ankle Details: normal ROM ( dorsiflexion and plantar flexion intact) and foot Details: vascular exam Details: dorsalis pedis pulse present and normal capillary refill, tendon exam Details: active flexion normal and active extension normal and motor-sensory exam Details: light-touch normal Location: in all toes; no edema Other: LT foot Dressing removed. Transmetatarsal amputation incision well healed except for the central 1 cm with opening. Gauze packing in place. Minimal serous drainage. No purulence. No erythema. Mild swelling. Plantar ulcer [address] Mild serous drainage without purulence Or erythema. Objective Data Vit
[2024-04-20] MEDS: INSULIN ASPART (*BKC) 100 UNITS/ML SUB-Q (12:57)
--- NOTE | 2024-04-20 13:38 | PCPTNOTE ---
The patient treatment was not able to be completed at this time due to patient out of room for testing . Will plan to continue treatment per plan of care.
--- NOTE | 2024-04-20 16:57 | PM.IMPN ---
Progress Note: A&P Assessment and Plan (1) Multiple falls: Code(s): R29.6 - Repeated falls Status: Acute (2) Weakness: Code(s): R53.1 - Weakness Status: Acute (3) Diarrhea: Code(s): R19.7 - Diarrhea, unspecified Status: Acute (4) Diabetic foot ulcer: Code(s): E11.621 - Type 2 diabetes mellitus with foot ulcer; L97.509 - Non-pressure chronic ulcer of other part of unspecified foot with unspecified severity Status: Acute Assessment and Plan: MRI left foot IMPRESSION: 1. First second fifth distal transmetatarsal osteotomies with osteomyelitis extending proximally in the remaining first-third and fifth metatarsals with large draining abscess extending across the first-third osteotomy margins and small abscess along the lateral posterior margin of the fifth metatarsal. 2. Prominent marrow edema and enhancement at both sides of the second and third tarsal metatarsal joints without loss of T1 fat signal suspicious for septic arthritis on the Lisfranc joint with associated and reactive marrow changes versus early osteomyelitis. 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 Cotton performed left foot transmetatarsal amputation with debridement of a diabetic foot ulcer on 03/08/2024 and excisional debridement the ulcer to muscle as well as excision of exostosis of the metatarsals on 03/30/2024. -5 weeks status post initial TMA complicated by postoperative plantar wound. Patient returned to the OR 1 week, 7 days ago for revision of the left TMA. - He then presented to office for follow-up postoperatively and underwent total contact cast application. He was set to follow up in an H wound clinic for total contact cast removal and re-application on Tuesday but failed to present to clinic due to feeling unwell and having diarrhea and weakness -04/12 : In the ED Total contact cast removed by the emergency room physician and ortho was consulted . Ortho reports incision well approximated of the left TMA as side from a small area in the middle of the incision which appears to be consistent with a stitch abscess and small amount of drainage from the area was sent for Gram stain (WBCs noted as well as many Gram-positive cocci in clusters) and culture -Ortho recommended :Given patient's failure to improve status post initial TMA due to noncompliance with nonweightbearing, patient would benefit from repeat total contact cast application today. Plan for would of formed strip gauze to be tipped in to the area of poor approximation of the incision and TCC reapplied. Will follow wound cultures as an outpatient and patient will follow up upon d/c from the ER in the wound clinic for TCC change. Plan for suture removal 3 weeks postop due to poor wound healing history and DM. -04/13 : Patient again returned to ER due to right arm and shoulder pain after a fall. - 04/14 :Pending surgery consult. Patient wound culture returned back which shows Staph aureus and Pseudomonas aeruginosa. Patient is started on cefepime and vancomycin. 04/15 continue current antibiotics, patient is afebrile, older records Pseudomonas hours and Pseudomonas aeruginosa Pending susceptibility add Flagyl to cover anaerobic infection, follow-up wound culture, procalcitonin deescalate 04/16: sepsis with Staph aureus bacteremia Likely resulting from worsening ost
[2024-04-20 17:13] LABS: Glucose Point of Care 149 mg/dl (65-105)
[2024-04-20] MEDS: levoFLOXacin 750 MG/D5W 150 ML 750 MG/150 ML BAG 100 MG IVPB (22:09)
[2024-04-20] MEDS: traZODone HCL 50 MG TABLET 150 MG PO (22:13)
[2024-04-20 22:21] LABS: Glucose Point of Care 149 mg/dl (65-105)
[2024-04-21] VITALS (9 sets, daily range): BP systolic 128–154; BP diastolic 55–78; PULSE 82–91; RESP 18–20; TEMP 36.5–37.2; O2SAT 97–99
[2024-04-21] MEDS: ceFAZolin 2 GM/D5W 50 ML 2 GM/50 ML BAG IVPB ×3 (06:35→21:06)
[2024-04-21 08:20] LABS: Glucose Point of Care 120 mg/dl (65-105)
[2024-04-21] MEDS: SODIUM CHLORIDE 0.9% IV 1,000 ML 75 ML IV CONT (09:44)
[2024-04-21] MEDS: EMPAGLIFLOZIN 25 MG TABLET PO (09:45)
[2024-04-21] MEDS: FIDAXOMICIN 200 MG TABLET PO ×2 (09:45→21:06)
[2024-04-21] MEDS: GABAPENTIN 300 MG CAPSULE PO ×3 (09:45→17:18)
[2024-04-21] MEDS: ENOXAPARIN 40 MG/0.4 ML SYRINGE SUB-Q (09:45)
[2024-04-21] MEDS: CYANOCOBALAMIN 1,000 MCG TABLET 1000 MCG PO (09:45)
[2024-04-21] MEDS: FERROUS SULFATE DRIED 142 MG TABCR PO (09:45)
[2024-04-21] MEDS: HYDROcodone/acetaminophen (*CRX) 5-325 MG TABLET 1 TAB PO ×2 (09:57→17:18)
--- NOTE | 2024-04-21 11:08 | PM.IMPN ---
Progress Note: A&P Assessment and Plan (1) Multiple falls: Code(s): R29.6 - Repeated falls Status: Acute (2) Weakness: Code(s): R53.1 - Weakness Status: Acute (3) Diarrhea: Code(s): R19.7 - Diarrhea, unspecified Status: Acute (4) Diabetic foot ulcer: Code(s): E11.621 - Type 2 diabetes mellitus with foot ulcer; L97.509 - Non-pressure chronic ulcer of other part of unspecified foot with unspecified severity Status: Acute Assessment and Plan: MRI left foot IMPRESSION: 1. First second fifth distal transmetatarsal osteotomies with osteomyelitis extending proximally in the remaining first-third and fifth metatarsals with large draining abscess extending across the first-third osteotomy margins and small abscess along the lateral posterior margin of the fifth metatarsal. 2. Prominent marrow edema and enhancement at both sides of the second and third tarsal metatarsal joints without loss of T1 fat signal suspicious for septic arthritis on the Lisfranc joint with associated and reactive marrow changes versus early osteomyelitis. 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 Cotton performed left foot transmetatarsal amputation with debridement of a diabetic foot ulcer on 03/08/2024 and excisional debridement the ulcer to muscle as well as excision of exostosis of the metatarsals on 03/30/2024. -5 weeks status post initial TMA complicated by postoperative plantar wound. Patient returned to the OR 1 week, 7 days ago for revision of the left TMA. - He then presented to office for follow-up postoperatively and underwent total contact cast application. He was set to follow up in an H wound clinic for total contact cast removal and re-application on Tuesday but failed to present to clinic due to feeling unwell and having diarrhea and weakness -04/12 : In the ED Total contact cast removed by the emergency room physician and ortho was consulted . Ortho reports incision well approximated of the left TMA as side from a small area in the middle of the incision which appears to be consistent with a stitch abscess and small amount of drainage from the area was sent for Gram stain (WBCs noted as well as many Gram-positive cocci in clusters) and culture wound culture grows Pseudomonas aeruginosa and MSSA MRI showed worsening osteomyeltitis for wound debridement vs further amputation continue current abx ortho following 04/16: sepsis with Staph aureus bacteremia Likely resulting from worsening osteomyelitis MRI left foot IMPRESSION: 1. First second fifth distal transmetatarsal osteotomies with osteomyelitis extending proximally in the remaining first-third and fifth metatarsals with large draining abscess extending across the first-third osteotomy margins and small abscess along the lateral posterior margin of the fifth metatarsal. 2. Prominent marrow edema and enhancement at both sides of the second and third tarsal metatarsal joints without loss of T1 fat signal suspicious for septic arthritis on the Lisfranc joint with associated and reactive marrow changes versus early osteomyelitis patient having persistent MSSA bacteremia follow repeat cultures Abx changed to Levaquin and Ancef MRI foot as above worsening osteomyelitis ECHO no significant valvular abnormalities Ortho considering debridement vs further
[2024-04-21 12:19] LABS: Glucose Point of Care 184 mg/dl (65-105)
[2024-04-21 18:07] LABS: Glucose Point of Care 121 mg/dl (65-105)
[2024-04-21] MEDS: levoFLOXacin 750 MG/D5W 150 ML 750 MG/150 ML BAG 100 MG IVPB (21:06)
[2024-04-21 21:13] LABS: Glucose Point of Care 172 mg/dl (65-105)
[2024-04-22] VITALS (10 sets, daily range): BP systolic 119–138; BP diastolic 63–73; PULSE 79–93; RESP 18–20; TEMP 37.2–37.5; O2SAT 95–99
[2024-04-22] MEDS: ceFAZolin 2 GM/D5W 50 ML 2 GM/50 ML BAG IVPB ×3 (05:05→21:20)
[2024-04-22 05:10] LABS: Basophils Absolute Auto 0.1 K/mm3 (0.0-0.1); Basophils Percent Auto 0.6 % (0.2-1.2); Eosinophils Absolute Auto 0.2 K/mm3 (0-0.3); Eosinophils Percent Auto 1.9 % (0-4.4); Hematocrit 33.8 % (42.0-52.0); Hemoglobin 11.1 g/dL (14.0-18.0); Immature Granulocyte Absolute 0.18 K/mm3 (0.00-0.031); Lymphocytes Percent Auto 13.5 % (18.3-44.2); Mean Corpuscular HGB Conc 32.8 g/dl (32-36); Mean Corpuscular Hemoglobin 27.8 pg (26-34); Mean Corpuscular Volume 84.7 fl (80-100); Mean Platelet Volume 10.1 fl (7.4-10.4); Monocytes Percent Auto 11.3 % (2.6-8.5); Neutrophils Absolute Auto 6.3 K/mm3 (1.3-6.7); Neutrophils Percent Auto 70.7 % (45.5-73.1); Platelet Count Result 281 k/mm3 (150-375); Red Blood Count 3.99 M/mm3 (4.6-6.20); Red Cell Distribution Width 14.9 % (11.5-14.5); White Blood Count 8.9 K/mm3 (4.5-10.0)
[2024-04-22 05:25] LABS: Alanine Aminotransferase 24 U/L (6-50); Albumin Level 2.5 g/dL (3.5-5.1); Alkaline Phosphatase 73 U/L (38-126); Anion Gap 8 mmol/L (4-12); Aspartate Amino Transferase 55 U/L (17-59); Bilirubin,Total 0.3 mg/dL (0.2-1.3); Blood Urea Nitrogen 20 mg/dL (9-20); Calcium 8.1 mg/dL (8.4-10.2); Carbon Dioxide 24 mmol/L (22-30); Chloride 98 mmol/L (98-107); Estimated CRCL calculation 61 ml/min; Estimated Glomerular Filt Rate 60; Glucose 132 mg/dL (65-110); Magnesium 1.9 mg/dL (1.6-2.3); Potassium 4.1 mmol/L (3.4-5.0); Sodium 130 mmol/L (137-145)
[2024-04-22] MEDS: HYDROcodone/acetaminophen (*CRX) 5-325 MG TABLET 1 TAB PO ×3 (06:48→21:13)
[2024-04-22 09:23] LABS: Glucose Point of Care 120 mg/dl (65-105)
[2024-04-22] MEDS: FIDAXOMICIN 200 MG TABLET PO ×2 (09:33→21:13)
[2024-04-22] MEDS: FERROUS SULFATE DRIED 142 MG TABCR PO (09:33)
[2024-04-22] MEDS: GABAPENTIN 300 MG CAPSULE PO ×3 (09:33→18:09)
[2024-04-22] MEDS: EMPAGLIFLOZIN 25 MG TABLET PO (09:34)
[2024-04-22] MEDS: ENOXAPARIN 40 MG/0.4 ML SYRINGE SUB-Q (09:34)
[2024-04-22] MEDS: CYANOCOBALAMIN 1,000 MCG TABLET 1000 MCG PO (09:34)
--- NOTE | 2024-04-22 11:32 | PCOTNOTE ---
Attempted to see pt for OT treatment. Pt declined to participate in therapy services due to being in too much pain and being too tired. Pt was educated on importance of participation for further strengthening and independence with daily tasks, however, continues to decline.
[2024-04-22] MEDS: SODIUM CHLORIDE 0.9% IV 1,000 ML 75 ML IV CONT ×2 (12:57→21:14)
[2024-04-22 13:21] LABS: Glucose Point of Care 161 mg/dl (65-105)
--- NOTE | 2024-04-22 13:56 | PM.IMPN ---
Progress Note: A&P Assessment and Plan (1) Multiple falls: Code(s): R29.6 - Repeated falls Status: Acute (2) Weakness: Code(s): R53.1 - Weakness Status: Acute (3) Diarrhea: Code(s): R19.7 - Diarrhea, unspecified Status: Acute (4) Diabetic foot ulcer: Code(s): E11.621 - Type 2 diabetes mellitus with foot ulcer; L97.509 - Non-pressure chronic ulcer of other part of unspecified foot with unspecified severity Status: Acute Assessment and Plan: MRI left foot IMPRESSION: 1. First second fifth distal transmetatarsal osteotomies with osteomyelitis extending proximally in the remaining first-third and fifth metatarsals with large draining abscess extending across the first-third osteotomy margins and small abscess along the lateral posterior margin of the fifth metatarsal. 2. Prominent marrow edema and enhancement at both sides of the second and third tarsal metatarsal joints without loss of T1 fat signal suspicious for septic arthritis on the Lisfranc joint with associated and reactive marrow changes versus early osteomyelitis. 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 Cotton performed left foot transmetatarsal amputation with debridement of a diabetic foot ulcer on 03/08/2024 and excisional debridement the ulcer to muscle as well as excision of exostosis of the metatarsals on 03/30/2024. -5 weeks status post initial TMA complicated by postoperative plantar wound. Patient returned to the OR 1 week, 7 days ago for revision of the left TMA. - He then presented to office for follow-up postoperatively and underwent total contact cast application. He was set to follow up in an H wound clinic for total contact cast removal and re-application on Tuesday but failed to present to clinic due to feeling unwell and having diarrhea and weakness -04/12 : In the ED Total contact cast removed by the emergency room physician and ortho was consulted . Ortho reports incision well approximated of the left TMA as side from a small area in the middle of the incision which appears to be consistent with a stitch abscess and small amount of drainage from the area was sent for Gram stain (WBCs noted as well as many Gram-positive cocci in clusters) and culture wound culture grows Pseudomonas aeruginosa and MSSA MRI showed worsening osteomyeltitis for wound debridement vs further amputation continue current abx ortho following 04/16: sepsis with Staph aureus bacteremia Likely resulting from worsening osteomyelitis MRI left foot IMPRESSION: 1. First second fifth distal transmetatarsal osteotomies with osteomyelitis extending proximally in the remaining first-third and fifth metatarsals with large draining abscess extending across the first-third osteotomy margins and small abscess along the lateral posterior margin of the fifth metatarsal. 2. Prominent marrow edema and enhancement at both sides of the second and third tarsal metatarsal joints without loss of T1 fat signal suspicious for septic arthritis on the Lisfranc joint with associated and reactive marrow changes versus early osteomyelitis patient having persistent MSSA bacteremia repeat cultures still positve Abx changed to Levaquin and Ancef MRI foot as above worsening osteomyelitis ECHO no significant valvular abnormalities Ortho considering debridement vs f
[2024-04-22 17:53] LABS: Glucose Point of Care 154 mg/dl (65-105)
[2024-04-22 21:05] LABS: Glucose Point of Care 130 mg/dl (65-105)
[2024-04-22] MEDS: levoFLOXacin 750 MG/D5W 150 ML 750 MG/150 ML BAG 100 MG IVPB (21:13)
[2024-04-22] MEDS: traZODone HCL 50 MG TABLET 150 MG PO (21:13)
[2024-04-23] VITALS (9 sets, daily range): BP systolic 117–153; BP diastolic 64–76; PULSE 78–89; RESP 18–20; TEMP 36.9–37.1; O2SAT 98–100
[2024-04-23] MEDS: ceFAZolin 2 GM/D5W 50 ML 2 GM/50 ML BAG IVPB ×3 (04:47→23:22)
[2024-04-23] MEDS: HYDROcodone/acetaminophen (*CRX) 5-325 MG TABLET 1 TAB PO ×3 (04:47→21:22)
[2024-04-23 08:10] LABS: Alanine Aminotransferase 20 U/L (6-50); Albumin Level 2.6 g/dL (3.5-5.1); Alkaline Phosphatase 64 U/L (38-126); Anion Gap 8 mmol/L (4-12); Aspartate Amino Transferase 46 U/L (17-59); Bilirubin,Total 0.2 mg/dL (0.2-1.3); Blood Urea Nitrogen 21 mg/dL (9-20); Calcium 8.2 mg/dL (8.4-10.2); Carbon Dioxide 25 mmol/L (22-30); Chloride 97 mmol/L (98-107); Estimated CRCL calculation 54 ml/min; Estimated Glomerular Filt Rate 60; Glucose 146 mg/dL (65-110); Magnesium 2.1 mg/dL (1.6-2.3); Potassium 4.4 mmol/L (3.4-5.0); Sodium 130 mmol/L (137-145)
[2024-04-23 08:41] LABS: Glucose Point of Care 145 mg/dl (65-105)
[2024-04-23] MEDS: FERROUS SULFATE DRIED 142 MG TABCR PO (09:36)
[2024-04-23] MEDS: CYANOCOBALAMIN 1,000 MCG TABLET 1000 MCG PO (09:36)
[2024-04-23] MEDS: EMPAGLIFLOZIN 25 MG TABLET PO (09:36)
[2024-04-23] MEDS: FIDAXOMICIN 200 MG TABLET PO ×2 (09:36→21:21)
[2024-04-23] MEDS: GABAPENTIN 300 MG CAPSULE PO ×2 (09:36→12:55)
--- NOTE | 2024-04-23 09:47 | PM.IMPN ---
Progress Note: A&P Assessment and Plan (1) Multiple falls: Code(s): R29.6 - Repeated falls Status: Acute (2) Weakness: Code(s): R53.1 - Weakness Status: Acute (3) Diarrhea: Code(s): R19.7 - Diarrhea, unspecified Status: Acute (4) Diabetic foot ulcer: Code(s): E11.621 - Type 2 diabetes mellitus with foot ulcer; L97.509 - Non-pressure chronic ulcer of other part of unspecified foot with unspecified severity Status: Acute Assessment and Plan: MRI left foot IMPRESSION: 1. First second fifth distal transmetatarsal osteotomies with osteomyelitis extending proximally in the remaining first-third and fifth metatarsals with large draining abscess extending across the first-third osteotomy margins and small abscess along the lateral posterior margin of the fifth metatarsal. 2. Prominent marrow edema and enhancement at both sides of the second and third tarsal metatarsal joints without loss of T1 fat signal suspicious for septic arthritis on the Lisfranc joint with associated and reactive marrow changes versus early osteomyelitis. 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 Cotton performed left foot transmetatarsal amputation with debridement of a diabetic foot ulcer on 03/08/2024 and excisional debridement the ulcer to muscle as well as excision of exostosis of the metatarsals on 03/30/2024. -5 weeks status post initial TMA complicated by postoperative plantar wound. Patient returned to the OR 1 week, 7 days ago for revision of the left TMA. - He then presented to office for follow-up postoperatively and underwent total contact cast application. He was set to follow up in an H wound clinic for total contact cast removal and re-application on Tuesday but failed to present to clinic due to feeling unwell and having diarrhea and weakness -04/12 : In the ED Total contact cast removed by the emergency room physician and ortho was consulted . Ortho reports incision well approximated of the left TMA as side from a small area in the middle of the incision which appears to be consistent with a stitch abscess and small amount of drainage from the area was sent for Gram stain (WBCs noted as well as many Gram-positive cocci in clusters) and culture wound culture grows Pseudomonas aeruginosa and MSSA MRI showed worsening osteomyeltitis Awaiting Ortho's plan for wound debridement vs further amputation continue Ancef and Levaquin No more blood cultures until source control is executed, then if bacteremia is persistent afterwards, will order RITESH (although no murmurs on auscultation) ortho following 04/16: sepsis with Staph aureus bacteremia Likely resulting from worsening osteomyelitis MRI left foot IMPRESSION: 1. First second fifth distal transmetatarsal osteotomies with osteomyelitis extending proximally in the remaining first-third and fifth metatarsals with large draining abscess extending across the first-third osteotomy margins and small abscess along the lateral posterior margin of the fifth metatarsal. 2. Prominent marrow edema and enhancement at both sides of the second and third tarsal metatarsal joints without loss of T1 fat signal suspicious for septic arthritis on the Lisfranc joint with associated and reactive marrow changes versus early osteomyelitis patient having persistent MSSA bacteremia chris
--- NOTE | 2024-04-23 10:57 | PC.NURSE ---
RN spoke with Infectious Disease Nurse Rhea and patient is okay to come off of isolation.
--- NOTE | 2024-04-23 11:05 | PCOTNOTE ---
Attempted to see Patient this A.M. Patient refused all activity. Patient stated, No way, I'm freezing and in severe pain .
[2024-04-23 12:02] LABS: Glucose Point of Care 168 mg/dl (65-105)
--- NOTE | 2024-04-23 12:06 | PCPTNOTE ---
Patient refused PT stating he is in pain and starting to refuse everything. Patient states his foot is not getting better. Patient educated on the importance of participating in PT to improve strength and mobility. Patient continued to refuse.
--- NOTE | 2024-04-23 13:16 | PM.PNORT ---
Progress Note: A&P Assessment and Plan (1) Ulcer of left foot due to type 2 diabetes mellitus: Code(s): E11.621 - Type 2 diabetes mellitus with foot ulcer; L97.529 - Non-pressure chronic ulcer of other part of left foot with unspecified severity Status: Acute Assessment and Plan: Dressing change left foot. Small area of central wound dehiscence on the dorsum showing improvement. Plantar ulcer unchanged but 100% red/pink wound bed. No purulence, no malodor. Previous left foot MRI reveals first, second, fifth distal transmetatarsal osteotomies with osteomyelitis extending proximally in the remaining first-third and fifth metatarsals with a draining abscess extending across the first-third osteotomy margins and small abscess along the lateral posterior margin of the fifth metatarsal. Patient currently responding well to IV antibiotics. Left foot/wound without purulence or malodor. No erythema. Drainage with dressing change serosanguineous, minimal. Patient improving clinically as well with improvement in WBC, afebrile since 04/19. Most recent blood cultures are from 04/19 and with 1/2 positive for staph and the other with NGTD preliminarily. Continue daily dressing changes and IV antibiotics for bacteremia, pneumonia and foot wound. ABIs reviewed. Left ROSIE low. New radiographs of the left foot obtained today. New radiographs today reveal sclerotic changes in the residual portion of the metatarsal bones and destructive changes in the distal end to the bones. Stip gauze packing in place for radiographs. Changes to current plan of care pending evaluation by Dr. Cotton. Continue IV antibiotics. Pain control for shoulder/neck. (2) S/P transmetatarsal amputation of foot: Qualifiers: Laterality: left Qualified Code(s): Z89.432 - Acquired absence of left foot Code(s): Z89.439 - Acquired absence of unspecified foot Status: Acute (3) Cervical muscle strain: Qualifiers: Encounter type: subsequent encounter Qualified Code(s): S16.1XXD - Strain of muscle, fascia and tendon at neck level, subsequent encounter Code(s): S16.1XXA - Strain of muscle, fascia and tendon at neck level, initial encounter Status: Acute Assessment and Plan: MRI cervical spine shows acute cervical strain without fracture. Continue with conservative care. (4) Lumbar stenosis: Qualifiers: Neurogenic claudication status: with neurogenic claudication Qualified Code(s): M48.062 - Spinal stenosis, lumbar region with neurogenic claudication Code(s): M48.061 - Spinal stenosis, lumbar region without neurogenic claudication Status: Acute Assessment and Plan: Complains of neck and low back pain today as well as right shoulder. History of several falls and strain of the neck and low back. Cervical spine MRI negative for fracture. Okay to mobilize with therapy. Discussed with patient. Agree with conservative treatment. Subjective Subjective Date/Time Seen: 04/23/24 13:16 Post Op day: 24 Principal diagnosis: left diabetic foot ulcer Interval history: Patient alert and oriented, laying in bed. Improved mentation today. Continues to complain of right shoulder pain, left shoulder pain and neck pain. Denies left foot pain. Review of Systems Review of Systems: All systems reviewed & are unremarkable except as noted in HPI and below Exam Const: General: comfortable; No acute distress Resp: Effort & Inspection: normal respiratory effort and no audible wheezes Extrem: Right lower extremity: lower leg ( Negative Homans sign), ankle Details: normal ROM ( dorsiflexion and plantar flexion intact) and foot Details: vascular exam Details: dorsalis pedis pulse present and normal capillary refill, tendon exam Details: active flexion normal and active extension normal and motor-sensory exam Details: light-touch normal Location: in all toes; no edema Other: LT foot Dressing removed.
--- NOTE | 2024-04-23 15:15 | PCOTNOTE ---
Attempted again this P.M. Patient still refusing to participate in any activities and stated, 'Im done, just leave me alone .
--- NOTE | 2024-04-23 15:43 | PC.NURSE ---
Patient requesting his gabapentin dose be changed to his home medication dose. Medication reconciliation states patient takes 300mg TID. However if you look at patient's gabapentin that was filled January 2024 patients takes 600mg Q8HR. RN spoke with hospitalist Daniel via telepehone in regards to this patient request.
[2024-04-23 17:22] LABS: Glucose Point of Care 166 mg/dl (65-105)
[2024-04-23] MEDS: SODIUM CHLORIDE 0.9% IV 1,000 ML 75 ML IV CONT (17:57)
[2024-04-23 21:16] LABS: Glucose Point of Care 204 mg/dl (65-105)
[2024-04-23] MEDS: traZODone HCL 50 MG TABLET 150 MG PO (21:21)
[2024-04-23] MEDS: levoFLOXacin 750 MG TABLET PO (21:21)
[2024-04-23] MEDS: GABAPENTIN 300 MG CAPSULE 600 MG PO (21:22)
[2024-04-24] VITALS (10 sets, daily range): BP systolic 130–137; BP diastolic 63–69; PULSE 73–101; RESP 16–20; TEMP 36.6–37.3; O2SAT 99–100
[2024-04-24] MEDS: SODIUM CHLORIDE 0.9% IV 1,000 ML 75 ML IV CONT ×2 (05:50→17:32)
[2024-04-24] MEDS: ceFAZolin 2 GM/D5W 50 ML 2 GM/50 ML BAG IVPB ×3 (05:51→20:48)
[2024-04-24] MEDS: HYDROcodone/acetaminophen (*CRX) 5-325 MG TABLET 1 TAB PO ×3 (05:51→20:43)
[2024-04-24 05:52] LABS: Basophils Absolute Auto 0.1 K/mm3 (0.0-0.1); Basophils Percent Auto 0.8 % (0.2-1.2); Eosinophils Absolute Auto 0.2 K/mm3 (0-0.3); Hematocrit 31.7 % (42.0-52.0); Hemoglobin 10.2 g/dL (14.0-18.0); Immature Granulocyte Absolute 0.07 K/mm3 (0.00-0.031); Immature Granulocyte Percent A 0.9 % (0-0.5); Lymphocytes Absolute Auto 1.07 K/mm3 (0.9-3.2); Lymphocytes Percent Auto 13.4 % (18.3-44.2); Mean Corpuscular HGB Conc 32.2 g/dl (32-36); Mean Corpuscular Hemoglobin 27.6 pg (26-34); Mean Corpuscular Volume 85.7 fl (80-100); Mean Platelet Volume 10.1 fl (7.4-10.4); Monocytes Absolute Auto 0.8 K/mm3 (0.1-0.6); Monocytes Percent Auto 10.3 % (2.6-8.5); Neutrophils Absolute Auto 5.7 K/mm3 (1.3-6.7); Neutrophils Percent Auto 71.6 % (45.5-73.1); Platelet Count Result 302 k/mm3 (150-375)
[2024-04-24] MEDS: GABAPENTIN 300 MG CAPSULE 600 MG PO ×3 (05:54→20:43)
[2024-04-24 06:05] LABS: Alanine Aminotransferase 20 U/L (6-50); Albumin Level 2.6 g/dL (3.5-5.1); Alkaline Phosphatase 62 U/L (38-126); Anion Gap 6 mmol/L (4-12); Aspartate Amino Transferase 49 U/L (17-59); Bilirubin,Total 0.3 mg/dL (0.2-1.3); Blood Urea Nitrogen 21 mg/dL (9-20); Calcium 8.3 mg/dL (8.4-10.2); Carbon Dioxide 27 mmol/L (22-30); Chloride 99 mmol/L (98-107); Estimated CRCL calculation 54 ml/min; Estimated Glomerular Filt Rate 60; Glucose 146 mg/dL (65-110); Magnesium 2.1 mg/dL (1.6-2.3); Potassium 4.5 mmol/L (3.4-5.0); Sodium 132 mmol/L (137-145)
[2024-04-24 08:46] LABS: Glucose Point of Care 146 mg/dl (65-105)
[2024-04-24] MEDS: FERROUS SULFATE DRIED 142 MG TABCR PO (09:14)
[2024-04-24] MEDS: FIDAXOMICIN 200 MG TABLET PO ×2 (09:14→20:43)
[2024-04-24] MEDS: CYANOCOBALAMIN 1,000 MCG TABLET 1000 MCG PO (09:14)
[2024-04-24] MEDS: ENOXAPARIN 40 MG/0.4 ML SYRINGE SUB-Q (09:14)
[2024-04-24] MEDS: EMPAGLIFLOZIN 25 MG TABLET PO (09:14)
--- NOTE | 2024-04-24 11:16 | PCNFU ---
Nutrition Follow-Up Complete: Potential for inadequate oral intake related to loss of appetite, increased protein needs from wounds as evidenced by recent weight loss, report of decreased appetite Goal: Adequate PO intake at least 75% meals and supplements Patient is progressing towards goal. We will continue current goal. Pt current nutrition is DBCC with Amadou BID and Glucerna shake BID. Last recorded weight is 86.4 kg, down from 96.7 kg on admit. Bowel Motility:+BM reported 04/22 Labs Reviewed:Glu 146, BUN 21, NA 132, Alb 2.6,Hct 31.7,Hgb 10.2 Meds Noted:NovoLog, Lovenox, Jardiance. Skin: WNL Additional Notes: Patient remains on a DBCC diet with Glucerna shakes 220 kcal and 10 gm protein and Amadou BID 90 kcal/2.5 gm protein/7 gm glutamine/7 gm arginine. Intake today about 75% of breakfast tray. Intakes continue to improve. Agree with diet orders. Monitoring intakes, weights, labs, supplement tolerance, wounds, plan of care Follow up in 5 days
[2024-04-24 11:45] LABS: Glucose Point of Care 218 mg/dl (65-105)
[2024-04-24] MEDS: INSULIN ASPART (*BKC) 100 UNITS/ML SUB-Q (12:31)
--- NOTE | 2024-04-24 13:17 | PM.PNORT ---
Progress Note: A&P Assessment and Plan (1) Diabetic foot ulcer: Qualifiers: Diabetic foot ulcer location: other Diabetes mellitus type: type 2 Laterality: left Non-pressure ulcer stage: with other severity Qualified Code(s): E11.621 - Type 2 diabetes mellitus with foot ulcer; L97.528 - Non-pressure chronic ulcer of other part of left foot with other specified severity Code(s): E11.621 - Type 2 diabetes mellitus with foot ulcer; L97.509 - Non-pressure chronic ulcer of other part of unspecified foot with unspecified severity Status: Acute Assessment and Plan: 3.5 weeks status post revision left foot amputation with excision of the distal 2nd and 3rd metatarsal. Previous transmetatarsal amputation for osteomyelitis. At this time, no signs of infection of the left foot. Small incisional opening which continues to show improvement which communicates with the plantar ulcer which is open with minimal serous drainage. No purulent drainage able to be expressed. No erythema or tracking from the foot. MRI reviewed which shows postsurgical changes of the forefoot without evidence of any new infection. Repeat plain radiographs of the foot yesterday showed no interval changes compared to previous radiographs 10 days ago. No evidence on plain radiographs of active infection. Most recent blood culture 5 days ago with 1 tube negative and 1 tube showing contaminant. repeat blood cultures today. Plan for left foot is to continue daily dressing changes with silver rope packing and offloading. Continue IV antibiotics. no indication or plans for any further surgery, debridement, or amputation. Of more concern is the patient's overall systemic problems with systemic weakness, upper and lower back pain and tremors. Unsure of etiology. We will continue to follow. (2) Bacteremia: Code(s): R78.81 - Bacteremia Status: Acute Assessment and Plan: Repeat blood cultures drawn today. (3) S/P transmetatarsal amputation of foot: Qualifiers: Laterality: left Qualified Code(s): Z89.432 - Acquired absence of left foot Code(s): Z89.439 - Acquired absence of unspecified foot Status: Acute Subjective Subjective Date/Time Seen: 04/24/24 13:17 Post Op day: 25 Principal diagnosis: left diabetic foot ulcer Interval history: Patient alert and oriented, Up in chair. Complains of severe neck, upper back, bilateral posterior shoulder pain. Complains of severe lower back pain. Noted weakness. Denies left foot pain. Exam Const: General: comfortable; No acute distress Resp: Effort & Inspection: normal respiratory effort and no audible wheezes Extrem: Right lower extremity: lower leg ( Negative Homans sign), ankle Details: normal ROM ( dorsiflexion and plantar flexion intact) and foot Details: vascular exam Details: dorsalis pedis pulse present and normal capillary refill, tendon exam Details: active flexion normal and active extension normal and motor-sensory exam Details: light-touch normal Location: in all toes; no edema Other: LT foot dressing removed. Transmetatarsal amputation incision well healed except for the central 0.5 cm with opening, improving. 1 cm plantar ulcer with Gauze packing in place. Minimal serous drainage. No purulence. No erythema. Mild swelling. Objective Data Vital Signs Vital Signs: Vital Signs - 24 hr 04/23/24 14:00 04/23/24 16:00 04/23/24 20:00 Temperature 98.8 F 98.6 F Pulse Rate 86 82 86 Respiratory Rate 18 18 Blood Pressure 153/75 H 117/64 Pulse Oximetry 100 99 Oxygen Delivery 04/23/24 22:00 04/23/24 20:00 04/23/24 20:00 Temperature 98.6 F Pulse Rate 89 87 Respiratory Rate 20 Blood Pressure 131/76 Pulse Oximetry 98 Oxygen Delivery Room Air 04/24/24 06:00 04/24/24 00:00 04/24/24 04:00 Temperature 97.9 F Pulse Rate 82 101 H 73 Respiratory Rate 20 Blood Pressure 137/69
--- NOTE | 2024-04-24 13:23 | PCPTNOTE ---
Patient refused treatment this session stating he has been sitting up in the chair most of the day and just got back to bed. Patient refused LE exercise interventions stating he is feeling shaky and can not do them. PT will continue to follow per plan of care.
--- NOTE | 2024-04-24 15:52 | PM.IMPN ---
Progress Note: A&P Assessment and Plan (1) Multiple falls: Code(s): R29.6 - Repeated falls Status: Acute (2) Weakness: Code(s): R53.1 - Weakness Status: Acute (3) Diarrhea: Code(s): R19.7 - Diarrhea, unspecified Status: Acute (4) Diabetic foot ulcer: Qualifiers: Diabetes mellitus type: type 2 Diabetic foot ulcer location: other Laterality: left Non-pressure ulcer stage: with other severity Qualified Code(s): E11.621 - Type 2 diabetes mellitus with foot ulcer; L97.528 - Non-pressure chronic ulcer of other part of left foot with other specified severity Code(s): E11.621 - Type 2 diabetes mellitus with foot ulcer; L97.509 - Non-pressure chronic ulcer of other part of unspecified foot with unspecified severity Status: Acute Assessment and Plan: MRI left foot IMPRESSION: 1. First second fifth distal transmetatarsal osteotomies with osteomyelitis extending proximally in the remaining first-third and fifth metatarsals with large draining abscess extending across the first-third osteotomy margins and small abscess along the lateral posterior margin of the fifth metatarsal. 2. Prominent marrow edema and enhancement at both sides of the second and third tarsal metatarsal joints without loss of T1 fat signal suspicious for septic arthritis on the Lisfranc joint with associated and reactive marrow changes versus early osteomyelitis. (5) Obstructive sleep apnea: Code(s): G47.33 - Obstructive sleep apnea (adult) (pediatric) Status: Acute (6) Type 2 diabetes mellitus: Qualifiers: Diabetes mellitus complication detail: with polyneuropathy Diabetes mellitus complication status: with neurologic complications Diabetes mellitus shelter insulin use: without long term care social worker use Qualified Code(s): E11.42 - Type 2 diabetes mellitus with diabetic polyneuropathy Code(s): E11.9 - Type 2 diabetes mellitus without complications Status: Acute Plan Ulcer of left foot due to type 2 diabetes mellitus #S/P transmetatarsal amputation of foot - Dr. Cotton performed left foot transmetatarsal amputation with debridement of a diabetic foot ulcer on 03/08/2024 and excisional debridement the ulcer to muscle as well as excision of exostosis of the metatarsals on 03/30/2024. -5 weeks status post initial TMA complicated by postoperative plantar wound. Patient returned to the OR 1 week, 7 days ago for revision of the left TMA. - He then presented to office for follow-up postoperatively and underwent total contact cast application. He was set to follow up in an H wound clinic for total contact cast removal and re-application on Tuesday but failed to present to clinic due to feeling unwell and having diarrhea and weakness -04/12 : In the ED Total contact cast removed by the emergency room physician and ortho was consulted . Ortho reports incision well approximated of the left TMA as side from a small area in the middle of the incision which appears to be consistent with a stitch abscess and small amount of drainage from the area was sent for Gram stain (WBCs noted as well as many Gram-positive cocci in clusters) and culture wound culture grows Pseudomonas aeruginosa and MSSA MRI showed worsening osteomyeltitis Awaiting Ortho's plan for wound debridement vs further amputation continue Ancef and Levaquin No more blood cultures until source control is executed, then if bacteremia is persistent afterwards, will order RITESH (although no murmurs on auscultation) ortho following 04/16: sepsis with Staph aureus bacteremia Likely resulting from worsening osteomyelitis MRI left foot
[2024-04-24 16:42] LABS: Glucose Point of Care 175 mg/dl (65-105)
[2024-04-24] MEDS: levoFLOXacin 750 MG TABLET PO (20:43)
[2024-04-24] MEDS: traZODone HCL 50 MG TABLET 150 MG PO (20:43)
[2024-04-24 21:54] LABS: Glucose Point of Care 182 mg/dl (65-105)
[2024-04-25] VITALS (8 sets, daily range): BP systolic 118–128; BP diastolic 46–69; PULSE 75–99; RESP 16–18; TEMP 36.2–36.7; O2SAT 91–100
[2024-04-25] MEDS: HYDROcodone/acetaminophen (*CRX) 5-325 MG TABLET 1 TAB PO (02:28)
[2024-04-25] MEDS: ceFAZolin 2 GM/D5W 50 ML 2 GM/50 ML BAG IVPB ×2 (05:24→17:52)
[2024-04-25] MEDS: GABAPENTIN 300 MG CAPSULE 600 MG PO ×3 (05:24→19:58)
[2024-04-25 05:33] LABS: Hematocrit 31.9 % (42.0-52.0); Hemoglobin 9.9 g/dL (14.0-18.0); Mean Corpuscular Hemoglobin 27.1 pg (26-34); Mean Corpuscular Volume 87.4 fl (80-100); Mean Platelet Volume 10.2 fl (7.4-10.4); Platelet Count Result 302 k/mm3 (150-375); Red Blood Count 3.65 M/mm3 (4.6-6.20); Red Cell Distribution Width 14.9 % (11.5-14.5); White Blood Count 9.1 K/mm3 (4.5-10.0)
[2024-04-25 05:48] LABS: Alanine Aminotransferase 14 U/L (6-50); Albumin Level 2.7 g/dL (3.5-5.1); Alkaline Phosphatase 69 U/L (38-126); Anion Gap 6 mmol/L (4-12); Aspartate Amino Transferase 40 U/L (17-59); Bilirubin,Total 0.2 mg/dL (0.2-1.3); Blood Urea Nitrogen 23 mg/dL (9-20); Calcium 8.5 mg/dL (8.4-10.2); Carbon Dioxide 27 mmol/L (22-30); Chloride 99 mmol/L (98-107); Estimated CRCL calculation 47 ml/min; Estimated Glomerular Filt Rate 50; Glucose 157 mg/dL (65-110); Potassium 4.6 mmol/L (3.4-5.0); Sodium 132 mmol/L (137-145)
[2024-04-25] MEDS: FERROUS SULFATE DRIED 142 MG TABCR PO (08:58)
[2024-04-25] MEDS: EMPAGLIFLOZIN 25 MG TABLET PO (08:58)
[2024-04-25] MEDS: CYANOCOBALAMIN 1,000 MCG TABLET 1000 MCG PO (08:58)
[2024-04-25 09:09] LABS: Glucose Point of Care 154 mg/dl (65-105)
[2024-04-25] MEDS: ENOXAPARIN 40 MG/0.4 ML SYRINGE SUB-Q (09:16)
[2024-04-25] MEDS: HYDROcodone/acetaminophen (*CRX) 7.5-325 MG TABLET 1 TAB PO ×2 (09:27→19:59)
--- NOTE | 2024-04-25 11:28 | PCOTNOTE ---
Patient refused treatment this session due to being in to much pain. i feel like i have a knife in my back . RN is aware.
[2024-04-25 12:21] LABS: Glucose Point of Care 231 mg/dl (65-105)
[2024-04-25] MEDS: INSULIN ASPART (*BKC) 100 UNITS/ML SUB-Q (13:02)
[2024-04-25] MEDS: FIDAXOMICIN 200 MG TABLET PO ×2 (13:07→19:58)
[2024-04-25] MEDS: SODIUM CHLORIDE 0.9% IV 1,000 ML 75 ML IV CONT (13:11)
--- NOTE | 2024-04-25 15:28 | PM.PNORT ---
Progress Note: A&P Assessment and Plan (1) Diabetic foot ulcer: Qualifiers: Diabetic foot ulcer location: other Diabetes mellitus type: type 2 Laterality: left Non-pressure ulcer stage: with other severity Qualified Code(s): E11.621 - Type 2 diabetes mellitus with foot ulcer; L97.528 - Non-pressure chronic ulcer of other part of left foot with other specified severity Code(s): E11.621 - Type 2 diabetes mellitus with foot ulcer; L97.509 - Non-pressure chronic ulcer of other part of unspecified foot with unspecified severity Status: Acute Assessment and Plan: 3.5 weeks status post revision left foot amputation with excision of the distal 2nd and 3rd metatarsal. Previous transmetatarsal amputation for osteomyelitis. At this time, no signs of infection of the left foot. Small incisional opening which continues to show improvement which communicates with the plantar ulcer which is open with minimal serous drainage. No purulent drainage able to be expressed. No erythema or tracking from the foot. Most recent blood culture 6 days ago with 1 tube negative and 1 tube showing contaminant. repeat blood cultures yesterday negative to date. Plan for left foot is to continue daily dressing changes with silver rope packing and offloading. Continue IV antibiotics. No indication or plans for any further surgery, debridement, or amputation. Of more concern is the patient's overall systemic problems with systemic weakness, upper and lower back pain and tremors. Unsure of etiology. patient feels that his neck shoulder and low back pain is what is most limiting. He does not feel like he is getting relief from the hydrocodone. Discussed upping his pain medication regimen to IV Dilaudid q.3 hours p.r.n.. We will see if he improves with better pain control. Also ibuprofen contraindicated given his renal status. We're going to switch that to Celebrex. (2) Bacteremia: Code(s): R78.81 - Bacteremia Status: Acute Assessment and Plan: Repeat blood cultures drawn Yesterday. (3) S/P transmetatarsal amputation of foot: Qualifiers: Laterality: left Qualified Code(s): Z89.432 - Acquired absence of left foot Code(s): Z89.439 - Acquired absence of unspecified foot Status: Acute Subjective Subjective Date/Time Seen: 04/25/24 15:28 Post Op day: 26 Principal diagnosis: left diabetic foot ulcer Interval history: Patient more alert and oriented, Up in chair. Complains of severe neck, upper back, bilateral posterior shoulder pain. Complains of severe lower back pain. Noted weakness. Denies left foot pain. Exam Const: General: cooperative, alert, ill appearing, tired appearing and uncomfortable; No acute distress Nutritional Appearance: average body habitus Orientation/consciousness: oriented to person, oriented to place and oriented to time HENMT: Head: normal to inspection Ears: hearing grossly normal bilaterally Eyes: General: appearance normal, both eyes and all related structures Resp: Effort & Inspection: normal respiratory effort and no audible wheezes Neuro: General: moves all extremities, Normal light touch and pain sensation and CN's II-XI intact bilaterally Speech: normal speech Gait exam (Neuro): Unable to assess gait Coordination: [id number] test normal Extrem: Right lower extremity: lower leg ( Negative Homans sign), ankle Details: normal ROM ( dorsiflexion and plantar flexion intact) and foot Details: vascular exam Details: dorsalis pedis pulse present and normal capillary refill, tendon exam Details: active flexion normal and active extension normal and motor-sensory exam Details: light-touch normal Location: in all toes; no edema Other: LT foot dressing removed. Transmetatarsal amputation incision well healed except for the central 0.5 cm with opening, improving. 1 cm plantar ulcer with Gauze packing in place. Minimal serous drai
--- NOTE | 2024-04-25 15:45 | PM.IMPN ---
Progress Note: A&P Assessment and Plan (1) Multiple falls: Code(s): R29.6 - Repeated falls Status: Acute (2) Weakness: Code(s): R53.1 - Weakness Status: Acute (3) Diarrhea: Code(s): R19.7 - Diarrhea, unspecified Status: Acute (4) Diabetic foot ulcer: Qualifiers: Diabetic foot ulcer location: other Diabetes mellitus type: type 2 Laterality: left Non-pressure ulcer stage: with other severity Qualified Code(s): E11.621 - Type 2 diabetes mellitus with foot ulcer; L97.528 - Non-pressure chronic ulcer of other part of left foot with other specified severity Code(s): E11.621 - Type 2 diabetes mellitus with foot ulcer; L97.509 - Non-pressure chronic ulcer of other part of unspecified foot with unspecified severity Status: Acute Assessment and Plan: MRI left foot IMPRESSION: 1. First second fifth distal transmetatarsal osteotomies with osteomyelitis extending proximally in the remaining first-third and fifth metatarsals with large draining abscess extending across the first-third osteotomy margins and small abscess along the lateral posterior margin of the fifth metatarsal. 2. Prominent marrow edema and enhancement at both sides of the second and third tarsal metatarsal joints without loss of T1 fat signal suspicious for septic arthritis on the Lisfranc joint with associated and reactive marrow changes versus early osteomyelitis. (5) Obstructive sleep apnea: Code(s): G47.33 - Obstructive sleep apnea (adult) (pediatric) Status: Acute (6) Type 2 diabetes mellitus: Qualifiers: Diabetes mellitus superintendent marine oil terminal insulin use: without chcf use Diabetes mellitus complication status: with neurologic complications Diabetes mellitus complication detail: with polyneuropathy Qualified Code(s): E11.42 - Type 2 diabetes mellitus with diabetic polyneuropathy Code(s): E11.9 - Type 2 diabetes mellitus without complications Status: Acute Plan Ulcer of left foot due to type 2 diabetes mellitus #S/P transmetatarsal amputation of foot MRI showed worsening osteomyeltitis Patient had a positive MSSA blood culture on 04/19. 04/25/2024 we ordered RITESH to rule out endocarditis. The repeat preliminary blood culture results taken on 04/24 shows no growth but we will wait until the final results. Patient will be likely discharged on 6 weeks of antibiotics after that RITESH is performed. Patient needs to go to a rehab and can perform another MRI in 6 weeks and follow-up with the ortho. - Dr. Cotton performed left foot transmetatarsal amputation with debridement of a diabetic foot ulcer on 03/08/2024 and excisional debridement the ulcer to muscle as well as excision of exostosis of the metatarsals on 03/30/2024. -5 weeks status post initial TMA complicated by postoperative plantar wound. Patient returned to the OR 1 week, 7 days ago for revision of the left TMA. - He then presented to office for follow-up postoperatively and underwent total contact cast application. He was set to follow up in an H wound clinic for total contact cast removal and re-application on Tuesday but failed to present to clinic due to feeling unwell and having diarrhea and weakness -04/12 : In the ED Total contact cast removed by the emergency room physician and ortho was consulted . Ortho reports incision well approximated of the left TMA as side from a small area in the middle of the incision which appears to be consistent with a stitch abscess and small amount of drainage from the area was sent for Gram stain (WBCs noted as well as many Gram-positive cocci in clusters) and culture 04/16: sepsis with Staph aureus bacteremia Likely resulting from worsening osteomyelitis MRI left foot
[2024-04-25 17:29] LABS: Glucose Point of Care 192 mg/dl (65-105)
[2024-04-25] MEDS: HYDROmorphone HCL INJ (*CRX) 1 MG/ML SYR IV PUSH ×2 (17:51→22:04)
[2024-04-25] MEDS: traZODone HCL 50 MG TABLET 150 MG PO (19:58)
--- NOTE | 2024-04-25 21:44 | PC.NURSE ---
Pt called out at about 1999 for pain medication. I pulled his Exline like he had been taking. When I brought it in he informed me he gets IV dilaudid now and it was to be given every 3hrs and it had been 3hrs. I asked why the change since Jacoby had been working and he usually goes to sleep w it. He said yes it was working but he liked how the Dilaudid felt and that he is to get it every 3hrs.
[2024-04-25 21:52] LABS: Glucose Point of Care 200 mg/dl (65-105)
[2024-04-26] VITALS (9 sets, daily range): BP systolic 110–185; BP diastolic 44–75; PULSE 72–98; RESP 18–20; TEMP 36.1–36.8; O2SAT 79–100
[2024-04-26] MEDS: ceFAZolin 2 GM/D5W 50 ML 2 GM/50 ML BAG IVPB ×2 (05:37→17:19)
[2024-04-26] MEDS: GABAPENTIN 300 MG CAPSULE 600 MG PO ×3 (05:37→21:32)
[2024-04-26 05:46] LABS: Hematocrit 29.6 % (42.0-52.0); Hemoglobin 9.1 g/dL (14.0-18.0); Mean Corpuscular HGB Conc 30.7 g/dl (32-36); Mean Corpuscular Volume 87.8 fl (80-100); Mean Platelet Volume 10.2 fl (7.4-10.4); Platelet Count Result 275 k/mm3 (150-375); Red Blood Count 3.37 M/mm3 (4.6-6.20); Red Cell Distribution Width 14.7 % (11.5-14.5); White Blood Count 8.6 K/mm3 (4.5-10.0)
[2024-04-26] MEDS: HYDROcodone/acetaminophen (*CRX) 7.5-325 MG TABLET 1 TAB PO (05:48)
[2024-04-26 07:37] LABS: Alanine Aminotransferase 14 U/L (6-50); Albumin Level 2.6 g/dL (3.5-5.1); Alkaline Phosphatase 62 U/L (38-126); Anion Gap 7 mmol/L (4-12); Aspartate Amino Transferase 38 U/L (17-59); Bilirubin,Total 0.3 mg/dL (0.2-1.3); Blood Urea Nitrogen 27 mg/dL (9-20); Calcium 8.6 mg/dL (8.4-10.2); Carbon Dioxide 26 mmol/L (22-30); Chloride 96 mmol/L (98-107); Estimated CRCL calculation 54 ml/min; Estimated Glomerular Filt Rate 60; Glucose 159 mg/dL (65-110); Potassium 4.5 mmol/L (3.4-5.0); Sodium 129 mmol/L (137-145)
[2024-04-26 08:53] LABS: Glucose Point of Care 161 mg/dl (65-105)
[2024-04-26] MEDS: FIDAXOMICIN 200 MG TABLET PO ×2 (08:53→21:32)
[2024-04-26] MEDS: FERROUS SULFATE DRIED 142 MG TABCR PO (08:53)
[2024-04-26] MEDS: CELECOXIB 200 MG CAPSULE PO (08:53)
[2024-04-26] MEDS: CYANOCOBALAMIN 1,000 MCG TABLET 1000 MCG PO (08:53)
[2024-04-26] MEDS: EMPAGLIFLOZIN 25 MG TABLET PO (08:53)
[2024-04-26] MEDS: ENOXAPARIN 40 MG/0.4 ML SYRINGE SUB-Q (08:54)
[2024-04-26] MEDS: HYDROmorphone HCL INJ (*CRX) 1 MG/ML SYR IV PUSH ×3 (08:59→21:34)
--- NOTE | 2024-04-26 09:29 | PM.PNORT ---
Progress Note: A&P Assessment and Plan (1) Diabetic foot ulcer: Qualifiers: Diabetic foot ulcer location: other Diabetes mellitus type: type 2 Laterality: left Non-pressure ulcer stage: with other severity Qualified Code(s): E11.621 - Type 2 diabetes mellitus with foot ulcer; L97.528 - Non-pressure chronic ulcer of other part of left foot with other specified severity Code(s): E11.621 - Type 2 diabetes mellitus with foot ulcer; L97.509 - Non-pressure chronic ulcer of other part of unspecified foot with unspecified severity Status: Acute Assessment and Plan: 3.5 weeks status post revision left foot amputation with excision of the distal 2nd and 3rd metatarsal. Previous transmetatarsal amputation for osteomyelitis. At this time, no signs of infection of the left foot. Small incisional opening which continues to show improvement which communicates with the plantar ulcer which is open with minimal serous drainage. No purulent drainage able to be expressed. No erythema or tracking from the foot. Most recent blood culture 7 days ago with 1 tube negative and 1 tube showing contaminant. Repeat blood cultures on 04/24 negative to date. Cardiology consulted by medicine team for RITESH but patient has refused per notes given negative blood cultures and overall improvement in clinical exam. Plan for left foot is to continue daily dressing changes with silver rope packing and offloading. Continue IV antibiotics. No indication or plans for any further surgery, debridement, or amputation. Of more concern is the patient's overall systemic problems with systemic weakness, upper and lower back pain and tremors. Unsure of etiology. Patient feels that his neck shoulder and low back pain is what is most limiting. He does not feel like he is getting relief from the hydrocodone. Increased pain medication regimen to IV Dilaudid q.3 hours p.r.n. which he has had one dose of and reported significant improvement in pain. Continue pain regimen as ordered and mobilize with PT/OT with improved pain. Ibuprofen contraindicated given his renal status. Celebrex added. (2) Bacteremia: Code(s): R78.81 - Bacteremia Status: Acute Assessment and Plan: Repeat blood cultures drawn 04/24 with NGTD. (3) S/P transmetatarsal amputation of foot: Qualifiers: Laterality: left Qualified Code(s): Z89.432 - Acquired absence of left foot Code(s): Z89.439 - Acquired absence of unspecified foot Status: Acute Time Spent With Patient Time: Reviewed history, exam, radiographs and current labs with attending MD and covering surgeon, Dr. Cotton, who agrees with current plan as indicated above. No further recommendations from Dr. Cotton at this time. Subjective Subjective Date/Time Seen: 04/26/24 09:29 Post Op day: 27 Principal diagnosis: left diabetic foot ulcer Interval history: Patient continues to show improvement in mentation. Still with significant complaints of neck, upper back, bilateral posterior shoulder pain and lower back pain which he feels is not well controlled. He reports very good relief of pain with Dilaudid IV but pain has since returned. [place] not working. Denies left foot pain. Review of Systems Review of Systems: All systems reviewed & are unremarkable except as noted in HPI and below Exam Const: General: cooperative, alert, ill appearing, tired appearing and uncomfortable; No acute distress Nutritional Appearance: average body habitus Orientation/consciousness: oriented to person, oriented to place and oriented to time HENMT: Head: normal to inspection Ears: hearing grossly normal bilaterally Eyes: General: appearance normal, both eyes and all related structures Resp: Effort & Inspection: normal respiratory effort and no audible wheezes Neuro: General: moves all extremities, Normal light touch and pain sensation and CN's II-XI intact bilaterally Speech: normal
--- NOTE | 2024-04-26 09:43 | PM.CNCAR ---
Assessment and Plan Assessment and plan (1) Bacteremia: Code(s): R78.81 - Bacteremia Status: Acute Assessment and Plan: I discussed RITESH with the patient. Discussed indication for the procedure, procedure details, risks vs benefits, etc. At this time, patient does not wish to undergo RITESH. He states that he may consider it if he continues to have persistent bacteremia, but since blood cultures from 04/24 are no growth to date, he would like to hold off on undergoing any procedures at this time. If he does decide to undergo RITESH, the procedure would need to be done with Anesthesia team for sedation -- patient has been getting pain medications during this hospitalization and will need Anesthesia team to achieve adequate sedation during the procedure as he may have a high tolerance to sedative medications. Cardiology will sign off at this time. Please call us back if needed. Recommendations and plan discussed with Hospitalist. History of Present Illness History of Present Illness Consult date/time: 04/26/24 09:43 Requesting physician: Addison Hendricks MD Consult reason: Other (RITESH) Reason For Visit: Frequent Falls Narrative: We are consulted for RITESH. This is a 68 year old male with type 2 diabetes mellitus, chronic kidney disease, chronic anemia who was admitted to [facility] on 04/13/2024 for right arm and shoulder pain after a fall. He was recently admitted to the hospital for osteomyelitis of left foot. Underwent left foot transmetatarsal amputation with debridement of a diabetic foot ulcer on 03/08/2024 and excisional debridement the ulcer to muscle as well as excision of exostosis of the metatarsals on 03/30/2024. Blood cultures from 04/15, 04/17, 04/19 are positive for MSSA. Blood cultures 04/24 are no growth to date. Given MSSA bacteremia, we have been consulted for RITESH to rule out endocarditis. Echocardiogram 04/18 shows: 1. Left ventricular chamber dimension is normal. 2. Left ventricular systolic function is normal, estimated at 65-70%. 3. There is moderate asymmetric septal increased left ventricular wall thickness. 4. The left ventricular diastolic function is grade I diastolic dysfunction. 5. Right ventricular systolic function is normal. 6. There is mild tricuspid valve regurgitation. 7. There is trivial pericardial effusion. Review of Systems Review of Systems: All systems reviewed & are unremarkable except as noted in HPI and below (HPI) [facility] Past Medical History Medical History Bacteremia C. difficile diarrhea Cervical muscle strain Chronic anemia Chronic constipation Chronic fatigue Chronic kidney disease, stage 3b Diabetic peripheral neuropathy Hypercholesterolemia Hypertension Lumbar stenosis Obstructive sleep apnea Peripheral artery disease Type 2 diabetes mellitus UTI (urinary tract infection) Surgical History Surgical History History of amputation of lesser toe of left foot (06/2020) Left 4th toe History of arthroscopy of right knee History of transmetatarsal amputation of left foot (02/2024) Status post surgical removal of nail matrix of toe Family History Family History Father , age 62 Myocardial infarct Lung disease Mother , age 73 Lung disease Sibling , age 67 Lung disease Social History Social History Social History: Surrogate decision-maker: Mark Nair (friend). Code status: Full code. Smoking status: Never smoker Second hand tobacco smoke exposure: No Alcohol intake: never Substance use: never Do You Feel Safe in your Home?: Yes Lack of Transportation: No Lack of Food: Sometimes True Current Housing: I Have Housing Concerned About Future Housing: No Difficulty Paying Gas/Electric Bills: YES Missyul
[2024-04-26 12:18] LABS: Glucose Point of Care 232 mg/dl (65-105)
[2024-04-26] MEDS: INSULIN ASPART (*BKC) 100 UNITS/ML SUB-Q (12:49)
[2024-04-26 17:06] LABS: Glucose Point of Care 156 mg/dl (65-105)
--- NOTE | 2024-04-26 17:25 | PM.IMPN ---
Progress Note: A&P Assessment and Plan (1) Multiple falls: Code(s): R29.6 - Repeated falls Status: Acute (2) Weakness: Code(s): R53.1 - Weakness Status: Acute (3) Diarrhea: Code(s): R19.7 - Diarrhea, unspecified Status: Acute (4) Diabetic foot ulcer: Qualifiers: Diabetes mellitus type: type 2 Diabetic foot ulcer location: other Laterality: left Non-pressure ulcer stage: with other severity Qualified Code(s): E11.621 - Type 2 diabetes mellitus with foot ulcer; L97.528 - Non-pressure chronic ulcer of other part of left foot with other specified severity Code(s): E11.621 - Type 2 diabetes mellitus with foot ulcer; L97.509 - Non-pressure chronic ulcer of other part of unspecified foot with unspecified severity Status: Acute Assessment and Plan: MRI left foot IMPRESSION: 1. First second fifth distal transmetatarsal osteotomies with osteomyelitis extending proximally in the remaining first-third and fifth metatarsals with large draining abscess extending across the first-third osteotomy margins and small abscess along the lateral posterior margin of the fifth metatarsal. 2. Prominent marrow edema and enhancement at both sides of the second and third tarsal metatarsal joints without loss of T1 fat signal suspicious for septic arthritis on the Lisfranc joint with associated and reactive marrow changes versus early osteomyelitis. (5) Obstructive sleep apnea: Code(s): G47.33 - Obstructive sleep apnea (adult) (pediatric) Status: Acute (6) Type 2 diabetes mellitus: Qualifiers: Diabetes mellitus complication detail: with polyneuropathy Diabetes mellitus complication status: with neurologic complications Diabetes mellitus detention insulin use: without project management analyst use Qualified Code(s): E11.42 - Type 2 diabetes mellitus with diabetic polyneuropathy Code(s): E11.9 - Type 2 diabetes mellitus without complications Status: Acute Plan Ulcer of left foot due to type 2 diabetes mellitus #S/P transmetatarsal amputation of foot MRI showed worsening osteomyeltitis Patient had a positive MSSA blood culture on 04/19. 04/25/2024 we ordered RITESH to rule out endocarditis(pt denies to undergo RITESH) The repeat preliminary blood culture results taken on 04/24 shows no growth but we will wait until the final results. Patient will be likely discharged on 6 weeks of antibiotics after that RITESH is performed. Patient needs to go to a rehab and can perform another MRI in 6 weeks and follow-up with the ortho. - Dr. Cotton performed left foot transmetatarsal amputation with debridement of a diabetic foot ulcer on 03/08/2024 and excisional debridement the ulcer to muscle as well as excision of exostosis of the metatarsals on 03/30/2024. -5 weeks status post initial TMA complicated by postoperative plantar wound. Patient returned to the OR 1 week, 7 days ago for revision of the left TMA. - He then presented to office for follow-up postoperatively and underwent total contact cast application. He was set to follow up in an H wound clinic for total contact cast removal and re-application on Tuesday but failed to present to clinic due to feeling unwell and having diarrhea and weakness -04/12 : In the ED Total contact cast removed by the emergency room physician and ortho was consulted . Ortho reports incision well approximated of the left TMA as side from a small area in the middle of the incision which appears to be consistent with a stitch abscess and small amount of drainage from the area was sent for Gram stain (WBCs noted as well as many Gram-positive cocci in clusters) and culture 04/16: sepsis with Staph aureus bacteremia Likely resulting from worsening osteomyelitis MRI left foot IMPRESSION: 1. First second fifth distal transmetatarsal osteotomies with osteomyelitis extending proximally in the remaining first-third and fifth metatarsals with chalo ballard
[2024-04-26] MEDS: levoFLOXacin 750 MG TABLET PO (21:32)
[2024-04-27] VITALS: PULSE 83
[2024-04-27 00:42] LABS: Glucose Point of Care 216 mg/dl (65-105)
[2024-04-27] MEDS: HYDROmorphone HCL INJ (*CRX) 1 MG/ML SYR IV PUSH ×2 (00:44→06:19)
[2024-04-27 04:00] VITALS: PULSE 90
[2024-04-27 05:41] LABS: Hematocrit 32.1 % (42.0-52.0); Hemoglobin 10.1 g/dL (14.0-18.0); Mean Corpuscular HGB Conc 31.5 g/dl (32-36); Mean Corpuscular Hemoglobin 27.2 pg (26-34); Mean Corpuscular Volume 86.5 fl (80-100); Mean Platelet Volume 10.8 fl (7.4-10.4); Platelet Count Result 264 k/mm3 (150-375); Red Blood Count 3.71 M/mm3 (4.6-6.20); Red Cell Distribution Width 14.8 % (11.5-14.5); White Blood Count 8.1 K/mm3 (4.5-10.0)
[2024-04-27 05:56] LABS: Alanine Aminotransferase 10 U/L (6-50); Albumin Level 2.9 g/dL (3.5-5.1); Alkaline Phosphatase 69 U/L (38-126); Anion Gap 9 mmol/L (4-12); Aspartate Amino Transferase 32 U/L (17-59); Bilirubin,Total 0.2 mg/dL (0.2-1.3); Blood Urea Nitrogen 26 mg/dL (9-20); Calcium 8.5 mg/dL (8.4-10.2); Carbon Dioxide 28 mmol/L (22-30); Chloride 94 mmol/L (98-107); Estimated CRCL calculation 54 ml/min; Estimated Glomerular Filt Rate 60; Glucose 169 mg/dL (65-110); Potassium 4.3 mmol/L (3.4-5.0); Sodium 131 mmol/L (137-145)
[2024-04-27 06:00] VITALS: BP 130/62; PULSE 89; RESP 20; TEMP 36.2; O2SAT 100
[2024-04-27] MEDS: ceFAZolin 2 GM/D5W 50 ML 2 GM/50 ML BAG IVPB (06:19)
[2024-04-27] MEDS: GABAPENTIN 300 MG CAPSULE 600 MG PO ×2 (06:19→13:31)
[2024-04-27 08:00] VITALS: BP 117/56; PULSE 88; PULSE 89; RESP 20; O2SAT 100
[2024-04-27] MEDS: CYANOCOBALAMIN 1,000 MCG TABLET 1000 MCG PO (08:47)
[2024-04-27] MEDS: CELECOXIB 200 MG CAPSULE PO (08:47)
[2024-04-27] MEDS: FERROUS SULFATE DRIED 142 MG TABCR PO (08:47)
[2024-04-27] MEDS: EMPAGLIFLOZIN 25 MG TABLET PO (08:47)
[2024-04-27] MEDS: ENOXAPARIN 40 MG/0.4 ML SYRINGE SUB-Q (08:48)
--- NOTE | 2024-04-27 09:16 | PM.PNORT ---
Progress Note: A&P Assessment and Plan (1) Diabetic foot ulcer: Qualifiers: Diabetic foot ulcer location: other Diabetes mellitus type: type 2 Laterality: left Non-pressure ulcer stage: with other severity Qualified Code(s): E11.621 - Type 2 diabetes mellitus with foot ulcer; L97.528 - Non-pressure chronic ulcer of other part of left foot with other specified severity <VIET Harper - Last Filed: 04/27/24 09:34> Code(s): E11.621 - Type 2 diabetes mellitus with foot ulcer; L97.509 - Non-pressure chronic ulcer of other part of unspecified foot with unspecified severity <VIET Harper - Last Filed: 04/27/24 09:34> Status: Acute <VIET Harper - Last Filed: 04/27/24 09:34> Assessment and Plan: 3.5 weeks status post revision left foot amputation with excision of the distal 2nd and 3rd metatarsal. Previous transmetatarsal amputation for osteomyelitis. At this time, no signs of infection of the left foot. Small incisional opening which continues to show improvement which communicates with the plantar ulcer which is open with minimal serous drainage. No purulent drainage able to be expressed. No erythema or tracking from the foot. Most recent blood culture 7 days ago with 1 tube negative and 1 tube showing contaminant. Repeat blood cultures on 04/24 negative to date. Cardiology consulted by medicine team for RITESH but patient has refused per notes given negative blood cultures and overall improvement in clinical exam. Plan for left foot is to continue daily dressing changes with silver rope packing and offloading. Continue IV antibiotics. No indication or plans for any further surgery, debridement, or amputation. Pain improving. Continue pain regimen as ordered and mobilize with PT/OT with improved pain. Ibuprofen contraindicated given his renal status. Celebrex added. Dispo: SNF with IV antibiotics <VIET Harper - Last Filed: 04/27/24 09:34> 4 weeks status post revision left foot amputation with excision of the distal 2nd and 3rd metatarsal. Previous transmetatarsal amputation for osteomyelitis. At this time, no signs of infection of the left foot. Small incisional opening which continues to show improvement which communicates with the plantar ulcer which is open with minimal serous drainage. No purulent drainage able to be expressed. No erythema or tracking from the foot. Most recent blood culture 7 days ago with 1 tube negative and 1 tube showing contaminant. Repeat blood cultures on 04/24 negative to date. Cardiology consulted by medicine team for RITESH but patient has refused per notes given negative blood cultures and overall improvement in clinical exam. Plan for left foot is to continue daily dressing changes with silver rope packing and offloading. Continue IV antibiotics. No indication or plans for any further surgery, debridement, or amputation. Pain improving. Continue pain regimen as ordered and mobilize with PT/OT with improved pain. Ibuprofen contraindicated given his renal status. Celebrex added. Dispo: SNF with IV antibiotics, daily dressing changes left foot. <Liam Cotton MD - Last Filed: 04/27/24 09:33> (2) Bacteremia: Code(s): R78.81 - Bacteremia <VIET Harper - Last Filed: 04/27/24 09:34> Status: Acute <VIET Harper - Last Filed: 04/27/24 09:34> Assessment and Plan: Repeat blood cultures drawn 04/24 with NGTD. <VIET Harper - Last Filed: 04/27/24 09:34> (3) S/P transmetatarsal amputation of foot: Qualifiers: Laterality: left Qualified Code(s): Z89.432 - Acquired absence of left foot <VIET Harper - Last Filed: 04/27/24 09:34> Code(s): Z89.439 - Acquired absence of unspecified foot <VIET Harper - Last Filed: 04/27/24 09:34> Status: Acute <VIET Harper - Last Filed: 04/27/24 09:34
[2024-04-27 09:21] LABS: Glucose Point of Care 160 mg/dl (65-105)
[2024-04-27 10:04] VITALS: BP 105/61
--- NOTE | 2024-04-27 10:55 | PM.DS ---
DS: Admitting Diagnosis Discharge Date 04/27/2024 Admitting Diagnosis Fall DS: Discharge Diagnosis Discharge Diagnosis (1) Multiple falls: Code(s): R29.6 - Repeated falls Status: Acute (2) Weakness: Code(s): R53.1 - Weakness Status: Acute (3) Diarrhea: Code(s): R19.7 - Diarrhea, unspecified Status: Acute (4) Diabetic foot ulcer: Qualifiers: Diabetes mellitus type: type 2 Diabetic foot ulcer location: other Laterality: left Non-pressure ulcer stage: with other severity Qualified Code(s): E11.621 - Type 2 diabetes mellitus with foot ulcer; L97.528 - Non-pressure chronic ulcer of other part of left foot with other specified severity Code(s): E11.621 - Type 2 diabetes mellitus with foot ulcer; L97.509 - Non-pressure chronic ulcer of other part of unspecified foot with unspecified severity Status: Acute Assessment and Plan: MRI left foot IMPRESSION: 1. First second fifth distal transmetatarsal osteotomies with osteomyelitis extending proximally in the remaining first-third and fifth metatarsals with large draining abscess extending across the first-third osteotomy margins and small abscess along the lateral posterior margin of the fifth metatarsal. 2. Prominent marrow edema and enhancement at both sides of the second and third tarsal metatarsal joints without loss of T1 fat signal suspicious for septic arthritis on the Lisfranc joint with associated and reactive marrow changes versus early osteomyelitis. (5) Obstructive sleep apnea: Code(s): G47.33 - Obstructive sleep apnea (adult) (pediatric) Status: Acute (6) Type 2 diabetes mellitus: Qualifiers: Diabetes mellitus complication detail: with polyneuropathy Diabetes mellitus complication status: with neurologic complications Diabetes mellitus longterm insulin use: without longterm use Qualified Code(s): E11.42 - Type 2 diabetes mellitus with diabetic polyneuropathy Code(s): E11.9 - Type 2 diabetes mellitus without complications Status: Acute (7) Osteomyelitis of great toe of left foot: Code(s): M86.9 - Osteomyelitis, unspecified Status: Acute Plan Ulcer of left foot due to type 2 diabetes mellitus #S/P transmetatarsal amputation of foot MRI showed worsening osteomyeltitis Patient had a positive MSSA blood culture on 04/19. 04/25/2024 we ordered RITESH to rule out endocarditis(pt denies to undergo RITESH) The repeat preliminary blood culture results taken on 04/24 shows no growth but we will wait until the final results. Patient will be likely discharged on 6 weeks of antibiotics after that RITESH is performed. Patient needs to go to a rehab and can perform another MRI in 6 weeks and follow-up with the ortho. - Dr. Cotton performed left foot transmetatarsal amputation with debridement of a diabetic foot ulcer on 03/08/2024 and excisional debridement the ulcer to muscle as well as excision of exostosis of the metatarsals on 03/30/2024. -5 weeks status post initial TMA complicated by postoperative plantar wound. Patient returned to the OR 1 week, 7 days ago for revision of the left TMA. - He then presented to office for follow-up postoperatively and underwent total contact cast application. He was set to follow up in an H wound clinic for total contact cast removal and re-application on Tuesday but failed to present to clinic due to feeling unwell and having diarrhea and weakness -04/12 : In the ED Total contact cast removed by the emergency room physician and ortho was consulted . Ortho reports incision well approximated of the left TMA as side from a small area in the middle of the incision which appears to be consistent with a stitch abscess and small amount of drainage from the area was sent for Gram stain (WBCs noted as well as many Gram-positive cocci in clusters) and culture 04/16: sepsis with Staph aureus bacteremia Likely resulting from worsenin
[2024-04-27 12:00] VITALS: PULSE 88
[2024-04-27 12:47] LABS: Glucose Point of Care 199 mg/dl (65-105)
== END 2024-04-27 14:38 | DRG 564 ==
LOC: ANHED 15:02 → ANH3MED 16:16
PROVIDERS: Hospitalist; Internal Medicine; Orthopaedic Surgery; Physician Assistant; Admitting Provider Internal Medicine; Emergency Provider Family Medicine; PCP Family Medicine Adolescent Medicine; Visit Provider General Practice
DX: T87.44 Infection of amputation stump, left lower extremity (principal); A41.01 Sepsis due to Methicillin susceptible Staphylococcus aureus; J18.9 Pneumonia, unspecified organism; L97.528 Non-pressure chronic ulcer of other part of left foot with other specified severity; M86.172 Other acute osteomyelitis, left ankle and foot; A04.72 Enterocolitis due to Clostridium difficile, not specified as recurrent; L02.612 Cutaneous abscess of left foot; E11.621 Type 2 diabetes mellitus with foot ulcer; R29.6 Repeated falls; T87.81 Dehiscence of amputation stump; I12.9 Hypertensive chronic kidney disease with stage 1 through stage 4 chronic kidney disease, or unspecified chronic kidney disease; E11.22 Type 2 diabetes mellitus with diabetic chronic kidney disease; N18.32 Chronic kidney disease, stage 3b; G47.33 Obstructive sleep apnea (adult) (pediatric); E11.42 Type 2 diabetes mellitus with diabetic polyneuropathy; E86.0 Dehydration; B95.61 Methicillin susceptible Staphylococcus aureus infection as the cause of diseases classified elsewhere; D64.9 Anemia, unspecified; S16.1XXA Strain of muscle, fascia and tendon at neck level, initial encounter; W18.30XA Fall on same level, unspecified, initial encounter; M48.062 Spinal stenosis, lumbar region with neurogenic claudication; E78.00 Pure hypercholesterolemia, unspecified; I73.9 Peripheral vascular disease, unspecified; Z89.432 Acquired absence of left foot; Z53.29 Procedure and treatment not carried out because of patient's decision for other reasons
CPT/HCPCS: 29445; 36415; 36569; 70450; 71045; 71260; 72125; 72156; 73030; 73060; 73090; 73502; 73630; 73720; 74160; 74176; 80048; 80053; 80202; 81001; 82565; 82948; 83605; 83735; 84145; 84484; 85025; 85027; 85055; 87040; 87070; 87077; 87081; 87086; 87088; 87147; 87181; 87186; 87205; 87493; 93005; 93306; 93922; 96374; 96375; 96376; 97110; 97116; 97161; 97164; 97165; 97530; 97535; 99284; 99285; A9270; A9577; G0378; J0690; J0692; J1170; J1650; J1815; J1836; J1956; J2185; J2270; J2405; J3370; J7030; P9047; Q9967

== ENCOUNTER 2024-06-12 07:14 | Outpatient (RCR) | payer MEDICARE, MEDICAID, SELFPAY ==
--- NOTE | 2024-04-03 08:53 | PM.PNORT ---
Progress Note: A&P Assessment and Plan (1) Ulcer of left foot due to type 2 diabetes mellitus: Code(s): E11.621 - Type 2 diabetes mellitus with foot ulcer; L97.529 - Non-pressure chronic ulcer of other part of left foot with unspecified severity Status: Acute Assessment and Plan: postoperative for left foot debridement. Operative findings and treatment reviewed with the patient. Wound and incision clean and dry. Indicated for total contact cast. Cast placed. Activity precautions. Reviewed edema control. Follow-up in 1 week for cast change. Plan serial total contact casting until suture removal approx 4 weeks. Subjective Subjective Date/Time Seen: 04/03/24 08:53 Post Op day: 4 Principal diagnosis: Left diabetic foot ulcer Interval history: 4 days status post left foot debridement and excision of metatarsal. Dressing in place. No complaints. Exam Const: General: comfortable; No acute distress Resp: Effort & Inspection: normal respiratory effort and no audible wheezes Extrem: Right lower extremity: lower leg ( Negative Homans sign), ankle Details: normal ROM ( dorsiflexion and plantar flexion intact) and foot Details: vascular exam Details: dorsalis pedis pulse present and normal capillary refill, tendon exam Details: active flexion normal and active extension normal and motor-sensory exam Details: light-touch normal Location: in all toes; no edema Other: LT foot splint in place, clean and dry. Splint and dressing removed. Left foot incision and plantar ulcer clean dry and intact. Minimal swelling. No erythema or drainage. Negative Homans sign Fracture/Casting/Strapping Pre Procedure Consent was obtained, Procedures/risks were explained, Questions were answered, Correct patient identified and Correct side and site confirmed Episode of Care Return Visit Location: Left thigh Casting Cast: Total Contact Leg Cast Application Exam of Affected Area: Color: Normal, Temp: Normal, Pulse: Normal, Blanching: Normal, Capillary Refill: Normal and Sensory Exam: Abnormal (neuropathy) Swelling: Yes (minimal) and Tenderness: No Skin Apperance: Clean and Dry Care: Alcohol Wipes Patient Tolerated Procedure Well: Yes Post Procedure Patient tolerated the procedure well?: Tolerated procedure well
[2024-04-03 12:33] VITALS: BMI 31.6
--- NOTE | 2024-04-09 13:57 | PCWOUND ---
WOCN NOTE Patient called to cancel for tomorrow. He states he fell twice at home in the last three days and has frequent diarrhea. I advised patient he should go to the ER for evaluation. he states he does not have the energy to get out of his chair at this time. I asked if he could call for help to get to the ER, he states he has a friend who will help him if needed. I again advised him to go to the ER. He states he wants to wait until tomorrow and see how he feels. I asked him to call us tomorrow and let us know what is going on and that he really should go to the ER. He states OK.
--- NOTE | 2024-05-18 09:34 | P.HP_ITS ---
H&P: HPI History of Present Illness Date/Time: 05/18/24 09:34 Chief Complaint: Left TMA Narrative: 60-year-old male returns for follow-up today from recent hospitalization to further evaluate wound. He is now 2 months status post left foot excision of exostosis metatarsals, excisional debridement ulcer to muscle. he was then hospitalized for diarrhea, weakness, infectious diarrhea and questionable osteomyelitis of the left foot. He is currently on IV antibiotics and is being treated at a [place] [facility]. He follows up for wound care today. Review of Systems Review of Systems: All systems reviewed & are unremarkable except as noted in HPI and below PMFSH Past Medical History Medical History Bacteremia C. difficile diarrhea Cervical muscle strain Chronic anemia Chronic constipation Chronic fatigue Chronic kidney disease, stage 3b Diabetic peripheral neuropathy Hypercholesterolemia Hypertension Lumbar stenosis Obstructive sleep apnea Peripheral artery disease Type 2 diabetes mellitus UTI (urinary tract infection) Surgical History Surgical History History of amputation of lesser toe of left foot (06/2020) Left 4th toe History of arthroscopy of right knee History of transmetatarsal amputation of left foot (02/2024) Status post surgical removal of nail matrix of toe Family History Family History Father , age 62 Myocardial infarct Lung disease Mother , age 73 Lung disease Sibling , age 67 Lung disease Social History Social History Social History: Surrogate decision-maker: Mark Nair (friend). Code status: Full code. Smoking status: Never smoker Second hand tobacco smoke exposure: No Alcohol intake: never Substance use: never Do You Feel Safe in your Home?: Yes Lack of Transportation: No Lack of Food: Sometimes True Current Housing: I Have Housing Concerned About Future Housing: No Difficulty Paying Gas/Electric Bills: YES Difficulty Paying for Meds: No Currently Unemployed: No Education: Decline to Answer Difficulty w/ Childcare or Family Care: No Living arrangements: alone Additional living arrangements comments: . He has no biological children. He lives in his own home in [place] with his cats. Occupation/Education: retired Spiritual care concerns: No Agree to blood products: Yes Meds Home Medications and Allergies Home Medications Medication Instructions Recorded Confirmed Type cyanocobalamin (vitamin B-12) 1,000 mcg PO QAM #30 tabs 12/18/23 04/13/24 Rx 1,000 mcg tablet (Vitamin B-12) trazodone 150 mg tablet 150 mg PO QHS #90 tabs 01/24/24 04/13/24 Rx dapagliflozin propanediol 10 mg 10 mg PO DAILY #90 tabs 03/27/24 04/13/24 Rx tablet (Farxiga) ferrous sulfate 142 mg (45 mg 142 mg PO DAILY 03/29/24 04/13/24 History iron) tablet,extended release (Slow Release Iron) gabapentin 300 mg capsule 300 mg PO TID 03/30/24 04/13/24 History cefazolin 2 gram intravenous 2 g IV Q12H 6 weeks 04/27/24 Rx solution hydrocodone 7.5 mg-acetaminophen 1 tablet PO Q6H PRN pain #30 tabs 04/27/24 Rx 325 mg tablet Allergies Allergy/AdvReac Type Severity Reaction Status Date / Time No Known Allergies Allergy Verified 04/03/24 12:48 Exam Const: General: cooperative, alert, ill appearing, tired appearing and uncomfortable; No acute distress Nutritional Appearance: average body habitus Orientation/consciousness: oriented to person, oriented to place and oriented to time HENMT: Head: normal to inspection Ears: hearing grossly normal bilaterally Eyes: General: appearance normal, both eyes and all related structures Resp: Effort & Inspection: normal respiratory effort and no audible wheezes Neuro: General: moves all extremities, Normal light touch and pain sensation and CN's II-XI intact bilaterally Speech: normal speech Gait exam (Neuro): Unable to assess gait Coordination: [id number] test normal Extrem: Right lower extremity: lower leg ( Negative Homans sign), ankle Details: normal ROM ( dorsiflexion and plantar flexion intact) and foot Details: vascular exam Details: dorsalis pedis pulse present and normal capillary refill, tendon exam Details: active flexion normal and active extension normal and motor-sensory exam Details: light-touch normal Location: in all toes; no edema Other: LT foot dressing removed. Transmetatarsal amputation incision well healed.. 0.5x0.7x3.1cm plantar ulcer. Minimal serous drainage. No purulence. No erythema. Mild swelling. Assessment and Plan Assessment and plan (1) Diabetic foot ulcer: Qualifiers: Diabetic foot ulcer location: other Diabetes mellitus type: type 2 Laterality: left Non-pressure ulcer stage: with other severity Qualified Code(s): E11.621 - Type 2 diabetes mellitus with foot ulcer; L97.528 - Non- pressure chronic ulcer of other part of left foot with other specified severity Code(s): E11.621 - Type 2 diabetes mellitus with foot ulcer; L97.509 - Non-pressure chronic ulcer of other part of unspecified foot with unspecified severity Status: Acute Assessment and Plan: Wound appears healthy. No signs of worsening infection. No palpable bone. No purulence. No malodor. Continue daily dressing changes. Stop Aquacel Ag rope. Begin Ashely daily with iodoform strip gauze into the wound bed. Follow up in the [place] wound clinic in 3 weeks for re-evaluation. Wound care orders provided for [facility].
--- NOTE | 2024-06-01 08:59 | PCWOUND ---
WOCN NOTE Pateint did not show up for appointment. Placed call to [facility]. Spoke with wound care nurse who states she was not given the appointment. Informed that the appointment was written on the wound care instructions that were sent back to the facility with the patient and transporter. Nurse unsure what happened as she makes the arrangements. Nurse states she will have the transporter contact wound center for rescheduling appointment.
--- NOTE | 2024-06-12 08:52 | PM.PNORT ---
Subjective Subjective Date/Time Seen: 06/12/24 08:52 Post Op day: 4 Principal diagnosis: Left diabetic foot ulcer Interval history: 4 days status post left foot debridement and excision of metatarsal. Dressing in place. No complaints.
--- NOTE | 2024-06-12 13:02 | P.HP_ITS ---
H&P: HPI History of Present Illness Date/Time: 06/12/24 13:02 Chief Complaint: Left TMA Narrative: 60-year-old male returns for follow-up today from hospitalization to further evaluate wound. He is now 3 months status post left foot excision of exostosis metatarsals, excisional debridement ulcer to muscle. He was then hospitalized for diarrhea, weakness, infectious diarrhea and questionable osteomyelitis of the left foot. He has finished his course of IV antibiotics and is being d/c'd home from the SNF. Review of Systems Review of Systems: All systems reviewed & are unremarkable except as noted in HPI and below PMFSH Past Medical History Medical History Bacteremia C. difficile diarrhea Cervical muscle strain Chronic anemia Chronic constipation Chronic fatigue Chronic kidney disease, stage 3b Diabetic peripheral neuropathy Hypercholesterolemia Hypertension Lumbar stenosis Obstructive sleep apnea Peripheral artery disease Type 2 diabetes mellitus UTI (urinary tract infection) Surgical History Surgical History History of amputation of lesser toe of left foot (06/2020) Left 4th toe History of arthroscopy of right knee History of transmetatarsal amputation of left foot (02/2024) Status post surgical removal of nail matrix of toe Family History Family History Father , age 62 Myocardial infarct Lung disease Mother , age 73 Lung disease Sibling , age 67 Lung disease Social History Social History Social History: Surrogate decision-maker: Mark Nair (friend). Code status: Full code. Smoking status: Never smoker Second hand tobacco smoke exposure: No Alcohol intake: never Substance use: never Do You Feel Safe in your Home?: Yes Lack of Transportation: No Lack of Food: Sometimes True Current Housing: I Have Housing Concerned About Future Housing: No Difficulty Paying Gas/Electric Bills: YES Difficulty Paying for Meds: No Currently Unemployed: No Education: Decline to Answer Difficulty w/ Childcare or Family Care: No Living arrangements: alone Additional living arrangements comments: . He has no biological children. He lives in his own home in [place] with his cats. Occupation/Education: retired Spiritual care concerns: No Agree to blood products: Yes Meds Home Medications and Allergies Home Medications Medication Instructions Recorded Confirmed Type cyanocobalamin (vitamin B-12) 1,000 mcg PO QAM #30 tabs 12/18/23 04/13/24 Rx 1,000 mcg tablet (Vitamin B-12) trazodone 150 mg tablet 150 mg PO QHS #90 tabs 01/24/24 04/13/24 Rx dapagliflozin propanediol 10 mg 10 mg PO DAILY #90 tabs 03/27/24 04/13/24 Rx tablet (Farxiga) ferrous sulfate 142 mg (45 mg 142 mg PO DAILY 03/29/24 04/13/24 History iron) tablet,extended release (Slow Release Iron) gabapentin 300 mg capsule 300 mg PO TID 03/30/24 04/13/24 History cefazolin 2 gram intravenous 2 g IV Q12H 6 weeks 04/27/24 Rx solution hydrocodone 7.5 mg-acetaminophen 1 tablet PO Q6H PRN pain #30 tabs 04/27/24 Rx 325 mg tablet Allergies Allergy/AdvReac Type Severity Reaction Status Date / Time No Known Allergies Allergy Verified 04/03/24 12:48 Exam Const: General: cooperative, alert, ill appearing, tired appearing and uncomfortable; No acute distress Nutritional Appearance: average body habitus Orientation/consciousness: oriented to person, oriented to place and oriented to time HENMT: Head: normal to inspection Ears: hearing grossly normal bilaterally Eyes: General: appearance normal, both eyes and all related structures Resp: Effort & Inspection: normal respiratory effort and no audible wheezes Neuro: General: moves all extremities, Normal light touch and pain sensation and CN's II-XI intact bilaterally Speech: normal speech Gait exam (Neuro): Unable to assess gait Coordination: [id number] test normal Extrem: Right lower extremity: lower leg ( Negative Homans sign), ankle Details: normal ROM ( dorsiflexion and plantar flexion intact) and foot Details: vascular exam Details: dorsalis pedis pulse present and normal capillary refill, tendon exam Details: active flexion normal and active extension normal and motor-sensory exam Details: light-touch normal Location: in all toes; no edema Other: LT foot dressing removed. Transmetatarsal amputation incision well healed.. 0.5x0.7x3.1cm plantar ulcer. Minimal serous drainage. No purulence. No erythema. Mild swelling. Assessment and Plan Assessment and plan (1) Diabetic foot ulcer: Qualifiers: Diabetic foot ulcer location: other Diabetes mellitus type: type 2 Laterality: left Non-pressure ulcer stage: with other severity Qualified Code(s): E11.621 - Type 2 diabetes mellitus with foot ulcer; L97.528 - Non- pressure chronic ulcer of other part of left foot with other specified severity Code(s): E11.621 - Type 2 diabetes mellitus with foot ulcer; L97.509 - Non-pressure chronic ulcer of other part of unspecified foot with unspecified severity Status: Acute Assessment and Plan: Wound appears healthy. No signs of worsening infection. No palpable bone. No purulence. No malodor. Continue daily dressing changes. Continue Ashely daily with iodoform strip gauze into the wound bed. Follow up in the [place] wound clinic in 2 weeks for re-evaluation. Wound care orders provided for HH nurse. Dressing supplies to be obtained via .
--- NOTE | 2024-06-25 13:44 | PCWOUND ---
WOCN NOTE Patient called to cancel for tomorrow due to illness, he will call back when he can reschedule. Notified Ortho office.
== END 2024-07-02 23:59 | disposition home or self-care (01) ==
LOC: ANHWOC 07:14
PROVIDERS: PCP Family Medicine Adolescent Medicine; Visit Provider Nurse Practitioner Family
DX: E11.620 Type 2 diabetes mellitus with diabetic dermatitis (principal); E11.621 Type 2 diabetes mellitus with foot ulcer; L97.529 Non-pressure chronic ulcer of other part of left foot with unspecified severity; L08.9 Local infection of the skin and subcutaneous tissue, unspecified; M86.9 Osteomyelitis, unspecified
CPT/HCPCS: 29445; 99213; G0463

== ENCOUNTER 2024-08-28 14:08 | Outpatient (CLI) | payer MEDICARE, MEDICAID, SELFPAY ==
--- NOTE | ~2024-08-28 | CT_ITS ---
EXAMINATION: CT abd pelvis lumbar wo con DATE: 08/28/2024 14:37 INDICATION: Unspecified abdominal pain. TECHNIQUE: Computed tomography (CT) of the abdomen and pelvis and lumbar spine was performed without intravenous contrast. Automated exposure control and iterative reconstruction technique were employed . The dose-length product was 926.38 mGy-cm. COMPARISON: CT abdomen and pelvis 04/17/2024 FINDINGS: CT ABDOMEN AND PELVIS: The visualized portions of lung bases demonstrate mild chronic interstitial estuardo ng disease. A calcified right lung nodule and calcified right hilar and mediastinal lymph nodes are c onsistent with old granulomatous disease. No pleural effusion. The heart size is normal. There are co ronary artery calcifications. No pericardial effusion. There is a 2.8 cm mass in the liver consistent with a hemangioma on prior imaging. Calcifications in the liver and spleen are consistent with old g ranulomatous disease. The gallbladder is normal in size contains gallstones. The pancreas, adrenal gl ands, and right kidney are normal. There is a 1.9 cm hemorrhagic cyst in left kidney. The prostate is moderately enlarged. There are bilateral inguinal hernias containing fat. There are no dilated loops of bowel. The appendix is normal. There are no pathologically enlarged lymph nodes. There is no free intraperitoneal fluid. CT LUMBAR SPINE: There is 3 mm retrolisthesis of L2 on L3. There is 4 degrees levocurvature of lumbar spine. There is mild chronic anterior wedging of T12 vertebral body. There is mildly decreased disc height at L1-L2 and moderately decreased disc height at L2-L3. The following disc levels are specific ally discussed: L1-L2: The disc is bulging. There is mild right and severe left facet joint osteoarthritis. There is mild bilateral neural foraminal stenosis. There is mild central canal stenosis. L2-L3: The disc is bulging. There is mild bilateral facet joint osteoarthritis. There is moderate briana ateral neural foraminal stenosis. There is mild central canal stenosis. L3-L4: The disc is bulging. There is severe bilateral facet joint osteoarthritis. There is moderate r ight and mild left neural foraminal stenosis. There is mild central canal stenosis. L4-L5: The disc is bulging. There is severe bilateral facet joint osteoarthritis. There is mild bilat eral neural foraminal stenosis. There is mild central canal stenosis. L5-S1: The disc does not extend beyond the endplate margin. There is severe bilateral facet joint ost eoarthritis. There is mild bilateral neural foraminal stenosis. There is no central canal stenosis. IMPRESSION: 1. Cholelithiasis. 2. Bilateral inguinal hernias containing fat. 3. Moderate lumbar spondylosis. Reviewed, dictated and finalized at location A. 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
== END 2024-08-28 14:09 | disposition home or self-care (01) ==
LOC: MICIMG 14:09
PROVIDERS: PCP Family Medicine Adolescent Medicine; Visit Provider Nurse Practitioner Family
DX: K80.20 Calculus of gallbladder without cholecystitis without obstruction (principal); M47.896 Other spondylosis, lumbar region; K40.20 Bilateral inguinal hernia, without obstruction or gangrene, not specified as recurrent
CPT/HCPCS: 72131; 74176

== ENCOUNTER 2025-02-22 08:40 | Outpatient (CLI) | payer MEDICARE, MEDICAID, SELFPAY ==
--- OUTSIDE RECORDS SUMMARY | 2025-02-22 08:44 | XMS_ITS | Clinical Summary ---
Author Organization [facility] at the [facility] Office Center Address [facility] [place] [address] Care Team Providers Care [employer] Name Role Phone Rogelio Monique MD Primary Care Prov ider Allergies No known active allergies Medications atorvastatin (LIPITOR) 20 mg tablet Take 1 tablet (20 mg total) by mouth nightly at bedtime 10/05/2023 Active gabapentin (NEURONTIN) 300 mg capsule TAKE 2 CAPSULES BY MOUTH EVERY 8 HOURS 09/27/2023 Active HYDROcodone-oscar taminophen (NORCO) 5-325 mg per tablet 11/29/2023 Activ e metFORMIN XR (GLUCOPHAGE XR) 500 mg 24 hr tablet Take 2 tablets (1,000 mg total) by mouth 2 (two) times a day 11/25/2023 Active sulfamethoxazol e-trimethoprim (BACTRIM DS) 800-160 mg per tablet Take 1 tablet by mouth every 12 (twelve) hours 10/27/2023 Active traZODone (DESYREL) 150 mg tablet 11/29/2023 Active Farxiga 5 mg tablet Take 1 tablet (5 mg total) by mouth daily 01/24/2024 Active Active Problems Problem Noted Date Diagnosed Date Right second toe ulcer, with fat layer exposed 0 12/02/2023 Assessment & Plan (12/02/2023 12:32 PM CDT): Impression: Open ulceration noted to the tip of the left 2nd toe. Patient is being monitored by Podiatry. No concern for infection at this time. Plan: Continue wound care recommendations as per podiatry. -recommend patient to follow-up in 2 weeks for re-evaluation with a lower extremity arterial Doppler. Type 2 diabetes mellitus wit h skin complication, without long-term current use of insulin 12/02/2023 Assessment & Plan (12/02/2023 12:31 PM CDT): Impression: Chronic with good glucose control. Plan: Continue metformin Mixed hyperlipidemia 12/02/2023 Assessment & Plan (12/02/2023 12:33 PM CDT): Impression: Chronic stable. Plan: Continue Lipitor Peripheral vascular disease, unspecified 024 Assessment & Plan (12/02/2023 12:37 PM CDT): Impression: Bilateral lower extremities are warm, well perfused with palpable but diminished distal pulses. Open ulceration is noted to the tip of the left 2nd toe. 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 Patient underwent a lower extremity arterial Doppler an outside facility which was incomplete to the left foot due to a wound dressing. Plan: Recommend repeating lower extremity arterial doppler as previous study was incomplete as the dressings was not removed. -follow-up in 2 weeks for re-evaluation. Social History Tobacco Use Types Packs/Day Years Used Date Smoking Tobacco: Unknown Tobacco Cessation:Counseling Given: Not Answered Sex and Gender Information Value Date Recorded Sex Assigned at Not on file Legal Sex Male 2:05 PM [employer] TRAFF[employer] Gender Identity Not on file Sexual Orientation Not on file Obstetrics History Last Filed Vital Signs Vital Sign Reading Time Taken Comments Blood Pressure 136/82 02/01/2024 2:59 PM CDT Pulse 80 02/01/2024 2:59 PM CDT Temperature - - Respiratory Rate - - Oxygen Saturation - - Inhaled Oxygen Concentration - - Weight 100.7 kg (222 lb) 02/01/2024 2:59 PM CDT Height 177.8 cm (5' 10) 02/01/2024 2:59 PM CDT Body Mass Index 31.85 02/01/2024 2:59 PM CDT Plan of Treatment Health Maintenance Due Date Last Done Comments Albumin Creatinine Ratio, Urine 1955 Colon Cancer Screening-Colonoscopy 1955 Depression Screening 1955 Fall Risk Assessment 1955 Hemoglobin A1C 1955 Hepatitis C Screening 1955 Prostate Cancer Screening-PSA 1955 eGFR 1955 Dilated Eye Exam 1955 Foot Exam 1955 Lipid Panel 1955 DTaP/Tdap/Td Vaccine (1 - Tdap) 12/09/1966 Hepatitis B Screening 12/09/1973 Pneumococcal vaccine 65+ (1 of 2 - PCV) 12/09/1974 Zoster Vaccine (1 of 2) 12/09/2005 Abdominal Aortic Aneurysm (AAA) Screen 12/09/2020 Well Visit 65+ 12/09/2020 Influenza Vaccine (#1) 2025 Insurance [facility] MEDICARE ADVANTAGE IDPA Care Teams [employer] Relationship Specialty Start Date End Date Rogelio Monique MD [address] [place] [id number] PCP - General Family Medicine 10/18/23
--- OUTSIDE RECORDS SUMMARY | 2025-02-22 08:44 | XMS_ITS | Clinical Summary ---
Author Organization [facility] Address [address] [place] [id number] Care Team Providers Care Dog Behaviorist Name Role Phone Unavailable Primary Care Provider Unavailabl e Social History Tobacco Use Types Packs/Day Years Used Date Smoking Tobacco: Never Assessed Sex and Gender Information Value Date Recorded Sex Assigned at Not on file Legal Sex Male 8:17 PM CDT Gender Identity Not on file Sexual Orientation Not on file Plan of Treatment Health Maintenance Due Date Last Done Comments Colorectal Cancer Screening Colonoscopy (10 Years) 1955 Hepatitis C 12/09/1973 DTaP, Tdap and Td Vaccines ( 1 - Tdap) 12/09/1974 Pneumococcal Vaccine: 50+ Ye ars (1 of 1 - PCV) 12/09/2005 Zoster Vaccines (1 of 2) 12/09/2005 COVID-19 Vaccine ( - 2023-2 5 season) 2024 RSV Immunization or 60+ Years (1 - 1-dose 75+ series) 12/09/2030 Meningococcal B Vaccine Aged Out No l onger eligible based on patient's age to complete this topic Meningococcal Vaccine Aged Out No jame khadar eligible based on patient's age to complete this topic RSV Immunizations Under 20 Months Aged Out No longer eligible based on patient's age to complete this topic
--- OUTSIDE RECORDS SUMMARY | 2025-02-22 08:44 | XMS_ITS | Referral Summary ---
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
[2025-02-22 09:10] LABS: Hematocrit 43.5 % (42.0-52.0); Hemoglobin 14.5 g/dL (14.0-18.0); Immature Granulocyte Percent A 0.2 % (0-0.5); Immature Platelet Fraction Pct 5.7 % (0.9-11.2); Lymphocytes Absolute Auto 1.84 K/mm3 (0.9-3.2); Mean Corpuscular HGB Conc 33.3 g/dl (32-36); Mean Corpuscular Hemoglobin 30.5 pg (26-34); Mean Corpuscular Volume 91.6 fl (80-100); Nucleated Red Blood Cells Absolute Auto 0.000 K/mm3 (0.0-0.012); Nucleated Red Blood Cells Perc 0.0 % (0.0-0.2); Platelet Count Result 130 k/mm3 (150-375); Red Blood Count 4.75 M/mm3 (4.6-6.20); White Blood Count 5.6 K/mm3 (4.5-10.0)
[2025-02-22 09:48] LABS: Alanine Aminotransferase 18 U/L (6-50); Albumin Level 4.3 g/dL (3.5-5.1); Alkaline Phosphatase 60 U/L (38-126); Anion Gap 12 mmol/L (4-12); Aspartate Amino Transferase 21 U/L (17-59); Bilirubin,Total 0.3 mg/dL (0.2-1.3); Blood Urea Nitrogen 21 mg/dL (9-20); Calcium 9.7 mg/dL (8.4-10.2); Carbon Dioxide 22 mmol/L (22-30); Chloride 105 mmol/L (98-107); Cholesterol 204 mg/dL (0-200); Estimated Glomerular Filt Rate 45; Glucose 147 mg/dL (65-110); HDL Direct 41 mg/dL; Potassium 4.5 mmol/L (3.4-5.0); Sodium 139 mmol/L (137-145); Total Protein 7.6 g/dL (6.3-8.2); Triglycerides 157 mg/dL (<150)
[2025-02-22 09:58] LABS: Hemoglobin A1C 6.3 % (<5.7)
[2025-02-22 10:00] LABS: Thyroid Stimulating Hormone Reflex 1.500 uIU/mL (0.465-4.68)
[2025-02-22 10:14] LABS: MALB Creatinine Ratio 251.1 mg/g (0-30)
[2025-02-22 10:18] LABS: Prostate Specific Antigen 1.8 ng/mL (< OR = 4.0)
== END 2025-02-22 08:41 | disposition home or self-care (01) ==
LOC: ANHLAB 08:42
PROVIDERS: PCP Nurse Practitioner Family; Visit Provider Nurse Practitioner Family
DX: D64.9 Anemia, unspecified (principal); F32.9 Major depressive disorder, single episode, unspecified; E78.00 Pure hypercholesterolemia, unspecified; E11.3391 Type 2 diabetes mellitus with moderate nonproliferative diabetic retinopathy without macular edema, right eye; Z79.4 Long term (current) use of insulin; E11.3312 Type 2 diabetes mellitus with moderate nonproliferative diabetic retinopathy with macular edema, left eye; R31.29 Other microscopic hematuria; Z12.5 Encounter for screening for malignant neoplasm of prostate; I12.9 Hypertensive chronic kidney disease with stage 1 through stage 4 chronic kidney disease, or unspecified chronic kidney disease; N18.32 Chronic kidney disease, stage 3b
CPT/HCPCS: 36415; 80053; 80061; 82043; 83036; 84153; 84443; 85025; 85055; G0103